=== PATIENT | female | born 1995 | race American Indian/Alaskan Native ===

== ENCOUNTER → 2018-02-15 16:00 | Outpatient (CLI) | payer OTHER, SELFPAY ==
[2018-02-18 14:12] LABS: HPV Reflexed? NOT INDICATED
--- OUTSIDE RECORDS SUMMARY | 2018-04-13 11:46 | XMS RPT_ITS ---
:1995 Author Organization OHIP Care Team Providers Name Role Phone Ladi Mota Attending Unavailable Ladi Mota Referring Unavailable Primay Care Physicia, No Primary Care Unavailable Dillan Reese Attending Unavailable No Doctor Assigned, Nodr Primary Care Unavailable No Doctor Assigned, Nodr Primary Care Unavailable Ana Mackey Admitting Unavailable AsbAna oviedo Attending Unavailable CHESTER SAM Attending Unavailable SELF, SELF Referring Unavailable SAM, CHESTER Fox Attending Unavailable SAM, CHESTER J Referring Unavailable SAM, CHESTER Ruddy Attending Unavailable SELF, SELF Referring Unavailable SAM, CHESTER J Attending Unavailable SELF, SELF Referring Unavailable PROBLEMS PROBLEMS DATE TYPE CONDITION / CODE ATTENDING STATUS SOURCE 02/16/2018 Unknown Z12.4 - Jerry Mota Encounter for [facility] screening for Hospital malignant Repository neoplasm of cervix / Z12.4(ICD-10) 12/27/2017 Admitting Depression / CHESTER SAM Active [employer] Diagnosis 32() J System ([place]) Repository 10/05/2017 Admitting Follow-up / FLACO CHESTER Active [employer] Diagnosis 145() [place] Rep[place] 09/09/2017 Admitting Establish Care / FLACO [place]STER Active [employer] Diagnosis 42() [place] Repository PROCEDURES PROCEDURES No Procedure Records FoundRESULTS RESULTS PAP I-G W/RFX Collected: 02/15/2018 Status: F Source: LILY HRHPV-APTIMA 4:00 PM [facility] REPOSITORY Order Comment: CYTOLOGY INFORMATION: - CLINICAL INFORMATION: - DATE LMP/MENOPAUSE: [id number] LMP - COLLECTION VIAL: Thin Prep Vial - [employer] DIRECTOR SOURCE: CERVICAL/ENDOCERVICAL - COLLECTION TECHNIQUE: BRUSH/SPATULA Specimen Comment: [id number] Specimen Comment: Source.............Cervix;Endocervix Specimen Comment: LMP / Prev Treat...[id number] Specimen Comment: No. of containers..01 ThinPrep Vial TYPE CODE TESTS RESULT OUT OF RANGE REFERENCE UNITS LAB L7400.0800 . Normal DIAGN Comment Result Comment: NEGATIVE FOR INTRAEPITHELIAL LESION AND MALIGNANCY. LAB L7400.0900 . Normal ADEQ Comment Result Comment: Satisfactory for evaluation. Endocervical and/or squamous metaplastic cells (endocervical component) are present. LAB L7400.1400 . Normal PERFORM Comment Result Comment: Ivet Obrien, Supervisory Calendar Control Clerk Blood Bank (ASCP) LAB L7400.2575 . Normal TEST METHOD Comment Result Comment: This liquid based ThinPrep(R) pap test was screened with the use of an image guided system. LAB L7400.2600 . Normal . COMM LAB L7400.2700 . Normal PAPSMR Comment Result Comment: The Pap smear is a screening test designed to aid in the detection of premalignant and malignant conditions of the uterine cervix. It is not a diagnostic procedure and should not be used as the sole means of detecting cervical cancer. Both false-positive and false-negative reports do occur. LAB L7400.2800 . Normal HPV RFLX Comment Result Comment: The HPV DNA reflex criteria were not met with this specimen result therefore, no HPV testing was performed. Performed at: [facility] [address] [id number] Occupational Therapist: Francisca Khoury MD, Phone: [phone] Performed By: #### L7400.0353 #### [facility] (refer to report for specific site) refer to report for address and phone number CBC(NO DIFF) Collected: 09/11/2017 Status: F Source: [place] 10:10 AM SYSTEM ([place]) REPOSITORY TYPE CODE TESTS RESULT OUT OF REFERENCE UNITS RANGE LAB WBC 3.6-11.0 /cmm WBC COUNT 7.5 LAB RBC 4.0-5.4 /cmm RBC COUNT 4.78 LAB HGB 12.0-16.0 G/DL HEMOGLOBIN 14.4 LAB HCT 36.0-48.0 % HEMATOCRIT 41.7 LAB MCV 80.0-100.0 FL MCV 87.1 LAB MCH 26.0-35.0 PG MCH 30.0 LAB MCHC 27.0-37.0 G/DL MCHC 34.4 LAB RDW 11.5-14.5 % RDW 12.7 LAB PLTC 130.0-400.0 /cmm PLATELET COUNT 315 LAB MPV 7.4-11.0 FL MPV 8.9 Performed By: #### CMPF, RTSH, HEMOG #### Testing performed at [facility] [address] [place] [address] CMP FASTING Collected: 09/11/2017 Status: F Source: [facility] 10:10 AM SYSTEM ([place]) REPOSITORY TYPE CODE TESTS RESULT OUT OF REFERENCE UNITS RANGE LAB GLF 70-100 MG/DL GLUCOSE 81 FASTING Result Comment: NORMAL <100 mg/dL PREDIABETES 101-126 mg/dL DIABETES 126 mg/dL or higher LAB BUN 7-20 MG/DL BLOOD UREA 11 NITROGEN LAB CRET 0.52-1.04 MG/DL CREATININE SERUM 0.6 LAB NA 136-145 MMOL/L SODIUM 138 LAB K 3.5-5.1 MMOL/L POTASSIUM 3.9 LAB CL 98-107 MMOL/L CHLORIDE 107 LAB CA 8.4-10.2 MG/DL CALCIUM 9.1 LAB TP 6.3-8.2 GM/DL TOTAL PROTEIN 7.3 LAB ALB 3.5-5.0 G/dl ALBUMIN 4.1 LAB TBIL 0.2-1.2 MG/DL BILIRUBIN TOTAL 0.5 LAB AST 15-41 IU/L AST 17 LAB ALKP 38-126 IU/L ALK 54 PHOSPHATASE LAB CO2 22-30 MMOL/L CO2 23 LAB AG 1.3-2.2 RATIO A:G RATIO 1.3 LAB ALT 14-54 IU/L ALT 14 LAB GFR ml/min/1.73s q.m EST. GFR,Non >60 LAB GFRB ml/min/1.73s q.m EST. GFR, >60 Iranian LAB GFRCOM GFR Information Average GFR for 20-29 years old = 116. Result Comment: Chronic Kidney disease, GFR = <60. Kidney failure, GFR = <15. The GFR estimate is not adjusted for extreme body surface area or acute process, nor has it been validated for women or ethnic groups other than and . Performed By: #### CMPF, RTSH, HEMOG #### Testing performed at [address] [address] TSH,REFLEX FREE T4 Collected: 09/11/2017 Status: F Source: [facility] 10:10 AM [place] ([place] REPOSITORY TYPE CODE TESTS RESULT OUT OF RANGE REFERENCE UNITS LAB RTSH 0.45-5.33 uIU/ML 1.913 TSH,REFLEX FREE T4 Performed By: #### CMPF, RTSH, HEMOG #### Testing performed at [address] [address] Observed: 09/09/2017 Status: F Source: [facility] URINE CULTURE 10:28 AM [place] ([place] REPOSITORY SPECIMEN DESCRIPTION URINE CLEAN CATCH UA DIPSTICK NITRITE NEGATIVE * Result Note: LEUKOCYTE POSITIVE * CULTURE NO PATHOGENS ISOLATED * Result Note: Testing performed at [place] [address] * REPORT STATUS 09/11/2017 * Result Note: FINAL * Performed By: #### AURNC #### Testing performed at [address] [address] [place] [address] ALLERGIES ALLERGIES DATE TYPE / CODE NAME / CODE REACTION SEVERITY SOURCE 04/18/2015 Drug mushroom/[id number] Swelling Unknown [facility] Allergy/416 188(RXNORM) [facility] 224557(SNOM Repository ED CT) Drug/388096 Augmentin HIVES Rastafarian 003(SNOMED [facility] CT) System Repository Drug/937374 No Known [facility] CT) System Repository ENCOUNTERS ENCOUNTERS ADMIT/DISCHARGE ACCOUNT NUMBER ADMITTING ENCOUNTER LOCATION SOURCE CLASS 02/15/2018 [id number] Ambulatory [facility] ding:LABSPEC Repository 12/27/2017 [id number] [facility] 10/30/2017/10/31/19 [id number] [place], Emergency Rastafarian Rastafarian 18 [facility] ding:[facility] EDRoom: Repository 10/30/2017 [id number] Ambulatory [address] [place] [address] Repository 10/05/2017 [id number] [facility] 09/11/2017 [id number] Ambulatory [address] [place] [address] ([place]) Repository 09/09/2017 [id number] Ambulatory [address] [place] [address] ([place]) Repository 04/13/2017/04/13/19 [id number] Ambulatory [address] ding:[facility] Repository IMRoom: Room 4 PAYERS PAYERS ENCOUNTER GUARANTOR PAYER SUBSCRIBER SOURCE [facility] Posey Castella [id number] Insurance:MEDICAL NIROSKYDOB: [facility] [place] Number: Repository [id number]: [phone] [id number] [phone] () Date:[id number] [address]IL: 02/15/2018 Secondary NOT GIVENUNK Lily Insurance:SELF PAY [facility] Number: Effective Repository Date:2018-02-15 10/30/2017 [facility] NIROSKYDOB: Insurance:Medical OSBORNDOB: [facility] Number: [id number] [facility] Repository [place], [place] Date:2017-10-[address] [place] [id number]: [id number] [id number]: Name:Medical MutualPO () [address] [place] [address] ()Tel: [phone]: [phone] 10/30/2017 [facility] NIROSKYDOB: Insurance:Medical NIROSKYDOB: [facility] [id number] Repository [place] Number: [place], [place] [id number] [place], [place] [id number]: Date:Plan Name:Health [id number]: (HP) (HP) 10/30/2017 [facility] Insurance:Medical NIROSKYDOB: [facility] [id number] Repository Number: [place] [id number] [place], [place] Date:Plan Name:Health [id number]: () 04/13/2017 [facility] OSBORNDOB: Insurance:1500 OSBORNDOB: [facility] [place] [id number] System [place] Number: Effective [address] Repository [place], [place] Date:2017-04-[address] [place] [id number]: [id number]: Name:CD:[id number] O () [address], [place] ()Tel: [phone]: [phone]
== END ==
PROVIDERS: Referring Provider Obstetrics & Gynecology; Visit Provider Obstetrics & Gynecology
DX: Z12.4 Encounter for screening for malignant neoplasm of cervix (principal)
CPT/HCPCS: 87624; 88175; G0145

== ENCOUNTER → 2018-06-14 14:58 | Outpatient (CLI) | payer OTHER, SELFPAY ==
[2015-04-18 20:05] VITALS: BMI 45.5
[2018-06-14 17:19] LABS: Chlamydia Trachomatis by PCR Negative (Negative); Neisserai gonorrhoeae by PCR Negative (Negative); Probe Check PASS; Sample Adequacy Control PASS; Specimen Processing Control PASS
== END ==
PROVIDERS: Visit Provider Obstetrics & Gynecology
DX: Z11.3 Encounter for screening for infections with a predominantly sexual mode of transmission (principal)
CPT/HCPCS: 87491; 87591

== ENCOUNTER → 2018-06-30 16:14 | Outpatient (CLI) | payer OTHER, SELFPAY ==
[2015-04-18 20:05] VITALS: BMI 45.5
[2018-06-30 17:51] LABS: Absolute Lymphocyte Count 2.36 X10^3/ul (0.83-4.51); Absolute Neutrophil Count 9.3 X10^3/uL (2.0-7.7); Basophil# 0.02 X10^3/uL; Basophil% 0.2 % (0-1); Eosinophil# 0.11 X10^3/uL; Eosinophils% 0.9 % (0-5); Hematocrit 39.1 % (37-47); Lymphocyte # 2.36 X10^3/ul (4.0); Lymphocyte % 18.9 % (19-41); Mean Corp Hgb Conc 33.2 g/gl (32-36); Mean Corpuscular Hgb 29.2 pg (27.0-32.0); Mean Corpuscular Volume 87.9 fL (81-99); Mean Platelet Vol. 10.6 fl (6.2-12.0); Monocyte# 0.68 X10^3/uL; Monocyte% 5.4 % (0-10); Neutrophil # 9.31 X10^3/uL (2.7-7.7); Neutrophil % 74.4 % (47-70); Platelet Count 297 K/mm3 (150-450); RBC Distribution Width CV 12.4 % (11.6-14.6); RBC Distribution Width SD 39.9 fl (35.1-43.9); Red Blood Count 4.45 M/mm3 (4.2-5.4); White Blood Count 12.5 K/mm3 (4.4-11.0)
[2018-06-30 17:56] LABS: Color, Urine Yellow (Yellow); Glucose, Dipstick Normal (Normal); Ketone-Dipstick Negative (Negative); Leukocyte Esterase-Dipstick Negative /ul (Negative); Nitrite-Dipstick Negative (Negative); Occult Blood-Urine Negative /ul (Negative); Protein-Dipstick Negative (Negative); Urine Bilirubin Dipstick Negative (Negative); Urine Clarity Clear (Clear); Urine Urobilinogen Normal (Normal); Urine pH 6.5 (5.0 - 8.0)
[2018-06-30 18:00] LABS: POSITIVE COUNT NO; POSITIVE DIFFERENTIAL NO; POSITIVE MORPHOLOGY NO
[2018-06-30 18:04] LABS: Amphetamine Urine VISTA NEGATIVE (<1000 ng/mL); Barbiturate Urine VISTA NEGATIVE (< 200 ng/mL); Benzodiazepine Urine VISTA NEGATIVE (< 200 ng/mL); Cocaine Urine VISTA NEGATIVE (< 300 ng/mL); Ecstacy Urine VISTA NEGATIVE (< 500 ng/mL); Methadone Urine VISTA NEGATIVE (< 300 ng/mL); PCP Urine VISTA NEGATIVE (< 25 ng/mL); THC Urine VISTA NEGATIVE (< 50 ng/mL); Vista UDS pH Range 5
[2018-06-30 18:08] LABS: Thyroid Stim Hormone (TSH) 2.87 uIU/mL (0.358-3.74)
[2018-06-30 19:45] LABS: HIV - WCH Non-Reactive (Nonreactive); Rubella IgG > 500.0 IU/mL
[2018-07-01 04:56] LABS: Prenatal RPR NONREACTIVE (NONREACTIVE)
[2018-07-02 15:28] LABS: HEPATITIS B SURFACE AG Negative (Negative); Hep C Antibodies <0.1 s/co ratio (0.0-0.9)
== END ==
PROVIDERS: Visit Provider Obstetrics & Gynecology
DX: Z34.81 Encounter for supervision of other normal pregnancy, first trimester (principal)
CPT/HCPCS: 36415; 80307; 81002; 84443; 85025; 86703; 86762; 86803; 87340

== ENCOUNTER → 2018-10-25 09:48 | Outpatient (CLI) | payer OTHER, SELFPAY ==
[2018-10-25 10:51] LABS: Hematocrit 39.3 % (37-47); Mean Corp Hgb Conc 33.1 g/dL (32-36); Mean Corpuscular Volume 87.5 fL (81-99); Mean Platelet Vol. 10.5 fl (6.2-12.0); Platelet Count 266 K/mm3 (150-450); RBC Distribution Width CV 12.9 % (11.6-14.6); RBC Distribution Width SD 41.1 fl (35.1-43.9); Red Blood Count 4.49 M/mm3 (4.2-5.4)
[2018-10-25 10:52] LABS: Glucose Challenge Gest 1H 50g 100 mg/dL (70-140)
== END ==
PROVIDERS: Visit Provider Obstetrics & Gynecology
DX: Z34.83 Encounter for supervision of other normal pregnancy, third trimester (principal)
CPT/HCPCS: 36415; 82950; 85027

== ENCOUNTER → 2018-12-23 16:27 | Outpatient (CLI) | payer OTHER, SELFPAY ==
[2015-04-18 20:05] VITALS: BMI 45.5
== END ==
PROVIDERS: Visit Provider Obstetrics & Gynecology
DX: Z36.85 Encounter for antenatal screening for Streptococcus B (principal)
CPT/HCPCS: 87081

== ENCOUNTER 2018-12-27 05:05 | Outpatient (CLI) | payer OTHER, SELFPAY ==
[2015-04-18 20:05] VITALS: BMI 45.5
[2018-12-27 05:42] VITALS: BMI 48.5
--- NOTE | 2018-12-28 07:45 | OB.TRI.HP_ITS ---
History of Present Illness Date of Service: 12/27/18 Was patient seen by the physician?: No Reason For Visit: Rule Out Labor Date of Service: 12/27/18 Final AUGUST: 01/15/19 Final AUGUST Source: US <20 weeks Gestational age: 37 Weeks and 3 Days History of Present Illness: Jelani Nagy RN, pt c/o contractions, cervix 2/50/-2 w/o international exchange coordinator time, BP 141/83; BOW intact; other vital signs stable Allergies amoxicillin Allergy (Verified 12/27/18 05:44) Hives mushroom Allergy (Verified 04/18/15 20:25) Swelling NST - FHR Rate Baby A Baseline: 125 Variability:: Moderate Accelerations:: 15 x 15 Decelerations:: None NST Reactive:: Yes FHR Category:: Category I Uterine Activity:: Q 2-3 minutes Impression/Plan Impression: 26yo at 37w2d gestation by L=9w2dUS Matt with no cervical change Reactive NST Plan: Recheck BP, if WNL may discharge home with labor precautions, FM counts, frequent rest periods, increase fluids
== END 2018-12-27 06:10 | disposition home or self-care (01) ==
LOC: WPOUT 05:36 → WP 05:37
PROVIDERS: Referring Provider Obstetrics & Gynecology; Visit Provider Obstetrics & Gynecology
DX: Z34.93 Encounter for supervision of normal pregnancy, unspecified, third trimester (principal); Z3A.37 37 weeks gestation of pregnancy
CPT/HCPCS: 59025; 59050; 99218; G0378

== ENCOUNTER 2019-01-05 14:00 | Outpatient (CLI) | payer OTHER, SELFPAY ==
[2019-01-05 14:38] VITALS: BMI 49.6
--- NOTE | 2019-01-06 10:50 | OB.TRI.NOTE ---
History of Present Illness Reason For Visit: R/O LABOR Date of Service: 01/05/19 Final AUGUST: 01/15/19 Final AUGUST Source: US <20 weeks Gestational age: 38 Weeks and 4 Days History of Present Illness: 38+ week intrauterine presents with some lower abdominal cramping. Allergies amoxicillin Allergy (Verified 01/05/19 14:40) Hives mushroom Allergy (Verified 01/05/19 14:40) Swelling NST - FHR Rate Baby A NST Reactive:: Yes FHR Category:: Category I Impression/Plan 38+ week intrauterine with false labor. No cervical change after observation. Patient discharged home with routine instructions to follow-up when contractions increase. Encouraged p.o. fluid.
== END 2019-01-05 15:30 | disposition home or self-care (01) ==
LOC: WPOUT 14:29 → OBT 14:30
PROVIDERS: Referring Provider Obstetrics & Gynecology; Visit Provider Obstetrics & Gynecology
DX: O47.1 False labor at or after 37 completed weeks of gestation (principal); Z3A.38 38 weeks gestation of pregnancy
CPT/HCPCS: 59025; 59050; 99218; G0378

== ENCOUNTER 2019-01-12 06:55 | Inpatient (IN) | payer OTHER, SELFPAY ==
[2019-01-12] MEDS: Lactated Ringers 1,000 ML 50 ML IV (07:30)
[2019-01-12 07:38] VITALS: BMI 50.1
[2019-01-12 08:00] LABS: Absolute Lymphocyte Count 2.04 X10^3/uL (0.83-4.51); Absolute Neutrophil Count 6.2 X10^3/uL (2.0-7.7); Basophil# 0.03 X10^3/uL; Basophil% 0.3 % (0-1); Eosinophils% 1.1 % (0-5); Hemoglobin 13.8 g/dL (12.0-15.0); Lymphocyte # 2.04 X10^3/ul (4.0); Lymphocyte % 22.1 % (19-41); Mean Corp Hgb Conc 32.9 g/dL (32-36); Mean Corpuscular Volume 85.4 fL (81-99); Monocyte# 0.77 X10^3/uL; Monocyte% 8.4 % (0-10); NRBC Flagged by Analyzer 0 % (0-5); Neutrophil # 6.24 X10^3/uL (2.7-7.7); Neutrophil % 67.8 % (47-70); Platelet Count 249 K/mm3 (150-450); RBC Distribution Width CV 13.6 % (11.6-14.6); RBC Distribution Width SD 41.9 fl (35.1-43.9); Red Blood Count 4.92 M/mm3 (4.2-5.4); White Blood Count 9.2 K/mm3 (4.4-11.0)
[2019-01-12] MEDS: Oxytocin 30 units/NS 500 ml 30 UNITS/500 ML IV.SOLN IV (08:14)
--- NOTE | 2019-01-12 10:45 | PCM.PN.BLA ---
Progress Note LABOR PROGRESS NOTE Contractions are irregular and mild to moderate. Denies headache, vision changes or upper abdominal pain. AVSS, BP 142/89 GEN - NAD, AAO x 3 FHR 135, moderate variability, + accelerations, no decelerations TOCO 1-2/10 min SVE 3/75/-2, moderate and midposition A/P: 24yo @ 39 4/7wga, IOL for macrosomia, Cat I FHR -Amniotomy performed with clear fluid -Continue pitocin as tolerated by mother and fetus
[2019-01-12] MEDS: Lactated Ringers 500 ML 999 ML IV (11:45)
[2019-01-12] MEDS: fentaNYL-bupivacaine (epidural) 100 ML BAG EPIDURAL (12:12)
[2019-01-12] MEDS: Ondansetron 4 MG/2 ML Vial IV (12:51)
[2019-01-12] MEDS: Oxytocin 30 units/NS 500 ml 30 UNITS/500 ML IV.SOLN 334 UNITS IV (15:20)
--- NOTE | 2019-01-12 15:34 | PCM.OPRPT ---
Vaginal Delivery Maternal Presentation: Elective Induction Method of Induction: Pitocin Amniotic Membrane Rupture Type: Artificial Rupture of Membrane time: 01/12/19 1030h Amniotic Fluid Description: Clear Final AUGUST: 01/15/19 Final AUGUST Source: US <20 weeks Gestational age: 39 Weeks and 4 Days Date of Procedure: 01/12/19 Pre-Operative Diagnosis: 39 4/7wga Post-Operative Diagnosis: 39 4/7wga Surgery/ Procedure Performed: Spontaneous Vaginal Delivery Anesthesiologist: Stephan Bhardwaj Type of Anesthesia: Epidural Description of Procedure: Patient was FD\+5 station on my arrival. She pushed once to deliver a vigorous male . was placed on the maternal abdomen and further attended by nursery personnel. The cord was doubly clamped and cut. The placenta delivered spontaneously and appeared intact on inspection. First degree perineal laceration was repaired with 3-0 Vicryl. An intrauterine exam was performed with retrieval of clot without hemorrhage. The fundus was firm. Sponge counts were correct x 2. Presentation: Vertex Placental Delivery Description: Spontaneous Placenta Disposition: [facility] Cord Vessel Description: 3 Vessels Nuchal Cord Compression: Without compression Cord Entanglement: None Estimated Blood Loss: 250 ml Infant A gender: Male (1 minute): 8 (5 minute): 9 Episiotomy Description: None Laceration: Midline, 1st degree Medications given after delivery: IV Pitocin Complications: None
[2019-01-12] MEDS: Ibuprofen 600 MG Tablet PO (17:31)
[2019-01-12 17:45] VITALS: BP 168/89; PULSE 94; RESP 18; TEMP 37.6
[2019-01-12 18:23] LABS: Hematocrit 40.7 % (37-47); Hemoglobin 13.2 g/dL (12.0-15.0); Mean Corp Hgb Conc 32.4 g/dL (32-36); Mean Corpuscular Hgb 27.8 pg (27.0-32.0); Mean Corpuscular Volume 85.7 fL (81-99); Mean Platelet Vol. 11.8 fl (6.2-12.0); Platelet Count 202 K/mm3 (150-450); RBC Distribution Width CV 13.6 % (11.6-14.6); RBC Distribution Width SD 41.5 fl (35.1-43.9); Red Blood Count 4.75 M/mm3 (4.2-5.4); White Blood Count 17.4 K/mm3 (4.4-11.0)
[2019-01-12 18:35] VITALS: BP 141/74; PULSE 96; RESP 16; TEMP 36.9
[2019-01-12 19:08] LABS: Uric Acid 8.2 mg/dL (2.6-6.0)
[2019-01-12 19:34] LABS: ALB/GLOB Ratio 0.8 RATIO (0.9-2.4); AST(SGOT) 20 U/L (15-37); Alanine Aminotransfer ALT/SGPT 12 U/L (13-56); Albumin, Serum 2.6 g/dL (3.2-5.0); Alkaline Phosphatase 126 U/L (45-117); Anion Gap 11 (5-15); BUN 9 mg/dL (7-18); Calcium,Total 8.7 mg/dL (8.5-10.1); Chloride 108 mmol/L (98-107); EST Glomerular Filtration Rate 129 mL/min (>60); Est Glom Filt Rate - Afr Amer 157 mL/min (>60); Estimated Creatinine Clearance 123.77 ml/min; Globulin 3.4 g/dL (2.2-4.2); Glucose 67 mg/dL (74-106); Sodium Level 139 mmol/L (136-145)
[2019-01-12] MEDS: Acetaminophen 500 MG Tablet 1000 MG PO (19:38)
[2019-01-12 20:56] VITALS: BP 138/86; PULSE 99; RESP 16; TEMP 35.9; O2SAT 97
[2019-01-13 00:45] VITALS: BP 141/83; PULSE 98; RESP 16; TEMP 36.4
[2019-01-13] MEDS: Ibuprofen 600 MG Tablet PO ×2 (01:44→12:25)
[2019-01-13 04:30] VITALS: BP 129/88; PULSE 88; RESP 18; TEMP 36.5
--- NOTE | 2019-01-13 06:29 | PCM.PN.OB ---
Subjective: Feels well, no complaints. MIld cramping relieved with Ibuprofen. nursing well. Denies heavy lochia. Objective: avss - Physical Exam Vitals/I&O's: Vital Signs Temp Pulse Resp BP Pulse Ox 97.7 F L 88 18 129/88 H 97 01/13/19 04:30 01/13/19 04:30 01/13/19 04:30 01/13/19 04:30 01/12/19 20:56 Oxygen Delivery Method Room Air Weight: 132.619 kg Body Mass Index (BMI) 50.1 Intake and Output for Last 24 Hours 01/11/19 01/12/19 01/13/19 23:59 23:59 23:59 Intake Total 1862.66 / 1862.66 Output Total 1025 / 1025 Balance 837.66 / 837.66 General: Alert, Oriented x3, Cooperative, No apparent distress HEENT: Atraumatic, Normocephalic Lungs: Clear to auscultation, Normal air movement Cardiovascular: Regular rate, Regular Rhythm, Normal S1, Normal S2 Abdomen: Soft, Non Tender, Non-Distended, - - Pannal edema, fundus firm and nontender Extremities: No Calf Tenderness, - - no pitting pedal edema Neurological: Neuro grossly intact Psych/Mental Status: Normal Affect, Appropriate, Alert and oriented to time, place, person, mood and affect Laboratory Results 01/12/19 07:30: WBC 9.2, RBC 4.92, Hgb 13.8, Hct 42.0, MCV 85.4, MCH 28.0, MCHC 32.9, RDW Std Deviation 41.9, RDW Coeff of Xavi 13.6, Plt Count 249, MPV 12.0, Immature Gran % (Auto) 0.300, Neut % (Auto) 67.8, Lymph % (Auto) 22.1, [place] % (Auto) 8.4, Eos % (Auto) 1.1, Baso % (Auto) 0.3, Absolute Neuts (auto) 6.2, Absolute Lymphs (auto) 2.04, Nucleated RBC % 0 01/12/19 07:30: Blood Type AB POSITIVE, Antibody Screen NEGATIVE 01/12/19 18:05: WBC 17.4 H, RBC 4.75, Hgb 13.2, Hct 40.7, MCV 85.7, MCH 27.8, MCHC 32.4, RDW Std Deviation 41.5, RDW Coeff of Xavi 13.6, Plt Count 202, MPV 11.8 01/12/19 18:05: Uric Acid 8.2 H 01/12/19 18:05: Sodium 139, Potassium 4.0, Chloride 108 H, Carbon Dioxide 20.0 L, Anion Gap 11, BUN 9, Creatinine 0.60, Estim Creat Clear Calc 123.77, Est GFR (MDRD) Af Amer 157, Est GFR (MDRD) Non-Af 129, BUN/Creatinine Ratio 15.0, Glucose 67 L, Calcium 8.7, Total Bilirubin 0.40, AST 20, ALT 12 L, Alkaline Phosphatase 126 H, Total Protein 6.0 L, Albumin 2.6 L, Globulin 3.4, Albumin/Globulin Ratio 0.8 L Current Medications Acetaminophen (Tylenol) 1,000 mg PO Q8H PRN PRN PRN Reason: Pain Score 1-3/10 Last Admin: 01/12/19 19:38 Dose: 1,000 mg Documented by: Bisacodyl (Dulcolax) 10 mg RECTAL UD PRN PRN Reason: If no BM Dibucaine (Dibucaine) 1 applic TOPICAL TID PRN PRN; Protocol PRN Reason: Discomfort Hydrocortisone (Hytone) 1 applic TOPICAL TID PRN PRN; Protocol PRN Reason: Discomfort Ibuprofen (Motrin) 600 mg PO Q6H PRN PRN PRN Reason: Pain Score 1-3/10 Last Admin: 01/13/19 01:44 Dose: 600 mg Documented by: Methylergonovine Maleate (Methergine) 0.2 mg IM X1 PRN PRN Reason: Excess bleeding/uterine atony Ondansetron HCl (Zofran) 4 mg IV Q4H PRN PRN PRN Reason: Nausea Multivit/Folic Acid/Iron (Prenatabs Fa) 1 tablet PO DAILY@1200 DUY Senna/Docusate Sodium (Senokot-S, Kennedi-Colace) 1 - 2 tablet PO DAILY PRN PRN PRN Reason: Constipation Simethicone (Mylicon) 80 mg PO PCHS PRN PRN Reason: Indigestion/Stomach pain Sodium Chloride () 5 - 15 ml IV UD PRN PRN Reason: SALINE FLUSH Medical Necessity - Tobacco Use Smoking Status: Former smoker Assessment/Plan 24yo PPD#1 s/p doing well. - AB pos, Rubella immune -Routine care -Plan for d/c later today
--- NOTE | 2019-01-13 06:33 | PCM.HP.OB ---
- Problem List (1) 39 weeks gestation of Status: Acute History Date of Admission: 01/12/19 Final AUGUST: 01/15/19 Final AUGUST Source: US <20 weeks Gestational age: 39 Weeks and 4 Days History of this : This is a 24 year-old, G [], P [], at 39 weeks gestational age. Medical History: Medical History (Last Updated 01/13/19 @ 06:38 by Ladi Mota MD) Depression F32.9 Psoriasis L40.9 Seasonal allergies J30.2 Allergies amoxicillin Allergy (Verified 01/05/19 14:40) Hives mushroom Allergy (Verified 01/05/19 14:40) Swelling Home Medications: Home Medications Vits [Prenatabs FA] 1 tablet PO DAILY 04/18/15 Ibuprofen [Motrin] 600 mg PO TID PRN #30 tab 01/12/19 Smoking Status: Former smoker Alcohol: None Number of Fetus(es): 1 NST - FHR Rate Baby A Baseline: 135 Variability:: Moderate Accelerations:: 15 x 15 Decelerations:: None NST Reactive:: Yes FHR Category:: Category I Uterine Activity:: 210 History Past Pregnancies: Past Pregnancies Delivery Date Name GA/Weeks Outcome Route Weight Gender Labor Length Anesthesia Delivery Location FOB [place] 38 IOL, gHTN 8lb4oz M 36 Epidural [facility] Itz 03/2017 6 SAB SAB Labs: Mom's Problem List Problem Status Onset Code 39 weeks gestation of Acute Z3A.39 Mom's Labs & Results 01/12/19 01/12/19 01/12/19 07:30 07:30 18:05 WBC 9.2 17.4 H RBC 4.92 4.75 Hgb 13.8 13.2 Hct 42.0 40.7 MCV 85.4 85.7 MCH 28.0 27.8 MCHC 32.9 32.4 RDW Std Deviation 41.9 41.5 RDW Coeff of Xavi 13.6 13.6 Plt Count 249 202 MPV 12.0 11.8 Immature Gran % (Auto) 0.300 Neut % (Auto) 67.8 Lymph % (Auto) 22.1 [place] % (Auto) 8.4 Eos % (Auto) 1.1 Baso % (Auto) 0.3 Absolute Neuts (auto) 6.2 Absolute Lymphs (auto) 2.04 Nucleated RBC % 0 Sodium Potassium Chloride Carbon Dioxide Anion Gap BUN Creatinine Estim Creat Clear Calc Est GFR (MDRD) Af Amer Est GFR (MDRD) Non-Af BUN/Creatinine Ratio Glucose Uric Acid Calcium Total Bilirubin AST ALT Alkaline Phosphatase Total Protein Albumin Globulin Albumin/Globulin Ratio Blood Type AB POSITIVE Antibody Screen NEGATIVE 01/12/19 01/12/19 18:05 18:05 WBC RBC Hgb Hct MCV MCH MCHC RDW Std Deviation RDW Coeff of Xavi Plt Count MPV Immature Gran % (Auto) Neut % (Auto) Lymph % (Auto) [place] % (Auto) Eos % (Auto) Baso % (Auto) Absolute Neuts (auto) Absolute Lymphs (auto) Nucleated RBC % Sodium 139 Potassium 4.0 Chloride 108 H Carbon Dioxide 20.0 L Anion Gap 11 BUN 9 Creatinine 0.60 Estim Creat Clear Calc 123.77 Est GFR (MDRD) Af Amer 157 Est GFR (MDRD) Non-Af 129 BUN/Creatinine Ratio 15.0 Glucose 67 L Uric Acid 8.2 H Calcium 8.7 Total Bilirubin 0.40 AST 20 ALT 12 L Alkaline Phosphatase 126 H Total Protein 6.0 L Albumin 2.6 L Globulin 3.4 Albumin/Globulin Ratio 0.8 L Blood Type Antibody Screen Course Did the patient receive Yes care? Labs Blood Type: AB RH: POSITIVE RPR/VDRL/Syphilis Nonreactive Rubella status Immune HbSAg Negative Date Done: 06/30/18 Chlamydia Negative Gonorrhea Negative HIV/AIDS Non-Reactive Group B Strep: Negative Current Obstetrical History Gestational Diabetes No Incompetent Cervix No Infertility No IUGR No Macrosomia Yes Hypertension/Pre-eclampsia No Placenta Previa/Abruption No PTL/PROM No Uterine anomaly No Oligohydramnios No Polyhydramnios No Multiple gestation No Past Medical History Asthma No Diabetes No Hypertension No Heart disease No Mitral valve prolapse No Neurologic/Seizure disorder/ No Migraines Kidney disease No Liver disease No Varicosities No Clotting disorders/Hx of DVT No Thyroid Dysfunction No Other medical diseases No Psychiatric disorders No Major trauma No Abnormal PAP smear No Sleep apnea No Mammogram in the last 2 years No Social History Marital Status: Alleged father Itz Hx Smoking Yes Smoking Status Former smoker Expected Infant Delivery Method: Spontaneous Vaginal Number of Visits: 11 Physical Exam Vitals: Vital Signs Temp Pulse Resp BP Pulse Ox 97.7 F L 88 18 129/88 H 97 01/13/19 04:30 01/13/19 04:30 01/13/19 04:30 01/13/19 04:30 01/12/19 20:56 General: Alert, Oriented x3, Cooperative, No apparent distress HEENT: Atraumatic, Normocephalic Cardiovascular: Regular rate, Regular Rhythm Lungs: Normal air movement Abdomen: Soft, Non Tender, Non-Distended, Gravid Extremities:: Other - b/l pedal nonpitting edema Neurological: Neuro grossly intact HEAD FILTER PRESS TENDER: Normal external genitalia Estimated gestational size: Appropriate for gestational size Presentation: Cephalic Cervix Dilation (cm): 2 Station: -3 Effacement (%): 75 Assessment/Plan All Active Problems 39 weeks gestation of (Acute) 24yo @ 39 4/7wga for scheduled IOL, Cat I FHR - macrosomia with EFW approx 4300g -Pitocin
[2019-01-13] MEDS: Acetaminophen 500 MG Tablet 1000 MG PO (06:47)
[2019-01-13 07:50] VITALS: BP 139/89; PULSE 88; RESP 16; TEMP 36.2
[2019-01-13] MEDS: Prenatal Vits Tablet 1 TABLET PO (12:25)
[2019-01-13 12:30] VITALS: BP 145/80; PULSE 86; RESP 18; TEMP 36.5
[2019-01-13 17:25] VITALS: BP 137/80; PULSE 80; RESP 18; TEMP 36.6
== END 2019-01-13 17:25 | disposition home or self-care (01) | DRG 807 ==
PROVIDERS: Admitting Provider Obstetrics & Gynecology; Referring Provider Obstetrics & Gynecology; Visit Provider Obstetrics & Gynecology
DX: O36.63X0 Maternal care for excessive fetal growth, third trimester, not applicable or unspecified (principal); O69.81X0 Labor and delivery complicated by cord around neck, without compression, not applicable or unspecified; O70.0 First degree perineal laceration during delivery; Z87.891 Personal history of nicotine dependence; Z3A.39 39 weeks gestation of pregnancy; Z37.0 Single live birth
CPT/HCPCS: 59025; 59050; 80053; 84550; 85025; 85027; 86850; 86900; 86901; 99218; J7120; G0378; J2405

== ENCOUNTER → 2023-12-30 | Outpatient (CLI) | payer BC, SELFPAY ==
[2023-12-30 12:24] LABS: Absolute Lymphocyte Count 1.77 X10^3/uL (0.83-4.51); Absolute Neutrophil Count 6.7 X10^3/uL (2.0-7.7); Basophil# 0.03 X10^3/uL; Basophil% 0.3 % (0-1); Eosinophil# 0.09 X10^3/uL; Hemoglobin 13.6 g/dL (12.0-15.0); Lymphocyte # 1.77 X10^3/ul (0.83-4.51); Lymphocyte % 19.3 % (19-41); Mean Corp Hgb Conc 33.2 g/dL (32-36); Mean Corpuscular Hgb 29.6 pg (27.0-32.0); Mean Corpuscular Volume 89.1 fL (81-99); Mean Platelet Vol. 10.8 fl (6.2-12.0); Monocyte# 0.57 X10^3/uL; Monocyte% 6.2 % (0-10); NRBC Flagged by Analyzer 0 % (0-5); Neutrophil # 6.67 X10^3/uL (2.7-7.7); Neutrophil % 72.9 % (47-70); Platelet Count 279 K/mm3 (150-450); RBC Distribution Width CV 12.3 % (11.6-14.6); RBC Distribution Width SD 40.3 fl (35.1-43.9); White Blood Count 9.2 K/mm3 (4.4-11.0)
[2023-12-30 12:44] LABS: Protein, Urine (Random) < 6.0 mg/dL (<11.9)
[2023-12-30 12:57] LABS: ALB/GLOB Ratio 0.8 RATIO (0.9-2.4); AST(SGOT) 12 U/L (15-37); Alanine Aminotransfer ALT/SGPT 15 U/L (13-56); Albumin, Serum 3.2 g/dL (3.2-5.0); Alkaline Phosphatase 51 U/L (45-117); Anion Gap 7 (5-15); BUN 9 mg/dL (7-18); BUN/Creat Ratio 13.8 RATIO (10-20); Calcium,Total 9.3 mg/dL (8.5-10.1); Chloride 109 mmol/L (98-107); Creatinine, Serum 0.65 mg/dL (0.55-1.02); EST Glomerular Filtration Rate 113 mL/min (>60); Est Glom Filt Rate - Afr Amer 137 mL/min (>60); Globulin 3.8 g/dL (2.2-4.2); Glucose 93 mg/dL (74-106); Potassium 4.1 mmol/L (3.5-5.1); Sodium Level 137 mmol/L (136-145); T4 Free Direct 0.88 ng/dL (0.76-1.46)
[2023-12-30 13:18] LABS: HIV - WCH Non-Reactive (Nonreactive); Hepatitis B Surface Antigen Non-Reactive (Nonreactive); Hepatitis C Antibody Non-Reactive (Nonreactive); Rubella IgG Reactive (Nonreactive); Syphilis Antibodies Non-reactive
[2023-12-30 13:34] LABS: Hemoglobin A1c 4.8 % (3.8-5.6)
[2023-12-31 20:08] LABS: Chlamydia By Nucleic Acid AMP Negative (Negative); Gonococcus By Nucleic Acid AMP Negative (Negative)
[2024-01-05 16:24] LABS: HPV Reflexed? NOT INDICATED
== END | disposition home or self-care (01) ==
PROVIDERS: Referring Provider Advanced Practice Midwife; Visit Provider Advanced Practice Midwife
DX: Z34.90 Encounter for supervision of normal pregnancy, unspecified, unspecified trimester (principal)
CPT/HCPCS: 36415; 80053; 81241; 82570; 83036; 84156; 84439; 84443; 85025; 86703; 86762; 86780; 86803; 86850; 86900; 86901; 87086; 87088; 87340; 87491; 87591; 88175; G0145

== ENCOUNTER → 2024-03-10 | Outpatient (CLI) | payer BC, SELFPAY ==
--- NOTE | 2024-03-10 12:13 | US_ITS ---
EXAM: US SECOND OR THIRD TRIMESTER , TRANSABDOMINAL CLINICAL INDICATION: anatomy/cervical length TECHNIQUE: Transabdominal obstetrical ultrasound of the maternal pelvis and a second or third trimester with image documentation. COMPARISON: No relevant prior studies available. FINDINGS: FETUS: HEART RATE: 153 bpm. PRESENTATION: Cephalic-variable. PLACENTA: Anterior-fundal. Grade 0. No placenta previa. No abruption. AMNIOTIC FLUID: Unremarkable. Largest vertical pocket 4.6 cm. ANATOMY: cord insertion appears unremarkable. Cerebellum and 4.7 mm mm cisterna magna, 6 mm lateral ventricle, lumbosacral spine, cervical-thoracic spine, three-vessel cord, four-chamber heart, renal fossa, stomach, bladder, profile appear unremarkable. BIOMETRICS GESTATIONAL AGE: AUGUST: 21 weeks 0 days. EFW: 417 g, 55th percentile. BPD: 20 weeks 6 days. HC: 21 weeks 3 days. AC: 21 weeks 5 days. FL: 20 weeks 6 days. MATERNAL: UTERUS: Unremarkable. No myometrial mass. CERVIX: Unremarkable as visualized. The cervix is closed. Estimated to be 5.6 cm in length on transvaginal exam. ADNEXA: Nonvisualized ovaries. FREE FLUID: None. US/OB Anatomy w/ Transvaginal IMPRESSION: Single live intrauterine . No acute abnormality. Symmetric measurements, consistent with 21 weeks 0 days. Electronically Signed: Sofie Larios MD at 1:40 EST ,
== END | disposition home or self-care (01) ==
LOC: US 12:13
PROVIDERS: Referring Provider Nurse Practitioner Women's Health; Visit Provider Nurse Practitioner Women's Health
DX: O09.92 Supervision of high risk pregnancy, unspecified, second trimester (principal); Z3A.21 21 weeks gestation of pregnancy
CPT/HCPCS: 76805; 76817

== ENCOUNTER → 2024-04-17 | Outpatient (CLI) | payer BC, SELFPAY ==
[2024-04-17 12:21] LABS: Absolute Neutrophil Count 7.2 X10^3/uL (2.0-7.7); Basophil# 0.03 X10^3/uL; Basophil% 0.3 % (0-1); Eosinophil# 0.08 X10^3/uL; Eosinophils% 0.9 % (0-5); Hematocrit 38.5 % (37-47); Hemoglobin 12.6 g/dL (12.0-15.0); Lymphocyte % 13.3 % (19-41); Mean Corp Hgb Conc 32.7 g/dL (32-36); Mean Corpuscular Hgb 29.2 pg (27.0-32.0); Mean Corpuscular Volume 89.3 fL (81-99); Monocyte# 0.48 X10^3/uL; Monocyte% 5.3 % (0-10); NRBC Flagged by Analyzer 0 % (0-5); Neutrophil # 7.15 X10^3/uL (2.7-7.7); Neutrophil % 79.6 % (47-70); Platelet Count 258 K/mm3 (150-450); RBC Distribution Width CV 13.2 % (11.6-14.6); RBC Distribution Width SD 43.4 fl (35.1-43.9); Red Blood Count 4.31 M/mm3 (4.2-5.4)
[2024-04-17 12:29] LABS: Glucose Challenge Gest 1H 50g 151 mg/dL (70-140)
[2024-04-17 12:59] LABS: HIV - WCH Non-Reactive (Nonreactive); Syphilis Antibodies Non-reactive
== END | disposition home or self-care (01) ==
LOC: BWCLAB 08:41
PROVIDERS: Referring Provider Obstetrics & Gynecology; Visit Provider Obstetrics & Gynecology
DX: O09.92 Supervision of high risk pregnancy, unspecified, second trimester (principal); Z13.1 Encounter for screening for diabetes mellitus; Z3A.00 Weeks of gestation of pregnancy not specified
CPT/HCPCS: 36415; 82950; 85025; 86703; 86780

== ENCOUNTER → 2024-04-25 | Outpatient (CLI) | payer BC, SELFPAY ==
[2024-04-25 07:48] LABS: Glucose GTT-Gestation. Fasting 79 mg/dL (<105)
[2024-04-25 08:52] LABS: Glucose GTT-Gestational 1 Hr 198 mg/dL (<190)
[2024-04-25 09:45] LABS: Glucose GTT-Gestational 2 Hr 166 mg/dL (<165)
[2024-04-25 10:51] LABS: Glucose GTT-Gestational 3 Hr 50 L (<145)
== END | disposition home or self-care (01) ==
LOC: LAB 06:44
PROVIDERS: Referring Provider Nurse Practitioner Women's Health; Visit Provider Nurse Practitioner Women's Health
DX: Z13.1 Encounter for screening for diabetes mellitus (principal)
CPT/HCPCS: 36415; 82951; 82952

== ENCOUNTER → 2024-05-23 | Outpatient (CLI) | payer BC, SELFPAY ==
--- NOTE | 2024-05-23 09:52 | US_ITS ---
PROCEDURE: OB LIMITED WITH BIOMETRICS REASON FOR EXAM: growth. COMPARISON: Comparison is made with prior study dated March 10, 2024 FINDINGS Number: 1 Position: Vertex Placental Position: Anterior and not low-lying. Placental Abnormalities: None. DIMENSIONS: Biparietal Diameter: 8.5 cm: 34 weeks and 0 days: 94 percentile/ Head Circumference: 30.7 cm: 34 weeks and 1 day: 80 percentile/ Abdominal Circumference: 29.8 cm: 33 weeks and 5 days: 94 percentile/ Femur Length: 6.11 cm: 31 weeks and 5 days: 35th percentile/ ESTIMATED WEIGHT: 2162 g plus/-324 g ESTIMATED WEIGHT PERCENTILE (24+ weeks): 86 ESTIMATED GESTATIONAL AGE: Baseline: 31 weeks and 5 days By Ultrasound: 31 weeks and 4 days ESTIMATED DATE OF DELIVERY: Baseline: July 20, 2024 By Ultrasound: July 21, 2024 BIOPHYSICAL ASSESSMENT: Amniotic Fluid Volume: Subjectively normal. Amniotic Fluid Index: 16.6 (8-24 cm normal range) Cardiac Motion: 137 beats per minute (average) Trunk and Limb Motion: Present. MATERNAL ANATOMY: Adnexa: Neither maternal ovary is successfully identified. US/OB Limited With Biometrics IMPRESSION: Single live intrauterine gestation with a mean gestational age of 31 weeks and 4 days. Reading Location: [facility]
== END | disposition home or self-care (01) ==
LOC: US 09:51
PROVIDERS: Referring Provider Obstetrics & Gynecology; Visit Provider Obstetrics & Gynecology
DX: O99.213 Obesity complicating pregnancy, third trimester (principal); Z3A.32 32 weeks gestation of pregnancy
CPT/HCPCS: 76816

== ENCOUNTER → 2024-06-12 | Outpatient (CLI) | payer BC, SELFPAY ==
--- NOTE | 2024-06-12 12:25 | US_ITS ---
EXAM: Biophysical Prof w/o nonstress CLINICAL HISTORY: well-being TECHNIQUE: Biophysical Prof w/o nonstress ultrasound FINDINGS: Single live intrauterine . age by LMP 34 weeks 4 days, AUGUST 07/20/2024. heart rate 132 beats per minute. Presentation cephalic. CHA 20 cm, largest pocket 7.4 cm. Anterior placenta is not low lying. Grade 2. Breathing movements: 2 out of 2 Gross body movements: 2/2 tone: 2/2 Amniotic fluid volume: 2/2 US/Biophysical Prof W/O Non Stres IMPRESSION: Single live intrauterine as above. Biophysical profile 8 out of a to nick of 8. Reading Location: [id number]
== END | disposition home or self-care (01) ==
PROVIDERS: Referring Provider Obstetrics & Gynecology; Visit Provider Obstetrics & Gynecology
DX: O99.213 Obesity complicating pregnancy, third trimester (principal); Z3A.34 34 weeks gestation of pregnancy
CPT/HCPCS: 76819

== ENCOUNTER 2024-06-19 12:15 | Outpatient (CLI) | payer BC, SELFPAY ==
[2024-06-19] VITALS (11 sets, daily range): BP systolic 132–141; BP diastolic 62–72; PULSE 68–94; RESP 18; TEMP 36.7; O2SAT 98–100; BMI 46.3
--- NOTE | 2024-06-19 12:26 | US_ITS ---
PROCEDURE: BIOPHYSICAL PROF W/O NON STRES 06/19/2024 REASON FOR EXAM: WELL BEING TECHNIQUE: Biophysical profile was obtained. COMPARISON: Comparison is made with prior study dated April 25, 2024. FINDINGS: position: Breech heart rate: 149 beats per minute: Amniotic fluid: Within normal limits. Largest fluid pocket: 5.8 cm x 6.2 cm Amniotic fluid index: 16.7 cm. Placenta location: Anterior and not low-lying. Placenta grade: 2 Biophysical profile: Breathing movements 0 Gross body movements: 2 tone: 2 amniotic fluid volume: 2 Total score: 6/8. US/Biophysical Prof W/O Non Stres IMPRESSION: Biophysical profile score: 6/8. Reading Location: [facility]
--- NOTE | 2024-06-19 14:37 | OB.TRI.PN ---
Progress Notes Date of Service: 06/19/24 Progress Note: Patient presents for triage evaluation secondary to NST after BPP 08/27 FHT: 135 Moderate variability reactive no decelerations category I tracing [place]ana: mild-moderate Contractions Assessment and plan: cervical exam done and 1/thick/posterior per nursing, encourage oral hydration, Reactive NST, reassuring maternal and status patient discharged to home to follow-up in office or return to if contractions worsen. See problem list details for additional plan information. Charges/Coding Multi Select Codes Urinary/Genital Urinary/Genital CPT Codes: 87544-44 non-stress test Interp Assessment & Plan (1) Gestational diabetes: COMMENT: nutrition consult, glucose testing fasting & 2 hr PP (2) Abnormal glucose level: COMMENT: 3 HR GTT-failed. (3) 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, antepartum: COMMENT: Pt has not had any clotting event that requires anticoagulation during this . She had a suboptimal management for PE so I do not think she had PE. daily ASA, lovenox X 6 wk pp If c section (4) Obesity affecting : QUALIFIERS: Trimester: second trimester Obesity type affecting : unspecified obesity Qualified Code(s): O99.212 - Obesity complicating , second trimester COMMENT: HgB A1C ordered, growth US 32, 36 weeks, bpp weely 34 weeks on (5) Request for sterilization: COMMENT: After this (6) Former smoker: COMMENT: Stopped 2 years ago (7) Supervision of high-risk : QUALIFIERS: Trimester: second trimester Qualified Code(s): O09.92 - Supervision of high risk , unspecified, second trimester COMMENT: PRR, , AUGUST 07/20/24, PC: Jillian, : Itz (8) : QUALIFIERS: Weeks of gestation: 34 weeks Qualified Code(s): Z3A.34 - 34 weeks gestation of COMMENT: Carrier neg. , NIPT low risk. Nl anatomy (9) H/O pre-eclampsia in prior , currently : COMMENT: with first , Pre-e baseline labs ordered-asa at 12 weeks (10) Ovarian cyst: QUALIFIERS: Laterality: unspecified laterality Qualified Code(s): N83.209 - Unspecified ovarian cyst, unspecified side COMMENT: on L ovary + Fibroids (11) Anxiety and depression: (12) Seasonal allergies: (13) High cholesterol: COMMENT: Stopped Statin in October - controlling with diet & exercise (14) NST (non-stress test) reactive: COMMENT: had BPP 08/27. now 10/29 d/c home
== END 2024-06-19 14:45 | disposition home or self-care (01) ==
LOC: OPUS 12:26 → WPOUT 13:27 → WP 13:27
PROVIDERS: Referring Provider Obstetrics & Gynecology; Visit Provider Advanced Practice Midwife
DX: O24.419 Gestational diabetes mellitus in pregnancy, unspecified control (principal); O99.113 Other diseases of the blood and blood-forming organs and certain disorders involving the immune mechanism complicating pregnancy, third trimester; D68.51 Activated protein C resistance; O99.213 Obesity complicating pregnancy, third trimester; O34.83 Maternal care for other abnormalities of pelvic organs, third trimester; N83.202 Unspecified ovarian cyst, left side; O99.283 Endocrine, nutritional and metabolic diseases complicating pregnancy, third trimester; E78.00 Pure hypercholesterolemia, unspecified; O99.343 Other mental disorders complicating pregnancy, third trimester; F32.A Depression, unspecified; F41.9 Anxiety disorder, unspecified; Z79.82 Long term (current) use of aspirin; Z3A.34 34 weeks gestation of pregnancy; Z87.59 Personal history of other complications of pregnancy, childbirth and the puerperium; Z87.891 Personal history of nicotine dependence
CPT/HCPCS: 59025; 59050; 76819; 99221; G0378

== ENCOUNTER → 2024-06-23 | Outpatient (CLI) | payer BC, SELFPAY | END | disposition home or self-care (01) | LOC: LABSPEC 11:13 | PROVIDERS: Referring Provider Advanced Practice Midwife; Visit Provider Advanced Practice Midwife | DX: O09.92 Supervision of high risk pregnancy, unspecified, second trimester (principal); Z3A.00 Weeks of gestation of pregnancy not specified | CPT/HCPCS: 87081 ==

== ENCOUNTER → 2024-06-27 | Outpatient (CLI) | payer BC, SELFPAY ==
--- NOTE | 2024-06-27 16:28 | US_ITS ---
PROCEDURE: BIOPHYSICAL PROF W/O NON STRES (USBIOWO), 06/27/2024 REASON FOR EXAM: WELL BEING. Reportedly 36 weeks 5 days with AUGUST 07/20/2024 by previously established dates TECHNIQUE: Grayscale and color/spectral doppler transabdominal pelvic ultrasound was performed with attention to the uterus and associated gestation. COMPARISON: 06/19/2024 FINDINGS: A single fetus is identified. Cardiac activity: Present, 147 bpm. position: Transverse. Amniotic Fluid Index: 19.9 (normal 5-25), deepest vertical pocket 6.7 (normal 2-8). Placenta: Anterior. A limited obstetrical ultrasound was performed to determine biophysical profile score: Breathing movement: 2 Gross Body movement: 2 Tone: 2 Qualitative Amniotic Fluid: 2 biometry: Biparietal diameter: 9.4 cm, corresponding to 38 weeks 1 day. Head circumference: 33.6 cm, corresponding to 38 weeks 4 days. Occipitofrontal diameter: 11.6 cm, corresponding gestational age not available. Abdominal circumference: 33.9 cm, corresponding to 37 weeks 6 days. Femur length: 6.8 cm, corresponding to 34 weeks 5 days. Composite gestational age: 37 weeks 3 days by today's measurements. Estimated Weight (EFW): 3,143 g +/- 471 g, 67th percentile based on previously established dates. Estimated delivery date (AUGUST): 07/14/2024 by today's measurements. Other: No significant visualized pelvic free fluid. Note borderline low normal femur length to abdominal circumference ratio of 19.92 (lower limit of normal is 20.0). US/Biophysical Prof W/O Non Stres IMPRESSION: 1. Single fetus in transverse positioning at 37 weeks 3 days with AUGUST by today's measurements. Correlate with clinical factors including previously established dates. 2. Estimated weight 3,143 g +/- 471 g, 67th percentile based on provided previously established dates. biometry as above. 3. Note borderline low normal femur length to abdominal circumference ratio of 19.92 (lower limit of normal is 20.0). 4. Additional description as above. Reading Location: [id number]
--- NOTE | 2024-06-27 16:28 | US_ITS ---
EXAM: OB LIMITED WITH BIOMETRICS 06/27/2024 CLINICAL HISTORY: growth COMPARISON: 05/23/2024 TECHNIQUE: Ob ultrasound limited with biometrics transabdominal imaging FINDINGS: Transabdominal imaging. Single live intrauterine with a transverse left presentation. cardiac activity 147 beats per minute. Cervical length is not visualized. Adnexa are not visualized. CHA 19.9 cm, maximum vertical pocket 6.7 cm. Anterior grade 2 placenta appears within limits, not low-lying. BPD: 9.4 cm, 38 weeks 1 day, 92% HC: 33.6 cm, 38 weeks 4 days, 68% AC: 33.9 cm, 37 weeks 6 days, 87% FL: 6.8 cm, 34 weeks 5 days, 7% FL/AC 20%, FL/BPD 72%, FL/HC 20% *, CI 81%, HC/AC 0.99 * FL/HC 19.92 %, range 20.00- 24.00%, 36 weeks 5 days * Estimated weight 3143 g +/-471 g, 67% Estimated age by current ultrasound 37 weeks 3 days, AUGUST 07/15/2024 age by LMP 36 weeks 5 days, AUGUST 07/20/2024 US/OB Limited With Biometrics IMPRESSION: Single live intrauterine with biometrics as above. * FL/HC 19.92 %, range 20.00- 24.00%, 36 weeks 5 days * Reading Location: [id number]
== END | disposition home or self-care (01) ==
LOC: US 16:26
PROVIDERS: Referring Provider Obstetrics & Gynecology; Visit Provider Obstetrics & Gynecology
DX: O99.213 Obesity complicating pregnancy, third trimester (principal); Z3A.36 36 weeks gestation of pregnancy
CPT/HCPCS: 76816; 76819

== ENCOUNTER → 2024-07-03 | Outpatient (CLI) | payer BC, SELFPAY ==
--- NOTE | 2024-07-03 12:13 | US_ITS ---
PROCEDURE: BIOPHYSICAL PROF W/O NON STRES 07/03/2024 REASON FOR EXAM: WELL BEING TECHNIQUE: High resolution obstetric ultrasound performed using a 2D transducer. Standard views obtained, including biometry, anatomy survey, and Doppler studies. COMPARISON: 06/27/2024. FINDINGS Single, live intrauterine gestation. Cephalic presentation. heart rate 139 beats per minute. Estimated age by LMP 37 weeks and 4 days with an estimated delivery date on 07/20/2024. Estimated age by previous ultrasound 38 weeks and 2 days with an estimated delivery date on 07/15/2024. Amniotic fluid index 17.7 cm. Largest amniotic fluid pocket 5.9 x 9.8 cm. Anterior placenta which is not low lying. Placenta grade 2. Biophysical profile : Breathing movements 2/2. Gross body movements 2/2. tone 2/2. Amniotic fluid volume 2/2. Biophysical profile score 8/8. US/Biophysical Prof W/O Non Stres IMPRESSION: Single, live intrauterine gestation. Biophysical profile score 8/8, normal values. Reading Location: [place] [id number]
== END | disposition home or self-care (01) ==
PROVIDERS: Referring Provider Obstetrics & Gynecology; Visit Provider Obstetrics & Gynecology
DX: O99.213 Obesity complicating pregnancy, third trimester (principal); Z3A.37 37 weeks gestation of pregnancy
CPT/HCPCS: 76819

== ENCOUNTER → 2024-07-10 | Outpatient (CLI) | payer BC, SELFPAY ==
--- NOTE | 2024-07-10 12:26 | US_ITS ---
PROCEDURE: BIOPHYSICAL PROF W/O NON STRES 07/10/2024 REASON FOR EXAM: WELL BEING TECHNIQUE: Biophysical profile was performed. COMPARISON: Comparison is made with prior study dated July 03, 2024. FINDINGS position: Cephalic heart rate: 150 beats per minute Amniotic fluid: Normal. Largest fluid pocket: 9.4 cm x 6.1 cm. Amniotic fluid index: 24 cm. Placenta location: Anterior and not low-lying. Placental grade: 2 Biophysical profile: Breathing movements: 2 Gross body movements: 2 tone: 2 Amniotic fluid volume: 2 Total score: 8/8 US/Biophysical Prof W/O Non Stres IMPRESSION: Normal biophysical profile. Reading Location: [facility]
== END | disposition home or self-care (01) ==
PROVIDERS: Referring Provider Obstetrics & Gynecology; Visit Provider Obstetrics & Gynecology
DX: O99.213 Obesity complicating pregnancy, third trimester (principal); Z3A.38 38 weeks gestation of pregnancy
CPT/HCPCS: 76819

== ENCOUNTER 2024-07-13 07:11 | Inpatient (IN) | payer BC, SELFPAY ==
[2024-07-13] VITALS (63 sets, daily range): BP systolic 111–144; BP diastolic 57–87; PULSE 72–180; RESP 15–20; TEMP 36.1–37.4; O2SAT 82–100; BMI 47.7
--- NOTE | 2024-07-13 08:21 | HP.PCM.OB_ITS ---
HPI - General General Date of Admission: 07/13/24 HPI Narrative YUSRA FUENTES, is a 29 F who presents for IOL secondary to GDM controlle don metformin, also has had unstable lie. no vb lof admits good fm Maternal Data Information AUGUST Calculator Estimated Delivery Date Method Current WG Current Estimate 07/20/24 LMP (Certain) 39w 0d PFSH PFSH Medical History (Updated 07/13/24 @ 08:[address] Stephanie Mtz MD) Gestational diabetes History of pulmonary embolism Depression Psoriasis Seasonal allergies 39 weeks gestation of Home Medications ?Medication ?Instructions ?Recorded ?Last Taken ?Type vits,calcium no.78-iron 1 tab PO DAILY pregna ncy 04/18/15 07/12/24 History fumarate-folic acid 29 mg-1 mg tablet (Prenatabs FA) aspirin 81 mg tablet,delayed 81 mg PO QDAY 1 03/26/23 07/12/24 History release (Adult Low Dose Aspirin) docusate sodium 100 mg capsule 200 mg PO QDAY PRN cons tipation 01/25/24 07/12/24 History (Colace) blood sugar diagnostic (Blood #120 ea 04/25/24 Unknown Rx Glucose Test strips) blood-glucose meter #1 ea 04/25/24 Unknown Rx lancets #200 ea 04/25/24 Unknown Rx metformin 500 mg tablet 500 mg PO QHS #30 tabs 06/12/24 07/12/24 Rx Allergy/AdvReac Type Severity Reaction Status Date / Time mushroom Allergy Swelling Verified 07/13/24 07:29 Family History Mother Heart disease Hypothyroidism Grandmother , great-grandma Breast cancer Social History adopted: No household members: spouse and children number of children: 2 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 current occupational exposures/hazards: No pets and animals: Yes (Not taking care litter box) pets and animals: cat(s) history of recent travel: Yes ([place] in Nov 2023) out of state: Yes out of country: No sexually active: Yes Smoking Status: Former smoker alcohol intake: never substance use type: does not use diet: other well-balanced diet: daily or most days caffeine: Yes eating out: 1-3 times/week during the past year weight has: other details: Lost 30lbs on [place], has gain about 15lbs back what type of physical activity do you participate in: walking frequency: 3-4 times per week duration: < 15 minutes/day angela/quaker: None seatbelt use: always do you feel safe at home: Yes additional 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 Date Name GA/Weeks Outcome Route Bth Weight Infant Gen Labor Lgth Anesthesia Del Locatn Provider FOB Unknown Chemical - 2018 04/06/15 [place] 38 live - full term 8lbs 14oz Male 36 epidural [facility] Svetlana Itz 01/12/19 [place] 39 live - full term 9lbs 4oz [facility] Delivery Date: 04/06/15 Last Updated by: Sujey Hong RN Gained 60lbs, Induced d/t early pre-e Delivery Date: 01/12/19 Last Updated by: Sujey Hong RN Induction d/t size Visit Details Expected Delivery Route/Plan Labor Preferences- CB/BF classes: [] labor support person: [] labor intervention preferences: [] pain management options preferred: [] cut cord/dad catch: [] : [] PP control planned: [] discussed possible routes of delivery and associated risks: [] special requests: [] Plans Covid status: [] Flu vaccine: [] Tdap vaccine: [] Rhogam: [] LARC form signed: [] Problem list reviewed and updated with the most current plan of care details and appropriate orders placed. Relevant counseling for the gestational age provided. Continue routine care and follow up unless otherwise noted in visit notes/problem list details OB Flowsheet Initial Weight: 245 lb Date -?-?-?-?-?-?-?-?-?-?-?-?- EGA Weight BP Urine Prot -?-?-?-?-?-?-?-?-?-?-?-?- Glucose FHR FuHt Pres Dilation -?-?--?-?-?-?-?-?-?-?-?-?- Effaced St Visit Note 12/30/23 -?-?-?-?-?-?-?-?-?-?-?-?- 11w 0d 245 lb 2 oz (+2 oz) 127/77 -?-?-?-?-?-?-?-?-?-?-?-?- 160 -?-?-?-?-?-?-?-?-?-?-?-?- KW- CRL cons wit h dates. accepts nipt. discussed hx PE with SM. plan to start lovenox 40 and hem consult KW- CRL cons with dates. acc epts nipt. discussed hx PE with SM. plan to start lovenox 40 and hem consult. plan asa at 12 weeks 01/24/24 -?-?-?-?-?-?-?-?-?-?-?-?- 14w 4d 243 lb (-2 lb) 122/82 Negative -?-?-?-?-?-?-?-?-?-?-?-?- Negative 160 -?-?-?-?-?-?-?-?-?-?-?-?- SM- no vb crmapi ng, respiratory symptoms has cold disuscsced now clinic eval if needed 02/28/24 -?-?-?-?-?-?-?-?-?-?-?-?- 19w 4d 253 lb 8 oz (+8 lb 8 oz) 139/84 Negative -?-?-?-?-?-?-?-?-?-?-?-?- Negative 152 -?-?-?-?-?-?-?-?-?-?-?-?- MH-NO VB. ?flutt ers. Nausea persists but vomiting improved. No anatomy US scheduled. Reordered. 03/20/24 -?-?-?-?-?-?-?-?-?-?-?-?- 22w 4d 260 lb 4 oz (+15 lb 4 oz) 122/70 Negative -?-?-?-?-?-?-?-?-?-?-?-?- Negative 145 -?-?-?-?-?-?-?-?-?-?-?-?- JV- anatomy scan reviewed and is normal. no complaints today other than gas. recommend gas-x. 04/17/24 -?-?-?-?-?-?-?-?-?-?-?-?- 26w 4d 264 lb 8 oz (+19 lb 8 oz) 126/79 Trace -?-?-?-?-?-?-?-?-?-?-?-?- Negative 140 28 -?-?-?-?-?-?-?-?-?-?-?-?- SM- no vb lof go od fm no regular ctx co pubic symphyses pain 05/15/24 -?-?-?-?-?-?-?-?-?-?-?-?- 30w 4d Negative -?-?-?-?-?-?-?-?-?-?-?-?- Negative 135 32 -?-?-?-?-?-?-?-?-?-?-?-?- KW- no vb/lof/ct x. good fm. Will get breast pump on WP when goes into labor. BS reviewed and WNL. Tdap and LARC today. 32 and 36 week US scheduled-desires BTO 6 weeks PP 05/29/24 -?-?-?-?-?-?-?-?-?-?-?-?- 32w 4d 267 lb (+22 lb) 138/85 Negative -?-?-?-?-?-?-?-?-?-?-?-?- Negative 145 34 -?-?-?-?-?-?-?-?-?-?-?-?- KW- no vb/lof/ct x. good fm. will send in BS numbers for review. KW- no vb/lof/ctx. good fm. will send in BS numbers for review.US reviewed and Tdap today 06/12/24 -?-?-?-?-?-?-?-?-?-?-?-?- 34w 4d 271 lb 6 oz (+26 lb 6 oz) 123/68 -?-?-?-?-?-?-?-?-?-?-?-?- 165 35 -?-?-?-?-?-?-?-?-?-?-?-?- JV- had 4 elevat ed fastings this week. starting metformin and adding on NSTs weekly 06/23/24 -?-?-?-?-?-?-?-?-?-?-?-?- 36w 1d 273 lb (+28 lb) 134/79 Negative -?-?-?-?-?-?-?-?-?-?-?-?- Negative 130 -?-?--?-?-?-?-?-?-?-?-?-?- KW- no vb/lof/ct x. good fm. Breech on last BPP and if still breech on (BPP/Growth) would like 37 week ECV. NST reactive. GBS today. BS doing ok. 05/28 elevated. will reassess next week. forgot to take metformin twice during the last 2 weeks. 06/30/24 -?-?-?-?-?-?-?-?-?-?-?-?- 37w 1d 274 lb 8 oz (+29 lb 8 oz) 132/83 -?-?-?-?-?-?-?-?-?-?-?-?- 140 Cephalic 1 -?-?-?-?-?-?-?-?-?-?-?-?- 50 -4 JV- cephal ic today. nst reactive. increasing metformin to 1000 hs. Plan 39 week IOL 07/07/24 -?-?-?-?-?-?-?-?-?-?-?-?- 38w 1d 276 lb 6 oz (+31 lb 6 oz) 128/79 Negative -?-?-?-?-?-?-?-?-?-?-?-?- Negative 130 -?-?-?-?-?-?-?-?-?-?-?-?- HALEY- BS eamon lerma. plan IOL 39 weeks NST FHR Rate Baby A Baseline: 130 Variability:: Moderate Accelerations:: 15 x 15 Decelerations:: None NST Reactive:: Yes FHR Category:: Category I Uterine Activity:: irregular ROS Constitutional Constitutional: Reports systems reviewed and no addt'l complaints, except as documented Eyes Eyes: Denies change in vision ENT HEENT: Reports systems reviewed and no addt'l complaints, except as documented; Denies headache(s) Cardiovascular Cardiovascular: Reports systems reviewed and no addt'l complaints, except as documented; Denies chest pain or dyspnea Respiratory/Chest Respiratory/Chest: Reports systems reviewed and no addt'l complaints, except as documented Gastrointestinal Gastrointestinal: Reports systems reviewed and no addt'l complaints, except as documented; Denies abdominal pain Genitourinary Genitourinary: Reports systems reviewed and no addt'l complaints, except as documented, contractions Details: present (irregular) and movement Details: present; Denies dysuria or genital lesions Musculoskeletal Musculoskeletal: Reports systems reviewed and no addt'l complaints, except as documented Neurologic Neurologic: Reports systems reviewed and no addt'l complaints, except as docu mented Endocrine Endocrinology: Reports systems reviewed and no addt'l complaints, except as documented Vital Signs Vital Signs Vital Signs: 07/13/24 07:25 07/13/24 07:25 07/13/24 07:25 Temperature Temperature Source Temporal Pulse Rate 97 Respiratory Rate Blood Pressure 130/79 H BP Systolic 130 BP Diastolic 79 07/13/24 07:25 07/13/24 07:25 Temperature 97.0 F L Temperature Source Pulse Rate Respiratory Rate 16 Blood Pressure BP Systolic BP Diastolic Weight Weight: 278 lb Body Mass Index (BMI) 47.7 Physical Exam Const alert, oriented x3, no apparent distress and healthy appearing HEENT normocephalic and moist oral mucous membranes Head and Scalp: atraumatic Neck full ROM, no lymphadenopathy, supple and thyroid normal General: trachea midline Lymph Lymphatic: no lymphadenopathy noted Chest inspection of chest normal Resp normal respiratory effort Cardio regular rate GI soft to palpation and non-tender GI Narrative: gravid Inspection: gravid external exam normal Manual OB Exam: estimated gestational size appropriate, presentation cephalic, dilated, effaced and station Extremity normal to inspection General Extremity: Negative for edema Skin no rashes or lesions noted Neuro no focal motor deficits and deep tendon reflexes 2+ bilaterally Motor Exam: strength 5/5 throughout and clonus absent Psych mental status grossly normal Labs Labs Labs: Blood Type AB POSITIVE Antibody Screen NEGATIVE Hct 38.5 % (37-47) Hgb 12.6 g/dL (12.0-15.0) Obstetrics Ultrasound Syphilis Total Ab Non-reactive VZV IgG Antibody 231 index (Immune >165) Rubella IgG Antibody Reactive (Nonreactive) Hep Bs Antigen Non-Reactive (Nonreactive) Hepatitis C Antibody Non-Reactive (Nonreactive) Hepatitis C Ab (EIA) <0.1 s/co ratio (0.0-0.9) Chlamydia DNA (EARL) Negative (Negative) N.gonorrhoeae DNA (EARL) Negative (Negative) HIV 1&2 Antibody Non-Reactive (Nonreactive) Glucose 1 Hr 50 gm 151 mg/dL (70-140) H Gest Glucose Tolerance MG/DL Group B Strep DNA Negative (Negative) Rhogam given: No Miscellaneous Test Assessment & Plan (1) Gestational diabetes: COMMENT: metformin (2) Abnormal glucose level: COMMENT: 3 HR GTT-failed. (3) 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, antepartum: COMMENT: Pt has not had any clotting event that requires anticoagulation during this . She had a suboptimal management for PE so I do not think she had PE. daily ASA, lovenox X 6 wk pp If c section (4) Obesity affecting : QUALIFIERS: Trimester: second trimester Obesity type affecting : unspecified obesity Qualified Code(s): O99.212 - Obesity complicating , second trimester COMMENT: HgB A1C ordered, growth US 32, 36 weeks, bpp weely 34 weeks on (5) Request for sterilization: COMMENT: After this (6) Former smoker: COMMENT: Stopped 2 years ago (7) Supervision of high-risk : QUALIFIERS: Trimester: second trimester Qualified Code(s): O09.92 - Supervision of high risk , unspecified, second trimester COMMENT: PRR, , AUGUST 07/20/24, PC: Jillian, : Itz (8) : QUALIFIERS: Weeks of gestation: 38 weeks Qualified Code(s): Z3A.38 - 38 weeks gestation of COMMENT: GBS neg, Carrier neg. , NIPT low risk. Nl anatomy (9) H/O pre-eclampsia in prior , currently : COMMENT: with first , Pre-e baseline labs ordered-asa at 12 weeks (10) Ovarian cyst: QUALIFIERS: Laterality: unspecified laterality Qualified Code(s): N83.209 - Unspecified ovarian cyst, unspecified side COMMENT: on L ovary + Fibroids (11) Anxiety and depression: (12) High cholesterol: COMMENT: Stopped Statin in October - controlling with diet & exercise (13) Seasonal allergies: (14) Encounter for induction of labor: PLAN: Plan Patient presents IOL, plan management for with [pitocin/AROM]. Pain management: [plans epidural]. GBS [negative]. Management of any complications: [none] I have reviewed the [facility] and made any clinically relevant updates.
[2024-07-13] MEDS: Lactated Ringers 1,000 ML 50 ML IV (08:30)
[2024-07-13] MEDS: 0.9% Normal Saline Single 100 ML IV.SOLN. INTRA-UTER (08:40)
[2024-07-13 08:46] LABS: Bedside Glucose 84 mg/dL (74-106)
[2024-07-13 09:23] LABS: Syphilis Antibodies Nonreactive (Nonreactive)
[2024-07-13] MEDS: Oxytocin 15 Units/NS 250ml 15 UNITS/250 ML IV.SOLN 2 UNITS IV (09:30)
[2024-07-13 09:57] LABS: Absolute Lymphocyte Count 1.34 X10^3/uL (0.83-4.51); Absolute Neutrophil Count 5.4 X10^3/uL (2.0-7.7); Basophil# 0.02 X10^3/uL; Basophil% 0.3 % (0-1); Eosinophils% 1.3 % (0-5); Hematocrit 37.5 % (37-47); Hemoglobin 12.5 g/dL (12.0-15.0); Lymphocyte # 1.34 X10^3/ul (0.83-4.51); Lymphocyte % 17.6 % (19-41); Mean Corp Hgb Conc 33.3 g/dL (32-36); Mean Corpuscular Hgb 28.9 pg (27.0-32.0); Mean Corpuscular Volume 86.8 fL (81-99); Mean Platelet Vol. 12.2 fl (6.2-12.0); Monocyte# 0.74 X10^3/uL; Monocyte% 9.7 % (0-10); NRBC Flagged by Analyzer 0 % (0-5); Neutrophil # 5.39 X10^3/uL (2.7-7.7); Neutrophil % 70.6 % (47-70); POSITIVE COUNT YES; RBC Distribution Width CV 12.9 % (11.6-14.6); RBC Distribution Width SD 40.3 fl (35.1-43.9); Red Blood Count 4.32 M/mm3 (4.2-5.4); White Blood Count 7.6 K/mm3 (4.4-11.0)
[2024-07-13 10:02] LABS: Bedside Glucose 88 mg/dL (74-106)
[2024-07-13 10:04] LABS: Differential Indicated SCAN CRITERIA MET
[2024-07-13 10:05] LABS: Platelet Estimate ADEQUATE (ADEQ)
[2024-07-13 10:39] LABS: Absolute Neutrophil Count 6.1 X10^3/uL (2.0-7.7); Basophil# 0.02 X10^3/uL; Basophil% 0.2 % (0-1); Eosinophil# 0.09 X10^3/uL; Eosinophils% 1.1 % (0-5); Hemoglobin 14.3 g/dL (12.0-15.0); Lymphocyte % 17.8 % (19-41); Mean Corp Hgb Conc 33.3 g/dL (32-36); Mean Corpuscular Hgb 28.9 pg (27.0-32.0); Mean Platelet Vol. 11.1 fl (6.2-12.0); Monocyte# 0.71 X10^3/uL; Monocyte% 8.4 % (0-10); NRBC Flagged by Analyzer 0 % (0-5); Neutrophil # 6.05 X10^3/uL (2.7-7.7); Platelet Count 276 K/mm3 (150-450); RBC Distribution Width SD 40.8 fl (35.1-43.9); Red Blood Count 4.94 M/mm3 (4.2-5.4); White Blood Count 8.4 K/mm3 (4.4-11.0)
[2024-07-13] MEDS: Lactated Ringers 1,000 ML 999 ML IV (12:10)
[2024-07-13] MEDS: fentaNYL-bupivacaine (epidural) 100 ML BAG EPIDURAL ×2 (13:34→16:56)
[2024-07-13 14:53] LABS: Bedside Glucose 80 mg/dL (74-106)
[2024-07-13 14:53] LABS: Bedside Glucose 81 mg/dL (74-106)
[2024-07-13 16:20] LABS: Bedside Glucose 64 mg/dL (74-106)
[2024-07-13 16:20] LABS: Bedside Glucose 107 mg/dL (74-106)
[2024-07-13] MEDS: Lactated Ringers 1,000 ML 200 ML IV (16:56)
[2024-07-13 17:03] LABS: Bedside Glucose 76 mg/dL (74-106)
[2024-07-13 18:10] LABS: Bedside Glucose 93 mg/dL (74-106)
[2024-07-13 19:00] LABS: Bedside Glucose 70 mg/dL (74-106)
[2024-07-13 20:11] LABS: Bedside Glucose 71 mg/dL (74-106)
--- NOTE | 2024-07-13 21:25 | EX.PCM.OBVAG ---
Assessment & Plan (1) Encounter for induction of labor: (2) Gestational diabetes: COMMENT: metformin (3) Abnormal glucose level: COMMENT: 3 HR GTT-failed. 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 She had a suboptimal management for PE so I do not think she had PE. daily ASA, lovenox X 6 wk pp If c section (5) Obesity affecting : QUALIFIERS: Trimester: second trimester Obesity type affecting : unspecified obesity Qualified Code(s): O99.212 - Obesity complicating , second trimester COMMENT: HgB A1C ordered, growth US 32, 36 weeks, bpp weely 34 weeks on (6) Request for sterilization: COMMENT: After this (7) Former smoker: COMMENT: Stopped 2 years ago (8) Supervision of high-risk : QUALIFIERS: Trimester: second trimester Qualified Code(s): O09.92 - Supervision of high risk , unspecified, second trimester COMMENT: PRR, , AUGUST 07/20/24, PC: Jillian, : Itz (9) : QUALIFIERS: Weeks of gestation: 38 weeks Qualified Code(s): Z3A.38 - 38 weeks gestation of COMMENT: GBS neg, Carrier neg. , NIPT low risk. Nl anatomy (10) H/O pre-eclampsia in prior , currently : COMMENT: with first , Pre-e baseline labs ordered-asa at 12 weeks (11) Vaginal delivery: COMMENT: SM IOL GDM girl Sarmiento Maternal Data Information AUGUST Calculator Estimated Delivery Date Method Current WG Current Estimate 07/20/24 LMP (Certain) 39w 0d Vaginal Delivery Maternal Presentation Maternal Presentation: see assessment and plan Vaginal Delivery Information Procedure Performed: Spontaneous Vaginal Delivery Surgeon/Practitioner: Stephanie Mtz Pre-Procedure Diagnosis: see assessment and plan Post-Procedure Diagnosis: same Type of anesthesia: Epidural Estimated Blood Loss: 200 Findings Description of procedure: Patient began pushing and delivered the head in the BIA presentation. The head was delivered atraumatically . The anterior and posterior shoulders delivered without complication followed by the rest of the and the infant was placed on the maternal abdomen. Delayed cord clamping was employed for approximately 60 seconds. Cord was clamped and cut and gentle traction was applied to the cord and the placenta delivered spontaneously immediately following it was noted to be intact with three-vessel cord. The perineum and vagina were inspected and noted to have no laceration. EBL was 200. Patient and tolerated delivery well. 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
--- NOTE | 2024-07-13 21:27 | PCM.DC ---
Discharge Instructions Diet Discharge Diet: No restrictions DC O2, CPAP, BIPAP needs Home O2 Discharge instructions: No Dressing / Incision Discharge Activity: Return to Normal Activity, May Not Drive (while taking narcotic pain medications.) and May Shower May resume sexual activity in: 4-6 weeks Dressing / Incision Call your doctor if your incision/area has: Continuous Slow Oozing, Sudden Increased Bleeding, Increased Pain/ Swelling, Increased Redness and Foul Smelling Discharge Follow Up Care Please Follow Up With: Stephanie Mtz MD When: Call [phone] to make an appointment with your doctor in 6 weeks. If you had elevated blood pressure or 4th degree laceration, you will need to be seen in 2 weeks. Test Results: Test results from this visit will be discussed in further detail at your follow-up appointment, if applicable. Discharge Plan Admission Admit Date/Time: 07/13/24 06:50 Attending Provider: Stephanie Mtz Primary Care Provider: Nancy Hill Discharge Orders/Prescriptions Prescriptions: No Action metformin 500 mg tablet 500 mg PO QHS Qty: 30 6RF aspirin [Adult Low Dose Aspirin] 81 mg tablet,delayed release (DR/EC) 81 mg PO QDAY docusate sodium [Colace] 100 mg capsule 200 mg PO QDAY PRN (Reason: constipation) Prenatabs FA 1 TABLET tablet 1 tab PO DAILY (DME) Blood Glucose Test Strip See Rx Instructions .MEDSUPPLY Qty: 120 5RF Rx Instructions: As directed-fasting & 2 hr post meals (DME) blood-glucose meter Misc See Rx Instructions .MEDSUPPLY Qty: 1 0RF Rx Instructions: As directed- Test fasting and 2 hours after meals (DME) lancets Misc See Rx Instructions .MEDSUPPLY Qty: 200 5RF Rx Instructions: As directed-fasting & 2 hr post meals Referrals / Follow Up: Nancy Hill, [employer] [Primary Care Provider] - Disposition Disposition (needs filled in before D/C Order can be placed): Home, Self Care
[2024-07-13] MEDS: Oxytocin 15 Units/NS 250ml 15 UNITS/250 ML IV.SOLN 83 UNITS IV (21:38)
[2024-07-13 22:20] LABS: Bedside Glucose 69 mg/dL (74-106)
[2024-07-13 22:27] LABS: Bedside Glucose 91 mg/dL (74-106)
[2024-07-14] VITALS (12 sets, daily range): BP systolic 130–136; BP diastolic 62–82; PULSE 68–98; RESP 15–16; TEMP 36.1–36.7; O2SAT 97–99
[2024-07-14] MEDS: Acetaminophen 500 MG Tablet 1000 MG PO (04:12)
--- NOTE | 2024-07-14 08:19 | PCM.PN.CNM ---
Subjective Subjective Patient doing well without complaints. Tolerating PO. Ambulating and voiding without difficulty. Feeding well. Denies chest pain, shortness of breath, calf pain/swelling, fevers, chills, lightheadedness. Objective Data Objective Data Vital Signs: Vital Signs Temp Pulse Resp BP Pulse Ox O2 Del Method 97.8 F 98 16 136/82 H 97 Room Air 07/14/24 03:48 07/14/24 03:48 07/14/24 03:48 07/14/24 03:48 07/14/24 03:48 07/14/24 03:48 Oxygen Delivery Method Room Air Weight: 278 lb Body Mass Index (BMI) 47.7 Intake & Output: Intake and Output for Last 24 Hours 07/12/24 07/13/24 07/14/24 23:59 23:59 23:59 Intake Total 3023.33 / 3023.33 250 / 250 Output Total 1300 / 1300 400 / 400 Balance 1723.33 / 1723.33 -150 / -150 Lab / Micro Data 07/13/24 10:30 Labs: Laboratory Results - last 24 hr 07/13/24 07:50: WBC 7.6, RBC 4.32, Hgb 12.5, Hct 37.5, MCV 86.8, MCH 28.9, MCHC 33.3, RDW Std Deviation 40.3, RDW Coeff of Xavi 12.9, Plt Count TNP, MPV 12.2 H, Immature Gran % (Auto) 0.500, Neut % (Auto) 70.6 H, Lymph % (Auto) 17.6 L, [place] % (Auto) 9.7, Eos % (Auto) 1.3, Baso % (Auto) 0.3, Absolute Neuts (auto) 5.4, Absolute Lymphs (auto) 1.34, Nucleated RBC % 0, Platelet Estimate ADEQUATE, Syphilis Total Ab Nonreactive, Blood Type AB POSITIVE, Antibody Screen NEGATIVE 07/13/24 08:28: POC Glucose 84 07/13/24 09:33: POC Glucose 88 07/13/24 10:30: WBC 8.4, RBC 4.94, Hgb 14.3, Hct 43.0, MCV 87.0, MCH 28.9, MCHC 33.3, RDW Std Deviation 40.8, RDW Coeff of Xavi 13.0, Plt Count 276, MPV 11.1, Immature Gran % (Auto) 0.500, Neut % (Auto) 72.0 H, Lymph % (Auto) 17.8 L, [place] % (Auto) 8.4, Eos % (Auto) 1.1, Baso % (Auto) 0.2, Absolute Neuts (auto) 6.1, Absolute Lymphs (auto) 1.50, Nucleated RBC % 0 07/13/24 13:12: POC Glucose 81 07/13/24 14:32: POC Glucose 80 07/13/24 15:37: POC Glucose 64 L 07/13/24 16:00: POC Glucose 107 H 07/13/24 16:44: POC Glucose 76 07/13/24 17:48: POC Glucose 93 07/13/24 18:40: POC Glucose 70 L 07/13/24 19:51: POC Glucose 71 L 07/13/24 20:43: POC Glucose 69 L 07/13/24 22:06: POC Glucose 91 Physical Exam Chest inspection of chest normal and inspection of breasts normal Resp normal respiratory effort and normal air movement GI normal to inspection, nondistended, normoactive bowel sounds Uterus Palpation: uterus fundus firm (below u) Extremity normal to inspection, full ROM and no calf tenderness Skin no rashes or lesions noted Psych mental status grossly normal Assessment & Plan (1) Vaginal delivery: COMMENT: SM IOL GDM girl Sarmiento PLAN: s/p PPD # 1 1. routine post delivery care 2. breast feeding- support given 3. rh positive 4. rubella immune 5. desires early d/c today if available
[2024-07-14] MEDS: Naproxen 500 MG Tablet PO (08:30)
[2024-07-14 09:32] LABS: Bedside Glucose 83 mg/dL (74-106)
== END 2024-07-14 21:43 | disposition home or self-care (01) | DRG 806 ==
PROVIDERS: Admitting Provider Obstetrics & Gynecology; Referring Provider Obstetrics & Gynecology; Visit Provider Obstetrics & Gynecology
DX: O24.415 Gestational diabetes mellitus in pregnancy, controlled by oral hypoglycemic drugs (principal); Z37.0 Single live birth; O99.12 Other diseases of the blood and blood-forming organs and certain disorders involving the immune mechanism complicating childbirth; D68.51 Activated protein C resistance; O99.214 Obesity complicating childbirth; E78.00 Pure hypercholesterolemia, unspecified; O99.284 Endocrine, nutritional and metabolic diseases complicating childbirth; O32.0XX0 Maternal care for unstable lie, not applicable or unspecified; Z30.2 Encounter for sterilization; Z3A.38 38 weeks gestation of pregnancy; Z79.82 Long term (current) use of aspirin; Z87.59 Personal history of other complications of pregnancy, childbirth and the puerperium; Z87.891 Personal history of nicotine dependence
CPT/HCPCS: 59025; 59050; 82962; 85025; 86780; 86850; 86900; 86901; 99221; G0378

== ENCOUNTER → 2024-08-24 | Outpatient (CLI) | payer BC, SELFPAY ==
--- OUTSIDE RECORDS SUMMARY | 2024-08-24 21:53 | XMS RPT_ITS | CCD ---
Author Organization [facility] Care Team Providers Care Rinkman Name Role Phone Dillan Reese Unavailable Unavailable No Doctor Assigned, Nodr Unavailable Unavail able Nancy Sam Primary Care Provider [phone] Nancy Sam Primary Care Provider Dillan Reese Unavailable Nancy Sam Unavailable Unavailable Kamlesh Meehan Unavailable Nancy Bassett Primary Care Provider RAFI Meehan Attending Unavailable Nancy Bassett Primary Care Provider Nancy Bassett Primary Care Provider Nancy Bassett Primary Care Provid er NANCY SAM Primary Care Unavailable KAMLESH MEEHAN Attending Unavailable Nancy Bassett Primary Care Provider NANCY SAM Referring Unavailable NANCY SAM Primary Care Unavailable NANCY SAM Attending Unavailable SELF, SELF Referring Unavailable NYDIA ZAZUETA Attending Unavailable NANCY SAM Primary Care Unavailable FANG, GWENDOLINE Attending Unavailable ARIADNA, GWENDOLINE Referring Unavailable NANCY SAM Primary Care Unavailable SELF, SELF Referring Unavailable NANCY SAM Primary Care Unavailable NANCY SAM Attending Unavailable NANCY SAM Primary Care Unavailable ROBYN YOUNG J Attending Unavailable Care Physician, No Primary Primary Care Provider Unavailable Care Physician, No Primary Referring Provider Un available Santa Quintero Attending Provider [place] [employer]IGN MARKETING MANAGER-C, Santa Referring Provider [phone] Nina Hathaway DO, Dr. Garg Attending Provider Bibi ROSENBERG, Dr. Brown Attending Provider [phone] Bibi ROSENBERG, Dr. Brown Referring Provider [phone] Sam CAMPAIGN MARKETING MANAGER-C, Nancy Primary Care Provider Unavai lazara Cespedes CNM, Lara Attending Provider [phone] Bibi ROSENBERG, Dr. Brown Other Provider [phone] Coy LAM, Lara Other Provider [phone] Care Physician, No Primary Primary Care Provider Unavailable [place] [employer]IGN MARKETING MANAGER-C, Santa Attending Provider Care Physician, No Primary Referring Provider Un available Sam CAMPAIGN MARKETING MANAGER-C, Nancy Referring Provider Unavailab megan LAM, Lara Referring Provider [phone] Care Physician, No Primary Primary Care Provider Unavailable [place] [employer]PAIGN MARKETING MANAGER-C, Santa Attending Provider [phone] Giovany CAMPAIGN MARKETING MANAGER-C, Santa Referring Provider [phone] Bibi ROSENBERG, Dr. Brown Admit Provider [phone] Jesse MCGILL, Delisa Attending Provider [phone] REFERRED, SELF Referring Unavailable LUCIANO SANTOS Attending Unavailable Sam, Nancy Primary Care Unavailable MarcalodonyStephanie Referring Unavailable MarcanthonyStephanie Attending Unavailable Sam, Nancy Primary Care Unavailable Lara Cespedes Attending Unavailable Lara Cespedes Referring Unavailable Care Physician, No Primary Referring Unava ilable Care Physician, No Primary Primary Care Unava ilable MarcanthonyStephanie Attending Unavailable Sam, Nancy Primary Care Unavailable Kyle Lizama Attending Unavailable Care Physician, No Primary Primary Care Unava ilable Lara Cespedes Attending Unavailable Lara Cespedes Referring Unavailable Sam, Nancy Primary Care Unavailable MarcanthonyStephanie Referring Unavailable MarcanthonyStephanie Attending Unavailable MarcanthonyStephanie Referring Unavailable Sam, Nancy Primary Care Unavailable Lara Cespedes Attending Unavailable Stephanie Mtz Consulting Unavailable Sam, Nancy Primary Care Unavailable Stephanie Mtz Admitting Unavailable MarcanthonyStephanie Referring Unavailable MarcanthonyStephanie Attending Unavailable Care Physician, No Primary Referring Unava ilable Care Physician, No Primary Primary Care Unava ilable Nina Hathaway, Britany Attending Unavailabl e Sam, Nancy Referring Unavailable Sam, Nancy Primary Care Unavailable Vande Velde, Britany Attending Unavailabl e Sam, Nancy Referring Unavailable Sam, Nancy Primary Care Unavailable Marcanthony, Stephanie Attending Unavailable Care Physician, No Primary Referring Unava ilable Care Physician, No Primary Primary Care Unava ilable Marcanthony, Stephanie Attending Unavailable Care Physician, No Primary Referring Unava ilable Care Physician, No Primary Primary Care Unava ilable [place] [employer]PA[employer] MARKETING MANAGER, Santa Attending Unavailable Marcanthony, Stephanie Referring Unavailable Sam, Nancy Primary Care Unavailable Marcanthony, Stephanie Attending Unavailable Marcanthony, Stephanie Referring Unavailable Sam, Nancy Primary Care Unavailable Marcanthony, Stephanie Attending Unavailable Sam, Nancy Primary Care Unavailable Giovany CAMPAIGN MARKETING MANAGER, Santa Attending Unavailable Giovany CAMPAIGN MARKETING MANAGER, Santa Referring Unavailable Marcanthony, Stephanie Referring Unavailable Care Physician, No Primary Primary Care Unava ilable Marcanthony, Stephanie Attending Unavailable Delisa Molina Attending Unavailable Sam, Nancy Primary Care Unavailable Marcanthony, Stephanie Admitting Unavailable Marcanthony, Stephanie Consulting Unavailable Marcanthony, Stephanie Referring Unavailable Marcanthony, Stephanie Attending Unavailable Sam, Nancy Primary Care Unavailable Lara Cespedes Attending Unavailable Marcanthony, Stephanie Consulting Unavailable Marcanthony, Stephanie Referring Unavailable Lara Cespedes Consulting Unavailable Care Physician, No Primary Referring Unava ilable Sam, Nancy Primary Care Unavailable Lara Cespedes Attending Unavailable Care Physician, No Primary Primary Care Unava ilable Marcus Guillermo Attending Unavailable Marcanthony, Stephanie Referring Unavailable Care Physician, No Primary Primary Care Unava ilable Giovany CAMPAIGN MARKETING MANAGER, Santa Attending Unavailable Giovany CAMPAIGN MARKETING MANAGER, Santa Referring Unavailable Sam, Nancy Referring Unavailable Sam, Nancy Primary Care Unavailable Lara Cespedes Attending Unavailable Care Physician, No Primary Referring Unava ilable Care Physician, No Primary Primary Care Unava ilable Lara Cespedes Attending Unavailable Care Physician, No Primary Referring Unava ilable Sam, Nancy Primary Care Unavailable Nina Hathaway, Britany Attending Unavailabl e Care Physician, No Primary Referring Unava ilable Sam, Nancy Primary Care Unavailable Lara Cespedes Attending Unavailable Care Physician, No Primary Primary Care Unava ilable Sujey Hong Attending Unavailable Sam, Nancy Referring Unavailable Sam, Nancy Primary Care Unavailable Stephanie Mtz Attending Unavailable Sam, Nancy Referring Unavailable Sam, Nancy Primary Care Unavailable Britany Davalos Attending Unavailabl e Sam, Nancy Primary Care Unavailable Stephanie Mtz Referring Unavailable Stephanie Mtz Attending Unavailable Allergies Allergy Classification Reported Allergen(s) Allergy Type Date of Onset Reaction(s) Facility (12 sources) Amoxicillin; Translations: [AMOXICILLIN] Drug Allergy 8 [facility] (14 sources) cultivated mushroom extract Drug Allergy 8 [facility] (2 sources) Amoxicillin / Clavulanate Drug Allergy Hives/Urticaria, [facility] (2 sources) Mushroom (edible) Hives/Urticaria, [facility] (5 sources) tetanus toxoid vaccine, inactivated Drug Allergy 8 [facility] (4 sources) Mushroom Propensity to adverse reactions to drug 8 [facility] (4 sources) Tetanus vaccine Propensity to adverse reactions to drug 8 [facility] (2 sources) Mushroom (edible); Translations: [MUSHROOM] Propensity to adverse reactions to food (disorder) 4 [facility] 2 Repository (4 sources) TETANUS TOXOID, ADSORBED; Translations: [TETANUS TOXOID, ADSORBED] Propensity to adverse reactions to drug (disorder) 4 Palpitations [facility] 2 Repository Medications Current Medications Medication Drug Class(es) Dates Sig (Normalized) Sig (Original) aspirin 81 mg delayed release oral tablet (14 sources) Platelet Aggregation Inhibitor, Nonsteroidal Anti-inflammatory Drug Start: 01-25-2024 Aspirin (Adult Low Dose Aspirin) 81 mg tablet,delayed release (DR/EC) Active 81 mg PO daily January 25, 2024 1:00am Start: 12-27-2018 End: 01-12-2019 take 81 mg by mouth once daily Aspirin Discontinued 81 mg PO DAILY December 27, 2018 12:00am January 12, 2019 8:56pm azithromycin 250 mg oral tablet (2 sources) Macrolide Antimicrobial Start: 06-01-2023 End: 06-06-2023 azithromycin (Zithromax) 250 mg tablet Indications: Eustachian tube dysfunction, left , Subacute rhinosinusitis Take 2 tablets (500 mg) on Day 1, followed by 1 tablet (250 mg) once daily on Days 2 through 5. 6 tablet 0 06/01/2023 06/06/2023 Active Start: 04-26-2022 End: 05-01-2022 Azithromycin (Zithromax Z-Pa k) 250 MG tablet Indications: Left acute otitis media , Acute upper respiratory infection Take 2 tablets (500 mg) on Day 1, then 1 tablet (250 mg) daily on Days 2-5 6 tablet 0 04/26/2022 05/01/2022 Active Blood-Glucose Meter misc (7 sources) Start: 04-25-2024 Blood-Glucose Meter misc Active 0 .MEDSUPPLY April 25, 2024 1:00am As directed- Test fasting and 2 hours after meals cefdinir 300 mg oral capsule (1 source) Cephalosporin Antibacterial Start: 11-27-2020 End: 12-03-2020 take 1 capsule by mouth twice daily cefdinir 300 mg oral capsule ; 1 cap(s) orally 2 times a day Quantity: 14 Refills: 0 Ordered: 27-Nov-2020 Kamlesh Meehan Start: 27-Nov-2020 End: 03-Dec-2020 Generic Substitution Allowed Comments: Finish all this medication unless otherwise directed by prescriber. Comment on above: Finish all this medi cation unless otherwise directed by prescriber. docusate sodium 100 mg oral capsule (9 sources) Start: 01-25-2024 take 2 capsules by mouth once daily as needed for constipation Docusate Sodium (Colace) 100 mg capsule Active 200 mg PO daily as needed for constipation January 25, 2024 1:00am Start: 01-25-2024 take 1 capsule by mo ut once daily as needed Docusate Sodium (Colace) 100 mg capsule Active 100 mg PO daily as needed January 25, 2024 1:00am Start: 11-26-2023 take 1 capsule by mo ut at bedtime Docusate 100 MG capsule Take 1 capsule by mouth at bedtime. 30 capsule 11/26/2023 Active Start: 11-26-2023 End: 11-26-2023 take 1 dose by mouth once 100 mg, Oral, ONCE, 1 dose, On Wed11/26/23 at 0300 fexofenadine hydrochloride 180 mg oral tablet (1 source) Histamine-1 Receptor Antagonist Start: 06-01-2023 End: 05-31-2024 take 1 tablet by mouth once daily fexofenadine (Dorota) 180 mg tablet Indications: Eustachian tube dysfunction, left , Subacute rhinosinusitis Take 1 tablet (180 mg) by mouth once daily. 30 tablet 0 06/01/2023 05/31/2024 Active fluticasone propionate 0.05 mg/actuat metered dose nasal spray (1 source) Corticosteroid Start: 03-19-2022 End: 04-02-2022 take 1 spray(s) nasal route once daily Flonase 50 mcg/inh nasal spray ; 1 spray(s) in each nostril once a day Quantity: 1 Refills: 0 Ordered: 19-Mar-2022 Kamlesh Meehan Start: 19-Mar-2022 End: 02-Apr-2022 Generic Substitution Allowed Comments: For the nose.It is very important that you take or use this exactly as directed. Do not skip doses or discontinue unless directed by your doctor. Comment on above: For the nose.It is v oren important that you take or use this exactly as directed. Do not skip doses or discontinue unless directed by your doctor. ipratropium bromide 0.042 mg/actuat metered dose nasal spray (1 source) Anticholinergic Start: 11-27-2020 End: 12-01-2020 ipratropium 42 mcg/inh (0.06%) nasal spray ; 2 spray(s) intranasally every 8 hours Quantity: 1 Refills: 0 Ordered: 27-Nov-2020 Kamlesh Meehan Start: 27-Nov-2020 End: 01-Dec-2020 Generic Substitution Allowed Comments: For the nose.It is very important that you take or use this exactly as directed. Do not skip doses or discontinue unless directed by your doctor. Comment on above: For the nose.It is v oren important that you take or use this exactly as directed. Do not skip doses or discontinue unless directed by your doctor. metFORMIN hydrochloride 500 mg oral tablet (6 sources) Biguanide Start: 06-12-2024 take 1 tablet by mouth at bedtime Metformin 500 mg tablet Active 500 mg PO AT BEDTIME June 12, 2024 12:00am PARAGARD INTRAUTERINE COPPER (2 sources) PARAGARD INTRAUTERINE COPPER 1 Device by Intrauterine route once. 0 Active predniSONE 10 mg oral tablet (1 source) Start: 03-19-2022 End: 03-25-2022 take 1 tablet by mouth once daily at mealtime predniSONE 10 mg oral tablet ; 3 tab(s) orally once a day in the morning with plenty of water for 7d Quantity: 21 Refills: 0 Ordered: 19-Mar-2022 Kamlesh Meehan Start: 19-Mar-2022 End: 25-Mar-2022 Generic Substitution Allowed Comments: It is very important that you take or use this exactly as directed. Do not skip doses or discontinue unless directed by your doctor.Obtain medical advice before taking any non-prescription drugs as some may affect the action of this medication.Take with food or milk. Comment on above: It is very important that you take or use this exactly as directed. Do not skip doses or discontinue unless directed by your doctor.Obtain medical advice before taking any non-prescription drugs as some may affect the action of this medication.Take with food or milk. Vit,[id number] ic (Prenatabs Fa) 1 TABLET tablet (7 sources) Start: 04-18-2015 take 1 tablet by mouth once daily Vit,[id number]-[id number]-Jgv ic (Prenatabs Fa) 1 TABLET tablet Active 1 {tbl} PO DAILY April 18, 2015 1:00am pseudoephedrine hydrochloride 30 mg oral tablet (1 source) alpha-Adrenergic Agonist Start: 06-01-2023 End: 05-31-2024 take 1 tablet by mouth every six hours for congestion pseudoephedrine (Sudafed) 30 mg tablet Indications: Eustachian tube dysfunction, left Take 1 tablet (30 mg) by mouth every 6 hours if needed for congestion. 30 tablet 0 06/01/2023 05/31/2024 Active rosuvastatin calcium 5 mg oral tablet (2 sources) HMG-CoA Reductase Inhibitor Start: 10-28-2023 take 1 tablet by mouth once daily Rosuvastatin 5 MG tablet Indications: Mixed hyperlipidemia Take 1 tablet by mouth daily. 90 tablet 10/28/2023 Active Start: 09-16-2023 take 1 tablet by baljinder once daily Rosuvastatin 5 MG tablet Indications: Mixed hyperlipidemia Take 1 tablet by mouth daily. 90 tablet 09/16/2023 Active Semaglutide-Weight Managemen t (Wegovy) 0.25 MG/0.5ML Solution Auto-injector (1 source) Start: 06-16-2021 Semaglutide-We ight Management (Wegovy) 0.25 MG/0.5ML Solution Auto-injector Indications: Adult BMI 40.0-44.9 kg/sq m Inject 0.25 mg under the skin once a week. 2 mL 0 06/16/2021 Active Semaglutide-Weight Managemen t (Wegovy) 1 MG/0.5ML Solution Auto-injector (1 source) Start: 09-13-2021 End: 10-11-2021 Semaglutide-Weight Managemen t (Wegovy) 1 MG/0.5ML Solution Auto-injector Indications: Adult BMI 40.0-44.9 kg/sq m Inject 1 mg under the skin once a week. 2 mL 0 09/13/2021 10/11/2021 Active Semaglutide-Weight Managemen t (Wegovy) 1.7 MG/0.75ML Solution Auto-injector (3 sources) Start: 11-28-2021 End: 12-26-2021 Semaglutide-Weight Managemen t (Wegovy) 1.7 MG/0.75ML Solution Auto-injector Indications: Adult BMI 40.0-44.9 kg/sq m Inject 1.7 mg under the skin once a week. 3 mL 0 11/28/2021 12/26/2021 Active Start: 11-10-2021 End: 11-28-2021 Semaglutide-Weight Managemen t (Wegovy) 1.7 MG/0.75ML Solution Auto-injector Indications: Adult BMI 40.0-44.9 kg/sq m Inject 1.7 mg under the skin once a week. 3 mL 0 11/10/2021 11/28/2021 Discontinued (Reorder) Start: 10-11-2021 End: 11-08-2021 Semaglutide-Weight Managemen t (Wegovy) 1.7 MG/0.75ML Solution Auto-injector Indications: Adult BMI 40.0-44.9 kg/sq m Inject 1.7 mg under the skin once a week. 3 mL 0 10/11/2021 11/08/2021 Active Wegovy (2.4 mg dose) subcuta neous solution (1 source) Wegovy (2.4 mg d ose) subcutaneous solution Quantity: 0 Refills: 0 Ordered: 19-Mar-2022 Mariluz Han Generic Substitution Allowed Completed/Discontinued Medications Medication Drug Class(es) Dates Sig (Normalized) Sig (Original) acetaminophen 325 mg oral tablet (1 source) Start: 11-25-2023 End: 11-25-2023 take 1 dose by mouth once 650 mg, Oral, ONCE, 1 dose, On Celia 11/25/23 at 2230 amoxicillin 500 mg oral capsule (1 source) Penicillin-class Antibacterial Start: 06-01-2023 End: 06-01-2023 take 1 capsule by mouth twice daily amoxicillin (Amoxil) 500 mg capsule Indications: Eustachian tube dysfunction, left , Subacute rhinosinusitis Take 1 capsule (500 mg) by mouth 2 times a day for 10 days. 20 capsule 0 06/01/2023 06/01/2023 Discontinued (Allergic response) 24 hr buPROPion hydrochloride 150 mg extended release oral tablet (19 sources) Aminoketone Start: 10-18-2023 End: 01-25-2024 take 1 tablet by mouth once daily in the morning Bupropion Hcl (Wellbutrin Xl) 150 mg tablet extended release 24 hr Discontinued 150 mg PO EVERY MORNING December 17, 2023 12:00am December 30, 2023 9:44am Start: 09-13-2023 End: 10-18-2023 take 1 tablet by mouth twice daily buPROPion 75 MG tablet Indications: Depression, unspecified depression type , Anxiety disorder, unspecified type Take 1 tablet by mouth 2 times daily. 60 tablet 09/13/2023 10/18/2023 Discontinued clobetasol propionate 0.5 mg/ml topical cream (4 sources) Corticosteroid Start: 06-16-2021 End: 09-08-2021 clobetasol 0.05 % Cream Indications: Eczema, unspecified type Apply thin layer twice daily as directed x 14 days, may repeat with each flare up. 30 g 1 06/16/2021 09/08/2021 Discontinued (Patient Preference) Start: 09-09-2017 clobetasol 0.0 5 % Cream Indications: Generalized psoriasis Apply thin layer twice daily as directed 1 Tube 1 09/09/2017 Active copper 313 mg drug implant (6 sources) Copper-containing Intrauterine Device PARAGARD INTRAUTERINE COPPER 1 Each by Intrauterine route once. 09/13/2023 Discontinued diclofenac sodium 75 mg delayed release oral tablet (2 sources) Nonsteroidal Anti-inflammatory Drug Start : 06-16 End: 09-08 take 1 tablet by mouth twice daily diclofenac EC [address] tablet Indications: Acute right-sided low back pain, unspecified whether sciatica present Take 1 tablet by mouth 2 times daily. 60 tablet 0 06/16/2021 09/08/2021 Discontinued (Therapy completed) Enoxaparin (Lovenox) 40 mg/0.4 mL syringe (7 sources) Start : 12-29 End: 02-27 Enoxaparin (Lovenox) 40 mg/0.4 mL syringe Discontinued 40 mg SC daily December 30, 2023 12:00am February 28, 2024 12:45pm escitalopram 20 mg oral tablet (1 source) Serotonin Reuptake Inhibitor Start : 12-27 End: 06-24 take 1 tablet by mouth once daily escitalopram 20 MG Tab tablet Indications: Mood disorder of depressed type Take 1 tablet by mouth daily. 90 tablet 1 12/27/2017 06/24/2018 Discontinued 12 hr guaiFENesin 600 mg extended release oral tablet (7 sources) Start : 01-24 End: 02-27 take 1 tablet by mouth every twelve hours as needed, then take 1 tablet by mouth every twelve hours as needed Guaifenesin (Mucinex) 600 mg tablet extended release 12hr Discontinued 600 mg PO Q12H as needed January 25, 2024 1:00am February 28, 2024 12:45pm ibuprofen 600 mg oral tablet (7 sources) Nonsteroidal Anti-inflammatory Drug Start : 01-12 End: 12-16 take 1 tablet by mouth three times daily as needed for pain Ibuprofen 600 MG tablet Discontinued 600 mg PO THREE TIMES A DAY as needed for Pain Or Fever January 12, 2019 8:55pm December 17, 2023 9:34am iohexol (OMNIPAQUE) 350 MG/ML injection 75 mL (1 source) Start : 11-25 End: 11-25 75 mL, Intravenous, ONCE, 1 dose, On Wed11/26/23 at 0215, Extravasation Risk, Radiology Procedure lisdexamfetamine dimesylate 70 mg oral capsule (1 source) Central Nervous System Stimulant Start : 05-15 End: 06-16 take 1 capsule by mouth once daily in the morning Lisdexamfetamine Dimesylate (Vyvanse) 70 MG capsule Indications: Binge eating Take 1 capsule by mouth daily every morning. 30 capsule 0 05/15/2021 06/16/2021 Discontinued (Ineffective) nitrofurantoin, macrocrystals 25 mg / nitrofurantoin, monohydrate 75 mg oral capsule (1 source) Nitrofuran Antibacterial Start : 04-24 End: 05-31 take 1 capsule by mouth every twelve hours nitrofurantoin, macrocrystal-monohyd rate, (Macrobid) 100 mg capsule Take 1 capsule by mouth every 12 hours for 5 days. 10 capsule 0 04/24/2023 06/01/2023 Discontinued (Med List Cleanup) Semaglutide-Weight Management (Wegovy) 0.5 MG/0.5ML Solution Auto-injector (1 source) Start : 08-12 End: 09-08 Semaglutide-Weight Management (Wegovy) 0.5 MG/0.5ML Solution Auto-injector Indications: Adult BMI 40.0-44.9 kg/sq m Inject 0.5 mg under the skin once a week. 4 mL 0 08/12/2021 09/08/2021 Discontinued (Dose adjustment (suppress cancel msg)) Semaglutide-Weight Management (Wegovy) 2.4 MG/0.75ML Solution Auto-injector (4 sources) Start : 05-22 End: 09-12 inject 2.4 mg by subcutaneous injection every week Semaglutide-Weight Management (Wegovy) 2.4 MG/0.75ML Solution Auto-injector Indications: BMI 36.0-36.9,adult Inject 2.4 mg under the skin once a week. 3 mL 2 05/22/2022 09/13/2023 Discontinued (Patient Preference) Start: 05-22-2022 inject 2.4 mg by sub cutaneous injection every week Semaglutide-Weight Management (Wegovy) 2.4 MG/0.75ML Solution Auto-injector Indications: BMI 36.0-36.9,adult Inject 2.4 mg under the skin once a week. 3 mL 2 05/22/2022 Active Start: 03-25-2022 inject 2.4 mg by sub cutaneous injection every week Semaglutide-Weight Management (Wegovy) 2.4 MG/0.75ML Solution Auto-injector Inject 2.4 mg under the skin once a week. 3 mL 2 03/25/2022 Active Start: 11-08-2021 End: 12-06-2021 Semaglutide-Weight Managemen t (Wegovy) 2.4 MG/0.75ML Solution Auto-injector Indications: Adult BMI 40.0-44.9 kg/sq m Inject 2.4 mg under the skin once a week. 30 mL 0 11/08/2021 12/06/2021 Active 250 ml sodium chloride 9 mg/ml injection (2 sources) Start: 11-25-2023 End: 11-26-2023 75 mL, Intravenous, ONCE, 1 dose, On Wed11/26/23 at 0215, Radiology Procedure tiZANidine 4 mg oral tablet (2 sources) Central alpha-2 Adrenergic Agonist Start: 06-16-2021 End: 09-08-2021 take 1 tablet by mouth three times daily tiZANidine 4 MG tablet Indications: Acute right-sided low back pain, unspecified whether sciatica present Take 1 tablet by mouth 3 times daily. 60 tablet 1 06/16/2021 09/08/2021 Discontinued (Therapy completed) 24 hr venlafaxine 75 mg extended release oral capsule (11 sources) Serotonin and Norepinephrine Reuptake Inhibitor Start: 05-22-2022 End: 09-13-2023 take 3 capsules by mouth once daily Venlafaxine 75 MG Cap SR 24HR capsule XR Indications: Anxiety , Depression, unspecified depression type Take 3 capsules by mouth daily. 270 capsule 1 05/22/2022 09/13/2023 Discontinued (Patient Preference) Start: 04-10-2021 End: 11-28-2021 take 1 capsule by mouth once daily venlafaxine 150 MG Cap SR 24HR capsule XR Indications: Anxiety , Depression, unspecified depression type Take 1 capsule by mouth daily. 90 capsule 0 11/28/2021 Active Effexor Quantity : 0 Refills: 0 Ordered: 27-Nov-2020 Marvin Pierre Generic Substitution Allowed Problems Active Problems Problem Classification Problem Date Documented Da te Episodic/Chronic Abdominal pain (3 sources) Lower abdominal pain; Translations: [Lower abdominal pain, unspecified] Onset: 11-25-2023 11-25-2023 Episodic Acute bronchitis (1 source) Acute bronchitis; Translations: [Acute bronchitis] 11-27-2020 Episodic Acute bronchitis (1 source) Acute bronchitis 11-27-2020 Allergic reactions (1 source) Eczema; Translations: [Dermatitis, unspecified] Episodic Anxiety disorders (20 sources) Anxiety; Translations: [Anxiety disorder, unspecified] Onset: 12-04-2019 Chronic Coagulation and hemorrhagic disorders (2 sources) Activated protein C resistance; Translations: [Activated protein C resistance] Onset: 06-30-2024 Chronic Contraceptive and procreative management (20 sources) Intrauterine contraceptive device in situ; Translations: [Presence of (intrauterine) contraceptive device] Onset: 02-25-2023 02-25-2023 Episodic Comment on above: After this Diabetes mellitus without complication (20 sources) Abnormal glucose level; Translations: [Other abnormal glucose] Onset: 06-30-2024 04-25-2024 Episodic Comment on above: 3 HR GTT-failed. Diabetes or abnormal glucose tolerance complicating ; childbirth; or the puerperium (20 sources) Gestational diabetes mellitus; Translations: [Gestational diabetes mellitus in , unspecified control] Onset: 07-07-2024 04-25-2024 Episodic Comment on above: nutrition consult, g lucose testing fasting & 2 hr PP metformin Disorders of lipid metabolism (20 sources) Raised low density lipoprotein cholesterol; Translations: [Pure hypercholesterolemia, unspecified] Onset: 06-07-2020 06-07-2020 Chronic Comment on above: Stopped Statin in [place] - controlling with diet & exercise Fever of unknown origin (3 sources) Fever; Translations: [Fever, unspecified] Onset: 11-25-2023 11-26-2023 Episodic Immunizations and screening for infectious disease (1 source) Encounter for immunization; Translations: [Encounter for immunization] Onset: 05-29-2024 Episodic Malaise and fatigue (6 sources) Fatigue; Translations: [Other fatigue] Onset: 09-13-2023 09-13-2023 Episodic Malposition; malpresentation (12 sources) Breech presentation; Translations: [Maternal care for breech presentation, not applicable or unspecified] Onset: 06-30-2024 06-23-2024 Episodic Comment on above: at last BPP. if stil l breech at 36 week US would like ECV. Mood disorders (13 sources) Depressive disorder; Translations: [Depression, unspecified depression type] Onset: 12-04-2019 Chronic Mood disorders (12 sources) Mood disorders; Translations: [Depression, unspecified] Onset: 06-16-2021 Resolved: 10-18-2023 06-16-2021 Other complications of (20 sources) Maternal obesity complicating , childbirth and the puerperium, antepartum; Translations: [Obesity complicating , unspecified trimester] 04-17-2024 Chronic Comment on above: HgB A1C ordered, ronal wth US 32, 36 weeks, bpp weely 34 weeks on Other complications of (2 sources) Obesity complicating , second trimester; Translations: [Obesity complicating , second trimester] Onset: 07-07-2024 Chronic Other complications of (1 source) Obesity complicating , third trimester; Translations: [Obesity complicating , third trimester] Onset: 07-13-2024 Chronic Other complications of (1 source) Obesity complicating , unspecified trimester; Translations: [Obesity complicating , unspecified trimester] Onset: 01-25-2024 Chronic Other complications of (20 sources) High risk ; Translations: [Supervision of high risk , unspecified, unspecified trimester] 02-28-2024 Episodic Comment on above: PRR, , AUGUST 07/20, PC: Jillian, : Itz Other complications of (20 sources) Heterozygous Factor V Leiden mutation; Translations: [Other diseases of the blood and blood-forming organs and certain disorders involving the immune mechanism complicating , first trimester] 02-28-2024 Episodic Comment on above: Pt has not had any c lotting event that requires anticoagulation during this .She had a suboptimal management for PE so I do not think she had PE.daily ASA, lovenox X 6 wk pp If c section Other complications of (20 sources) History of pre-eclampsia; Translations: [Supervision of with other poor reproductive or obstetric history, unspecified trimester] 12-30-2023 Episodic Comment on above: with first , Pre-e baseline labs ordered-asa at 12 weeks Other complications of (2 sources) Other diseases of the blood and blood-forming organs and certain disorders involving the immune mechanism complicating , first trimester; Translations: [Other diseases of the blood and blood-forming organs and certain disorders involving the immune mechanism complicating , first trimester] Onset: 06-30-2024 Episodic Other complications of (2 sources) Supervision of high risk , unspecified, second trimester; Translations: [Supervision of high risk , unspecified, second trimester] Onset: 06-30-2024 Episodic Other complications of (2 sources) Supervision of with other poor reproductive or obstetric history, unspecified trimester; Translations: [Supervision of with other poor reproductive or obstetric history, unspecified trimester] Onset: 06-30-2024 Episodic Other complications of (1 source) Other abnormal findings on screening of mother; Translations: [Other abnormal findings on screening of mother] Onset: 06-27-2024 Episodic Other gastrointestinal disorders (3 sources) Constipation; Translations: [Constipation, unspecified] Onset: 10-18-2023 10-18-2023 Episodic Other nutritional; endocrine; and metabolic disorders (2 sources) Morbid obesity; Translations: [Obesity, morbid, BMI 40.0-49.9] Onset: 10-05-2017 10-05-2017 Chronic Other nutritional; endocrine; and metabolic disorders (15 sources) Body mass index 40+ - severely obese; Translations: [Body mass index (BMI) 40.0-44.9, adult] Onset: 10-05-2017 Chronic Other nutritional; endocrine; and metabolic disorders (2 sources) Body mass index (BMI) 40.0-44.9, adult; Translations: [Body mass index (BMI) 40.0-44.9, adult] Onset: 09-15-2023 Chronic Other and delivery including normal (20 sources) ; Translations: [First trimester ] Onset: 11-25-2023 11-26-2023 Episodic Comment on above: Carrier neg. , NIPT low risk. Nl anatomy GBS neg, Carrier neg . , NIPT low risk. Nl anatomy SM IOL GDM girl Sarmiento Other screening for suspected conditions (not mental disorders or infectious disease) (20 sources) Raised TSH level; Translations: [Other specified abnormal findings of blood chemistry] Onset: 12-04-2019 Resolved: 06-07-2020 06-07-2020 Episodic Comment on above: had BPP 08/27. now 10/20 0 d/c home Other upper respiratory disease (20 sources) Seasonal allergy; Translations: [Other seasonal allergic rhinitis] 12-17-2023 Chronic Other upper respiratory disease (2 sources) Other seasonal allergic rhinitis; Translations: [Other seasonal allergic rhinitis] Onset: 06-30-2024 Chronic Other upper respiratory infections (7 sources) Acute upper respiratory infection; Translations: [Acute upper respiratory infection, unspecified] Onset: 06-01-2023 Episodic Otitis media and related conditions (6 sources) Acute non-suppurative otitis media - serous; Translations: [Acute serous otitis media] Onset: 06-01-2023 11-27-2020 Episodic Ovarian cyst (20 sources) Cyst of left ovary; Translations: [Unspecified ovarian cyst, left side] Onset: 11-25-2023 11-26-2023 Episodic Comment on above: on L ovary + Fibroid s Residual codes; unclassified (2 sources) Insomnia, unspecified; Translations: [Insomnia, unspecified] Onset: 09-13-2023 Episodic Residual codes; unclassified (7 sources) Gestation period, 39 weeks; Translations: [39 weeks gestation of ] 12-10-2023 Episodic Residual codes; unclassified (1 source) 38 weeks gestation of ; Translations: [38 weeks gestation of ] Onset: 07-23-2024 Episodic Residual codes; unclassified (1 source) 37 weeks gestation of ; Translations: [37 weeks gestation of ] Onset: 06-30-2024 Episodic Residual codes; unclassified (1 source) 36 weeks gestation of ; Translations: [36 weeks gestation of ] Onset: 06-23-2024 Episodic Residual codes; unclassified (1 source) 34 weeks gestation of ; Translations: [34 weeks gestation of ] Onset: 06-27-2024 Episodic Residual codes; unclassified (1 source) 32 weeks gestation of ; Translations: [32 weeks gestation of ] Onset: 05-29-2024 Episodic Screening and history of mental health and substance abuse codes (20 sources) Ex-smoker; Translations: [Personal history of nicotine dependence] Onset: 06-30-2024 12-17-2023 Episodic Comment on above: Stopped 2 years ago Spondylosis; intervertebral disc disorders; other back problems (1 source) Acute low back pain; Translations: [Acute right-sided low back pain, unspecified whether sciatica present] Episodic Thyroid disorders (18 sources) Hypothyroidism; Translations: [Hypothyroidism, unspecified] Onset: 03-20-2024 04-17-2024 Chronic Comment on above: nl labs 01/12. per P t - is borderline ... Thyroid baseline labs ordered Unclassified (2 sources) RUNNY NOSE COUGH CONGESTION 11-27-2020 Comment on above: RUNNY NOSE COUGH CON GESTION Unclassified (2 sources) SORE THROAT AND EAR PAIN 03-19-2022 Comment on above: SORE THROAT AND EAR PAIN Past or Other Problems Problem Classification Problem Date Documented Date Episodic/Chronic Other complications of (1 source) Supervision of high risk , unspecified, unspecified trimester; Translations: [Supervision of high risk , unspecified, unspecified trimester] Onset: 04-06-2024 Episodic Other nutritional; endocrine; and metabolic disorders (5 sources) Polyphagia; Translations: [Polyphagia] Onset: 06-01-2023 06-01-2023 Episodic Pulmonary heart disease (8 sources) H/O: pulmonary embolus; Translations: [Personal history of pulmonary embolism] Onset: 01-25-2024 01-25-2024 Episodic Comment on above: questionable whether she had this At age 15- diagnosed at and never had any follow up, took a pill for one month. per hemtaology they do not believe it was a PE and would nt recommend anticoagulation. recommend only anticoagulation based on her factor V status. Residual codes; unclassified (9 sources) Insomnia; Translations: [Insomnia, unspecified] Onset: 12-04-2019 Resolved: 07-19-2020 07-19-2020 Episodic Residual codes; unclassified (1 source) 30 weeks gestation of ; Translations: [30 weeks gestation of ] Onset: 05-15-2024 Episodic Residual codes; unclassified (1 source) 26 weeks gestation of ; Translations: [26 weeks gestation of ] Onset: 04-17-2024 Episodic Residual codes; unclassified (1 source) 22 weeks gestation of ; Translations: [22 weeks gestation of ] Onset: 03-20-2024 Episodic Residual codes; unclassified (1 source) 14 weeks gestation of ; Translations: [14 weeks gestation of ] Onset: 01-25-2024 Episodic Results Test Name Value Interpretation Reference Range Facility Bedside Glucoseon 07-14-2024 [facility] GLU 83 mg/dL Normal -[address] [place] [address] Comment on above: Result Comment: LORI GEMENT OF PATIENT CARE PER NURSING PROTOCOL Performed By: #### L 509.8002 #### [facility] [address] [place], [place], [id number] Gl[facility] measurement at [facility] deOrdered By: Stephanie Mtz on 07-14-2024 Bedside Glucose (Misc Panel) 83 mg/dL [address] [place] [address] Comment on above: MANAGEMENT OF PATIEN T CARE PER NURSING PROTOCOL Absolute neutrophil countOrd ered By: Stephanie Mtz on 07-13-2024 Neutrophils (Bld) [#/Vol] 6.1 10*3/uL 2.0-7.7 [facility] Basophil percentageOrdered B y: Stephanie Mtz on 07-13-2024 Basophils/100 WBC (Bld) 0.2 % 0-1 [facility] Bedside Glucoseon 07-13-2024 [facility] GLU 91 mg/dL Normal [address] [place] [address] Comment on above: Result Comment: LORI GEMENT OF PATIENT CARE PER NURSING PROTOCOL Performed By: #### L 501.080 ####[facility] [address] [place], [place], [id number] FINGERSTICK GLU 69 mg/dL Low -[address] [place] [address] Comment on above: Result Comment: LORI GEMENT OF PATIENT CARE PER NURSING PROTOCOL Performed By: #### L 501.080 #### [facility] [address] [place], [address] FINGERSTICK GLU 71 mg/dL Low 74-106 [facility] Comment on above: Result Comment: LORI GEMENT OF PATIENT CARE PER NURSING PROTOCOL Performed By: #### L 501.080 #### [facility] [address] [place], [address] FINGERSTICK GLU 70 mg/dL Low 74-106 [facility] Comment on above: Result Comment: LORI GEMENT OF PATIENT CARE PER NURSING PROTOCOL Performed By: #### L 501.080 #### [facility] [address] [place], [address] FINGERSTICK GLU 93 mg/dL Normal 74-106 [facility] Comment on above: Result Comment: LORI GEMENT OF PATIENT CARE PER NURSING PROTOCOL Performed By: #### L 509.8002 #### [facility] [address] [place], [address] FINGERSTICK GLU 76 mg/dL Normal 74-106 [facility] Comment on above: Result Comment: LORI GEMENT OF PATIENT CARE PER NURSING PROTOCOL Performed By: #### L 501.080 ####[facility] [address] [place], [address] FINGERSTICK GLU 64 mg/dL Low 74-106 [facility] Comment on above: Result Comment: LORI GEMENT OF PATIENT CARE PER NURSING PROTOCOL Performed By: #### L 501.080 #### [facility] [address] [place], [address] FINGERSTICK GLU 107 mg/dL High 74-106 [facility] Comment on above: Result Comment: LORI GEMENT OF PATIENT CARE PER NURSING PROTOCOL Performed By: #### L 509.8002 #### [facility] [address] [place], [address] FINGERSTICK GLU 81 mg/dL Normal 74-106 [facility] Comment on above: Result Comment: LORI GEMENT OF PATIENT CARE PER NURSING PROTOCOL Performed By: #### L 501.080 #### [facility] [address] [place], [address] FINGERSTICK GLU 80 mg/dL Normal 74-106 [facility] Comment on above: Result Comment: LORI GEMENT OF PATIENT CARE PER NURSING PROTOCOL Performed By: #### L 509.8002 #### [facility] [address] [place], [address] FINGERSTICK GLU 88 mg/dL Normal 74-106 [facility] Comment on above: Result Comment: LORI GEMENT OF PATIENT CARE PER NURSING PROTOCOL Performed By: #### L 501.080 #### [facility] [address] [place], [address] FINGERSTICK GLU 84 mg/dL Normal 74-106 [facility] Comment on above: Result Comment: LORI GEMENT OF PATIENT CARE PER NURSING PROTOCOL Performed By: #### L 501.080 #### [facility] [address] [place], [address] CBC W/Diff, Automatedon 04-2 -2024 Absolute Lymph 1.50 X10 3/uL Normal 0.83-4.51 [facility] Comment on above: Performed By: #### L 509.8002 #### [facility] [address] [place], [address] Absolute Neut 6.1 X10 3/uL Normal 2.0-7.7 [facility] Comment on above: Performed By: #### L 509.8002 #### [facility] [address] [place], [address] Basophils/100 WBC (Bld) 0.2 % Normal 0-1 [facility] Comment on above: Performed By: #### L 509.8002 #### [facility] [address] [place], [address] Eosinophils/100 WBC (Bld) 1.1 % Normal 0-5 [facility] Comment on above: Performed By: #### L 509.8002 #### [facility] [address] [place], [address] Erythrocyte distribution width (RBC) [Ratio] 13.0 % Normal 11.6-14.6 [facility] Comment on above: Performed By: #### L 509.8002 #### [facility] [address] [place], [address] Hematocrit (Bld) [Volume fraction] 43.0 % Normal 37-47 [facility] Comment on above: Performed By: #### L 509.8002 #### [facility] [address] [place], [address] Hemoglobin (Bld) [Mass/Vol] 14.3 g/dL Normal 12.0-15.0 [facility] Comment on above: Performed By: #### L 509.8002 #### [facility] [address] [place], [address] IG% 0.500 Normal 0.0-0.9 [facility] Comment on above: Result Comment: IG% - Immature Granulocytes (promyelocytes, myelocytes and metamyelocytes) > 1% indicates that a LEFT SHIFT is Present. Performed By: #### L 509.8002 #### [facility] [address] [place], [address] Lymphocytes/100 WBC (Bld) 17.8 % Low 19-41 [facility] Comment on above: Performed By: #### L 509.8002 #### [facility] [address] [place], [address] MCH (RBC) [Entitic mass] 28.9 pg Normal 27.0-32.0 [facility] Comment on above: Performed By: #### L 509.8002 #### [facility] [address] [place], [address] MCHC (RBC) [Mass/Vol] 33.3 g/dL Normal 32-36 [facility] Comment on above: Performed By: #### L 509.8002 #### [facility] [address] [place], [address] MCV (RBC) [Entitic vol] 87.0 fL Normal 81-99 [facility] Comment on above: Performed By: #### L 509.8002 #### [facility] [address] [place], [address] Monocytes/100 WBC (Bld) 8.4 % Normal 0-10 [facility] Comment on above: Performed By: #### L 509.8002 #### [facility] [address] [place], [address] Neutrophils/100 WBC (Bld) 72.0 % High 47-70 [facility] Comment on above: Performed By: #### L 509.8002 #### [facility] [address] [place], [address] Nucleated RBC (Bld) [#/Vol] 0 10*3/uL Normal 0-5 [facility] Comment on above: Performed By: #### L 509.8002 #### [facility] [address] [place], [address] Platelet mean volume (Bld) [Entitic vol] 11.1 fL Normal 6.2-12.0 [facility] Comment on above: Performed By: #### L 509.8002 #### [facility] [address] [place], [address] Platelets (Bld) [#/Vol] 276 10*3/uL Normal 150-450 [facility] Comment on above: Performed By: #### L 509.8002 #### [facility] [address] [place], [address] RBC (Bld) [#/Vol] 4.94 10*6/uL Normal 4.2-5.4 [facility] Comment on above: Performed By: #### L 509.8002 #### [facility] [address] [place], [address] RDW SD 40.8 fl Normal 35.1-43.9 [facility] Comment on above: Performed By: #### L 509.8002 #### [facility] [address] [place], [address] WBC (Bld) [#/Vol] 8.4 10*3/uL Normal 4.4-11.0 [facility] Comment on above: Performed By: #### L 509.8002 #### [facility] [address] [place], [address] PLT EST ADEQUATE Normal ADEQ [facility] Comment on above: Performed By: #### L 100.0100, BTS ####[facility] [address] [place], [address] Discharge Instructionon 06-[address] [facility] Medical Records Department [address] [place] [address] Instructions for Home/Discharge Instructions 07/13/242126 MR#: [id number] Acct: [id number] Name: YUSRA FUENTES Rep #: [id number] : 1995 29 From: Stephanie Mtz MD PCP: KULDIP Marroquin Status:ADM IN Discharge Instructions Diet Discharge Diet: No restrictions DC O2, CPAP, BIPAP needs Home O2 Discharge instructions: No Dressing / Incision Discharge Activity: Return to Normal Activity, May Not Drive (while taking narcotic pain medications.) and May Shower May resume sexual activity in: 4-6 weeks Dressing / Incision Call your doctor if your incision/area has: Continuous Slow Oozing, Sudden Increased Bleeding, Increased Pain/ Swelling, Increased Redness and Foul Smelling Discharge Follow Up Care Please Follow Up With: Stephanie Mtz MD When: Call [phone] to make an appointment with your doctor in 6 weeks. If you had elevated blood pressure or 4th degree laceration, you will need to be seen in 2 weeks. Test Results: Test results from this visit will be discussed in further detail at your follow-up appointment, if applicable. Discharge Plan Admission Admit Date/Time: 07/13/24 06:50 Attending Provider: Stephanie Mtz Primary Care Provider: Nancy Sam Discharge Orders/Prescriptions Prescriptions: No Action metformin 500 mg tablet 500 mg PO QHS Qty: 30 6RF aspirin [Adult Low Dose Aspirin] 81 mg tablet,delayed release (DR/EC) 81 mg PO QDAY docusate sodium [Colace] 100 mg capsule 200 mg PO QDAY PRN (Reason: constipation) Prenatabs FA 1 TABLET tablet 1 tab PO DAILY (DME) Blood Glucose Test Strip See Rx Instructions .MEDSUPPLY Qty: 120 5RF Rx Instructions: As directed-fasting 2 hr post meals (DME) blood-glucose meter Misc See Rx Instructions .MEDSUPPLY Qty: 1 0RF Rx Instructions: As directed- Test fasting and 2 hours after meals (DME) lancets Misc See Rx Instructions .MEDSUPPLY Qty: 200 5RF Rx Instructions: As directed-fasting 2 hr post meals Referrals / Follow Up: Nancy Sam, CAMPAIGN MARKETING MANAGER-C [Primary Care Provider] - Disposition Disposition (needs filled in before D/C Order can be placed): Home, Self Care 07/13/242133 Stephanie Mtz MD CC: CAMPAIGN MARKETING MANAGER-C Nancy Sam Signed Normal [facility] Eosinophil percentageOrdered By: Stephanie Mtz on 07-13-2024 Eosinophils/100 WBC (Bld) 1.1 % 0-5 [facility] Erythrocyte distribution wid th (RBC) [Ratio]Ordered By: Stephanie Mtz on 07-13-2024 Erythrocyte distribution width (RBC) [Entitic vol] 40.8 fL 35.1-43.9 [facility] Erythrocyte distribution wid th ratioOrdered By: Stephanie Mtz on 07-13-2024 Erythrocyte distribution width (RBC) [Ratio] 13.0 % 11.6-14.6 [facility] H AND P Exam - OB/GYNon 06-21 H&P Exam - ROAD TESTER [facility] Medical Records Department [address] [place] [address] H P Exam - ROAD TESTER 07/13/24 0821 MR#: [id number] Acct: [id number] Name: YUSRA FUENTES Rep #: [id number] : 1995 29 From: Stephanie Mtz MD PCP: Nancy Sam, CAMPAIGN MARKETING MANAGER-C Status:ADM IN Location: [id number] HPI - General General Date of Admission: 07/13/24 HPI Narrative YUSRA FUENTES, is a 29 F who presents for IOL secondary to GDM controlle don metformin, also has had unstable lie. no vb lof admits good fm Maternal Data Information AUGUST Calculator Estimated Delivery Date Method Current WG Current Estimate 07/20/24 LMP (Certain) 39w 0d PFSH PFSH Medical History (Updated 07/13/24 @ 08:[address] Stephanie Mtz MD) Gestational diabetes History of pulmonary embolism Depression Psoriasis Seasonal allergies 39 weeks gestation of Home Medications ???Medication ???Instructions ???Recorded ???Last Taken ???Type vits,calcium no.78-iron 1 tab PO DAILY 04/18/15 07/12/24 History fumarate-folic acid 29 mg-1 mg tablet (Prenatabs FA) aspirin 81 mg tablet,delayed 81 mg PO QDAY 01/25/24 0 07/12/24 History release (Adult Low Dose Aspirin) docusate sodium 100 mg capsule 200 mg PO QDAY PRN constipation 07/12/24 History (Colace) blood sugar diagnostic (Blood #120 ea 04/25/24 Unknown Rx Glucose Test strips) blood-glucose meter #1 ea 04/25/24 Unknown Rx lancets #200 ea 04/25/24 Unknown Rx metformin 500 mg tablet 500 mg PO QHS #30 tabs 0 06/12/24 07/12/24 Rx Allergy/AdvReac Type Severity Reaction Status Date / Time mushroom Allergy Swelling Verified 07/13/24 07:29 Family History Mother Heart disease Hypothyroidism Grandmother , great-grandma Breast cancer Social History adopted: No household members: spouse and children number of children: 2 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 current occupational exposures/hazards: No pets and animals: Yes (Not taking care litter box) pets and animals: cat(s) history of recent travel: Yes ([place] in Nov 2023) out of state: Yes out of country: No sexually active: Yes Smoking Status: Former smoker alcohol intake: never substance use type: does not use diet: other well-balanced diet: daily or most days caffeine: Yes eating out: 1-3 times/week during the past year weight has: other details: Lost 30lbs on [place], has gain about 15lbs back what type of physical activity do you participate in: walking frequency: 3-4 times per week duration: < 15 minutes/day angela/cheondoism: None seatbelt use: always do you feel safe at home: Yes 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 Date Name GA/Weeks Outcome Route Bth Weight Infant Gen Labor Lgth Anesthesia Del Locat Provider FOB Unknown Chemical - 2018 04/06/15 [place] 38 live - full term 8lbs 14oz Male 36 epidural [facility] [place]z 01/12/19 [place] 39 live - full term 9lbs 4oz Male 8 epidural [facility] S mer [facility] Delivery Date: 04/06/15 Last Updated by: Sujey Hong RN Gained 60lbs, Induced d/t early pre-e Delivery Date: 01/12/19 Last Updated by: Sujey Hong RN Induction d/t size Visit Details Expected Delivery Route/Plan Labor Preferences- CB/BF classes: [] labor support person: [] labor intervention preferences: [] pain management options preferred: [] cut cord/dad catch: [] : [] PP control planned: [] discussed possible routes of delivery and associated risks: [] special requests: [] Plans Covid status: [] Flu vaccine: [] Tdap vaccine: [] Rhogam: [] LARC form signed: [] Problem list reviewed and updated with the most current plan of care details and appropriate orders placed. Relevant counseling for the gestational age provided. Continue routine care and follow up unless otherwise noted in visit notes/problem list details OB Flowsheet Initial Weight: 245 lb Date -???-???-???-???-??? -???-???-???-???-??? -???-???- EGA Weight BP Urine Prot -???-???-???-???-??? -???-???-???-???-??? -???-???- Glucose FHR FuHt Pres Dilation -???-???-???-???-??? -???-???-???-???-??? -???-???- Effaced St Visit Note 12/30/23 -???-???-???-???-??? -???-???-???-???-??? -???-???- 11w 0d 245 lb 2 oz (+2 oz) 127/77 -???-???-???-???-??? -???-???-???-???-??? -???-?? (more content not included)... Normal [facility] Hematocrit Auto (Bld) [Volum e fraction]Ordered By: Stephanie Mtz on 07-13-2024 Hematocrit (Bld) [Volume fraction] 43.0 % 37-47 [facility] Hemoglobin measurementOrdere d By: Stephanie Mtz on 07-13-2024 Hemoglobin (Bld) [Mass/Vol] 14.3 g/dL 12.0-15.0 [facility] Immature granulocytes/100 WB C Auto (Bld)Ordered By: Stephanie Mtz on 07-13-2024 Immature granulocytes/100 WBC (Bld) 0.500 % 0.0-0.9 [facility] Comment on above: IG% - Immature Granu locytes (promyelocytes, myelocytes and metamyelocytes) > 1% indicates that a LEFT SHIFT is Present. Lymphocytes Auto (Unsp spec) [#/Vol]Ordered By: Stephanie Mtz on 07-13-2024 Lymphocytes (Bld) [#/Vol] 1.50 10*3/uL 0.83-4.51 [facility] Lymphocytes/100 WBC Auto (Un sp spec)Ordered By: Stephanie Mtz on 07-13-2024 Lymphocytes/100 WBC (Bld) 17.8 % Low 19-41 [facility] MCV (mean corpuscular volume ) determinationOrdered By: Stephanie Mtz on 07-13-2024 MCV (RBC) [Entitic vol] 87.0 fL 81-99 [facility] MR/OB.VAGDELIon 07-13-2024 [facility] Medical Records Department [address] [place] [address] OB Vaginal Delivery 07/13/242124 MR#: [id number] Acct: [id number] Name: YUSRA FUENTES Rep #: [id number] : 1995 29 From: Stephanie Mtz MD PCP: KULDIP Marroquin Status:ADM IN Location: [id number] Assessment Plan (1) Encounter for induction of labor: (2) Gestational diabetes: COMMENT: metformin (3) Abnormal glucose level: COMMENT: 3 HR GTT-failed. 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 She had a suboptimal management for PE so I do not think she had PE. daily ASA, lovenox X 6 wk pp If c section (5) Obesity affecting : QUALIFIERS: Trimester: second trimester Obesity type affecting : unspecified obesity Qualified Code(s): O99.212 - Obesity complicating , second trimester COMMENT: HgB A1C ordered, growth US 32, 36 weeks, bpp weely 34 weeks on (6) Request for sterilization: COMMENT: After this (7) Former smoker: COMMENT: Stopped 2 years ago (8) Supervision of high-risk : QUALIFIERS: Trimester: second trimester Qualified Code(s): O09.92 - Supervision of high risk , unspecified, second trimester COMMENT: PRR, , AUGUST 07/20/24, PC: Aletheaarvind Wrightnet, : Itz (9) : QUALIFIERS: Weeks of gestation: 38 weeks Qualified Code(s): Z3A.38 - 38 weeks gestation of COMMENT: GBS neg, Carrier neg. , NIPT low risk. Nl anatomy (10) H/O pre-eclampsia in prior , currently : COMMENT: with first , Pre-e baseline labs ordered-asa at 12 weeks (11) Vaginal delivery: COMMENT: SM IOL GDM girl Sarmiento Maternal Data Information AUGUST Calculator Estimated Delivery Date Method Current WG Current Estimate 07/20/24 LMP (Certain) 39w 0d Vaginal Delivery Maternal Presentation Maternal Presentation: see assessment and plan Vaginal Delivery Information Procedure Performed: Spontaneous Vaginal Delivery Surgeon/Practitioner : Stephanie Mtz Pre-Procedure Diagnosis: see assessment and plan Post-Procedure Diagnosis: same Type of anesthesia: Epidural Estimated Blood Loss: 200 Findings Description of procedure: Patient began pushing and delivered the head in the BIA presentation. The head was delivered atraumatically . The anterior and posterior shoulders delivered without complication followed by the rest of the and the infant was placed on the maternal abdomen. Delayed cord clamping was employed for approximately 60 seconds. Cord was clamped and cut and gentle traction was applied to the cord and the placenta delivered spontaneously immediately following it was noted to be intact with three-vessel cord. The perineum and vagina were inspected and noted to have no laceration. EBL was 200. Patient and tolerated delivery well. Presentation: Vertex Placental Delivery Description: Spontaneous Specimen collected: Yes Description of specimen(s) removed: placenta Ruching Machine Operator accounts receivable collector: No Post Vaginal Deli Medications given after delivery: Other (pitocin) Complication Complications: No Multi Select Codes Urinary/Genital Urinary/Genital CPT Codes: 98182 Vaginal Delivery [facility] 07/13/242125 Cosigner Signature (if applicable): CC: CAMPAIGN MARKETING MANAGERJn Sam; Dr. Stephanie Mtz MD Signed Normal [facility] Mean corpuscular hemoglobin (MCH) determinationOrdered By: Stephanie Mtz on 07-13-2024 MCH (RBC) [Entitic mass] 28.9 pg 27.0-32.0 [facility] Mean corpuscular hemoglobin concentration (MCHC) determinationOrdered By: Stephanie Mtz on 07-13-2024 MCHC (RBC) [Mass/Vol] 33.3 g/dL 32-36 [facility] Mean platelet volume determi nationOrdered By: Stephanie Mtz on 07-13-2024 Platelet mean volume (Bld) [Entitic vol] 11.1 fL 6.2-12.0 [facility] Monocyte percentageOrdered B y: Stephanie Mtz on 07-13-2024 Monocytes/100 WBC (Bld) 8.4 % 0-10 [facility] Neutrophil percentageOrdered By: Stephanie Mtz on 07-13-2024 Neutrophils/100 WBC (Bld) 72.0 % High 47-70 [facility] Nucleated red blood cell per centageOrdered By: Stephanie Mtz on 07-13-2024 Nucleated RBC/100 WBC (Bld) [Ratio] 0 % 0-5 [facility] Platelet countOrdered By: Yoselin Mtz on 07-13-2024 Platelets (Bld) [#/Vol] 276 10*3/uL 150-450 [facility] Platelets LM Ql (Bld)Ordered By: Stephanie Mtz on 07-13-2024 Platelet Estimate ADEQUATE ADEQ [facility] RBC Auto (Bld) [#/Vol]Ordere d By: Stephanie Mtz on 07-13-2024 RBC (Bld) [#/Vol] 4.94 10*6/uL 4.2-5.4 [facility] Syphilis Antibodieson 2024 Syphilis Abs Non-Reactive Normal Nonreactive [facility] Comment on above: Performed By: #### L 509.8002 #### [facility] [address] [place], [address] T. pallidum abOrdered By: Yoselin Mtz on 07-13-2024 Syphilis Total Antibody Non-Reactive Nonreactiv e [facility] Type AND Screenon 07-13-2024 ABO and Rh group Nom (Bld) Blood group AB Rh(D) positive Normal [facility] Comment on above: Order Comment: Labor Performed By: #### L 100.0100, BTS ####[facility] [id number] [place], [place], [id number] White blood cell (WBC) count Ordered By: Stephanie Mtz on 07-13-2024 WBC (Bld) [#/Vol] 8.4 10*3/uL 4.4-11.0 [facility] Biophysical Prof W/O Non Str eson 07-10-2024 Biophysical Prof W/O Non Stres [facility] Imaging Services [address] [place], [place] [id number] Biophysical Prof W/O Non Stres MR#: [id number] Acct: [id number] Name: YUSRA FUENTES Rep #: [id number] : 1995 F 29 From: Otis westbrook MD PCP: KULDIP Marroquin Status: REG CLI Study: Biophysical Prof W/O Non Stres Date of Exam: 0 07/10/24 Exam# [id number] Ordering Dr: Stephanie Mtz PROCEDURE: BIOPHYSICAL PROF W/O NON STRES 07/10/2024 REASON FOR EXAM: WELL BEING TECHNIQUE: Biophysical profile was performed. COMPARISON: Comparison is made with prior study dated July 03, 2024. FINDINGS position: Cephalic heart rate: 150 beats per minute Amniotic fluid: Normal. Largest fluid pocket: 9.4 cm x 6.1 cm. Amniotic fluid index: 24 cm. Placenta location: Anterior and not low-lying. Placental grade: 2 Biophysical profile: Breathing movements: 2 Gross body movements: 2 tone: 2 Amniotic fluid volume: 2 Total score: 8/8 US/Biophysical Prof W/O Non Stres IMPRESSION: Normal biophysical profile. Reading Location: [id number] CC: KULDIP Sam; Dr. Stephanie Mtz MD Med Admin: Signed Normal [facility] - Chemistry and C hemistry - challengeOrdered By: Stephanie Mtz on 07-07-2024 Glucose Ql (U) Negative [facility] - UrinalysisOrder ed By: Stephanie Mtz on 07-07-2024 Protein Ql (U) Negative [facility] Stranding Supervisor Office Visit Reporton 07-07-2024 Stranding Supervisor Office Visit Report [facility] [address], [address] [place] [address] OFFICE VISIT Date of Service: 07/07/24 MR#: [id number] Acct: [id number] Name: YUSRA FUENTES Rep #: [id number] : 1995 Provider: Dr. Stephanie luna MD Age/Sex: 29/F Location: [facility] Status: Signed Intake Vital Signs 06/12/24 09:24 06/30/24 09:51 07/07/24 12:53 Height 5 ft 4 in 5 ft 4 in 5 ft 4 in Weight: 276 lb 6 oz BMI 47.4 BP 128/79 H Intake Visit Reasons: 38 WK OB/NST Customer Service Professional Required: No Is patient in pain?: No Allergies mushroom Allergy (Verified 07/07/24 12:54) Swelling Medications ???Medication ???Instructions ???Recorded ???Confirmed ???Type vits,calcium no.78-iron 1 tab PO DAILY 04/18/15 07/07/24 History fumarate-folic acid 29 mg-1 mg tablet (Prenatabs FA) aspirin 81 mg tablet,delayed 81 mg PO QDAY 01/25/24 07/07/24 Hi story release (Adult Low Dose Aspirin) docusate sodium 100 mg capsule 200 mg PO QDAY PRN constipation 07/07/24 History (Colace) blood sugar diagnostic (Blood #120 ea 04/25/24 07/07/24 Rx Glucose Test strips) blood-glucose meter #1 ea 04/25/24 07/07/24 Rx lancets #200 ea 04/25/24 07/07/24 Rx metformin 500 mg tablet 500 mg PO QHS #30 tabs 06/12/24 Rx Last Menstrual Period: 10/14/23 Zika: Zika virus screening: Negative : No PFSH PFSH Medical History History of pulmonary embolism 39 weeks gestation of Depression Psoriasis Seasonal allergies Family History Mother Heart disease Hypothyroidism Grandmother , great-grandma Breast cancer Social History adopted: No household members: spouse and children number of children: 2 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 current occupational exposures/hazards: No pets and animals: Yes (Not taking care litter box) pets and animals: cat(s) history of recent travel: Yes ([place] in Nov 2023) out of state: Yes out of country: No sexually active: Yes Smoking Status: Former smoker alcohol intake: never substance use type: does not use diet: other well-balanced diet: daily or most days caffeine: Yes eating out: 1-3 times/week during the past year weight has: other details: Lost 30lbs on Wegovy, has gain about 15lbs back what type of physical activity do you participate in: walking frequency: 3-4 times per week duration: < 15 minutes/day angela/cheondoism: None seatbelt use: always do you feel safe at home: Yes 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 Date Name GA/Weeks Outcome Route Bth Weight Gen Labor Lgth Anesthesia Del Locatn Provider FOB Unknown Chemical - 2018 04/06/15 [place] 38 live - full term 8lbs 14oz Male 36 epidural [facility] Summer Svetlana Mobley 01/12/19 [place] 39 live - full term 9lbs 4oz Male 8 epidural [facility] S ummer Svetlana Mobley Delivery Date: 04/06/15 Last Updated by: Sujey Hong RN Gained 60lbs, Induced d/t early pre-e Delivery Date: 01/12/19 Last Updated by: Sujey Hong RN Induction d/t size HPI 38 WK OB/NST Details: YUSRA FUENTES is a 29 year old who presents for routine OB visit. OB Visit AUGUST Calculator Estimated Delivery Date Method Current WG Current Estimate 07/20/24 LMP (Certain) 38w 6d Expected Delivery Route/Plan Labor Preferences- CB/BF classes: [] labor support person: [] labor intervention preferences: [] pain management options preferred: [] cut cord/dad catch: [] : [] PP control planned: [] discussed possible routes of delivery and associated risks: [] special requests: [] Specific Issue/Plans Covid status: [] Flu vaccine: [] Tdap vaccine: [] Rhogam: [] LARC form signed: [] Problem list reviewed and updated with the most current plan of care details and appropriate orders placed. Relevant counseling for the gestational age provided. Continue routine care and follow up unless otherwise noted in visit notes/problem list details Initial Weight: 245 lb Date -???-???-???-???-??? -???-???-???-???-??? -???-???- EGA Weight BP Urine Prot -???-???-???-???-??? -???-???-???-???-??? -???-???- Glucose FHR FuHt Pres Dilation -???-???-???-???-??? -???-???-???-???-??? -???-???- Effaced St Visit Note 12/30/23 -???-???-?? (more content not included)... Normal [facility] Biophysical Prof W/O Willow Powell eson 07-03-2024 Biophysical Prof W/O Willow James [facility] Imaging Services [address] [place], [place] [id number] Biophysical Prof W/O Willow James MR#: [id number] Acct: [id number] Name: YUSRA FUENTES Rep #: [id number] : 1995 F 29 From: Audra lo MD PCP: KULDIP Marroquin Status: REG CLI Study: Biophysical Prof W/O Non Stres Date of Exam: 0 07/03/24 Exam# [id number] Ordering Dr: Stephanie Mtz PROCEDURE: BIOPHYSICAL PROF W/O NON STRES 07/03/2024 REASON FOR EXAM: WELL BEING TECHNIQUE: High resolution obstetric ultrasound performed using a 2D transducer. Standard views obtained, including biometry, anatomy survey, and Doppler studies. COMPARISON: 06/27/2024. FINDINGS Single, live intrauterine gestation. Cephalic presentation. heart rate 139 beats per minute. Estimated age by LMP 37 weeks and 4 days with an estimated delivery date on 07/20/2024. Estimated age by previous ultrasound 38 weeks and 2 days with an estimated delivery date on 07/15/2024. Amniotic fluid index 17.7 cm. Largest amniotic fluid pocket 5.9 x 9.8 cm. Anterior placenta which is not low lying. Placenta grade 2. Biophysical profile : Breathing movements 2/2. Gross body movements 2/2. tone 2/2. Amniotic fluid volume 2/2. Biophysical profile score 8/8. US/Biophysical Prof W/O Non Stres IMPRESSION: Single, live intrauterine gestation. Biophysical profile score 8/8, normal values. Reading Location: [place] [address] CC: KULDIP Sam; Dr. Stephanie Mtz MD Med Admin: Signed Normal [facility] Stranding Supervisor Office Visit Reporton 06-30-2024 Stranding Supervisor Office Visit Report [facility] [address], [address] [place] [address] OFFICE VISIT Date of Service: 06/30/24 MR#: [id number] Acct: [id number] Name: YUSRA FUENTES Rep #: [id number] : 1995 Provider: Dr. Britany Burns DO Age/Sex: 29/F Location: [facility] Status: Signed Intake Vital Signs 06/12/24 09:24 06/23/24 08:58 06/30/24 09:51 Height 5 ft 4 in 5 ft 4 in 5 ft 4 in Weight: 273 lb 274 lb 8 oz BMI 46.8 47.1 BP 134/79 H 132/83 H Intake Visit Reasons: 37 WK OB/NST Customer Service Professional Required: No Is patient in pain?: No Allergies mushroom Allergy (Verified 06/23/24 09:04) Swelling Medications ???Medication ???Instructions ???Recorded ???Confirmed ???Type vits,calcium no.78-iron 1 tab PO DAILY 04/18/15 06/30/24 History fumarate-folic acid 29 mg-1 mg tablet (Prenatabs FA) aspirin 81 mg tablet,delayed 81 mg PO QDAY 01/25/24 06/30/24 Hi story release (Adult Low Dose Aspirin) docusate sodium 100 mg capsule 200 mg PO QDAY PRN constipation 06/30/24 History (Colace) blood sugar diagnostic (Blood #120 ea 04/25/24 06/30/24 Rx Glucose Test strips) blood-glucose meter #1 ea 04/25/24 06/30/24 Rx lancets #200 ea 04/25/24 06/30/24 Rx metformin 500 mg tablet 500 mg PO QHS #30 tabs 06/12/24 Rx Last Menstrual Period: 10/14/23 Zika: Zika virus screening: Negative : No PFSH PFSH Medical History History of pulmonary embolism 39 weeks gestation of Depression Psoriasis Seasonal allergies Family History Mother Heart disease Hypothyroidism Grandmother , great-grandma Breast cancer Social History adopted: No household members: spouse and children number of children: 2 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 current occupational exposures/hazards: No pets and animals: Yes (Not taking care litter box) pets and animals: cat(s) history of recent travel: Yes ([place] in Nov 2023) out of state: Yes out of country: No sexually active: Yes Smoking Status: Former smoker alcohol intake: never substance use type: does not use diet: other well-balanced diet: daily or most days caffeine: Yes eating out: 1-3 times/week during the past year weight has: other details: Lost 30lbs on Wegovy, has gain about 15lbs back what type of physical activity do you participate in: walking frequency: 3-4 times per week duration: < 15 minutes/day angela/cheondoism: None seatbelt use: always do you feel safe at home: Yes 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 Date Name GA/Weeks Outcome Route Bth Weight Gen Labor Lgth Anesthesia Del Locatn Provider FOB Unknown Chemical - 2018 04/06/15 [place] 38 live - full term 8lbs 14oz Male 36 epidural [facility] Summer [facility] Itz 01/12/19 [place] 39 live - full term 9lbs 4oz Male 8 epidural [facility] Itz Delivery Date: 04/06/15 Last Updated by: Sujey Hong RN Gained 60lbs, Induced d/t early pre-e Delivery Date: 01/12/19 Last Updated by: Sujey Hong RN Induction d/t size HPI 37 WK OB/NST Details: YUSRA FUENTES is a 29 year old who presents for routine OB visit. OB Visit AUGUST Calculator Estimated Delivery Date Method Current WG Current Estimate 07/20/24 LMP (Certain) 37w 1d Expected Delivery Route/Plan Labor Preferences- CB/BF classes: [] labor support person: [] labor intervention preferences: [] pain management options preferred: [] cut cord/dad catch: [] : [] PP control planned: [] discussed possible routes of delivery and associated risks: [] special requests: [] Specific Issue/Plans Covid status: [] Flu vaccine: [] Tdap vaccine: [] Rhogam: [] LARC form signed: [] Problem list reviewed and updated with the most current plan of care details and appropriate orders placed. Relevant counseling for the gestational age provided. Continue routine care and follow up unless otherwise noted in visit notes/problem list details Initial Weight: 245 lb Date -???-???-???-???-??? -???-???-???-???-??? -???-???- EGA Weight BP Urine Prot -???-???-???-???-??? -???-???-???-???-??? -???-???- Glucose FHR FuHt Pres Dilation -???-???-???-???-??? -???-???-???-???-??? -???-???- Effaced St Visit No (more content not included)... Normal [facility] Biophysical Prof W/O Non Str eson 06-27-2024 Biophysical Prof W/O Non Stres [facility] Imaging Services [address] [place] [place], [place] [address] Biophysical Prof W/O Non Stres MR#: [id number] Acct: [id number] Name: YUSRA FUENTES Rep #: [id number] : 1995 F 29 From: Zeyad Agustin MD PCP: KULIDP Marroquin Status: [facility] Study: Biophysical Prof W/O Non Stres Date of Exam: 0 06/27/24 Exam# [id number] Ordering Dr: Stephanie Mtz PROCEDURE: BIOPHYSICAL PROF W/O NON STRES (USBIOWO), 06/27/2024 REASON FOR EXAM: WELL BEING. Reportedly 36 weeks 5 days with AUGUST 07/20/2024 by previously established dates TECHNIQUE: Grayscale and color/spectral doppler transabdominal pelvic ultrasound was performed with attention to the uterus and associated gestation. COMPARISON: 06/19/2024 FINDINGS: A single fetus is identified. Cardiac activity: Present, 147 bpm. position: Transverse. Amniotic Fluid Index: 19.9 (normal 5-25), deepest vertical pocket 6.7 (normal 2-8). Placenta: Anterior. A limited obstetrical ultrasound was performed to determine biophysical profile score: Breathing movement: 2 Gross Body movement: 2 Tone: 2 Qualitative Amniotic Fluid: 2 biometry: Biparietal diameter: 9.4 cm, corresponding to 38 weeks 1 day. Head circumference: 33.6 cm, corresponding to 38 weeks 4 days. Occipitofrontal diameter: 11.6 cm, corresponding gestational age not available. Abdominal circumference: 33.9 cm, corresponding to 37 weeks 6 days. Femur length: 6.8 cm, corresponding to 34 weeks 5 days. Composite gestational age: 37 weeks 3 days by today's measurements. Estimated Weight (EFW): 3,143 g +/- 471 g, 67th percentile based on previously established dates. Estimated delivery date (AUGUST): 07/14/2024 by today's measurements. Other: No significant visualized pelvic free fluid. Note borderline low normal femur length to abdominal circumference ratio of 19.92 (lower limit of normal is 20.0). US/Biophysical Prof W/O Non Stres IMPRESSION: 1. Single fetus in transverse positioning at 37 weeks 3 days with AUGUST 07/14/2024 by today's measurements. Correlate with clinical factors including previously established dates. 2. Estimated weight 3,143 g +/- 471 g, 67th percentile based on provided previously established dates. biometry as above. 3. Note borderline low normal femur length to abdominal circumference ratio of 19.92 (lower limit of normal is 20.0). 4. Additional description as above. Reading Location: [id number] CC: CAMPAIGN MARKETING MANAGERJn Sam; Dr. Stephanie Mtz MD Med Admin: Signed Normal [facility] OB Limited With Biometricson 06-27-2024 OB Limited With Biometrics [facility] Imaging Services [address] [place] [address] OB Limited With Biometrics MR#: [id number] Acct: [id number] Name: YUSRA FUENTES Rep #: [id number] : 1995 F 29 From: León Gallo MD PCP: Nancy Sam NP-C Status: DEP CLI Study: OB Limited With Biometrics Date of Exam: 06/27 Exam# [id number] Ordering Dr: Stephanie Mtz EXAM: OB LIMITED WITH BIOMETRICS 06/27/2024 CLINICAL HISTORY: growth COMPARISON: 05/23/2024 TECHNIQUE: Ob ultrasound limited with biometrics transabdominal imaging FINDINGS: Transabdominal imaging. Single live intrauterine with a transverse left presentation. cardiac activity 147 beats per minute. Cervical length is not visualized. Adnexa are not visualized. CHA 19.9 cm, maximum vertical pocket 6.7 cm. Anterior grade 2 placenta appears within limits, not low-lying. BPD: 9.4 cm, 38 weeks 1 day, 92% HC: 33.6 cm, 38 weeks 4 days, 68% AC: 33.9 cm, 37 weeks 6 days, 87% FL: 6.8 cm, 34 weeks 5 days, 7% FL/AC 20%, FL/BPD 72%, FL/HC 20% *, CI 81%, HC/AC 0.99 * FL/HC 19.92 %, range 20.00- 24.00%, 36 weeks 5 days * Estimated weight 3143 g +/-471 g, 67% Estimated age by current ultrasound 37 weeks 3 days, AUGUST 07/15/2024 age by LMP 36 weeks 5 days, AUGUST 07/20/2024 US/OB Limited With Biometrics IMPRESSION: Single live intrauterine with biometrics as above. * FL/HC 19.92 %, range 20.00- 24.00%, 36 weeks 5 days * Reading Location: [facility] CC: CAMPAIGN MARKETING MANAGER-C Nancy Sam; Dr. Stephanie Mtz MD Med Admin: Signed Normal [facility] Rule out Beta Strep (Grp. B) on 06-25-2024 RENALDO Group B Beta Streptococcus is not isolated. Normal [facility] Comment on above: Performed By: #### M 100.3362 ####[facility] [id number] [place], [address] Laboratory - Chemistry and C hemistry - challengeOrdered By: Lara Cespedes on 06-23-2024 Glucose Ql (U) Negative [facility] - UrinalysisOrder ed By: Lara Cespedes on 06-23-2024 Protein Ql (U) Negative [facility] Stranding Supervisor Office Visit Reporton 06-23-2024 Stranding Supervisor Office Visit Report [facility] [address] [place] [address], [address] [place], [place] [id number] OFFICE VISIT Date of Service: 06/23/24 MR#: [id number] Acct: [id number] Name: YUSRA FUENTES Rep #: [id number] : 1995 Provider: ARTEM Albert ams Age/Sex: 29/F Location: [facility] [place] Status: Signed Intake Vital Signs 06/12/24 09:24 06/19/24 13:56 06/23/24 08:58 Height 5 ft 4 in 5 ft 4 in 5 ft 4 in Weight: 273 lb BMI 46.8 BP 134/79 H Intake Visit Reasons: 35WK NST ONLY Customer Service Professional Required: No Is patient in pain?: No Allergies mushroom Allergy (Verified 06/23/24 09:04) Swelling Medications ???Medication ???Instructions ???Recorded ???Confirmed ???Type vits,calcium no.78-iron 1 tab PO DAILY 04/18/15 06/23/24 History fumarate-folic acid 29 mg-1 mg tablet (Prenatabs FA) aspirin 81 mg tablet,delayed 81 mg PO QDAY 01/25/24 06/23/24 Hi story release (Adult Low Dose Aspirin) docusate sodium 100 mg capsule 200 mg PO QDAY PRN constipation 06/23/24 History (Colace) blood sugar diagnostic (Blood #120 ea 04/25/24 06/23/24 Rx Glucose Test strips) blood-glucose meter #1 ea 04/25/24 06/23/24 Rx lancets #200 ea 04/25/24 06/23/24 Rx metformin 500 mg tablet 500 mg PO QHS #30 tabs 06/12/24 Rx Last Menstrual Period: 10/14/23 : No PFSH PFSH Medical History History of pulmonary embolism 39 weeks gestation of Depression Psoriasis Seasonal allergies Family History Mother Heart disease Hypothyroidism Grandmother , great-grandma Breast cancer Social History adopted: No household members: spouse and children number of children: 2 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 current occupational exposures/hazards: No pets and animals: Yes (Not taking care litter box) pets and animals: cat(s) history of recent travel: Yes ([place] in Nov 2023) out of state: Yes out of country: No sexually active: Yes Smoking Status: Former smoker alcohol intake: never substance use type: does not use diet: other well-balanced diet: daily or most days caffeine: Yes eating out: 1-3 times/week during the past year weight has: other details: Lost 30lbs on Wegovy, has gain about 15lbs back what type of physical activity do you participate in: walking frequency: 3-4 times per week duration: < 15 minutes/day angela/cheondoism: None seatbelt use: always do you feel safe at home: Yes 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 Date Name GA/Weeks Outcome Route Bth Weight Gen Labor Lgth Anesthesia Del Locatn Provider FOB Unknown Chemical - 2018 04/06/15 [place] 38 live - full term 8lbs 14oz Male 36 epidural [facility] Summer Svetlana Mobley 01/12/19 [place] 39 live - full term 9lbs 4oz Male 8 epidural [facility] S ummer Coral-Renan Mobley Delivery Date: 04/06/15 Last Updated by: Sujey Hong RN Gained 60lbs, Induced d/t early pre-e Delivery Date: 01/12/19 Last Updated by: Sujey Hong RN Induction d/t size HPI 35WK NST ONLY Details: YUSRA FUENTES is a 29 year old who presents for routine OB visit. OB Visit AUGUST Calculator Estimated Delivery Date Method Current WG Current Estimate 07/20/24 LMP (Certain) 36w 1d Expected Delivery Route/Plan Labor Preferences- CB/BF classes: [] labor support person: [] labor intervention preferences: [] pain management options preferred: [] cut cord/dad catch: [] : [] PP control planned: [] discussed possible routes of delivery and associated risks: [] special requests: [] Specific Issue/Plans Covid status: [] Flu vaccine: [] Tdap vaccine: [] Rhogam: [] LARC form signed: [] Problem list reviewed and updated with the most current plan of care details and appropriate orders placed. Relevant counseling for the gestational age provided. Continue routine care and follow up unless otherwise noted in visit notes/problem list details Initial Weight: 245 lb Date -???-???-???-???-??? -???-???-???-???-??? -???-???- EGA Weight BP Urine Prot -???-???-???-???-??? -???-???-???-???-??? -???-???- Glucose FHR FuHt Pres Dilation -???-???-???-???-??? -???-???-???-???-??? -???-???- Effaced St Visit Note 12/30/23 -???-???-???-???-??? -???-???-???-???-??? -???-???- 11w 0d 245 lb 2 (more content not included)... Normal [facility] Screening beta-hemolytic Str eptococcus cultureOrdered By: Lara Cespedes on 06-23-2024 Group B Streptococcus Culture Group B Beta Streptococcus is not isolated. [facility] Biophysical Prof W/O Non Str eson 06-19-2024 Biophysical Prof W/O Non Stres [facility] Imaging Services [address] [place] [address] Biophysical Prof W/O Non Stres MR#: [id number] Acct: [id number] Name: YUSRA FUENTES Rep #: [id number] : 1995 F 29 From: Otis westbrook MD PCP: Nancy Sam NP-C Status: REG CLI Study: Biophysical Prof W/O Non Stres Date of Exam: 0 06/19/24 Exam# [id number] Ordering Dr: Stephanie Mtz PROCEDURE: BIOPHYSICAL PROF W/O NON STRES 06/19/2024 REASON FOR EXAM: WELL BEING TECHNIQUE: Biophysical profile was obtained. COMPARISON: Comparison is made with prior study dated April 25, 2024. FINDINGS: position: Breech heart rate: 149 beats per minute: Amniotic fluid: Within normal limits. Largest fluid pocket: 5.8 cm x 6.2 cm Amniotic fluid index: 16.7 cm. Placenta location: Anterior and not low-lying. Placenta grade: 2 Biophysical profile: Breathing movements 0 Gross body movements: 2 tone: 2 amniotic fluid volume: 2 Total score: 6/8. US/Biophysical Prof W/O Non Stres IMPRESSION: Biophysical profile score: 6/8. Reading Location: [place] [address] CC: CAMPAIGN MARKETING MANAGER-C Nancy Sam; Dr. Stephanie Mtz MD Med Admin: Signed Normal [facility] OB Triage Progress Noteon OB Triage Progress Note [facility] Medical Records Department [address] [facility] [place] [address] OB Triage Progress Note 06/19/24 1437 MR#: [id number] Acct: [id number] Name: YUSRA FUENTES Rep #: [id number] : 1995 29 From: Lara Cespedes CNM PCP: KULDIP Marroquin Status:REG CLI Y DOS: Location: [place] [address] Progress Notes Date of Service: 06/19/24 Progress Note: Patient presents for triage evaluation secondary to NST after BPP 6/8 FHT: 135 Moderate variability reactive no decelerations category I tracing [place]: mild-moderate Contractions Assessment and plan: cervical exam done and 1/thick/posterior per nursing, encourage oral hydration, Reactive NST, reassuring maternal and status patient discharged to home to follow-up in office or return to if contractions worsen. See problem list details for additional plan information. Charges/Coding Multi Select Codes Urinary/Genital Urinary/Genital CPT Codes: 63593-47 non-stress test Interp Assessment Plan (1) Gestational diabetes: COMMENT: nutrition consult, glucose testing fasting 2 hr PP (2) Abnormal glucose level: COMMENT: 3 HR GTT-failed. (3) 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, antepartum: COMMENT: Pt has not had any clotting event that requires anticoagulation during this . She had a suboptimal management for PE so I do not think she had PE. daily ASA, lovenox X 6 wk pp If c section (4) Obesity affecting : QUALIFIERS: Trimester: second trimester Obesity type affecting : unspecified obesity Qualified Code(s): O99.212 - Obesity complicating , second trimester COMMENT: HgB A1C ordered, growth US 32, 36 weeks, bpp weely 34 weeks on (5) Request for sterilization: COMMENT: After this (6) Former smoker: COMMENT: Stopped 2 years ago (7) Supervision of high-risk : QUALIFIERS: Trimester: second trimester Qualified Code(s): O09.92 - Supervision of high risk , unspecified, second trimester COMMENT: PRR, , AUGUST 07/20/24, PC: Lora Hogan, : Itz (8) : QUALIFIERS: Weeks of gestation: 34 weeks Qualified Code(s): Z3A.34 - 34 weeks gestation of COMMENT: Carrier neg. , NIPT low risk. Nl anatomy (9) H/O pre-eclampsia in prior , currently : COMMENT: with first , Pre-e baseline labs ordered-asa at 12 weeks (10) Ovarian cyst: QUALIFIERS: Laterality: unspecified laterality Qualified Code(s): N83.209 - Unspecified ovarian cyst, unspecified side COMMENT: on L ovary + Fibroids (11) Anxiety and depression: (12) Seasonal allergies: (13) High cholesterol: COMMENT: Stopped Statin in October - controlling with diet exercise (14) NST (non-stress test) reactive: COMMENT: had BPP 08/27. now 10/29 d/c home 06/19/24 1441 Date Lara Cespedes CNM Cosigner Signature (if applicable): Date _ CC: ARTEM Cespedes; CAMPAIGN MARKETING MANAGER-C Nancy Sam Signed Normal [facility] Biophysical Prof W/O Non Str eson 06-12-2024 Biophysical Prof W/O Non Stres [facility] Imaging Services [address] [place] [address] Biophysical Prof W/O Non Stres MR#: [id number] Acct: [id number] Name: YUSRA FUENTES Rep #: [id number] : 1995 F 29 From: León Gallo MD PCP: KULDIP Marroquin Status: REG CLI Study: Biophysical Prof W/O Non Stres Date of Exam: 0 06/12/24 Exam# [id number] Ordering Dr: Stephanie Mtz EXAM: Biophysical Prof w/o nonstress CLINICAL HISTORY: well-being TECHNIQUE: Biophysical Prof w/o nonstress ultrasound FINDINGS: Single live intrauterine . age by LMP 34 weeks 4 days, AUGUST 07/20/2024. heart rate 132 beats per minute. Presentation cephalic. CHA 20 cm, largest pocket 7.4 cm. Anterior placenta is not low lying. Grade 2. Breathing movements: 2 out of 2 Gross body movements: 2/2 tone: 2/2 Amniotic fluid volume: 2/2 US/Biophysical Prof W/O Non Stres IMPRESSION: Single live intrauterine as above. Biophysical profile 8 out of a total of 8. Reading Location: [facility] CC: KULDIP Sam; Dr. Stephanie Mtz MD Med Admin: Signed Normal [facility] Stranding Supervisor Office Visit Reporton 06-12-2024 Stranding Supervisor Office Visit Report [facility] [address], [address] [place] [address] OFFICE VISIT Date of Service: 06/12/24 MR#: [id number] Acct: [id number] Name: YUSRA FUENTES Rep #: [id number] : 1995 Provider: Dr. Britany Burns DO Age/Sex: 29/F Location: [facility] [place] Status: Signed Intake Vital Signs 12/30/23 10:08 05/29/24 15:15 06/12/24 09:22 06/12/24 09:24 Height 5 ft 4 in 5 ft 4 in 5 ft 4 in 5 ft 4 in Weight: 271 lb 6 oz BMI 46.5 BP 123/68 H Intake Visit Reasons: 24 WK OB Customer Service Professional Required: No Is patient in pain?: No Allergies mushroom Allergy (Verified 06/12/24 09:22) Swelling Medications ???Medication ???Instructions ???Recorded ???Confirmed ???Type vits,calcium no.78-iron 1 tab PO DAILY 04/18/15 06/12/24 History fumarate-folic acid 29 mg-1 mg tablet (Prenatabs FA) aspirin 81 mg tablet,delayed 81 mg PO QDAY 01/25/24 06/12/24 Hi story release (Adult Low Dose Aspirin) docusate sodium 100 mg capsule 100 mg PO QDAY PRN 01/25/24 History (Colace) blood sugar diagnostic (Blood #120 ea 04/25/24 06/12/24 Rx Glucose Test strips) blood-glucose meter #1 ea 04/25/24 06/12/24 Rx lancets #200 ea 04/25/24 06/12/24 Rx metformin 500 mg tablet 500 mg PO QHS #30 tabs 06/12/24 Rx Last Menstrual Period: 10/14/23 Zika: Zika virus screening: Negative : No PFSH PFSH Medical History History of pulmonary embolism 39 weeks gestation of Depression Psoriasis Seasonal allergies Family History Mother Heart disease Hypothyroidism Grandmother , great-grandma Breast cancer Social History adopted: No household members: spouse and children number of children: 2 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 current occupational exposures/hazards: No pets and animals: Yes (Not taking care litter box) pets and animals: cat(s) history of recent travel: Yes ([place] in Nov 2023) out of state: Yes out of country: No sexually active: Yes Smoking Status: Former smoker alcohol intake: never substance use type: does not use diet: other well-balanced diet: daily or most days caffeine: Yes eating out: 1-3 times/week during the past year weight has: other details: Lost 30lbs on Wegovy, has gain about 15lbs back what type of physical activity do you participate in: walking frequency: 3-4 times per week duration: < 15 minutes/day angela/cheondoism: None seatbelt use: always do you feel safe at home: Yes 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 Date Name GA/Weeks Outcome Route Bth Weight Infant Gen Labor Lgth Anesthesia Del Locatn Provider FOB Unknown Chemical - 2018 04/06/15 [place] 38 live - full term 8lbs 14oz Male 36 epidural [facility] Summer Coral-Renan Mobley 01/12/19 [place] 39 live - full term 9lbs 4oz Male 8 epidural [facility] S ummer Coral-Renan Itz Delivery Date: 04/06/15 Last Updated by: Sujey Hong RN Gained 60lbs, Induced d/t early pre-e Delivery Date: 01/12/19 Last Updated by: Sujey Hong RN Induction d/t size HPI 24 WK OB Details: YUSRA FUENTES is a 29 year old who presents for routine OB visit. OB Visit AUGUST Calculator Estimated Delivery Date Method Current WG Current Estimate 07/20/24 LMP (Certain) 34w 4d Expected Delivery Route/Plan Labor Preferences- CB/BF classes: [] labor support person: [] labor intervention preferences: [] pain management options preferred: [] cut cord/dad catch: [] : [] PP control planned: [] discussed possible routes of delivery and associated risks: [] special requests: [] Specific Issue/Plans Covid status: [] Flu vaccine: [] Tdap vaccine: [] Rhogam: [] LARC form signed: [] Problem list reviewed and updated with the most current plan of care details and appropriate orders placed. Relevant counseling for the gestational age provided. Continue routine care and follow up unless otherwise noted in visit notes/problem list details Initial Weight: 245 lb Date -???-???-???-???-??? -???-???-???-???-??? -???-???- EGA Weight BP Urine Prot -???-???-???-???-??? -???-???-???-???-??? -???-???- Glucose FHR FuHt Pres Dilation -???-???-???-???-??? -???-???-???-???-??? -???-???- Effaced St Visit Note 12/30/23 (more content not included)... Normal [facility] - Chemistry and C hemistry - challengeOrdered By: Lara Cespedes on 05-29-2024 Glucose Ql (U) Negative [facility] - UrinalysisOrder ed By: Lara Cespedes on 05-29-2024 Protein Ql (U) Negative [facility] Stranding Supervisor Office Visit Reporton 05-29-2024 Stranding Supervisor Office Visit Report [facility] [address], [address] [place] [address] OFFICE VISIT Date of Service: 05/29/24 MR#: [id number] Acct: [id number] Name: EDGARDOAMBROSEYUSRA Rep #: [id number] : 1995 Provider: ARTEM Albert ams Age/Sex: 29/F Location: [facility] [place] Status: Signed with Addenda ADDENDUM by Sneha Banda on 05/29/24 at 1544 Office Procedure Documentation entered by Sneha Banda 05/29/24 15:44: Immunizations Adacel(Tdap Adolesn/Adult)(PF) 2 Lf-(2.5-5-3-5)-5 Lf/0.5 mL IM syringe Performing Provider: Lara Cespedes CNM Performing Location: [facility] Administered by: Sneha Banda on 05/29/24 15:44 Dose Route Admin Location Dispensed Lot Number Expiration Date NDC Man ufacturer 0.5 mL IM Left Deltoid 0.5 mL [id number] 04/21/26 95368-636-80 [employer]P [employer] VIS Given Date VIS Provided VIS Publication Date 05/29/24 Single Vaccine 20 Eligibility Eligibility Date Funding Source Not Applicable Date cc: * Signed Intake Vital Signs 12/30/23 10:08 03/20/24 08:53 05/15/24 13:00 05/29/24 15:15 Height 5 ft 4 in 5 ft 4 in 5 ft 4 in 5 ft 4 in Weight: 267 lb BMI 45.8 BP 138/85 H Intake Visit Reasons: 32 WK OB Chief Complaint: 32 wk OB Is patient in pain?: No Allergies mushroom Allergy (Verified 05/29/24 15:10) Swelling Medications ???Medication ???Instructions ???Recorded ???Confirmed ???Type vits,calcium no.78-iron 1 tab PO DAILY 04/18/15 05/29/24 History fumarate-folic acid 29 mg-1 mg tablet (Prenatabs FA) aspirin 81 mg tablet,delayed 81 mg PO QDAY 01/25/24 05/29/24 Hi story release (Adult Low Dose Aspirin) docusate sodium 100 mg capsule 100 mg PO QDAY PRN 01/25/24 History (Colace) blood sugar diagnostic (Blood #120 ea 04/25/24 05/29/24 Rx Glucose Test strips) blood-glucose meter #1 ea 04/25/24 05/29/24 Rx lancets #200 ea 04/25/24 05/29/24 Rx Last Menstrual Period: 10/14/23 : No PFSH PFSH Medical History History of pulmonary embolism 39 weeks gestation of Depression Psoriasis Seasonal allergies Family History Mother Heart disease Hypothyroidism Grandmother , great-grandma Breast cancer Social History adopted: No household members: spouse and children number of children: 2 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 current occupational exposures/hazards: No pets and animals: Yes (Not taking care litter box) pets and animals: cat(s) history of recent travel: Yes ([place] in Nov 2023) out of state: Yes out of country: No sexually active: Yes Smoking Status: Former smoker alcohol intake: never substance use type: does not use diet: other well-balanced diet: daily or most days caffeine: Yes eating out: 1-3 times/week during the past year weight has: other details: Lost 30lbs on Wegovy, has gain about 15lbs back what type of physical activity do you participate in: walking frequency: 3-4 times per week duration: < 15 minutes/day angela/cheondoism: None seatbelt use: always do you feel safe at home: Yes 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 Date Name GA/Weeks Outcome Route Bth Weight Gen Labor Lgth Anesthesia Del Locatn Provider FOB Unknown Chemical - 201704/06/15 [place] 38 live - full term 8lbs 14oz Male 36 epidural [facility] Summer Svetlana Mobley 01/12/19 [place] 39 live - full term 9lbs 4oz Male 8 epidural [facility] S ummer Svetlana Mobley Delivery Date: 04/06/15 Last Updated by: Sujey Hong RN Gained 60lbs, Induced d/t early pre-e Delivery Date: 01/12/19 Last Updated by: Sujey Hong RN Induction d/t size HPI 32 WK OB Details: YUSRA FUENTES is a 29 year old who presents for routine OB visit. OB Visit AUGUST Calculator Estimated Delivery Date Method Current WG Current Estimate 07/20/24 LMP (Certain) 32w 4d Expected Delivery Route/Plan Labor Preferences- CB/BF classes: [] labor support person: [] labor intervention preferences: [] pain management options preferred: [] cut cord/dad catch: [] : [] PP control planned: [] discussed possible routes of delivery and associated risks: [] special requests: [] Specific Issue/Plans Covid status: [] Fl (more content not included)... Normal [facility] OB Limited With Biometricson 05-23-2024 OB Limited With Biometrics [facility] Imaging Services [address] [place], [place] [id number] OB Limited With Biometrics MR#: [id number] Acct: [id number] Name: YUSRA FUENTES Rep #: [id number] : 1995 F 29 From: Otis westbrook MD PCP: KULDIP Marroquin Status: REG CLI Study: OB Limited With Biometrics Date of Exam: 05/23 Exam# [id number] Ordering Dr: Stephanie Mtz PROCEDURE: OB LIMITED WITH BIOMETRICS REASON FOR EXAM: growth. COMPARISON: Comparison is made with prior study dated March 10, 2024 FINDINGS Number: 1 Position: Vertex Placental Position: Anterior and not low-lying. Placental Abnormalities: None. DIMENSIONS: Biparietal Diameter: 8.5 cm: 34 weeks and 0 days: 94 percentile/ Head Circumference: 30.7 cm: 34 weeks and 1 day: 80 percentile/ Abdominal Circumference: 29.8 cm: 33 weeks and 5 days: 94 percentile/ Femur Length: 6.11 cm: 31 weeks and 5 days: 35th percentile/ ESTIMATED WEIGHT: 2162 g plus/-324 g ESTIMATED WEIGHT PERCENTILE (24+ weeks): 86 ESTIMATED GESTATIONAL AGE: Baseline: 31 weeks and 5 days By Ultrasound: 31 weeks and 4 days ESTIMATED DATE OF DELIVERY: Baseline: July 20, 2024 By Ultrasound: July 21, 2024 BIOPHYSICAL ASSESSMENT: Amniotic Fluid Volume: Subjectively normal. Amniotic Fluid Index: 16.6 (8-24 cm normal range) Cardiac Motion: 137 beats per minute (average) Trunk and Limb Motion: Present. MATERNAL ANATOMY: Adnexa: Neither maternal ovary is successfully identified. US/OB Limited With Biometrics IMPRESSION: Single live intrauterine gestation with a mean gestational age of 31 weeks and 4 days. Reading Location: [id number] CC: KULDIP Sam; Dr. Stephanie Mtz MD Med Admin: Signed Normal [facility] - Chemistry and C hemistry - challengeOrdered By: Lara Cespedes on 05-15-2024 Glucose Ql (U) Negative [facility] - UrinalysisOrder ed By: Lara Cespedes on 05-15-2024 Protein Ql (U) Negative [facility] Stranding Supervisor Office Visit Reporton 05-15-2024 Stranding Supervisor Office Visit Report [facility] [address], [address] [place] [address] OFFICE VISIT Date of Service: 05/15/24 MR#: [id number] Acct: [id number] Name: YUSRA FUENTES Rep #: [id number] : 1995 Provider: ARTEM Albert ams Age/Sex: 29/F Location: [facility] [place] Status: Signed Intake Vital Signs 12/30/23 10:08 04/17/24 08:26 05/15/24 13:00 Height 5 ft 4 in 5 ft 4 in 5 ft 4 in Weight: 264 lb 6 oz BMI 45.3 BP 133/78 H Intake Visit Reasons: 30 WK OB Customer Service Professional Required: No Allergies mushroom Allergy (Verified 05/15/24 12:59) Swelling Medications ???Medication ???Instructions ???Recorded ???Confirmed ???Type vits,calcium no.78-iron 1 tab PO DAILY 04/18/15 05/15/24 History fumarate-folic acid 29 mg-1 mg tablet (Prenatabs FA) aspirin 81 mg tablet,delayed 81 mg PO QDAY 01/25/24 05/15/24 Hi story release (Adult Low Dose Aspirin) docusate sodium 100 mg capsule 100 mg PO QDAY PRN 01/25/24 History (Colace) blood sugar diagnostic (Blood #120 ea 04/25/24 05/15/24 Rx Glucose Test strips) blood-glucose meter #1 ea 04/25/24 05/15/24 Rx lancets #200 ea 04/25/24 05/15/24 Rx Last Menstrual Period: 10/14/23 Zika: Zika virus screening: Negative : No PFSH PFSH Medical History History of pulmonary embolism 39 weeks gestation of Depression Psoriasis Seasonal allergies Family History Mother Heart disease Hypothyroidism Grandmother , great-grandma Breast cancer Social History adopted: No household members: spouse and children number of children: 2 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 current occupational exposures/hazards: No pets and animals: Yes (Not taking care litter box) pets and animals: cat(s) history of recent travel: Yes ([place] in Nov 2023) out of state: Yes out of country: No sexually active: Yes Smoking Status: Former smoker alcohol intake: never substance use type: does not use diet: other well-balanced diet: daily or most days caffeine: Yes eating out: 1-3 times/week during the past year weight has: other details: Lost 30lbs on Wegovy, has gain about 15lbs back what type of physical activity do you participate in: walking frequency: 3-4 times per week duration: < 15 minutes/day angela/cheondoism: None seatbelt use: always do you feel safe at home: Yes 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 Date Name GA/Weeks Outcome Route Bth Weight Infant Gen Labor Lgth Anesthesia Del Locatn Provider FOB Unknown Chemical - 2018 04/06/15 [place] 38 live - full term 8lbs 14oz Male 36 epidural [facility] Summer Moncada-Renan Itz 01/12/19 [place] 39 live - full term 9lbs 4oz Male 8 epidural [facility] S lelamer Moncada-Renannissa Mobley Delivery Date: 04/06/15 Last Updated by: Sujey Hong RN Gained 60lbs, Induced d/t early pre-e Delivery Date: 01/12/19 Last Updated by: Sujey Hong RN Induction d/t size HPI 30 WK OB Details: YUSRA FUENTES is a 29 year old who presents for routine OB visit. OB Visit AUGUST Calculator Estimated Delivery Date Method Current WG Current Estimate 07/20/24 LMP (Certain) 30w 4d Expected Delivery Route/Plan Labor Preferences- CB/BF classes: [] labor support person: [] labor intervention preferences: [] pain management options preferred: [] cut cord/dad catch: [] : [] PP control planned: [] discussed possible routes of delivery and associated risks: [] special requests: [] Specific Issue/Plans Covid status: [] Flu vaccine: [] Tdap vaccine: [] Rhogam: [] LARC form signed: [] Problem list reviewed and updated with the most current plan of care details and appropriate orders placed. Relevant counseling for the gestational age provided. Continue routine care and follow up unless otherwise noted in visit notes/problem list details Initial Weight: 245 lb Date -???-???-???-???-??? -???-???-???-???-??? -???-???- EGA Weight BP Urine Prot -???-???-???-???-??? -???-???-???-???-??? -???-???- Glucose FHR FuHt Pres Dilation -???-???-???-???-??? -???-???-???-???-??? -???-???- Effaced St Visit Note 12/30/23 -???-???-???-???-??? -???-???-???-???-??? -???-???- 11w 0d 245 lb 2 oz (+2 oz) 127/77 -???-???-???-???-??? -???-???-???-???-??? -???-???- 16 (more content not included)... Normal [facility] Gestational GTT 3HR 100gon 0 04-25-2024 3HR GTT- GEST. High [facility] Comment on above: Order Comment: Y Result Comment: FAST ING 79 Col: 04/25/24 0655 GLUCOSE TOLERANCE TEST FOR Reference Interval GESTATIONAL DIABETES Fasting <105 mg/dL 1 hour <190 mg/dl 2 hour <165 mg/dl 3 hour <145 mg/dl 1 HR GLU 198 H Col: 04/25/24 0757 2 HR GLU 166 H Col: 04/25/24 0855 3 HR GLU 50 Col: 04/25/24 0955 Performed By: #### L 501.080 #### [facility] [address] [place] [address]. [place], [place], [address] Glucose tolerance 3 hours ge stational panelOrdered By: Santa Adair on 04-25-2024 Gestational Glucose Tolerance Test See comment [facility] Comment on above: FASTING 79 Col: 02/0 07/14 0655GLUCOSE TOLERANCE TEST FOR Reference Interval GESTATIONAL DIABETES Fasting <105 mg/dL 1 hour <190 mg/dl 2 hour <165 mg/dl 3 hour <145 mg/dl 1 HR GLU 198 H Col: 04/25/24 0757 2 HR GLU 166 H Col: 04/25/24 0855 3 HR GLU 50 Col: 04/25/24 0955 Absolute neutrophil countOrd ered By: Stephanie Mtz on 04-17-2024 Neutrophils (Bld) [#/Vol] 7.2 10*3/uL 2.0-7.7 [facility] Basophil percentageOrdered B y: Stephanie Mtz on 04-17-2024 Basophils/100 WBC (Bld) 0.3 % 0-1 [facility] CBC W/Diff, Automatedon 01-2 Absolute Lymph 1.20 X10 3/uL Normal 0.83-4.51 [facility] Comment on above: Performed By: #### L 501.0250, L509.8000, L3890.6005, L100.0100 #### [facility] [address] [place], [address] Absolute Neut 7.2 X10 3/uL Normal 2.0-7.7 [facility] Comment on above: Performed By: #### L 501.0250, L509.8000, L3890.6005, L100.0100 #### [facility] [address] [place], [address] Basophils/100 WBC (Bld) 0.3 % Normal 0-1 [facility] Comment on above: Performed By: #### L 501.0250, L509.8000, L3890.6005, L100.0100 #### [facility] [address] [place], [address] Eosinophils/100 WBC (Bld) 0.9 % Normal 0-5 [facility] Comment on above: Performed By: #### L 501.0250, L509.8000, L3890.6005, L100.0100 #### [facility] [address] [place], [address] Erythrocyte distribution width (RBC) [Ratio] 13.2 % Normal 11.6-14.6 [facility] Comment on above: Performed By: #### L 501.0250, L509.8000, L3890.6005, L100.0100 #### [facility] [address] [place], [address] Hematocrit (Bld) [Volume fraction] 38.5 % Normal 37-47 [facility] Comment on above: Performed By: #### L 501.0250, L509.8000, L3890.6005, L100.0100 #### [facility] [address] [place], [address] Hemoglobin (Bld) [Mass/Vol] 12.6 g/dL Normal 12.0-15.0 [facility] Comment on above: Performed By: #### L 501.0250, L509.8000, L3890.6005, L100.0100 #### [facility] [address] [place], [address] IG% 0.600 Normal 0.0-0.9 [facility] Comment on above: Result Comment: IG% - Immature Granulocytes (promyelocytes, myelocytes and metamyelocytes) > 1% indicates that a LEFT SHIFT is Present. Performed By: #### L 501.0250, L509.8000, L3890.6005, L100.0100 #### [facility] [address] [place], [address] Lymphocytes/100 WBC (Bld) 13.3 % Low 19-41 [facility] Comment on above: Performed By: #### L 501.0250, L509.8000, L3890.6005, L100.0100 #### [facility] [address] [place], [address] MCH (RBC) [Entitic mass] 29.2 pg Normal 27.0-32.0 [facility] Comment on above: Performed By: #### L 501.0250, L509.8000, L3890.6005, L100.0100 #### [facility] [address] [place], [address] MCHC (RBC) [Mass/Vol] 32.7 g/dL Normal 32-36 [facility] Comment on above: Performed By: #### L 501.0250, L509.8000, L3890.6005, L100.0100 #### [facility] [address] [place], [address] MCV (RBC) [Entitic vol] 89.3 fL Normal 81-99 [facility] Comment on above: Performed By: #### L 501.0250, L509.8000, L3890.6005, L100.0100 #### [facility] [address] [place], [address] Monocytes/100 WBC (Bld) 5.3 % Normal 0-10 [facility] Comment on above: Performed By: #### L 501.0250, L509.8000, L3890.6005, L100.0100 #### [facility] [address] [place], [address] Neutrophils/100 WBC (Bld) 79.6 % High 47-70 [facility] Comment on above: Performed By: #### L 501.0250, L509.8000, L3890.6005, L100.0100 #### [facility] [address] [place], [address] Nucleated RBC (Bld) [#/Vol] 0 10*3/uL Normal 0-5 [facility] Comment on above: Performed By: #### L 501.0250, L509.8000, L3890.6005, L100.0100 #### [facility] [address] [place], [address] Platelet mean volume (Bld) [Entitic vol] 11.0 fL Normal 6.2-12.0 [facility] Comment on above: Performed By: #### L 501.0250, L509.8000, L3890.6005, L100.0100 #### [facility] [address] [place], [address] Platelets (Bld) [#/Vol] 258 10*3/uL Normal 150-450 [facility] Comment on above: Performed By: #### L 501.0250, L509.8000, L3890.6005, L100.0100 #### [facility] [address] [place], [address] RBC (Bld) [#/Vol] 4.31 10*6/uL Normal 4.2-5.4 [facility] Comment on above: Performed By: #### L 501.0250, L509.8000, L3890.6005, L100.0100 #### [facility] [address] [place], [address] RDW SD 43.4 fl Normal 35.1-43.9 [facility] Comment on above: Performed By: #### L 501.0250, L509.8000, L3890.6005, L100.0100 #### [facility] [address] [place], [address] WBC (Bld) [#/Vol] 9.0 10*3/uL Normal 4.4-11.0 [facility] Comment on above: Performed By: #### L 501.0250, L509.8000, L3890.6005, L100.0100 #### [facility] [address] [place], [address] Eosinophil percentageOrdered By: Stephanie Mtz on 04-17-2024 Eosinophils/100 WBC (Bld) 0.9 % 0-5 [facility] Erythrocyte distribution wid th ratioOrdered By: Stephanie Mtz on 04-17-2024 Erythrocyte distribution width (RBC) [Ratio] 13.2 % 11.6-14.6 [facility] Erythrocyte distribution wid th standard deviationOrdered By: Stephanie Mtz on 04-17-2024 Erythrocyte distribution width (RBC) [Entitic vol] 43.4 fL 35.1-43.9 [facility] Glucose 1 Hr post 50 g gluco se PO [Mass/Vol]Ordered By: Stephanie Mtz on 04-17-2024 Glucose [Mass/Vol] 151 mg/dL High 70-140 [facility] Glucose Challenge Gest 1H 50 lorri 04-17-2024 GLU GEST 50g 1H 151 mg/dL High 70-140 [facility] Comment on above: Performed By: #### L 501.0250, L509.8000, L3890.6005, L100.0100 #### [facility] [address] [place], [place], [address] HIV - WCHon 04-17-2024 HIV Non-Reactive Normal Nonreactive [facility] Comment on above: Performed By: #### L 501.0250, L509.8000, L3890.6005, L100.0100 #### [facility] [address] [place], [place], [address] HIV 1+2 Ab+HIV1 p24 Ag IA Ql Ordered By: Stephanie Mtz on 04-17-2024 HIV (1&2) Antibody Non-Reactive Nonreactive [facility] Hematocrit Auto (Bld) [Volum e fraction]Ordered By: Stephanie Mtz on 04-17-2024 Hematocrit (Bld) [Volume fraction] 38.5 % 37-47 [facility] Hemoglobin measurementOrdere d By: Stephanie Mtz on 04-17-2024 Hemoglobin (Bld) [Mass/Vol] 12.6 g/dL 12.0-15.0 [facility] Immature granulocytes/100 WB C Auto (Bld)Ordered By: Stephanie Mtz on 04-17-2024 Immature granulocytes/100 WBC (Bld) 0.600 % 0.0-0.9 [facility] Comment on above: IG% - Immature Granu locytes (promyelocytes, myelocytes and metamyelocytes) > 1% indicates that a LEFT SHIFT is Present. L509.8000on 04-17-2024 Syphilis Abs Non-Reactive Normal [facility] Comment on above: Performed By: #### L 501.0250, L509.8000, L3890.6005, L100.0100 #### [facility] [address] [place], [place], [address] Laboratory - Chemistry and C hemistry - challengeon 04-17-2024 Glucose Ql (U) Negative [facility] - Urinalysison Protein Ql (U) Trace [facility] Lymphocytes Auto (Unsp spec) [#/Vol]Ordered By: Stephanie Mtz on 04-17-2024 Lymphocytes (Bld) [#/Vol] 1.20 10*3/uL 0.83-4.51 [facility] Lymphocytes/100 WBC Auto (Un sp spec)Ordered By: Stephanie Mtz on 04-17-2024 Lymphocytes/100 WBC (Bld) 13.3 % Low 19-41 [facility] MCV (mean corpuscular volume ) determinationOrdered By: Stephanie Mtz on 04-17-2024 MCV (RBC) [Entitic vol] 89.3 fL 81-99 [facility] Mean corpuscular hemoglobin (MCH) determinationOrdered By: Stephanie Mtz on 04-17-2024 MCH (RBC) [Entitic mass] 29.2 pg 27.0-32.0 [facility] Mean corpuscular hemoglobin concentration (MCHC) determinationOrdered By: Stephanie Mtz on 04-17-2024 MCHC (RBC) [Mass/Vol] 32.7 g/dL 32-36 [facility] Mean platelet volume determi nationOrdered By: Stephanie Mtz on 04-17-2024 Platelet mean volume (Bld) [Entitic vol] 11.0 fL 6.2-12.0 [facility] Monocyte percentageOrdered B y: Stephanie Mtz on 04-17-2024 Monocytes/100 WBC (Bld) 5.3 % 0-10 [facility] Neutrophil percentageOrdered By: Stephanie Mtz on 04-17-2024 Neutrophils/100 WBC (Bld) 79.6 % High 47-70 [facility] Nucleated red blood cell per centageOrdered By: Stephanie Mtz on 04-17-2024 Nucleated RBC/100 WBC (Bld) [Ratio] 0 % 0-5 [facility] Stranding Supervisor Office Visit Reporton 04-17-2024 Stranding Supervisor Office Visit Report [facility] [address], [address] [place] [address] OFFICE VISIT Date of Service: 04/17/24 MR#: [id number] Acct: [id number] Name: YUSRA FUENTES Rep #: [id number] : 1995 Provider: Dr. Stephanie luna MD Age/Sex: 29/F Location: [facility] Status: Signed Intake Vital Signs 12/30/23 10:08 03/20/24 08:53 04/17/24 08:26 Height 5 ft 4 in 5 ft 4 in 5 ft 4 in Weight: 264 lb 8 oz BMI 45.3 BP 126/79 H Intake Visit Reasons: 26 WK OB Customer Service Professional Required: No Is patient in pain?: No Feel stressed/tense/nervo us/anxious/difficult y sleeping: not at all Allergies mushroom Allergy (Verified 04/17/24 08:26) Swelling Medications ???Medication ???Instructions ???Recorded ???Confirmed ???Type vits,calcium no.78-iron 1 tab PO DAILY 04/18/15 04/17/24 History fumarate-folic acid 29 mg-1 mg tablet (Prenatabs FA) aspirin 81 mg tablet,delayed 81 mg PO QDAY 01/25/24 04/17/24 History release (Adult Low Dose Aspirin) docusate sodium 100 mg capsule 100 mg PO QDAY PRN 01/25/24 04/17/24 History (Colace) Last Menstrual Period: 10/14/23 Zika: Zika virus screening: Negative : No PFSH PFSH Medical History History of pulmonary embolism 39 weeks gestation of Depression Psoriasis Seasonal allergies Family History Mother Heart disease Hypothyroidism Grandmother , great-grandma Breast cancer Social History adopted: No household members: spouse and children number of children: 2 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 current occupational exposures/hazards: No pets and animals: Yes (Not taking care litter box) pets and animals: cat(s) history of recent travel: Yes ([place] in Sept 2024) out of state: Yes out of country: No sexually active: Yes Smoking Status: Former smoker alcohol intake: never substance use type: does not use diet: other well-balanced diet: daily or most days caffeine: Yes eating out: 1-3 times/week during the past year weight has: other details: Lost 30lbs on Wegovy, has gain about 15lbs back what type of physical activity do you participate in: walking frequency: 3-4 times per week duration: < 15 minutes/day angela/cheondoism: None seatbelt use: always do you feel safe at home: Yes 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 Date Name GA/Weeks Outcome Route Bth Weight Gen Labor Lgth Anesthesia Del Locatn Provider FOB Unknown Chemical - 2018 04/06/15 [place] 38 live - full term 8lbs 14oz Male 36 epidural [facility] Summer [place]-Renan Itz 01/12/19 [place] 39 live - full term 9lbs 4oz Male 8 epidural [facility] S mer [place]-Renan Itz Delivery Date: 04/06/15 Last Updated by: Sujey Hong RN Gained 60lbs, Induced d/t early pre-e Delivery Date: 01/12/19 Last Updated by: Sujey Hong RN Induction d/t size HPI 26 WK OB Details: YUSRA FUENTES is a 29 year old who presents for routine OB visit. OB Visit AUGUST Calculator Estimated Delivery Date Method Current WG Current Estimate 07/20/24 LMP (Certain) 26w 4d Expected Delivery Route/Plan Labor Preferences- CB/BF classes: [] labor support person: [] labor intervention preferences: [] pain management options preferred: [] cut cord/dad catch: [] : [] PP control planned: [] discussed possible routes of delivery and associated risks: [] special requests: [] Specific Issue/Plans Covid status: [] Flu vaccine: [] Tdap vaccine: [] Rhogam: [] LARC form signed: [] Problem list reviewed and updated with the most current plan of care details and appropriate orders placed. Relevant counseling for the gestational age provided. Continue routine care and follow up unless otherwise noted in visit notes/problem list details Initial Weight: 245 lb Date -???-???-???-???-??? -???-???-???-???-??? -???-???- EGA Weight BP Urine Prot -???-???-???-???-??? -???-???-???-???-??? -???-???- Glucose FHR FuHt Pres Dilation -???-???-???-???-??? -???-???-???-???-??? -???-???- Effaced St Visit Note 12/30/23 -???-???-???-???-??? -???-???-???-???-??? -???-???- 11w 0d 245 lb 2 oz (+2 oz) 127/77 -???-???-???-???-??? -???-???-???-???-??? -???-???- 160 -???-???-???-???-??? -???-???-???-???-??? -???-???- KW- CRL cons with dates. a (more content not included)... Normal [facility] Platelet countOrdered By: Yoselin Mtz on 04-17-2024 Platelets (Bld) [#/Vol] 258 10*3/uL 150-450 [facility] RBC Auto (Bld) [#/Vol]Ordere d By: Stephanie Mtz on 04-17-2024 RBC (Bld) [#/Vol] 4.31 10*6/uL 4.2-5.4 [facility] Treponema sp Ab Ql (S)Ordere d By: Stephanie Mtz on 04-17-2024 Syphilis Total Antibody Non-Reactive [facility] White blood cell (WBC) count Ordered By: Stephanie Mtz on 04-17-2024 WBC (Bld) [#/Vol] 9.0 10*3/uL 4.4-11.0 [facility] - Chemistry and C hemistry - challengeOrdered By: Britany Hathaway on 03-20-2024 Glucose Ql (U) Negative [facility] - UrinalysisOrder ed By: Britany Hathaway on 03-20-2024 Protein Ql (U) Negative [facility] Stranding Supervisor Office Visit Reporton 03-20-2024 Stranding Supervisor Office Visit Report [facility] [address], [address] [place] [address] OFFICE VISIT Date of Service: 03/20/24 MR#: [id number] Acct: [id number] Name: YUSRA FUENTES Kalpesh Rep #: [id number] : 1995 Provider: Dr. Britany Burns DO Age/Sex: 29/F Location: [facility] Status: Signed Intake Vital Signs 12/30/23 10:08 02/28/24 11:41 03/20/24 08:53 03/20/24 08:53 Height 5 ft 4 in 5 ft 4 in 5 ft 4 in 5 ft 4 in Weight: 260 lb 4 oz BMI 44.6 BP 122/70 H Intake Visit Reasons: 22 WK OB Customer Service Professional Required: No Is patient in pain?: No Allergies mushroom Allergy (Verified 03/20/24 08:53) Swelling Medications ???Medication ???Instructions ???Recorded ???Confirmed ???Type vits,calcium no.78-iron 1 tab PO DAILY 04/18/15 03/20/24 History fumarate-folic acid 29 mg-1 mg tablet (Prenatabs FA) aspirin 81 mg tablet,delayed 81 mg PO QDAY 01/25/24 03/20/24 History release (Adult Low Dose Aspirin) docusate sodium 100 mg capsule 100 mg PO QDAY PRN 01/25/24 03/20/24 History (Colace) Last Menstrual Period: 10/14/23 Zika: Zika virus screening: Negative : No PFSH PFSH Medical History History of pulmonary embolism 39 weeks gestation of Depression Psoriasis Seasonal allergies Family History Mother Heart disease Hypothyroidism Grandmother , great-grandma Breast cancer Social History adopted: No household members: spouse and children number of children: 2 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 current occupational exposures/hazards: No pets and animals: Yes (Not taking care litter box) pets and animals: cat(s) history of recent travel: Yes ([place] in Nov 2023) out of state: Yes out of country: No sexually active: Yes Smoking Status: Former smoker alcohol intake: never substance use type: does not use diet: other well-balanced diet: daily or most days caffeine: Yes eating out: 1-3 times/week during the past year weight has: other details: Lost 30lbs on Wegov[place], has gain about 15lbs back what type of physical activity do you participate in: walking frequency: 3-4 times per week duration: < 15 minutes/day angela/cheondoism: None seatbelt use: always do you feel safe at home: Yes 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 Date Name GA/Weeks Outcome Route Bth Weight Gen Labor Lgth Anesthesia Del Locatn Provider FOB Unknown Chemical - 2018 04/06/15 [place] 38 live - full term 8lbs 14oz Male 36 epidural [facility] Summer Svetlana Mobley 01/12/19 [place] 39 live - full term 9lbs 4oz Male 8 epidural [facility] S ummer Svetlana Mobley Delivery Date: 04/06/15 Last Updated by: Sujey Hong RN Gained 60lbs, Induced d/t early pre-e Delivery Date: 01/12/19 Last Updated by: Sujey Hong RN Induction d/t size HPI 22 WK OB Details: YUSRA FUENTES is a 29 year old who presents for routine OB visit. OB Visit AUGUST Calculator Estimated Delivery Date Method Current WG Current Estimate 07/20/24 LMP (Certain) 22w 4d Expected Delivery Route/Plan Labor Preferences- CB/BF classes: [] labor support person: [] labor intervention preferences: [] pain management options preferred: [] cut cord/dad catch: [] : [] PP control planned: [] discussed possible routes of delivery and associated risks: [] special requests: [] Specific Issue/Plans Covid status: [] Flu vaccine: [] Tdap vaccine: [] Rhogam: [] LARC form signed: [] Problem list reviewed and updated with the most current plan of care details and appropriate orders placed. Relevant counseling for the gestational age provided. Continue routine care and follow up unless otherwise noted in visit notes/problem list details Initial Weight: Not Recorded Date -???-???-???-???-??? -???-???-???-???-??? -???-???- EGA Weight BP Urine Prot -???-???-???-???-??? -???-???-???-???-??? -???-???- Glucose FHR FuHt Pres Dilation -???-???-???-???-??? -???-???-???-???-??? -???-???- Effaced St Visit Note 12/30/23 -???-???-???-???-??? -???-???-???-???-??? -???-???- 11w 0d 245 lb 2 oz 127/77 -???-???-???-???-??? -???-???-???-???-??? -???-???- 160 -???-???-???-???-??? -???-???-???-???-??? -???-???- KW- CRL cons with dates. accepts nipt. discussed hx PE with p (more content not included)... Normal [facility] OB Anatomy w/ Transvaginalon 03-10-2024 OB Anatomy w/ Transvaginal [facility] [address] [place] [address] OB Anatomy w/ Transvaginal MR#: [id number] Acct: [id number] Name: YUSRA FUENTES Rep #: [id number] : 1995 F 29 From: Sofie Larios MD PCP: Care Physician,No Primary Status: REG CL Study: OB Anatomy w/ Transvaginal Date of Exam: 03/10 Exam# [id number] Ordering Dr: Santa Adair CAMPAIGN MARKETING MANAGER CAMPAIGN MARKETING MANAGER -C [id number] EXAM: US SECOND OR THIRD TRIMESTER , TRANSABDOMINAL CLINICAL INDICATION: anatomy/cervical length TECHNIQUE: Transabdominal obstetrical ultrasound of the maternal pelvis and a second or third trimester with image documentation. COMPARISON: No relevant prior studies available. FINDINGS: FETUS: HEART RATE: 153 bpm. PRESENTATION: Cephalic-variable. PLACENTA: Anterior-fundal. Grade 0. No placenta previa. No abruption. AMNIOTIC FLUID: Unremarkable. Largest vertical pocket 4.6 cm. ANATOMY: cord insertion appears unremarkable. Cerebellum and 4.7 mm mm cisterna magna, 6 mm lateral ventricle, lumbosacral spine, cervical-thoracic spine, three-vessel cord, four-chamber heart, renal fossa, stomach, bladder, profile appear unremarkable. BIOMETRICS GESTATIONAL AGE: AUGUST: 21 weeks 0 days. EFW: 417 g, 55th percentile. BPD: 20 weeks 6 days. HC: 21 weeks 3 days. AC: 21 weeks 5 days. FL: 20 weeks 6 days. MATERNAL: UTERUS: Unremarkable. No myometrial mass. CERVIX: Unremarkable as visualized. The cervix is closed. Estimated to be 5.6 cm in length on transvaginal exam. ADNEXA: Nonvisualized ovaries. FREE FLUID: None. US/OB Anatomy w/ Transvaginal IMPRESSION: Single live intrauterine . No acute abnormality. Symmetric measurements, consistent with 21 weeks 0 days. Electronically Signed: Sofie Larios MD at 1:40 EST , CC: KULDIP Adair; No Primary Care Physician Med Admin: Signed Normal [facility] - Chemistry and C hemistry - challengeon 02-28-2024 Glucose Ql (U) Negative [facility] - Urinalysison Protein Ql (U) Negative [facility] Stranding Supervisor Office Visit Reporton 02-28-2024 Stranding Supervisor Office Visit Report [facility] [address], [address] [place] [address] OFFICE VISIT Date of Service: 02/28/24 MR#: [id number] Acct: [id number] Name: YUSRA FUENTES Rep #: [id number] : 1995 Provider: KULDIP morley Age/Sex: 29/F Location: [facility] [place] Status: Signed Intake Vital Signs 12/30/23 08:54 12/30/23 10:08 01/25/24 13:13 02/28/24 11:39 02/28/24 11:41 Height 5 ft 4 in 5 ft 4 in 5 ft 4 in 5 ft 4 in 5 ft 4 in Weight: 253 lb 8 oz BMI 43.4 BP 139/84 H Intake Visit Reasons: 18 WK OB Customer Service Professional Required: No Is patient in pain?: No Allergies mushroom Allergy (Verified 02/28/24 11:39) Swelling Medications ???Medication ???Instructions ???Recorded ???Confirmed ???Type vits,calcium no.78-iron 1 tab PO DAILY 04/18/15 02/28/24 History fumarate-folic acid 29 mg-1 mg tablet (Prenatabs FA) aspirin 81 mg tablet,delayed 81 mg PO QDAY 01/25/24 02/28/24 History release (Adult Low Dose Aspirin) docusate sodium 100 mg capsule 100 mg PO QDAY PRN 01/25/24 02/28/24 History (Colace) Last Menstrual Period: 10/14/23 Zika: Zika virus screening: Negative : No PFSH PFSH Medical History History of pulmonary embolism 39 weeks gestation of Depression Psoriasis Seasonal allergies Family History Mother Heart disease Hypothyroidism Grandmother , great-grandma Breast cancer Social History adopted: No household members: spouse and children number of children: 2 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 current occupational exposures/hazards: No pets and animals: Yes (Not taking care litter box) pets and animals: cat(s) history of recent travel: Yes ([place] in Nov 2023) out of state: Yes out of country: No sexually active: Yes Smoking Status: Former smoker alcohol intake: never substance use type: does not use diet: other well-balanced diet: daily or most days caffeine: Yes eating out: 1-3 times/week during the past year weight has: other details: Lost 30lbs on Wegovy, has gain about 15lbs back what type of physical activity do you participate in: walking frequency: 3-4 times per week duration: < 15 minutes/day angela/cheondoism: None seatbelt use: always do you feel safe at home: Yes 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 Date Name GA/Weeks Outcome Route Bth Weight Infant Gen Labor Lgth Anesthesia Del Locatn Provider FOB Unknown Chemical - 201704/06/15 [place] 38 live - full term 8lbs 14oz Male 36 epidural [facility] Summer Svetlana Mobley 01/12/19 [place] 39 live - full term 9lbs 4oz Male 8 epidural [facility] S ummer Svetlana Mobley Delivery Date: 01/16/16 Last Updated by: Sujey Hong RN Gained 60lbs, Induced d/t early pre-e Delivery Date: 01/12/19 Last Updated by: Sujey Hong RN Induction d/t size HPI 18 WK OB Details: YUSRA FUENTES is a 29 year old who presents for routine OB visit. OB Visit AUGUST Calculator Estimated Delivery Date Method Current WG Current Estimate 07/20/24 LMP (Certain) 19w 4d Expected Delivery Route/Plan Labor Preferences- CB/BF classes: [] labor support person: [] labor intervention preferences: [] pain management options preferred: [] cut cord/dad catch: [] : [] PP control planned: [] discussed possible routes of delivery and associated risks: [] special requests: [] Specific Issue/Plans Covid status: [] Flu vaccine: [] Tdap vaccine: [] Rhogam: [] LARC form signed: [] Problem list reviewed and updated with the most current plan of care details and appropriate orders placed. Relevant counseling for the gestational age provided. Continue routine care and follow up unless otherwise noted in visit notes/problem list details Initial Weight: Not Recorded Date -???-???-???-???-??? -???-???-???-???-??? -???-???- EGA Weight BP Urine Prot -???-???-???-???-??? -???-???-???-???-??? -???-???- Glucose FHR FuHt Pres Dilation -???-???-???-???-??? -???-???-???-???-??? -???-???- Effaced St Visit Note 12/30/23 -???-???-???-???-??? -???-???-???-???-??? -???-???- 11w 0d 245 lb 2 oz 127/77 -???-???-???-???-??? -???-???-???-???-??? -???-???- 160 -???-???-???-???-??? -???-???-???-???-??? -???-???- KW- CRL cons with dates. accepts nipt. discusse (more content not included)... Normal [facility] Oncology Visit Reporton 110 Oncology Visit Report [facility] [address] 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 She reports that when she was 15, she went to [facility] with chest pain. She was evaluated in the ER, thought to have PE, she was started on some pills which she took for 1 month. She did not see any other doctor after that. Since then she has not had any clotting episode requiring anticoagulants. She has had 2 full-term pregnancies without any clotting problems. 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 current occupational exposures/hazards: No pets and animals: Yes (Not taking care litter box) pets and animals: cat(s) history of recent travel: Yes ([place] in Nov 2023) out of state: Yes out of country: No sexually active: Yes Smoking Status: Former smoker alcohol intake: never substance use type: does not use diet: other well-balanced diet: daily or most days caffeine: Yes eating out: 1-3 times/week during the past year weight has: other details: Lost 30lbs on Wegovy, has gain about 15lbs back what type of physical activity do you participate in: walking frequency: 3-4 times per week duration: < 15 minutes/day angela/cheondoism: None seatbelt use: always do you feel safe at home: Yes 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 Female Reproductive History Menstrual Ab spontaneous: 1 ROS Constitutional Constitutional: Reports systems reviewed and no addt'l complaints, except as documented Eyes Eyes: Reports systems reviewed and no addt'l complaints, except as documented ENT HEENT: Reports systems reviewed and no addt'l complaints, except as documented Cardiovascular Cardiovascular: Reports systems reviewed and no addt'l complaints, except as documented Respiratory/Chest Respiratory/Chest: Reports systems reviewed and no addt'l complaints, except as documented Gastrointestinal Gastrointestinal: Reports systems reviewed and no addt'l complaints, except as documented Genitourinary Genitourinary: Reports systems reviewed and no addt'l complaints, except as documented Musculoskeletal Musculoskeletal: Reports systems reviewed and no addt'l complaints, except as documented Integumentary Integumentary: Reports systems reviewed and no addt'l complaints, except as documented Neurologic Neurologic: Reports systems reviewed and no addt'l complaints, except as documented Psychiatric Psychiatric: Reports systems reviewed and no addt'l complaints, except as documented Endocrine Endocrinology: Reports systems reviewed and no addt'l complaints, except as documented Hematologic/Lymphati c Hematologic/Lymphati c: Reports systems reviewed and no addt'l complaints, except as documented Allergic/Immunologic Allergic/Immunologic : Reports systems reviewed and no addt'l complaints, except as documented Intake Vital Signs 12/30/23 10:08 01/24/24 15:24 01/25/24 13:08 01/25/24 13:12 01/25/24 13:13 Height 5 ft 4 in 5 ft 4 in 5 ft 4 in 5 ft 4 in 5 ft 4 in Weight: 111.385 kg 111.385 kg BMI 42.1 42.1 BP 124/82 H Blood Pressure Location Lt brachial Position Sitting Respiration 18 Pulse 86 Pulse Source Monitor Temp 98.6 F Temperature Source Temporal Artery Pulse Oximetry (%) 97 Oxygen Delivery Method room air Intake Is patient in pain?: Yes Allergies mushroom Allergy (Verified 01/25/24 13:05) Swelling Medications ???Medication ???Instructions ???Recorded ???Confirmed ???Type vits,calcium no.78-iron 1 tab PO DAILY 04/18/15 01/25/24 History fumarate-folic acid 29 mg-1 mg tablet (Prenatabs FA) enoxaparin 40 mg/0.4 mL 40 mg (0.4 mL) subcut QDAY #4 mL 12/30/23 01/25/24 Rx subcutaneous syringe (Lovenox) aspirin 81 mg tablet,delayed 81 mg PO QDAY 01/25/24 01/25/24 History release (Adult Low Dose Aspirin) docusat (more content not included)... Normal [facility] Stranding Supervisor Office Visit Reporton 01-24-2024 Stranding Supervisor Office Visit Report [facility] [address], [address] [place] [address] OFFICE VISIT Date of Service: 01/24/24 MR#: [id number] Acct: [id number] Name: YUSRA FUENTES Rep #: [id number] : 1995 Provider: Dr. Stephanie luna MD Age/Sex: 29/F Location: [facility] Status: Signed Intake Vital Signs 12/30/23 10:08 01/24/24 15:18 01/24/24 15:24 Height 5 ft 4 in 5 ft 4 in 5 ft 4 in Weight: 243 lb BMI 41.7 BP 122/82 H Intake Visit Reasons: 15wk OB Customer Service Professional Required: No Is patient in pain?: No Feel stressed/tense/nervo us/anxious/difficult y sleeping: not at all Allergies mushroom Allergy (Verified 01/24/24 15:18) Swelling Medications ???Medication ???Instructions ???Recorded ???Confirmed ???Type vits,calcium no.78-iron 1 tab PO DAILY 04/18/15 01/24/24 History fumarate-folic acid 29 mg-1 mg tablet (Prenatabs FA) bupropion HCl 150 mg 24 hr tablet, 150 mg PO QAM #30 tabs 12/30/23 01/24/24 Rx extended release (Wellbutrin XL) enoxaparin 40 mg/0.4 mL 40 mg (0.4 mL) subcut QDAY #4 mL 12/30/23 01/24/24 Rx subcutaneous syringe (Lovenox) Last Menstrual Period: 10/14/23 Zika: Zika virus screening: Negative : No Have you fallen in the past year?: No PFSH PFSH Medical History 39 weeks gestation of Depression Psoriasis Seasonal allergies Family History Mother Heart disease Hypothyroidism Social History adopted: No household members: spouse and children number of children: 2 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 current occupational exposures/hazards: No pets and animals: Yes (Not taking care litter box) pets and animals: cat(s) history of recent travel: Yes ([place] in Nov 2023) out of state: Yes out of country: No sexually active: Yes Smoking Status: Former smoker alcohol intake: never substance use type: does not use diet: other well-balanced diet: daily or most days caffeine: Yes eating out: 1-3 times/week during the past year weight has: other details: Lost 30lbs on Wegovy, has gain about 15lbs back what type of physical activity do you participate in: walking frequency: 3-4 times per week duration: < 15 minutes/day angela/cheondoism: None seatbelt use: always do you feel safe at home: Yes 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 Date Name GA/Weeks Outcome Route Bth Weight Infant Gen Labor Lgth Anesthesia Del Locatn Provider FOB Unknown Chemical - 2018 04/06/15 [place] 38 live - full term 8lbs 14oz Male 36 epidural [facility] Summer Svetlana Mobley 01/12/19 [place] 39 live - full term 9lbs 4oz Male 8 epidural [facility] S [place] Svetlana Mobley Delivery Date: 04/06/15 Last Updated by: Sujey Hong RN Gained 60lbs, Induced d/t early pre-e Delivery Date: 01/12/19 Last Updated by: Sujey Hong RN Induction d/t size HPI 15wk OB Details: YUSRA FUENTES is a 29 year old who presents for routine OB visit. OB Visit AUGUST Calculator Estimated Delivery Date Method Current WG Current Estimate 07/20/24 LMP (Certain) 14w 4d Expected Delivery Route/Plan Labor Preferences- CB/BF classes: [] labor support person: [] labor intervention preferences: [] pain management options preferred: [] cut cord/dad catch: [] : [] PP control planned: [] discussed possible routes of delivery and associated risks: [] special requests: [] Specific Issue/Plans Covid status: [] Flu vaccine: [] Tdap vaccine: [] Rhogam: [] LARC form signed: [] Problem list reviewed and updated with the most current plan of care details and appropriate orders placed. Relevant counseling for the gestational age provided. Continue routine care and follow up unless otherwise noted in visit notes/problem list details Initial Weight: Not Recorded Date -???-???-???-???-??? -???-???-???-???-??? -???-???- EGA Weight BP Urine Prot -???-???-???-???-??? -???-???-???-???-??? -???-???- Glucose FHR FuHt Pres Dilation -???-???-???-???-??? -???-???-???-???-??? -???-???- Effaced St Visit Note 12/30/23 -???-???-???-???-??? -???-???-???-???-??? -???-???- 11w 0d 245 lb 2 oz 127/77 -???-???-???-???-??? -???-???-???-???-??? -???-???- 160 -???-???-???-???-??? -???-???-???-???-??? -???-???- KW- CRL cons with dates. accepts nipt. discussed (more content not included)... Normal [facility] Fact V Leiden Mutationon FACTOR V LEIDEN Comment Abnormal . [facility] Comment on above: Result Comment: Resu lt: c.1601G>A (p.Ydm625Jen) - Detected, Heterozygous This result is associated with a 6- to 8-fold increased risk for venous thromboembolism. See Additional Clinical Information and Comments. Additional Clinical Information: Venous thromboembolism is a multifactorial disease influenced by genetic, environmental, and circumstantial risk factors. The c.1601G>A (p. [id number]) variant in the F5 gene, commonly referred to as Factor V Leiden, is a genetic risk factor for venous thromboembolism. Heterozygous carriers of this variant have a 6- to 8-fold increased risk for venous thromboembolism. Individuals homozygous for this variant (ie, with a copy of the variant on each chromosome) have an approximately 80-fold increased risk for venous thromboembolism. Individuals who carry both a c.*97G>A variant in the F2 gene and Factor V Leiden have an approximately 20-fold increased risk for venous thromboembolism. Risks are likely to be even higher in more complex genotype combinations involving the F2 c.*97G>A variant and Factor V Leiden (PMID: 87360718). Additional risk factors include but are not limited to: deficiency of protein C, protein S, or antithrombin III, age, male sex, personal or family history of deep vein thromboembolism, smoking, surgery, prolonged immobilization, malignant neoplasm, tamoxifen treatment, raloxifene treatment, oral contraceptive use, hormone replacement therapy, and . Management of thrombotic risk and thrombotic events should follow established guidelines and fit the clinical circumstance. This result cannot predict the occurrence or recurrence of a thrombotic event. Comment: Genetic counseling is recommended to discuss the potential clinical implications of positive results, as well as recommendations for testing family members. Genetic Coordinators are available for health care providers to discuss results at [phone]). Test Details: Variant Analyzed: c.1601G>A (p. [id number]), referred to as Factor V Leiden Methods/Limitations: DNA analysis of the F5 gene (NM_000130.5) was performed by PCR amplification followed by restriction enzyme analysis. The diagnostic sensitivity is >99%. Results must be combined with clinical information for the most accurate interpretation. Molecular-based testing is highly accurate, but as in any laboratory test, diagnostic errors may occur. False positive or false negative results may occur for reasons that include genetic variants, blood transfusions, bone marrow transplantation, somatic or tissue-specific mosaicism, mislabeled samples, or erroneous representation of family relationships. This test was developed and its performance characteristics determined by [facility]. It has not been cleared or approved by the Food and Drug Administration. References: Zenobia Tyler, Rose SMITH, Nguyễn R, Presley WW, Tru JH; ACMG Professional Practice and Guidelines Committee. Addendum: [place] [employer] consensus statement on factor V Leiden mutation testing. Bia Med. 2020May 24. doi: 10.1038/o85565-945-55544-e. PMID: 54394204. Thania ELDER. Factor V Leiden Thrombophilia. 1998August 02 (Updated 2017Mar 25). In: Neal MP, Maximus HH, Desire RA, et al., editors. Chalino(R) (Internet). [place] ([place]): [facility], [place]; 3896-5779. Available from: https://www.ncbi.nlm.nih.gov/books/PHM2646/ Grant Tyler, Rose SMITH, Vinayak X, Don B, Faheem EB, Ariadna P, Mejia CS; [employer] Laboratory Bulk Plant Manager Committee. Venous thromboembolism laboratory testing (factor V Leiden and factor II c.*97G>A), 2018 update: a technical standard of the [place] [employer] and [employer]omics (ACMG). Bia Med. 2018 Feb;20(12):1165-2728. doi: 10.1038/[id number]-b. Epub 2017Dec 24. PMID: 94564525. Performed By: #### L 509.8002 #### [facility] [address] [place], [place], [id number] Reviewed By Comment Normal . [facility] Comment on above: Result Comment: Tech nical Component performed at [facility] Professional Component performed by: Graffle Leobardo Hernandez, Ph.D., [facility] Director, Molecular Genetics [address] [place] [address] [place] [address] Performed at: - [facility] [address] [place], [place] [id number] Veterinary Radiologist: Ngozi Tomas [facility], Phone: [phone] Performed By: #### L 509.8002 #### [facility] [address] [place], [place], [id number] PAP I-G w/rfx hrHPV-Aptimaon 01-05-2024 ADEQ Comment Normal . [facility] Comment on above: Order Comment: Speci men Comment: [id number] Comment: Source.............CervixSpecimen Comment: LMP / Prev Treat...[id number] Comment: Other..............Specimen Comment: No. of containers..01 ThinPrep Vial Result Comment: Sati sfactory for evaluation. No endocervical component is identified. An endocervical component is not commonly seen in the patient. Performed By: #### M 100.2200, L7400.0353, L501.0900, L7000.1800 ####[facility] [address] [place], [place], [address] COMM . Normal . [facility] Comment on above: Order Comment: Speci men Comment: [id number] Comment: Source.............CervixSpecimen Comment: LMP / Prev Treat...[id number] Comment: Other..............Specimen Comment: No. of containers..01 ThinPrep Vial Performed By: #### M 100.2200, L7400.0353, L501.0900, L7000.1800 ####[facility] [address] [place], [place], [id number] COMMENT Comment Normal . [facility] Comment on above: Order Comment: Speci men Comment: [id number] Comment: Source.............CervixSpecimen Comment: LMP / Prev Treat...[id number] Comment: Other..............Specimen Comment: No. of containers..01 ThinPrep Vial Result Comment: This liquid based ThinPrep(R) pap test was screened with the use of an image guided system. Performed By: #### M 100.2200, L7400.0353, L501.0900, L7000.1800 ####[facility] [address] [place], [place], [id number] DIAG Comment Normal . [facility] Comment on above: Order Comment: Speci men Comment: [id number] Comment: Source.............CervixSpecimen Comment: LMP / Prev Treat...[id number] Comment: Other..............Specimen Comment: No. of containers..01 ThinPrep Vial Result Comment: NEGA TIVE FOR INTRAEPITHELIAL LESION OR MALIGNANCY. FUNGAL ORGANISMS MORPHOLOGICALLY CONSISTENT WITH DEB SPECIES ARE PRESENT. Performed By: #### M 100.2200, L7400.0353, L501.0900, L7000.1800 ####[facility] [address] [place], [place], [id number] HPV RFLX Comment Normal . [facility] Comment on above: Order Comment: Speci men Comment: [id number] Comment: Source.............CervixSpecimen Comment: LMP / Prev Treat...[id number] Comment: Other..............Specimen Comment: No. of containers..01 ThinPrep Vial Result Comment: The HPV DNA reflex criteria were not met with this specimen result therefore, no HPV testing was performed. Performed at: [address] [id number] Veterinary Radiologist: Francisca Khoury MD, Phone: [phone] Performed By: #### M 100.2200, L7400.0353, L501.0900, L7000.1800 ####[facility] [address] [place], [place], [id number] PAPSMR Comment Normal . [facility] Comment on above: Order Comment: Speci men Comment: [id number] Comment: Source.............CervixSpecimen Comment: LMP / Prev Treat...[id number] Comment: Other..............Specimen Comment: No. of containers..01 ThinPrep Vial Result Comment: The Pap smear is a screening test designed to aid in the detection of premalignant and malignant conditions of the uterine cervix. It is not a diagnostic procedure and should not be used as the sole means of detecting cervical cancer. Both false-positive and false-negative reports do occur. Performed By: #### M 100.2200, L7400.0353, L501.0900, L7000.1800 ####[facility] [address] [place], [place], [id number] PERFORM Comment Normal . [facility] Comment on above: Order Comment: Speci men Comment: [id number] Comment: Source.............CervixSpecimen Comment: LMP / Prev Treat...[id number] Comment: Other..............Specimen Comment: No. of containers..01 ThinPrep Vial Result Comment: Amilcar Lester, Paper Baling Machine Operator (ASCP) Performed By: #### M 100.2200, L7400.0353, L501.0900, L7000.1800 ####[facility] [address] [place], [place], [id number] Miscellaneous Lab Procedure 2on 01-01-2024 MISC LAB TEST 2 Normal [facility] Comment on above: Order Comment: antit hromin [id number] BLUE TOPS Result Comment: TEST RESULTS LIMITS Antithrombin III, Func/Immunol Antithrombin Activity 83 % 75-135 Direct Xa inhibitor anticoagulants such as rivaroxaban, apixaban and edoxaban will lead to spuriously elevated antithrombin activity levels possibly masking a deficiency. Antithrombin Antigen 71 Low % 72-124 This test was developed and its performance characteristics determined by [facility]. It has not been cleared or approved by the Food and Drug Administration. TESTING PERFORMED AT [facility]. ORIGINAL REPORT ON FILE IN LAB CONTAINS ADDITIONAL TEST SITE INFORMATION. Performed By: #### L 509.8002 #### [facility] [address] [place], [place], [id number] Urine Cultureon 01-01-2024 [facility] Mixed Gram Positive Organisms [place] Count 11,000-25,000 MIXC Mixed contaminants. Submit a new specimen if indicated. Normal [facility] Comment on above: Performed By: #### M 100.2200, L7400.0353, L501.0900, L7000.1800 ####[facility] [address] [place], [address] Chlamydia/GC EARL aptimaon CHLAMY,NUC ACID Negative Normal Negative [facility] Comment on above: Performed By: #### M 100.2200, L7400.0353, L501.0900, L7000.1800 ####[facility] [address] [place], [address] GC BY NUC ACID Negative Normal Negative [facility] Comment on above: Result Comment: Perf ormed at: =G - [facility] [address] [id number] Veterinary Radiologist: Francisca Khoury MD, Phone: [phone] Performed By: #### M 100.2200, L7400.0353, L501.0900, L7000.1800 ####[facility] [address], [address] CBC W/Diff, Automatedon 12-20 Absolute Lymph 1.77 X10 3/uL Normal 0.83-4.51 [facility] Comment on above: Performed By: #### L 501.080 #### [facility] [address] [place], [address] Absolute Neut 6.7 X10 3/uL Normal 2.0-7.7 [facility] Comment on above: Performed By: #### L 501.080 #### [facility] [address] [place], [address] Basophils/100 WBC (Bld) 0.3 % Normal 0-1 [facility] Comment on above: Performed By: #### L 501.080 #### [facility] [address] [place], [address] Eosinophils/100 WBC (Bld) 1.0 % Normal 0-5 [facility] Comment on above: Performed By: #### L 501.080 #### [facility] [facility] [address] [place], [address] Erythrocyte distribution width (RBC) [Ratio] 12.3 % Normal 11.6-14.6 [facility] Comment on above: Performed By: #### L 501.080 #### [facility] [address] [place], [address] Hematocrit (Bld) [Volume fraction] 41.0 % Normal 37-47 [facility] Comment on above: Performed By: #### L 501.080 #### [facility] [address] [place], [address] Hemoglobin (Bld) [Mass/Vol] 13.6 g/dL Normal 12.0-15.0 [facility] Comment on above: Performed By: #### L 501.080 #### [facility] [address] [place], [address] IG% 0.300 Normal 0.0-0.9 [facility] Comment on above: Result Comment: IG% - Immature Granulocytes (promyelocytes, myelocytes and metamyelocytes) > 1% indicates that a LEFT SHIFT is Present. Performed By: #### L 501.080 #### [facility] [address] [place], [address] Lymphocytes/100 WBC (Bld) 19.3 % Normal 19-41 [facility] Comment on above: Performed By: #### L 501.080 #### [facility] [address] [place], [address] MCH (RBC) [Entitic mass] 29.6 pg Normal 27.0-32.0 [facility] Comment on above: Performed By: #### L 501.080 #### [facility] [address] [place], [address] MCHC (RBC) [Mass/Vol] 33.2 g/dL Normal 32-36 [facility] Comment on above: Performed By: #### L 501.080 #### [facility] [address] [place], [address] MCV (RBC) [Entitic vol] 89.1 fL Normal 81-99 [facility] Comment on above: Performed By: #### L 501.080 #### [facility] [address] [place], [address] Monocytes/100 WBC (Bld) 6.2 % Normal 0-10 [facility] Comment on above: Performed By: #### L 501.080 #### [facility] [address] [place], [address] Neutrophils/100 WBC (Bld) 72.9 % High 47-70 [facility] Comment on above: Performed By: #### L 501.080 #### [facility] [address] [place], [address] Nucleated RBC (Bld) [#/Vol] 0 10*3/uL Normal 0-5 [facility] Comment on above: Performed By: #### L 501.080 #### [facility] [address] [place], [address] Platelet mean volume (Bld) [Entitic vol] 10.8 fL Normal 6.2-12.0 [facility] Comment on above: Performed By: #### L 501.080 #### [facility] [address] [place], [address] Platelets (Bld) [#/Vol] 279 10*3/uL Normal 150-450 [facility] Comment on above: Performed By: #### L 501.080 #### [facility] [address] [place], [address] RBC (Bld) [#/Vol] 4.60 10*6/uL Normal 4.2-5.4 [facility] Comment on above: Performed By: #### L 501.080 #### [facility] [address] [place], [address] RDW SD 40.3 fl Normal 35.1-43.9 [facility] Comment on above: Performed By: #### L 501.080 #### [facility] [address] [place], [address] WBC (Bld) [#/Vol] 9.2 10*3/uL Normal 4.4-11.0 [facility] Comment on above: Performed By: #### L 501.080 #### [facility] [address] [place], [address] Comprehensive Metabolic Prof [facility] 12-30-2023 Albumin [Mass/Vol] 3.2 g/dL Normal 3.2-5.0 [facility] Comment on above: Performed By: #### L 501.080 #### [facility] [address] [place], [address] Albumin/Globulin [Mass ratio] 0.8 {ratio} Low 0.9-2.4 [facility] Comment on above: Performed By: #### L 501.080 #### [facility] [address] [place], [address] ALK P 51 U/L Normal 45-117 [facility] Comment on above: Performed By: #### L 501.080 #### [facility] [address] [place], [address] ALT [Catalytic activity/Vol] 15 U/L Normal 13-56 [facility] Comment on above: Performed By: #### L 501.080 #### [facility] [address] [place], [address] AST [Catalytic activity/Vol] 12 U/L Low 15-37 [facility] Comment on above: Performed By: #### L 501.080 #### [facility] [address] [place], [address] Bilirubin [Mass/Vol] 0.20 mg/dL Normal 0.20-1.00 [facility] Comment on above: Result Comment: For patients on eltrombopag therapy, use of Dimension [place] TBIL is not recommended. Performed By: #### L 501.080 #### [facility] [address] [place], [address] BUN/CRE 13.8 RATIO Normal 10-20 [facility] Comment on above: Performed By: #### L 501.080 #### [facility] [address] [place], [address] CA,Total 9.3 mg/dL Normal 8.5-10.1 [facility] Comment on above: Performed By: #### L 501.080 #### [facility] [address] [place], [address] Chloride [Moles/Vol] 109 mmol/L High 98-107 [facility] Comment on above: Performed By: #### L 501.080 #### [facility] [address] [place], [address] CO2 [Moles/Vol] 21.0 mmol/L Normal 21.0-32.0 [facility] Comment on above: Performed By: #### L 501.080 #### [facility] [address] [place], [address] Creatinine [Mass/Vol] 0.65 mg/dL Normal 0.55-1.02 [facility] Comment on above: Result Comment: The validity of the calculated GFR GFRAA in patients over 70 years has not been determined. Clinical correlation is essential. Performed By: #### L 501.080 #### [facility] [address] [place], [address] EST GFR - AA 137 mL/min Normal >60 [facility] Comment on above: Result Comment: Afri can Latvian GFR Calc Performed By: #### L 501.080 #### [facility] [address] [place], [address] GAP 7 Normal 5-15 [facility] Comment on above: Performed By: #### L 501.080 #### [facility] [address] [place], [address] GFR/1.73 sq M.predicted among non-blacks MDRD (S/P/Bld) [Vol rate/Area] 113 mL/min/{1.73_m2} Normal >60 [facility] Comment on above: Result Comment: Non- GFR Calc Performed By: #### L 501.080 #### [facility] [address] [place], [address] Globulin (S) [Mass/Vol] 3.8 g/dL Normal 2.2-4.2 [facility] Comment on above: Performed By: #### L 501.080 #### [facility] [address] [place], [address] Glucose [Mass/Vol] 93 mg/dL Normal 74-106 [facility] Comment on above: Performed By: #### L 501.080 #### [facility] [address] [place], [address] Potassium [Moles/Vol] 4.1 mmol/L Normal 3.5-5.1 [facility] Comment on above: Performed By: #### L 501.080 #### [facility] [address] [place], [address] Sodium [Moles/Vol] 137 mmol/L Normal 136-145 [facility] Comment on above: Performed By: #### L 501.080 #### [facility] [address] [place], [address] T PROT 7.0 g/dL Normal 6.4-8.2 [facility] Comment on above: Performed By: #### L 501.080 #### [facility] [address] [place], [address] Urea nitrogen [Mass/Vol] 9 mg/dL Normal 7-18 [facility] Comment on above: Performed By: #### L 501.080 #### [facility] [address] [place], [address] HIV - WCHon 12-30-2023 HIV Non-Reactive Normal Nonreactive [facility] Comment on above: Order Comment: Reaso n for Exam: Performed By: #### L 501.080 #### [facility] [address] [place], [address] Hemoglobin A1con 12-30-2023 HbA1c (Bld) [Mass fraction] 4.8 % Normal 3.8-5.6 [facility] Comment on above: Result Comment: Norm al < 5.7 % Prediabetic 5.7 - 6.4 % Diabetic >or= 6.5 % Please note range changes. Performed By: #### L 488.8002 #### [facility] [address] [place], [address] Hepatitis B Surface Antigeno n 12-30-2023 HEP B Surf Ag Non-Reactive Normal Nonreactive [facility] Comment on above: Order Comment: Reaso n for Exam: Performed By: #### L 509.8002 #### [facility] [address] [place], [address] Hepatitis C Antibodyon 12-29 Hepatitis C AB Non-Reactive Normal Nonreactive [facility] Comment on above: Order Comment: Reaso n for Exam: Result Comment: Non Reactive: < 0.8 Equivocal: >/= 0.8 to < 1.0 Reactive: >/= 1.0 The CDC requires that a reactive/equivocal HCV antibody result be sent out for confirmation. HCV Quant by PCR testing. Performed By: #### L 509.8002 #### [facility] [address] [place], [address] L509.8000on 12-30-2023 Syphilis Abs Non-Reactive Normal [facility] Comment on above: Order Comment: Reaso n for Exam: Performed By: #### L 501.080 #### [facility] [address] [place], [address] NATERAon 12-30-2023 NATURA SEE SCANNED REPORT Normal [facility] Comment on above: Performed By: #### L 501.080 #### [facility] [address] [place], [address] Stranding Supervisor Office Visit Reporton 12-30-2023 Stranding Supervisor Office Visit Report [facility] [address], [address] [place] [address] OFFICE VISIT Date of Service: 12/30/23 MR#: [id number] Acct: [id number] Name: YUSRA FUENTES Kalpesh Rep #: [id number] : 1995 Provider: ARTEM Albert ams Age/Sex: 28/F Location: [facility] Status: Signed Intake Vital Signs 12/30/23 08:54 Height 5 ft 4 in Weight: 245 lb 2 oz BMI 42.0 BP 127/77 H Intake Visit Reasons: New OB, LMP 10/14/23, AUGUST 07/20/24 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 Service Professional Required: No Is patient in pain?: No Allergies mushroom Allergy (Verified 12/30/23 08:52) Swelling Medications ???Medication ???Instructions ???Recorded ???Confirmed ???Type vits,calcium no.78-iron 1 tab PO DAILY 04/18/15 12/30/23 History fumarate-folic acid 29 mg-1 mg tablet (Prenatabs FA) bupropion HCl 150 mg 24 hr tablet, 150 mg PO QAM #30 tabs 12/30/23 12/30/23 Rx extended release (Wellbutrin XL) enoxaparin 40 mg/0.4 mL 40 mg (0.4 mL) subcut QDAY #4 mL 12/30/23 12/30/23 Rx subcutaneous syringe (Lovenox) Last Menstrual Period: 10/14/23 Zika: Zika virus screening: Negative : No PFSH PFSH Medical History 39 weeks gestation of Depression Psoriasis Seasonal allergies Family History Mother Heart disease Hypothyroidism Social History adopted: No household members: spouse and children number of children: 2 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 current occupational exposures/hazards: No pets and animals: Yes (Not taking care litter box) pets and animals: cat(s) history of recent travel: Yes ([place] in Nov 2023) out of state: Yes out of country: No sexually active: Yes Smoking Status: Former smoker alcohol intake: never substance use type: does not use diet: other well-balanced diet: daily or most days caffeine: Yes eating out: 1-3 times/week during the past year weight has: other details: Lost 30lbs on [place], has gain about 15lbs back what type of physical activity do you participate in: walking frequency: 3-4 times per week duration: < 15 minutes/day angela/cheondoism: None seatbelt use: always do you feel safe at home: Yes 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 Date Name GA/Weeks Outcome Route Bth Weight Infant Gen Labor Lgth Anesthesia Del Locatn Provider FOB Unknown Chemical - 2018 04/06/15 [place] 38 live - full term 8lbs 14oz Male [facility] 01/12/19 [place] 39 live - full term 9lbs 4oz Male 8 epidural [facility] S sandra Mobley Delivery Date: 04/06/15 Last Updated by: Sujey Hong RN Gained 60lbs, Induced d/t early pre-e Delivery Date: 01/12/19 Last Updated by: Sujey Hong RN Induction d/t size HPI New OB, LMP 10/14/23, AUGUST 07/20/24 Details: YUSRA FUENTES is a 28 year old who presents for New OB visit. OB Visit AUGUST Calculator Estimated Delivery Date Method Current WG Current Estimate 07/20/24 LMP (Certain) 11w 0d Estimated Due Date: 07/20/24 Expected Delivery Route/Plan Labor Preferences- CB/BF classes: [] labor support person: [] labor intervention preferences: [] pain management options preferred: [] cut cord/dad catch: [] : [] PP control planned: [] discussed possible routes of delivery and associated risks: [] special requests: [] Specific Issue/Plans Covid status: [] Flu vaccine: [] Tdap vaccine: [] Rhogam: [] LARC form signed: [] Problem list reviewed and updated with the most current plan of care details and appropriate orders placed. Relevant counseling for the gestational age provided. Continue routine care and follow up unless otherwise noted in visit notes/problem list details Initial Weight: Not Recorded Date -???-???-???-???-??? -???-???-???-???-??? -???-???- EGA Weight BP Urine Prot -???-???-???-???-??? -???-???-???-???-??? -???-???- Glucose FHR FuHt Pres Dilation -???-???-???-???-??? -???-???-???-???-??? -???-???- Effaced St Visit Note 12/30/23 -???-???-???-???-??? -???-???-???-???-??? -???-???- 11w 0d 245 lb 2 oz 127/77 -???-???-???-???-??? -???-???-???-???-??? -???-???- 160 -???-???-???-???-??? -???-???-???-???-??? -???-???- KW- CRL cons with dates. accepts nipt. discussed hx PE with SM. plan to start lovenox 40 and hem consult KW- CRL cons with (more content not included)... Normal [facility] Protein+Creatinine Ratio,Uri neon 12-30-2023 PROT:CRE RATIO TNP Normal 0-200 [facility] Comment on above: Performed By: #### M 100.2200, L7400.0353, L501.0900, L7000.1800 ####[facility] [address] [place], [address] PROTEIN,UR.RAN. < 6.0 Normal <11.9 [facility] Comment on above: Performed By: #### M 100.2200, L7400.0353, L501.0900, L7000.1800 ####[facility] [address] [place], [address] UR CREAT 27.80 mg/dL Normal NO RANGE EST. [facility] Comment on above: Performed By: #### M 100.2200, L7400.0353, L501.0900, L7000.1800 ####[facility] [address] [place], [address] Rubella IgGon 12-30-2023 Rubella IgG Reactive Normal Nonreactive [facility] Comment on above: Order Comment: Reaso n for Exam: Result Comment: Anti body Results Interpretation of Immune Status Non Reactive Presumed Non-Immune Equivocal Equivocal Reactive Presumed Immune Performed By: #### L 501.080 #### [facility] [address] [place], [address] T4 Free Directon 12-30-2023 T4 FREE DIRECT 0.88 ng/dL Normal 0.76-1.46 [facility] Comment on above: Performed By: #### L 501.080 #### [facility] [address] [place], [address] Thyroid Stim Hormone (TSH)on 12-30-2023 TSH 3.240 uIU/mL Normal 0.358-3.740 [facility] Comment on above: Performed By: #### L 501.080 #### [facility] [address] [place], [address] Type AND Screenon 12-30-2023 Ab SCREEN GEL Negative Normal [facility] Comment on above: Order Comment: P Performed By: #### L 501.080 #### [facility] [address] [place], [address] CT ABDOMEN/PELVIS WITH CONTR Mateus 11-26-2023 CT ABDOMEN/PELVIS WITH CONTRAST EXAMINATION: CT ABDOMEN/PELVIS WITH CONTRAST, 11/26/2023 1:47 AM EDT HISTORY: RLQ abd pain, fever, ectopic ruled out COMPARISON: None. TECHNIQUE: CT scan of the abdomen and pelvis was performed with IV contrast. CT dose reduction technique was used, including Automated Exposure Control. FINDINGS: Lower thorax: Lung bases are clear. Liver: Normal. Spleen: Normal. STOMACH: Normal. Gallbladder and bile ducts: Normal. Bowel: No obstruction, free air, or ascites. No mucosal thickening. Appendix: Normal. Kidneys: Tiny right renal cyst. No evidence of pyelonephritis or hydronephrosis. Adrenal glands: Normal. Pancreas: Normal. Lymph nodes: No adenopathy. Vascular: Normal aorta and IVC. CT PELVIS: There is a 2.8 cm left ovarian cyst. Small uterine fundal fibroid. No pelvic adenopathy or ascites. Skeletal: No lytic or sclerotic lesions. IMPRESSION: 1. There are no acute findings. 2. There is a 2.8 cm left ovarian cyst Normal [facility] CT Abdomen and Pelvis W cont rast Miko 11-26-2023 IMPRESSION: 1. There are no acute findings. 2. There is a 2.8 cm left ovarian cyst RADIOLOGY EXAMINATION: CT ABDOMEN/PELVIS WITH CONTRAST, 11/26/2023 1:47 AM EDT HISTORY: RLQ abd pain, fever, ectopic ruled out COMPARISON: None. TECHNIQUE: CT scan of the abdomen and pelvis was performed with IV contrast. CT dose reduction technique was used, including Automated Exposure Control. FINDINGS: Lower thorax: Lung bases are clear. Liver: Normal. Spleen: Normal. STOMACH: Normal. Gallbladder and bile ducts: Normal. Bowel: No obstruction, free air, or ascites. No mucosal thickening. Appendix: Normal. Kidneys: Tiny right renal cyst. No evidence of pyelonephritis or hydronephrosis. Adrenal glands: Normal. Pancreas: Normal. Lymph nodes: No adenopathy. Vascular: Normal aorta and IVC. CT PELVIS: There is a 2.8 cm left ovarian cyst. Small uterine fundal fibroid. No pelvic adenopathy or ascites. Skeletal: No lytic or sclerotic lesions. RADIOLOGY Frank Pappas MD - 11/26/2023 EXAMINATION: CT ABDOMEN/PELVIS WITH CONTRAST, 11/26/2023 1:47 AM EDT HISTORY: RLQ abd pain, fever, ectopic ruled out COMPARISON: None. TECHNIQUE: CT scan of the abdomen and pelvis was performed with IV contrast. CT dose reduction technique was used, including Automated Exposure Control. FINDINGS: Lower thorax: Lung bases are clear. Liver: Normal. Spleen: Normal. STOMACH: Normal. Gallbladder and bile ducts: Normal. Bowel: No obstruction, free air, or ascites. No mucosal thickening. Appendix: Normal. Kidneys: Tiny right renal cyst. No evidence of pyelonephritis or hydronephrosis. Adrenal glands: Normal. Pancreas: Normal. Lymph nodes: No adenopathy. Vascular: Normal aorta and IVC. CT PELVIS: There is a 2.8 cm left ovarian cyst. Small uterine fundal fibroid. No pelvic adenopathy or ascites. Skeletal: No lytic or sclerotic lesions. IMPRESSION IMPRESSION: 1. There are no acute findings. 2. There is a 2.8 cm left ovarian cyst [facility] Radiology Study observation (narrative) [facility] [employer] [facility] CT Abdomen and Pelvis W cont rast IVOrdered By: Frank Pappas on 11-26-2023 [facility] Work Phone: Narrative [Interpretat ion] Study observation.general transvaginal 1st trimester USon 11-26-2023 IMPRESSION: Gestational sac with a yolk sac, pole and heartbeat. Gestational age is 6 weeks 1 day with estimated date of delivery of 07/22/2024. RADIOLOGY US OB TRANSVAGINAL/CERVICA L LENGTH HISTORY: Pain R/O Ectopic COMPARISONS: none TECHNIQUE: Transvaginal imaging the pelvis was performed. FINDINGS: UTERUS: Normal in size and echogenicity. The uterus measures 10.0 x 6.4 x 7.3 cm. MYOMETRIUM:Unremarka ble. ENDOMETRIUM: There is a gestational sac with a yolk sac, pole and a heartbeat 123 bpm. [place]-rump length is 0.47 cm yielding a gestational age of 6 weeks 1 day with estimated date of delivery of 07/22/2024. RIGHT OVARY: Within normal limits without suspicious masses or cyst. There is normal blood flow. The right ovary measures 1.4 x 2.2 x 1.7 cm. LEFT OVARY: There is a corpus luteum follicle in the left ovary measuring 2.4 x 2.1 x 2.5 cm. Normal vascular flow is present in the left ovary. The left ovary measures 3.0 x 4.2 x 3.2 cm. OTHER:There is no significant free fluid in the pelvis. RADIOLOGY Mabel Heath, DO - 11/26/2023 US OB TRANSVAGINAL/CERVICA L LENGTH HISTORY: Pain R/O Ectopic COMPARISONS: none TECHNIQUE: Transvaginal imaging the pelvis was performed. FINDINGS: UTERUS: Normal in size and echogenicity. The uterus measures 10.0 x 6.4 x 7.3 cm. MYOMETRIUM:Unremarka ble. ENDOMETRIUM: There is a gestational sac with a yolk sac, pole and a heartbeat 123 bpm. [place]-rump length is 0.47 cm yielding a gestational age of 6 weeks 1 day with estimated date of delivery of 07/22/2024. RIGHT OVARY: Within normal limits without suspicious masses or cyst. There is normal blood flow. The right ovary measures 1.4 x 2.2 x 1.7 cm. LEFT OVARY: There is a corpus luteum follicle in the left ovary measuring 2.4 x 2.1 x 2.5 cm. Normal vascular flow is present in the left ovary. The left ovary measures 3.0 x 4.2 x 3.2 cm. OTHER:There is no significant free fluid in the pelvis. IMPRESSION IMPRESSION: Gestational sac with a yolk sac, pole and heartbeat. Gestational age is 6 weeks 1 day with estimated date of delivery of 07/22/2024. [facility] Radiology Study observation (narrative) [facility] Narrative [Interpretat ion] Study observation.general transvaginal 1st trimester USOrdered By: Mabel Heath on 11-26-2023 [facility] Work Phone: US OB TRANSVAGINAL/CERVICAL LENGTHon 11-26-2023 US OB TRANSVAGINAL/CERVICAL LENGTH US OB TRANSVAGINAL/CERVICA L LENGTH HISTORY: Pain R/O Ectopic COMPARISONS: none TECHNIQUE: Transvaginal imaging the pelvis was performed. FINDINGS: UTERUS: Normal in size and echogenicity. The uterus measures 10.0 x 6.4 x 7.3 cm. MYOMETRIUM:Unremarka ble. ENDOMETRIUM: There is a gestational sac with a yolk sac, pole and a heartbeat 123 bpm. [place]-rump length is 0.47 cm yielding a gestational age of 6 weeks 1 day with estimated date of delivery of 07/22/2024. RIGHT OVARY: Within normal limits without suspicious masses or cyst. There is normal blood flow. The right ovary measures 1.4 x 2.2 x 1.7 cm. LEFT OVARY: There is a corpus luteum follicle in the left ovary measuring 2.4 x 2.1 x 2.5 cm. Normal vascular flow is present in the left ovary. The left ovary measures 3.0 x 4.2 x 3.2 cm. OTHER:There is no significant free fluid in the pelvis. IMPRESSION: Gestational sac with a yolk sac, pole and heartbeat. Gestational age is 6 weeks 1 day with estimated date of delivery of 07/22/2024. Normal [facility] BETA HCG, QUAL, BLOODon 09-0 HCG ( test) Ql Positive Abnormal NEGATIVE A Watson Brown BHCG,QUANTITATIVEon 11-25-19 24 BHCG,QUANTITATIVE 22216.00 MIU/ML Normal Av [facility] Comment on above: Result Comment: [facility] INTERPRETIVE RANGES: NON FEMALE 0-6 MIU/ML MALE ADULT 0-2 MIU/ML 0-1 WEEK 6-50 MIU/ML 1-2 WEEKS 40-300 MIU/ML 2-3 WEEKS 100-1,000 MIU/ML 3-4 WEEKS 500-6,000 MIU/ML 1-2 MONTHS 5,000-200,000 MIU/ML 2-3 MONTHS 10,000-100,000 MIU/ML 2ND TRIMESTER 3,000-50,000 MIU/ML 3RD TRIMESTER 1,000-50,000 MIU/ML If an hCG level is inconsistent with, or unsupported by, clinical evidence, results should be confirmed by an alternate hCG method. This method may include the qualitative hCG testing of urine. Performed By: #### B LC #### Testing performed at [address] [address] BLOOD CULTUREon 11-25-2023 Bacteria identified Cx Nom (Bld) SPECIMEN DESCRIPTION PERIPHERAL BLOOD DRAW CULTURE NO GROWTH 5 DAYS REPORT STATUS 12/01/2023 * Result Note: FINAL * Normal [facility] Comment on above: Performed By: #### B LC #### Testing performed at [address] [address] [address] Bacteria identified Cx Nom (Bld) SPECIMEN DESCRIPTION PERIPHERAL BLOOD DRAW CULTURE NO GROWTH 5 DAYS REPORT STATUS 12/01/2023 * Result Note: FINAL * Normal [facility] Comment on above: Performed By: #### B LC #### Testing performed at [address] [address] CBCon 11-25-2023 ABSOLUTE BAS 0.0 10*3/uL Normal 0.0-0.2 [facility] Comment on above: Performed By: #### B LC #### Testing performed at [address] [address] ABSOLUTE EOS 0.0 10*3/uL Normal 0.0-0.7 [facility] Comment on above: Performed By: #### B LC #### Testing performed at [address] [address] ABSOLUTE NEUTROPHIL COUNT 6.4 10*3/uL Normal 1.4-6.5 [facility] Comment on above: Performed By: #### B LC #### Testing performed at [address] [address] Basophils/100 WBC (Bld) 0.2 % Normal 0.0-2.0 [facility] Comment on above: Performed By: #### B LC #### Testing performed at [address] [address] DTYPE AUTO DIFF Normal [facility] Comment on above: Performed By: #### B LC #### Testing performed at [address] [address] Eosinophils/100 WBC (Bld) 0.5 % Normal 0.0-11.0 [facility] Comment on above: Performed By: #### B LC #### Testing performed at [address] [address] Lymphocytes (Bld) [#/Vol] 0.5 10*3/uL Low 1.2-3.4 [facility] Comment on above: Performed By: #### B LC #### Testing performed at [address] [address] Lymphocytes/100 WBC (Bld) 6.5 % Low 20.0-55.0 [facility] Comment on above: Performed By: #### B LC #### Testing performed at [address] [address] Monocytes (Bld) [#/Vol] 0.4 10*3/uL Normal 0.0-0.7 [facility] Comment on above: Performed By: #### B LC #### Testing performed at [address] [address] Monocytes/100 WBC (Bld) 5.8 % Normal 0.0-10.0 [facility] Comment on above: Performed By: #### B LC #### Testing performed at [address] [address] Neutrophils/100 WBC (Bld) 87.0 % High 37.0-75.0 [facility] Comment on above: Performed By: #### B LC #### Testing performed at [address] [address] Erythrocyte distribution width (RBC) [Ratio] 13.6 % Normal 11.5-14.5 [facility] Comment on above: Performed By: #### B LC #### Testing performed at [address] [address] Hematocrit (Bld) [Volume fraction] 41.0 % Normal 36.0-48.0 [facility] Comment on above: Performed By: #### B LC #### Testing performed at [address] [address] Hemoglobin (Bld) [Mass/Vol] 13.8 g/dL Normal 12.0-16.0 [facility] Comment on above: Performed By: #### B LC #### Testing performed at [address] [address] MCH (RBC) [Entitic mass] 30.0 pg Normal 26.0-35.0 [facility] Comment on above: Performed By: #### B LC #### Testing performed at [address] [address] MCHC (RBC) [Mass/Vol] 33.7 g/dL Normal 27.0-37.0 [facility] Comment on above: Performed By: #### B LC #### Testing performed at [address] [address] MCV (RBC) [Entitic vol] 89.2 fL Normal 80.0-100.0 [facility] Comment on above: Performed By: #### B LC #### Testing performed at [address] [address] Platelet mean volume (Bld) [Entitic vol] 8.7 fL Normal 7.4-11.0 [facility] Comment on above: Performed By: #### B LC #### Testing performed at [address] [address] Platelets (Bld) [#/Vol] 229 10*3/uL Normal 130-400 [facility] Comment on above: Performed By: #### B SINA #### Testing performed at [address] [address] RBC (Bld) [#/Vol] 4.60 10*6/uL Normal 4.0-5.4 [facility] Comment on above: Performed By: #### B SINA #### Testing performed at [address] [address] WBC (Bld) [#/Vol] 7.4 10*3/uL Normal 3.6-11.0 [facility] Comment on above: Performed By: #### B SINA #### Testing performed at [address] [address] CBC, EDIF, PLATELETon 2023 ABSOLUTE BASOPHIL COUNT 0.0 10*3/uL 0.0 - 0.2 10*3/uL [facility] Basophils/100 WBC (Bld) 0.2 % 0.0 - 2.0 % [facility] Differential cell count method Nom (Bld) AUTO DIFF % [facility] Eosinophils (Bld) [#/Vol] 0.0 10*3/uL 0.0 - 0.7 10*3/uL [facility] Eosinophils/100 WBC (Bld) 0.5 % 0.0 - 11.0 % [facility] Erythrocyte distribution width (RBC) [Ratio] 13.6 % 11.5 - 14.5 % [facility] Hematocrit (Bld) [Volume fraction] 41.0 % 36.0 - 48.0 % [facility] Hemoglobin (Bld) [Mass/Vol] 13.8 g/dL [facility] Interpretation and review of laboratory results Abnormal [facility] Lymphocytes (Bld) [#/Vol] 0.5 10*3/uL Low 1.2 - 3.4 10*3/uL [facility] Lymphocytes/100 WBC (Bld) 6.5 % Low 20.0 - 55.0 % [facility] MCH (RBC) [Entitic mass] 30.0 pg 26.0 - 35.0 PG [facility] MCHC (RBC) [Mass/Vol] 33.7 g/dL [facility] MCV (RBC) [Entitic vol] 89.2 fL A [facility] Monocytes (Bld) [#/Vol] 0.4 10*3/uL 0.0 - 0.7 10*3/uL [facility] Monocytes/100 WBC (Bld) 5.8 % 0.0 - 10.0 % [facility] Neutrophils (Bld) [#/Vol] 6.4 10*3/uL 1.4 - 6.5 10*3/uL [facility] Neutrophils/100 WBC (Bld) 87.0 % High 37.0 - 75.0 % [facility] Platelet mean volume (Bld) [Entitic vol] 8.7 fL [facility] Platelets (Bld) [#/Vol] 229 10*3/uL 130 - 400 10*3/uL [facility] RBC (Bld) [#/Vol] 4.60 10*6/uL 4.0 - 5.4 10*6/uL [facility] WBC (Bld) [#/Vol] 7.4 10*3/uL 3.6 - 11.0 10*3/uL [facility] CHEM 7 FASTINGon 11-24-2023 Chloride [Moles/Vol] 106 mmol/L Normal 98-107 [facility] Comment on above: Result Comment: Rosendo barnes note: Triglyceride levels of 600mg/dL or higher may positively bias chloride results by approximately 2.1 mmol Performed By: #### B LC #### Testing performed at [address] [address] CO2 [Moles/Vol] 22 mmol/L Normal 22-30 [facility] Comment on above: Performed By: #### B LC #### Testing performed at [address] [address] Creatinine [Mass/Vol] 0.60 mg/dL Low 0.70-1.20 [facility] Comment on above: Performed By: #### B LC #### Testing performed at [address] [address] EST. GFR, 152 ml/min/1.73sq.m Normal [facility] Comment on above: Performed By: #### B LC #### Testing performed at [address] [address] EST. GFR,Non 126 ml/min/1.73sq.m [facility] Comment on above: Performed By: #### B LC #### Testing performed at [address] [address] GFR Information Average GFR for 20-29 years old = 116. Normal [facility] Comment on above: Result Comment: [employer] kenroy Kidney disease, GFR = <60. Kidney failure, GFR = <15. The GFR estimate is not adjusted for extreme body surface area or acute process, nor has it been validated for women or ethnic groups other than and . Performed By: #### B LC #### Testing performed at [address] [address] Glucose [Mass/Vol] 104 mg/dL High 70-100 [facility] Comment on above: Result Comment: NORMAL <100 mg/dL PREDIABETES 101-126 mg/dL DIABETES 126 mg/dL or higher Performed By: #### B LC #### Testing performed at [address] [address] Potassium [Moles/Vol] 3.9 mmol/L Normal 3.5-5.1 [facility] Comment on above: Performed By: #### B LC #### Testing performed at [address] [address] Sodium [Moles/Vol] 136 mmol/L Low 137-145 [facility] Comment on above: Performed By: #### B LC #### Testing performed at [address] [address] Urea nitrogen [Mass/Vol] 11 mg/dL Normal 7-20 [facility] Comment on above: Performed By: #### B LC #### Testing performed at [address] [address] CHEM 7 (LYTES,BUN,CREA,GLUC) on 11-25-2023 Chloride [Moles/Vol] 106 mmol/L [facility] Comment on above: Please note: Triglyc eride levels of 600mg/dL or higher may positively bias chloride results by approximately 2.1 mmol CO2 [Moles/Vol] 22 mmol/L [facility] Creatinine [Mass/Vol] 0.60 mg/dL Low [facility] GFR COMMENT Average GFR for 20-29 years old = 116. [facility] Comment on above: Chronic Kidney disea se, GFR = <60. Kidney failure, GFR = <15. The GFR estimate is not adjusted for extreme body surface area or acute process, nor has it been validated for women or ethnic groups other than and . GFR/1.73 sq M.predicted among blacks MDRD (S/P/Bld) [Vol rate/Area] 152 mL/min/{1.73_m2} ml/min/1.73sq. m [facility] GFR/1.73 sq M.predicted among non-blacks MDRD (S/P/Bld) [Vol rate/Area] 126 mL/min/{1.73_m2} ml/min/1.73sq. m [facility] Glucose post fast [Mass/Vol] 104 mg/dL High [facility] Comment on above: NORMAL <100 mg/dL PREDIABETES 101-126 mg/dL DIABETES 126 mg/dL or higher Interpretation and review of laboratory results Abnormal [facility] Potassium [Moles/Vol] 3.9 mmol/L [facility] Sodium [Moles/Vol] 136 mmol/L Low [facility] Urea nitrogen [Mass/Vol] 11 mg/dL [facility] HCG ( test) [place] [address].00 m[IU]/mL MIU/ML [facility] Comment on above: [facility] INTERPRETIVE RANGES: NON FEMALE 0-6 MIU/ML MALE ADULT 0-2 MIU/ML 0-1 WEEK 6-50 MIU/ML 1-2 WEEKS 40-300 MIU/ML 2-3 WEEKS 100-1,000 MIU/ML 3-4 WEEKS 500-6,000 MIU/ML 1-2 MONTHS 5,000-200,000 MIU/ML 2-3 MONTHS 10,000-100,000 MIU/ML 2ND TRIMESTER 3,000-50,000 MIU/ML 3RD TRIMESTER 1,000-50,000 MIU/ML If an hCG level is inconsistent with, or unsupported by, clinical evidence, results should be confirmed by an alternate hCG method. This method may include the qualitative hCG testing of urine. [facility] Interpretation and review of laboratory results Abnormal [facility] HEPATIC FUNCTION PANELon Albumin [Mass/Vol] 4.3 g/dL [facility] ALP [Catalytic activity/Vol] 58 U/L [facility] ALT [Catalytic activity/Vol] 21 U/L NINF [facility] AST [Catalytic activity/Vol] 22 U/L [facility] Bilirubin [Mass/Vol] 0.5 mg/dL [facility] Bilirubin.direct [Mass/Vol] 0.1 mg/dL [facility] Protein [Mass/Vol] 7.1 g/dL [facility] INFLUENZA A AND B, PCRon FLUAV and FLUBV Ag IF Nom (Unsp spec) Negative NEGATIVE [facility] FLUBV Ag IA Ql (Unsp spec) Negative NEGATIVE [facility] Comment on above: TESTING PERFORMED BY [facility] LACTATE, BLOODon 11-25-2023 Lactate [Moles/Vol] 1.4 mmol/L 0.7 - 2. 0 mmol/L [facility] LACTATE,BLOODon 11-25-2023 Lactate [Moles/Vol] 1.4 mmol/L Normal 0.7-2.0 [facility] Comment on above: Performed By: #### E SR, HEMOG, B12, CREACT, LIP2, CMPF #### Testing performed at [address] [address] LIVER PANELon 11-25-2023 Albumin [Mass/Vol] 4.3 g/dL Normal 2.9-5.3 [facility] Comment on above: Performed By: #### B LC #### Testing performed at [address] [address] ALP [Catalytic activity/Vol] 58 U/L Normal 38-126 [facility] Comment on above: Performed By: #### B LC #### Testing performed at [address] [address] ALT [Catalytic activity/Vol] 21 U/L Normal <35 [facility] Comment on above: Performed By: #### B LC #### Testing performed at [address] [address] AST [Catalytic activity/Vol] 22 U/L Normal 14-36 [facility] Comment on above: Performed By: #### B LC #### Testing performed at [address] [address] Bilirubin [Mass/Vol] 0.5 mg/dL Normal 0.2-1.3 [facility] Comment on above: Performed By: #### B LC #### [place] [address] Bilirubin.indirect [Mass/Vol] 0.1 mg/dL Normal 0.0-0.4 [facility] Comment on above: Performed By: #### B LC #### [place] [address] Protein [Mass/Vol] 7.1 g/dL Normal 6.3-8.2 [facility] Comment on above: Performed By: #### B LC #### [place] [address] NOVEL CORONAVIRUSon 11-25-19 24 NARRATIVE This test was performed using isothermal [employer] and has been approved as Emergency Use Authorization (EUA) for the qualitative detection [id number] nucleic acid. Normal [facility] Comment on above: Performed By: #### B LC #### Testing performed at [address] [address] SARS-CoV-2 (COVID-19) RNA EARL+probe Ql (Unsp spec) Not detected Normal NOT DETECTED [facility] Comment on above: Result Comment: Nega tive results do not preclude SARS-CoV-2 infection and should not be used as the sole basis for treatment or other patient management decisions. Optimum specimen types and timing for peak viral levels during infections caused by SARS-CoV-2 has not been determined. The possibility of a false negative result should especially be considered if the patient's recent exposures or clinical presentation suggest that SARS-CoV-2 infection is probable, and diagnostic tests for other causes of illness (e.g., other respiratory illness) are negative. Collection of a new specimen and re-testing may be necessary if the patient is critically ill or clinically deteriorating. Performed By: #### B LC #### [place] [address] NOVEL CORONAVIRUS LAB 1 - NA SOPHARYNGEALon 11-25-2023 NARRATIVE -1 This test was performed using isothermal [employer] and has been approved as Emergency Use Authorization (EUA) for the qualitative detection [id number] nucleic acid. [facility] SARS-CoV-2 (COVID-19) RNA EARL+probe Ql (Unsp spec) Not detected NOT DETECTED [facility] Comment on above: Negative results do not preclude SARS-CoV-2 infection and should not be used as the sole basis for treatment or other patient management decisions. Optimum specimen types and timing for peak viral levels during infections caused by SARS-CoV-2 has not been determined. The possibility of a false negative result should especially be considered if the patient's recent exposures or clinical presentation suggest that SARS-CoV-2 infection is probable, and diagnostic tests for other causes of illness (e.g., other respiratory illness) are negative. Collection of a new specimen and re-testing may be necessary if the patient is critically ill or clinically deteriorating. [facility] No Panel Informationon 11-24 [facility] RAPID FLU Aon 11-25-2023 INFLUENZA A Negative Normal NEGATIVE [facility] Comment on above: Performed By: #### E SR, HEMOG, B12, CREACT, LIP2, CMPF #### [place] [address] INFLUENZA B Negative Normal NEGATIVE [facility] Comment on above: Result Comment: TEST ING PERFORMED BY [employer] Performed By: #### E SR, HEMOG, B12, CREACT, LIP2, CMPF #### Testing performed at [place] [id number] RAPID STREP A ANTIGENon S. pyogenes Ag Ql (Throat) Negative NEGATIVE [facility] Comment on above: STREP CULTURE TO FOL LOW TESTING PERFORMED BY [employer] RAPID STREP GROUP Aon 2023 S. pyogenes Ag IA Ql (Unsp spec) Negative Normal NEGATIVE [facility] Comment on above: Result Comment: STRE P CULTURE TO FOLLOW TESTING PERFORMED BY [employer] Performed By: #### B LC #### Testing performed at [address] [address] SERUM HCG QUALon 11-25-2023 SERUM BETA HCG,QUAL Positive Abnormal NEGATIVE [facility] Comment on above: Performed By: #### B LC #### Testing performed at [address] [address] THROAT CULTUREon 11-25-2023 Throat culture SPECIMEN DESCRIPTION THROAT SWAB CULTURE USUAL OROPHARYNGEAL YUNIOR * Result Note: Testing performed at [place], [place] [address] * REPORT STATUS 11/28/2023 * Result Note: FINAL * Normal [facility] Comment on above: Performed By: #### B SINA #### Testing performed at [address] [address] TYPE AND SCREEN CROSSMATCH C ONVERTIBLEon 11-25-2023 TYPE AND SCREEN CROSSMATCH CONVERTIBLE WORKUP EXPIRES 11/28/2023,2359 ABO/RH(D) AB POSITIVE ANTIBODY SCREEN NEGATIVE ARM BAND NUMBER [id number] Normal [facility] Comment on above: Performed By: #### E SR, HEMOG, B12, CREACT, LIP2, CMPF #### Testing performed at [address] [address] TYPE AND SCREEN - POSSIBLE T RANSFUSIONon 11-25-2023 ABO and Rh group Nom (Bld ) Positive [facility] ARM BAND NUMBER [id number] [facility] Blood group antibody screen Ql Negative [facility] EXPIRATION DATE 11/28/2023,2359 [facility] URINALYSIS, MACROon 11-25-19 24 Bilirubin Ql (U) Negative NEGATIVE [facility] Clarity (U) CLEAR CLEAR [facility] Color (U) YELLOW YELLOW [facility] Glucose Test strip (U) [Mass/Vol] Negative NEGATIVE mg/dl [facility] Hemoglobin Ql (U) Negative NEGATIVE [facility] Interpretation and review of laboratory results Abnormal [employer] [facility] Ketones (U) [Mass/Vol] Negative NEGATIVE mg/d l [facility] Leukocyte esterase Test strip Ql (U) Negative NEGATIVE [facility] Nitrite Ql (U) Negative NEGATIVE [facility] pH (U) 6.5 [pH] 5.0 - 7.0 [facility] Protein Ql (U) Negative NEGATIVE mg/dl [facility] Specific gravity (U) [Rel density] >1.030 High 1.010 - 1.025 [facility] Urobilinogen (U) [Mass/Vol] 0.2 mg/dL [facility] URINE MACROSCOPICon 11-25-19 24 Bilirubin Ql (U) Negative Normal NEGATIVE [facility] Comment on above: Performed By: #### U MAC #### Testing performed at [address] [address] Clarity (U) CLEAR Normal CLEAR [facility] Comment on above: Performed By: #### U MAC #### Testing performed at [address] [address] Color (U) YELLOW Normal YELLOW [facility] Comment on above: Performed By: #### U MAC #### Testing performed at [address] [address] Glucose Ql (U) Negative Normal NEGATIVE [facility] Comment on above: Performed By: #### U MAC #### Testing performed at [address] [address] pH (U) 6.5 [pH] Normal 5.0-7.0 [facility] Comment on above: Performed By: #### U MAC #### Testing performed at [address] [address] URINE HEMOGLOBIN Negative Normal NEGATIVE [facility] Comment on above: Performed By: #### U MAC #### Testing performed at [address] [place] [address] URINE KETONE Negative Normal NEGATIVE [facility] Comment on above: Performed By: #### U MAC #### Testing performed at [address] [address] URINE LEUKOTEST Negative Normal NEGATIVE [facility] Comment on above: Performed By: #### U MAC #### Testing performed at [address] [address] URINE NITRATES Negative Normal NEGATIVE [facility] Comment on above: Performed By: #### U MAC #### Testing performed at [address] [address] URINE SPEC GRAVITY >1.030 High 1.010-1.025 [facility] Comment on above: Performed By: #### U MAC #### Testing performed at [address] [address] URINE TOTAL PROTEIN Negative Normal NEGATIVE [facility] Comment on above: Performed By: #### U MAC #### Testing performed at [address] [address] Urobilinogen Qn (U) 0.2 {Sayra'U}/dL Normal 0.2-1.0 [facility] Comment on above: Performed By: #### U MAC #### Testing performed at [address] [address] 25 0H VITAMIN D LEVELon 08-21 25 0H VITAMIN D LEVEL 32.2 NG/ML Normal [facility] Comment on above: Result Comment: DEFICIENT <20 NG/ML INSUFFICIENT 20-<30 NG/ML SUFFICIENT 30-100 NG/ML POTENTIAL TOXICITY >100 NG/ML Performed By: #### E SR, HEMOG, B12, CREACT, LIP2, CMPF #### Testing performed at [address] [address] C REACTIVE PROTEINon 024 CRP [Mass/Vol] 6.8 mg/L Normal 0-10 [facility] Comment on above: Performed By: #### E SR, HEMOG, B12, CREACT, LIP2, CMPF #### Testing performed at [address] [place] [address] CBC(NO DIFF)on 09-15-2023 Erythrocyte distribution width (RBC) [Ratio] 12.7 % Normal 11.5-14.5 [facility] Comment on above: Performed By: #### E SR, HEMOG, B12, CREACT, LIP2, CMPF #### Testing performed at [address] [address] Hematocrit (Bld) [Volume fraction] 44.4 % Normal 36.0-48.0 [facility] Comment on above: Performed By: #### E SR, HEMOG, B12, CREACT, LIP2, CMPF #### Testing performed at [address] [address] Hemoglobin (Bld) [Mass/Vol] 14.9 g/dL Normal 12.0-16.0 [facility] Comment on above: Performed By: #### E SR, HEMOG, B12, CREACT, LIP2, CMPF #### Testing performed at [address] [address] MCH (RBC) [Entitic mass] 29.9 pg Normal 26.0-35.0 [facility] Comment on above: Performed By: #### E SR, HEMOG, B12, CREACT, LIP2, CMPF #### Testing performed at [address] [address] MCHC (RBC) [Mass/Vol] 33.6 g/dL Normal 27.0-37.0 [facility] Comment on above: Performed By: #### E SR, HEMOG, B12, CREACT, LIP2, CMPF #### Testing performed at [address] [address] MCV (RBC) [Entitic vol] 88.9 fL Normal 80.0-100.0 [facility] Comment on above: Performed By: #### E SR, HEMOG, B12, CREACT, LIP2, CMPF #### Testing performed at [address] [address] Platelet mean volume (Bld) [Entitic vol] 8.5 fL Normal 7.4-11.0 [facility] Comment on above: Performed By: #### E SR, HEMOG, B12, CREACT, LIP2, CMPF #### Testing performed at [address] [address] Platelets (Bld) [#/Vol] 331 10*3/uL Normal 130-400 [facility] Comment on above: Performed By: #### E SR, HEMOG, B12, CREACT, LIP2, CMPF #### Testing performed at [address] [address] RBC (Bld) [#/Vol] 4.99 10*6/uL Normal 4.0-5.4 [facility] Comment on above: Performed By: #### E SR, HEMOG, B12, CREACT, LIP2, CMPF #### Testing performed at [address] [address] WBC (Bld) [#/Vol] 6.4 10*3/uL Normal 3.6-11.0 [facility] Comment on above: Performed By: #### E SR, HEMOG, B12, CREACT, LIP2, CMPF #### Testing performed at [address] [address] CMP FASTINGon 09-15-2023 A:G RATIO 1.5 RATIO Normal [facility] Comment on above: Performed By: #### E SR, HEMOG, B12, CREACT, LIP2, CMPF #### Testing performed at [address] [address] ALBUMIN 4.8 G/dl Normal 3.5-5.0 [facility] Comment on above: Performed By: #### E SR, HEMOG, B12, CREACT, LIP2, CMPF #### Testing performed at [address] [address] ALP [Catalytic activity/Vol] 64 U/L Normal 38-126 [facility] Comment on above: Performed By: #### E SR, HEMOG, B12, CREACT, LIP2, CMPF #### Testing performed at [address] [address] ALT [Catalytic activity/Vol] 23 U/L Normal <35 [facility] Comment on above: Performed By: #### E SR, HEMOG, B12, CREACT, LIP2, CMPF #### Testing performed at [address] [address] AST [Catalytic activity/Vol] 24 U/L Normal 14-36 [facility] [facility] Comment on above: Performed By: #### E SR, HEMOG, B12, CREACT, LIP2, CMPF #### Testing performed at [address] [address] Bilirubin [Mass/Vol] 0.5 mg/dL Normal 0.2-1.3 [facility] Comment on above: Performed By: #### E SR, HEMOG, B12, CREACT, LIP2, CMPF #### [place] [address] Calcium [Mass/Vol] 9.3 mg/dL Normal 8.4-10.2 [facility] Comment on above: Performed By: #### E SR, HEMOG, B12, CREACT, LIP2, CMPF #### [place] [address] Chloride [Moles/Vol] 106 mmol/L Normal 98-107 [facility] Comment on above: Result Comment: Rosendo barnes note: Triglyceride levels of 600mg/dL or higher may positively bias chloride results by approximately 2.1 mmol Performed By: #### E SR, HEMOG, B12, CREACT, LIP2, CMPF #### [place] [address] CO2 [Moles/Vol] 27 mmol/L Normal 22-30 [facility] Comment on above: Performed By: #### E SR, HEMOG, B12, CREACT, LIP2, CMPF #### [place] [address] Creatinine [Mass/Vol] 0.71 mg/dL Normal 0.70-1.20 [facility] Comment on above: Performed By: #### E SR, HEMOG, B12, CREACT, LIP2, CMPF #### Testing performed at [address] [address] EST. GFR, 125 ml/min/1.73sq.m [facility] Comment on above: Performed By: #### E SR, HEMOG, B12, CREACT, LIP2, CMPF #### Testing performed at [address] [address] EST. GFR,Non 103 ml/min/1.73sq.m [facility] Comment on above: Performed By: #### E SR, HEMOG, B12, CREACT, LIP2, CMPF #### Testing performed at [address] [address] GFR Information Average GFR for 20-29 years old = 116. Normal [facility] Comment on above: Result Comment: Laundry Tub Maker kenroy Kidney disease, GFR = <60. Kidney failure, GFR = <15. The GFR estimate is not adjusted for extreme body surface area or acute process, nor has it been validated for women or ethnic groups other than and . Performed By: #### E SR, HEMOG, B12, CREACT, LIP2, CMPF #### Testing performed at [address] [address] Glucose [Mass/Vol] 89 mg/dL Normal 70-100 [facility] Comment on above: Result Comment: NORMAL <100 mg/dL PREDIABETES 101-126 mg/dL DIABETES 126 mg/dL or higher Performed By: #### E SR, HEMOG, B12, CREACT, LIP2, CMPF #### Testing performed at [address] [address] Potassium [Moles/Vol] 4.2 mmol/L Normal 3.5-5.1 [facility] Comment on above: Performed By: #### E SR, HEMOG, B12, CREACT, LIP2, CMPF #### Testing performed at [address] [address] Protein [Mass/Vol] 7.9 g/dL Normal 6.3-8.2 [facility] Comment on above: Performed By: #### E SR, HEMOG, B12, CREACT, LIP2, CMPF #### Testing performed at [address] [address] Sodium [Moles/Vol] 138 mmol/L Normal 137-145 [facility] Comment on above: Performed By: #### E SR, HEMOG, B12, CREACT, LIP2, CMPF #### Testing performed at [address] [address] Urea nitrogen [Mass/Vol] 14 mg/dL Normal 7-20 [facility] Comment on above: Performed By: #### E SR, HEMOG, B12, CREACT, LIP2, CMPF #### Testing performed at [address] [address] ESRon 09-15-2023 ESR (Bld) [Velocity] 5 mm/h Normal 0-15 [facility] Comment on above: Performed By: #### E SR, HEMOG, B12, CREACT, LIP2, CMPF #### Testing performed at [address] [address] LIPID PROFILEon 09-15-2023 Cholesterol [Mass/Vol] 240 mg/dL High 107-217 [facility] Comment on above: Performed By: #### E SR, HEMOG, B12, CREACT, LIP2, CMPF #### Testing performed at [address] [address] Cholesterol in HDL [Mass/Vol] 43 mg/dL Normal 33-75 [facility] Comment on above: Performed By: #### E SR, HEMOG, B12, CREACT, LIP2, CMPF #### Testing performed at [address] [address] Cholesterol in LDL [Mass/Vol] 163 mg/dL High <100 [facility] Comment on above: Performed By: #### E SR, HEMOG, B12, CREACT, LIP2, CMPF #### Testing performed at [address] [address] Cholesterol in VLDL [Mass/Vol] 34 mg/dL High 5-25 [facility] Comment on above: Performed By: #### E SR, HEMOG, B12, CREACT, LIP2, CMPF #### Testing performed at [address] [address] Cholesterol.total/Choles terol in HDL [Mass ratio] 5.58 {ratio} Normal [facility] Comment on above: Result Comment: RISK TOTAL/HDL RATIO MEN WOMEN 1/2 AVERAGE 3.43 3.27 AVERAGE 4.97 4.44 2X AVERAGE 9.55 7.05 3X AVERAGE 23.99 11.04 Performed By: #### E SR, HEMOG, B12, CREACT, LIP2, CMPF #### Testing performed at [address] [address] Triglyceride [Mass/Vol] 171 mg/dL High 0-150 [facility] Comment on above: Performed By: #### E SR, HEMOG, B12, CREACT, LIP2, CMPF #### Testing performed at [address] [address] TSH,REFLEX FREE T4on 024 TSH,REFLEX FREE T4 2.540 uIU/ML Normal 0.465-4.680 [facility] Comment on above: Performed By: #### E SR, HEMOG, B12, CREACT, LIP2, CMPF #### Testing performed at [address] [address] VITAMIN B12on 09-15-2023 Cobalamin (Vitamin B12) [Mass/Vol] 422 pg/mL Normal 239-931 [facility] Comment on above: Performed By: #### E SR, HEMOG, B12, CREACT, LIP2, CMPF #### Testing performed at [address] [address] HPVon 03-05-2023 HPV Negative [facility] Comment on above: Result Comment: Refe rence range: Negative (NOTE) This nucleic acid amplification test detects fourteen high-risk HPV types (16,18,31,33,35,39,45,51,52,56,58,59,66,68) without differentiation. No. of containers..01 ThinPrep Vial PERFORMED AT [facility] PAP IG,RFX HPV ASCUon 2022 . . Normal [facility] . Comment [facility] Comment on above: Result Comment: See below for HPV testing results. DIAGNOSIS: Comment [facility] Comment on above: Result Comment: (NOT E) EPITHELIAL CELL ABNORMALITY. ATYPICAL SQUAMOUS CELLS OF UNDETERMINED SIGNIFICANCE (ASC-US). ELECTRONICALLY SIGNED BY: Comment [facility] Comment on above: Result Comment: Roya Dodson MD, Pathologist NOTE: Comment [facility] Comment on above: Result Comment: (NOT E) The Pap smear is a screening test designed to aid in the detection of premalignant and malignant conditions of the uterine cervix. It is not a diagnostic procedure and should not be used as the sole means of detecting cervical cancer. Both false-positive and false-negative reports do occur. PATH PROVIDED ICD10: Comment [facility] Comment on above: Result Comment: R87. [id number] PERFORMED BY: Comment [facility] Comment on above: Result Comment: Noy Jordan, Paper Baling Machine Operator (ASCP) RECOMMENDATION: Comment Abnormal [facility] Comment on above: Result Comment: Sugg est follow up as clinically appropriate. SPECIMEN ADEQUACY: Comment Normal [facility] Comment on above: Result Comment: (NOT E) Satisfactory for evaluation. Endocervical and/or squamous metaplastic cells (endocervical component) are present. TEST METHODOLOGY: Comment [facility] Comment on above: Result Comment: (NOT E) This liquid based ThinPrep(R) pap test was screened with the use of an image guided system. PERFORMED AT [facility] IUD REMOVALon 02-25-2023 Karol Rosenthal MD 02/25/2023 3:27 PM IUD REMOVAL Date/Time: 02/25/2023 2:45 PM Performed by: Karol Rosenthal MD Authorized by: Karol Rosenthal MD Consent: The patient was given a verbal description of the intended procedure including the risks and benefits of the procedure. The patient was then able to provide written informed consent for the above procedure. The risks and benefits on the procedure were discussed. Procedure: Speculum was inserted and cervix was visualized. IUD strings were not visualized. Cyto brush was/were used to locate the IUD strings. Successful: yes The IUD was grasped and successfully removed. Were there complications: no IUD removal due to desire for fertility. IUD removal due to personal preference. Post-procedure: The patient tolerated the procedure well. The patient was advised to call for any fever, severe pain or heavy bleeding. She was advised to use over the counter analgesics as needed for mild to moderate pain. Comments: Post procedure instructions given [facility] Radiology Study observation (narrative) [facility] Provider Note - ED v3on 02-20 Provider Note - ED v3 Provider Note: Chart Review: HISTORY OF PRESENTING ILLNESS YUSRA is a 27 year old Female and was seen by me at 19-Mar-2022 14:59 for a chief complaint of ear pain. The historian is the patient. Triage Information: Most recent Vital Sign Value Date Presenting Symptoms: congestion, earache and sore throat.Located in the right and ear(s) area. Quality is aching and pressure. Context is Unknown. Duration is 1 week(s). The timing is gradual onset and constant. Modifying factors: Better with OTC medication (lidocaine drops APAP for pain).Pertinent history is (elevated BMI using wegovy). PAST MEDICAL HISTORY CURRENT OR FORMER SUBSTANCE USE: Alcohol Use: denies Drug Use: denies,Drug 2 Use: denies ALLERGIES/INTOLERANC ES: Allergy Allergen: Augmentin Type: Drug Reaction: Hives/Urticaria Allergen: Mushrooms Type: Food Reaction: Hives/Urticaria HEALTH HISTORY: No documented data. OUTPATIENT MEDICATIONS: Home Medications Review Status for Reconciliation: Complete Med Status: Patient Currently Takes Medications Drug Name: Effexor Instructions: null Drug Name: Wegovy (2.4 mg dose) subcutaneous solution Instructions: null Drug Name: predniSONE 10 mg oral tablet Instructions: 3 tab(s) orally once a day in the morning with plenty of water for 7d Drug Name: Flonase 50 mcg/inh nasal spray Instructions: 1 spray(s) in each nostril once a day SIGNIFICANT EVENTS: No documented data. ROAD TESTER: Last Menstrual Period: 05-Mar-2022 Is : no REVIEW OF SYSTEMS CONSTITUTIONAL: Negative for: chills, fever and malaise ENMTEars: POSITIVE for: pain Nose: POSITIVE for: congestion and discharge Throat/Neck: POSITIVE for: throat pain RESPIRATORY: POSITIVE for: cough GASTROINTESTINAL: Negative for: diarrhea, nausea and vomiting; MUSCULOSKELETAL: Negative for: pain NEUROLOGICAL: POSITIVE for: headache (frontal sinus right sided.); Negative for: dizziness; PHYSICAL EXAM CONSTITUTIONAL: Well appearing, well nourished, awake, alert, oriented to person, place, time/situation and in no apparent distress. HENMT: Head Examination: atraumatic Face: no signs of abnormality Ear: - BILATERAL TM's CLEAR (EAC b/l and TM normal no pre/post auricular LN no mastoid tenderness.) Nose: INFLAMMATION Mouth: normal mouth inspection Throat: normal pharynx EYES: Clear bilaterally, pupils equal, round and reactive to light. CARDIOVASCULAR: Normal rate, regular rhythm. Heart sounds S1, S2. No murmurs, rubs or gallops. RESPIRATORY: Breath sounds clear and equal bilaterally. MUSCULOSKELETAL: Spine appears normal, range of motion is not limited, no muscle or joint tenderness. NEUROLOGICAL: Alert and oriented, no focal deficits, no motor or sensory deficits. SKIN: Skin normal color for race, warm, dry and intact. No evidence of trauma. HEME/LYMPH: no cervical, supraclavicular, pre/post auricular, occipital lymphadenopathy. noted b/l NT & mildly enlarged 2cm submandibular LN CRITICAL CARE VITAL SIGNS: T PRBP SpO2O2(LPM) %FiO2 Method 19-Mar-2022 15:04:[id number] /84 [id number] MDM MDM/ED COURSE: 1) acute sinusitis with eustachian tube dysfunction: Patient be treated with prednisone and Flonase, encouraged to push fluids, use Tylenol and ibuprofen as needed for pain control, she is encouraged to use Mucinex [id number] for decongestant options. She agrees plan of care she was discharged. Centro Criteria: 0 points; 1% - 2.5% likelihood of strep; No further testing nor antibiotics.Differen tial Diagnosis: influenza, laryngitis, otitis externa, otitis media, pharyngitis, rhinitis, sinusitis and tonsillitis (eustachian tube dysfunction) Discussed Findings with: patient and family Data Reviewed: vital signs Conducted Detailed Discussion with Patient and/or Guardian Regarding: need for outpatient follow-up Special Observations: no evidence of discomfort and smiling DISPOSITION Diagnosis/Annotation : ED Dx Name:Acute sinusitis Code:J01.90 Name:Dysfunction of right eustachian tube Code:H69.81 Name:Acute pharyngitis Code:J02.9 Disposition: discharged CONSULT CRITICAL CARE TIME Is this a critically ill patient: no Electronic Signatures: Kamlesh Meehan (PAC) (Signed 19-Mar-2022 15:39) Authored: HPI, PMH, ROS, PE, Results/Vital Signs, MDM/ED Course, Clinical Impression, Attestation, Chart Review, Scores Last Updated: 19-Mar-2022 15:39 by Kamlesh Meehan (PAC) Normal [facility] Vital Signs Date Time Vital Sign Value Performing Clinician Facility 07-14-2024 21:32-0400 Body temperature 97.9 [degF] No Primary Care Physician [facility] 07-14-2024 21:32-0400 Diastolic blood pressure 82 mm[Hg] No Primary Care Physician [facility] 07-14-2024 21:32-0400 Heart rate 81 /min No Primary Care Physician [facility] 07-14-2024 21:32-0400 Respiratory rate 16 /min No Primary Care Physician [facility] 07-14-2024 21:32-0400 SaO2% (BldA) [Mass fraction] 99 % No Primary Care Physician [facility] 07-14-2024 21:32-0400 Systolic blood pressure 134 mm[Hg] No Primary Care Physician [facility] 07-13-2024 07:13-0400 Body height 162.56 cm No Primary Care Physician [facility] 07-13-2024 07:13-0400 Body mass index (BMI) [Ratio] 47.7 kg/m2 No Primary Care Physician [facility] 07-13-2024 07:13-0400 Body weight 126.09 kg No Primary Care Physician [facility] 07-07-2024 12:53-0400 Body mass index (BMI) [Ratio] 47.4 kg/m2 No Primary Care Physician [facility] 07-07-2024 12:53-0400 Body weight 125.36 kg No Primary Care Physician [facility] 07-07-2024 12:53-0400 Diastolic blood pressure 79 mm[Hg] No Primary Care Physician [facility] 07-07-2024 12:53-0400 Systolic blood pressure 128 mm[Hg] No Primary Care Physician [facility] 06-30-2024 09:51-0400 Body height 162.56 cm No Primary Care Physician [facility] 06-30-2024 09:51-0400 Body mass index (BMI) [Ratio] 47.1 kg/m2 No Primary Care Physician [facility] 06-30-2024 09:51-0400 Body weight 124.51 kg No Primary Care Physician [facility] 06-30-2024 09:51-0400 Diastolic blood pressure 83 mm[Hg] No Primary Care Physician [facility] 06-30-2024 09:51-0400 Systolic blood pressure 132 mm[Hg] No Primary Care Physician [facility] 06-23-2024 08:58-0400 Body height 162.56 cm No Primary Care Physician [facility] 06-23-2024 08:58-0400 Body mass index (BMI) [Ratio] 46.8 kg/m2 No Primary Care Physician [facility] 06-23-2024 08:58-0400 Body weight 123.83 kg No Primary Care Physician [facility] 06-23-2024 08:58-0400 Diastolic blood pressure 79 mm[Hg] No Primary Care Physician [facility] 06-23-2024 08:58-0400 Systolic blood pressure 134 mm[Hg] No Primary Care Physician [facility] 06-19-2024 14:21-0400 Diastolic blood pressure 72 mm[Hg] No Primary Care Physician [facility] 06-19-2024 14:21-0400 Heart rate 68 /min No Primary Care Physician [facility] 06-19-2024 14:21-0400 Systolic blood pressure 132 mm[Hg] No Primary Care Physician [facility] 06-19-2024 14:20-0400 SaO2% (BldA) [Mass fraction] 100 % No Primary Care Physician [facility] 06-19-2024 13:56-0400 Body height 162.56 cm No Primary Care Physician [facility] 06-19-2024 13:56-0400 Body mass index (BMI) [Ratio] 46.3 kg/m2 No Primary Care Physician [facility] 06-19-2024 13:56-0400 Body weight 122.46 kg No Primary Care Physician [facility] 06-19-2024 13:49-0400 Body temperature 98 [degF] No Primary Care Physician [facility] 06-19-2024 13:49-0400 Respiratory rate 18 /min No Primary Care Physician [facility] 06-12-2024 09:24-0400 Body height 162.56 cm No Primary Care Physician [facility] 06-12-2024 09:22-0400 Body mass index (BMI) [Ratio] 46.5 kg/m2 No Primary Care Physician [facility] 06-12-2024 09:22-0400 Body weight 123.09 kg No Primary Care Physician [facility] 06-12-2024 09:22-0400 Diastolic blood pressure 68 mm[Hg] No Primary Care Physician [facility] 06-12-2024 09:22-0400 Systolic blood pressure 123 mm[Hg] No Primary Care Physician [facility] 05-29-2024 15:15-0400 Body height 162.56 cm No Primary Care Physician [facility] 05-29-2024 15:15-0400 Body mass index (BMI) [Ratio] 45.8 kg/m2 No Primary Care Physician [facility] 05-29-2024 15:15-0400 Body weight 121.1 kg No Primary Care Physician [facility] 05-29-2024 15:15-0400 Diastolic blood pressure 85 mm[Hg] No Primary Care Physician [facility] 05-29-2024 15:15-0400 Systolic blood pressure 138 mm[Hg] No Primary Care Physician [facility] 04-17-2024 08:26-0500 Body mass index (BMI) [Ratio] 45.3 kg/m2 No Primary Care Physician [facility] 04-17-2024 08:26-0500 Body weight 119.97 kg No Primary Care Physician [facility] 04-17-2024 08:26-0500 Body weight 119.91 kg No Primary Care Physician [facility] 04-17-2024 08:26-0500 Diastolic blood pressure 79 mm[Hg] No Primary Care Physician [facility] 04-17-2024 08:26-0500 Diastolic blood pressure 78 mm[Hg] No Primary Care Physician [facility] 04-17-2024 08:26-0500 Systolic blood pressure 126 mm[Hg] No Primary Care Physician [facility] 04-17-2024 08:26-0500 Systolic blood pressure 133 mm[Hg] No Primary Care Physician [facility] 03-20-2024 08:53-0500 Body mass index (BMI) [Ratio] 44.6 kg/m2 No Primary Care Physician [facility] 03-20-2024 08:53-0500 Body weight 118.04 kg No Primary Care Physician [facility] 03-20-2024 08:53-0500 Diastolic blood pressure 70 mm[Hg] No Primary Care Physician [facility] 03-20-2024 08:53-0500 Systolic blood pressure 122 mm[Hg] No Primary Care Physician [facility] 02-28-2024 11:39-0500 Body mass index (BMI) [Ratio] 43.4 kg/m2 No Primary Care Physician [facility] 02-28-2024 11:39-0500 Body weight 114.98 kg No Primary Care Physician [facility] 02-28-2024 11:39-0500 Diastolic blood pressure 84 mm[Hg] No Primary Care Physician [facility] 02-28-2024 11:39-0500 Systolic blood pressure 139 mm[Hg] No Primary Care Physician [facility] 11-26-2023 02:23-0400 Body temperature 98.29 [degF] Robyn Marker DO Work Phone: [facility] 11-26-2023 02:23-0400 Diastolic blood pressure 58 mm[Hg] Robyn Marker DO Work Phone: [facility] 11-26-2023 02:23-0400 Heart rate 97 /min Robyn Marker DO Work Phone: [facility] 11-26-2023 02:23-0400 Respiratory rate 14 /min Robyn Marker DO Work Phone: [facility] 11-26-2023 02:23-0400 SaO2% (BldA) [Mass fraction] 99 % Robyn Marker DO Work Phone: [facility] 11-26-2023 02:23-0400 Systolic blood pressure 120 mm[Hg] Robyn Marker DO Work Phone: [facility] 11-25-2023 22:04-0400 Body height 162.6 cm Robyn Marker DO Work Phone: [facility] 11-25-2023 22:04-0400 Body mass index (BMI) [Ratio] 40.34 kg/m2 Robyn Marker DO Work Phone: [facility] 11-25-2023 22:04-0400 Body weight 106.59 kg Robyn Marker DO Work Phone: [facility] 10-18-2023 08:48-0400 Diastolic blood pressure 80 mm[Hg] Nydia Zazueta OPERATING SYSTEM DESIGNER-COURTESY CLERK Work Phone: [facility] 10-18-2023 08:48-0400 Systolic blood pressure 120 mm[Hg] Nydia Zazueta OPERATING SYSTEM DESIGNER-COURTESY CLERK Work Phone: [facility] 10-18-2023 08:29-0400 Body height 162.6 cm Nydia Zazueta APRN-COURTESY CLERK Work Phone: [facility] 10-18-2023 08:29-0400 Body mass index (BMI) [Ratio] 40.78 kg/m2 Nydia Zazueta OPERATING SYSTEM DESIGNER-COURTESY CLERK Work Phone: [facility] 10-18-2023 08:29-0400 Body temperature 97.2 [degF] Nydia Zazueta OPERATING SYSTEM DESIGNER-COURTESY CLERK Work Phone: [facility] 10-18-2023 08:29-0400 Body weight 107.78 kg Nydia Zazueta OPERATING SYSTEM DESIGNER-COURTESY CLERK Work Phone: [facility] 10-18-2023 08:29-0400 Heart rate 85 /min Nydia Zazueta APRN-COURTESY CLERK Work Phone: [facility] 10-18-2023 08:29-0400 Respiratory rate 14 /min Nydia Zazueta APRN-COURTESY CLERK Work Phone: [facility] 10-18-2023 08:29-0400 SaO2% (BldA) [Mass fraction] 97 % Nydia Zazueta APRN-COURTESY CLERK Work Phone: [facility] 09-13-2023 08:54-0400 Body height 162.6 cm Nancy Sam APRN-COURTESY CLERK Work Phone: [facility] 09-13-2023 08:54-0400 Body mass index (BMI) [Ratio] 40.96 kg/m2 Nancy Sam OPERATING SYSTEM DESIGNER-COURTESY CLERK Work Phone: [facility] 09-13-2023 08:54-0400 Body temperature 97.9 [degF] Nancy Sam OPERATING SYSTEM DESIGNER-COURTESY CLERK Work Phone: [facility] 09-13-2023 08:54-0400 Body weight 108.23 kg Nancy Sam OPERATING SYSTEM DESIGNER-COURTESY CLERK Work Phone: [facility] 09-13-2023 08:54-0400 Diastolic blood pressure 78 mm[Hg] Nancy Sam OPERATING SYSTEM DESIGNER-COURTESY CLERK Work Phone: [facility] 09-13-2023 08:54-0400 Heart rate 96 /min Nancy Sam OPERATING SYSTEM DESIGNER-COURTESY CLERK Work Phone: [facility] 09-13-2023 08:54-0400 SaO2% (BldA) [Mass fraction] 96 % Nancy Sam OPERATING SYSTEM DESIGNER-COURTESY CLERK Work Phone: [facility] 09-13-2023 08:54-0400 Systolic blood pressure 112 mm[Hg] Nancy Sam OPERATING SYSTEM DESIGNER-COURTESY CLERK Work Phone: [facility] 06-01-2023 15:54-0400 Body height 162.6 cm Kamlesh Zoran PA-C Work Phone: [facility] 06-01-2023 15:54-0400 Body mass index (BMI) [Ratio] 39.48 kg/m2 Kamlesh Zoran PA-C Work Phone: [facility] 06-01-2023 15:54-0400 Body temperature 98.4 [degF] Kamlesh Zoran PA-C Work Phone: [facility] 06-01-2023 15:54-0400 Body weight 104.33 kg Kamlesh Zoran PA-C Work Phone: [facility] 06-01-2023 15:54-0400 Diastolic blood pressure 90 mm[Hg] Kamlesh Zoran PA-C Work Phone: [facility] 06-01-2023 15:54-0400 Heart rate 84 /min Kamlesh Zoran PA-C Work Phone: [facility] 06-01-2023 15:54-0400 Respiratory rate 16 /min Kamlesh Zoran PA-C Work Phone: [facility] 06-01-2023 15:54-0400 SaO2% (BldA) [Mass fraction] 96 % Kamlesh Meehan PA-C Work Phone: [facility] 06-01-2023 15:54-0400 Systolic blood pressure 131 mm[Hg] Kamlesh Meehan PA-C Work Phone: [facility] 02-25-2023 15:01-0500 Body height 162.6 cm Karol Rosenthal MD Work Phone: [facility] 02-25-2023 15:01-0500 Body mass index (BMI) [Ratio] 38.62 kg/m2 Karol Rosenthal MD Work Phone: [facility] 02-25-2023 15:01-0500 Body weight 102.06 kg Karol Rosenthal MD Work Phone: [facility] 02-25-2023 15:01-0500 Diastolic blood pressure 82 mm[Hg] Karol Rosenthal MD Work Phone: [facility] 02-25-2023 15:01-0500 Heart rate 75 /min Karol Rosenthal MD Work Phone: [facility] 02-25-2023 15:01-0500 Systolic blood pressure 125 mm[Hg] Karol Rosenthal MD Work Phone: [facility] [facility] 04-26-2022 09:16-0500 Body height 162.6 cm Lelia Treviño APRN-COURTESY CLERK Work Phone: [facility] 04-26-2022 09:16-0500 Body mass index (BMI) [Ratio] 37.02 kg/m2 Lelia Treviño OPERATING SYSTEM DESIGNER-COURTESY CLERK Work Phone: [facility] 04-26-2022 09:16-0500 Body temperature 98.49 [degF] Lelia Treviño APRN-COURTESY CLERK Work Phone: [facility] 04-26-2022 09:16-0500 Body weight 97.84 kg Lelia Treviño OPERATING SYSTEM DESIGNER-COURTESY CLERK Work Phone: [facility] 04-26-2022 09:16-0500 Diastolic blood pressure 89 mm[Hg] Lelia Treviño OPERATING SYSTEM DESIGNER-COURTESY CLERK Work Phone: [facility] 04-26-2022 09:16-0500 Heart rate 111 /min Lelia Treviño OPERATING SYSTEM DESIGNER-COURTESY CLERK Work Phone: [facility] 04-26-2022 09:16-0500 Respiratory rate 18 /min Lelia Treviño OPERATING SYSTEM DESIGNER-COURTESY CLERK Work Phone: [facility] 04-26-2022 09:16-0500 SaO2% (BldA) [Mass fraction] 97 % Lelia Treviño OPERATING SYSTEM DESIGNER-COURTESY CLERK Work Phone: [facility] 04-26-2022 09:16-0500 Systolic blood pressure 132 mm[Hg] Lelia Treviño OPERATING SYSTEM DESIGNER-COURTESY CLERK Work Phone: [facility] 03-19-2022 17:04-0500 Body height 166.3 cm Dillan Tavallaee Other Phone: [facility] 03-19-2022 17:04-0500 Body temperature 97.34 [degF] Dillan Tavallaee Other Phone: [facility] 03-19-2022 17:04-0500 Diastolic blood pressure 84 mm[Hg] Dillan Tavallaee Other Phone: [facility] 03-19-2022 17:04-0500 Heart rate 82 /min Dillan Tavallaee Other Phone: [facility] 03-19-2022 17:04-0500 Respiratory rate 16 /min Dillan Tavallaee Other Phone: [facility] 03-19-2022 17:04-0500 SaO2% (BldA) [Mass fraction] 97 % Dillan Tavallaee Other Phone: [facility] 03-19-2022 17:04-0500 Systolic blood pressure 134 mm[Hg] Dillan Reese Other Phone: [facility] 11-28-2021 08:41-0400 Body height 162.6 cm Nancywally Sam OPERATING SYSTEM DESIGNER-COURTESY CLERK Work Phone: [facility] 11-28-2021 08:41-0400 Body mass index (BMI) [Ratio] 40.17 kg/m2 Nancywally Sam OPERATING SYSTEM DESIGNER-COURTESY CLERK Work Phone: [facility] 11-28-2021 08:41-0400 Body temperature 96.91 [degF] Nanycwally Sam OPERATING SYSTEM DESIGNER-COURTESY CLERK Work Phone: [facility] 11-28-2021 08:41-0400 Body weight 106.14 kg Nancywally Sam OPERATING SYSTEM DESIGNER-COURTESY CLERK Work Phone: [facility] 11-28-2021 08:41-0400 Diastolic blood pressure 70 mm[Hg] Nancywally Sam OPERATING SYSTEM DESIGNER-COURTESY CLERK Work Phone: [facility] 11-28-2021 08:41-0400 Heart rate 105 /min Nancywally Sam OPERATING SYSTEM DESIGNER-COURTESY CLERK Work Phone: [facility] 11-28-2021 08:41-0400 SaO2% (BldA) [Mass fraction] 97 % Nancywally Sam OPERATING SYSTEM DESIGNER-COURTESY CLERK Work Phone: [facility] 11-28-2021 08:41-0400 Systolic blood pressure 126 mm[Hg] Nancywally Sam OPERATING SYSTEM DESIGNER-COURTESY CLERK Work Phone: [facility] 09-08-2021 15:15-0400 Body mass index (BMI) [Ratio] 42.57 kg/m2 Nancywally Sam OPERATING SYSTEM DESIGNER-COURTESY CLERK Work Phone: [facility] 09-08-2021 15:15-0400 Body temperature 97.3 [degF] Nancywally Sam OPERATING SYSTEM DESIGNER-COURTESY CLERK Work Phone: [facility] 09-08-2021 15:15-0400 Body weight 112.49 kg Nancywally Sam OPERATING SYSTEM DESIGNER-COURTESY CLERK Work Phone: [facility] 09-08-2021 15:15-0400 Diastolic blood pressure 62 mm[Hg] Nancy Liz OPERATING SYSTEM DESIGNER-COURTESY CLERK Work Phone: [facility] 09-08-2021 15:15-0400 Heart rate 84 /min Nancywally Sam OPERATING SYSTEM DESIGNER-COURTESY CLERK Work Phone: [facility] 09-08-2021 15:15-0400 SaO2% (BldA) [Mass fraction] 97 % Nancywally Sam OPERATING SYSTEM DESIGNER-COURTESY CLERK Work Phone: [facility] 09-08-2021 15:15-0400 Systolic blood pressure 114 mm[Hg] Nancywally Sam OPERATING SYSTEM DESIGNER-COURTESY CLERK Work Phone: [facility] 06-16-2021 16:02-0400 Body mass index (BMI) [Ratio] 44.29 kg/m2 Nancywally Sam OPERATING SYSTEM DESIGNER-COURTESY CLERK Work Phone: [facility] 06-16-2021 16:02-0400 Body temperature 97.59 [degF] Nancy Sam OPERATING SYSTEM DESIGNER-COURTESY CLERK Work Phone: [facility] 06-16-2021 16:02-0400 Body weight 117.03 kg Nancywally Sam OPERATING SYSTEM DESIGNER-COURTESY CLERK Work Phone: [facility] 06-16-2021 16:02-0400 Diastolic blood pressure 72 mm[Hg] Nancywally Sam OPERATING SYSTEM DESIGNER-COURTESY CLERK Work Phone: [facility] 06-16-2021 16:02-0400 Heart rate 94 /min Nancywally Sam OPERATING SYSTEM DESIGNER-COURTESY CLERK Work Phone: [facility] 06-16-2021 16:02-0400 SaO2% (BldA) [Mass fraction] 96 % Nancywally Sam OPERATING SYSTEM DESIGNER-COURTESY CLERK Work Phone: [facility] 06-16-2021 16:02-0400 Systolic blood pressure 126 mm[Hg] Nancy Sam OPERATING SYSTEM DESIGNER-COURTESY CLERK Work Phone: [facility] 11-27-2020 18:47-0400 Body height 162.5 cm Dillan Tavallaee Other Phone: [facility] 11-27-2020 18:47-0400 Body temperature 98.78 [degF] Dillan Tavallaee Other Phone: [facility] 11-27-2020 18:47-0400 Diastolic blood pressure 96 mm[Hg] Dillan Tavallaee Other Phone: [facility] 11-27-2020 18:47-0400 Heart rate 104 /min Dillan Tavallaee Other Phone: [facility] 11-27-2020 18:47-0400 Respiratory rate 16 /min Dillan Tavallaee Other Phone: [facility] 11-27-2020 18:47-0400 SaO2% (BldA) [Mass fraction] 100 % Dillan Tavallaee Other Phone: [facility] 11-27-2020 18:47-0400 Systolic blood pressure 140 mm[Hg] Dillan Tavallaee Other Phone: [facility] Encounters Encounter Date Encounter Type Care Provider Facility Start: 08-24-2024 ambulatory Nancy Sam Facility: [facility] Start: 07-20-2024 End: 07-20-2024 ambulatory SELF REFERRED [facility] Start: 07-14-2024 ambulatory Nancy Sam Facility: [facility] Start: 07-14-2024 Non-patient / Non-visit Delisa arndt CNM -[facility] Start: 07-13-2024 Non-patient / Non-visit Dr. Yoselin Mtz MD -[facility] Start: 07-13-2024 End: 07-14-2024 Evaluation and management of inpatient Dr. Stephanie Mtz [facility] Work Phone: Start: 07-13-2024 ambulatory Delisa Galindo y:[facility] Start: 07-10-2024 End: 07-10-[address] Stephanie Mtz MD -[facility] Work Phone: Start: 07-10-2024 End: 07-10-2024 ambulatory Nancy Towson Facility:[facility] Start: 07-07-2024 End: 07-07-[address] Stephanie Mtz MD -[facility] Work Phone: Start: 07-07-2024 End: 07-07-2024 ambulatory Nancy Towson Facility:[facility] Start: 07-03-2024 End: 07-03-2024 ambulatory No Primary Care Physician [facility] Work Phone: Start: 07-03-2024 End: 07-03-[address] Stephanie Mtz MD -[facility] Work Phone: Start: 07-03-2024 ambulatory Nancy Towson Facility: [facility] Start: 07-03-2024 End: 07-03-2024 ambulatory [facility] Facility:[facility] Start: 06-30-2024 End: 06-30-[address] Britany Davalos DO -[facility] Work Phone: Start: 06-30-2024 End: 06-30-2024 ambulatory Nancy Towson Facility:[facility] Start: 06-27-2024 End: 06-27-2024 ambulatory No Primary Care Physician [facility] Work Phone: Start: 06-27-2024 End: 06-27-[address] Stephanie Mtz MD -Ultrasound, [facility] Work Phone: Start: 06-27-2024 End: 06-27-[facility] Start: 06-23-2024 End: 06-23-2024 ambulatory No Primary Care Physician [facility] Work Phone: Start: 06-23-2024 End: 06-23-2024 Patient encounter procedure Lara Cespedes CNM -Laboratory, Specimen Work Phone: Start: 06-23-2024 End: 06-23-2024 Patient encounter procedure Lara Cespedes CNM -[facility] Work Phone: Start: 06-23-2024 End: 06-23-2024 ambulatory Nancy Towson Facility:[facility] Start: 06-23-2024 End: 06-23-2024 ambulatory [facility] Facility:[facility] Start: 06-19-2024 ambulatory [facility] Facility: [facility] Start: 06-19-2024 Non-patient / Non-visit Lara Aldridge id CN -[facility] Start: 06-19-2024 End: 06-19-2024 Patient encounter procedure Lara Cespedes CNM -[facility] Work Phone: Start: 06-19-2024 End: 06-19-2024 ambulatory No Primary Care Physician [facility] Work Phone: Start: 06-12-2024 End: 06-12-2024 ambulatory No Primary Care Physician [facility] Work Phone: Start: 06-12-2024 End: 06-12-[address] Stephanie Mtz MD -[facility] Work Phone: Start: 06-12-2024 End: 06-12-[address] Britany Davalos DO -[facility] Work Phone: Start: 06-12-2024 End: 06-12-2024 ambulatory No Primary Care Physician Facility:[facility] Start: 06-12-2024 End: 06-12-2024 ambulatory Stephanie Mtz Facility:[facility] Start: 05-29-2024 End: 05-29-2024 Patient encounter procedure Lara Cespedes CNM -[facility] Work Phone: Start: 05-29-2024 End: 05-29-2024 ambulatory No Primary Care Physician Facility:[facility] Start: 05-23-2024 End: 05-23-2024 ambulatory No Primary Care Physician [facility] Work Phone: Start: 05-23-2024 End: 05-23-[address] Stephanie Mtz MD -Ultrasound, [facility] Work Phone: Start: 05-23-2024 End: 05-23-2024 ambulatory Stephanie Mtz Facility:[facility] Start: 05-15-2024 End: 05-15-2024 Patient encounter procedure Lara Cespedes CNM -[facility] Work Phone: Start: 05-15-2024 End: 05-15-2024 ambulatory No Primary Care Physician Facility:[facility] Start: 04-25-2024 End: 04-25-2024 Patient encounter procedure Santa Adair CAMPAIGN MARKETING MANAGER-C -Laboratory Work Phone: Start: 04-25-2024 End: 04-25-2024 ambulatory Nancy Sam Facility:[facility] Start: 04-17-2024 End: 04-17-[address] Stephanie Mtz MD -[facility] Work Phone: Start: 04-17-2024 End: 04-17-2024 ambulatory No Primary Care Physician Facility:[facility] Start: 04-17-2024 End: 04-17-2024 ambulatory Stephanie Mtz Facility:[facility] Start: 03-20-2024 End: 03-20-[address] Britany Davalos DO -[facility] Work Phone: Start: 03-20-2024 End: 03-20-2024 ambulatory No Primary Care Physician Facility:[facility] Start: 03-10-2024 End: 03-10-2024 Patient encounter procedure Santa Adair CAMPAIGN MARKETING MANAGER-C -Ultrasound, [facility] Work Phone: Start: 03-10-2024 End: 03-10-2024 ambulatory No Primary Care Physician Facility:[facility] Start: 02-28-2024 End: 02-28-2024 Patient encounter procedure Santa CHRISTIANSEN -[facility] Work Phone: Start: 02-28-2024 End: 02-28-2024 ambulatory No Primary Care Physician Facility:[facility] Start: 01-25-2024 End: 01-25-2024 ambulatory No Primary Care Physician Facility:[facility] Start: 01-24-2024 End: 01-24-2024 ambulatory No Primary Care Physician Facility:[facility] Start: 12-30-2023 End: 12-30-2023 ambulatory No Primary Care Physician Facility:[facility] Start: 12-30-2023 End: 12-30-2023 ambulatory No Primary Care Physician Facility:[facility] Start: 12-17-2023 ambulatory No Primary Car e Physician Facility:[facility] Start: 11-25-2023 End: 11-26-2023 Emergency department patient visit Robyn Ruddy Young DO Work Phone: [facility] Start: 10-18-2023 End: 10-18-2023 Office outpatient visit 25 minutes Nydia Zauzeta OPERATING SYSTEM DESIGNER-COURTESY CLERK Work Phone: [facility] Comment on above: Anxiety and depressi on (Primary Dx); Elevated LDL cholesterol level; Obesity, Class III, BMI 40-49.9 (morbid obesity); Constipation, unspecified constipation type Start: 10-18-2023 ambulatory SELF SELF [facility] Start: 09-15-2023 ambulatory NANCY SAM [facility] Start: 09-13-2023 End: 09-13-2023 Office outpatient visit 25 minutes Nancy Sam OPERATING SYSTEM DESIGNER-COURTESY CLERK Work Phone: [facility] Comment on above: Depression, unspecif ied depression type (Primary Dx); Other fatigue; Anxiety disorder, unspecified type; Insomnia, unspecified type; BMI 40.0-44.9, adult; Binge eating Start: 09-13-2023 ambulatory SELF SELF [facility] Start: 06-01-2023 End: 06-01-2023 ambulatory NANCYWALLY FLORES [facility] Start: 06-01-2023 End: 03-12-2024 Patient encounter procedure Kamlesh Meehan PA-C Work Phone: [facility] Comment on above: Eustachian tube dysf unction, left (Primary Dx); Acute pharyngitis, unspecified etiology; Subacute rhinosinusitis Start: 02-25-2023 End: 02-25-2023 Initial preventive medicine new pt age 18-39yrs Karol Rosenthal MD Work Phone: [facility] [employer] Comment on above: Well woman exam with routine gynecological exam (Primary Dx); Encounter for screening for cervical cancer; Encounter for breast cancer screening using non-mammogram modality; IUD (intrauterine device) in place; Encounter for IUD removal Start: 02-25-2023 End: 02-25-2023 Patient encounter procedure Karol Rosenthal MD Work Phone: [facility] Work Phone: Start: 02-25-2023 ambulatory [facility] Start: 02-25-2023 Encounter for gynecological examination (general) (routine) without abnormal findings [facility] Start: 04-26-2022 End: 04-26-2022 Office outpatient visit 15 minutes Lelia Treviño OPERATING SYSTEM DESIGNER-COURTESY CLERK Work Phone: [facility] Comment on above: Left acute otitis me sahil (Primary Dx); Acute upper respiratory infection Start: 03-19-2022 End: 03-19-2022 Emergency department patient visit Kamlesh Meehan [facility] Start: 11-28-2021 End: 11-28-2021 Office outpatient visit 25 minutes Nancy Sam OPERATING SYSTEM DESIGNER-COURTESY CLERK Work Phone: [facility] Comment on above: Adult BMI 40.0-44.9 kg/sq m; Anxiety; Depression, unspecified depression type Start: 09-08-2021 End: 09-08-2021 Office outpatient visit 15 minutes Nancy Sam OPERATING SYSTEM DESIGNER-COURTESY CLERK Work Phone: [facility] Comment on above: Adult BMI 40.0-44.9 kg/sq m (Primary Dx); Anxiety; Depression, unspecified depression type Start: 06-16-2021 End: 06-16-2021 Office outpatient visit 25 minutes Nancy Sam OPERATING SYSTEM DESIGNER-COURTESY CLERK Work Phone: [facility] Comment on above: Anxiety (Primary Dx) ; Depression, unspecified depression type; Adult BMI 40.0-44.9 kg/sq m; Acute right-sided low back pain, unspecified whether sciatica present; Eczema, unspecified type Start: 11-27-2020 End: 11-27-2020 Emergency department patient visit Kamlesh Meehan [facility] Start: 06-24-2018 End: 06-24-2018 Patient encounter procedure Nancy Sam Work Phone: [facility] Comment on above: , unspecifi ed gestational age (Primary Dx) Start: 06-24-2018 End: 06-24-2018 Telephone encounter Nancy Sam Work Phone: [facility] Comment on above: Appointment Start: 10-30-2017 Patient encounter Facil [id number] Start: 04-13-2017 End: 04-14-2017 Ambulatory Dillan Reese Facility:[facility] Internal Medicine Procedures Date Procedure Procedure Detail Performing Clinician Start: 07-10-2024 Ultrasonography for biophysical profile without non-stress testing No Primary Care Physician Start: 07-03-2024 Ultrasonography for biophysical profile without non-stress testing No Primary Care Physician Start: 06-27-2024 Ultrasonography for biophysical profile without non-stress testing No Primary Care Physician Start: 06-23-2024 Beta-hemolytic Strep tococcus culture No Primary Care Physician Start: 06-19-2024 Ultrasonography for biophysical profile without non-stress testing No Primary Care Physician Start: 06-12-2024 Ultrasonography for biophysical profile without non-stress testing No Primary Care Physician Start: 05-23-2024 Ultrasound scan for growth No Primary Care Physician Start: 03-10-2024 Ultrasonography in f irst trimester No Primary Care Physician Start: 11-26-2023 Ct abdomen & pelvis w/contrast material Robyn Young DO Work Phone: Start: 11-26-2023 Us preg uterus real time w/image dcmtn transvag Robyn Fox Marker DO Work Phone: Start: 11-25-2023 Urinalysis, reagent strip without microscopy Robyn Fox Marker DO Work Phone: Start: 11-25-2023 End: 11-25-2023 Culture bacterial blood aerobic w/id isolates Robyn Fox Marker DO Work Phone: Start: 11-25-2023 Albumin serum plasma /whole blood Robyn Fox Marker DO Work Phone: Start: 11-25-2023 Blood typing serologic abo Robyn Fox Marker DO Work Phone: Start: 11-25-2023 Complete blood count with white cell differential, automated Robyn Fox Marker DO Work Phone: Start: 02-25-2023 Removal intrauterine device iud Gwendoline Ariadna ROSENBERG Work Phone: Start: 05-18-2020 Lipid 1996 panel - S carolann or Plasma Kamlesh Meehan PA-C Work Phone: Plan of Treatment Date Care Activity Detail Author Start: 01-05-2044 Zoster Vaccines (1 of 2) Zoste r Vaccines (1 of 2) [facility] Start: 05-18-2025 Lipid panel Lipid Panel [facility] Start: 07-14-2024 Patient discharge [facility] Start: 07-13-2024 Documentation procedure [facility] Start: 07-13-2024 Administration of medication [facility] Start: 07-13-2024 Application of ice collar, cap or bag [facility] Start: 07-13-2024 Catheterization of vein [facility] Start: 07-13-2024 Introduction of urin elísa catheter [facility] Start: 07-13-2024 Measuring intake and output [facility] Start: 07-13-2024 Notification of physician [facility] Start: 07-13-2024 Procedure discontinued [facility] Start: 07-13-2024 Provision of activit y privileges [facility] Start: 07-13-2024 Vital signs measurements [facility] Start: 07-13-2024 End: 07-13-2024 [facility] Start: 07-13-2024 Admission procedure [facility] Start: 07-13-2024 Consultation [facility] Start: 06-27-2024 Biophysical pr ofile panel US [facility] Start: 06-27-2024 Ultrasonography for biophysical profile without non-stress testing Biophysical Prof W/O Non Stres [facility] Start: 06-27-2024 Ultrasound scan for growth [facility] Start: 06-19-2024 Nonstress test [facility] Start: 06-19-2024 Obstetric monitoring [facility] Start: 06-19-2024 Vital signs measurements [facility] Start: 06-19-2024 [facility] Start: 02-26-2024 Screening for malign ant neoplasm of cervix CERVICAL CANCER SCREENING DISCUSSION [facility] Start: 12-20-2023 End: 12-20-2023 Patient encounter procedure 12/20/2023 8:20 AM EDT Office Visit [facility] [address] [place] [address] Nydia Zazueta OPERATING SYSTEM DESIGNER-COURTESY CLERK [address] [place] [address] [facility] Start: 11-25-2023 End: 11-24-2024 US Pelvis transvaginal US PELVIC W TRANSVAGINAL Imaging Routine Lower abdominal pain Expected: 11/25/2023, Expires: 11/24/2024 [facility] Comment on above: Expected: 11/25/2023 , Expires: 11/24/2024 Start: 11-21-2023 COVID-19 VACCINE ( season) COVID-19 VACCINE ( season) [facility] Start: 11-21-2023 Influenza vaccination A [facility] Start: 10-14-2023 End: 10-14-2023 Patient encounter procedure 10/14/2023 1:50 PM EDT Office Visit [facility] [address] [place] [address] Nancy Sam, OPERATING SYSTEM DESIGNER-COURTESY CLERK [address] [place] [id number] [facility] Start: 09-13-2023 End: 09-12-2024 C-reactive protein C REACTIVE PROTEIN Lab Routine Other fatigue Expected: 09/13/2023, Expires: 09/12/2024 [facility] Comment on above: Expected: 09/13/2023 , Expires: 09/12/2024 Start: 09-13-2023 End: 09-12-2024 CBC,PLATELETS CBC,PLATELETS Lab Routine Other fatigue Expected: 09/13/2023, Expires: 09/12/2024 [facility] Comment on above: Expected: 09/13/2023 , Expires: 09/12/2024 Start: 09-13-2023 End: 09-12-2024 Comprehensive metabolic 2000 panel - Serum or Plasma COMPREHENSIVE METABOLIC PANEL Lab Routine Other fatigue Expected: 09/13/2023, Expires: 09/12/2024 [facility] Comment on above: Expected: 09/13/2023 , Expires: 09/12/2024 Start: 09-13-2023 End: 09-12-2024 Cyanocobalamin vitamin b-12 VITAMIN B12 Lab Routine Other fatigue Expected: 09/13/2023, Expires: 09/12/2024 [facility] Comment on above: Expected: 09/13/2023 , Expires: 09/12/2024 Start: 09-13-2023 End: 09-12-2024 LIPID PANEL W CALCULATED LDL LIPID PANEL W CALCULATED LDL Lab Routine Other fatigue BMI 40.0-44.9, adult Expected: 09/13/2023 (Approximate), Expires: 09/12/2024 [facility] Comment on above: Expected: 09/13/2023 (Approximate), Expires: 09/12/2024 Start: 09-13-2023 End: 09-12-2024 SEDIMENTATION RATE, AUTOMATED SEDIMENTATION RATE, AUTOMATED Lab Routine Other fatigue Expected: 09/13/2023, Expires: 09/12/2024 [facility] Comment on above: Expected: 09/13/2023 , Expires: 09/12/2024 Start: 09-13-2023 End: 09-12-2024 TSH W/FT4 REFLEX TSH W/FT4 REFLEX Lab Routine Other fatigue Depression, unspecified depression type Anxiety disorder, unspecified type Insomnia, unspecified type BMI 40.0-44.9, adult Expected: 09/13/2023, Expires: 09/12/2024 [facility] Comment on above: Expected: 09/13/2023 , Expires: 09/12/2024 Start: 09-13-2023 End: 09-12-2024 VITAMIN D (25-HYDROXY,TOTAL) VITAMIN D (25-HYDROXY,TOTAL) Lab Routine Other fatigue Expected: 09/13/2023, Expires: 09/12/2024 [facility] Comment on above: Expected: 09/13/2023 , Expires: 09/12/2024 Start: 11-20-2022 COVID-19 VACCINE () COVID-19 VACCINE () [facility] Start: 11-20-2022 COVID-19 Vaccine () COVID-19 Vaccine () [facility] Start: 11-20-2022 Influenza vaccination INFLUENZA VACC INE (#1) [facility] Start: 05-22-2022 End: 05-22-2022 Patient encounter procedure 05/22/2022 Office Visit Family Medicine Nancy Sam OPERATING SYSTEM DESIGNER-COURTESY CLERK [address] [place] [id number] [facility] Start: 11-28-2021 End: 11-28-2021 Patient encounter procedure 11/28/2021 Office Visit Family Medicine Nancy Sam, OPERATING SYSTEM DESIGNER-COURTESY CLERK [address] [place] [id number] [facility] Start: 11-20-2021 Influenza vaccination A [facility] Start: 09-08-2021 End: 09-08-2021 Patient encounter procedure 09/08/2021 Office Visit Family Medicine Nancy Sam, OPERATING SYSTEM DESIGNER-COURTESY CLERK [address] [place] [id number] [facility] Start: 11-20-2020 Influenza vaccination INFLUENZA VACC INE (#1) [facility] Start: 11-20-2018 Influenza vaccination INFLUENZ A VACCINE (Season Ended) [facility] Start: 01-05-2016 DTaP/Tdap/Td Vaccine s (1 - Tdap) DTaP/Tdap/Td Vaccines (1 - Tdap) [facility] Start: 05-18-2015 Varicella vaccination Varicell a Vaccines (1 of 2 - 2-dose childhood series) [facility] Start: 2015 Screening for malign ant neoplasm of cervix [facility] Start: 2013 Hepatitis B vaccination HEP B VACCINE (1 of 3 - 19+ 3-dose series) [facility] Start: 2013 Third diphtheria, te tanus and acellular pertussis (DTaP) vaccination TDAP (ADULT) [facility] Start: 01-05-2012 Hepatitis C screening Hepatitis C Sc reening [facility] Start: 01-05-2012 Tetanus vaccination TETANUS [facility] Start: 2010 Screening for Chlamy sahil trachomatis CHLAMYDIA SCREEN [facility] Start: 2009 HIV screening HIV SCREENING DISCUSSION [facility] Start: 2009 Vaccination for eliezer n papillomavirus HPV VACCINE ADOL (1 - Female 3-dose series) [facility] Start: 2007 HIV screening HIV SCREENING DISCUSSION [facility] Start: 01-05-2000 PNEUMOCOCCAL VACCINE SERIES (1 of 2 - PPSV23) PNEUMOCOCCAL VACCINE SERIES (1 of 2 - PPSV23) [facility] Start: 1999 COVID-19 VACCINE (#1) COVID-19 VACCI NE (#1) [facility] Start: 1999 COVID-19 VACCINE (1) COVID-19 VACCIN E (1) [facility] Start: 1994 COVID-19 VACCINE (#1) COVID-19 VACCI NE (#1) [facility] Start: 1994 GONORRHEA SCREEN GONORRHEA SCREEN [facility] Start: 1994 Hepatitis B Vaccines (1 of 3 - 3-dose series) Hepatitis B Vaccines (1 of 3 - 3-dose series) [facility] Start: 1994 Hepatitis C antibody , confirmatory test HEPATITIS C VIRUS SCREENING [facility] Start: 1994 Hepatitis C screening HEPATITI S C VIRUS SCREENING [facility] Start: 1994 HIV screening HIV Screening [facility] Start: 1994 Yearly Adult Physical Yearly Adult P hycal [facility] Bacteria identified in Blood by Culture [facility] Biophysical pr ofile panel US [facility] PAP IG, RFX HPV ASCU PAP IG, RFX HPV ASCU Cytology Routine 02/25/2023 3:10 PM EST [facility] Patient Education OB Triage: Ret urn to Hospital or Notify Physician if you Experience: [facility] Work Phone: Patient referral [facility] Work Phone: End: 11-25-2023 Throat culture [facility] Comment on above: One Time for 1 Occur rences starting 11/25/2023 until 11/25/2023 Ultrasound scan for growth [facility] Immunizations Immunization Date Immunization Notes Care Provider Fa [facility] 05-29-2024 tetanus toxoid, redu pipe diphtheria toxoid, and acellular pertussis vaccine, adsorbed No Primary Care Physician [facility] 02-21-2019 influenza, injectabl e, quadrivalent, preservative free Nancy Sam OPERATING SYSTEM DESIGNER-COURTESY CLERK Work Phone: [facility] 02-21-2019 influenza virus vaccine, unspecified formulation Nancy Liz OPERATING SYSTEM DESIGNER-COURTESY CLERK Work Phone: [facility] 04-20-2015 measles, mumps and rubella virus vaccine Nancy Sam OPERATING SYSTEM DESIGNER-COURTESY CLERK Work Phone: [facility] Payers Date Payer Category Payer Self-pay 2023 Unknown [id number] 2020 Unknown [id number] 2017 Unknown 2017 Unknown [employer] M [place] xxxxxxxxxxxx 2017-Present [id number] 1994 Unknown [id number] 2.840.1.157082.3.579.2.106 9 1994 Unknown [id number] 2.840.1.547951.3.579.2.124 3 1994 Unknown [id number] 2.840.1.110399.3.579.2.983 1994 Unknown [id number] 2.840.1.306603.3.579.2.983 1994 Unknown [id number] 2.840.1.346117.3.579.2.983 1994 Unknown [id number] 2.840.1.158699.3.579.2.983 1994 Unknown [id number] .840.1.997803.3.579.2.983 1994 Unknown [id number] 2.840.1.100143.3.579.2.479 Unknown [id number] Unknown [id number] 2.840.1.667247.3.579.2.462 Unknown [id number] 2840.1.042115.3.579.2.462 Unknown [id number] 840.1.814683.3.579.2.462 Unknown [id number] .840.1.221307.3.579.2.462 Unknown [id number] 2.840.1.771734.3.579.2.462 Unknown [id number] 2.840.1.183369.3.579.2.462 Unknown [id number] 2.840.1.886648.3.579.2.462 Unknown [id number] 2840.1.180696.3.579.2.462 Unknown [id number] 2.16.840.1.156630.3.579.2.462 Unknown [id number] 2.840.1.910032.3.579.2.462 Unknown [id number] 2.16.840.1.201847.3.579.2.462 Unknown [id number] 2.16840.1.990999.3.579.2.462 Unknown [id number] 2.840.1.115128.3.579.2.462 Unknown [id number] 2.840.1.782151.3.579.2.462 Unknown [id number] 2.840.1.826651.3.579.2.462 Unknown [id number] 2.840.1.199092.3.579.2.462 Unknown [id number] 2.840.1.800396.3.579.2.462 Unknown [id number] 2.840.1.535948.3.579.2.462 Unknown [id number] 2.840.1.749434.3.579.2.462 Unknown [id number] 2.840.1.469451.3.579.2.462 Unknown [id number] 2.840.1.152048.3.579.2.462 Unknown [id number] .840.1.076827.3.579.2.462 Unknown [id number] .840.1.229520.3.579.2.462 Unknown [id number] 2.840.1.246210.3.579.2.462 Unknown [id number] 2.840.1.071215.3.579.2.462 Unknown [id number] 2.840.1.152805.3.579.2.462 Unknown [id number] 2.16.840.1.741502.3.579.2.462 Unknown [id number] 2.16.840.1.674095.3.579.2.462 Unknown [id number] 2.16.840.1.459949.3.579.2.462 Unknown [id number] 2.16.840.1.991955.3.579.2.462 Unknown [id number] 2.16840.1.076577.3.579.2.462 Social History Date Type Detail Facility Start: 12-27-2017 End: 07-19-2020 Tobacco smoking status NEIS Current some day smoker [facility] Start: 09-09-2017 Tobacco Comment social [facility] Start: 09-09-2017 Alcohol Comment rare [facility] Start: 1994 Sex Assigned At Not on file [employer] Tobacco smoking consumption unknown [facility] End: 06-08-2021 History of tobacco use Cigar Smoker [facility] Start: 07-19-2020 End: 05-22-2022 Tobacco use and exposure Smokeless tobacco non-user [facility] Start: 06-16-2021 End: 02-25-2023 Alcohol intake Current drinker of alcohol (finding) [facility] Start: 07-19-2020 End: 05-22-2022 Tobacco Comment 2-3 times a week [facility] Start: 09-08-2021 End: 07-13-2024 Tobacco smoking status NHIS Ex-smoker [facility] End: 06-08-2021 History of tobacco use Current smoker [facility] Start: 02-25-2023 End: 10-18-2023 History of Social function [facility] Start: 02-25-2023 End: 10-18-2023 Tobacco use panel [facility] Adolescent depressio n screening assessment 13 [facility] Start: 08-31-2017 Gender identity Identifies as female gender (finding) [facility] Start: 06-01-2023 Tobacco smoking stat us NHIS Never smoked tobacco [facility] Work Phone: Start: 06-01-2023 Alcohol intake Ex-drinker (finding) [facility] Work Phone: Start: 05-22-2023 End: 06-01-2023 Exposure to SARS-CoV-2 (event) Not sure [facility] Start: 09-13-2023 End: 11-25-2023 Alcoholic beverage intake Lifetime non-drinker (finding) [facility] Start: 01-13-2019 None None [facility] Start: 06-04-2024 End: 07-14-2024 Sex Female (finding) [facility] Start: 1995 Sex Assigned At Female W [facility] Medical Equipment Procedure Code Equipment Code Equipment Origin al Text Equipment Identifier Dates Blood Sugar Diagnostic (Blood Glucose Test) strip Start: 04-25-2024 Lancets misc Start: 04-25-2024 Blood Sugar Diagnostic (Blood Glucose Test) strip Start: 04-25-2024 Lancets misc Start: 04-25-2024 Blood Sugar Diagnostic (Blood Glucose Test) strip Start: 04-25-2024 Lancets misc Start: 04-25-2024 Blood Sugar Diagnostic (Blood Glucose Test) strip Start: 04-25-2024 Lancets misc Start: 04-25-2024 Blood Sugar Diagnostic (Blood Glucose Test) strip Start: 04-25-2024 Lancets misc Start: 04-25-2024 Blood Sugar Diagnostic (Blood Glucose Test) strip Start: 04-25-2024 Lancets misc Start: 04-25-2024 Blood Sugar Diagnostic (Blood Glucose Test) strip Start: 04-25-2024 Lancets misc Start: 04-25-2024 Goals Date Patient Goal Desired Activity /State Clinical Notes 06-16-2021 to 07-14-2024 Note Date & Type Note Facility 07-14-2024 Progress note Note Date/Time July 14, 2024 8:[address] [facility] Medical Records Department [address] [place] [address] Progress Note - OBGYN 07/14/24818 MR#: [id number] Acct: [id number] Name: YUSRA FUENTES Rep #:[id number] : 1995 29 From: Delisa Molina CNM PCP: Nancy Sam, CAMPAIGN MARKETING MANAGER-C Status:ADM IN Location: [id number] Subjective Subjective Patient doing well without complaints. Tolerating PO. Ambulating and voiding without difficulty. Feeding well. Denies chest pain, shortness of breath, calf pain/swelling, fevers, chills, lightheadedness. Objective Data Objective Data Vital Signs: Vital Signs Temp Pulse Resp BP Pulse Ox O2 Del Method 97.8 F 98 16 136/82 H 97 Room Air 07/14/24 03:48 07/14/24 03:48 07/14/24 03:48 07/14/24 03:48 07/14/24 03:48 07/14/24 03:48 Oxygen Delivery Method Room Air Weight: 278 lb Body Mass Index (BMI) 47.7 Intake & Output: Intake and Output for Last 24 Hours 07/12/24 07/13/24 07/14/24 23:59 23:59 23:59 Intake Total 3023.33 / 3023.33 250 / 250 Output Total 1300 / 1300 400 / 400 Balance 1723.33 / 1723.33 -150 / -150 Lab / Micro Data 07/13/24 10:30 Labs: Laboratory Results - last 24 hr 07/13/24 07:50: WBC 7.6, RBC 4.32, Hgb 12.5, Hct 37.5, MCV 86.8, MCH 28.9, MCHC 33.3, RDW Std Deviation 40.3, RDW Coeff of Xavi 12.9, Plt Count TNP, MPV 12.2 H, Immature Gran % (Auto) 0.500, Neut % (Auto) 70.6 H, Lymph % (Auto) 17.6 L, Rogers % (Auto) 9.7, Eos % (Auto) 1.3, Baso % (Auto) 0.3, Absolute Neuts (auto) 5.4, Absolute Lymphs (auto) 1.34, Nucleated RBC % 0, Platelet Estimate ADEQUATE, Syphilis Total Ab Nonreactive, Blood Type AB POSITIVE, Antibody Screen NEGATIVE 07/13/24 08:28: POC Glucose 84 07/13/24 09:33: POC Glucose 88 07/13/24 10:30: WBC 8.4, RBC 4.94, Hgb 14.3, Hct 43.0, MCV 87.0, MCH 28.9, MCHC 33.3, RDW Std Deviation 40.8, RDW Coeff of Xavi 13.0, Plt Count 276, MPV 11.1, Immature Gran % (Auto) 0.500, Neut % (Auto) 72.0 H, Lymph % (Auto) 17.8 L, Rogers % (Auto) 8.4, Eos % (Auto) 1.1, Baso % (Auto) 0.2, Absolute Neuts (auto) 6.1, Absolute Lymphs (auto) 1.50, Nucleated RBC % 0 07/13/24 13:12: POC Glucose 81 07/13/24 14:32: POC Glucose 80 07/13/24 15:37: POC Glucose 64 L 07/13/24 16:00: POC Glucose 107 H 07/13/24 16:44: POC Glucose 76 07/13/24 17:48: POC Glucose 93 07/13/24 18:40: POC Glucose 70 L 07/13/24 19:51: POC Glucose 71 L 07/13/24 20:43: POC Glucose 69 L 07/13/24 22:06: POC Glucose 91 Physical Exam Chest inspection of chest normal and inspection of breasts normal Resp normal respiratory effort and normal air movement GI normal to inspection, nondistended, normoactive bowel sounds Uterus Palpation: uterus fundus firm (below u) Extremity normal to inspection, full ROM and no calf tenderness Skin no rashes or lesions noted Psych mental status grossly normal Assessment & Plan (1) Vaginal delivery: COMMENT: SM IOL GDM girl Sarmiento PLAN: s/p PPD # 1 1. routine post delivery care 2. breast feeding- support given 3. rh positive 4. rubella immune 5. desires early d/c today if available 07/14/24 0820 <Electronically signed by Delisa Molina CNM> Cosigner Signature (if applicable): CC: ~ Signed [facility] Work Phone: 1(742) 392-370504-25-2025 Progress note [facility] Medical Records Department [address] [place] [address] Progress Note - OBGYN 07/14/24 08 MR#: [id number] Acct: [id number] Name: ALFREDOCRISTIANYUSRA RIANA Rep #:[id number] : 1995 29 From: Delisa Molina CNM PCP: Nancy Sam, CAMPAIGN MARKETING MANAGER-C Status:ADM IN Location: [id number] Subjective Subjective Patient doing well without complaints. Tolerating PO. Ambulating and voiding without difficulty. Feeding well. Denies chest pain, shortness of breath, calf pain/swelling, fevers, chills, lightheadedness. Objective Data Objective Data Vital Signs: Vital Signs Temp Pulse Resp BP Pulse Ox O2 Del Method 97.8 F 98 16 136/82 H 97 Room Air 07/14/24 03:48 07/14/24 03:48 07/14/24 03:48 07/14/24 03:48 07/14/24 03:48 07/14/24 03:48 Oxygen Delivery Method Room Air Weight: 278 lb Body Mass Index (BMI) 47.7 Intake & Output: Intake and Output for Last 24 Hours 07/12/24 07/13/24 07/14/24 23:59 23:59 23:59 Intake Total 3023.33 / 3023.33 250 / 250 Output Total 1300 / 1300 400 / 400 Balance 1723.33 / 1723.33 -150 / -150 Lab / Micro Data 07/13/24 10:30 Labs: Laboratory Results - last 24 hr 07/13/24 07:50: WBC 7.6, RBC 4.32, Hgb 12.5, Hct 37.5, MCV 86.8, MCH 28.9, MCHC 33.3, RDW Std Deviation 40.3, RDW Coeff of Xavi 12.9, Plt Count TNP, MPV 12.2 H, Immature Gran % (Auto) 0.500, Neut % (Auto) 70.6 H, Lymph % (Auto) 17.6 L, Rogers % (Auto) 9.7, Eos % (Auto) 1.3, Baso % (Auto) 0.3, AbsoluteNeuts (auto) 5.4, Absolute Lymphs (auto) 1.34, Nucleated RBC % 0, Platelet Estimate ADEQUATE, Syphilis Total Ab Nonreactive, Blood Type AB POSITIVE, Antibody Screen NEGATIVE 07/13/24 08:28: POC Glucose 84 07/13/24 09:33: POC Glucose 88 07/13/24 10:30: WBC 8.4, RBC 4.94, Hgb 14.3, Hct 43.0, MCV 87.0, MCH 28.9, MCHC 33.3, RDW Std Deviation 40.8, RDW Coeff of Xavi 13.0, Plt Count 276, MPV 11.1, Immature Gran % (Auto) 0.500, Neut % (Auto) 72.0 H, Lymph % (Auto) 17.8 L, Rogers % (Auto) 8.4, Eos % (Auto) 1.1, Baso % (Auto) 0.2, Absolute Neuts (auto) 6.1, Absolute Lymphs (auto) 1.50, Nucleated RBC % 0 07/13/24 13:12: POC Glucose 81 07/13/24 14:32: POC Glucose 80 07/13/24 15:37: POC Glucose 64 L 07/13/24 16:00: POC Glucose 107 H 07/13/24 16:44: POC Glucose 76 07/13/24 17:48: POC Glucose 93 07/13/24 18:40: POC Glucose 70 L 07/13/24 19:51: POC Glucose 71 L 07/13/24 20:43: POC Glucose 69 L 07/13/24 22:06: POC Glucose 91 Physical Exam Chest inspection of chest normal and inspection of breasts normal Resp normal respiratory effort and normal air movement GI normal to inspection, nondistended, normoactive bowel sounds Uterus Palpation: uterus fundus firm (below u) Extremity normal to inspection, full ROM and no calf tenderness Skin no rashes or lesions noted Psych mental status grossly normal Assessment & Plan (1) Vaginal delivery: COMMENT: SM IOL GDM girl Sarmiento PLAN: s/p PPD # 1 1. routine post delivery care 2. breast feeding- support given 3. rh positive 4. rubella immune 5. desires early d/c today if available 07/14/24 0820 Cosigner Signature (if applicable): CC: ~ Signed [facility]04-24-2025 Discharge summary Author Stephanie Mtz [facility] Note Date/Time July 13, 2024 9:3 4pm [facility] Medical Records Department [address] [place] [address] Instructions for Home/Discharge Instructions 07/13/242126 MR#: [id number] Acct: [id number] Name: YUSRA FUENTES Rep #:[id number] : 1995 29 From: Stephanie burgos MD PCP: KULDIP Marroquin Status:ADM IN Discharge Instructions Diet Discharge Diet: No restrictions DC O2, CPAP, BIPAP needs Home O2 Discharge instructions: No Dressing / Incision Discharge Activity: Return to Normal Activity, May Not Drive (while taking narcotic pain medications.) and May Shower May resume sexual activity in: 4-6 weeks Dressing / Incision Call your doctor if your incision/area has: Continuous Slow Oozing, Sudden Increased Bleeding, Increased Pain/ Swelling, Increased Redness and Foul Smelling Discharge Follow Up Care Please Follow Up With: Stephanie Mtz MD When: Call [phone] to make an appointment with your doctor in 6 weeks. If you had elevated blood pressure or 4th degree laceration, you will need to be seen in 2 weeks. Test Results: Test results from this visit will be discussed in further detail at your follow- up appointment, if applicable. Discharge Plan Admission Admit Date/Time: 07/13/24 06:50 Attending Provider: Stephanie Mtz Primary Care Provider: Nancy Sam Discharge Orders/Prescriptions Prescriptions: No Action metformin 500 mg tablet 500 mg PO QHS Qty: 30 6RF aspirin [Adult Low Dose Aspirin] 81 mg tablet,delayed release (DR/EC) 81 mg PO QDAY docusate sodium [Colace] 100 mg capsule 200 mg PO QDAY PRN (Reason: constipation) Prenatabs FA 1 TABLET tablet 1 tab PO DAILY (DME) Blood Glucose Test Strip See Rx Instructions .MEDSUPPLY Qty: 120 5RF Rx Instructions: As directed-fasting & 2 hr post meals (DME) blood-glucose meter Misc See Rx Instructions .MEDSUPPLY Qty: 1 0RF Rx Instructions: As directed- Test fasting and 2 hours after meals (DME) lancets Misc See Rx Instructions .MEDSUPPLY Qty: 200 5RF Rx Instructions: As directed-fasting & 2 hr post meals Referrals / Follow Up: Nancy Sam NP-C [Primary Care Provider] - Disposition Disposition (needs filled in before D/C Order can be placed): Home, Self Care 07/13/242133<Electronically signed by Stephanie Mtz MD>Stephanie Mtz MD CC: CAMPAIGN MARKETING MANAGER-C Nancy Sam ~ Signed [facility] Work Phone: 1(666) 488-108704-24-2025 Discharge summary [facility] Medical Records Department [address] [place] [address] Instructions for Home/Discharge Instructions 07/13/242126 MR#: [id number] Acct: [id number] Name: YUSRA FUENETS Rep #:[id number] : 1995 29 From: Stephanie burgos MD PCP: KULDIP Marroquin Status:ADM IN Discharge Instructions Diet Discharge Diet: No restrictions DC O2, CPAP, BIPAP needs Home O2 Discharge instructions: No Dressing / Incision Discharge Activity: Return to Normal Activity, May Not Drive (while taking narcotic pain medications.) and May Shower May resume sexual activity in: 4-6 weeks Dressing / Incision Call your doctor if your incision/area has: Continuous Slow Oozing, Sudden Increased Bleeding, Increased Pain/ Swelling, Increased Redness and Foul Smelling Discharge Follow Up Care Please Follow Up With: Stephanie Mtz MD When: Call [phone] to make an appointment with your doctor in 6 weeks. If you had elevated blood pressure or 4th degree laceration, you will need to be seen in 2 weeks. Test Results: Test results from this visit will be discussed in further detail at your follow- up appointment, if applicable. Discharge Plan Admission Admit Date/Time: 07/13/24 06:50 Attending Provider: Stephanie Mtz Primary Care Provider: Nancy Sam Discharge Orders/Prescriptions Prescriptions: No Action metformin 500 mg tablet 500 mg PO QHS Qty: 30 6RF aspirin [Adult Low Dose Aspirin] 81 mg tablet,delayed release (DR/EC) 81 mg PO QDAY docusate sodium [Colace] 100 mg capsule 200 mg PO QDAY PRN (Reason: constipation) Prenatabs FA 1 TABLET tablet 1 tab PO DAILY (DME) Blood Glucose Test Strip See Rx Instructions .MEDSUPPLY Qty: 120 5RF Rx Instructions: As directed-fasting & 2 hr post meals (DME) blood-glucose meter Misc See Rx Instructions .MEDSUPPLY Qty: 1 0RF Rx Instructions: As directed- Test fasting and 2 hours after meals (DME) lancets Misc See Rx Instructions .MEDSUPPLY Qty: 200 5RF Rx Instructions: As directed-fasting & 2 hr post meals Referrals / Follow Up: Nancy Sam NP-C [Primary Care Provider] - Disposition Disposition (needs filled in before D/C Order can be placed): Home, Self Care 07/13/244Stephanie Mtz MD CC: CAMPAIGN MARKETING MANAGER-C Nancy Sam ~ Signed [facility]04-24-[address] [facility] Medical Records Department [address] [place] [address] OB Vaginal Delivery 07/13/242124 MR#: [id number] Acct: [id number] Name: YUSRA FUENTES Rep #:[id number] : 1995 29 From: Stephanie burgos MD PCP: KULDIP Marroquin Status:ADM IN Location: [id number] Assessment & Plan (1) Encounter for induction of labor: (2) Gestational diabetes: COMMENT: metformin (3) Abnormal glucose level: COMMENT: 3 HR GTT-failed. 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 She had a suboptimal management for PE so I do not think she had PE. daily ASA, lovenox X 6 wk pp If c section (5) Obesity affecting : QUALIFIERS: Trimester: second trimester Obesity type affecting : unspecified obesity Qualified Code(s): O99.212 - Obesity complicating , second trimester COMMENT: HgB A1C ordered, growth US 32, 36 weeks, bpp weely 34 weeks on (6) Request for sterilization: COMMENT: After this (7) Former smoker: COMMENT: Stopped 2 years ago (8) Supervision of high-risk : QUALIFIERS: Trimester: second trimester Qualified Code(s): O09.92- Supervision of high risk , unspecified, second trimester COMMENT: PRR, , AUGUST 07/20/24, PC: Jillian, : Itz (9) : QUALIFIERS: Weeks of gestation: 38 weeks Qualified Code(s): Z3A.38 - 38 weeks gestation of COMMENT: GBS neg, Carrier neg. , NIPT low risk. Nl anatomy (10) H/O pre-eclampsia in prior , currently : COMMENT: with first , Pre-e baseline labs ordered-asa at 12 weeks (11) Vaginal delivery: COMMENT: SM IOL GDM girl Sarmiento Maternal Data Information AUGUST Calculator Estimated Delivery Date Method Current WG Current Estimate 07/20/24 LMP (Certain) 39w 0d Vaginal Delivery Maternal Presentation Maternal Presentation: see assessment and plan Vaginal Delivery Information Procedure Performed: Spontaneous Vaginal Delivery Surgeon/Practitioner: Stephanie Mtz Pre-Procedure Diagnosis: see assessment and plan Post-Procedure Diagnosis: same Type of anesthesia: Epidural Estimated Blood Loss: 200 Findings Description of procedure: Patient began pushing and delivered the head in the BIA presentation. The head was delivered atraumatically . The anterior and posterior shoulders delivered without complication followed by the rest of the and the was placed on the maternal abdomen. Delayed cord clamping was employed for approximately 60 seconds. Cord was clamped and cut and gentle traction was applied to the cord and the placenta delivered spontaneously immediately following it was noted to be intact with three-vessel cord. The perineum and vagina were inspected and noted to have no laceration. EBL was 200. Patient and infant tolerated delivery well. 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 Stephanie Mtz MD~ Signed [facility]04-24-2025 History and physical note Author Stephanie Mtz [facility] Note Date/Time July 13, 2024 12: 57pm [facility] Medical Records Department [address] [place] [address] H&P Exam - ROAD TESTER 07/13/24 0821 MR#: [id number] Acct: [id number] Name: YUSRA FUENTES Rep #:[id number] : 1995 29 From: Stephanie burgos MD PCP: KULDIP Marroquin Status:ADM IN Location: [id number] HPI - General General Date of Admission: 07/13/24 HPI Narrative YUSRA FUENTES, is a 29 F who presents for IOL secondary to GDM controlle don metformin, also has had unstable lie. no vb lof admits good fm Maternal Data Information AUGUST Calculator Estimated Delivery Date Method Current WG Current Estimate 07/20/24 LMP (Certain) 39w 0d PFSH PFSH Medical History (Updated 07/13/24 @ 08:[address] Stephanie Mtz MD) Gestational diabetes History of pulmonary embolism Depression Psoriasis Seasonal allergies 39 weeks gestation of Home Medications ?Medication ?Instructions ?Recorded ?Last Taken ?Type vits,calcium no.78-iron 1 tab PO DAILY pregna ncy 04/18/15 07/12/24 History fumarate-folic acid 29 mg-1 mg tablet (Prenatabs FA) aspirin 81 mg tablet,delayed 81 mg PO QDAY 1 03/26/23 07/12/24 History release (Adult Low Dose Aspirin) docusate sodium 100 mg capsule 200 mg PO QDAY PRN cons tipation 01/25/24 07/12/24 History (Colace) blood sugar diagnostic (Blood #120 ea 04/25/24 Unknown Rx Glucose Test strips) blood-glucose meter #1 ea 04/25/24 Unknown Rx lancets #200 ea 04/25/24 Unknown Rx metformin 500 mg tablet 500 mg PO QHS #30 tabs 06/12/24 07/12/24 Rx Allergy/AdvReac Type Severity Reaction Status Date / Time mushroom Allergy Swelling Verified 07/13/24 07:29 Family History Mother Heart disease Hypothyroidism Grandmother , great-grandma Breast cancer Social History adopted: No household members: spouse and children number of children: 2 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 current occupational exposures/hazards: No pets and animals: Yes (Not taking care litter box) pets and animals: cat(s) history of recent travel: Yes ([place] in Nov 2023) out of state: Yes out of country: No sexually active: Yes Smoking Status: Former smoker alcohol intake: never substance use type: does not use diet: other well-balanced diet: daily or most days caffeine: Yes eating out: 1-3 times/week during the past year weight has: other details: Lost 30lbs on Wegovy, has gain about 15lbs back what type of physical activity do you participate in: walking frequency: 3-4 times per week duration: < 15 minutes/day angela/cheondoism: None seatbelt use: always do you feel safe at home: Yes 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 Date Name GA/Weeks Outcome Route Bth Weight Gen Labor Lgth Anesthesia Del Locatn Provider FOB Unknown Chemical - 2018 04/06/15 [place] 38 live - full term 8lbs 14oz Male 36 [facility] 01/12/19 [place] 39 live - full term 9lbs 4oz Male 8 ep idural [facility] Delivery Date: 04/06/15 Last Updated by: Sujey Hong RN Gained 60lbs, Induced d/t early pre-e Delivery Date: 01/12/19 Last Updated by: Sujey Hong RN Induction d/t size Visit Details Expected Delivery Route/Plan Labor Preferences- CB/BF classes: [] labor support person: [] labor intervention preferences: [] pain management options preferred: [] cut cord/dad catch: [] : [] PP control planned: [] discussed possible routes of delivery and associated risks: [] special requests: [] Plans Covid status: [] Flu vaccine: [] Tdap vaccine: [] Rhogam: [] LARC form signed: [] Problem list reviewed and updated with the most current plan of care details and appropriate orders placed. Relevant counseling for the gestational age provided. Continue routine care and follow up unless otherwise noted in visit notes/problem list details OB Flowsheet Initial Weight: 245 lb Date -?-?-?-?-?-?-?-?-?-?-?-?- EGA Weight BP Urine Prot -?-?-?-?-?-?-?-?-?-?-?-?- Glucose FHR FuHt Pres Dilation -?-?-?-?-?--?-?-?-?-?-?-?- Effaced St Visit Note 12/30/23 -?-?-?-?-?-?-?-?-?-?-?-?- 11w 0d 245 lb 2 oz (+2 oz) 127/77 -?-?-?-?-?-?-?-?-?-?-?-?- 160 -?-?-?-?-?-?-?-?-?-?-?-?- KW- CRL cons wit h dates. accepts nipt. discussed hx PE with SM. plan to start lovenox 40 and hem consult KW- CRL cons with dates. acc epts nipt. discussed hx PE with SM. plan to start lovenox 40 and hem consult. plan asa at 12 weeks 01/24/24 -?-?-?-?-?-?-?-?-?-?-?-?- 14w 4d 243 lb (-2 lb) 122/82 Negative -?-?-?-?-?-?-?-?-?-?-?-?- Negative 160 -?-?-?-?-?-?-?-?-?-?-?-?- SM- no vb crmapi ng, respiratory symptoms has cold disuscsced now clinic eval if needed 02/28/24 -?-?-?-?-?-?-?-?-?-?-?-?- 19w 4d 253 lb 8 oz (+8 lb 8 oz) 139/84 Negative -?-?-?-?-?-?-?-?-?-?-?-?- Negative 152 -?-?-?-?-?-?-?-?-?-?-?-?- MH-NO VB. ?flutt ers. Nausea persists but vomiting improved. No anatomy US scheduled. Reordered. 03/20/24 -?-?-?-?-?-?-?-?-?-?-?-?- 22w 4d 260 lb 4 oz (+15 lb 4 oz) 122/70 Negative -?-?-?-?-?-?-?-?-?-?-?-?- Negative 145 -?-?-?-?-?-?-?-?-?-?-?-?- JV- anatomy scan reviewed and is normal. no complaints today other than gas. recommend gas-x. 04/17/24 -?-?-?-?-?-?-?-?-?-?-?-?- 26w 4d 264 lb 8 oz (+19 lb 8 oz) 126/79 Trace -?-?-?-?-?-?-?-?-?-?-?-?- Negative 140 28 -?-?-?-?-?-?-?-?-?-?-?-?- SM- no vb lof go od fm no regular ctx co pubic symphyses pain 05/15/24 -?-?-?-?-?-?-?-?-?-?-?-?- 30w 4d Negative -?-?--?-?-?-?-?-?-?-?-?-?- Negative 135 32 -?-?-?-?-?-?-?-?-?-?-?-?- KW- no vb/lof/ct x. good fm. Will get breast pump on WP when goes into labor. BS reviewed and WNL. Tdap and LARC today. 32 and 36 week US scheduled-desires BTO 6 weeks PP 05/29/24 -?-?-?-?-?-?-?-?-?-?-?-?- 32w 4d 267 lb (+22 lb) 138/85 Negative -?-?-?-?-?-?-?-?-?-?-?-?- Negative 145 34 -?-?-?-?-?-?-?-?-?-?-?-?- KW- no vb/lof/ct x. good fm. will send in BS numbers for review. KW- no vb/lof/ctx. good fm. will send in BS numbers for review.US reviewed and Tdap today 06/12/24 -?-?-?-?-?-?-?-?-?-?-?-?- 34w 4d 271 lb 6 oz (+26 lb 6 oz) 123/68 -?-?-?-?-?-?-?-?-?-?-?-?- 165 35 -?-?-?-?-?-?-?-?-?-?-?-?- JV- had 4 elevat ed fastings this week. starting metformin and adding on NSTs weekly 06/23/24 -?-?-?-?-?-?-?-?-?-?-?-?- 36w 1d 273 lb (+28 lb) 134/79 Negative -?-?-?-?-?-?-?-?-?-?-?-?- Negative 130 -?-?-?-?-?--?-?-?-?-?-?-?- KW- no vb/lof/ct x. good fm. Breech on last BPP and if still breech on tu (BPP/Growth) would like 37 week ECV. NST reactive. GBS today. BS doing ok. 05/28 elevated. will reassess next week. forgot to take metformin twice during the last 2 weeks. 06/30/24 -?-?-?-?-?-?-?-?-?-?-?-?- 37w 1d 274 lb 8 oz (+29 lb 8 oz) 132/83 -?-?-?-?-?-?-?-?-?-?-?-?- 140 Cephalic 1 -?-?-?-?-?-?-?-?-?-?-?-?- 50 -4 JV- cephal ic today. nst reactive. increasing metformin to 1000 hs. Plan 39 week IOL 07/07/24 -?-?-?-?-?-?-?-?-?-?-?-?- 38w 1d 276 lb 6 oz (+31 lb 6 oz) 128/79 Negative -?-?-?-?-?-?-?-?-?-?-?-?- Negative 130 -?-?-?-?-?-?-?-?-?-?-?-?- - BS controlle d. plan IOL 39 weeks NST FHR Rate Baby A Baseline: 130 Variability:: Moderate Accelerations:: 15 x 15 Decelerations:: None NST Reactive:: Yes FHR Category:: Category I Uterine Activity:: irregular ROS Constitutional Constitutional: Reports systems reviewed and no addt'l complaints, except as documented Eyes Eyes: Denies change in vision ENT HEENT: Reports systems reviewed and no addt'l complaints, except as documented; Denies headache(s) Cardiovascular Cardiovascular: Reports systems reviewed and no addt'l complaints, except as documented; Denies chest pain or dyspnea Respiratory/Chest Respiratory/Chest: Reports systems reviewed and no addt'l complaints, except as documented Gastrointestinal Gastrointestinal: Reports systems reviewed and no addt'l complaints, except as documented; Denies abdominal pain Genitourinary Genitourinary: Reports systems reviewed and no addt'l complaints, except as documented, contractions Details: present (irregular) and movement Details: present; Denies dysuria or genital lesions Musculoskeletal Musculoskeletal: Reports systems reviewed and no addt'l complaints, except as documented Neurologic Neurologic: Reports systems reviewed and no addt'l complaints, except as documented Endocrine Endocrinology: Reports systems reviewed and no addt'l complaints, except as documented Vital Signs Vital Signs Vital Signs: 07/13/24 07:25 07/13/24 07:25 07/13/24 07:25 Temperature Temperature Source Temporal Pulse Rate 97 Respiratory Rate Blood Pressure 130/79 H BP Systolic 130 BP Diastolic 79 07/13/24 07:25 07/13/24 07:25 Temperature 97.0 F L Temperature Source Pulse Rate Respiratory Rate 16 Blood Pressure BP Systolic BP Diastolic Weight Weight: 278 lb Body Mass Index (BMI) 47.7 Physical Exam Const alert, oriented x3, no apparent distress and healthy appearing HEENT normocephalic and moist oral mucous membranes Head and Scalp: atraumatic Neck full ROM, no lymphadenopathy, supple and thyroid normal General: trachea midline Lymph Lymphatic: no lymphadenopathy noted Chest inspection of chest normal Resp normal respiratory effort Cardio regular rate GI soft to palpation and non-tender GI Narrative: gravid Inspection: gravid external exam normal Manual OB Exam: estimated gestational size appropriate, presentation cephalic, dilated, effaced and station Extremity normal to inspection General Extremity: Negative for edema Skin no rashes or lesions noted Neuro no focal motor deficits and deep tendon reflexes 2+ bilaterally Motor Exam: strength 5/5 throughout and clonus absent Psych mental status grossly normal Labs Labs Labs: Blood Type AB POSITIVE Antibody Screen NEGATIVE Hct 43.0 % (37-47) Hgb 14.3 g/dL (12.0-15.0) Obstetrics Ultrasound Syphilis Total Ab Nonreactive (Nonreactive) VZV IgG Antibody 231 index (Immune >165) Rubella IgG Antibody Reactive (Nonreactive) Hep Bs Antigen Non-Reactive (Nonreactive) Hepatitis C Antibody Non-Reactive (Nonreactive) Hepatitis C Ab (EIA) <0.1 s/co ratio (0.0-0.9) Chlamydia DNA (EARL) Negative (Negative) N.gonorrhoeae DNA (EARL) Negative (Negative) HIV 1&2 Antibody Non-Reactive (Nonreactive) Glucose 1 Hr 50 gm 151 mg/dL (70-140) H Gest Glucose Tolerance MG/DL Group B Strep DNA Negative (Negative) Rhogam given: No Miscellaneous Test Assessment & Plan (1) Gestational diabetes: COMMENT: metformin (2) Abnormal glucose level: COMMENT: 3 HR GTT-failed. (3) 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, antepartum: COMMENT: Pt has not had any clotting event that requires anticoagulation during this . She had a suboptimal management for PE so I do not think she had PE. daily ASA, lovenox X 6 wk pp If c section (4) Obesity affecting : QUALIFIERS: Obesity type affecting : unspecified obesity Trimester: second trimester Qualified Code(s): O99.212 - Obesity complicating , second trimester COMMENT: HgB A1C ordered, growth US 32, 36 weeks, bpp weely 34 weeks on (5) Request for sterilization: COMMENT: After this (6) Former smoker: COMMENT: Stopped 2 years ago (7) Supervision of high-risk : QUALIFIERS: Trimester: second trimester Qualified Code(s): O09.92 - Supervision of high risk , unspecified, second trimester COMMENT: PRR, , AUGUST 07/20/24, PC: Jillian, : Itz (8) : QUALIFIERS: Weeks of gestation: 38 weeks Qualified Code(s): Z3A.38 - 38 weeks gestation of COMMENT: GBS neg, Carrier neg. , NIPT low risk. Nl anatomy (9) H/O pre-eclampsia in prior , currently : COMMENT: with first , Pre-e baseline labs ordered-asa at 12 weeks (10) Ovarian cyst: QUALIFIERS: Laterality: unspecified laterality Qualified Code(s): N83.209 - Unspecified ovarian cyst, unspecified side COMMENT: on L ovary + Fibroids (11) Anxiety and depression: (12) High cholesterol: COMMENT: Stopped Statin in October - controlling with diet & exercise (13) Seasonal allergies: (14) Encounter for induction of labor: PLAN: Plan Patient presents IOL, plan management for with pit fb. Pain management: plans epidural. GBS negative. Management of any complications: monitor BS I have reviewed the [facility] and made any clinically relevant updates. 07/13/24 1257 <Electronically signed by Stephanie Mtz MD> Cosigner Signature (if applicable): CC: CAMPAIGN MARKETING MANAGER-C Nancy Sam; Dr. Stephanie Mtz MD~ Signed [facility] Work Phone: [phone] [phone] History and physical note [facility] Medical Records Department [address] [place] [address] H&P Exam - ROAD TESTER 07/13/24 0821 MR#: [id number] Acct: [id number] Name: YUSRA FUENTES Rep #:[id number] : 1995 29 From: Stephanie burgos MD PCP: KULDIP Marroquin Status:ADM IN Location: [id number] HPI - General General Date of Admission: 07/13/24 HPI Narrative YUSRA FUENTES, is a 29 F who presents for IOL secondary to GDM controlle don metformin, also has had unstable lie. no vb lof admits good fm Maternal Data Information AUGUST Calculator Estimated Delivery Date Method Current WG Current Estimate 07/20/24 LMP (Certain) 39w 0d [facility] Medical History (Updated 07/13/24 @ 08:[address] Stephanie Mtz MD) Gestational diabetes History of pulmonary embolism Depression Psoriasis Seasonal allergies 39 weeks gestation of Home Medications ?Medication ?Instructions ?Recorded ?Last Taken ?Type vits,calcium no.78-iron 1 tab PO DAILY pregna ncy 04/18/15 07/12/24 History fumarate-folic acid 29 mg-1 mg tablet (Prenatabs FA) aspirin 81 mg tablet,delayed 81 mg PO QDAY 1 03/26/23 07/12/24 History release (Adult Low Dose Aspirin) docusate sodium 100 mg capsule 200 mg PO QDAY PRN cons tipation 01/25/24 07/12/24 History (Colace) blood sugar diagnostic (Blood #120 ea 04/25/24 Unknown Rx Glucose Test strips) blood-glucose meter #1 ea 04/25/24 Unknown Rx lancets #200 ea 04/25/24 Unknown Rx metformin 500 mg tablet 500 mg PO QHS #30 tabs 06/12/24 07/12/24 Rx Allergy/AdvReac Type Severity Reaction Status Date / Time mushroom Allergy Swelling Verified 07/13/24 07:29 Family History Mother Heart disease Hypothyroidism Grandmother , great-grandma Breast cancer Social History adopted: No household members: spouse and children number of children: 2 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 current occupational exposures/hazards: No pets and animals: Yes (Not taking care litter box) pets and animals: cat(s) history of recent travel: Yes ([place] in Nov 2023) out of state: Yes out of country: No sexually active: Yes Smoking Status: Former smoker alcohol intake: never substance use type: does not use diet: other well-balanced diet: daily or most days caffeine: Yes eating out: 1-3 times/week during the past year weight has: other details: Lost 30lbs on Wegovy, has gain about 15lbs back what type of physical activity do you participate in: walking frequency: 3-4 times per week duration: < 15 minutes/day angela/cheondoism: None seatbelt use: always do you feel safe at home: Yes 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 Date Name GA/Weeks Outcome Route Bth Weight Infant Gen Labor Lgth Anesthesia Del Locatn Provider FOB Unknown Chemical - 2018 04/06/15 [place] 38 live - full term 8lbs 14oz Male 36 epidural [facility] 01/12/19 [place] 39 live - full term 9lbs 4oz Male 8 ep idural [facility] Delivery Date: 04/06/15 Last Updated by: Sujey Hong RN Gained 60lbs, Induced d/t early pre-e Delivery Date: 01/12/19 Last Updated by: Sujey Hong RN Induction d/t size Visit Details Expected Delivery Route/Plan Labor Preferences- CB/BF classes: [] labor support person: [] labor intervention preferences: [] pain management options preferred: [] cut cord/dad catch: [] : [] PP control planned: [] discussed possible routes of delivery and associated risks: [] special requests: [] Plans Covid status: [] Flu vaccine: [] Tdap vaccine: [] Rhogam: [] LARC form signed: [] Problem list reviewed and updated with the most current plan of care details and appropriate ordersplaced. Relevant counseling for the gestational age provided. Continue routine care and follow up unless otherwise noted in visit notes/problem list details OB Flowsheet Initial Weight: 245 lb Date -?-?-?-?-?-?-?-?-?-?-?-?- EGA Weight BP Urine Prot -?-?-?-?-?-?-?-?-?-?-?-?- Glucose FHR FuHt Pres Dilation -?-?-?-?-?--?-?-?-?-?-?-?- Effaced St Visit Note 12/30/23 -?-?-?-?-?-?-?-?-?-?-?-?- 11w 0d 245 lb 2 oz (+2 oz) 127/77 -?-?-?-?-?-?-?-?-?-?-?-?- 160 -?-?-?-?-?-?-?-?-?-?-?-?- KW- CRL cons wit h dates. accepts nipt. discussed hx PE with SM. plan to start lovenox 40 and hem consult KW- CRL cons with dates. acc epts nipt. discussed hx PE with SM. plan to start lovenox 40 and hem consult. plan asa at 12 weeks 01/24/24 -?-?-?-?-?-?-?-?-?-?-?-?- 14w 4d 243 lb (-2 lb) 122/82 Negative -?-?-?-?-?-?-?-?-?-?-?-?- Negative 160 -?-?-?-?-?-?-?-?-?-?-?-?- SM- no vb crmapi ng, respiratory symptoms has cold disuscsced now clinic eval if needed 02/28/24 -?-?-?-?-?-?-?-?-?-?-?-?- 19w 4d 253 lb 8 oz (+8 lb 8 oz) 139/84 Negative -?-?-?-?-?-?-?-?-?-?-?-?- Negative 152 -?-?-?-?-?-?-?-?-?-?-?-?- MH-NO VB. ?flutt ers. Nausea persists but vomiting improved. No anatomy US scheduled. Reordered. 03/20/24 -?-?-?-?-?-?-?-?-?-?-?-?- 22w 4d 260 lb 4 oz (+15 lb 4 oz) 122/70 Negative -?-?-?-?-?-?-?-?-?-?-?-?- Negative 145 -?-?-?-?-?-?-?-?-?-?-?-?- JV- anatomy scan reviewed and is normal. no complaints today other than gas. recommend gas-x. 04/17/24 -?-?-?-?-?-?-?-?-?-?-?-?- 26w 4d 264 lb 8 oz (+19 lb 8 oz) 126/79 Trace -?-?-?-?-?-?-?-?-?-?-?-?- Negative 140 28 -?-?-?-?-?-?-?-?-?-?-?-?- SM- no vb lof go od fm no regular ctx co pubic symphyses pain 05/15/24 -?-?-?-?-?-?-?-?-?-?-?-?- 30w 4d Negative -?-?--?-?-?-?-?-?-?-?-?-?- Negative 135 32 -?-?-?-?-?-?-?-?-?-?-?-?- KW- no vb/lof/ct x. good fm. Will get breast pump on WP when goes into labor. BS reviewed and WNL. Tdap and LARC today. 32 and 36 week US scheduled-desires BTO 6 weeks PP 05/29/24 -?-?-?-?-?-?-?-?-?-?-?-?- 32w 4d 267 lb (+22 lb) 138/85 Negative -?-?-?-?-?-?-?-?-?-?-?-?- Negative 145 34 -?-?-?-?-?-?-?-?-?-?-?-?- KW- no vb/lof/ct x. good fm. will send in BS numbers for review. KW- no vb/lof/ctx. good fm. will send in BS numbers for review.US reviewed and Tdap today 06/12/24 -?-?-?-?-?-?-?-?-?-?-?-?- 34w 4d 271 lb 6 oz (+26 lb 6 oz) 123/68 -?-?-?-?-?-?-?-?-?-?-?-?- 165 35 -?-?-?-?-?-?-?-?-?-?-?-?- JV- had 4 elevat ed fastings this week. starting metformin and adding on NSTs weekly 06/23/24 -?-?-?-?-?-?-?-?-?-?-?-?- 36w 1d 273 lb (+28 lb) 134/79 Negative -?-?-?-?-?-?-?-?-?-?-?-?- Negative 130 -?-?-?-?-?--?-?-?-?-?-?-?- KW- no vb/lof/ct x. good fm. Breech on last BPP and if still breech on (BPP/Growth) would like 37 week ECV. NST reactive. GBS today. BS doing ok. 05/28 elevated. will reassess next week. forgot to take metformin twice during the last 2 weeks. 06/30/24 -?-?-?-?-?-?-?-?-?-?-?-?- 37w 1d 274 lb 8 oz (+29 lb 8 oz) 132/83 -?-?-?-?-?-?-?-?-?-?-?-?- 140 Cephalic 1 -?-?-?-?-?-?-?-?-?-?-?-?- 50 -4 JV- cephal ic today. nst reactive. increasing metformin to 1000 hs. Plan 39 week IOL 07/07/24 -?-?-?-?-?-?-?-?-?-?-?-?- 38w 1d 276 lb 6 oz (+31 lb 6 oz) 128/79 Negative -?-?-?-?-?-?-?-?-?-?-?-?- Negative 130 -?-?-?-?-?-?-?-?-?-?-?-?- SM- BS controlle d. plan IOL 39 weeks NST FHR Rate Baby A Baseline: 130 Variability:: Moderate Accelerations:: 15 x 15 Decelerations:: None NST Reactive:: Yes FHR Category:: Category I Uterine Activity:: irregular ROS Constitutional Constitutional: Reports systems reviewed and no addt'l complaints, except as documented Eyes Eyes: Denies change in vision ENT HEENT: Reports systems reviewed and no addt'l complaints, except as documented; Denies headache(s) Cardiovascular Cardiovascular: Reports systems reviewed and no addt'l complaints, except as documented; Denies chest pain or dyspnea Respiratory/Chest Respiratory/Chest: Reports systems reviewed and no addt'l complaints, except as documented Gastrointestinal Gastrointestinal: Reports systems reviewed and no addt'l complaints, except as documented; Denies abdominal pain Genitourinary Genitourinary: Reports systems reviewed and no addt'l complaints, except as documented, contractions Details: present (irregular) and movement Details: present; Denies dysuria or genital lesions Musculoskeletal Musculoskeletal: Reports systems reviewed and no addt'l complaints, except as documented Neurologic Neurologic: Reports systems reviewed and no addt'l complaints, except as documented Endocrine Endocrinology: Reports systems reviewed and no addt'l complaints, except as documented Vital Signs Vital Signs Vital Signs: 07/13/24 07:25 07/13/24 07:25 07/13/24 07:25 Temperature Temperature Source Temporal Pulse Rate 97 Respiratory Rate Blood Pressure 130/79 H BP Systolic 130 BP Diastolic 79 07/13/24 07:07/13/24 07:25 Temperature 97.0 F L Temperature Source Pulse Rate Respiratory Rate 16 Blood Pressure BP Systolic BP Diastolic Weight Weight: 278 lb Body Mass Index (BMI) 47.7 Physical Exam Const alert, oriented x3, no apparent distress and healthy appearing HEENT normocephalic and moist oral mucous membranes Head and Scalp: atraumatic Neck full ROM, no lymphadenopathy, supple and thyroid normal General: trachea midline Lymph Lymphatic: no lymphadenopathy noted Chest inspection of chest normal Resp normal respiratory effort Cardio regular rate GI soft to palpation and non-tender GI Narrative: gravid Inspection: gravid external exam normal Manual OB Exam: estimated gestational size appropriate, presentation cephalic, dilated, effaced and station Extremity normal to inspection General Extremity: Negative for edema Skin no rashes or lesions noted Neuro no focal motor deficits and deep tendon reflexes 2+ bilaterally Motor Exam: strength 5/5 throughout and clonus absent Psych mental status grossly normal Labs Labs Labs: Blood Type AB POSITIVE Antibody Screen NEGATIVE Hct 43.0 % (37-47) Hgb 14.3 g/dL (12.0-15.0) Obstetrics Ultrasound Syphilis Total Ab Nonreactive (Nonreactive) VZV IgG Antibody 231 index (Immune >165) Rubella IgG Antibody Reactive (Nonreactive) Hep Bs Antigen Non-Reactive (Nonreactive) Hepatitis C Antibody Non-Reactive (Nonreactive) Hepatitis C Ab (EIA) <0.1 s/co ratio (0.0-0.9) Chlamydia DNA (EARL) Negative (Negative) N.gonorrhoeae DNA (EARL) Negative (Negative) HIV 1&2 Antibody Non-Reactive (Nonreactive) Glucose 1 Hr 50 gm 151 mg/dL (70-140) H Gest Glucose Tolerance MG/DL Group B Strep DNA Negative (Negative) Rhogam given: No Miscellaneous Test Assessment & Plan (1) Gestational diabetes: COMMENT: metformin (2) Abnormal glucose level: COMMENT: 3 HR GTT-failed. (3) 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, antepartum: COMMENT: Pt has not had any clotting event that requires anticoagulation during this . She had a suboptimal management for PE so I do not think she had PE. daily ASA, lovenox X 6 wk pp If c section (4) Obesity affecting : QUALIFIERS: Obesity type affecting : unspecified obesity Trimester: second trimester Qualified Code(s): O99.212 - Obesity complicating , second trimester COMMENT: HgB A1C ordered, growth US 32, 36 weeks, bpp weely 34 weeks on (5) Request for sterilization: COMMENT: After this (6) Former smoker: COMMENT: Stopped 2 years ago (7) Supervision of high-risk : QUALIFIERS: Trimester: second trimester Qualified Code(s): O09.92 - Supervision of high risk , unspecified, second trimester COMMENT: PRR, , AUGUST 07/20/24, PC: Jillian, : Itz (8) : QUALIFIERS: Weeks of gestation: 38 weeks Qualified Code(s): Z3A.38 - 38 weeks gestation of COMMENT: GBS neg, Carrier neg. , NIPT low risk. Nl anatomy (9) H/O pre-eclampsia in prior , currently : COMMENT: with first , Pre-e baseline labs ordered-asa at 12 weeks (10) Ovarian cyst: QUALIFIERS: Laterality: unspecified laterality Qualified Code(s): N83.209 - Unspecified ovarian cyst, unspecified side COMMENT: on L ovary + Fibroids (11) Anxiety and depression: (12) High cholesterol: COMMENT: Stopped Statin in October - controlling with diet & exercise (13) Seasonal allergies: (14) Encounter for induction of labor: PLAN: Plan Patient presents IOL, plan management for with pit fb. Pain management: plans epidural. GBS negative. Management of any complications: monitor BS I have reviewed the [facility] and made any clinically relevant updates. 04/24/25 [facility] Cosigner Signature (if applicable): CC: KULDIP Sam; Dr. Stephanie Mtz MD~ Signed [facility]04-15-2025 Radiology Diagnostic study note [facility] Imaging Services [address] [place], [place] [address] Biophysical Prof W/O Non Stres MR#: [id number] Acct: [id number] Name: YUSRA FUENTES Rep #: [id number] : 1995 F 29 From: Josh Moon MD PCP: KULDIP Marroquin Status: REG CL I Study:Biophysical Prof W/O Non Stres Date of Exam: 07/03/24 Exam# [id number] Ordering Dr: Stephanie Mahajan MD PROCEDURE: BIOPHYSICAL PROF W/O NON STRES 07/03/2024 REASON FOR EXAM: WELL BEING TECHNIQUE: High resolution obstetric ultrasound performed using a 2D transducer. Standard views obtained, including biometry, anatomy survey, and Doppler studies. COMPARISON: 06/27/2024. FINDINGS Single, live intrauterine gestation. Cephalic presentation. heart rate 139 beats per minute. Estimated age by LMP 37 weeks and 4 days with an estimated delivery date on 07/20/2024. Estimated age by previous ultrasound 38 weeks and 2 days with an estimateddelivery date on 07/15/2024. Amniotic fluid index 17.7 cm. Largest amniotic fluid pocket 5.9 x 9.8 cm. Anterior placenta which is not low lying. Placenta grade 2. Biophysical profile : Breathing movements 2/2. Gross body movements 2/2. tone 2/2. Amniotic fluid volume 2/2. Biophysical profile score 8/8. US/Biophysical Prof W/O Non Stres IMPRESSION: Single, live intrauterine gestation. Biophysical profile score 8/8, normal values. Reading Location: [place] [address] CC: KULDIP Sam; Dr. Stephanie Mtz MD ~ Med Admin: Signed [facility]04-09-2025 Radiology Diagnostic study note [facility] Imaging Services [address] [place] [address] Biophysical Prof W/O Non Stres MR#: [id number] Acct: [id number] Name: YUSRA FUENTES Rep #: [id number] : 1995 F 29 From: Chasity Agustin MD PCP: Nancy Sam NP-Corrine Status: REG CL I Study:Biophysical Prof W/O Non Stres Date of Exam: 06/27/24 Exam# [id number] Ordering Dr: Stephanie Mahajan MD PROCEDURE: BIOPHYSICAL PROF W/O NON STRES (USBIOWO), 06/27/2024 REASON FOR EXAM: WELL BEING. Reportedly 36 weeks 5 days with AUGUST 07/20/2024 by previously established dates TECHNIQUE: Grayscale and color/spectral doppler transabdominal pelvic ultrasound was performed with attention to the uterus and associated gestation. COMPARISON: 06/19/2024 FINDINGS: A single fetus is identified. Cardiac activity: Present, 147 bpm. position: Transverse. Amniotic Fluid Index: 19.9 (normal 5-25), deepest vertical pocket 6.7 (normal 2-8). Placenta: Anterior. A limited obstetrical ultrasound was performed to determine biophysical profile score: Breathing movement: 2 Gross Body movement: 2 Tone: 2 Qualitative Amniotic Fluid: 2 biometry: Biparietal diameter: 9.4 cm, corresponding to 38 weeks 1 day. Head circumference: 33.6 cm, corresponding to 38 weeks 4 days. Occipitofrontal diameter: 11.6 cm, corresponding gestational age not available. Abdominal circumference: 33.9 cm, corresponding to 37 weeks 6 days. Femur length: 6.8 cm, corresponding to 34 weeks 5 days. Composite gestational age: 37 weeks 3 days by today's measurements. Estimated Weight (EFW): 3,143 g +/- 471 g, 67th percentile based on previously established dates. Estimated delivery date (AUGUST): 07/14/2024 by today's measurements. Other: No significant visualized pelvic free fluid. Note borderline low normal femur length to abdominal circumference ratio of 19.92 (lower limit of normal is 20.0). US/Biophysical Prof W/O Non Stres IMPRESSION: 1. Single fetus in transverse positioning at 37 weeks 3 days with AUGUST 5by today's measurements. Correlate with clinical factors including previously established dates. 2. Estimated weight 3,143 g +/- 471 g, 67th percentile based on provided previously established dates. biometry as above. 3. Note borderline low normal femur length to abdominal circumference ratio of 19.92 (lower limit of normal is 20.0). 4. Additional description as above. Reading Location: [id number] CC: KULDIP Sam; Dr. Stephanie Mtz MD ~ Med Admin: Signed [facility]03-31-2025 Progress note [facility] Medical Records Department [address] [place] [address] OB Triage Progress Note 06/19/24 1437 MR#: [id number] Acct: [id number] Name: YUSRA FUENTES Rep #:[id number] : 1995 29 From: Lara Cespedes CNM PCP: KULDIP Marroquin Status:REG CL I Y DOS: Location: [place] [address] Progress Notes Date of Service: 06/19/24 Progress Note: Patient presents for triage evaluation secondary to NST after BPP 6/8 FHT: 135 Moderate variability reactive no decelerations category I tracing [place]: mild-moderate Contractions Assessment and plan: cervical exam done and 1/thick/posterior per nursing, encourage oral hydration, Reactive NST, reassuring maternal and status patient discharged to home to follow-up in office or return to if contractions worsen. See problem list details for additional plan information. Charges/Coding Multi Select Codes Urinary/Genital Urinary/Genital CPT Codes: 77949-15 non-stress test Interp Assessment & Plan (1) Gestational diabetes: COMMENT: nutrition consult, glucose testing fasting & 2 hr PP (2) Abnormal glucose level: COMMENT: 3 HR GTT-failed. (3) 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, antepartum: COMMENT: Pt has not had any clotting event that requires anticoagulation during this . She had a suboptimal management for PE so I do not think she had PE. daily ASA, lovenox X 6 wk pp If c section (4) Obesity affecting : QUALIFIERS: Trimester: second trimester Obesity type affecting : unspecified obesity Qualified Code(s): O99.212 - Obesity complicating , second trimester COMMENT: HgB A1C ordered, growth US 32, 36 weeks, bpp weely 34 weeks on (5) Request for sterilization: COMMENT: After this (6) Former smoker: COMMENT: Stopped 2 years ago (7) Supervision of high-risk : QUALIFIERS: Trimester: second trimester Qualified Code(s): O09.92- Supervision of high risk , unspecified, second trimester COMMENT: PRR, , AUGUST 07/20/24, PC: Jillian, : Itz (8) : QUALIFIERS: Weeks of gestation: 34 weeks Qualified Code(s): Z3A.34 - 34 weeks gestation of COMMENT: Carrier neg. , NIPT low risk. Nl anatomy (9) H/O pre-eclampsia in prior , currently : COMMENT: with first , Pre-e baseline labs ordered-asa at 12 weeks (10) Ovarian cyst: QUALIFIERS: Laterality: unspecified laterality Qualified Code(s):N83.209 - Unspecified ovarian cyst, unspecified side COMMENT: on L ovary + Fibroids (11) Anxiety and depression: (12) Seasonal allergies: (13) High cholesterol: COMMENT: Stopped Statin in October - controlling with diet & exercise (14) NST (non-stress test) reactive: COMMENT: had BPP 08/27. now 10/29 d/c home 06/19/24 1441 s CNM> Date _ Lara Cespedes CNM Cosigner Signature (if applicable): Date CC: ARTEM Cespedes; CAMPAIGN MARKETING MANAGER-C Nancy Sam ~ Signed [facility]03-31-2025 Radiology Diagnostic study note [facility] Imaging Services [address] [place] [address] Biophysical Prof W/O Non Stres MR#: [id number] Acct: [id number] Name: YUSRA FUENTES Rep #: [id number] : 1995 F 29 From: Humberto Sherman MD PCP: Nancy Sam NP-C Status: REG CL I Study:Biophysical Prof W/O Non Stres Date of Exam: 06/19/24 Exam# [id number] Ordering Dr: Stephanie Mahajan MD PROCEDURE: BIOPHYSICAL PROF W/O NON STRES 06/19/2024 REASON FOR EXAM: WELL BEING TECHNIQUE: Biophysical profile was obtained. COMPARISON: Comparison is made with prior study dated April 25, 2024. FINDINGS: position: Breech heart rate: 149 beats per minute: Amniotic fluid: Within normal limits. Largest fluid pocket: 5.8 cm x 6.2 cm Amniotic fluid index: 16.7 cm. Placenta location: Anterior and not low-lying. Placenta grade: 2 Biophysical profile: Breathing movements 0 Gross body movements: 2 tone: 2 amniotic fluid volume: 2 Total score: 6/8. US/Biophysical Prof W/O Non Stres IMPRESSION: Biophysical profile score: 6/8. Reading Location: [place] [address] CC: CAMPAIGN MARKETING MANAGER-C Nancy Sam; Dr. Stephanie Mtz MD ~ Med Admin: Signed [facility]03-26-2025 Radiology Diagnostic study note [facility] Imaging Services [address] [place] [address] Biophysical Prof W/O Non Stres MR#: [id number] Acct: [id number] Name: YUSRA FUENTES Rep #: [id number] : 1995 F 29 From: Renaldo Gallo MD PCP: BE MarroquinC Status: REG CL I Study:Biophysical Prof W/O Non Stres Date of Exam: 06/12/24 Exam# [id number] Ordering Dr: Stephanie Mahajan MD EXAM: Biophysical Prof w/o nonstress CLINICAL HISTORY: well-being TECHNIQUE: Biophysical Prof w/o nonstress ultrasound FINDINGS: Single live intrauterine . age by LMP 34 weeks 4 days, AUGUST 07/20/2024. heart rate 132 beats per minute. Presentation cephalic. CHA 20 cm, largest pocket 7.4 cm. Anterior placenta is not low lying. Grade 2. Breathing movements: 2 out of 2 Gross body movements: 2/2 tone: 2/2 Amniotic fluid volume: 2/2 US/Biophysical Prof W/O Non Stres IMPRESSION: Single live intrauterine as above. Biophysical profile 8 out of a total of 8. Reading Location: [id number] CC: KULDIP Sam; Dr. Stephanie Mtz MD ~ Med Admin: Signed [facility]03-04-2025 Radiology Diagnostic study note [facility] Imaging Services [address] [place] [address] [id number] OB Limited With Biometrics MR#: [id number] Acct: [id number] Name: YUSRA FUENTES Rep #: [id number] : 1995 F 29 From: Humberto Sherman MD PCP: KULDIP Marroquin Status: REG CL I Study:OB Limited With Biometrics Date of Exam : 05/23/24 Exam# [id number] Ordering Dr: Stephanie Mahajan MD PROCEDURE: OB LIMITED WITH BIOMETRICS REASON FOR EXAM: growth. COMPARISON: Comparison is made with prior study dated March 10, 2024 FINDINGS Number: 1 Position: Vertex Placental Position: Anterior and not low-lying. Placental Abnormalities: None. DIMENSIONS: Biparietal Diameter: 8.5 cm: 34 weeks and 0 days: 94 percentile/ Head Circumference: 30.7 cm: 34 weeks and 1 day: 80 percentile/ Abdominal Circumference: 29.8 cm: 33 weeks and 5 days: 94 percentile/ Femur Length: 6.11 cm: 31 weeks and 5 days: 35th percentile/ ESTIMATED WEIGHT: 2162 g plus/-324 g ESTIMATED WEIGHT PERCENTILE (24+ weeks): 86 ESTIMATED GESTATIONAL AGE: Baseline: 31 weeks and 5 days By Ultrasound: 31 weeks and 4 days ESTIMATED DATE OF DELIVERY: Baseline: July 20, 2024 By Ultrasound: July 21, 2024 BIOPHYSICAL ASSESSMENT: Amniotic Fluid Volume: Subjectively normal. Amniotic Fluid Index: 16.6 (8-24 cm normal range) Cardiac Motion: 137 beats per minute (average) Trunk and Limb Motion: Present. MATERNAL ANATOMY: Adnexa: Neither maternal ovary is successfully identified. US/OB Limited With Biometrics IMPRESSION: Single live intrauterine gestation with a mean gestational age of 31 weeks and 4days. Reading Location: [id number] CC: KULDIP Sam; Dr. Stephanie Mtz MD ~ Med Admin: Signed [facility]12-30-2024 Evaluation note* Diagnosis Onset Date Resolution Status Admit Date Anxiety and depression acute 2023 8:48am Former smoker acute March 202023 8:48am H/O pre-eclampsia in prior , currently acute 2023 8:48am 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, antepartum acute February 212023 8:48am High cholesterol acute March 20, 2024 8:48am Obesity affecting acute March 20, 2024 8:48am Ovarian cyst acute February 8:48am acute March 20, 2024 8:48am Request for sterilization acute March 20, 2024 8:48am Seasonal allergies acute [facility] 2023 8:48am Supervision of high-risk acute March 20, 2 024 8:48am Hypothyroidism resolved February 212023 8:48am Anxiety and depression acute 2024 8:23am Former smoker acute March 8:23am H/O pre-eclampsia in prior , currently acute [facility] 2024 8:23am 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, antepartum acute April 172024 8:23am High cholesterol acute April 17, 2024 8:23am Obesity affecting acute April 17, 2024 8:23am Ovarian cyst acute March 8:23am acute April 17, 2024 8:23am Request for sterilization acute April 17, 2024 8:23am Seasonal allergies acute 2024 8:23am Supervision of high-risk acute April 17 8:23am Abnormal glucose level acute Fe bruary 2024 12:50pm Anxiety and depression acute Fe bruary 2024 12:50pm Former smoker acute May 152024 12:50pm Gestational diabetes acute ua2024 12:50pm H/O pre-eclampsia in prior , currently acute Fe bruary 2024 12:50pm 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, antepartum acute April 232024 12:50pm High cholesterol acute May 15, 2024 12:50pm Obesity affecting acute May 15, 2024 12:50pm Ovarian cyst acute April 12:50pm acute May 15, 2024 12:50pm Request for sterilization acute May 15, 2024 12:50pm Seasonal allergies acute Februa 2024 12:50pm Supervision of high-risk acute May 15 12:50pm Abnormal glucose level acute [facility] 2024 3:03pm Anxiety and depression acute [facility] 2024 3:03pm Former smoker acute May 29, 2024 3:03pm Gestational diabetes acute 2024 3:03pm H/O pre-eclampsia in prior , currently acute [facility] 2024 3:03pm 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, antepartum acute May 3:03pm High cholesterol acute May 292024 3:03pm Obesity affecting acute May 29, 2024 3:03pm Ovarian cyst acute May 29, 2024 3:03pm acute May 29 3:03pm Request for sterilization acute May 29, 2024 3:03pm Seasonal allergies acute May 29, 2024 3:03pm Supervision of high-risk acute May 29, 2024 3:03pm Abnormal glucose level acute [facility] 2024 9:07am Anxiety and depression acute [facility] 2024 9:07am Former smoker acute June 12, 2024 9:07am Gestational diabetes acute [facility] 2024 9:07am H/O pre-eclampsia in prior , currently acute [facility] 2024 9:07am 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, antepartum acute May 9:07am High cholesterol acute June 122024 9:07am Obesity affecting acute June 12, 2024 9:07am Ovarian cyst acute June 12, 2024 9:07am acute June 12 9:07am Request for sterilization acute June 12, 2024 9:07am Seasonal allergies acute June 12, 2024 9:07am Supervision of high-risk acute June 12, 2024 9:07am Abnormal glucose level acute [facility] 2024 12:15pm Anxiety and depression acute [facility] 2024 12:15pm Former smoker acute June 19, 2024 12:15pm Gestational diabetes acute [facility] 2024 12:15pm H/O pre-eclampsia in prior , currently acute [facility] 2024 12:15pm 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, antepartum acute May 12:15pm High cholesterol acute June 192024 12:15pm NST (non-stress test) reactive acute June 19, 2024 12:15pm Obesity affecting acute June 19, 2024 12:15pm Ovarian cyst acute June 19, 2024 12:15pm acute June 19 12:15pm Request for sterilization acute June 19, 2024 12:15pm Seasonal allergies acute June 19, 2024 12:15pm Supervision of high-risk acute June 19, 2024 12:15pm Abnormal glucose level acute Ap r[facility] 2024 9:29am Anxiety and depression acute Ap r[facility] 2024 9:29am Breech presentation acute June 23, 2024 9:29am Former smoker acute June 23, 2024 9:29am Gestational diabetes acute [facility] 2024 9:29am H/O pre-eclampsia in prior , currently acute Ap ril 2024 9:29am 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, antepartum acute June 23, 2024 9:29am High cholesterol acute June 9:29am NST (non-stress test) reactive acute June 23, 2024 9:29am Obesity affecting acute June 23, 2024 9:29am Ovarian cyst acute June 23, 2 025 9:29am acute June 23 9:29am Request for sterilization acute June 23, 2024 9:29am Seasonal allergies acute June 23, 2024 9:29am Supervision of high-risk acute June 23, 2024 9:29am [facility] Work Phone: 1(894) 574-442012-30-2024 Evaluation note* Diagnosis Onset Date Resolution Status Admit Date Anxiety and depression acute 2023 8:48am Former smoker acute March 202023 8:48am H/O pre-eclampsia in prior , currently acute 2023 8:48am 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, antepartum acute February 212023 8:48am High cholesterol acute March 20, 2024 8:48am Obesity affecting acute March 20, 2024 8:48am Ovarian cyst acute February 8:48am acute March 20, 2024 8:48am Request for sterilization acute March 20, 2024 8:48am Seasonal allergies acute [facility] 2023 8:48am Supervision of high-risk acute March 20, 2 024 8:48am Hypothyroidism resolved February 212023 8:48am Anxiety and depression acute [facility] 2024 8:23am Former smoker acute March 8:23am H/O pre-eclampsia in prior , currently acute [facility] 2024 8:23am 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, antepartum acute April 172024 8:23am High cholesterol acute April 17, 2024 8:23am Obesity affecting acute April 17, 2024 8:23am Ovarian cyst acute March 8:23am acute April 17, 2024 8:23am Request for sterilization acute April 17, 2024 8:23am Seasonal allergies acute 2024 8:23am Supervision of high-risk acute April 17 8:23am Abnormal glucose level acute Fe bruary 2024 12:50pm Anxiety and depression acute Fe bruary 2024 12:50pm Former smoker acute May 152024 12:50pm Gestational diabetes acute ua2024 12:50pm H/O pre-eclampsia in prior , currently acute Fe bruary 2024 12:50pm 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, antepartum acute April 232024 12:50pm High cholesterol acute May 15, 2024 12:50pm Obesity affecting acute May 15, 2024 12:50pm Ovarian cyst acute April 12:50pm acute May 15, 2024 12:50pm Request for sterilization acute May 15, 2024 12:50pm Seasonal allergies acute [facility] 2024 12:50pm Supervision of high-risk acute May 15 12:50pm Abnormal glucose level acute [facility] 2024 3:03pm Anxiety and depression acute [facility] 2024 3:03pm Former smoker acute May 29, 2024 3:03pm Gestational diabetes acute 2024 3:03pm H/O pre-eclampsia in prior , currently acute [facility] 2024 3:03pm 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, antepartum acute May 3:03pm High cholesterol acute May 292024 3:03pm Obesity affecting acute May 29, 2024 3:03pm Ovarian cyst acute May 29, 2024 3:03pm acute May 29 3:03pm Request for sterilization acute May 29, 2024 3:03pm Seasonal allergies acute May 29, 2024 3:03pm Supervision of high-risk acute May 29, 2024 3:03pm Abnormal glucose level acute [facility] 2024 9:07am Anxiety and depression acute [facility] 2024 9:07am Former smoker acute June 12, 2024 9:07am Gestational diabetes acute [facility] 2024 9:07am H/O pre-eclampsia in prior , currently acute [facility] 2024 9:07am 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, antepartum acute May 9:07am High cholesterol acute June 122024 9:07am Obesity affecting acute June 12, 2024 9:07am Ovarian cyst acute June 12, 2024 9:07am acute June 12 9:07am Request for sterilization acute June 12, 2024 9:07am Seasonal allergies acute June 12, 2024 9:07am Supervision of high-risk acute June 12, 2024 9:07am Abnormal glucose level acute [facility] 2024 12:15pm Anxiety and depression acute [facility] 2024 12:15pm Former smoker acute June 19, 2024 12:15pm Gestational diabetes acute [facility] 2024 12:15pm H/O pre-eclampsia in prior , currently acute [facility] 2024 12:15pm 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, antepartum acute May 12:15pm High cholesterol acute June 192024 12:15pm NST (non-stress test) reactive acute June 19, 2024 12:15pm Obesity affecting acute June 19, 2024 12:15pm Ovarian cyst acute June 19, 2024 12:15pm acute June 19 12:15pm Request for sterilization acute June 19, 2024 12:15pm Seasonal allergies acute June 19, 2024 12:15pm Supervision of high-risk acute June 19, 2024 12:15pm Abnormal glucose level acute Ap ril 2024 9:29am Anxiety and depression acute Ap ril 2024 9:29am Breech presentation acute June 23, 2024 9:29am Former smoker acute June 23, 2024 9:29am Gestational diabetes acute [facility] 2024 9:29am H/O pre-eclampsia in prior , currently acute Ap ril 2024 9:29am 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, antepartum acute June 23, 2024 9:29am High cholesterol acute June 9:29am NST (non-stress test) reactive acute June 23, 2024 9:29am Obesity affecting acute June 23, 2024 9:29am Ovarian cyst acute June 23, 2 025 9:29am acute June 23 9:29am Request for sterilization acute June 23, 2024 9:29am Seasonal allergies acute June 23, 2024 9:29am Supervision of high-risk acute June 23, 2024 9:29am Abnormal glucose level acute Ap ril 2024 9:44am Anxiety and depression acute Ap ril 2024 9:44am Breech presentation acute June 30, 2024 9:44am Former smoker acute June 30, 2024 9:44am Gestational diabetes acute [facility] 2024 9:44am H/O pre-eclampsia in prior , currently acute Ap ril 2024 9:44am 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, antepartum acute June 9:44am High cholesterol acute June 302024 9:44am NST (non-stress test) reactive acute June 30, 2024 9:44am Obesity affecting acute June 30, 2024 9:44am Ovarian cyst acute June 30, 2024 9:44am acute June 30 9:44am Request for sterilization acute June 30, 2024 9:44am Seasonal allergies acute June 30, 2024 9:44am Supervision of high-risk acute June 30, 2024 9:44am [facility] Work Phone: 1([phone]) 123-279212-30-2024 Evaluation note* Diagnosis Onset Date Resolution Status Admit Date Anxiety and depression acute De cember 2023 8:48am Former smoker acute March 202023 8:48am H/O pre-eclampsia in prior , currently acute c[facility]2023 8:48am 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, antepartum acute February 212023 8:48am High cholesterol acute March 20, 2024 8:48am Obesity affecting acute March 20, 2024 8:48am Ovarian cyst acute February 8:48am acute March 20, 2024 8:48am Request for sterilization acute March 20, 2024 8:48am Seasonal allergies acute Decemb er 2023 8:48am Supervision of high-risk acute March 20, 2 024 8:48am Hypothyroidism resolved February 212023 8:48am Anxiety and depression acute [facility] 2024 8:23am Former smoker acute March 8:23am H/O pre-eclampsia in prior , currently acute [facility] 2024 8:23am 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, antepartum acute April 172024 8:23am High cholesterol acute April 17, 2024 8:23am Obesity affecting acute April 17, 2024 8:23am Ovarian cyst acute March 8:23am acute April 17, 2024 8:23am Request for sterilization acute April 17, 2024 8:23am Seasonal allergies acute Maruar y 2024 8:23am Supervision of high-risk acute April 17 8:23am Abnormal glucose level acute [facility] 2024 12:50pm Anxiety and depression acute [facility] 2024 12:50pm Former smoker acute May 152024 12:50pm Gestational diabetes acute [facility] 2024 12:50pm H/O pre-eclampsia in prior , currently acute [facility] 2024 12:50pm 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, antepartum acute April 232024 12:50pm High cholesterol acute May 15, 2024 12:50pm Obesity affecting acute May 15, 2024 12:50pm Ovarian cyst acute April 12:50pm acute May 15, 2024 12:50pm Request for sterilization acute May 15, 2024 12:50pm Seasonal allergies acute Februa ry 2024 12:50pm Supervision of high-risk acute May 15 12:50pm Abnormal glucose level acute [facility] 2024 3:03pm Anxiety and depression acute [facility] 2024 3:03pm Former smoker acute May 29, 2024 3:03pm Gestational diabetes acute [facility] 2024 3:03pm H/O pre-eclampsia in prior , currently acute [facility]2024 3:03pm 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, antepartum acute May 3:03pm High cholesterol acute May 292024 3:03pm Obesity affecting acute May 29, 2024 3:03pm Ovarian cyst acute May 29, 2024 3:03pm acute May 29 3:03pm Request for sterilization acute May 29, 2024 3:03pm Seasonal allergies acute May 29, 2024 3:03pm Supervision of high-risk acute May 29, 2024 3:03pm Abnormal glucose level acute [facility] 2024 9:07am Anxiety and depression acute [facility] [facility]24 9:07am Former smoker acute June 12, 2024 9:07am Gestational diabetes acute [facility] 2024 9:07am H/O pre-eclampsia in prior , currently acute [facility] 2024 9:07am 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, antepartum acute May 9:07am High cholesterol acute June 122024 9:07am Obesity affecting acute June 12, 2024 9:07am Ovarian cyst acute June 12, 2024 9:07am acute June 12 9:07am Request for sterilization acute June 12, 2024 9:07am Seasonal allergies acute June 12, 2024 9:07am Supervision of high-risk acute June 12, 2024 9:07am Abnormal glucose level acute [facility] 2024 12:15pm Anxiety and depression acute [facility] 2024 12:15pm Former smoker acute June 19, 2024 12:15pm Gestational diabetes acute [facility] 2024 12:15pm H/O pre-eclampsia in prior , currently acute [facility] 2024 12:15pm 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, antepartum acute May 12:15pm High cholesterol acute June 192024 12:15pm NST (non-stress test) reactive acute June 19, 2024 12:15pm Obesity affecting acute June 19, 2024 12:15pm Ovarian cyst acute June 19, 2024 12:15pm acute June 19 12:15pm Request for sterilization acute June 19, 2024 12:15pm Seasonal allergies acute June 19, 2024 12:15pm Supervision of high-risk acute June 19, 2024 12:15pm Abnormal glucose level acute [facility] 2024 9:29am Anxiety and depression acute [facility] 2024 9:29am Former smoker acute June 23, 2024 9:29am Gestational diabetes acute [facility] 2024 9:29am H/O pre-eclampsia in prior , currently acute [facility] 2024 9:29am 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, antepartum acute June 23, 2024 9:29am High cholesterol acute June 9:29am NST (non-stress test) reactive acute June 23, 2024 9:29am Obesity affecting acute June 23, 2024 9:29am Ovarian cyst acute June 23, 025 9:29am acute June 23 9:29am Request for sterilization acute June 23, 2024 9:29am Seasonal allergies acute June 23, 2024 9:29am Supervision of high-risk acute June 23, 2024 9:29am Breech presentation resolved June 23, 2024 9:29am Abnormal glucose level acute [facility] r[facility] 2024 9:44am Anxiety and depression acute [facility] 2024 9:44am Former smoker acute June 30, 2024 9:44am Gestational diabetes acute [facility] 2024 9:44am H/O pre-eclampsia in prior , currently acute [facility] 2024 9:44am 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, antepartum acute June 9:44am High cholesterol acute June 302024 9:44am NST (non-stress test) reactive acute June 30, 2024 9:44am Obesity affecting acute June 30, 2024 9:44am Ovarian cyst acute June 30, 2024 9:44am acute June 30 9:44am Request for sterilization acute June 30, 2024 9:44am Seasonal allergies acute June 30, 2024 9:44am Supervision of high-risk acute June 30, 2024 9:44am Breech presentation resolved June 30, 2024 9:44am Abnormal glucose level acute Ap r[facility] 2024 12:50pm Anxiety and depression acute [facility] 2024 12:50pm Former smoker acute July 07, 2024 12:50pm Gestational diabetes acute [facility] 2024 12:50pm H/O pre-eclampsia in prior , currently acute [facility] r[facility] 2024 12:50pm 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, antepartum acute June 12:50pm High cholesterol acute July 072024 12:50pm NST (non-stress test) reactive acute July 07, 2024 12:50pm Obesity affecting acute July 07, 2024 12:50pm Ovarian cyst acute July 07, 2024 12:50pm acute July 07 12:50pm Request for sterilization acute July 07, 2024 12:50pm Seasonal allergies acute July 07, 2024 12:50pm Supervision of high-risk acute July 07, 2024 12:50pm Abnormal glucose level acute Ap r[facility] 2024 7:11am Anxiety and depression acute Ap r[facility] 2024 7:11am Encounter for induction of labor acute July 13, 2024 7:11am Former smoker acute July 13, 2024 7:11am Gestational diabetes acute [facility] 2024 7:11am H/O pre-eclampsia in prior , currently acute Ap r[facility] 2024 7:11am 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, antepartum acute June 7:11am High cholesterol acute July 132024 7:11am Obesity affecting acute July 13, 2024 7:11am Ovarian cyst acute July 13, 2024 7:11am acute July 13 7:11am Request for sterilization acute July 13, 2024 7:11am Seasonal allergies acute July 13, 2024 7:11am Supervision of high-risk acute July 13, 2024 7:11am Vaginal delivery acute July 132024 7:11am [facility] Work Phone: 1(282) 143-304912-09-2024 Evaluation note* Diagnosis Onset Date Resolution Status Admit Date Anxiety and depression acute De cember 2023 11:54am Former smoker acute February 11:54am H/O pre-eclampsia in prior , currently acute 2023 11:54am 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, antepartum acute February 272023 11:54am High cholesterol acute February 28, 2024 11:54am Obesity affecting acute February 28, 2024 11:54am Ovarian cyst acute February 11:54am acute February 28, 2024 11:54am Request for sterilization acute February 28, 2024 11:54am Seasonal allergies acute [facility] 2023 11:54am Supervision of high-risk acute February 27 11:54am Hypothyroidism resolved February 272023 11:54am [place]xiety [place] [facility] [place] Former smoker acute March 202023 8:48am H/O pre-eclampsia in prior , currently acute 2023 8:48am 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, antepartum acute February 212023 8:48am High cholesterol acute March 20, 2024 8:48am Obesity affecting acute March 20, 2024 8:48am Ovarian cyst acute February 8:48am acute March 20, 2024 8:48am Request for sterilization acute March 20, 2024 8:48am Seasonal allergies acute [facility] 2023 8:48am Supervision of high-risk acute March 20, 024 8:48am Hypothyroidism resolved February 212023 8:48am Anxiety and depression acute [facility] 2024 8:23am Former smoker acute March 8:23am H/O pre-eclampsia in prior , currently acute [facility] 2024 8:23am 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, antepartum acute April 172024 8:23am High cholesterol acute April 17, 2024 8:23am Obesity affecting acute April 17, 2024 8:23am Ovarian cyst acute March 8:23am acute April 17, 2024 8:23am Request for sterilization acute April 17, 2024 8:23am Seasonal allergies acute Maruar 2024 8:23am Supervision of high-risk acute April 17 8:23am Abnormal glucose level acute Fe bruary 2024 12:50pm Anxiety and depression acute Fe bruary 2024 12:50pm Former smoker acute May 152024 12:50pm Gestational diabetes acute [facility] 2024 12:50pm H/O pre-eclampsia in prior , currently acute Fe b[facility] 2024 12:50pm 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, antepartum acute April 232024 12:50pm High cholesterol acute May 15, 2024 12:50pm Obesity affecting acute May 15, 2024 12:50pm Ovarian cyst acute April 12:50pm acute May 15, 2024 12:50pm Request for sterilization acute May 15, 2024 12:50pm Seasonal allergies acute Februa ry 2024 12:50pm Supervision of high-risk acute May 15 12:50pm Abnormal glucose level acute [facility] 2024 3:03pm Anxiety and depression acute [facility] 2024 3:03pm Former smoker acute May 29, 2024 3:03pm Gestational diabetes acute 2024 3:03pm H/O pre-eclampsia in prior , currently acute [facility] 2024 3:03pm 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, antepartum acute May 3:03pm High cholesterol acute May 292024 3:03pm Obesity affecting acute May 29, 2024 3:03pm Ovarian cyst acute May 29, 2024 3:03pm acute May 29 3:03pm Request for sterilization acute May 29, 2024 3:03pm Seasonal allergies acute May 29, 2024 3:03pm Supervision of high-risk acute May 29, 2024 3:03pm [facility] Work Phone: 1(459) 863-280212-09-2024 Evaluation note* Diagnosis Onset Date Resolution Status Admit Date Anxiety and depression acute De cember 2023 11:54am Former smoker acute February 11:54am H/O pre-eclampsia in prior , currently acute 2023 11:54am 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, antepartum acute February 272023 11:54am High cholesterol acute February 28, 2024 11:54am Obesity affecting acute February 28, 2024 11:54am Ovarian cyst acute February 11:54am acute February 28, 2024 11:54am Request for sterilization acute February 28, 2024 11:54am Seasonal allergies acute [facility] 2023 11:54am Supervision of high-risk acute February 27 11:54am Hypothyroidism resolved February 272023 11:54am Anxiety and depression acute 2023 8:48am Former smoker acute March 202023 8:48am H/O pre-eclampsia in prior , currently acute 2023 8:48am 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, antepartum acute February 212023 8:48am High cholesterol acute March 20, 2024 8:48am Obesity affecting acute March 20, 2024 8:48am Ovarian cyst acute February 8:48am acute March 20, 2024 8:48am Request for sterilization acute March 20, 2024 8:48am Seasonal allergies acute [facility] 2023 8:48am Supervision of high-risk acute March 20, 024 8:48am Hypothyroidism resolved February 212023 8:48am Anxiety and depression acute [facility] 2024 8:23am Former smoker acute March 8:23am H/O pre-eclampsia in prior , currently acute [facility] 2024 8:23am 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, antepartum acute April 172024 8:23am High cholesterol acute April 17, 2024 8:23am Obesity affecting acute April 17, 2024 8:23am Ovarian cyst acute March 8:23am acute April 17, 2024 8:23am Request for sterilization acute April 17, 2024 8:23am Seasonal allergies acute Januar 2024 8:23am Supervision of high-risk acute April 17 8:23am Abnormal glucose level acute Fe bruary 2024 12:50pm Anxiety and depression acute Fe bruary 2024 12:50pm Former smoker acute May 152024 12:50pm Gestational diabetes acute [facility] 2024 12:50pm H/O pre-eclampsia in prior , currently acute Fe [facility]ruary 2024 12:50pm 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, antepartum acute April 232024 12:50pm High cholesterol acute May 15, 2024 12:50pm Obesity affecting acute May 15, 2024 12:50pm Ovarian cyst acute April 12:50pm acute May 15, 2024 12:50pm Request for sterilization acute May 15, 2024 12:50pm Seasonal allergies acute [facility] 2024 12:50pm Supervision of high-risk acute May 15 12:50pm Abnormal glucose level acute [facility] 2024 3:03pm Anxiety and depression acute [facility] 2024 3:03pm Former smoker acute May 29, 2024 3:03pm Gestational diabetes acute 2024 3:03pm H/O pre-eclampsia in prior , currently acute [facility] 2024 3:03pm 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, antepartum acute May 3:03pm High cholesterol acute May 292024 3:03pm Obesity affecting acute May 29, 2024 3:03pm Ovarian cyst acute May 29, 2024 3:03pm acute May 29 3:03pm Request for sterilization acute May 29, 2024 3:03pm Seasonal allergies acute May 29, 2024 3:03pm Supervision of high-risk acute May 29, 2024 3:03pm Abnormal glucose level acute [facility] 2024 9:07am Anxiety and depression acute [facility] 2024 9:07am Former smoker acute June 12, 2024 9:07am Gestational diabetes acute [facility] 2024 9:07am H/O pre-eclampsia in prior , currently acute [facility] 2024 9:07am 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, antepartum acute May 9:07am High cholesterol acute June 122024 9:07am Obesity affecting acute June 12, 2024 9:07am Ovarian cyst acute June 12, 2024 9:07am acute June 12 9:07am Request for sterilization acute June 12, 2024 9:07am Seasonal allergies acute June 12, 2024 9:07am Supervision of high-risk acute June 12, 2024 9:07am [facility] Work Phone: 1(506) 203-507112-09-2024 Evaluation note* Diagnosis Onset Date Resolution Status Admit Date Anxiety and depression acute 2023 11:54am Former smoker acute February 11:54am H/O pre-eclampsia in prior , currently acute 2023 11:54am 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, antepartum acute February 272023 11:54am High cholesterol acute February 28, 2024 11:54am Obesity affecting acute February 28, 2024 11:54am Ovarian cyst acute February 11:54am acute February 28, 2024 11:54am Request for sterilization acute February 28, 2024 11:54am Seasonal allergies acute [facility] 2023 11:54am Supervision of high-risk acute February 27 11:54am Hypothyroidism resolved February 272023 11:54am Anxiety and depression acute 2023 8:48am Former smoker acute March 202023 8:48am H/O pre-eclampsia in prior , currently acute 2023 8:48am 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, antepartum acute February 212023 8:48am High cholesterol acute March 20, 2024 8:48am Obesity affecting acute March 20, 2024 8:48am Ovarian cyst acute February 8:48am acute March 20, 2024 8:48am Request for sterilization acute March 20, 2024 8:48am Seasonal allergies acute [facility] 2023 8:48am Supervision of high-risk acute March 20 024 8:48am Hypothyroidism resolved February 212023 8:48am Anxiety and depression acute [facility] 2024 8:23am Former smoker acute March 8:23am H/O pre-eclampsia in prior , currently acute [facility] 2024 8:23am 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, antepartum acute April 172024 8:23am High cholesterol acute April 17, 2024 8:23am Obesity affecting acute April 17, 2024 8:23am Ovarian cyst acute March 8:23am acute April 17, 2024 8:23am Request for sterilization acute April 17, 2024 8:23am Seasonal allergies acute Maruar 2024 8:23am Supervision of high-risk acute April 17 8:23am Abnormal glucose level acute [facility] 2024 12:50pm Anxiety and depression acute [facility] 2024 12:50pm Former smoker acute May 152024 12:50pm Gestational diabetes acute Febr ua2024 12:50pm H/O pre-eclampsia in prior , currently acute [facility] 2024 12:50pm 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, antepartum acute April 232024 12:50pm High cholesterol acute May 15, 2024 12:50pm Obesity affecting acute May 15, 2024 12:50pm Ovarian cyst acute April 12:50pm acute May 15, 2024 12:50pm Request for sterilization acute May 15, 2024 12:50pm Seasonal allergies acute [facility] 2024 12:50pm Supervision of high-risk acute May 15 12:50pm Abnormal glucose level acute [facility] 2024 3:03pm Anxiety and depression acute [facility] 2024 3:03pm Former smoker acute May 29, 2024 3:03pm Gestational diabetes acute [facility] 2024 3:03pm H/O pre-eclampsia in prior , currently acute [facility] 2024 3:03pm 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, antepartum acute May 3:03pm High cholesterol acute May 292024 3:03pm Obesity affecting acute May 29, 2024 3:03pm Ovarian cyst acute May 29, 2024 3:03pm acute May 29 3:03pm Request for sterilization acute May 29, 2024 3:03pm Seasonal allergies acute May 29, 2024 3:03pm Supervision of high-risk acute May 29, 2024 3:03pm Abnormal glucose level acute [facility] 2024 9:07am Anxiety and depression acute [facility] 2024 9:07am Former smoker acute June 12, 2024 9:07am Gestational diabetes acute [facility] 2024 9:07am H/O pre-eclampsia in prior , currently acute [facility] 2024 9:07am 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, antepartum acute May 9:07am High cholesterol acute June 122024 9:07am Obesity affecting acute June 12, 2024 9:07am Ovarian cyst acute June 12, 2024 9:07am acute June 12 9:07am Request for sterilization acute June 12, 2024 9:07am Seasonal allergies acute June 12, 2024 9:07am Supervision of high-risk acute June 12, 2024 9:07am Abnormal glucose level acute [facility] 2024 12:15pm Anxiety and depression acute [facility] 2024 12:15pm Former smoker acute June 19, 2024 12:15pm Gestational diabetes acute [facility] 2024 12:15pm H/O pre-eclampsia in prior , currently acute [facility] 2024 12:15pm 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, antepartum acute May 12:15pm High cholesterol acute June 192024 12:15pm NST (non-stress test) reactive acute June 19, 2024 12:15pm Obesity affecting acute June 19, 2024 12:15pm Ovarian cyst acute June 19, 2024 12:15pm acute June 19 12:15pm Request for sterilization acute June 19, 2024 12:15pm Seasonal allergies acute June 19, 2024 12:15pm Supervision of high-risk acute June 19, 2024 12:15pm [facility] Work Phone: 1(186) 958-143909-06-2024 Emergency department Note* Yin iWnters RN - 11/26/2023 3:02 AM EDT Written and verbal discharge instructions given to patient. Patient verbally understood discharge instructions. Confirmed correct pharmacy with patient. Patient left in stable condition. [facility]09-06-2024 Emergency department Note* Yin Winters RN - 11/26/2023 3:02 AM EDT Written and verbal discharge instructions given to patient. Patient verbally understood discharge instructions. Confirmed correct pharmacy with patient. Patient left in stable condition. * Robyn Young DO - 11/25/2023 10:30 PM EDT Emergency Department Report [facility] EMERGENCY DEPARTMENT Service Date:.11/26/23 PCP: Nancy Sam Chief Complaint: Chief Complaint Patient presents with Abdominal Pain Pt to ED with abd pain x 4 days, and started having a fever today. Pt is currently 7 weeks pregenant. Denies any bleeding or spotting. Rates abd pain 6/10 @ this time. Temp in triage was 100.7F oral.No meds taken for pain today. RON Fuentes is a 28 y.o. female presents to the ED today due to abdominal pain and fever that started today. This 28-year-old female has had 1 miscarriage presents for evaluation of right lower abdominal pain and left upper abdominal pain and concerned that she may have an ectopic . The patient states she was taken several home tests and started having abdominal pain 4days ago. She states she feels bloated in her stomach feels hard. She has a decreased appetite and has had some mild loose stools. She denies any chest pain but has pain in the epigastrium. She states she has had some diarrhea but feels like she has to pass gas that is not coming out. She was not having any vaginal bleeding dizziness or syncope. She has not had an ultrasound during this pregnancyyet. She was not scheduled until December for her 1st ultrasound in [place], [place]. She started developing a fever today. She denies any cough or urinary symptoms. She has not had anyvaginal discharge or bleeding. She does have 2 children at home and one of them does have a fever. Review of Systems: Review of Systems All other systems reviewed and are negative. Past Medical History: Past Medical History: Diagnosis Date Essential hypertension, benign with Irregular heart rhythm with Past Surgical History: No past surgical history on file. Allergies: Allergies Allergen Reactions Tetanus Toxoid Tetanus Toxoid, Adsorbed Palpitations Amoxicillin Hives Mushroom Extract Complex Hives Mushrooms-Food Medications: Patient's Medications New Prescriptions DOCUSATE 100 MG CAPSULE Take 1 capsule by mouth at bedtime. Previous Medications BUPROPION 150 MG TABLET XL Take 1 tablet by mouth daily every morning. ROSUVASTATIN 5 MG TABLET Take 1 tablet by mouth daily. Modified Medications No medications on file Discontinued Medications No medications on file Family History: Family History Problem Relation Age of Onset Lipid Disorder Mother Hypertension Mother Mental Illness Mother depression Thyroid Disease Mother hypothyroidism Hypertension Father Heart Disease - Other Father Mental Illness Father depression Other - Specify Father alcohol/drug abuse Mental Illness Sister depression Other - Specify Sister asthma Mental Illness Paternal Grandmother depression Other - Specify Paternal Grandmother migraines Social History: Social History Socioeconomic History Marital status: Spouse name: Not on file Number of children: Not on file Years of education: Not on file Highest education level: Not on file Occupational History Not on file Tobacco Use Smoking status: Former Types: Cigars Quit date: 06/08/2021 Years since quittin.4 Smokeless tobacco: Never Tobacco comments: 2-3 times a week Vaping Use Vaping status: Never Used Substance and Sexual Activity Alcohol use: Never Drug use: No Sexual activity: Yes Other Topics Concern Service Not Asked Blood Transfusions Not Asked Caffeine Concern Not Asked Occupational Exposure Not Asked Hobby Hazards Not Asked Sleep Concern Not Asked Stress Concern Not Asked Weight Concern Not Asked Special Diet Not Asked Back Care Not Asked Exercise Not Asked Bike Helmet Not Asked Seat Belt Not Asked Domestic Violence No Social History Narrative Not on file Social Determinants of Health Financial Resource Strain: Not on file Food Insecurity: Not on file Transportation Needs: Not on file Physical Activity: Not on file Stress: Not on file Social Connections: Not on file Intimate Partner Violence: Not on file Housing Stability: Not on file Physical Exam: Physical Exam Vitals (Vital signs are reviewed. The patient is febrile, tachycardic, blood pressure is mildly elevated at 1 40/81, she was not hypoxic with pulse ox of 99% on room air) reviewed. Constitutional: Appearance: She is well-developed. Comments: Uncomfortable appearing moderately overweight female, no respiratory distress HENT: Head: Normocephalic and atraumatic. Eyes: Extraocular Movements: Extraocular movements intact. Cardiovascular: Rate and Rhythm: Regular rhythm. Tachycardia present. Heart sounds: Normal heart sounds. Pulmonary: Effort: Pulmonary effort is normal. Breath sounds: Normal breath sounds. Abdominal: General: Bowel sounds are decreased. There is distension. Palpations: Abdomen is rigid. Tenderness: There is abdominal tenderness in the right lower quadrant and left upper quadrant. Hernia: No hernia is present. Comments: Abdomen is diffusely tender and firm to the touch. She was tender with voluntary guardingin the right lower quadrant and left upper quadrant. Skin: General: Skin is warm and dry. Capillary Refill: Capillary refill takes less than 2 seconds. Neurological: General: No focal deficit present. Mental Status: She is alert. Psychiatric: Mood and Affect: Mood normal. Vital Signs During ED Visit Patient Vitals for the past 24 hrs: BP Temp Temp src Pulse Resp SpO2 Height Weight 11/26/23 0223 120/58 98.3 F (36.8 C) -- 97 14 99 % -- -- 11/26/23 0006 135/65 98.8 F (37.1 C) -- 94 15 96 % -- -- 11/25/23 2204 149/81 100.7 F (38.2 C) Oral 110 18 99 % 1.626 m (5' 4) 106.6 kg (235 lb) Orders/Results: Orders Placed This Encounter [facility] - NASOPHARYNGEAL BLOOD CULTURE, PERIPHERAL 1ST SITE BLOOD CULTURE, PERIPHERAL 2ND SITE CULTURE THROAT US PELVIC W TRANSVAGINAL US OB TRANSVAGINAL/CERVICAL LENGTH CT ABDOMEN/PELVIS WITH CONTRAST CHEM 7 (LYTES,BUN,CREA,GLUC) HEPATIC FUNCTION PANEL CBC, EDIF, PLATELET BETA HCG, QUAL, BLOOD BETA HCG, QUANT, BLOOD RAPID STREP A ANTIGEN INFLUENZA A AND B, PCR LACTATE, BLOOD LACTATE, BLOOD TYPE AND SCREEN - POSSIBLE TRANSFUSION Sodium chloride 0.9% IV solution 1,000 mL Acetaminophen (TYLENOL) tablet 650 mg iohexol (OMNIPAQUE) 350 MG/ML injection 75 mL Sodium chloride 0.9% IV solution 75 mL Docusate (COLACE) capsule 100 mg Docusate 100 MG capsule URINALYSIS, MACRO Results for orders placed or performed during the hospital encounter of 11/25/23 [facility] - NASOPHARYNGEAL Specimen: NASOPHARYNGEAL; Fluid/Swab Result Value Ref Range SARS COV 2 RNA, QL REAL TIME RT PCR NOT DETECTED NOT DETECTED NARRATIVE -1 This test was performed using isothermal EAR[employer] and has been approved as Emergency Use Authorization (EUA) for the qualitative detection [id number] nucleic acid. CHEM 7 (LYTES,BUN,CREA,GLUC) Result Value Ref Range Glucose 104 (H) 70 - 100 MG/DL BUN 11 7 - 20 MG/DL CREATININE SERUM 0.60 (L) 0.70 - 1.20 MG/DL SODIUM 136 (L) 137 - 145 MMOL/L POTASSIUM 3.9 3.5 - 5.1 MMOL/L CHLORIDE 106 98 - 107 MMOL/L CARBON DIOXIDE (CO2) 22 22 - 30 MMOL/L ESTIMATED GFR, NON AMER 126 ml/min/1.73sq.m ESTIMATED GFR, 152 ml/min/1.73sq.m GFR COMMENT Average GFR for 20-29 years old = 116. HEPATIC FUNCTION PANEL Result Value Ref Range Albumin 4.3 2.9 - 5.3 G/DL BILIRUBIN, TOTAL 0.5 0.2 - 1.3 MG/DL ALKALINE PHOSPHATASE 58 38 - 126 IU/L AST 22 14 - 36 IU/L BILIRUBIN, DIRECT 0.1 0.0 - 0.4 MG/DL PROTEIN, TOTAL 7.1 6.3 - 8.2 GM/DL ALT 21 <35 IU/L CBC, EDIF, PLATELET Result Value Ref Range WBC (WHITE BLOOD COUNT) 7.4 3.6 - 11.0 10*3/uL RBC 4.60 4.0 - 5.4 10*6/uL HEMOGLOBIN (HGB) 13.8 12.0 - 16.0 G/DL HEMATOCRIT (HCT) 41.0 36.0 - 48.0 % MEAN CELL VOLUME 89.2 80.0 - 100.0 FL Mean Cell HGB 30.0 26.0 - 35.0 PG MEAN CELL HGB CONCENTRATION 33.7 27.0 - 37.0 G/DL RBC DISTRIBUTION 13.6 11.5 - 14.5 % PLATELET COUNT 229 130 - 400 10*3/uL MEAN PLATELET VOLUME 8.7 7.4 - 11.0 FL DIFFERENTIAL TYPE AUTO DIFF % NEUTROPHILS 87.0 (H) 37.0 - 75.0 % LYMPHOCYTE 6.5 (L) 20.0 - 55.0 % MONOCYTE % 5.8 0.0 - 10.0 % EOSINOPHIL % 0.5 0.0 - 11.0 % BASOPHIL % 0.2 0.0 - 2.0 % Absolute Neutrophil Count 6.4 1.4 - 6.5 10*3/uL LYMPHOCYTES, ABSOLUTE 0.5 (L) 1.2 - 3.4 10*3/uL MONOCYTES, ABSOLUTE 0.4 0.0 - 0.7 10*3/uL ABSOLUTE EOSINOPHIL COUNT 0.0 0.0 - 0.7 10*3/uL ABSOLUTE BASOPHIL COUNT 0.0 0.0 - 0.2 10*3/uL BETA HCG, QUAL, BLOOD Result Value Ref Range BETA HCG (QUAL), SERUM POSITIVE (A) NEGATIVE BETA HCG, QUANT, BLOOD Result Value Ref Range BETA HCG, QUANT, 13,576.00 MIU/ML RAPID STREP A ANTIGEN Result Value Ref Range RAPID STREP, GROUP A NEGATIVE NEGATIVE INFLUENZA A AND B, PCR Result Value Ref Range INFLUENZA A NEGATIVE NEGATIVE INFLUENZA B NEGATIVE NEGATIVE LACTATE, BLOOD Result Value Ref Range LACTATE 1.4 0.7 - 2.0 mmol/L TYPE AND SCREEN - POSSIBLE TRANSFUSION Result Value Ref Range EXPIRATION DATE 11/28/2023,1773 ABO/RH(D) AB POSITIVE ANTIBODY SCREEN NEGATIVE ARM BAND NUMBER [id number] URINALYSIS, MACRO Result Value Ref Range COLOR, URINE YELLOW YELLOW APPEARANCE, URINE CLEAR CLEAR Specific [place], Urine >1.030 (H) 1.010 - 1.025 PH URINE 6.5 5.0 - 7.0 Urine Protein NEGATIVE NEGATIVE mg/dl GLUCOSE, URINE NEGATIVE NEGATIVE mg/dl KETONES, URINE NEGATIVE NEGATIVE mg/dl BILIRUBIN, URINE NEGATIVE NEGATIVE BLOOD, URINE DIPSTICK NEGATIVE NEGATIVE NITRITES, URINE NEGATIVE NEGATIVE UROBILINOGEN, URINE 0.2 0.2 - 1.0 E.U./dL LEUKOCYTE ESTERASE, URINE NEGATIVE NEGATIVE Radiographic Imaging CT ABDOMEN/PELVIS WITH CONTRAST Final Result IMPRESSION: 1. There are no acute findings. 2. There is a 2.8 cm left ovarian cyst US OB TRANSVAGINAL/CERVICAL LENGTH Final Result IMPRESSION: Gestational sac with a yolk sac, pole and heartbeat. Gestational age is 6 weeks 1 day with estimated date of delivery of 07/22/2024. US PELVIC W TRANSVAGINAL (Results Pending) Procedures: Procedures Moderate Sedation Procedure: No ED Summary/MDM This 28-year-old female who has had 1 miscarriage presents for evaluation of 4 days of abdominal pain. The patient states she feels like she has a lot of gas in her abdomen and she can not pass the gas although she was belching somewhat. She has had a decreased appetite with mild nausea that she attributed to symptoms of and today developed a fever. Her one child does have a fever as well. She does not have any sore throat, runny nose or cough. She was concerned that she may havean ectopic . She does have diffuse abdominal tenderness and localizes to the right lower quadrant and left upper quadrant. No medications were taken prior to arrival. An IV was placed and she was medicated with IV fluids and Tylenol. Routine labs were ordered. She has a normal white count and hemoglobin. Her test is positive. Beta quantitative hCG is greater than 13,000. Type and screen was ordered. Urine is negative for infection. COVID-19 and influenza is negative. Electrolytes are normal. Ultrasound of the abdomen and pelvis shows an intrauterine without sign of ectopic . The results of all of these findings were discussed with her and in light of her right lower quadrant abdominal pain with voluntary guarding, decreased appetite and now fever I am concerned that she may have an appendicitis. She consented to a CT scan of the abdomen and pelvis despite the positive test to rule out appendicitis. CT scan of the abdomen and pelvis is negative for appendicitis and does not show any acute findings but does show a2.8 cm left ovarian cyst which is likely a corpus luteum cyst in light of her . The results of the CT scan were discussed with her. I discussed with her that she may have a viral syndrome aurora ecially in light of the fact that 1 of her children are sick currently. She will be given a dose ofColace prior to discharge and discharged home with a prescription for Colace with recommendation for close follow up with OBGYN. Clinical Impression: 1. Lower abdominal pain 2. First trimester 3. Fever, unspecified fever cause 4. Cyst of left ovary No follow-ups on file. New Prescriptions DOCUSATE 100 MG CAPSULE Take 1 capsule by mouth at bedtime. Discontinued Medications No medications on file An After Visit Summary was printed and given to the patient with above information. . . Robyn Young DO 11/26/23 0251 [facility] Discharge instructions* Discharge Instructions* Robyn Young DO - 11/26/2023 2:47 AM EDT Rest, drink plenty of fluids, use Tylenol for fever. Return emergency department for worsening abdominal pain, inability to tolerate your medications or any concerns. Please follow up closely with your OBGYN * Attachments The following attachments cannot be sent through Care Everywhere. * Fever: General Info ([place]) * Abdominal Pain ([place]) * : Abdominal Pain ([place]) documented in this [facility]09-05-2024 Physician Emergency department Note* Robyn Young DO - 11/25/2023 10:30 PM EDT Emergency Department Report [facility] EMERGENCY DEPARTMENT Service Date:.11/26/23 PCP: Nancy Sam Chief Complaint: Chief Complaint Patient presents with Abdominal Pain Pt to ED with abd pain x 4 days, and started having a fever today. Pt is currently 7 weeks pregenant. Denies any bleeding or spotting. Rates abd pain 08/29 @ this time. Temp in triage was 100.7F oral.No meds taken for pain today. HPI Yusra Fuentes is a 28 y.o. female presents to the ED today due to abdominal pain and fever that started today. This 28-year-old female has had 1 miscarriage presents for evaluation of right lower abdominal pain and left upper abdominal pain and concerned that she may have an ectopic . The patient states she was taken several home tests and started having abdominal pain 4days ago. She states she feels bloated in her stomach feels hard. She has a decreased appetite and has had some mild loose stools. She denies any chest pain but has pain in the epigastrium. She states she has had some diarrhea but feels like she has to pass gas that is not coming out. She was not having any vaginal bleeding dizziness or syncope. She has not had an ultrasound during this pregnancyyet. She was not scheduled until December for her 1st ultrasound in [place], [place]. She started developing a fever today. She denies any cough or urinary symptoms. She has not had anyvaginal discharge or bleeding. She does have 2 children at home and one of them does have a fever. Review of Systems: Review of Systems All other systems reviewed and are negative. Past Medical History: Past Medical History: Diagnosis Date Essential hypertension, benign with Irregular heart rhythm with Past Surgical History: No past surgical history on file. Allergies: Allergies Allergen Reactions Tetanus Toxoid Tetanus Toxoid, Adsorbed Palpitations Amoxicillin Hives Mushroom Extract Complex Hives Mushrooms-Food Medications: Patient's Medications New Prescriptions DOCUSATE 100 MG CAPSULE Take 1 capsule by mouth at bedtime. Previous Medications BUPROPION 150 MG TABLET XL Take 1 tablet by mouth daily every morning. ROSUVASTATIN 5 MG TABLET Take 1 tablet by mouth daily. Modified Medications No medications on file Discontinued Medications No medications on file Family History: Family History Problem Relation Age of Onset Lipid Disorder Mother Hypertension Mother Mental Illness Mother depression Thyroid Disease Mother hypothyroidism Hypertension Father Heart Disease - Other Father Mental Illness Father depression Other - Specify Father alcohol/drug abuse Mental Illness Sister depression Other - Specify Sister asthma Mental Illness Paternal Grandmother depression Other - Specify Paternal Grandmother migraines Social History: Social History Socioeconomic History Marital status: Spouse name: Not on file Number of children: Not on file Years of education: Not on file Highest education level: Not on file Occupational History Not on file Tobacco Use Smoking status: Former Types: Cigars Quit date: 06/08/2021 Years since quittin.4 Smokeless tobacco: Never Tobacco comments: 2-3 times a week Vaping Use Vaping status: Never Used Substance and Sexual Activity Alcohol use: Never Drug use: No Sexual activity: Yes Other Topics Concern Service Not Asked Blood Transfusions Not Asked Caffeine Concern Not Asked Occupational Exposure Not Asked Hobby Hazards Not Asked Sleep Concern Not Asked Stress Concern Not Asked Weight Concern Not Asked Special Diet Not Asked Back Care Not Asked Exercise Not Asked Bike Helmet Not Asked Seat Belt Not Asked Domestic Violence No Social History Narrative Not on file Social Determinants of Health Financial Resource Strain: Not on file Food Insecurity: Not on file Transportation Needs: Not on file Physical Activity: Not on file Stress: Not on file Social Connections: Not on file Intimate Partner Violence: Not on file Housing Stability: Not on file Physical Exam: Physical Exam Vitals (Vital signs are reviewed. The patient is febrile, tachycardic, blood pressure is mildly elevated at 1 40/81, she was not hypoxic with pulse ox of 99% on room air) reviewed. Constitutional: Appearance: She is well-developed. Comments: Uncomfortable appearing moderately overweight female, no respiratory distress HENT: Head: Normocephalic and atraumatic. Eyes: Extraocular Movements: Extraocular movements intact. Cardiovascular: Rate and Rhythm: Regular rhythm. Tachycardia present. Heart sounds: Normal heart sounds. Pulmonary: Effort: Pulmonary effort is normal. Breath sounds: Normal breath sounds. Abdominal: General: Bowel sounds are decreased. There is distension. Palpations: Abdomen is rigid. Tenderness: There is abdominal tenderness in the right lower quadrant and left upper quadrant. Hernia: No hernia is present. Comments: Abdomen is diffusely tender and firm to the touch. She was tender with voluntary guardingin the right lower quadrant and left upper quadrant. Skin: General: Skin is warm and dry. Capillary Refill: Capillary refill takes less than 2 seconds. Neurological: General: No focal deficit present. Mental Status: She is alert. Psychiatric: Mood and Affect: Mood normal. Vital Signs During ED Visit Patient Vitals for the past 24 hrs: BP Temp Temp src Pulse Resp SpO2 Height Weight 11/26/23 0223 120/58 98.3 F (36.8 C) -- 97 14 99 % -- -- 11/26/23 0006 135/65 98.8 F (37.1 C) -- 94 15 96 % -- -- 11/25/23 2204 149/81 100.7 F (38.2 C) Oral 110 18 99 % 1.626 m (5' 4) 106.6 kg (235 lb) Orders/Results: Orders Placed This Encounter [facility] - NASOPHARYNGEAL BLOOD CULTURE, PERIPHERAL 1ST SITE BLOOD CULTURE, PERIPHERAL 2ND SITE CULTURE THROAT US PELVIC W TRANSVAGINAL US OB TRANSVAGINAL/CERVICAL LENGTH CT ABDOMEN/PELVIS WITH CONTRAST CHEM 7 (LYTES,BUN,CREA,GLUC) HEPATIC FUNCTION PANEL CBC, EDIF, PLATELET BETA HCG, QUAL, BLOOD BETA HCG, QUANT, BLOOD RAPID STREP A ANTIGEN INFLUENZA A AND B, PCR LACTATE, BLOOD LACTATE, BLOOD TYPE AND SCREEN - POSSIBLE TRANSFUSION Sodium chloride 0.9% IV solution 1,000 mL Acetaminophen (TYLENOL) tablet 650 mg iohexol (OMNIPAQUE) 350 MG/ML injection 75 mL Sodium chloride 0.9% IV solution 75 mL Docusate (COLACE) capsule 100 mg Docusate 100 MG capsule URINALYSIS, MACRO Results for orders placed or performed during the hospital encounter of 11/25/23 [facility] - NASOPHARYNGEAL Specimen: NASOPHARYNGEAL; Fluid/Swab Result Value Ref Range SARS COV 2 RNA, QL REAL TIME RT PCR NOT DETECTED NOT DETECTED NARRATIVE -1 This test was performed using isothermal EARL and has been approved as Emergency Use Authorization (EUA) for the qualitative detection [id number] nucleic acid. CHEM 7 (LYTES,BUN,CREA,GLUC) Result Value Ref Range Glucose 104 (H) 70 - 100 MG/DL BUN 11 7 - 20 MG/DL CREATININE SERUM 0.60 (L) 0.70 - 1.20 MG/DL SODIUM 136 (L) 137 - 145 MMOL/L POTASSIUM 3.9 3.5 - 5.1 MMOL/L CHLORIDE 106 98 - 107 MMOL/L CARBON DIOXIDE (CO2) 22 22 - 30 MMOL/L ESTIMATED GFR, NON AMER 126 ml/min/1.73sq.m ESTIMATED GFR, 152 ml/min/1.73sq.m GFR COMMENT Average GFR for 20-29 years old = 116. HEPATIC FUNCTION PANEL Result Value Ref Range Albumin 4.3 2.9 - 5.3 G/DL BILIRUBIN, TOTAL 0.5 0.2 - 1.3 MG/DL ALKALINE PHOSPHATASE 58 38 - 126 IU/L AST 22 14 - 36 IU/L BILIRUBIN, DIRECT 0.1 0.0 - 0.4 MG/DL PROTEIN, TOTAL 7.1 6.3 - 8.2 GM/DL ALT 21 <35 IU/L CBC, EDIF, PLATELET Result Value Ref Range WBC (WHITE BLOOD COUNT) 7.4 3.6 - 11.0 10*3/uL RBC 4.60 4.0 - 5.4 10*6/uL HEMOGLOBIN (HGB) 13.8 12.0 - 16.0 G/DL HEMATOCRIT (HCT) 41.0 36.0 - 48.0 % MEAN CELL VOLUME 89.2 80.0 - 100.0 FL Mean Cell HGB 30.0 26.0 - 35.0 PG MEAN CELL HGB CONCENTRATION 33.7 27.0 - 37.0 G/DL RBC DISTRIBUTION 13.6 11.5 - 14.5 % PLATELET COUNT 229 130 - 400 10*3/uL MEAN PLATELET VOLUME 8.7 7.4 - 11.0 FL DIFFERENTIAL TYPE AUTO DIFF % NEUTROPHILS 87.0 (H) 37.0 - 75.0 % LYMPHOCYTE 6.5 (L) 20.0 - 55.0 % MONOCYTE % 5.8 0.0 - 10.0 % EOSINOPHIL % 0.5 0.0 - 11.0 % BASOPHIL % 0.2 0.0 - 2.0 % Absolute Neutrophil Count 6.4 1.4 - 6.5 10*3/uL LYMPHOCYTES, ABSOLUTE 0.5 (L) 1.2 - 3.4 10*3/uL MONOCYTES, ABSOLUTE 0.4 0.0 - 0.7 10*3/uL ABSOLUTE EOSINOPHIL COUNT 0.0 0.0 - 0.7 10*3/uL ABSOLUTE BASOPHIL COUNT 0.0 0.0 - 0.2 10*3/uL BETA HCG, QUAL, BLOOD Result Value Ref Range BETA HCG (QUAL), SERUM POSITIVE (A) NEGATIVE BETA HCG, QUANT, BLOOD Result Value Ref Range BETA HCG, QUANT, 13,576.00 MIU/ML RAPID STREP A ANTIGEN Result Value Ref Range RAPID STREP, GROUP A NEGATIVE NEGATIVE INFLUENZA A AND B, PCR Result Value Ref Range INFLUENZA A NEGATIVE NEGATIVE INFLUENZA B NEGATIVE NEGATIVE LACTATE, BLOOD Result Value Ref Range LACTATE 1.4 0.7 - 2.0 mmol/L TYPE AND SCREEN - POSSIBLE TRANSFUSION Result Value Ref Range EXPIRATION DATE 11/28/2023,2359 ABO/RH(D) AB POSITIVE ANTIBODY SCREEN NEGATIVE ARM BAND NUMBER [id number] URINALYSIS, MACRO Result Value Ref Range COLOR, URINE YELLOW YELLOW APPEARANCE, URINE CLEAR CLEAR Specific [place], Urine >1.030 (H) 1.010 - 1.025 PH URINE 6.5 5.0 - 7.0 Urine Protein NEGATIVE NEGATIVE mg/dl GLUCOSE, URINE NEGATIVE NEGATIVE mg/dl KETONES, URINE NEGATIVE NEGATIVE mg/dl BILIRUBIN, URINE NEGATIVE NEGATIVE BLOOD, URINE DIPSTICK NEGATIVE NEGATIVE NITRITES, URINE NEGATIVE NEGATIVE UROBILINOGEN, URINE 0.2 0.2 - 1.0 E.U./dL LEUKOCYTE ESTERASE, URINE NEGATIVE NEGATIVE Radiographic Imaging CT ABDOMEN/PELVIS WITH CONTRAST Final Result IMPRESSION: 1. There are no acute findings. 2. There is a 2.8 cm left ovarian cyst US OB TRANSVAGINAL/CERVICAL LENGTH Final Result IMPRESSION: Gestational sac with a yolk sac, pole and heartbeat. Gestational age is 6 weeks 1 day with estimated date of delivery of 07/22/2024. US PELVIC W TRANSVAGINAL (Results Pending) Procedures: Procedures Moderate Sedation Procedure: No ED Summary/MDM This 28-year-old female who has had 1 miscarriage presents for evaluation of 4 days of abdominal pain. The patient states she feels like she has a lot of gas in her abdomen and she can not pass the gas although she was belching somewhat. She has had a decreased appetite with mild nausea that she attributed to symptoms of and today developed a fever. Her one child does have a fever as well. She does not have any sore throat, runny nose or cough. She was concerned that she may havean ectopic . She does have diffuse abdominal tenderness and localizes to the right lower quadrant and left upper quadrant. No medications were taken prior to arrival. An IV was placed and she was medicated with IV fluids and Tylenol. Routine labs were ordered. She has a normal white count and hemoglobin. Her test is positive. Beta quantitative hCG is greater than 13,000. Type and screen was ordered. Urine is negative for infection. COVID-19 and influenza is negative. Electrolytes are normal. Ultrasound of the abdomen and pelvis shows an intrauterine without sign of ectopic . The results of all of these findings were discussed with her and in light of her right lower quadrant abdominal pain with voluntary guarding, decreased appetite and now fever I am concerned that she may have an appendicitis. She consented to a CT scan of the abdomen and pelvis despite the positive test to rule out appendicitis. CT scan of the abdomen and pelvis is negative for appendicitis and does not show any acute findings but does show a2.8 cm left ovarian cyst which is likely a corpus luteum cyst in light of her . The results of the CT scan were discussed with her. I discussed with her that she may have a viral syndrome aurora ecially in light of the fact that 1 of her children are sick currently. She will be given a dose ofColace prior to discharge and discharged home with a prescription for Colace with recommendation for close follow up with OBGYN. Clinical Impression: 1. Lower abdominal pain 2. First trimester 3. Fever, unspecified fever cause 4. Cyst of left ovary No follow-ups on file. New Prescriptions DOCUSATE 100 MG CAPSULE Take 1 capsule by mouth at bedtime. Discontinued Medications No medications on file An After Visit Summary was printed and given to the patient with above information. . . Robyn Young DO 11/26/23 0251 [facility] Evaluation + Plan note* Assessment & Plan Note - LISETTE Lopez - 10/18/2023 8:38 AM EDTAssociated Problem(s): Constipation Has 1-2 Bms a week. Educated regarding use of metamucil fiber supplementation daily. Drink 3-4 liters of water daily. [facility] Miscellaneous Notes* Assessment & Plan Note - LISETTE Lopez - 10/18/2023 8:38 AM EDTAssociated Problem(s): Constipation Has 1-2 Bms a week. Educated regarding use of metamucil fiber supplementation daily. Drink 3-4 liters of water daily. * Assessment & Plan Note - LISETTE Lopez - 10/18/2023 8:31 AM EDT Associated Problem(s): Obesity, Class III, BMI 40-49.9 (morbid obesity) BMI of 40.78 indicating morbid obesity. Recommend healthy diet/exercise. * Assessment & Plan Note - LISETTE Lopez - 10/18/2023 8:21 AM EDT Associated Problem(s): Elevated LDL cholesterol level Previous labs 09/15/2023 revealed lipid panel revealed elevated cholesterol 240, elevated triglycerides of 171, elevated LDL of 163. Continue Rosuvastatin 5mg at bedtime. Recommend high fiber/low fat diet. * Assessment & Plan Note - LISETTE Lopez - 10/18/2023 8:20 AM EDT Associated Problem(s): Anxiety and depression PHQ-9: score of 15. DAVION-7: score of 8. Patient reported difficulty with compliance of BID dosing of Wellbutrin. Switching from 75mg BID to 150mg XL for daily dosing of Wellbutrin. Will follow-up in 1-2 months to evaluate for further improvement in symptoms. [facility] Evaluation + Plan note * Assessment & Plan Note - LISETTE Lopez - 10/18/2023 8:31 AM EDT Associated Problem(s): Obesity, Class III, BMI 40-49.9 (morbid obesity) BMI of 40.78 indicating morbid obesity. Recommend healthy diet/exercise. [facility] History of Present illness Narrative* LISETTE Lopez - 10/18/2023 8:30 AM EDT Chief complaint: Presents for follow-up. HPI: Patient is a 28-year-old female who presents for follow-up. Patient is new to me. Patient's PCP is currently Nancy Sam CNP. Patient was previously evaluated by her PCP 09/13/2023 for anxiety/depression, binge eating disorder. Patient is currently taking Wellbutrin 75 mg b.i.d.. Patient had previous labs 09/15/2023 that revealed normal CBC, normal CMP, lipid panel revealed elevated cholesterol 240, elevated triglycerides of 171, elevated LDL of 163 and was started on Crestor, normal vitamin-D, normal TSH, normal B12, normal sed rate and CRP. PHQ-9: score of 15. DAVION-7: score of 8. During today's visit, patient reports she is doing well. Indicates she is having difficulty remembering to take Wellbutrin BID. Would like to switch to daily dosing. Feels depression/anxiety have improved with Wellbutrin. Is taking Rosuvastatin daily without myalgias. Is having 1-2 formed Bms a week for years. Denies black/bloody stools, nausea/vomiting, fevers/chills, and denies having any othercomplaints. Vital signs today: BP slightly elevated today at 140/60. BP rechecked personally at 120/80. Most Recent 10/19/21 - 10/18/23 BP 140/60 10/18/23 08:29 Pulse (Heart Rate) 85 10/18/23 08:29 Resp Rate 14 10/18/23 08:29 Temp 97.2 F (36.2 C) 10/18/23 08:29 Weight 107.8 kg (237 lb 9.6 oz) 10/18/23 08:29 Height 1.626 m (5' 4) 10/18/23 08:29 BMI (Calculated) 40.9 10/18/23 08:29 BSA (Calculated - sq m) 2.1 m2 10/18/23 08:29 O2 Sat (%) 97 % 10/18/23 08:29 Past History Information Past Medical History: Diagnosis Date Essential hypertension, benign with Irregular heart rhythm with No past surgical history on file. Social History Substance and Sexual Activity Sexual Activity Yes Social History Socioeconomic History Marital status: Spouse name: Not on file Number of children: Not on file Years of education: Not on file Highest education level: Not on file Occupational History Not on file Tobacco Use Smoking status: Former Types: Cigars Quit date: 06/08/2021 Years since quittin.3 Smokeless tobacco: Never Tobacco comments: 2-3 times a week Vaping Use Vaping status: Never Used Substance and Sexual Activity Alcohol use: Never Drug use: No Sexual activity: Yes Other Topics Concern Service Not Asked Blood Transfusions Not Asked Caffeine Concern Not Asked Occupational Exposure Not Asked Hobby Hazards Not Asked Sleep Concern Not Asked Stress Concern Not Asked Weight Concern Not Asked Special Diet Not Asked Back Care Not Asked Exercise Not Asked Bike Helmet Not Asked Seat Belt Not Asked Domestic Violence No Social History Narrative Not on file Social Determinants of Health Financial Resource Strain: Not on file Food Insecurity: Not on file Transportation Needs: Not on file Physical Activity: Not on file Stress: Not on file Social Connections: Not on file Intimate Partner Violence: Not on file Housing Stability: Not on file Immunization History Administered Date(s) Administered Influenza, injectable, quadrivalent, preservative free 02/21/2019 MMR Vaccine 04/20/2015 Atherosclerotic Cardiovascular Disease Risk Scoring The ASCVD Risk score (Ally ORTIZ, et al., 2019) failed to calculate for the following reasons: The 2019 ASCVD risk score is only valid for ages 40 to 79 Current Meds Current Outpatient Medications: buPROPion 75 MG tablet, Take 1 tablet by mouth 2 times daily., Disp: 60 tablet, Rfl: 0 Rosuvastatin 5 MG tablet, Take 1 tablet by mouth daily., Disp: 90 tablet, Rfl: 0 Allergies Allergies Allergen Reactions Tetanus Toxoid Tetanus Toxoid, Adsorbed Palpitations Amoxicillin Hives Mushroom Extract Complex Hives Mushrooms-Food Review of Systems Constitutional: Negative for chills and fever. Respiratory: Negative for cough and shortness of breath. Cardiovascular: Negative for chest pain. Gastrointestinal: Negative for abdominal pain, nausea and vomiting. Genitourinary: Negative for difficulty urinating. Musculoskeletal: Negative for arthralgias. Neurological: Negative for dizziness. Psychiatric/Behavioral: Negative for agitation. Physical Exam Physical Exam Constitutional: Appearance: Normal appearance. HENT: Head: Normocephalic and atraumatic. Cardiovascular: Rate and Rhythm: Normal rate and regular rhythm. Pulses: Normal pulses. Heart sounds: Normal heart sounds. Pulmonary: Effort: Pulmonary effort is normal. No respiratory distress. Breath sounds: Normal breath sounds. No wheezing or rales. Abdominal: General: Bowel sounds are normal. There is no distension. Palpations: Abdomen is soft. Tenderness: There is no abdominal tenderness. There is no guarding. Skin: General: Skin is warm and dry. Coloration: Skin is not jaundiced. Findings: No bruising. Neurological: Mental Status: She is alert and oriented to person, place, and time. Psychiatric: Behavior: Behavior normal. Plan and Assessment Anxiety and depression PHQ-9: score of 15. DAVION-7: score of 8. Patient reported difficulty with compliance of BID dosing of Wellbutrin. Switching from 75mg BID to 150mg XL for daily dosing of Wellbutrin. Will follow-up in 1-2 months to evaluate for further improvement in symptoms. Elevated LDL cholesterol level Previous labs 09/15/2023 revealed lipid panel revealed elevated cholesterol 240, elevated triglycerides of 171, elevated LDL of 163. Continue Rosuvastatin 5mg at bedtime. Recommend high fiber/low fat diet. Constipation Has 1-2 Bms a week. Educated regarding use of metamucil fiber supplementation daily. Drink 3-4 liters of water daily. Obesity, Class III, BMI 40-49.9 (morbid obesity) BMI of 40.78 indicating morbid obesity. Recommend healthy diet/exercise. LISETTE Lopez * Connie Pena - 10/18/2023 8:30 AM EDT ANXIETY: She Is taking her medication as ordered. She has noticed a decrease in symptoms and deniesside effects from medication. Symptoms present include: Feeling nervous, anxious, or on edge, Not being able to stop or control worrying, Being so restless that it's hard to sit still, Becoming easily annoyed or irritable, and Feeling afraid as if something awful might happen DAVION Score: 8 Depression: Her depression is improved. She is taking her medications as ordered. Symptoms present include: Little Interest or Pleasure in doing things, Feeling down, depressed, or hopeless, Trouble Falling asleep, staying asleep, or sleeping too much, Feeling tired or having little energy, Poor Appetite or Overeating, Feeling bad about themself, that they are a failure or have let others down, and Trouble concentrating on things PHQ-9 Score: 15 HYPERLIPIDEMIA She is taking medications as directed. Labs done outside of [facility]: No Her last lipid panel was done on 09/13/23, and her ratio of Total Cholesterol/HDL was 5.58. She is not having medication side effects. There is not a FH of IHD or stroke. Lab Results Component Value Date CHOLESTEROL 240 (H) 09/15/2023 TRIG 171 (H) 09/15/2023 HDL 43 09/15/2023 LDLCALC 163 (H) 09/15/2023 [facility] Evaluation + Plan note * Assessment & Plan Note - LISETTE Lopez - 10/18/2023 8:21 AM EDT Associated Problem(s): Elevated LDL cholesterol level Previous labs 09/15/2023 revealed lipid panel revealed elevated cholesterol 240, elevated triglycerides of 171, elevated LDL of 163. Continue Rosuvastatin 5mg at bedtime. Recommend high fiber/low fat diet. [facility]29[facility] Evaluation + Plan note* Assessment & Plan Note - LISETTE Lopez - 10/18/2023 8:20 AM EDTAssociated Problem(s): Anxiety and depression PHQ-9: score of 15. DAVION-7: score of 8. Patient reported difficulty with compliance of BID dosing of Wellbutrin. Switching from 75mg BID to 150mg XL for daily dosing of Wellbutrin. Will follow-up in 1-2 months to evaluate for further improvement in symptoms. [facility] History of Present illness Narrative* Dominga Ren LPN - 09/13/2023 8:50 AM EDT She is here wanting labs done and to restart medication for ANX and DEP. She is c/o fatigue, trouble sleeping, and weight gain. Her Mom has Hypothyroidism and she is concerned she has these symptoms. Anxiety: She has not noticed a decrease in symptomsSymptoms present include: .Feeling nervous, anxious, or on edge, Not being able to stop or control worrying, Worrying too much about different things, Trouble relaxing, Being so restless that it's hard to sit still, Becoming easily annoyed or irritable, and Feeling afraid as if something awful might happen DAVION Score: 14 Depression: Symptoms present include: Little Interest or Pleasure in doing things, Feeling down, depressed, or hopeless, Trouble Falling asleep, staying asleep, or sleeping too much, Feeling tired orhaving little energy, Poor Appetite or Overeating, Feeling bad about themself, that they are a failure or have let others down, Trouble concentrating on things, and Moving or speaking slowly, or being fidgety or restless PHQ-9 Score: 19 * Nancy Sam APRN-COURTESY CLERK - 09/13/2023 8:50 AM EDT Subjective History of Present Illness Chief Complaint Patient presents with Anxiety Depression Sleep Problem Fatigue Weight Gain Yusra Fuentes is a 28 year old female here wanting labs done and to restart medication for ANX and DEP (previously on venlafaxine 225 mg daily in 2022) She is going to counseling for her anxiety. She does c/o fatigue, trouble sleeping (some nights will sleep only 3-4 hours then taking naps t/o the day to get through the day) she has noted some weight gain since being off the wegovy (about 1 year) Her Mom has Hypothyroidism and she is concerned she has these symptoms. She has noticed change inhair texture, breakage. Anxiety: She has not noticed a decrease in symptomsSymptoms present include: .Feeling nervous, anxious, or on edge, Not being able to stop or control worrying, Worrying too much about different things, Trouble relaxing, Being so restless that it's hard to sit still, Becoming easily annoyed or irritable, and Feeling afraid as if something awful might happen DAVION Score: 14 Depression: Symptoms present include: Little Interest or Pleasure in doing things, Feeling down, depressed, or hopeless, Trouble Falling asleep, staying asleep, or sleeping too much, Feeling tired orhaving little energy, Poor Appetite or Overeating, Feeling bad about themself, that they are a failure or have let others down, Trouble concentrating on things, and Moving or speaking slowly, or being fidgety or restless PHQ-9 Score: 19 Objective Review of Systems Constitutional: Positive for fatigue. Negative for activity change. Musculoskeletal: Negative for arthralgias and myalgias. Psychiatric/Behavioral: Positive for dysphoric mood and sleep disturbance. The patient is nervous/anxious. Psych Review of Symptoms: Depressive Symptoms: Fatigue. Additional findings of pertinent systems reviewd as noted above in HPI Vitals: Blood pressure 112/78, pulse 96, temperature 97.9 F (36.6 C), temperature source Temporal, height 1.626 m (5' 4), weight 108.2 kg (238 lb 9.6 oz), SpO2 96%. Wt Readings from Last 3 Encounters: 09/13/23 108.2 kg (238 lb 9.6 oz) 02/25/23 102.1 kg (225 lb) 05/22/22 95.9 kg (211 lb 6.4 oz) Physical Exam Vitals and nursing note reviewed. Constitutional: General: She is not in acute distress. Appearance: Normal appearance. She is well-developed and well-groomed. She is morbidly obese. Neck: Thyroid: No thyromegaly. Vascular: No carotid bruit. Cardiovascular: Rate and Rhythm: Normal rate and regular rhythm. No extrasystoles are present. Heart sounds: Normal heart sounds. Pulmonary: Effort: Pulmonary effort is normal. Breath sounds: Normal breath sounds. Musculoskeletal: Cervical back: Normal range of motion and neck supple. Skin: General: Skin is warm and dry. Neurological: Mental Status: She is alert and oriented to person, place, and time. Psychiatric: Attention and Perception: Attention normal. Mood and Affect: Affect normal. Mood is anxious. Mood is not depressed. Speech: Speech normal. Behavior: Behavior is cooperative. Thought Content: Thought content normal. Thought content does not include homicidal or suicidal ideation. Comments: GAD7=14, PHQ9=19 Neurological Exam Mental Status Alert. Oriented to person, place, and time. Speech is normal. Assessment and Plan 1. Depression, unspecified depression type Will restart medication at this time. Pt interested in trial of bupropion. - TSH W/FT4 REFLEX; Future - buPROPion 75 MG tablet; Take 1 tablet by mouth 2 times daily. Dispense: 60 tablet; Refill: 0 2. Other fatigue - CBC,PLATELETS; Future - COMPREHENSIVE METABOLIC PANEL; Future - LIPID PANEL W CALCULATED LDL; Future - TSH W/FT4 REFLEX; Future - VITAMIN D (25-HYDROXY,TOTAL); Future - VITAMIN B12; Future - SEDIMENTATION RATE, AUTOMATED; Future - C REACTIVE PROTEIN; Future 3. Anxiety disorder, unspecified type Discussed bupropion effective for depression, not as much for anxiety. Would like to try and see how she does. She is in counseling for this as well. - TSH W/FT4 REFLEX; Future - buPROPion 75 MG tablet; Take 1 tablet by mouth 2 times daily. Dispense: 60 tablet; Refill: 0 4. Insomnia, unspecified type Has tried melatonin OTC w/o benefit. 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 - TSH W/FT4 REFLEX; Future 5. BMI 40.0-44.9, adult - LIPID PANEL W CALCULATED LDL; Future - TSH W/FT4 REFLEX; Future 6. Binge eating - buPROPion 75 MG tablet; Take 1 tablet by mouth 2 times daily. Dispense: 60 tablet; Refill: 0 Return to Clinic in 1 month for follow up Lab review Dep/Anx documented in this encounterC[facility] History of Present illness Narrative* Kamlesh Meehan PA-C - 06/01/2023 3:50 PM EDT [facility] NOTE: Name: Yusra Fuentes, 28 y.o. CSN:[id number] PCP: LISETTE Rangel ALL: Allergies Allergen Reactions Amoxicillin Hives Mushroom Hives Tetanus Toxoid, Adsorbed Unknown History: Chief Complaint: URI (Sore throat, fatigue, ear pain, congestion. Pt has been sick for about 3 weeks.) Encounter Date: 06/01/2023 16:04hrs HPI: The history was obtained from the patient. Yusra is a 28 y.o. female, who presents with a chief complaint of URI (Sore throat, fatigue, ear pain, congestion. Pt has been sick for about 3 weeks.) Has been using Mucinex with minimal improvement, denies any visual disturbance, denies any hearing disturbance but recently in the last 48 hours she has had progressive left ear pain that radiates down into the left neck. She has moderate intermittent sore throat pain as well which she is found some benefit with buat-kha-vmeasjc meds with nothing lingering or lasting. PMHx: Past Medical History: Diagnosis Date Binge eating Depression Hypertension Current Outpatient Medications Medication Sig Dispense Refill azithromycin (Zithromax) 250 mg tablet Take 2 tablets (500 mg) on Day 1, followed by 1 tablet (250 mg) once daily on Days 2 through 5. 6 tablet 0 fexofenadine (Dorota) 180 mg tablet Take 1 tablet (180 mg) by mouth once daily. 30 tablet 0 pseudoephedrine (Sudafed) 30 mg tablet Take 1 tablet (30 mg) by mouth every 6 hours if needed for congestion. 30 tablet 0 No current facility-administered medications for this visit. PMSx: No past surgical history on file. Fam Hx: No family history on file. SOC. Hx: Social History Socioeconomic History Marital status: Spouse name: Not on file Number of children: Not on file Years of education: Not on file Highest education level: Not on file Occupational History Not on file Tobacco Use Smoking status: Never Smokeless tobacco: Never Substance and Sexual Activity Alcohol use: Not Currently Drug use: Never Sexual activity: Not Currently Other Topics Concern Not on file Social History Narrative Not on file Social Determinants of Health Financial Resource Strain: Not on file Food Insecurity: Not on file Transportation Needs: Not on file Physical Activity: Not on file Stress: Not on file Social Connections: Not on file Intimate Partner Violence: Not on file Housing Stability: Not on file Vitals: 06/01/23 1554 BP: 131/90 Pulse: 84 Resp: 16 Temp: 36.9 C (98.4 F) SpO2: 96% 104 kg (230 lb) Physical Exam Constitutional: Appearance: Normal appearance. She is normal weight. HENT: Head: Normocephalic and atraumatic. Right Ear: Hearing, tympanic membrane, ear canal and external ear normal. No hemotympanum. Tympanicmembrane is not injected, erythematous, retracted or bulging. Left Ear: Hearing, tympanic membrane, ear canal and external ear normal. No hemotympanum. Tympanic membrane is not injected, perforated, erythematous, retracted or bulging. Nose: Congestion present. Mouth/Throat: Mouth: Mucous membranes are moist. No oral lesions. Dentition: No gum lesions. Tongue: No lesions. Pharynx: Uvula midline. Posterior oropharyngeal erythema present. No pharyngeal swelling, oropharyngeal exudate or uvula swelling. Tonsils: No tonsillar exudate or tonsillar abscesses. Eyes: Extraocular Movements: Extraocular movements intact. Cardiovascular: Rate and Rhythm: Normal rate and regular rhythm. Pulmonary: Effort: Pulmonary effort is normal. Breath sounds: Normal breath sounds. Abdominal: General: Abdomen is flat. Musculoskeletal: General: Normal range of motion. Cervical back: Normal range of motion and neck supple. Lymphadenopathy: Cervical: No cervical adenopathy. Skin: General: Skin is warm. Neurological: Mental Status: She is alert and oriented to person, place, and time. Psychiatric: Behavior: Behavior normal. LABORATORY @ RADIOLOGICAL IMAGING (if done): No results found for this or any previous visit (from the past 24 hour(s)). UC COURSE/MEDICAL DECISION MAKING: Yusra is a 28 y.o., who presents with a working diagnosis of 1. Eustachian tube dysfunction, left 2. Acute pharyngitis, unspecified etiology 3. Subacute rhinosinusitis with a differential to include: Influenza, parainfluenza, rhinovirus, adenovirus, metapneumovirus, coronavirus, COVID-19, postnasaldrip, strep pharyngitis, GERD, retropharyngeal abscess, tonsillitis, adenitis, seasonal allergies Eustachian tube is likely the cause of her ear pain, we discussed use of Dorota and nasal sprays to improve overall flow and improve decongestion, patient was encouraged to use warm liquids, given the persistence and lingering symptoms to begin Zithromax given allergy to PCN, discussed use of anti-inflammatory such as Tylenol or ibuprofen, she was agreeable plan discharge. Kamlesh Meehan PA-C Advanced Practice Provider [facility] documented in this encounterOhio[facility] Work Phone: [phone]) 637-934812-07-2023 History of Present illness Narrative* Rebeka Byrnes LPN - 02/25/2023 2:45 PM EST CAMPAIGN MARKETING MANAGER here for annual with pap. Last pap was about 3.5 yrs ago. Patient would like to have IUD removed. They are thinking about trying to conceive. * Karol Rosenthal MD - 02/25/2023 2:45 PM ESTAssociated Order(s): IUD REMOVAL Post-Procedure Diagnose(s): Encounter for IUD removal RON Fuentes is a 28 y.o. female who presents today for concerns including Annual Wet Primer Powder Blender Exam (Here for annual Wet Primer Powder Blender Exam. Desires and will like IUD removed). Does not do self breast awareness/exam No urinary symptoms nor pelvic pain reported at this time No other concerns reported at this time. LMP: Patient's last menstrual period was 02/03/2023 (approximate). No results found for: PAPSMEAR OB HISTORY: OB History Para Term AB Living 2 2 2 2 SAB IAB Ectopic Molar Multiple Live Births 2 # Outcome Date GA Lbr Ezequiel/2nd Weight Sex Delivery Anes PTL Lv 2 Term 01/12/19 39w0d M Vag-Spont JULIET 1 Term 04/20/15 38w0d M Vag-Spont JULIET HISTORY/ALLERGIES Allergies Allergen Reactions Tetanus Toxoid Amoxicillin Hives Mushroom Extract Complex Hives Mushrooms-Food Past Medical History: Diagnosis Date Essential hypertension, benign with Irregular heart rhythm with No past surgical history on file. Social History Tobacco Use Smoking status: Former Types: Cigars Quit date: 06/08/2021 Years since quittin.7 Smokeless tobacco: Never Tobacco comments: 2-3 times a week Vaping Use Vaping Use: Never used Substance Use Topics Alcohol use: Yes Comment: rare Drug use: No Family History Problem Relation Age of Onset Lipid Disorder Mother Hypertension Mother Mental Illness Mother depression Hypertension Father Heart Disease - Other Father Mental Illness Father depression Other - Specify Father alcohol/drug abuse Mental Illness Sister depression Other - Specify Sister asthma Mental Illness Paternal Grandmother depression Other - Specify Paternal Grandmother migraines Current Outpatient Medications: PARAGARD INTRAUTERINE COPPER, 1 Intra Uterine Device by Intrauterine route once. (Patient not taking: Reported on 02/25/2023), Disp: , Rfl: Semaglutide-Weight Management (Wegovy) 2.4 MG/0.75ML Solution Auto-injector, Inject 2.4 mg under the skin once a week., Disp: 3 mL, Rfl: 2 Venlafaxine 75 MG Cap SR 24HR capsule XR, Take 3 capsules by mouth daily., Disp: 270 capsule, Rfl: 1 ROS Review of Systems Constitutional: Negative. HENT: Negative. Eyes: Negative. Respiratory: Negative. Cardiovascular: Negative. Gastrointestinal: Negative. Genitourinary: Negative. Musculoskeletal: Negative. Skin: Negative. Neurological: Negative. Psychiatric/Behavioral: Negative. All other systems reviewed and are negative. EXAM BP 125/82 Pulse 75 Ht 5' 4 (1.626 m) Wt 225 lb (102.1 kg) BMI 38.62 kg/m Smoking Status Former Physical Exam Vitals and nursing note reviewed. Exam conducted with a office technology professor present. Constitutional: General: She is not in acute distress. Appearance: Normal appearance. She is obese. She is not ill-appearing. HENT: Head: Normocephalic and atraumatic. Cardiovascular: Rate and Rhythm: Normal rate and regular rhythm. Heart sounds: Normal heart sounds. Pulmonary: Effort: Pulmonary effort is normal. Breath sounds: Normal breath sounds. Chest: Chest wall: No mass. Breasts: Breasts are symmetrical. Right: Normal. Left: Normal. Abdominal: General: There is no distension. Palpations: Abdomen is soft. There is no mass. Tenderness: There is no abdominal tenderness. Genitourinary: General: Normal vulva. Exam position: Lithotomy position. Labia: Right: No rash, tenderness, lesion or injury. Left: No rash, tenderness, lesion or injury. Vagina: Normal. Cervix: Normal. Uterus: Normal. Comments: IUD string noted to e in place. Musculoskeletal: General: Normal range of motion. Cervical back: Normal range of motion. Lymphadenopathy: Upper Body: Right upper body: No axillary adenopathy. Left upper body: No axillary adenopathy. Skin: General: Skin is warm and dry. Neurological: General: No focal deficit present. Mental Status: She is alert and oriented to person, place, and time. Psychiatric: Mood and Affect: Mood normal. Behavior: Behavior normal. Diagnosis/Plan: Diagnoses and all orders for this visit: Well woman exam with routine gynecological exam - KAREN CYTOLOGY-DIABETES MANAGER, LIQUID BASED Encouraged annual Wet Primer Powder Blender Exams Encounter for screening for cervical cancer - KAREN CYTOLOGY-DIABETES MANAGER, LIQUID BASED We talked about the continuum of care in the screening of cervical cancer as per ASCCP guidelines. I shared with patient that the results will be back within a week and I will review them and releasethem to her on Mychart. If there are any abnormal results, she will hear from us and we will followthe algorithms set forth by the ASCCP guidelines. Encounter for breast cancer screening using non-mammogram modality CBE done today Did teaching on self breast awareness Encouraged monthly self breast exams and annual mammograms starting at age 40 IUD (intrauterine device) in place Comments: Inserted 3 years ago per patient Encounter for IUD removal IUD REMOVAL Date/Time: 02/25/2023 2:45 PM Performed by: Karol Rosenthal MD Authorized by: Karol Rosenthal MD Consent: The patient was given a verbal description of the intended procedure including the risks and benefits of the procedure. The patient was then able to provide written informed consent for the above procedure. The risks and benefits on the procedure were discussed. Procedure: Speculum was inserted and cervix was visualized. IUD strings were not visualized. Cyto brush was/were used to locate the IUD strings. Successful: yes The IUD was grasped and successfully removed. Were there complications: no IUD removal due to desire for fertility. IUD removal due to personal preference. Post-procedure: The patient tolerated the procedure well. The patient was advised to call for any fever, severe pain or heavy bleeding. She was advised to use over the counter analgesics as needed for mild to moderate pain. 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 Took covid this morning and was negative Sore Throat Sinus Pain Cough Patient presents with sinus congestion, productive cough, sore throat, left ear pain started 3-4 days ago. States left ear pain is worse and throbbing. Kept her awake at night. No recorded fevers. Taking [id number] medications. Negative home COVID19 test. No known exposures. History Allergies Allergen Reactions Tetanus Toxoid Amoxicillin Hives Mushroom Extract Complex Hives Mushrooms-Food Current Outpatient Medications Medication Sig PARAGARD INTRAUTERINE COPPER 1 Intra Uterine Device by Intrauterine route once. Semaglutide-Weight Management (Wegovy) 2.4 MG/0.75ML Solution Auto-injector Inject 2.4 mg under theskin once a week. venlafaxine 150 MG Cap SR 24HR capsule XR Take 1 capsule by mouth daily. Azithromycin (Zithromax Z-Calos) 250 MG tablet Take 2 tablets (500 mg) on Day 1, then 1 tablet (250 mg) daily on Days 2-5 Family History Problem Relation Age of Onset Lipid Disorder Mother Hypertension Mother Mental Illness Mother depression Hypertension Father Heart Disease - Other Father Mental Illness Father depression Other - Specify Father alcohol/drug abuse Mental Illness Sister depression Other - Specify Sister asthma Mental Illness Paternal Grandmother depression Other - Specify Paternal Grandmother migraines Past Medical History: Diagnosis Date Essential hypertension, benign with Irregular heart rhythm with No past surgical history on file. Social History Socioeconomic History Marital status: Spouse name: Not on file Number of children: Not on file Years of education: Not on file Highest education level: Not on file Occupational History Not on file Tobacco Use Smoking status: Former Types: Cigars Quit date: 06/08/2021 Years since quittin.8 Smokeless tobacco: Never Tobacco comments: 2-3 times a week Vaping Use Vaping Use: Never used Substance and Sexual Activity Alcohol use: Yes Comment: rare Drug use: No Sexual activity: Not on file Other Topics Concern Service Not Asked Blood Transfusions Not Asked Caffeine Concern Not Asked Occupational Exposure Not Asked Hobby Hazards Not Asked Sleep Concern Not Asked Stress Concern Not Asked Weight Concern Not Asked Special Diet Not Asked Back Care Not Asked Exercise Not Asked Bike Helmet Not Asked Seat Belt Not Asked Domestic Violence No Social History Narrative Not on file Social Determinants of Health Financial Resource Strain: Not on file Food Insecurity: Not on file Transportation Needs: Not on file Physical Activity: Not on file Stress: Not on file Social Connections: Not on file Intimate Partner Violence: Not on file Housing Stability: Not on file ROS Review of Systems 8 systems reviewed with patient, negative unless specifically mentioned in history of present illness PHYSICAL EXAM Visit Vitals BP 132/89 (BP Location: Left arm, BP Position: Sitting) Pulse 111 Temp 98.5 F (36.9 C) (Temporal) Resp 18 Ht 1.626 m (5' 4) Wt 97.8 kg (215 lb 11.2 oz) SpO2 97% BMI 37.02 kg/m Physical Exam Vitals and nursing note reviewed. Constitutional: General: She is not in acute distress. Appearance: Normal appearance. She is well-developed. She is ill-appearing. She is not diaphoretic. HENT: Head: Normocephalic. Right Ear: Tympanic membrane normal. Left Ear: Tympanic membrane is erythematous and bulging. Nose: Congestion present. Mouth/Throat: Mouth: Mucous membranes are moist. Pharynx: Oropharynx is clear. Eyes: Pupils: Pupils are equal, round, and reactive to light. Cardiovascular: Rate and Rhythm: Regular rhythm. Tachycardia present. Heart sounds: Normal heart sounds. Pulmonary: Effort: Pulmonary effort is normal. No respiratory distress. Breath sounds: Normal breath sounds. Abdominal: General: There is no distension. Musculoskeletal: Cervical back: Neck supple. Lymphadenopathy: Cervical: Cervical adenopathy present. Skin: General: Skin is warm and dry. Capillary Refill: Capillary refill takes less than 2 seconds. Neurological: General: No focal deficit present. Mental Status: She is alert and oriented to person, place, and time. Psychiatric: Mood and Affect: Mood normal. Behavior: Behavior normal. RESULTS No results found for this or any previous visit (from the past 1 hour(s)). ASSESSMENT/PLAN 1. Left acute otitis media 2. Acute upper respiratory infection Orders Placed This Encounter Azithromycin (Zithromax Z-Calso) 250 MG tablet Left AOM and acute URI treated with Zpak. Continue OTC meds. Work note given. If symptoms worsen patient was advised to follow up in our office, primary care provider or the Emergency Dept. Benefits, Risks, Contraindications, and Complications of recommended treatments were explained. The patient understands and agrees to proceed with plan. LISETTE Graham 04/26/2022 [facility] History of Present illness Narrative* Dominga Ren LPN - 11/28/2021 8:30 AM EDT Here for a 3 month fu. Obesity: She has lost weight in past month 14 lbs . She is not following the recommended dietary plan, and is not exercising regularly. She is taking medication to help with weight loss ( Wegovy ). She admits to having medication side effects. Has had constipation when increased to 1.7 mg dose. ANXIETY/DEPRESSION- Patient her for anxiety/depression. Patient current medications Venlafaxine 150 mg daily taking as prescribed. Denies side effects no.Substance abuse no. DAVION-7 Score today- 1 previous score 2 PHQ-9 Score today- 6 previous score 6 * LISETTE Elder - 11/28/2021 8:30 AM EDT History of Present Illness Chief Complaint Patient presents with Obesity Weight Management Session Anxiety Depression Here for a 3 month fu. Obesity: She has lost weight in past 3 month 14 lbs on the Wegovy 1.7 mg. Has had constipation whenincreased to 1.7 mg dose, relieved with OTC stool softener. ANXIETY/DEPRESSION- Patient her for anxiety/depression. Patient current medications Venlafaxine 150 mg daily taking as prescribed. Denies side effects no.Substance abuse no. DAVION-7 Score today- 1 previous score 2 PHQ-9 Score today- 6 previous score 6 Review of Systems Vitals: Blood pressure 126/70, pulse 105, temperature 96.9 F (36.1 C), temperature source Temporal,height 1.626 m (5' 4), weight 106.1 kg (234 lb), SpO2 97 %. Physical Exam Vitals and nursing note reviewed. Constitutional: General: She is not in acute distress. Appearance: Normal appearance. She is well-developed and well-groomed. She is morbidly obese. Cardiovascular: Rate and Rhythm: Regular rhythm. Tachycardia present. Comments: HR 105, regular Pulmonary: Effort: Pulmonary effort is normal. Breath sounds: Normal breath sounds. Skin: General: Skin is warm and dry. Neurological: Mental Status: She is alert and oriented to person, place, and time. Psychiatric: Attention and Perception: Attention normal. Mood and Affect: Mood normal. Mood is not anxious or depressed. Speech: Speech normal. Behavior: Behavior is not slowed. Behavior is cooperative. Thought Content: Thought content normal. Thought content does not include homicidal or suicidal ideation. Comments: DAVION-7 Score today- 1 previous score 2 PHQ-9 Score today- 6 previous score 6 Neurological Exam Mental Status Alert. Oriented to person, place, and time. Speech is normal. Assessment and Plan 1. Adult BMI 40.0-44.9 kg/sq m Improved as continues to lose weight with the Wegovy. Would like to continue current 1.7 mg dose, she will notify office in about 3 weeks if she is going to continue on 1.7mg or increase to the 2.4 mg (may need new PA at that time) - Semaglutide-Weight Management ([facility]) 1.7 MG/0.75ML Solution Auto-injector; Inject 1.7 mg under the skin once a week. Dispense: 3 mL; Refill: 0 2. Anxiety She had forgotten to take x several days and had w/d s/e of irritability, Discussed tapering down on down to wean when ready. Stable on current medication regimen. Will continue as prescribed. Questions answered. - venlafaxine 150 MG Cap SR 24HR capsule XR; Take 1 capsule by mouth daily. Dispense: 90 capsule; Refill: 0 3. Depression, unspecified depression type Improved on current medication regimen, will continue at current dose and follow up as directed. Questions answered. - venlafaxine 150 MG Cap SR 24HR capsule XR; Take 1 capsule by mouth daily. Dispense: 90 capsule; Refill: 0 Return to clinic in 6 months for routine follow up Dep/Anx MWL (on Wegovy) documented in [facility] History of Present illness Narrative* Dominga Ren LPN - 09/08/2021 3:10 PM EDT Here for a 3 month fu for MWL with Wegovy. Obesity: She has lost weight in past month 10lbs . She is not following the recommended dietary plan, and is not exercising regularly. She is taking medication to help with weight loss ( Wegovy ). She denies having medication side effects. * LISETTE Elder - 09/08/2021 3:10 PM EDT History of Present Illness Chief Complaint Patient presents with Obesity Weight Management Session Here for a 3 month fu for MWL with Wegovy. Previously did phentermine x 2 month (01/13/21-02/17/21)and one month Vyvanse 03/18/2021) which was ineffective after the first week. Started on Wegovy in late May at the 0.25mg dose then increased to .5 mg dose and is now ready totitrate up from there Obesity: She has lost weight in past month 10 lbs . She is not following the recommended dietary plan but is aware and mindful of eating less d/t feeling full faster and longer. She is not exercisingregularly. She is taking medication to help with weight loss ( Wegovy ). She denies having medication side effects. She is needing a refill sent to mail order for her venlafaxine as the automated system has things messed up. Review of Systems Constitutional: Positive for appetite change. Negative for activity change, fatigue and unexpected weight change (down 10 lbs with wegovy). Gastrointestinal: Negative for abdominal pain and nausea. Psychiatric/Behavioral: Negative for dysphoric mood (improved on venlafaxine). The patient is not nervous/anxious (doing well on venlafaxine). Vitals: Blood pressure 114/62, pulse 84, temperature 97.3 F (36.3 C), temperature source Temporal, weight 112.5 kg (248 lb), SpO2 97 %. Wt Readings from Last 3 Encounters: 09/08/21 112.5 kg (248 lb) 06/16/21 117 kg (258 lb) 03/18/21 114.7 kg (252 lb 12.8 oz) Physical Exam Vitals and nursing note reviewed. Constitutional: Appearance: Normal appearance. She is well-developed and well-groomed. She is morbidly obese. Cardiovascular: Rate and Rhythm: Normal rate. Pulmonary: Effort: Pulmonary effort is normal. Neurological: Mental Status: She is alert. Psychiatric: Attention and Perception: Attention normal. Mood and Affect: Mood and affect normal. Speech: Speech normal. Behavior: Behavior normal. Behavior is cooperative. Thought Content: Thought content normal. Comments: 90-day supply sent to mail order, will rescreen at 3 mo FU. Neurological Exam Mental Status Alert. Speech is normal. Assessment and Plan 1. Adult BMI 40.0-44.9 kg/sq m Doing well, tolerating medication. Weight down 10 lbs, will continue. Will plan to increase dose every 4 weeks over next 3 mo and follow up at that time. If at anytime is not tolerating the current months dose she will notify office. - Semaglutide-Weight Management (Wegovy) 1 MG/0.5ML Solution Auto-injector; Inject 1 mg under the skin once a week. Dispense: 2 mL; Refill: 0 - Semaglutide-Weight Management (Wegovy) 1.7 MG/0.75ML Solution Auto-injector; Inject 1.7 mg under the skin once a week. Dispense: 3 mL; Refill: 0 - Semaglutide-Weight Management (Wegovy) 2.4 MG/0.75ML Solution Auto-injector; Inject 2.4 mg under the skin once a week. Dispense: 30 mL; Refill: 0 Return to clinic in 3 months for follow up MWL (Wegovy) Dep/Anxiety (refill venlafaxine) documented in this encounterC[facility] History of Present illness Narrative* Dominga Ren LPN - 06/16/2021 3:50 PM EDT Here for a 3 month fu. Wants to discuss MWL. Too soon to restart Adipex. Last dispensed 02/17/2021. Obesity: She is interested in getting help to lose weight. She has not lost weight in past month. She is not following a reduced caloric diet, binge eats at night and is not exercising regularly. Workup for obesity done in past includes: none Has had a URI for several days. Tested neg for COVID today. Having middle back pain that radiates down to right butt cheek. Eczema on hands. Asking for RX for steroid cream. Binge eating: only took Vyvanse 70 mg for 30 days due to ineffectiveness. ANXIETY/DEPRESSION- Patient her for anxiety/depression. Patient current medications Venlafaxine 150 mg daily and takingas prescribed. Denies side effects none. DAVION-7 Score today- 6 previous score was 4 taken 5 months ago. PHQ-9 Score today- 2 previous score was 0 taken 5 months ago. * LISETTE Elder - 06/16/2021 3:50 PM EDT Images from the original note were not included. History of Present Illness Chief Complaint Patient presents with Anxiety Depression Eating Disorder Binge eating Nasal Congestion Back Pain middle Dry Skin Weight Management Session Wants to restart Adipex Obesity Yusra Fuentes is a 26 year old female here today for 3 mo follow up for binge eating, depression/anxiety. She would also like to discuss MWL options (Vyvanse unhelpful to her after one month, last fill of phentermine was 02/17/2022 making her eligible for consideration again in late August), URI symptoms, right side/middle back pain that radiate to right buttock, and refill on medication to treat eczema on hands. Obesity: She is interested in getting help to lose weight. She has not lost weight in past month. She is not following a reduced caloric diet, binge eats at night and is not exercising regularly. [place] to restart Adipex. Last dispensed 02/17/2021.Binge eating: only took Vyvanse 70 mg for 30 daysdue to ineffectiveness. Today we discussed the GLP-1 class as well as contrave and tompiramate. Will send in RX for wegovy to see if we can get it covered. Discussed dosing of this medication. Has had a URI for several days. Tested neg for COVID today. States entire family has this head cold she mainly has frontal sinus congestion, secretions are thin and clear now. Using homeopathic treatments at home including tea's, honey, and humidifier. Having right side middle back pain that radiates down to right butt cheek. Made worse with certain movements. Taking OTC motrin w/o benefit. Eczema on hands. Asking for RX for steroid cream. ANXIETY/DEPRESSION- Patient her for anxiety/depression. Patient current medications Venlafaxine 150 mg daily and takingas prescribed. Denies side effects none. Past Medical History: Diagnosis Date Essential hypertension, benign with Irregular heart rhythm with Outpatient Medications Prior to Visit Medication Sig Dispense Refill PARAGARD INTRAUTERINE COPPER 1 Device by Intrauterine route once. venlafaxine 150 MG Cap SR 24HR capsule XR Take 1 capsule by mouth daily. 90 capsule 0 Lisdexamfetamine Dimesylate (Vyvanse) 70 MG capsule Take 1 capsule by mouth daily every morning. 30capsule 0 No facility-administered medications prior to visit. Allergies Allergen Reactions Tetanus Toxoid Amoxicillin Hives Mushroom Extract Complex Hives Mushrooms-Food Review of Systems HENT: Positive for congestion, rhinorrhea and sinus pressure. Respiratory: Negative for cough and wheezing. Musculoskeletal: Positive for back pain. Skin: Positive for rash (eczema flare up on hands). Psychiatric/Behavioral: Negative for dysphoric mood. The patient is not nervous/anxious. Depression/anxiety currently controlled with venlafaxine Vitals: Blood pressure 126/72, pulse 94, temperature 97.6 F (36.4 C), temperature source Temporal, weight 117 kg (258 lb), SpO2 96 %. Wt Readings from Last 3 Encounters: 06/16/21 117 kg (258 lb) 03/18/21 114.7 kg (252 lb 12.8 oz) 02/17/21 114.8 kg (253 lb) Physical Exam Vitals and nursing note reviewed. Constitutional: General: She is not in acute distress. Appearance: She is well-developed. Neck: Thyroid: No thyromegaly. Cardiovascular: Rate and Rhythm: Normal rate and regular rhythm. Pulmonary: Effort: Pulmonary effort is normal. Musculoskeletal: Cervical back: Normal range of motion and neck supple. Skin: General: Skin is warm and dry. Neurological: Mental Status: She is alert and oriented to person, place, and time. Psychiatric: Mood and Affect: Mood is not anxious or depressed. Speech: Speech normal. Behavior: Behavior is not slowed. Thought Content: Thought content normal. Thought content does not include homicidal or suicidal ideation. Comments: DAVION-7 Score today- 6 previous score was 4 PHQ-9 Score today- 2 previous score was 0 Neurological Exam Mental Status Alert. Oriented to person, place, and time. Speech is normal. Media Information Assessment and Plan 1. Anxiety Stable on current medication regimen. Will continue as prescribed. Questions answered. - venlafaxine 150 MG Cap SR 24HR capsule XR; Take 1 capsule by mouth daily. Dispense: 90 capsule; Refill: 1 2. Depression, unspecified depression type Stable on current medication regimen. Will continue as prescribed. Questions answered. - venlafaxine 150 MG Cap SR 24HR capsule XR; Take 1 capsule by mouth daily. Dispense: 90 capsule; Refill: 1 3. Adult BMI 40.0-44.9 kg/sq m See note above about options discussed. Wegovy does require PA and we will submit for this today. Discussed dose titration with pt and advised if we get approved to obtain savings card on line and follow up in office in 3 mo. - Semaglutide-Weight Management (Wegovy) 0.25 MG/0.5ML Solution Auto-injector; Inject 0.25 mg underthe skin once a week. Dispense: 2 mL; Refill: 0 4. Acute right-sided low back pain, unspecified whether sciatica present - tiZANidine 4 MG tablet; Take 1 tablet by mouth 3 times daily. Dispense: 60 tablet; Refill: 1 - diclofenac EC [address] tablet; Take 1 tablet by mouth 2 times daily. Dispense: 60 tablet; Refill: 0 5. Eczema, unspecified type - clobetasol 0.05 % Cream; Apply thin layer twice daily as directed x 14 days, may repeat with eachflare up. Dispense: 30 g; Refill: 1 Return to clinic in 3 months for follow up MWL (if on wegovy, or will restart phentermine) documented in [facility] encounterC[facility]* Diagnosis Anxiety- Primary Anxiety state, unspecified Depression, unspecified depression type Adult BMI 40.0-44.9 kg/sq m Body Mass Index 40.0-44.9, adult Acute right-sided low back pain, unspecified whether sciatica present Eczema, unspecified type [facility] Diagnosis Adult BMI 40.0-44.9 kg/sq m- Primary Body Mass Index 40.0-44.9, adult Anxiety Anxiety state, unspecified Depression, unspecified depression type [facility]* Diagnosis Adult BMI 40.0-44.9 kg/sq m Body Mass Index 40.0-44.9, adult Anxiety Anxiety state, unspecified Depression, unspecified depression type [facility] Diagnosis Left acute otitis media- Primary Unspecified otitis media Acute upper respiratory infection Acute upper respiratory infections of unspecified site [facility]* Diagnosis Well woman exam with routine gynecological exam- Primary Routine gynecological examination Encounter for screening for cervical cancer Encounter for breast cancer screening using non-mammogram modality IUD (intrauterine device) in place Presence of intrauterine contraceptive device Encounter for IUD removal Encounter for removal of intrauterine contraceptive device [facility]* Diagnosis Eustachian tube dysfunction, left- Primary Acute pharyngitis, unspecified etiology Subacute rhinosinusitis documented [facility] Work Phone: Evaluation note* Diagnosis Depression, unspecified depression type- Primary Other fatigue Anxiety disorder, unspecified type Insomnia, unspecified type BMI 40.0-44.9, adult Body Mass Index 40.0-44.9, adult Binge eating Anorexia nervosa [facility]* Diagnosis Anxiety and depression- Primary Dysthymic disorder Elevated LDL cholesterol level Pure hypercholesterolemia Obesity, Class III, BMI 40-49.9 (morbid obesity) Morbid obesity Constipation, unspecified constipation type [facility]* Diagnosis Anxiety and depression- Primary Dysthymic disorder Elevated LDL cholesterol level Pure hypercholesterolemia Obesity, Class III, BMI 40-49.9 (morbid obesity) Morbid obesity Constipation, unspecified constipation type Lower abdominal pain- Primary Abdominal pain, other specified site First trimester Fever, unspecified fever cause Cyst of left ovary Other and unspecified ovarian cyst [facility]* Attachments The following attachments cannot be sent through Care Everywhere. * Otitis Media ([place]) documented in this encounterC[facility] HospitalProgress note Author Lara Cespedes [facility] Note Date/Time June 19, 2024 2:[address] [place] [address] Medical Records Department [address] [place] [id number] OB Triage Progress Note 06/19/24 1437 MR#: [id number] Acct: [id number] Name: YUSRA FUENTES Rep #:[id number] : 1995 29 From: Lara Cespedes CNM PCP: KULDIP Marroquin Status:REG CL I Y DOS: Location: [place] [address] Progress Notes Date of Service: 06/19/24 Progress Note: Patient presents for triage evaluation secondary to NST after BPP 08/27 FHT: 135 Moderate variability reactive no decelerations category I tracing [place]: mild-moderate Contractions Assessment and plan: cervical exam done and 1/thick/posterior per nursing, encourage oral hydration, Reactive NST, reassuring maternal and status patient discharged to home to follow-up in office or return to if contractions worsen. See problem list details for additional plan information. Charges/Coding Multi Select Codes Urinary/Genital Urinary/Genital CPT Codes: 91290-31 non-stress test Interp Assessment & Plan (1) Gestational diabetes: COMMENT: nutrition consult, glucose testing fasting & 2 hr PP (2) Abnormal glucose level: COMMENT: 3 HR GTT-failed. (3) 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, antepartum: COMMENT: Pt has not had any clotting event that requires anticoagulation during this . She had a suboptimal management for PE so I do not think she had PE. daily ASA, lovenox X 6 wk pp If c section (4) Obesity affecting : QUALIFIERS: Trimester: second trimester Obesity type affecting : unspecified obesity Qualified Code(s): O99.212 - Obesity complicating , second trimester COMMENT: HgB A1C ordered, growth US 32, 36 weeks, bpp weely 34 weeks on (5) Request for sterilization: COMMENT: After this (6) Former smoker: COMMENT: Stopped 2 years ago (7) Supervision of high-risk : QUALIFIERS: Trimester: second trimester Qualified Code(s): O09.92- Supervision of high risk , unspecified, second trimester COMMENT: PRR, , AUGUST 07/20/24, PC: Jillian, : Itz (8) : QUALIFIERS: Weeks of gestation: 34 weeks Qualified Code(s): Z3A.34 - 34 weeks gestation of COMMENT: Carrier neg. , NIPT low risk. Nl anatomy (9) H/O pre-eclampsia in prior , currently : COMMENT: with first , Pre-e baseline labs ordered-asa at 12 weeks (10) Ovarian cyst: QUALIFIERS: Laterality: unspecified laterality Qualified Code(s):N83.209 - Unspecified ovarian cyst, unspecified side COMMENT: on L ovary + Fibroids (11) Anxiety and depression: (12) Seasonal allergies: (13) High cholesterol: COMMENT: Stopped Statin in October - controlling with diet & exercise (14) NST (non-stress test) reactive: COMMENT: had BPP 08/27. now 10/29 d/c home 06/19/24 1441 <Electronically signed by Lara tyler CNM> Date _ Lara Cespedes CNM Cosigner Signature (if applicable): Date CC: ARTEM Cespedes; CAMPAIGN MARKETING MANAGER-C Nancy Sam ~ Signed [facility] Work Phone: Reason for referral (narrative)No reason for referral information availableWUniversity Hospitals [facility] Work Phone: Summary Purpose Family History No Family History Records Found Relationship Condition Age at Onset Recorded Date/T stephani mother Cardiac disease Unknown Hypothyroidism Unknown grandmother Malignant neoplasm of breast Unknown Advance Directives No Advanced Directives Records Found Advance Directive Response Recorded Date/ Time Living Will No December 29 10:08am Power of [place] No December 30, 2023 10:08am Advance Directive Response Recorded Date/ Time Living Will No December 29 10:08am Do you have a Healthcare Power of [place]? No December 30, 2023 10:08am Advance Directive Response Recorded Date/ Time Living Will No December 29 10:08am Do you have a Healthcare Power of [place]? No December 30, 2023 10:08am Do you have a Healthcare Power of [place]? No July 13, 2024 7:31am History of Present Illness * Nancy Sam APRN-CNP - 06/24/2018 4:23 PM EDT Pt left message today stating she stopped her escitalopram d/t newly . She will follow up with her OBGYN documented in this encounter Assessments Diagnosis , unspecified gestational age- Primary Reason for Referral Specialty Diagnoses / Procedures Referred By Ernst t Referred To Contact Diagnoses Adult BMI 40.0-44.9 kg/sq m Nancy Sam APRN-CNP [address] [place] [address] Referral ID Status Reason Start Date Expiration Date V isits Requested Visits Authorized [id number] Pending Review 1 1 Referral ID Status Reason Start Date Expiration Date Visits Re quested Visits Authorized [id number] Closed 1 1 Referral ID Status Reason Start Date Expiration Date Visits Re quested Visits Authorized [id number] Closed 1 1 Referral ID Status Reason Start Date Expiration Date V isits Requested Visits Authorized [id number] Pending Review 1 1 Specialty Diagnoses / Procedures Referred By Contac t Referred To Contact Procedures US OB TRANSVAGINAL/CERVICAL LENGTH Marker, Robyn Fox, DO [address] [place] [address] Referral ID Status Reason Start Date Expiration Date V isits Requested Visits Authorized [id number] New Request 11/25/2023 12/19/2024 1 1 Specialty Diagnoses / Procedures Referred By Contac t Referred To Contact Diagnoses Lower abdominal pain Procedures US PELVIC W TRANSVAGINAL Marker, Robyn Fox, DO [address] [place] [address] Referral ID Status Reason Start Date Expiration Date V isits Requested Visits Authorized [id number] New Request 11/25/2023 12/19/2024 1 1 Chief Complaint and Reason for Visit Chief Complaint Admit Date 18 WK OB February 28, 2024 1 1:54am CERVICAL LENGTH March 10, 2024 12:12pm 22 WK OB March 20, 2024 8:48am 26 WK OB April 17, 2024 8 :23am SCREEN FOR GESTATIONAL DB April 25, 2024 6:44am 30 WK OB May 15, 2024 12:50pm 32 WEEK GROWTH May 23, 2024 9:4 8am 32 WK OB May 29, 2024 3:0 3pm Reason for Visit Admit Date Anxiety and depression February 27 11:54am Former smoker February 28, 2024 1 1:54am H/O pre-eclampsia in prior , cu rrently February 28, 2024 11:54am 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, antepartum February 28, 2024 11:54am High cholesterol February 28, 2024 1 1:54am Obesity affecting February 11:54am Ovarian cyst February 28, 2024 1 1:54am February 28, 2024 1 1:54am Request for sterilization February 28, 2024 11:54am Seasonal allergies February 28, 2024 1 1:54am Supervision of high-risk Decem 2023 11:54am Hypothyroidism February 28, 2024 1 1:54am Anxiety and depression March 20 8:48am Former smoker March 20, 2024 8:48am H/O pre-eclampsia in prior , cu rrently March 20, 2024 8:48am 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, antepartum March 20, 2024 8:48am High cholesterol March 20, 2024 8:48am Obesity affecting February 8:48am Ovarian cyst March 20, 2024 8:48am March 20, 2024 8:48am Request for sterilization March 20, 2024 8:48am Seasonal allergies March 20, 2024 8:48am Supervision of high-risk Decem 2023 8:48am Hypothyroidism March 20, 2024 8:48am Anxiety and depression April 17 8:23am Former smoker April 17, 2024 8 :23am H/O pre-eclampsia in prior , cu rrently April 17, 2024 8:23am 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, antepartum April 17, 2024 8:23am High cholesterol April 17, 2024 8 :23am Obesity affecting March 8:23am Ovarian cyst April 17, 2024 8 :23am April 17, 2024 8 :23am Request for sterilization April 17, 2024 8:23am Seasonal allergies April 17, 2024 8 :23am Supervision of high-risk Janua 2024 8:23am Abnormal glucose level May 15 12:50pm Anxiety and depression May 15 12:50pm Former smoker May 15, 2024 12:50pm Gestational diabetes May 15, 2024 12:50pm H/O pre-eclampsia in prior , cu rrently May 15, 2024 12:50pm 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, antepartum May 15, 2024 12:50pm High cholesterol May 15, 2024 12:50pm Obesity affecting April 12:50pm Ovarian cyst May 15, 2024 12:50pm May 15, 2024 12:50pm Request for sterilization May 15, 2024 12:50pm Seasonal allergies May 15, 2024 12:50pm Supervision of high-risk Febru elías 2024 12:50pm Abnormal glucose level May 29, 2024 3:03pm Anxiety and depression May 29, 2024 3:03pm Former smoker May 29, 2024 3:0 3pm Gestational diabetes May 29, 2024 3: 03pm H/O pre-eclampsia in prior , cu rrently May 29, 2024 3:03pm 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, antepartum May 29, 2024 3:03pm High cholesterol May 29, 2024 3:0 3pm Obesity affecting May 29, 2024 3:03pm Ovarian cyst May 29, 2024 3:0 3pm May 29, 2024 3:0 3pm Request for sterilization May 29 3:03pm Seasonal allergies May 29, 2024 3:0 3pm Supervision of high-risk May 29, 2024 3:03pm Chief Complaint Admit Date 18 WK OB February 28, 2024 1 1:54am CERVICAL LENGTH March 10, 2024 12:12pm 22 WK OB March 20, 2024 8:48am 26 WK OB April 17, 2024 8 :23am SCREEN FOR GESTATIONAL DB April 25, 2024 6:44am 30 WK OB May 15, 2024 12:50pm 32 WEEK GROWTH May 23, 2024 9:4 8am 32 WK OB May 29, 2024 3:0 3pm 24 WK OB June 12, 2024 9:0 7am 34 WEEK WELL BEING June 12 11:58am Reason for Visit Admit Date Anxiety and depression February 27 11:54am Former smoker February 28, 2024 1 1:54am H/O pre-eclampsia in prior , cu rrently February 28, 2024 11:54am 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, antepartum February 28, 2024 11:54am High cholesterol February 28, 2024 1 1:54am Obesity affecting February 11:54am Ovarian cyst February 28, 2024 1 1:54am February 28, 2024 1 1:54am Request for sterilization February 28, 2024 11:54am Seasonal allergies February 28, 2024 1 1:54am Supervision of high-risk Decem 2023 11:54am Hypothyroidism February 28, 2024 1 1:54am Anxiety and depression March 20 8:48am Former smoker March 20, 2024 8:48am H/O pre-eclampsia in prior , cu rrently March 20, 2024 8:48am 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, antepartum March 20, 2024 8:48am High cholesterol March 20, 2024 8:48am Obesity affecting February 8:48am Ovarian cyst March 20, 2024 8:48am March 20, 2024 8:48am Request for sterilization March 20, 2024 8:48am Seasonal allergies March 20, 2024 8:48am Supervision of high-risk Decem 2023 8:48am Hypothyroidism March 20, 2024 8:48am Anxiety and depression April 17 8:23am Former smoker April 17, 2024 8 :23am H/O pre-eclampsia in prior , cu rrently April 17, 2024 8:23am 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, antepartum April 17, 2024 8:23am High cholesterol April 17, 2024 8 :23am Obesity affecting March 8:23am Ovarian cyst April 17, 2024 8 :23am April 17, 2024 8 :23am Request for sterilization April 17, 2024 8:23am Seasonal allergies April 17, 2024 8 :23am Supervision of high-risk Janua 2024 8:23am Abnormal glucose level May 15 12:50pm Anxiety and depression May 15 12:50pm Former smoker May 15, 2024 12:50pm Gestational diabetes May 15, 2024 12:50pm H/O pre-eclampsia in prior , cu rrently May 15, 2024 12:50pm 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, antepartum May 15, 2024 12:50pm High cholesterol May 15, 2024 12:50pm Obesity affecting April 12:50pm Ovarian cyst May 15, 2024 12:50pm May 15, 2024 12:50pm Request for sterilization May 15, 2024 12:50pm Seasonal allergies May 15, 2024 12:50pm Supervision of high-risk Febru elías 2024 12:50pm Abnormal glucose level May 29, 2024 3:03pm Anxiety and depression May 29, 2024 3:03pm Former smoker May 29, 2024 3:0 3pm Gestational diabetes May 29, 2024 3: 03pm H/O pre-eclampsia in prior , cu rrently May 29, 2024 3:03pm 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, antepartum May 29, 2024 3:03pm High cholesterol May 29, 2024 3:0 3pm Obesity affecting May 29, 2024 3:03pm Ovarian cyst May 29, 2024 3:0 3pm May 29, 2024 3:0 3pm Request for sterilization May 29 3:03pm Seasonal allergies May 29, 2024 3:0 3pm Supervision of high-risk May 29, 2024 3:03pm Abnormal glucose level June 12, 2024 9:07am Anxiety and depression June 12, 2024 9:07am Former smoker June 12, 2024 9:0 7am Gestational diabetes June 12, 2024 9: 07am H/O pre-eclampsia in prior , cu rrently June 12, 2024 9:07am 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, antepartum June 12, 2024 9:07am High cholesterol June 12, 2024 9:0 7am Obesity affecting June 12, 2024 9:07am Ovarian cyst June 12, 2024 9:0 7am June 12, 2024 9:0 7am Request for sterilization June 12 9:07am Seasonal allergies June 12, 2024 9:0 7am Supervision of high-risk June 12, 2024 9:07am Chief Complaint Admit Date 18 WK OB February 28, 2024 1 1:54am CERVICAL LENGTH March 10, 2024 12:12pm 22 WK OB March 20, 2024 8:48am 26 WK OB April 17, 2024 8 :23am SCREEN FOR GESTATIONAL DB April 25, 2024 6:44am 30 WK OB May 15, 2024 12:50pm 32 WEEK GROWTH May 23, 2024 9:4 8am 32 WK OB May 29, 2024 3:0 3pm 24 WK OB June 12, 2024 9:0 7am 34 WEEK WELL BEING June 12 11:58am 35 WEEK WELL BEING/NST June 19, 2024 12:15pm 35 WEEK WELL BEING/NST June 19, 2024 2:37pm Reason for Visit Admit Date Anxiety and depression February 27 11:54am Former smoker February 28, 2024 1 1:54am H/O pre-eclampsia in prior , cu rrently February 28, 2024 11:54am 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, antepartum February 28, 2024 11:54am High cholesterol February 28, 2024 1 1:54am Obesity affecting February 11:54am Ovarian cyst February 28, 2024 1 1:54am February 28, 2024 1 1:54am Request for sterilization February 28, 2024 11:54am Seasonal allergies February 28, 2024 1 1:54am Supervision of high-risk Decem 2023 11:54am Hypothyroidism February 28, 2024 1 1:54am Anxiety and depression March 20 8:48am Former smoker March 20, 2024 8:48am H/O pre-eclampsia in prior , cu rrently March 20, 2024 8:48am 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, antepartum March 20, 2024 8:48am High cholesterol March 20, 2024 8:48am Obesity affecting February 8:48am Ovarian cyst March 20, 2024 8:48am March 20, 2024 8:48am Request for sterilization March 20, 2024 8:48am Seasonal allergies March 20, 2024 8:48am Supervision of high-risk Decem 2023 8:48am Hypothyroidism March 20, 2024 8:48am Anxiety and depression April 17 8:23am Former smoker April 17, 2024 8 :23am H/O pre-eclampsia in prior , cu rrently April 17, 2024 8:23am 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, antepartum April 17, 2024 8:23am High cholesterol April 17, 2024 8 :23am Obesity affecting March 8:23am Ovarian cyst April 17, 2024 8 :23am April 17, 2024 8 :23am Request for sterilization April 17, 2024 8:23am Seasonal allergies April 17, 2024 8 :23am Supervision of high-risk Janua ry 2024 8:23am Abnormal glucose level May 15 12:50pm Anxiety and depression May 15 12:50pm Former smoker May 15, 2024 12:50pm Gestational diabetes May 15, 2024 12:50pm H/O pre-eclampsia in prior , cu rrently May 15, 2024 12:50pm 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, antepartum May 15, 2024 12:50pm High cholesterol May 15, 2024 12:50pm Obesity affecting April 12:50pm Ovarian cyst May 15, 2024 12:50pm May 15, 2024 12:50pm Request for sterilization May 15, 2024 12:50pm Seasonal allergies May 15, 2024 12:50pm Supervision of high-risk Febru elías 2024 12:50pm Abnormal glucose level May 29, 2024 3:03pm Anxiety and depression May 29, 2024 3:03pm Former smoker May 29, 2024 3:0 3pm Gestational diabetes May 29, 2024 3: 03pm H/O pre-eclampsia in prior , cu rrently May 29, 2024 3:03pm 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, antepartum May 29, 2024 3:03pm High cholesterol May 29, 2024 3:0 3pm Obesity affecting May 29, 2024 3:03pm Ovarian cyst May 29, 2024 3:0 3pm May 29, 2024 3:0 3pm Request for sterilization May 29 3:03pm Seasonal allergies May 29, 2024 3:0 3pm Supervision of high-risk May 29, 2024 3:03pm Abnormal glucose level June 12, 2024 9:07am Anxiety and depression June 12, 2024 9:07am Former smoker June 12, 2024 9:0 7am Gestational diabetes June 12, 2024 9: 07am H/O pre-eclampsia in prior , cu rrently June 12, 2024 9:07am 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, antepartum June 12, 2024 9:07am High cholesterol June 12, 2024 9:0 7am Obesity affecting June 12, 2024 9:07am Ovarian cyst June 12, 2024 9:0 7am June 12, 2024 9:0 7am Request for sterilization June 12 9:07am Seasonal allergies June 12, 2024 9:0 7am Supervision of high-risk June 12, 2024 9:07am Abnormal glucose level June 19, 2024 12:15pm Anxiety and depression June 19, 2024 12:15pm Former smoker June 19, 2024 12: 15pm Gestational diabetes June 19, 2024 12 :15pm H/O pre-eclampsia in prior , cu rrently June 19, 2024 12:15pm 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, antepartum June 19, 2024 12:15pm High cholesterol June 19, 2024 12: 15pm NST (non-stress test) reactive May 12:15pm Obesity affecting June 19, 2024 12:15pm Ovarian cyst June 19, 2024 12: 15pm June 19, 2024 12: 15pm Request for sterilization June 19 12:15pm Seasonal allergies June 19, 2024 12: 15pm Supervision of high-risk June 19, 2024 12:15pm Chief Complaint Admit Date CERVICAL LENGTH March 10, 2024 12:12pm 22 WK OB March 20, 2024 8:48am 26 WK OB April 17, 2024 8 :23am SCREEN FOR GESTATIONAL DB April 25, 2024 6:44am 30 WK OB May 15, 2024 12:50pm 32 WEEK GROWTH May 23, 2024 9:4 8am 32 WK OB May 29, 2024 3:0 3pm 24 WK OB June 12, 2024 9:0 7am 34 WEEK WELL BEING June 12 11:58am 35 WEEK WELL BEING/NST June 19, 2024 12:15pm 35 WEEK WELL BEING/NST June 19, 2024 2:37pm 35WK NST June 23, 2024 9:29 am 36 WEEK GROWTH June 27, 2024 4:25 pm Reason for Visit Admit Date Anxiety and depression March 20 8:48am Former smoker March 20, 2024 8:48am H/O pre-eclampsia in prior , cu rrently March 20, 2024 8:48am 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, antepartum March 20, 2024 8:48am High cholesterol March 20, 2024 8:48am Obesity affecting February 8:48am Ovarian cyst March 20, 2024 8:48am March 20, 2024 8:48am Request for sterilization March 20, 2024 8:48am Seasonal allergies March 20, 2024 8:48am Supervision of high-risk Dece 2023 8:48am Hypothyroidism March 20, 2024 8:48am Anxiety and depression April 17 8:23am Former smoker April 17, 2024 8 :23am H/O pre-eclampsia in prior , cu rrently April 17, 2024 8:23am 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, antepartum April 17, 2024 8:23am High cholesterol April 17, 2024 8 :23am Obesity affecting March 8:23am Ovarian cyst April 17, 2024 8 :23am April 17, 2024 8 :23am Request for sterilization April 17, 2024 8:23am Seasonal allergies April 17, 2024 8 :23am Supervision of high-risk Janua 2024 8:23am Abnormal glucose level May 15 12:50pm Anxiety and depression May 15 12:50pm Former smoker May 15, 2024 12:50pm Gestational diabetes May 15, 2024 12:50pm H/O pre-eclampsia in prior , cu rrently May 15, 2024 12:50pm 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, antepartum May 15, 2024 12:50pm High cholesterol May 15, 2024 12:50pm Obesity affecting April 12:50pm Ovarian cyst May 15, 2024 12:50pm May 15, 2024 12:50pm Request for sterilization May 15, 2024 12:50pm Seasonal allergies May 15, 2024 12:50pm Supervision of high-risk Febru elías 2024 12:50pm Abnormal glucose level May 29, 2024 3:03pm Anxiety and depression May 29, 2024 3:03pm Former smoker May 29, 2024 3:0 3pm Gestational diabetes May 29, 2024 3: 03pm H/O pre-eclampsia in prior , cu rrently May 29, 2024 3:03pm 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, antepartum May 29, 2024 3:03pm High cholesterol May 29, 2024 3:0 3pm Obesity affecting May 29, 2024 3:03pm Ovarian cyst May 29, 2024 3:0 3pm May 29, 2024 3:0 3pm Request for sterilization May 29 3:03pm Seasonal allergies May 29, 2024 3:0 3pm Supervision of high-risk May 29, 2024 3:03pm Abnormal glucose level June 12, 2024 9:07am Anxiety and depression June 12, 2024 9:07am Former smoker June 12, 2024 9:0 7am Gestational diabetes June 12, 2024 9: 07am H/O pre-eclampsia in prior , cu rrently June 12, 2024 9:07am 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, antepartum June 12, 2024 9:07am High cholesterol June 12, 2024 9:0 7am Obesity affecting June 12, 2024 9:07am Ovarian cyst June 12, 2024 9:0 7am June 12, 2024 9:0 7am Request for sterilization June 12 9:07am Seasonal allergies June 12, 2024 9:0 7am Supervision of high-risk June 12, 2024 9:07am Abnormal glucose level June 19, 2024 12:15pm Anxiety and depression June 19, 2024 12:15pm Former smoker June 19, 2024 12: 15pm Gestational diabetes June 19, 2024 12 :15pm H/O pre-eclampsia in prior , cu rrently June 19, 2024 12:15pm 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, antepartum June 19, 2024 12:15pm High cholesterol June 19, 2024 12: 15pm NST (non-stress test) reactive May 12:15pm Obesity affecting June 19, 2024 12:15pm Ovarian cyst June 19, 2024 12: 15pm June 19, 2024 12: 15pm Request for sterilization June 19 12:15pm Seasonal allergies June 19, 2024 12: 15pm Supervision of high-risk June 19, 2024 12:15pm Abnormal glucose level June 23, 2024 9 :29am Anxiety and depression June 23, 2024 9 :29am Breech presentation June 23, 2024 9:29 am Former smoker June 23, 2024 9:29 am Gestational diabetes June 23, 2024 9:2 9am H/O pre-eclampsia in prior , cu rrently June 23, 2024 9:29am 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, antepartum June 23, 2024 9:29am High cholesterol June 23, 2024 9:29 am NST (non-stress test) reactive June 9:29am Obesity affecting June 23, 025 9:29am Ovarian cyst June 23, 2024 9:29 am June 23, 2024 9:29 am Request for sterilization June 23 9:29am Seasonal allergies June 23, 2024 9:29 am Supervision of high-risk June 23, 2024 9:29am Chief Complaint Admit Date CERVICAL LENGTH March 10, 2024 12:12pm 22 WK OB March 20, 2024 8:48am 26 WK OB April 17, 2024 8 :23am SCREEN FOR GESTATIONAL DB April 25, 2024 6:44am 30 WK OB May 15, 2024 12:50pm 32 WEEK GROWTH May 23, 2024 9:4 8am 32 WK OB May 29, 2024 3:0 3pm 24 WK OB June 12, 2024 9:0 7am 34 WEEK WELL BEING June 12 11:58am 35 WEEK WELL BEING/NST June 19, 2024 12:15pm 35 WEEK WELL BEING/NST June 19, 2024 2:37pm 35WK NST June 23, 2024 9:29 am 36 WEEK GROWTH June 27, 2024 4:25 pm 37 WK OB/NST June 30, 2024 9:4 4am Reason for Visit Admit Date Anxiety and depression March 20 8:48am Former smoker March 20, 2024 8:48am H/O pre-eclampsia in prior , cu rrently March 20, 2024 8:48am 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, antepartum March 20, 2024 8:48am High cholesterol March 20, 2024 8:48am Obesity affecting February 8:48am Ovarian cyst March 20, 2024 8:48am March 20, 2024 8:48am Request for sterilization March 20, 2024 8:48am Seasonal allergies March 20, 2024 8:48am Supervision of high-risk Decem 2023 8:48am Hypothyroidism March 20, 2024 8:48am Anxiety and depression April 17 8:23am Former smoker April 17, 2024 8 :23am H/O pre-eclampsia in prior , cu rrently April 17, 2024 8:23am 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, antepartum April 17, 2024 8:23am High cholesterol April 17, 2024 8 :23am Obesity affecting March 8:23am Ovarian cyst April 17, 2024 8 :23am April 17, 2024 8 :23am Request for sterilization April 17, 2024 8:23am Seasonal allergies April 17, 2024 8 :23am Supervision of high-risk Janua 2024 8:23am Abnormal glucose level May 15 12:50pm Anxiety and depression May 15 12:50pm Former smoker May 15, 2024 12:50pm Gestational diabetes May 15, 2024 12:50pm H/O pre-eclampsia in prior , cu rrently May 15, 2024 12:50pm 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, antepartum May 15, 2024 12:50pm High cholesterol May 15, 2024 12:50pm Obesity affecting April 12:50pm Ovarian cyst May 15, 2024 12:50pm May 15, 2024 12:50pm Request for sterilization May 15, 2024 12:50pm Seasonal allergies May 15, 2024 12:50pm Supervision of high-risk Febru elías 2024 12:50pm Abnormal glucose level May 29, 2024 3:03pm Anxiety and depression May 29, 2024 3:03pm Former smoker May 29, 2024 3:0 3pm Gestational diabetes May 29, 2024 3: 03pm H/O pre-eclampsia in prior , cu rrently May 29, 2024 3:03pm 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, antepartum May 29, 2024 3:03pm High cholesterol May 29, 2024 3:0 3pm Obesity affecting May 29, 2024 3:03pm Ovarian cyst May 29, 2024 3:0 3pm May 29, 2024 3:0 3pm Request for sterilization May 29 3:03pm Seasonal allergies May 29, 2024 3:0 3pm Supervision of high-risk May 29, 2024 3:03pm Abnormal glucose level June 12, 2024 9:07am Anxiety and depression June 12, 2024 9:07am Former smoker June 12, 2024 9:0 7am Gestational diabetes June 12, 2024 9: 07am H/O pre-eclampsia in prior , cu rrently June 12, 2024 9:07am 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, antepartum June 12, 2024 9:07am High cholesterol June 12, 2024 9:0 7am Obesity affecting June 12, 2024 9:07am Ovarian cyst June 12, 2024 9:0 7am June 12, 2024 9:0 7am Request for sterilization June 12 9:07am Seasonal allergies June 12, 2024 9:0 7am Supervision of high-risk June 12, 2024 9:07am Abnormal glucose level June 19, 2024 12:15pm Anxiety and depression June 19, 2024 12:15pm Former smoker June 19, 2024 12: 15pm Gestational diabetes June 19, 2024 12 :15pm H/O pre-eclampsia in prior , cu rrently June 19, 2024 12:15pm 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, antepartum June 19, 2024 12:15pm High cholesterol June 19, 2024 12: 15pm NST (non-stress test) reactive May 12:15pm Obesity affecting June 19, 2024 12:15pm Ovarian cyst June 19, 2024 12: 15pm June 19, 2024 12: 15pm Request for sterilization June 19 12:15pm Seasonal allergies June 19, 2024 12: 15pm Supervision of high-risk June 19, 2024 12:15pm Abnormal glucose level June 23, 2024 9 :29am Anxiety and depression June 23, 2024 9 :29am Breech presentation June 23, 2024 9:29 am Former smoker June 23, 2024 9:29 am Gestational diabetes June 23, 2024 9:2 9am H/O pre-eclampsia in prior , cu rrently June 23, 2024 9:29am 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, antepartum June 23, 2024 9:29am High cholesterol June 23, 2024 9:29 am NST (non-stress test) reactive June 9:29am Obesity affecting June 23 025 9:29am Ovarian cyst June 23, 2024 9:29 am June 23, 2024 9:29 am Request for sterilization June 23 9:29am Seasonal allergies June 23, 2024 9:29 am Supervision of high-risk June 23, 2024 9:29am Abnormal glucose level June 30, 2024 9:44am Anxiety and depression June 30, 2024 9:44am Breech presentation June 30, 2024 9:4 4am Former smoker June 30, 2024 9:4 4am Gestational diabetes June 30, 2024 9: 44am H/O pre-eclampsia in prior , cu rrently June 30, 2024 9:44am 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, antepartum June 30, 2024 9:44am High cholesterol June 30, 2024 9:4 4am NST (non-stress test) reactive June 9:44am Obesity affecting June 30, 2024 9:44am Ovarian cyst June 30, 2024 9:4 4am June 30, 2024 9:4 4am Request for sterilization June 30 9:44am Seasonal allergies June 30, 2024 9:4 4am Supervision of high-risk June 30, 2024 9:44am Chief Complaint Admit Date CERVICAL LENGTH March 10, 2024 12:12pm 22 WK OB March 20, 2024 8:48am 26 WK OB April 17, 2024 8 :23am SCREEN FOR GESTATIONAL DB April 25, 2024 6:44am 30 WK OB May 15, 2024 12:50pm 32 WEEK GROWTH May 23, 2024 9:4 8am 32 WK OB May 29, 2024 3:0 3pm 24 WK OB June 12, 2024 9:0 7am 34 WEEK WELL BEING June 12 11:58am 35 WEEK WELL BEING/NST June 19, 2024 12:15pm 35 WEEK WELL BEING/NST June 19, 2024 2:37pm 35WK NST June 23, 2024 9:29 am 36 WEEK GROWTH June 27, 2024 4:25 pm 37 WK OB/NST June 30, 2024 9:4 4am 37 WEEK WELL BEING July 03 12:00pm Chief Complaint Admit Date 22 WK OB March 20, 2024 8:48am 26 WK OB April 17, 2024 8 :23am SCREEN FOR GESTATIONAL DB April 25, 2024 6:44am 30 WK OB May 15, 2024 12:50pm 32 WEEK GROWTH May 23, 2024 9:4 8am 32 WK OB May 29, 2024 3:0 3pm 24 WK OB June 12, 2024 9:0 7am 34 WEEK WELL BEING June 12 11:58am 35 WEEK WELL BEING/NST June 19, 2024 12:15pm 35 WEEK WELL BEING/NST June 19, 2024 2:37pm 35WK NST June 23, 2024 9:29 am 36 WEEK GROWTH June 27, 2024 4:25 pm 37 WK OB/NST June 30, 2024 9:4 4am 37 WEEK WELL BEING July 03 12:00pm 38 WK OB/NST July 07, 2024 12: 50pm 38 WEEKS WELL BEING July 10 11:51am VAGINAL DELIVERY July 13, 2024 7:1 1am INDUCTION July 13, 2024 8:2 1am VAGINAL DELIVERY July 14, 2024 8:1 9am Reason for Visit Admit Date Anxiety and depression March 20 8:48am Former smoker March 20, 2024 8:48am H/O pre-eclampsia in prior , cu rrently March 20, 2024 8:48am 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, antepartum March 20, 2024 8:48am High cholesterol March 20, 2024 8:48am Obesity affecting February 8:48am Ovarian cyst March 20, 2024 8:48am March 20, 2024 8:48am Request for sterilization March 20, 2024 8:48am Seasonal allergies March 20, 2024 8:48am Supervision of high-risk Decem 2023 8:48am Hypothyroidism March 20, 2024 8:48am Anxiety and depression April 17 8:23am Former smoker April 17, 2024 8 :23am H/O pre-eclampsia in prior , cu rrently April 17, 2024 8:23am 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, antepartum April 17, 2024 8:23am High cholesterol April 17, 2024 8 :23am Obesity affecting March 8:23am Ovarian cyst April 17, 2024 8 :23am April 17, 2024 8 :23am Request for sterilization April 17, 2024 8:23am Seasonal allergies April 17, 2024 8 :23am Supervision of high-risk Janua 2024 8:23am Abnormal glucose level May 15 12:50pm Anxiety and depression May 15 12:50pm Former smoker May 15, 2024 12:50pm Gestational diabetes May 15, 2024 12:50pm H/O pre-eclampsia in prior , cu rrently May 15, 2024 12:50pm 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, antepartum May 15, 2024 12:50pm High cholesterol May 15, 2024 12:50pm Obesity affecting April 12:50pm Ovarian cyst May 15, 2024 12:50pm May 15, 2024 12:50pm Request for sterilization May 15, 2024 12:50pm Seasonal allergies May 15, 2024 12:50pm Supervision of high-risk Febru elías 2024 12:50pm Abnormal glucose level May 29, 2024 3:03pm Anxiety and depression May 29, 2024 3:03pm Former smoker May 29, 2024 3:0 3pm Gestational diabetes May 29, 2024 3: 03pm H/O pre-eclampsia in prior , cu rrently May 29, 2024 3:03pm 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, antepartum May 29, 2024 3:03pm High cholesterol May 29, 2024 3:0 3pm Obesity affecting May 29, 2024 3:03pm Ovarian cyst May 29, 2024 3:0 3pm May 29, 2024 3:0 3pm Request for sterilization May 29 3:03pm Seasonal allergies May 29, 2024 3:0 3pm Supervision of high-risk May 29, 2024 3:03pm Abnormal glucose level June 12, 2024 9:07am Anxiety and depression June 12, 2024 9:07am Former smoker June 12, 2024 9:0 7am Gestational diabetes June 12, 2024 9: 07am H/O pre-eclampsia in prior , cu rrently June 12, 2024 9:07am 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, antepartum June 12, 2024 9:07am High cholesterol June 12, 2024 9:0 7am Obesity affecting June 12, 2024 9:07am Ovarian cyst June 12, 2024 9:0 7am June 12, 2024 9:0 7am Request for sterilization June 12 9:07am Seasonal allergies June 12, 2024 9:0 7am Supervision of high-risk June 12, 2024 9:07am Abnormal glucose level June 19, 2024 12:15pm Anxiety and depression June 19, 2024 12:15pm Former smoker June 19, 2024 12: 15pm Gestational diabetes June 19, 2024 12 :15pm H/O pre-eclampsia in prior , cu rrently June 19, 2024 12:15pm 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, antepartum June 19, 2024 12:15pm High cholesterol June 19, 2024 12: 15pm NST (non-stress test) reactive May 12:15pm Obesity affecting June 19, 2024 12:15pm Ovarian cyst June 19, 2024 12: 15pm June 19, 2024 12: 15pm Request for sterilization June 19 12:15pm Seasonal allergies June 19, 2024 12: 15pm Supervision of high-risk June 19, 2024 12:15pm Abnormal glucose level June 23, 2024 9 :29am Anxiety and depression June 23, 2024 9 :29am Former smoker June 23, 2024 9:29 am Gestational diabetes June 23, 2024 9:2 9am H/O pre-eclampsia in prior , cu rrently June 23, 2024 9:29am 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, antepartum June 23, 2024 9:29am High cholesterol June 23, 2024 9:29 am NST (non-stress test) reactive June 9:29am Obesity affecting June 23, 025 9:29am Ovarian cyst June 23, 2024 9:29 am June 23, 2024 9:29 am Request for sterilization June 23 9:29am Seasonal allergies June 23, 2024 9:29 am Supervision of high-risk June 23, 2024 9:29am Breech presentation June 23, 2024 9:29 am Abnormal glucose level June 30, 2024 9:44am Anxiety and depression June 30, 2024 9:44am Former smoker June 30, 2024 9:4 4am Gestational diabetes June 30, 2024 9: 44am H/O pre-eclampsia in prior , cu rrently June 30, 2024 9:44am 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, antepartum June 30, 2024 9:44am High cholesterol June 30, 2024 9:4 4am NST (non-stress test) reactive June 9:44am Obesity affecting June 30, 2024 9:44am Ovarian cyst June 30, 2024 9:4 4am June 30, 2024 9:4 4am Request for sterilization June 30 9:44am Seasonal allergies June 30, 2024 9:4 4am Supervision of high-risk June 30, 2024 9:44am Breech presentation June 30, 2024 9:4 4am Abnormal glucose level July 07, 2024 12:50pm Anxiety and depression July 07, 2024 12:50pm Former smoker July 07, 2024 12: 50pm Gestational diabetes July 07, 2024 12 :50pm H/O pre-eclampsia in prior , cu rrently July 07, 2024 12:50pm 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, antepartum July 07, 2024 12:50pm High cholesterol July 07, 2024 12: 50pm NST (non-stress test) reactive June 12:50pm Obesity affecting July 07, 2024 12:50pm Ovarian cyst July 07, 2024 12: 50pm July 07, 2024 12: 50pm Request for sterilization July 07 12:50pm Seasonal allergies July 07, 2024 12: 50pm Supervision of high-risk July 07, 2024 12:50pm Abnormal glucose level July 13, 2024 7:11am Anxiety and depression July 13, 2024 7:11am Encounter for induction of labor June [id number] 7:11am Former smoker July 13, 2024 7:1 1am Gestational diabetes July 13, 2024 7: 11am H/O pre-eclampsia in prior , cu rrently July 13, 2024 7:11am 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, antepartum July 13, 2024 7:11am High cholesterol July 13, 2024 7:1 1am Obesity affecting July 13, 2024 7:11am Ovarian cyst July 13, 2024 7:1 1am July 13, 2024 7:1 1am Request for sterilization July 13 7:11am Seasonal allergies July 13, 2024 7:1 1am Supervision of high-risk July 13, 2024 7:11am Vaginal delivery July 13, 2024 7:1 1am Additional Source Comments INFORMATION SOURCE (unrecogn ized section and content) DATE CREATED AUTHOR 09/13/2017 [facility] DATE CREATED AUTHOR AUTHOR'S ORGANIZ ATION 11/14/2017 [facility] DATE CREATED AUTHOR AUTHOR'S ORGANIZ ATION 03/20/2022 [facility] DATE CREATED AUTHOR AUTHOR'S ORGANIZ ATION 06/03/2023 [facility] DATE CREATED AUTHOR AUTHOR'S ORGANIZ ATION 12/01/2023 [facility] DATE CREATED AUTHOR AUTHOR'S ORGANIZ ATION 07/25/2024 [facility] DATE CREATED AUTHOR AUTHOR'S ORGANIZ ATION 08/19/2024 [facility] Reason for Visit (unrecogniz ed section and content) Reason Comments Appointment Reason Comments Anxiety Depression Eating Disorder Binge eating Nasal Congestion Back Pain middle Dry Skin Eczema Weight Management Session Wants to resta rt Adipex Obesity Reason Comments Obesity Weight Management Session Reason Comments Obesity Weight Management Session Anxiety Depression Reason Comments Ear Pain Symptoms started 3 d ays ago, 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 Desires and will like IUD removed Specialty Diagnoses / Procedures Referred By Ernst teixeira Referred To Contact ROAD TESTER Diagnoses Encounter to establish care System, Provider Not In Karol Rosenthal MD [address] [place] [address] Referral ID Status Reason Start Date Expiration Date Visits Re quested Visits Authorized [id number] Closed 02/10/2023 03/06/2024 1 1 Reason Comments URI Sore throat, fatigue , ear pain, congestion. Pt has been sick for about 3 weeks. Reason Comments Anxiety Depression Sleep Problem Fatigue Weight Gain Reason Comments Anxiety Depression Hyperlipidemia Reason Comments Abdominal Pain Pt to ED with abd pa in x 4 days, and started having a fever today. Pt is currently 7 weeks pregenant. Denies any bleeding or spotting. Rates abd pain 08/29 @ this time. Temp in triage was 100.7F oral. No meds taken for pain today. <item><item> Privacy Markings (unrecogniz ed section and content) Section Author: Queenie Bridges PROHIBITION ON REDISCLOSURE OF CONFIDENTIAL INFORMATION This notice accompanies a disclosure of information concerning a client made to you with the consent of such client. Section Author: Queenie Bridges PROHIBITION ON REDISCLOSURE OF CONFIDENTIAL INFORMATION This notice accompanies a disclosure of information concerning a client made to you with the consent of such client. Care Teams (unrecognized sec tion and content) Rinkman Relationship Specialty Start Date End Date Nancy Sam APRN-CNP PCP - General Certified Nurse Practitioner 09/06/17 Rinkman Relationship Specialty Start Date End Date Nancy Sam APRN-CNP PCP - General Certified Nurse Practitioner 09/06/17 Rinkman Relationship Specialty Start Date End Date Nancy Sam APRN-CNP PCP - General Certified Nurse Practitioner 09/06/17 Rinkman Relationship Specialty Start Date End Date Nancy Sam APRN-CNP PCP - General Certified Nurse Practitioner 09/06/17 Rinkman Relationship Specialty Start Date End Date Nancy Sam APRN-CNP PCP - General Certified Nurse Practitioner 09/06/17 Rinkman Relationship Specialty Start Date End Date Nancy Sam APRN-CNP [address] [place] [address] PCP - General 11/10/19 Rinkman Relationship Specialty Start Date End Date Nancy Sam APRN-CNP PCP - General Certified Nurse Practitioner 09/06/17 Rinkman Relationship Specialty Start Date End Date Nancy Sam APRN-CNP PCP - General Certified Nurse Practitioner 09/06/17 Rinkman Relationship Specialty Start Date End Date Nancy Sam APRN-CNP PCP - General Certified Nurse Practitioner 09/06/17 Team Status: Active Member Role Status Dates KULDIP Marroquin Primary Care Provider Active Team Status: Inactive Member Role Status Dates No Primary Care Physician Primary Care Provider Active Start: February 28, 2024 End: February 28, 2024 No Primary Care Physician Referring Provider Active Start: February 28, 2024 End: February 28, 2024 Santa Adair NP CAMPAIGN MARKETING MANAGERHonorioC Attending Provider Active Start: February 28, 2024 End: February 28, 2024 Team Status: Inactive Member Role Status Dates No Primary Care Physician Primary Care Provider Active Start: March 10, 2024 End: March 10, 2024 Santa Washougal CAMPAIGN MARKETING MANAGER, CAMPAIGN MARKETING MANAGER-C Attending Provider Active Start: March 10, 2024 End: March 10, 2024 Santa Adair CAMPAIGN MARKETING MANAGER, CAMPAIGN MARKETING MANAGER-C Referring Provider Active Start: March 10, 2024 End: March 10, 2024 Team Status: Inactive Member Role Status Dates No Primary Care Physician Primary Care Provider Active Start: March 20, 2024 End: March 20, 2024 No Primary Care Physician Referring Provider Active Start: March 20, 2024 End: March 20, 2024 Dr. Britany Davalos DO Attending Provider Activ e Start: March 20, 2024 End: March 20, 2024 Team Status: Inactive Member Role Status Dates No Primary Care Physician Primary Care Provider Active Start: April 17, 2024 End: April 17, 2024 No Primary Care Physician Referring Provider Active Start: April 17, 2024 End: April 17, 2024 Dr. Stephanie Mtz MD Attending Provider Active Start: April 17, 2024 End: April 17, 2024 Team Status: Inactive Member Role Status Dates No Primary Care Physician Primary Care Provider Active Start: April 17, 2024 End: April 17, 2024 Dr. Stephanie Mtz MD Attending Provider Active Start: April 17, 2024 End: April 17, 2024 Dr. Stephanie Mtz MD Referring Provider Active Start: April 17, 2024 End: April 17, 2024 Team Status: Inactive Member Role Status Dates Santa Adair CAMPAIGN MARKETING MANAGER, CAMPAIGN MARKETING MANAGER-C Attending Provider Active Start: April 25, 2024 End: April 25, 2024 Santa Adair CAMPAIGN MARKETING MANAGER, CAMPAIGN MARKETING MANAGER-C Referring Provider Active Start: April 25, 2024 End: April 25, 2024 Nancy Sam , CAMPAIGN MARKETING MANAGER-C Primary Care Provider Active Start: April 25, 2024 End: April 25, 2024 Team Status: Inactive Member Role Status Dates No Primary Care Physician Referring Provider Active Start: May 15, 2024 End: May 15, 2024 Lara Cespedes CNM Attending Provider Active S tart: May 15, 2024 End: May 15, 2024 Nancy Sam , CAMPAIGN MARKETING MANAGER-C Primary Care Provider Active Start: May 15, 2024 End: May 15, 2024 Team Status: Inactive Member Role Status Dates Dr. Stephanie Mtz MD Attending Provider Active Start: May 23, 2024 End: May 23, 2024 Dr. Stephanie Mtz MD Referring Provider Active Start: May 23, 2024 End: May 23, 2024 Nancy Sam , CAMPAIGN MARKETING MANAGER-C Primary Care Provider Active Start: May 23, 2024 End: May 23, 2024 Team Status: Inactive Member Role Status Dates No Primary Care Physician Referring Provider Active Start: May 29, 2024 End: May 29, 2024 Lara Cespedes CNM Attending Provider Active S tart: May 29, 2024 End: May 29, 2024 Nancywally Sam , CAMPAIGN MARKETING MANAGER-C Primary Care Provider Active Start: May 29, 2024 End: May 29, 2024 Team Status: Inactive Member Role Status Dates No Primary Care Physician Referring Provider Active Start: June 12, 2024 End: June 12, 2024 Dr. Britany Davalos DO Attending Provider Activ e Start: June 12, 2024 End: June 12, 2024 Nancywally Sam , CAMPAIGN MARKETING MANAGER-C Primary Care Provider Active Start: June 12, 2024 End: June 12, 2024 Team Status: Inactive Member Role Status Dates Dr. Stephanie Mtz MD Attending Provider Active Start: June 12, 2024 End: June 12, 2024 Dr. Stephanie Mtz MD Referring Provider Active Start: June 12, 2024 End: June 12, 2024 Nancy Sam , CAMPAIGN MARKETING MANAGER-C Primary Care Provider Active Start: June 12, 2024 End: June 12, 2024 Team Status: Inactive Member Role Status Dates Dr. Stephanie Mtz MD Referring Provider Active Start: June 19, 2024 End: June 19, 2024 Dr. Stephanie Mtz MD Other Provider Active Start: June 19, 2024 End: June 19, 2024 Nancy Sam , CAMPAIGN MARKETING MANAGER-C Primary Care Provider Active Start: June 19, 2024 End: June 19, 2024 Lara Cespedes CNM Attending Provider Active S tart: June 19, 2024 End: June 19, 2024 Team Status: Active Member Role Status Dates Dr. Stephanie Mtz MD Referring Provider Active Start: June 19, 2024 Dr. Stephanie Mtz MD Other Provider Active Start: June 19, 2024 Nancy Sam , CAMPAIGN MARKETING MANAGER-C Primary Care Provider Active Start: June 19, 2024 Lara Cespedes CNM Attending Provider Active S tart: June 19, 2024 Lara Cespedes CNM Other Provider Active Start : June 19, 2024 Team Status: Inactive Member Role Status Dates Nancywally Sam , CAMPAIGN MARKETING MANAGER-C Primary Care Provider Active Start: June 23, 2024 End: June 23, 2024 Nancy Sam , CAMPAIGN MARKETING MANAGER-C Referring Provider Active S tart: June 23, 2024 End: June 23, 2024 Lara Cespedes CNM Attending Provider Active S tart: June 23, 2024 End: June 23, 2024 Team Status: Inactive Member Role Status Dates Nancy Sam , CAMPAIGN MARKETING MANAGER-C Primary Care Provider Active Start: June 23, 2024 End: June 23, 2024 Lara Cespedes CNM Attending Provider Active S tart: June 23, 2024 End: June 23, 2024 Lara Cespedes CNM Referring Provider Active S tart: June 23, 2024 End: June 23, 2024 Team Status: Active Member Role Status Dates Dr. Stephanie Mtz MD Attending Provider Active Start: June 27, 2024 Dr. Stephanie Mtz MD Referring Provider Active Start: June 27, 2024 Nancy Sam , CAMPAIGN MARKETING MANAGER-C Primary Care Provider Active Start: June 27, 2024 Team Status: Inactive Member Role Status Dates Dr. Stephanie Mtz MD Attending Provider Active Start: June 27, 2024 End: June 27, 2024 Dr. Stephanie Mtz MD Referring Provider Active Start: June 27, 2024 End: June 27, 2024 Nancy Sam , CAMPAIGN MARKETING MANAGER-C Primary Care Provider Active Start: June 27, 2024 End: June 27, 2024 Team Status: Inactive Member Role Status Dates Nancy Sam , CAMPAIGN MARKETING MANAGER-C Primary Care Provider Active Start: June 30, 2024 End: June 30, 2024 Nancy Sam , CAMPAIGN MARKETING MANAGER-C Referring Provider Active S tart: June 30, 2024 End: June 30, 2024 Dr. Britany Davalos DO Attending Provider Activ e Start: June 30, 2024 End: June 30, 2024 Team Status: Inactive Member Role Status Dates Dr. Stephanie Mtz MD Attending Provider Active Start: July 03, 2024 End: July 03, 2024 Dr. Stephanie Mtz MD Referring Provider Active Start: July 03, 2024 End: July 03, 2024 Nancy Sam , CAMPAIGN MARKETING MANAGER-C Primary Care Provider Active Start: July 03, 2024 End: July 03, 2024 Team Status: Inactive Member Role Status Dates Nancy Sam , CAMPAIGN MARKETING MANAGER-C Primary Care Provider Active Start: July 07, 2024 End: July 07, 2024 Nancy Sam , CAMPAIGN MARKETING MANAGER-C Referring Provider Active S tart: July 07, 2024 End: July 07, 2024 Dr. Stephanie Mtz MD Attending Provider Active Start: July 07, 2024 End: July 07, 2024 Team Status: Inactive Member Role Status Dates Dr. Stephanie Mtz MD Attending Provider Active Start: July 10, 2024 End: July 10, 2024 Dr. Stephanie Mtz MD Referring Provider Active Start: July 10, 2024 End: July 10, 2024 Nancy Sam , CAMPAIGN MARKETING MANAGER-C Primary Care Provider Active Start: July 10, 2024 End: July 10, 2024 Team Status: Inactive Member Role Status Dates Nancy Sam , CAMPAIGN MARKETING MANAGER-C Primary Care Provider Active Start: July 13, 2024 End: July 14, 2024 Dr. Stephanie Mtz MD Admit Provider Active Start: July 13, 2024 End: July 14, 2024 Dr. Stephanie Mtz MD Attending Provider Active Start: July 13, 2024 End: July 14, 2024 Dr. Stephanie Mtz MD Referring Provider Active Start: July 13, 2024 End: July 14, 2024 Team Status: Active Member Role Status Dates Nancy Sam CAMPAIGN MARKETING MANAGER-C Primary Care Provider Active Start: July 13, 2024 Dr. Stephanie Mtz MD Admit Provider Active Start: July 13, 2024 Dr. Stephanie Mtz MD Attending Provider Active Start: July 13, 2024 Dr. Stephanie Mtz MD Referring Provider Active Start: July 13, 2024 Dr. Stephanie Mtz MD Other Provider Active Start: July 13, 2024 Team Status: Active Member Role Status Dates Nancy Sam , CAMPAIGN MARKETING MANAGER-C Primary Care Provider Active Start: July 14, 2024 Dr. Stephanie Mtz MD Admit Provider Active Start: July 14, 2024 Dr. Stephanie Mtz MD Referring Provider Active Start: July 14, 2024 Dr. Stephanie Mtz MD Other Provider Active Start: July 14, 2024 Delisa Molina CNM Attending Provider Active Start: July 14, 2024 Scheduled Active and Recently Administ ered Medications (unrecognized section and content) Medication Order 11/24/2023 11/25/2023 11/26/2023 Acetaminophen (TYLENOL) tablet 650 mg (COMPLETED) 650 mg, Oral, ONCE, 1 dose, On Celia 11/25/23 at 2230 0014 (Given - Provid er: Yin Winters RN) Docusate (COLACE) capsule 100 mg (COMPLETED) 100 mg, Oral, ONCE, 1 dose, On Wed11/26/23 at 0300 0254 (Given - Provid er: Yin Winters RN) iohexol (OMNIPAQUE) 350 MG/ML injection 75 mL (COMPLETED) 75 mL, Intravenous, ONCE, 1 dose, On Wed11/26/23 at 0215, Extravasation Risk, Radiology Procedure 0157 (Given - Radiol ogy - Provider: Robyn Delaney) Sodium chloride 0.9% IV solution 1,000 mL (COMPLETED) 1,000 mL, Intravenous, ONCE, 1 dose, On Celia 11/25/23 at 2230 0014 ($$New Bag$$ - Provider: Yin Winters RN)0232 (Rate/Dose Verify - Provider: Yin Winters RN)0300 (Stopped - Provider: Yin Winters RN) Sodium chloride 0.9% IV solution 75 mL (COMPLETED) 75 mL, Intravenous, ONCE, 1 dose, On Wed11/26/23 at 0215, Radiology Procedure 0157 ($$New Bag$$ - Provider: Robyn Delaney)0206 (Stopped - Provider: Yin Winters RN) Goals (unrecognized section and content) Goals may be documented in a n alternate sectionGoals may be documented in an alternate sectionGoals may be documented in an alternate sectionGoals may be documented in an alternate sectionGoals may be documented in an alternate sectionGoals may be documented in an alternate section FOR RECORDS PERTAINING TO PATIENTS WHO ARE OR HAVE BEEN ENROLLED IN A CHEMICAL DEPENDENCY/SUBSTANCEABUSE PROGRAM, SOME INFORMATION MAY BE OMITTED. This clinical summary was aggregated from multiple sources. Caution should be exercised in using it in the provision of clinical care. This summary normalizes information from multiple sources, and as a consequence, information in this document may materially change the coding, format and clinical context of patient data. In addition, data may be omitted in some cases. CLINICAL DECISIONS SHOULD BE BASED ON THE PRIMARY CLINICAL RECORDS. [facility]. provides no warranty or guarantee of the accuracy or completeness of information in this document.
== END | disposition home or self-care (01) ==
LOC: LABSPEC 15:23
PROVIDERS: Referring Provider Obstetrics & Gynecology; Visit Provider Obstetrics & Gynecology
DX: N89.8 Other specified noninflammatory disorders of vagina (principal)
CPT/HCPCS: 87070; 87205

== ENCOUNTER 2024-09-19 12:57 | Day surgery (SDC) | payer BC, SELFPAY ==
[2024-09-11 10:14] LABS: Hematocrit 40.9 % (37-47); Hemoglobin 13.4 g/dL (12.0-15.0); Immature Granulocytes Count 0.030 X10^3/uL (0.0-0.0); Mean Corp Hgb Conc 32.8 g/dL (32-36); Mean Corpuscular Volume 86.5 fL (81-99); Mean Platelet Vol. 10.3 fl (6.2-12.0); NRBC Flagged by Analyzer 0 % (0-5); Platelet Count 272 K/mm3 (150-450); RBC Distribution Width CV 13.7 % (11.6-14.6); RBC Distribution Width SD 43.5 fl (35.1-43.9); Red Blood Count 4.73 M/mm3 (4.2-5.4); White Blood Count 7.7 K/mm3 (4.4-11.0)
--- NOTE | 2024-09-18 12:59 | PCM.HP.BLA ---
History and Physical Date of Admission: 09/19/24 Intake Vital Signs 07/13/2506:13 08/24/2510:31 Height 5 ft 4 in 5 ft 4 in Weight: 252 lb 2 oz BMI 43.2 BP 119/74 Intake Visit Reasons: visit (obstetrics) Performance Improvement Manager Required: No Is patient in pain?: No Allergies mushroom Allergy (Verified 08/24/24 11:29) Swelling Medications ?Medication ?Instructions ?Recorded ?Confirmed ?Type vits,calcium no.78-iron 1 tab PO DAILY 04/18/15 08/24/24 History fumarate-folic acid 29 mg-1 mg tablet (Prenatabs FA) lactobacillus combination no.4 3 3,000 mmu cells PO QDAY 08/24/24 08/24/24 History billion cell capsule (Probiotic) : [facility] History Gestational diabetes History of pulmonary embolism Depression Psoriasis Seasonal allergies 39 weeks gestation of Family History Mother Heart disease HypothyroidismGrandmother , great-grandma Breast cancer Social History (Updated 08/24/24 @ 11:34 by Hilary Boyle) adopted: No household members: spouse and children number of children: 3 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 current occupational exposures/hazards: No pets and animals: Yes (Not taking care litter box) pets and animals: cat(s) history of recent travel: Yes ([place] in Nov 2023) out of state: Yes out of country: No sexually active: Yes Smoking Status: Former smoker alcohol intake: never substance use type: does not use diet: other well-balanced diet: daily or most days caffeine: Yes eating out: 1-3 times/week during the past year weight has: other details: Lost 30lbs on [place], has gain about 15lbs back what type of physical activity do you participate in: walking frequency: 3-4 times per week duration: < 15 minutes/day angela/buddhism: None seatbelt use: always do you feel safe at home: Yes additional 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 Date Name GA/Weeks Outcome Route Bth Weight Gen Labor Lgth Anesthesia Del Locatn Provider FOB Unknown Chemical - 2018 04/06/15 Braxten 38 live - full term 8lbs 14oz Male 36 epidural [facility] [place]-[facility]an Itz 01/12/19 Hood 39 live - full term 9lbs 4oz Male 8 epidural [facility] [place]-[facility] Itz 07/13/24 Sarmiento 39 live - full term 8lbs 11oz Female epidural [facility] Itz Delivery Date: 04/06/15 Last Updated by: Sujey Hong RN Gained 60lbs, Induced d/t early pre-e Delivery Date: 01/12/19 Last Updated by: Sujey Hong RN Induction d/t size Delivery Date: 07/13/24 Last Updated by: Sujey Hong RN See problem list for complications, and IOL SM GDM 39 Depression Screen PHQ-2/9 PHQ-2 Over the last 2 weeks, how often have you been bothered by any of the following problems? 1. Little interest or pleasure in doing things: not at all 2. Feeling down, depressed, or hopeless: not at all Total score: 0 Post HPI Routine Follow-Up: Details: YUSRA FUENTES is a 29 year old who presents for her post visit. ROS Const Reports system reviewed and no additional complaints, except as documented GI Reports system reviewed and no additional complaints, except as documented, Denies bloating, Denies constipation, Denies nausea and Denies vomiting Reports system reviewed and no additional complaints, except as documented, Denies abnormal vaginal bleeding, Denies pelvic pain, Denies sexual dysfunction, Denies urinary incontinence, Denies urinary hesitancy, Denies urinary urgency and Denies vaginal discharge Skin/Breast Reports system reviewed and no additional complaints, except as documented and Reports as per HPI Psych Reports as per HPI Exam Const General: cooperative, healthy appearing, comfortable and no acute distress HENMT Head: normal to inspection Neck Neck: normal visual inspection and no lymphadenopathy Thyroid: thyroid normal Chest Breast inspection: normal inspection of the breasts and normal inspection of the axillae Breast palpation: normal palpation of the breasts and normal palpation of the axillae Resp Effort & Inspection: normal respiratory effort GI Inspection: normal to inspection Palpation: soft, no hepatosplenomegaly and nontender General: bladder normal to palpation External Female Exam: normal external appearance and normal appearance of the urethra Urethra: normal appearance of the urethra Speculum Exam - Vagina: normal appearance of the vagina and normal vaginal discharge Speculum Exam - Cervix: normal appearance of the cervix Bimanual Exam- Vagina & Uterus: normal bimanual exam, uterine size normal, bladder normal to palpation, uterine shape normal and non-tender Bimanual Exam- Adnexa, other: normal adnexae and normal Pelvic Support: normal Skin General: no rashes or lesions noted Coding Level of Care Code No Charge Diagnoses Routine Follow-Up Z39.2 Assessment and Plan Assessment and Plan (1) Routine Follow-Up: Plan Cervical cancer screening: pap up to date Contraceptive plans: plan sterilization Complications: vaginal odor- red top sent Follow up for annual exams or sooner if indicated. After discussing the patient's diagnosis and treatment plan options, patient wishes to proceed with surgical management. I have discussed with the patient the risks, benefits, and alternatives of the procedure which include but are not limited to risks of anesthesia, bleeding, infection, possible damage to bowel, bladder, or surrounding vasculature which could lead to additional surgery to evaluate any complications. Patient agrees to procedure and wishes to proceed. ACOG/uptodate references given for additional information regarding procedure.
[2024-09-19] VITALS (9 sets, daily range): BP systolic 117–141; BP diastolic 68–76; PULSE 64–81; RESP 16; TEMP 36.1–36.9; O2SAT 95–99; BMI 42.7
[2024-09-19 13:25] LABS: Internal QC Validated? YES +Cl - CLEAR BKGD; Pregnancy, Urine Negative Negative; Record Kit Lot#,Urine Preg 0000947241
[2024-09-19] MEDS: Lactated Ringers 1,000 ML 999 ML IV (13:34)
--- NOTE | 2024-09-19 14:13 | PCM.PRE.AN2 ---
ASA Classification* ASA Classification ASA Classification: 3 Assessment & Plan Anesthesia* Anesthesia Assessment Anesthesia Assessment: Discussed sedation and/or anesthesia options, risks, benefits, and alternatives with patient/parents/legal guardian/POA. Questions invited. The patient/parents/legal guardian/POA seems to understand and agrees to proceed with anesthesia plan. Reviewed the physical assessment, medical history, allergy history and patient home medications list prior to surgery/procedure/anesthetic and documented any changes. Performed airway and anesthesia risk assessments. Anesthesia Type Anesthesia Type: General History Source History Obtained from:: Patient and Chart Anesthesia Focused Assessment* Temperature: 98.4 F Pulse Rate: 70 Blood Pressure: 117/69 Respiratory Rate: 16 Pulse Ox: 98 Oxygen Delivery Method: Room Air Airway Assessment Mouth opens: >3 cm Mallampati Score: II Teeth Condition: Intact and Chipped/Broken (bottom front tooth slightly chipped) Labs Anesthesia Preop lab: CBC WBC 7.7 K/mm3 (4.4-11.0) 09/11/24 09:44 09/11/24 RBC 4.73 M/mm3 (4.2-5.4) 09/11/24 09:44 09/11/24 Hgb 13.4 g/dL (12.0-15.0) 09/11/24 09:44 09/11/24 Hct 40.9 % (37-47) 09/11/24 09:44 09/11/24 Plt Count 272 K/mm3 (150-450) 09/11/24 09:44 09/11/24 CHEMISTRY Potassium 4.1 mmol/L (3.5-5.1) 12/30/23 09:46 12/30/23 Sodium 137 mmol/L (136-145) 12/30/23 09:46 12/30/23 BUN 9 mg/dL (7-18) 12/30/23 09:46 12/30/23 Creatinine 0.65 mg/dL (0.55-1.02) 12/30/23 09:46 12/30/23 Glucose 93 mg/dL (74-106) 12/30/23 09:46 12/30/23 POC Glucose 83 mg/dL (74-106) 07/14/24 08:39 07/14/24 TSH 3.240 uIU/mL (0.358-3.740) 12/30/23 09:46 12/30/23 COAG Urine Test Negative Negative 09/19/24 13:05 09/19/24 Pre-Assessment Diagnosis/Proposed Procedure Planned Operative Procedure(s): LAPAROSCOPIC SALPINGECTOMY CHARLES Anesthesia History Anesthesia History - veterinarian small animal: Anesthesia History - veterinarian small animal Hx Hospitalization No 09/05/24 15:18 Any Problems With Anesthesia No 09/05/24 15:18 Cholinesterase deficiency No 09/05/24 15:18 You/Your Family Experience No 09/05/24 15:18 fever (hyperthermia) with Relationship Recent Exposure to Contagious No 09/19/24 13:20 Disease Does patient have nerve No 09/05/24 15:18 stimulator Patient instructed to have device shut off --Does patient have Pacemaker No 09/19/24 13:20 or ICD? When Was Last Pacemaker Check QUESTION #4 FULL TEXT: You/Your Family Experience fever (hyperthermia) with Anesthesia Last Oral Intake Last Oral intake: Last Oral Intake NPO since 09:00 09/19/24 13:20 Meds taken in AM with sips of No 09/19/24 13:20 water? Meds patient instructed to take am of surgery Any additional information?: Yes Meds patient instructed to take am of surgery: clear liquid at 9am today, last food last night before 10pm PONV PONV - veterinarian small animal: PONV - veterinarian small animal Female Yes 09/05/24 15:18 HX of Motion Sickness No 09/05/24 15:18 HX of N/V After Surgery No 09/05/24 15:18 Non-Smoker Yes 09/05/24 15:18 Duration of Surgery greater Yes 09/05/24 15:18 than 60 minutes Number of Risk Factors 3 09/05/24 15:18 PONV Score Moderate Risk 09/05/24 15:18 Height & Weight Height & Weight: Anesthesia: Height & Weight Height 5 ft 4 in 09/19/24 13:20 Weight: 113 kg 09/19/24 13:20 Body Mass Index (BMI) 42.7 09/19/24 13:20 Respiratory Assessment Respiratory Assessment - veterinarian small animal: Respiratory Tract Infection Hx - veterinarian small animal Hx Respiratory Tract Infection No 09/05/24 15:18 STOP Sleep Apnea STOP Sleep Apnea - veterinarian small animal: STOP Sleep Apnea - veterinarian small animal Hx Hypertension No 09/05/24 15:18 Hx Sleep Apnea No 09/05/24 15:18 CPAP BIPAP Do you snore loudly (louder No 09/05/24 15:18 than talking or can be heard Do you often feel tired/ No 09/05/24 15:18 fatigued/ sleepy during daytime? Has anyone observed you stop No 09/05/24 15:18 breathing during sleep? STOP Results Negative 09/05/24 15:18 QUESTION #5 FULL TEXT : Do you snore loudly (louder than talking or can be heard through closed doors)? 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 Specify any problems Hx of Preganancy in last 3 No 09/05/24 15:18 Months Nurse Filling Out Transfusion [email or web address] 09/05/24 15:18 & Questions: Date: 09/05/24 09/05/24 15:18 Time: 15:21 09/05/24 15:18 Patient unable to answer at this time (ie. confused, unrespo /Reproduction History /Reproductive History - veterinarian small animal: /Reproductive Hx- veterinarian small animal Hx Now No 09/05/24 15:18 Gestational Age (in weeks): EDC: Hx Hx Para Hx Section SAB Yes 09/05/24 15:18 Active Medications Active Medications: Current Medications Generic Name Dose Route Start Last Admin Trade Name Freq PRN Reason Stop Dose Admin Lactated Ringer's 1,000 mls @ 999 mls/hr 09/19/24 14:30 09/19/24 13:34 IV 09/19/24 15:30 999 mls/hr .Q1H1M DUY Administration Lactated Ringer's 1,000 mls @ 15 mls/hr 09/19/24 13:15 IV .Q48H DUY PFSH Medical History Gestational diabetes History of pulmonary embolism Depression Psoriasis Seasonal allergies 39 weeks gestation of Home Medications ?Medication ?Instructions ?Recorded ?Last Taken ?Type vits,calcium no.78-iron 1 tab PO DAILY 04/18/15 07/12/24 History fumarate-folic acid 29 mg-1 mg tablet (Prenatabs FA) lactobacillus combination no.4 3 3,000 mmu cells PO QDAY 08/24/24 Unknown History billion cell capsule (Probiotic) Allergy/AdvReac Type Severity Reaction Status Date / Time mushroom Allergy Swelling Verified 09/05/24 15:16 adhesive tape AdvReac RASH Verified 09/05/24 15:24 Family History Mother Heart disease Hypothyroidism Grandmother , great-grandma Breast cancer Social History (Updated 08/24/24 @ 11:34 by Hilary Boyle) adopted: No household members: spouse and children number of children: 3 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 current occupational exposures/hazards: No pets and animals: Yes (Not taking care litter box) pets and animals: cat(s) history of recent travel: Yes ([place] in Nov 2023) out of state: Yes out of country: No sexually active: Yes Smoking Status: Former smoker alcohol intake: never substance use type: does not use diet: other well-balanced diet: daily or most days caffeine: Yes eating out: 1-3 times/week during the past year weight has: other details: Lost 30lbs on [place], has gain about 15lbs back what type of physical activity do you participate in: walking frequency: 3-4 times per week duration: < 15 minutes/day angela/restoration: None seatbelt use: always do you feel safe at home: Yes additional 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 Physical Exam Const alert and oriented x3 Neck full ROM Resp normal respiratory effort, normal air movement and clear to auscultation bilaterally Cardio regular rate and regular rhythm Extremity full ROM
--- NOTE | 2024-09-19 14:30 | FALS_PTH ---
PATIENT: YUSRA FUENTES [place] [facility] [id number] AGE/SX: 29/F ROOM: RE09/19/[address]: Dr. Stephanie Mtz MD : 1995 BED: DIS: 09/19/2024 SPEC #: [id number] RECD: 09/19/24 15:37 STATUS: ECHO REMukund #: [id number] ROBERT: 09/19/24 14:[address]: Stephanie Mtz DEPT: SURGICAL PATHOLOGY RECD BY: Parvez Bradley ENTERED: 09/20/24 10:37 SP TYPE: FALL TUBES OTHR DR: Nancy Hill, DREA-Corrine Tissues: A - Fallopian tube Procedures: Surgery Specimen Level II HEADER OPERATION: Laparoscopic, bilateral salpingectomy PRE-OP DIAGNOSIS: Patient desires sterilization TISSUE SUBMITTED: A- Bilateral fallopian tubes MICROSCOPIC DIAGNOSIS A. Bilateral fallopian tubes, sterilization, bilateral salpingectomy: Unremarkable fallopian tubes. MICROSCOPIC DESCRIPTION Slides are reviewed. GROSS DESCRIPTION A. Received in formalin labeled with the patient's name and date of . Designated as bilateral fallopian tubes are 2 undesignated, red-purple fimbriated fallopian tubes measuring 4.4 x 0.7 cm and 6.2 x 0.4 cm. Few paratubal cysts are identified, <0.1 cm to 0.3 cm. Cover Maker sections are submitted in 2 cassettes. DC 09/20/2024 CPT:[id number]
--- NOTE | 2024-09-19 15:28 | PCM.POST.ANE ---
Anesthesia: Postop Eval I Current Vital Signs Temperature: 97 F Pulse Rate: 76 Blood Pressure: 136/73 Respiratory Rate: 16 Pulse Ox: 95 Oxygen Delivery Method: Room Air Assessment Airway patent: Yes Spontaneous unlabored respirations: Yes Mental status: Awake and Calm nausea: No Vomiting: No Anesthesia Complication: No Fluid Hydration Crystalloid volume administer (ml): 900 Total IV fluid infused: 900 Progress Note Anesthesia document: Postop Eval 1 completed: Yes
--- NOTE | 2024-09-19 15:54 | DCINST_ITS ---
Discharge Instructions Diet Discharge Diet: No restrictions DC O2, CPAP, BIPAP needs Home O2 Discharge instructions: No Dressing / Incision Discharge Activity: Return to Normal Activity, May Not Drive ( while taking narcotic pain meds, when pain free), May Shower and May Take a Tub Bath (in 7 days) May resume sexual activity in: 1 week Weight Bearing Status: Full weight bearing Dressing / Incision Call your doctor if your incision/area has: Continuous Slow Oozing, Sudden Increased Bleeding, Increased Pain/ Swelling, Increased Redness and Foul Smelling Discharge Call your doctor if you observe: Fever of 101 or Higher, Using more than 1 pad per hour, Shortness of breath, Chest pain and Uncontrolled pain Suture Line Care: Avoid Pulling/Pushing and Avoid Pinching/Bending Remove Dressing in: 1 week (if present) Cleanse incision/area with: Soap & Water and Keep Dressing Clean & Dry Follow Up Care When: Call to make an appointment with your doctor for a fu/incision check in 1- 2 weeks. Test Results: Test results from this visit will be discussed in further detail at your follow- up appointment, if applicable. Discharge Plan Admission Attending Provider: Stephanie Mtz Primary Care Provider: Nancy Hill Instructions Print Language: Thai Discharge Orders/Prescriptions Prescriptions: No Action Probiotic 3 billion cell capsule 3,000 mmu cells PO QDAY Rx Instructions: administer with a meal Prenatabs FA 1 TABLET tablet 1 tab PO DAILY Referrals / Follow Up: Nancy Hill, DITCHING MACHINE OPERATING ENGINEER-C [Primary Care Provider] - Disposition Disposition (needs filled in before D/C Order can be placed): Home, Self Care
--- NOTE | 2024-09-19 15:54 | OP.PCM_ITS ---
Problems Associated Problem List Diagnoses (1) Sterilization: Multi Select Codes Urinary/Genital Urinary/Genital CPT Codes: 34841 Laproscopic BS/O Operative Report (Standard) Operative Information Date of Procedure: 09/19/24 Pre-Operative Diagnosis: see problem list Post-Operative Diagnosis: same Surgery/Procedure Performed: laparoscopic bilateral salpingectomy radio maintainer: Yes Trip Rider: Enoch Alberto Tasks completed by surgical physician assistant: Opening & closing, Altering tissue and Insert Trochanter Additional catering assistant?: No Type of Anesthesia: General RN Documented Start/Stop Times: Operation Date: 09/19/24 14:30 Case Time Into Pre-Op 09/19/24 13:02 Anesthesia Start 09/19/24 14:23 Into Room 09/19/24 14:23 Out of Pre-Op 09/19/24 14:23 Procedure Start 09/19/24 14:51 Procedure End 09/19/24 15:10 Anesthesia End 09/19/24 15:15 Out of Room 09/19/24 15:15 Into Recovery 09/19/24 15:20 Out of Recovery 09/19/24 15:52 Into Phase II Recovery 09/19/24 15:53 Procedure Start Time: 14:51 Procedure Stop Time: 15:10 Select all DRAINS/GRAFTS/IMPLANTS that apply: None Estimated Blood Loss: 25 Specimen collected: Yes Description of specimen(s) removed: tubes Description of surgery: Patient was taken in the operating room and was placed under general anesthesia was prepped and draped in normal sterile fashion in the dorsal lithotomy position. Bladder was drained of clear urine and SCDs were on preoperatively. Uterus was sounded and a uterine manipulator was placed after dilating. Attention was then paid to the abdominal portion of the procedure and the umbilicus was elevated with towel clamps and injected with Marcaine and after a 5 mm incision was made and the Veress needle was entered into the abdomen confirmed to be intra-abdominal with a low opening pressure of less than 5 mmHg. Abdomen was insufflated with CO2 gas and a 5 mm optical trocar was placed under direct visualization. suprapubic 5 mm port was placed under direct visualization. Uterus was well visualized and upon inspection of the pelvis normal anatomy was seen, the bilateral tubes were removed in entirety without complication. Excellent hemostasis was noted in the pelvis. Liver and upper abdomen were visualized notably within normal limits and no other gross abnormalities were seen in the abdomen. All instruments removed from the abdomen after gas was desufflated. Port sites were closed with 3-0 Monocryl Steri's and op sites were applied. All instruments removed from the vagina and patient was awoken and taken recovery in stable condition. Surgical Findings: nl uterus tubes ovaries Complications Complications: No
--- NOTE | 2024-09-19 18:16 | POSTOPAN2_ITS ---
Anesthesia Postop Eval I Sum Postop Eval Completion status Anesthesia document: Postop Eval 1 completed: Yes Anesthesia Postop Eval I Summary Anesthesia Postop Eval I Summary: Anesthesia Postop Eval I: Assessment Summary Airway patent Yes 09/19/24 15:29 REHABILITATION THERAPIST.SHOF Spontaneous unlabored Yes 09/19/24 15:29 REHABILITATION THERAPIST.SHOF respirations Mental status Awake,Calm 09/19/24 15:29 REHABILITATION THERAPIST.SHOF nausea No 09/19/24 15:29 REHABILITATION THERAPIST.SHOF Vomiting No 09/19/24 15:29 REHABILITATION THERAPIST.SHOF Anesthesia Postop Eval I: Fluid Summary Crystalloid volume administer 900 09/19/24 15:29 REHABILITATION THERAPIST.SHOF (ml) Colloids volume administered ( ml) Blood Product volume administered (ml) Total IV fluid infused 900 09/19/24 15:29 REHABILITATION THERAPIST.SHOF Anesthesia Postop Eval I: Summary Notes Anesthesia Complication No 09/19/24 15:29 REHABILITATION THERAPIST.SHOF Anesthesia Complication Comment: Post-operative progress note Anesthesia: Postop Eval II Evaluation Mental status: Awake and Calm Pain Level: 5 nausea: No Vomiting: No Complications Anesthesia Complication: No
--- NOTE | 2024-09-19 18:16 | PCM.POSTANE2 ---
Anesthesia Postop Eval I Sum Postop Eval Completion status Anesthesia document: Postop Eval 1 completed: Yes Anesthesia Postop Eval I Summary Anesthesia Postop Eval I Summary: Anesthesia Postop Eval I: Assessment Summary Airway patent Yes 09/19/24 15:29 DEVELOPER RELATIONS MANAGER.SHOF Spontaneous unlabored Yes 09/19/24 15:29 DEVELOPER RELATIONS MANAGER.SHOF respirations Mental status Awake,Calm 09/19/24 15:29 DEVELOPER RELATIONS MANAGER.SHOF nausea No 09/19/24 15:29 DEVELOPER RELATIONS MANAGER.SHOF Vomiting No 09/19/24 15:29 DEVELOPER RELATIONS MANAGER.SHOF Anesthesia Postop Eval I: Fluid Summary Crystalloid volume administer 900 09/19/24 15:29 DEVELOPER RELATIONS MANAGER.SHOF (ml) Colloids volume administered ( ml) Blood Product volume administered (ml) Total IV fluid infused 900 09/19/24 15:29 DEVELOPER RELATIONS MANAGER.SHOF Anesthesia Postop Eval I: Summary Notes Anesthesia Complication No 09/19/24 15:29 DEVELOPER RELATIONS MANAGER.SHOF Anesthesia Complication Comment: Post-operative progress note Anesthesia: Postop Eval II Evaluation Mental status: Awake and Calm Pain Level: 5 nausea: No Vomiting: No Complications Anesthesia Complication: No
--- OUTSIDE RECORDS SUMMARY | 2024-09-19 22:25 | XMS RPT_ITS | CCD ---
Author Organization [facility] Care Team Providers Care Peanut Salter Name Role Phone Dillan Reese Unavailable Unavailable No Doctor Assigned, Nodr Unavailable Unavail able Nancy Sam Primary Care Provider Nancy Sam Primary Care Provider [phone] Dillan Reese Unavailable Nancy Sam Unavailable Unavailable Kamlesh Meehan Unavailable Liz GRULLON-Nancy GONZALES Primary Care Provider RAFI Meehan Attending Unavailable Nancy Bassett Primary Care Provider Nancy Bassett Primary Care Provider Nancy aBssett Primary Care Provid er NANCY SAM Primary [...] Provider Un available Santa Quintero Attending Provider Giovany HAND STONER-C, Santa Referring Provider [phone] Dr. Britany Davalos DO Attending Provider Bibi ROSENBERG, Dr. Brown Attending Provider Dr. Stephanie Mtz MD Referring Provider [phone] Sam HAND STONER-C, Nancy Primary Care Provider Ben Cespedes CNM, Lara Attending Provider [phone] Bibi ROSENBERG, Dr. Brown Other Provider [phone] Coy MCGILL, Lara Other Provider [phone] Care Physician, No Primary Primary Care Provider Unavailable Giovany HAND STONER-C, Santa Attending Provider [phone] Care Physician, No Primary Referring Provider Un available Sam HAND STONER-C, Nancy Referring Provider Unavailab mgean Cespedes CNM, Lara Referring Provider [phone] Care Physician, No Primary Primary Care Provider Unavailable [place] HAND STONER-C, Santa Attending Provider [phone] Giovany HAND STONER-C, Santa Referring Provider [phone] Bibi ROSENBERG, Dr. Brown Admit Provider [phone] Jesse MCGILL, Delisa Attending Provider [phone] REFERRED, SELF Referring Unavailable LUCIANO SANTOS Attending Unavailable Care Physician, No Primary Referring Provider Un available Sam HAND STONER-C, Nancy Primary Care Provider Ben Mtz MD, Dr. Brown Attending Provider Dr. Stephanie Mtz MD Referring Provider Dr. Britany Davalos DO Attending Provider Sam, Nancy Primary Care Unavailable Stephanie Mtz Referring Unavailable Stephanie Mtz Attending Unavailable Sam, Nancy Primary Care Unavailable Stephanie Mtz Attending Unavailable Stephanie Mtz Referring Unavailable Sam, Nancy Primary Care Unavailable Sam, Nancy Referring Unavailable Britany Davalos Attending Unavailabl e Sam, Nancy Primary Care Unavailable Lara Cespedes Referring Unavailable Lara Cespedes Attending Unavailable Sam, Nancy Primary Care Unavailable Stephanie Mtz Attending Unavailable Marcanthony, Stephanie Referring Unavailable Sam, Nancy Primary Care Unavailable Marcanthony, Stephanie Admitting Unavailable Marcanthony, Stephanie Attending Unavailable Marcanthony, Stephanie Referring Unavailable Sam, Nancy Primary Care Unavailable Lara Cespedes Attending Unavailable Marcanthony, Stephanie Consulting Unavailable Marcanthony, Stephanie Referring Unavailable [place] HAND STONER, Santa Referring Unavailable Giovany HAND STONER, Santa Attending Unavailable Care Physician, No Primary Primary Care Unava ilable Care Physician, No Primary Referring Unava ilable Marcanthony, Stephanie Attending Unavailable Care Physician, No Primary Primary Care Unava ilable Sam, Nancy Primary Care Unavailable Lara Cespedes Attending Unavailable Care Physician, No Primary Referring Unava ilable Sam, Nancy Primary Care Unavailable Lara Cespedes Attending Unavailable Care Physician, No Primary Referring Unava ilable Sam, Nancy Primary Care Unavailable Marcanthony, Stephanie Attending Unavailable Marcanthony, Stephanie Referring Unavailable Sam, Nancy Primary Care Unavailable Marcanthony, Stephanie Attending Unavailable Marcanthony, Stephanie Referring Unavailable Marcanthony, Stephanie Referring Unavailable Marcanthony, Stephanie Attending Unavailable Care Physician, No Primary Primary Care Unava ilable Sam, Nancy Primary Care Unavailable Giovany HAND STONER, Santa Referring Unavailable Giovany HAND STONER, Santa Attending Unavailable Sam, Nancy Primary Care Unavailable Marcanthony, Stephanie Referring Unavailable Marcanthony, Stephanie Attending Unavailable Lara Cespedes Referring Unavailable Lara Cespedes Attending Unavailable Care Physician, No Primary Primary Care Unava ilable Lara Cespedes Attending Unavailable Care Physician, No Primary Primary Care Unava ilable Care Physician, No Primary Referring Unava ilable Sam, Nancy Primary Care Unavailable Sam, Nancy Referring Unavailable Lara Cespedes Attending Unavailable Sam, Nancy Primary Care Unavailable Sam, Nancy Referring Unavailable Marcanthony, Stephanie Attending Unavailable Sam, Nancy Primary Care Unavailable Sam, Nancy Referring Unavailable Marcanthony, Stephanie Attending Unavailable Sam, Nancy Primary Care Unavailable Britany Davalos Attending Unavailabl e Care Physician, No Primary Referring Unava ilable Sam, Nancy Primary Care Unavailable Kyle Lizama Attending Unavailable Giovany HAND STONER, Santa Attending Unavailable Care Physician, No Primary Referring Unava ilable Care Physician, No Primary Primary Care Unava ilable Britany Davalos Attending Unavailabl e Care Physician, No Primary Referring Unava ilable Care Physician, No Primary Primary Care Unava ilable Care Physician, No Primary Referring Unava ilable Care Physician, No Primary Primary Care Unava ilable Marcanthony, Stephanie Attending Unavailable Sam, Nancy Primary Care Unavailable Marcanthony, Stephanie Consulting Unavailable Marcanthony, Stephanie Admitting Unavailable Delisa Molina Attending Unavailable Marcanthony, Stephanie Referring Unavailable Care Physician, No Primary Primary Care Unava ilable Sujey Hong Attending Unavailable Sam, Nancy Primary Care Unavailable Sam, Nancy Referring Unavailable Nina Hathaway, Britany Attending Unavailabl e Sam, Nancy Primary Care Unavailable Marcanthony, Stephanie Consulting Unavailable Marcanthony, Stephanie Referring Unavailable Marcanthony, Stephanie Attending Unavailable Coy, Lara Attending Unavailable Marcanthony, Stephanie Consulting Unavailable Sam, Nancy Primary Care Unavailable Marcanthony, Stephanie Referring Unavailable Lara Cespedes Consulting Unavailable Marcanthony, Stephanie Attending Unavailable Marcanthony, Stephanie Referring Unavailable Marcus Guillermo Attending Unavailable Care Physician, No Primary Primary Care Unava ilable Sam, Nancy Primary Care Unavailable Marcanthony, Stephanie Referring Unavailable Marcanthony, Stephanie Attending Unavailable Sam HAND STONER-C, Nancy Primary Care Provider Unavai lable Care Physician, No Primary Referring Provider Un available Lara Cespedes CNM Attending Provider Allergies Allergy Classification Reported Allergen(s) Allergy Type Date of Onset Reaction(s) Facility (12 sources) Amoxicillin; Translations: [AMOXICILLIN] Drug Allergy 8 [facility] (17 sources) cultivated mushroom extract Drug Allergy 8 [facility] (2 sources) Amoxicillin / Clavulanate Drug Allergy Hives/Urticaria, [facility] (2 sources) Mushroom (edible) Hives/Urticaria, [facility] (5 sources) tetanus toxoid vaccine, inactivated Drug Allergy 8 [facility] (4 sources) Mushroom Propensity to adverse reactions to drug 8 [facility] (4 sources) Tetanus vaccine Propensity to adverse reactions to drug 8 [facility] (2 sources) Mushroom (edible); Translations: [MUSHROOM] Propensity to adverse reactions to food (disorder) 4 [facility] 2 Repository (4 sources) TETANUS TOXOID, ADSORBED; Translations: [TETANUS TOXOID, ADSORBED] Propensity to adverse reactions to drug (disorder) 4 Palpitations [facility] 2 Repository (2 sources) Adhesive Tape Drug allergy (disorder) 5 RASH [facility] Repository Comment on above: BANDAIDS Medications Current Medications Medication Drug Class(es) Dates Sig (Normalized) Sig (Original) acetaminophen 325 mg / oxyCODONE hydrochloride 5 mg oral tablet (1 source) Opioid Agonist Start: 09-19-2024 take 1 tablet by mouth every four hours as needed for pain Oxycodone-Acetamino phen (Percocet) 5-325 mg tablet Active 1 {tbl} PO Q4H as needed for pain 10 7 0 September 19, 2024 Status post surgical removal of both fallopian tubes Acquired absence of other genital organ(s) azithromycin 250 mg oral tablet (2 sources) [...] 2-5 6 tablet 0 04/26/2022 05/01/2022 Active cefdinir 300 mg oral capsule (1 source) [...] medi cation unless otherwise directed by prescriber. fexofenadine hydrochloride 180 mg oral tablet (1 [...] or discontinue unless directed by your doctor. Lactobacillus Combination No.4 (Probiotic) 3 billion cell capsule (3 sources) Start: 08-24-2024 take 3 capsules by mouth once daily Lactobacillus Combination No.4 (Probiotic) 3 billion cell capsule Active 3000 NMA PO daily August 24, 2024 12:00am administer with a meal naproxen 500 mg oral tablet (1 source) Nonsteroidal Anti-inflammatory Drug Start: 09-19-2024 take 1 tablet by mouth twice daily as needed for pain Naproxen 500 mg tablet Active 500 mg PO TWICE DAILY NEEDED as needed for Pain 30 September 19, 2024 12:00am PARAGARD INTRAUTERINE COPPER (2 sources) [...] of this medication.Take with food or milk. Vit,[id number] lic (Prenatabs Fa) 1 TABLET tablet (10 sources) Start: 04-18-2015 take 1 tablet by mouth once daily Vit,Ubiw32-Rolu-Fxc ic (Prenatabs Fa) 1 TABLET tablet Active 1 {tbl} PO DAILY April 18, 2015 1:00am Start: 04-18-2015 take 1 tablet by baljinder th once daily Vit,[id number]-Donwx (Prenatab s Fa) 1 TABLET tablet Active 1 {tbl} [...] Start: 09-16-2023 take 1 tablet by baljinder th once daily Rosuvastatin 5 MG tablet Indications: [...] solution Quantity: 0 Refills: 0 Ordered: 19-Mar-2022 aMriluz Han Generic Substitution Allowed Completed/Discontinued Medications Medication [...] capsule 0 06/01/2023 06/01/2023 Discontinued (Allergic response) aspirin 81 mg delayed release oral tablet (20 sources) Platelet Aggregation Inhibitor, Nonsteroidal Anti-inflammatory Drug Start: 01-25-2024 End: 08-24-2024 Aspirin (Adult Low Dose Aspirin) 81 mg tablet,delayed release (DR/EC) Discontinued 81 mg PO daily January 25, 2024 1:00am August 24, 2024 11:37am Start: 12-27-2018 End: 01-12-2019 take 81 mg by mouth once daily Aspirin Discontinued 81 mg PO DAILY December 27, 2018 12:00am January 12, 2019 8:56pm blood pressure Blood-Glucose Meter misc (10 sources) Start: 04-25-2024 End: 08-24-2024 Blood-Glucose Meter misc Dis continued 0 .MEDSUPPLY 1 0 April 25, 2024 1:00am August 24, 2024 11:37am As directed- Test fasting and 2 hours after meals Start: 04-25-2024 End: 08-24-2024 Blood-Glucose Meter misc Dis continued 0 .MEDSUPPLY 1 April 25, 2024 1:00am August 24, 2024 11:37am As directed- Test fasting and 2 hours after meals Start: 04-25-2024 Blood-Glucose Meter misc Active 0 .MEDSUPPLY 1 April 25, 2024 1:00am As directed- Test fasting and 2 hours after meals 24 hr buPROPion hydrochloride 150 mg extended release oral tablet (20 sources) Aminoketone Start: 10-18-2023 End: 01-25-2024 take [...] oral tablet (2 sources) Nonsteroidal Anti-inflammatory Drug Start: End: take 1 tablet by mouth twice daily diclofenac EC [address] tablet Indications: Acute right-sided low back pain, unspecified whether sciatica present Take 1 tablet by mouth 2 times daily. 60 tablet 0 06/16/2021 09/08/2021 Discontinued (Therapy completed) docusate sodium 100 mg oral capsule (12 sources) Start: End: take 2 capsules by mouth once daily as needed for constipation Docusate Sodium (Colace) 100 mg capsule Discontinued 200 mg PO daily as needed for constipation January 25, 2024 1:00am August 24, 2024 11:37am Start: 01-25-2024 take 1 capsule by mo [facility] once daily as needed Docusate Sodium (Colace) [...] ONCE, 1 dose, On Wed11/26/23 at 0300 Enoxaparin (Lovenox) 40 mg/0 .4 mL syringe (10 sources) Start: 12-30-2023 End: 02-28-2024 Enoxaparin (Lovenox) 40 mg/0 .4 mL syringe Discontinued 40 mg SC daily 06 27December 30, 2023 12:00am February 28, 2024 12:45pm History of pulmonary embolism Personal history of pulmonary embolism Start: 12-30-2023 End: 02-28-2024 Enoxaparin (Lovenox) 40 mg/0 .4 mL syringe Discontinued 40 mg SC daily December 30, 2023 12:00am February 28, 2024 12:45pm escitalopram 20 mg oral tablet (1 source) Serotonin Reuptake Inhibitor Start: 12-27-2017 End: 06-24-2018 take 1 tablet by mouth once daily escitalopram 20 MG Tab tablet Indications: Mood disorder of depressed type Take 1 tablet by mouth daily. 90 tablet 1 12/27/2017 06/24/2018 Discontinued 12 hr guaiFENesin 600 mg extended release oral tablet (10 sources) Start: 01-25-2024 End: 02-28-2024 take 1 tablet by mouth every twelve hours as needed, then take 1 tablet by mouth every twelve hours as needed Guaifenesin (Mucinex) 600 mg tablet extended release 12hr Discontinued 600 mg PO Q12H as needed January 25, 2024 1:00am February 28, 2024 12:45pm ibuprofen 600 mg oral tablet (10 sources) Nonsteroidal Anti-inflammatory Drug Start: 01-12-2019 End: 12-17-2023 take 1 tablet by mouth three times daily as needed for pain Ibuprofen 600 MG tablet Discontinued 600 mg PO THREE TIMES A DAY as needed for Pain Or Fever 30 0 January 12, 2019 8:55pm December 17, 2023 9:34am iohexol (OMNIPAQUE) 350 MG/ML injection 75 mL (1 source) Start: 11-26-2023 End: 11-26-2023 75 mL, Intravenous, ONCE, 1 dose, On Wed11/26/23 at 0215, Extravasation Risk, Radiology Procedure lisdexamfetamine dimesylate 70 mg oral capsule (1 source) Central Nervous System Stimulant Start: 05-15-2021 End: 06-16-2021 take 1 capsule by mouth once daily in the morning Lisdexamfetamine Dimesylate (Vyvanse) 70 MG capsule Indications: Binge eating Take 1 capsule by mouth daily every morning. 30 capsule 0 05/15/2021 06/16/2021 Discontinued (Ineffective) metFORMIN hydrochloride 500 mg oral tablet (9 sources) Biguanide Start: 06-12-2024 End: 08-24-2024 take 1 tablet by mouth at bedtime Metformin 500 mg tablet Discontinued 500 mg PO AT BEDTIME 30 6 June 12, 2024 12:00am August 24, 2024 11:37am metroNIDAZOLE (2 sources) Nitroimidazole Antimicrobial Start: 08-28-2024 End: 08-31-2024 Metronidazole 0.75 % (37.5mg/5 gram) gel Discontinued 1 NMA VAGINAL DAILY 70 3 0 August 28, 2024 12:00am August 30, 2024 12:00am August 31, 2024 12:10am Start: 08-28-2024 Metronidazole 0.75 % (37.5mg/5 gram) gel Active 1 NMA VAGINAL DAILY 70 3 August 28, 2024 12:00am August 30, 2024 12:00am nitrofurantoin, macrocrystals 25 mg / nitrofurantoin, monohydrate 75 mg oral capsule (1 source) Nitrofuran Antibacterial Start: 04-24-2023 End: 06-01-2023 take 1 capsule by mouth every twelve hours nitrofurantoin, macrocrystal-monohydrate, (Macrobid) 100 mg capsule Take 1 capsule by mouth every 12 hours for 5 days. 10 capsule 0 04/24/2023 06/01/2023 Discontinued (Med List Cleanup) Semaglutide-Weigh t Management (Wegovy) 0.5 MG/0.5ML Solution Auto-injector (1 source) Start: 08-12-2021 End: 09-08-2021 Semaglutide-Weight Management (Wegovy) 0.5 MG/0.5ML Solution Auto-injector Indications: Adult BMI 40.0-44.9 kg/sq m Inject 0.5 mg under the skin once a week. 4 mL 0 08/12/2021 09/08/2021 Discontinued (Dose adjustment (suppress cancel msg)) Semaglutide-Weigh t Management (Wegovy) 2.4 MG/0.75ML Solution Auto-injector (4 sources) Start: 05-22-2022 End: 09-13-2023 inject 2.4 mg by subcutaneous injection every [...] Translations: [Fever, unspecified] Onset: 11-25-2023 11-26-2023 Episodic Malaise and fatigue (6 sources) Fatigue; Translations: [Other fatigue] Onset: 09-13-2023 09-13-2023 Episodic Malposition; malpresentation (20 sources) Breech presentation; Translations: [Maternal care for [...] on above: PRR, , AUGUST 07/20, PC: Lora Avery Edison, : Itz Other complications of (20 sources) [...] screening of mother] Onset: 06-27-2024 Episodic Other female genital disorders (1 source) Other specified noninflammatory disorders of vagina; Translations: [Other specified noninflammatory disorders of vagina] Onset: 08-30-2024 Episodic Other gastrointestinal disorders (3 sources) Constipation; [...] 06-07-2020 Episodic Comment on above: had BPP /8. now 10/20 0 d/c home Other upper [...] above: on L ovary + Fibroid s Pulmonary heart disease (11 sources) H/O: pulmonary embolus; Translations: [Personal history [...] her factor V status. Residual codes; unclassified (2 sources) Insomnia, unspecified; Translations: [Insomnia, unspecified] Onset: 09-13-2023 Episodic Residual codes; unclassified (10 sources) Gestation period, 39 weeks; Translations: [39 [...] weeks gestation of ] Onset: 06-27-2024 Episodic Screening and history of mental health and substance abuse codes (20 sources) Ex-smoker; Translations: [Personal history of nicotine dependence] Onset: 06-30-2024 12-17-2023 Episodic Comment on above: Stopped 2 years ago Spondylosis; intervertebral disc disorders; other back problems (1 source) Acute low back pain; Translations: [Acute right-sided low back pain, unspecified whether sciatica present] Episodic Thyroid disorders (20 sources) Hypothyroidism; Translations: [Hypothyroidism, unspecified] Onset: 03-20-2024 [...] Other Problems Problem Classification Problem Date Documented Da te Episodic/Chronic Immunizations and screening for infectious disease (1 source) Encounter for immunization; Translations: [Encounter for immunization] Onset: 05-29-2024 Episodic Other complications of (1 source) Supervision of high risk , unspecified, unspecified trimester; Translations: [Supervision of high risk , unspecified, unspecified trimester] Onset: 04-06-2024 Episodic Other nutritional; endocrine; and metabolic disorders (5 sources) Polyphagia; Translations: [Polyphagia] Onset: 06-01-2023 06-01-2023 Episodic Residual codes; unclassified (9 sources) Insomnia; Translations: [Insomnia, unspecified] Onset: 12-04-2019 Resolved: 07-19-2020 07-19-2020 Episodic Residual codes; unclassified (1 source) 32 weeks gestation of ; Translations: [32 weeks gestation of ] Onset: 05-29-2024 Episodic Residual codes; unclassified (1 source) 30 [...] Test Name Value Interpretation Reference Range Facility Urine testOrdered By: Stephan Bhardwaj on 09-19-2024 HCG ( test) Ql (U) Negative [facility] Comment on above: Very dilute urine sp ecimens, as indicated by a low specificgravity, may not contain veterans service representative levels of hCG. If is still suspected, a first morning urinespecimen should be collected 48 hours later and tested. Absolute lymphocyte countOrd ered By: Stephanie Mtz on 09-11-2024 Lymphocytes Auto (Unsp spec) [#/Vol] 1.94 10*3/uL 0.83-4.51 [facility] Absolute neutrophil countOrd ered By: Stephanie Mtz on 09-11-2024 Neutrophils (Bld) [#/Vol] 4.9 10*3/uL 2.0-7.7 [facility] Automated lymphocyte count a s percentage of total leukocytesOrdered By: Stephanie Mtz on 09-11-2024 Lymphocytes/100 WBC Auto (Unsp spec) 25.2 % 19-41 [facility] Basophil percentageOrdered B y: Stephanie Mtz on 09-11-2024 Basophils/100 WBC (Bld) 0.4 % 0-1 [facility] CBC W/Diff, Automatedon 08-21 Absolute Lymph 1.94 X10 3/uL Normal 0.83-4.51 [facility] Comment on above: Performed By: #### L 501.0250, L509.8000, L3890.6005, L100.0100 #### [facility] [address] [place], [place], [address] Absolute Neut 4.9 X10 3/uL Normal 2.0-7.7 [facility] Comment on above: Performed By: #### L 501.0250, L509.8000, L3890.6005, L100.0100 #### [facility] [address] [place], [address] Basophils/100 WBC (Bld) 0.4 % Normal 0-1 [facility] Comment on above: Performed By: #### L 501.0250, L509.8000, L3890.6005, L100.0100 #### [facility] [address] [place], [address] Eosinophils/100 WBC (Bld) 2.2 % Normal 0-5 [facility] Comment on above: Performed By: #### L 501.0250, L509.8000, L3890.6005, L100.0100 #### [facility] [address] [place], [address] Erythrocyte distribution width (RBC) [Ratio] 13.7 % Normal 11.6-14.6 [facility] Comment on above: Performed By: #### L 501.0250, L509.8000, L3890.6005, L100.0100 #### [facility] [address] [place], [address] Hematocrit (Bld) [Volume fraction] 40.9 % Normal 37-47 [facility] Comment on above: Performed By: #### L 501.0250, L509.8000, L3890.6005, L100.0100 #### [facility] [address] [place], [address] Hemoglobin (Bld) [Mass/Vol] 13.4 g/dL Normal 12.0-15.0 [facility] Comment on above: Performed By: #### L 501.0250, L509.8000, L3890.6005, L100.0100 #### [facility] [address] [place], [address] IG% 0.400 Normal 0.0-0.9 [facility] Comment on above: Result Comment: IG% - Immature Granulocytes (promyelocytes, myelocytes and metamyelocytes) > 1% indicates that a LEFT SHIFT is Present. Performed By: #### L 501.0250, L509.8000, L3890.6005, L100.0100 #### [facility] [address] [place], [address] Lymphocytes/100 WBC (Bld) 25.2 % Normal 19-41 [facility] Comment on above: Performed By: #### L 501.0250, L509.8000, L3890.6005, L100.0100 #### [facility] [address] [place], [address] MCH (RBC) [Entitic mass] 28.3 pg Normal 27.0-32.0 [facility] Comment on above: Performed By: #### L 501.0250, L509.8000, L3890.6005, L100.0100 #### [facility] [address] [place], [address] MCHC (RBC) [Mass/Vol] 32.8 g/dL Normal 32-36 [facility] Comment on above: Performed By: #### L 501.0250, L509.8000, L3890.6005, L100.0100 #### [facility] [address] [place], [address] MCV (RBC) [Entitic vol] 86.5 fL Normal 81-99 [facility] Comment on above: Performed By: #### L 501.0250, L509.8000, L3890.6005, L100.0100 #### [facility] [address] [place], [address] Monocytes/100 WBC (Bld) 7.8 % Normal 0-10 [facility] Comment on above: Performed By: #### L 501.0250, L509.8000, [id number], L100.0100 #### [facility] [address] [place], [address] Neutrophils/100 WBC (Bld) 64.0 % Normal 47-70 [facility] Comment on above: Performed By: #### L 501.0250, L509.8000, L3890.6005, L100.0100 #### [facility] [address] [place], [address] Nucleated RBC (Bld) [#/Vol] 0 10*3/uL Normal 0-5 [facility] Comment on above: Performed By: #### L 501.0250, L509.8000, [id number], L100.0100 #### [facility] [address] [place], [address] Platelet mean volume (Bld) [Entitic vol] 10.3 fL Normal 6.2-12.0 [facility] Comment on above: Performed By: #### L 501.0250, L509.8000, L3890.6005, L100.0100 #### [facility] [address] [place], [address] Platelets (Bld) [#/Vol] 272 10*3/uL Normal 150-450 [facility] Comment on above: Performed By: #### L 501.0250, L509.8000, [id number], L100.0100 #### [facility] [address] [place], [address] RBC (Bld) [#/Vol] 4.73 10*6/uL Normal 4.2-5.4 [facility] Comment on above: Performed By: #### L 501.0250, L509.8000, [id number], L100.0100 #### [facility] [address] [place], [address] RDW SD 43.5 fl Normal 35.1-43.9 [facility] Comment on above: Performed By: #### L 501.0250, L509.8000, [id number], L100.0100 #### [facility] [address] [place], [address] WBC (Bld) [#/Vol] 7.7 10*3/uL Normal 4.4-11.0 [facility] Comment on above: Performed By: #### L 501.0250, L509.8000, [id number], L100.0100 #### [facility] [address] [place], [address] Eosinophil percentageOrdered By: Stephanie Mtz on 09-11-2024 Eosinophils/100 WBC (Bld) 2.2 % 0-5 [facility] Erythrocyte distribution wid th ratioOrdered By: Stephanie Mtz on 09-11-2024 Erythrocyte distribution width (RBC) [Ratio] 13.7 % 11.6-14.6 [facility] Erythrocyte distribution wid th standard deviationOrdered By: Stephanie Mtz on 09-11-2024 Erythrocyte distribution width (RBC) [Ratio] 43.5 fl 35.1-43.9 [facility] Hematocrit Auto (Bld) [Volum e fraction]Ordered By: Stephanie Mtz on 09-11-2024 Hematocrit (Bld) [Volume fraction] 40.9 % 37-47 [facility] Hemoglobin measurementOrdere d By: Stephanie Mtz on 09-11-2024 Hemoglobin (Bld) [Mass/Vol] 13.4 g/dL 12.0-15.0 [facility] Immature granulocytes/100 WB C Auto (Bld)Ordered By: Stephanie Mtz on 09-11-2024 Immature granulocytes/100 WBC (Bld) 0.400 % 0.0-0.9 [facility] Comment on above: IG% - Immature Granu locytes (promyelocytes, myelocytes and metamyelocytes) > 1% indicates that a LEFT SHIFT is Present. MCV (mean corpuscular volume ) determinationOrdered By: Stephanie Mtz on 09-11-2024 MCV (RBC) [Entitic vol] 86.5 fL 81-99 [facility] Mean corpuscular hemoglobin (MCH) determinationOrdered By: Stephanie Mtz on 09-11-2024 MCH (RBC) [Entitic mass] 28.3 pg 27.0-32.0 [facility] Mean corpuscular hemoglobin concentration (MCHC) determinationOrdered By: Stephanie Mtz on 09-11-2024 MCHC (RBC) [Mass/Vol] 32.8 g/dL 32-36 [facility] Mean platelet volume determi nationOrdered By: Stephanie Mtz on 09-11-2024 Platelet mean volume (Bld) [Entitic vol] 10.3 fL 6.2-12.0 [facility] Monocyte percentageOrdered B y: Stephanie Mtz on 09-11-2024 Monocytes/100 WBC (Bld) 7.8 % 0-10 [facility] Neutrophil percentageOrdered By: Stephanie Mtz on 09-11-2024 Neutrophils/100 WBC (Bld) 64.0 % 47-70 [facility] Nucleated red blood cell per centageOrdered By: Stephanie Mtz on 09-11-2024 Nucleated RBC/100 WBC (Bld) [Ratio] 0 % 0-5 [facility] Platelet countOrdered By: Yoselin Mtz on 09-11-2024 Platelets (Bld) [#/Vol] 272 10*3/uL 150-450 [facility] RBC Auto (Bld) [#/Vol]Ordere d By: Stephanie Mtz on 09-11-2024 RBC (Bld) [#/Vol] 4.73 10*6/uL 4.2-5.4 [facility] Type AND Screen - PAT ONLYon 09-11-2024 Ab SCREEN GEL Negative Normal [facility] Comment on above: Order Comment: Reaso n for Laboratory Test [id number] SALPINGECTOMY Performed By: #### L 501.0250, L509.8000, L3890.6005, L100.0100 #### [facility] [address] [place], [place], [id number] White blood cell (WBC) count Ordered By: Stephanie Mtz on 09-11-2024 WBC (Bld) [#/Vol] 7.7 10*3/uL 4.4-11.0 [facility] Genital Culture Comprehensiv caron 08-25-2024 VAC Reason for Exam: vaginal odor Normal vaginal yunior isolated. No yeast, Gardnerella, Neisseria or beta-hemolytic Streptococcus isolated. Normal [facility] Comment on above: Performed By: #### L 501.080 #### [facility] [address] [place], [place], [id number] Genital cultureOrdered By: Tenzin Mtz on 08-24-2024 Source specific culture Neisseria or beta-hemolytic Streptococcus isolated. [facility] Gram Stainon 08-24-2024 GS Reason for Exam: vaginal odor Gram Stain 2+ Gram positive cocci 3+ Gram variable heriberto 1+ Gram positive rods No Gram negative diplococci Score = 6 Interpretation: 0-3 Normal, 4-6 Intermediate, 7-10 Positive BV Normal [facility] Comment on above: Performed By: #### L 501.080 #### [facility] [address] [place], [place], [id number] Gram stainOrdered By: Stephanie Mtz on 08-24-2024 Microscopic observation Gram stain Nom (Unsp spec) [facility] Toll Ticket Clerk Office Visit Reporton 08-24-2024 Toll Ticket Clerk Office Visit Report [facility] [address], [address] [place] [address] OFFICE VISIT Date of Service: 08/24/24 MR#: [id number] Acct: [id number] Name: YUSRA FUENTES Rep #: [id number] : 1995 Provider: Dr. 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 Is patient in pain?: No Allergies mushroom Allergy (Verified 08/24/24 11:29) Swelling Medications ???Medication ???Instructions ???Recorded ???Confirmed ???Type vits,calcium no.78-iron 1 tab PO DAILY 04/18/15 08/24/24 History fumarate-folic acid 29 mg-1 mg tablet (Prenatabs FA) lactobacillus combination no.4 3 3,000 mmu cells PO QDAY 08/24/24 0 08/24/24 History billion cell capsule (Probiotic) : Yes PFSH Medical History Gestational diabetes History of pulmonary embolism Depression Psoriasis Seasonal allergies 39 weeks gestation of Family History Mother Heart disease Hypothyroidism Grandmother , great-grandma Breast cancer Social History (Updated 08/24/24 @ 11:34 by Hilary Boyle) adopted: No household members: spouse and children number of children: 3 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 Date Name GA/Weeks Outcome Route Bth Weight Infant Gen Labor Lgth Anesthesia Del Locatn Provider FOB Unknown Chemical - 2018 04/06/15 Braxten 38 live - full term 8lbs 14oz Male 36 epidural [facility] Summer Svetlana Itz 01/12/19 [place] 39 live - full term 9lbs 4oz Male 8 epidural [facility] S [facility]er Svetlana Itz 07/13/24 [place] 39 live - full term 8lbs 11oz Female epidural [facility] SM Itz Delivery Date: 04/06/15 Last Updated by: Sujey Hong RN Gained 60lbs, Induced d/t early pre-e Delivery Date: 01/12/19 Last Updated by: Sujey Hong RN Induction d/t size Delivery Date: 07/13/24 Last Updated by: Sujey Hong RN See problem list for complications, and IOL SM GDM 39 Depression Screen PHQ-2/9 PHQ-2 Over the last 2 weeks, how often have you been bothered by any of the following problems? 1. Little interest or pleasure in doing things: not at all 2. Feeling down, depressed, or hopeless: not at all Total score: 0 Post HPI Routine Follow-Up: Details: YUSRA FUENTES is a 29 year old who presents for her post visit. ROS Const Reports system reviewed and no additional complaints, except as documented GI Reports system reviewed and no additional complaints, except as documented, Denies bloating, Denies constipation, Denies nausea and Denies vomiting Reports system reviewed and no additional complaints, except as documented, Denies abnormal vaginal bleeding, Denies pelvic pain, Denies sexual dysfunction, Denies urinary incontinence, Denies urinary hesitancy, Denies urinary urgency and Denies vaginal discharge Skin/Breast Reports system reviewed and no additional complaints, except as documented and Reports as per HPI Psych Reports as per HPI Exam Const General: cooperative, healthy appearing, comfortable and no acute distress HENMT Head: normal to inspection Neck Neck: normal visual inspection and no lymphadenopathy Thyroid: thyroid normal Chest Breast inspection: normal inspection of the breasts and normal inspection of the axillae Breast palpation: normal palpation of the breasts and normal palpation of the axillae Resp (more content not included)... Normal [facility] Bedside Glucoseon 07-14-2024 FINGERSTICK GLU 83 mg/dL Normal 74-106 [facility] Comment on above: Result Comment: LORI GEMENT OF PATIENT CARE PER NURSING PROTOCOL Performed By: #### L 501.0250, L509.8000, L3890.6005, L100.0100 #### [facility] [address] [facility] [address] [facility] deOrdered By: Stephanie Mtz on 07-14-2024 Bedside Glucose (Misc Panel) 83 mg/dL [facility] Comment on above: MANAGEMENT OF PATIEN T CARE PER NURSING PROTOCOL Glucose [Mass/Vol] 83 mg/dL [facility] Comment on above: MANAGEMENT OF PATIEN T CARE PER NURSING PROTOCOL Absolute lymphocyte countOrd ered By: Stephanie Mtz on 07-13-2024 Lymphocytes Auto (Unsp spec) [#/Vol] 1.50 10*3/uL 0.83-4.51 [facility] Absolute neutrophil countOrd ered By: Stephanie Mtz on 07-13-2024 Neutrophils (Bld) [#/Vol] 6.1 10*3/uL 2.0-7.7 [facility] Automated lymphocyte count a s percentage of total leukocytesOrdered By: Stephanie Mtz on 07-13-2024 Lymphocytes/100 WBC Auto (Unsp spec) 17.8 % Low 19-41 [facility] Basophil percentageOrdered B y: Stephanie Mtz on 07-13-2024 Basophils/100 WBC (Bld) 0.2 % 0-1 [facility] Bedside Glucoseon 07-13-2024 FINGERSTICK GLU 91 mg/dL Normal -106 [facility] Comment on above: Result Comment: LORI GEMENT OF PATIENT CARE PER NURSING PROTOCOL Performed By: #### L 501.080 ####[facility] [address] [place], [address] FINGERSTICK GLU 69 mg/dL Low 74-106 [facility] Comment on above: Result Comment: LORI GEMENT OF PATIENT CARE PER NURSING PROTOCOL Performed By: #### L 501.080 ####[facility] [address] [place], [address] FINGERSTICK GLU 71 mg/dL Low 74-106 [facility] Comment on above: Result Comment: LORI GEMENT OF PATIENT CARE PER NURSING PROTOCOL Performed By: #### L 501.080 ####[facility] [address] [place], [address] FINGERSTICK GLU 70 mg/dL Low 74-106 [facility] Comment on above: Result Comment: LORI GEMENT OF PATIENT CARE PER NURSING PROTOCOL Performed By: #### L 501.080 #### [facility] [address] [place], [address] FINGERSTICK GLU 93 mg/dL Normal 74-106 [facility] Comment on above: Result Comment: LORI GEMENT OF PATIENT CARE PER NURSING PROTOCOL Performed By: #### L 501.080 ####[facility] [address] [place], [address] FINGERSTICK GLU 76 mg/dL Normal 74-106 [facility] Comment on above: Result Comment: LORI GEMENT OF PATIENT CARE PER NURSING PROTOCOL Performed By: #### L 501.0250, L509.8000, L3890.6005, L100.0100 #### [facility] [address] [place], [address] FINGERSTICK GLU 64 mg/dL Low 74-106 [facility] Comment on above: Result Comment: LORI GEMENT OF PATIENT CARE PER NURSING PROTOCOL Performed By: #### L 501.080 #### [facility] [address] [place], [address] FINGERSTICK GLU 107 mg/dL High 74-106 [facility] Comment on above: Result Comment: LORI GEMENT OF PATIENT CARE PER NURSING PROTOCOL Performed By: #### L 501.0250, L509.8000, L3890.6005, L100.0100 #### [facility] [address] [place], [address] FINGERSTICK GLU 80 mg/dL Normal 74-106 [facility] Comment on above: Result Comment: LORI GEMENT OF PATIENT CARE PER NURSING PROTOCOL Performed By: #### L 501.080 #### [facility] [address] [place], [address] FINGERSTICK GLU 81 mg/dL Normal 74-106 [facility] Comment on above: Result Comment: LORI GEMENT OF PATIENT CARE PER NURSING PROTOCOL Performed By: #### L 501.080 #### [facility] [address] [place], [address] FINGERSTICK GLU 88 mg/dL Normal 74-106 [facility] Comment on above: Result Comment: LORI GEMENT OF PATIENT CARE PER NURSING PROTOCOL Performed By: #### L 501.080 #### [facility] [address] [place], [address] FINGERSTICK GLU 84 mg/dL Normal 74-106 [facility] Comment on above: Result Comment: LORI GEMENT OF PATIENT CARE PER NURSING PROTOCOL Performed By: #### L 501.0250, L509.8000, L3890.6005, L100.0100 #### [facility] [address] [place], [address] CBC W/Diff, Automatedon 04-2 Absolute Lymph 1.50 X10 3/uL Normal 0.83-4.51 [facility] Comment on above: Performed By: #### L 501.0250, L509.8000, L3890.6005, L100.0100 #### [facility] [address] [place], [address] Absolute Neut 6.1 X10 3/uL Normal 2.0-7.7 [facility] Comment on above: Performed By: #### L 501.0250, L509.8000, L3890.6005, L100.0100 #### [facility] [address] [place], [address] Basophils/100 WBC (Bld) 0.2 % Normal 0-1 [facility] Comment on above: Performed By: #### L 501.0250, L509.8000, L3890.6005, L100.0100 #### [facility] [address] [place], [address] Eosinophils/100 WBC (Bld) 1.1 % Normal 0-5 [facility] Comment on above: Performed By: #### L 501.0250, L509.8000, L3890.6005, L100.0100 #### [facility] [address] [place], [address] Erythrocyte distribution width (RBC) [Ratio] 13.0 % Normal 11.6-14.6 [facility] Comment on above: Performed By: #### L 501.0250, L509.8000, L3890.6005, L100.0100 #### [facility] [address] [place], [address] Hematocrit (Bld) [Volume fraction] 43.0 % Normal 37-47 [facility] Comment on above: Performed By: #### L 501.0250, L509.8000, L3890.6005, L100.0100 #### [facility] [address] [place], [address] Hemoglobin (Bld) [Mass/Vol] 14.3 g/dL Normal 12.0-15.0 [facility] Comment on above: Performed By: #### L 501.0250, L509.8000, L3890.6005, L100.0100 #### [facility] [address] [place], [address] IG% 0.500 Normal 0.0-0.9 [facility] Comment on above: Result Comment: IG% - Immature Granulocytes (promyelocytes, myelocytes and metamyelocytes) > 1% indicates that a LEFT SHIFT is Present. Performed By: #### L 501.0250, L509.8000, L3890.6005, L100.0100 #### [facility] [address] [place], [address] Lymphocytes/100 WBC (Bld) 17.8 % Low 19-41 [facility] Comment on above: Performed By: #### L 501.0250, L509.8000, L3890.6005, L100.0100 #### [facility] [address] [place], [address] MCH (RBC) [Entitic mass] 28.9 pg Normal 27.0-32.0 [facility] Comment on above: Performed By: #### L 501.0250, L509.8000, L3890.6005, L100.0100 #### [facility] [address] [place], [address] MCHC (RBC) [Mass/Vol] 33.3 g/dL Normal 32-36 [facility] Comment on above: Performed By: #### L 501.0250, L509.8000, L3890.6005, L100.0100 #### [facility] [address] [place], [address] MCV (RBC) [Entitic vol] 87.0 fL Normal 81-99 [facility] Comment on above: Performed By: #### L 501.0250, L509.8000, L3890.6005, L100.0100 #### [facility] [address] [place], [address] Monocytes/100 WBC (Bld) 8.4 % Normal 0-10 [facility] Comment on above: Performed By: #### L 501.0250, L509.8000, L3890.6005, L100.0100 #### [facility] [address] [place], [address] Neutrophils/100 WBC (Bld) 72.0 % High 47-70 [facility] Comment on above: Performed By: #### L 501.0250, L509.8000, L3890.6005, L100.0100 #### [facility] [address] [place], [address] Nucleated RBC (Bld) [#/Vol] 0 10*3/uL Normal 0-5 [facility] Comment on above: Performed By: #### L 501.0250, L509.8000, L3890.6005, L100.0100 #### [facility] [address] [place], [address] Platelet mean volume (Bld) [Entitic vol] 11.1 fL Normal 6.2-12.0 [facility] Comment on above: Performed By: #### L 501.0250, L509.8000, L3890.6005, L100.0100 #### [facility] [address] [place], [address] Platelets (Bld) [#/Vol] 276 10*3/uL Normal 150-450 [facility] Comment on above: Performed By: #### L 501.0250, L509.8000, L3890.6005, L100.0100 #### [facility] [address] [place], [address] RBC (Bld) [#/Vol] 4.94 10*6/uL Normal 4.2-5.4 [facility] Comment on above: Performed By: #### L 501.0250, L509.8000, L3890.6005, L100.0100 #### [facility] [address] [place], [address] RDW SD 40.8 fl Normal 35.1-43.9 [facility] Comment on above: Performed By: #### L 501.0250, L509.8000, L3890.6005, L100.0100 #### [facility] [address] [place], [address] WBC (Bld) [#/Vol] 8.4 10*3/uL Normal 4.4-11.0 [facility] Comment on above: Performed By: #### L 501.0250, L509.8000, L3890.6005, L100.0100 #### [facility] [address] [place], [address] PLT EST ADEQUATE Normal ADEQ [facility] Comment on above: Performed By: #### L 100.0100, BTS ####[facility] [address] [place], [address] Discharge Instructionon - Discharge Instruction [facility] Medical Records Department [address] [place] [address] Instructions for Home/Discharge Instructions 07/13/242126 MR#: [id number] Acct: [id number] Name: YUSRA FUENTES Rep #: [id number] : 1995 29 From: Stephanie Mtz MD [...] Up With: Stephanie Mtz MD When: Call [phone] to make an appointment with your doctor [...] meals Referrals / Follow Up: Nancy Sam, HAND STONER-C [Primary Care Provider] - Disposition Disposition (needs filled in before D/C Order can be placed): Home, Self Care 07/13/242133 Stephanie Mtz MD CC: HAND STONER-C Nancy Sam Signed Normal [facility] Eosinophil percentageOrdered By: Stephanie Mtz on 07-13-2024 Eosinophils/100 WBC (Bld) 1.1 % 0-5 [facility] Erythrocyte distribution wid th (RBC) [Ratio]Ordered By: Stephanie Mtz on 07-13-2024 Erythrocyte distribution width (RBC) [Entitic vol] 40.8 fL 35.1-43.9 [facility] Erythrocyte distribution wid th ratioOrdered By: Stephanie Mtz on 07-13-2024 Erythrocyte distribution width (RBC) [Ratio] 13.0 % 11.6-14.6 [facility] Erythrocyte distribution wid th standard deviationOrdered By: Stephanie Mtz on 07-13-2024 Erythrocyte distribution width (RBC) [Ratio] 40.8 fl 35.1-43.9 [facility] H AND P Exam - OB/GYNon 06-21 H&P 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 - 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 [facility] Medical Records Department [address] [place] [address] H P Exam - 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 07/13/24820 MR#: [id number] Acct: [id number] Name: YUSRA FUENTES Rep #: [id number] : 1995 29 From: Stephanie Mtz MD PCP: KULDIP Marroquin Status:ADM IN [facility] HPI - General General Date of Admission: [...] children number of children: 2 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 Date Name GA/Weeks Outcome Route Bth Weight Gen Labor Lgth Anesthesia Del Locatn Provider FOB Unknown Chemical - 2018 04/06/15 Bra[place]en 38 live - full term 8lbs 14oz Male 36 epidural [facility] Summer Svetlana Mobley 01/12/19 [place] 39 live - full term 9lbs 4oz Male 8 epidural [facility] S [facility] Svetlana Mobley Delivery Date: 04/06/15 Last Updated [...] -???-???-???-???-??? -???-?? (more content not included)... Normal [facility] Hematocrit Auto (Bld) [Volum e fraction]Ordered By: Stephanie Mtz on 07-13-2024 Hematocrit (Bld) [Volume fraction] 43.0 % 37-47 [facility] Hemoglobin measurementOrdere d By: Stephanie Mtz on 07-13-2024 Hemoglobin (Bld) [Mass/Vol] 14.3 g/dL 12.0-15.0 [facility] Immature granulocytes/100 WB C Auto (Bld)Ordered By: Stephanie Mtz on 07-13-2024 Immature granulocytes/100 WBC (Bld) 0.500 % 0.0-0.9 [facility] Comment on above: IG% - Immature Granu locytes (promyelocytes, myelocytes and metamyelocytes) > 1% indicates that a LEFT SHIFT is Present. Lymphocytes Auto (Unsp spec) [#/Vol]Ordered By: Stephanie Mtz on 07-13-2024 Lymphocytes (Bld) [#/Vol] 1.50 10*3/uL 0.83-4.51 [facility] Lymphocytes/100 WBC Auto (Un sp spec)Ordered By: Stephanie Mtz on 07-13-2024 Lymphocytes/100 WBC (Bld) 17.8 % Low 19-41 [facility] MCV (mean corpuscular volume ) determinationOrdered By: Stephanie Mtz on 07-13-2024 MCV (RBC) [Entitic vol] 87.0 fL 81-99 [facility] MR/OB.VAGDELIon 07-13-2024 [facility] Medical Records Department [address] [place] [address] OB Vaginal Delivery 07/13/242124 MR#: [id number] Acct: [id number] Name: YUSRA FUENTES Rep #: [id number] : 1995 29 From: Stephanie Mtz MD PCP: Nancy Sam NP-C Status:ADM IN Location: [id number] Assessment Plan (1) Encounter for induction of [...] AUGUST 07/20/24, PC: Lora Hogan, : Itz (9) : QUALIFIERS: Weeks of [...] complication followed by the rest of the infant and the was placed on the maternal [...] collected: Yes Description of specimen(s) removed: placenta Lead Operator 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 Stephanie Mtz MD Signed Normal [facility] Mean corpuscular hemoglobin (MCH) determinationOrdered By: Stephanie Mtz on 07-13-2024 MCH (RBC) [Entitic mass] 28.9 pg 27.0-32.0 [facility] Mean corpuscular hemoglobin concentration (MCHC) determinationOrdered By: Stephanie Mtz on 07-13-2024 MCHC (RBC) [Mass/Vol] 33.3 g/dL 32-36 [facility] Mean platelet volume determi nationOrdered By: Stephanie Mtz on 07-13-2024 Platelet mean volume (Bld) [Entitic vol] 11.1 fL 6.2-12.0 [facility] Monocyte percentageOrdered B y: Stephanie Mtz on 07-13-2024 Monocytes/100 WBC (Bld) 8.4 % 0-10 [facility] Neutrophil percentageOrdered By: Stephanie Mtz on 07-13-2024 Neutrophils/100 WBC (Bld) 72.0 % High 47-70 [facility] Nucleated red blood cell per centageOrdered By: Stephanie Mtz on 07-13-2024 Nucleated RBC/100 WBC (Bld) [Ratio] 0 % 0-5 [facility] Platelet countOrdered By: Yoselin Mtz on 07-13-2024 Platelets (Bld) [#/Vol] 276 10*3/uL 150-450 [facility] Platelet estimateOrdered By: Stephanie Mtz on 07-13-2024 Platelets LM Ql (Bld) ADEQUATE ADEQ [facility] Platelets LM Ql (Bld)Ordered By: Stephanie Mtz on 07-13-2024 Platelet Estimate ADEQUATE [facility] RBC Auto (Bld) [#/Vol]Ordere d By: Stephanie Mtz on 07-13-2024 RBC (Bld) [#/Vol] 4.94 10*6/uL 4.2-5.4 [facility] Syphilis Antibodieson 2024 Syphilis Abs Non-Reactive Normal Nonreactive [facility] Comment on above: Performed By: #### L 501.080 #### [facility] Laboratory [facility] [place], [address] T. pallidum abOrdered By: Yoselin Mtz on 07-13-2024 Syphilis Total Antibody Non-Reactive Nonreactiv e [facility] Type AND Screenon 07-13-2024 ABO and Rh group Nom (Bld) Blood group AB Rh(D) positive Normal [facility] Comment on above: Order Comment: Labor Performed By: #### L 100.0100, BTS ####[facility] [id number] [place], [place], [address] White blood cell (WBC) count Ordered By: Stephanie Mtz on 07-13-2024 WBC (Bld) [#/Vol] 8.4 10*3/uL 4.4-11.0 [facility] Biophysical Prof W/O Non Str eson 07-10-2024 Biophysical Prof W/O Non Stres [facility] Imaging Services [address] [place], [place] [address] Biophysical Prof W/O Non Stres MR#: [id number] Acct: [id number] Name: YUSRA FUENTES Rep #: [id number] : 1995 F 29 From: Otis westbrook MD PCP: KULDIP Marroquin Status: REG CLI Study: Biophysical Prof W/O Non Stres Date of Exam: 0 07/10/24 Exam# [id number] Ordering Dr: Stephanie Mtz PROCEDURE: BIOPHYSICAL PROF [...] Stres IMPRESSION: Normal biophysical profile. Reading Location: [facility] CC: HAND STONER-Corrine Sam; Dr. Stephanie Mtz MD Hl7 Developer: Signed Normal [facility] Laboratory - Chemistry and C hemistry - challengeOrdered By: Stephanie Mtz on 07-07-2024 Glucose Ql (U) Negative [facility] Laboratory - UrinalysisOrder ed By: Stephanie Mtz on 07-07-2024 Protein Ql (U) Negative [facility] Toll Ticket Clerk Office Visit Reporton 07-07-2024 Toll Ticket Clerk Office Visit Report [facility]'s [address], [address] [place] [address] OFFICE VISIT Date of Service: 07/07/24 MR#: [id number] Acct: [id number] Name: YUSRA FUENTES Rep #: [id number] : 1995 Provider: Dr. 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 Date Name GA/Weeks Outcome Route Bth Weight Infant Gen Labor Lgth Anesthesia Del Locatn Provider FOB Unknown Chemical - 2018 04/06/15 Bra[place] 38 live - full term 8lbs 14oz Male 36 epidural [facility] Summer Svetlana Mobley 01/12/19 [place] 39 live - full term 9lbs 4oz Male 8 epidural [facility] S ummer Coral-Renan Mobley Delivery Date: 04/06/15 [...] 12/30/23 -???-???-?? (more content not included)... Normal [facility] Biophysical Prof W/O Non Str eson 07-03-2024 Biophysical Prof W/O Non Stres [facility] Imaging Services [address] [place] [address] Biophysical Prof W/O Non Stres MR#: [id number] Acct: [id number] Name: YUSRA FUENTES Rep #: [id number] : 1995 F 29 From: Audra lo MD PCP: Nancy Sam, HAND STONER-C Status: REG CLI Study: Biophysical Prof W/O Non Stres Date of Exam: 0 07/03/24 Exam# [id number] Ordering Dr: Stephanie Mtz PROCEDURE: BIOPHYSICAL PROF [...] profile score 8/8, normal values. Reading Location: [place] [address] CC: HAND STONER-C Nancy Sam; Dr. Stephanie Mtz MD Hl7 Developer: Signed Normal [facility] Toll Ticket Clerk Office Visit Reporton 06-30-2024 Toll Ticket Clerk Office Visit Report [facility] Women's [address], [address] [place] [address] OFFICE VISIT Date of Service: 06/30/24 MR#: [id number] Acct: [id number] Name: YUSRA FUENTES Rep #: [id number] : 1995 Provider: Dr. 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 Date Name GA/Weeks Outcome Route Bth Weight Gen Labor Lgth Anesthesia Del Locatn Provider FOB Unknown Chemical - 2018 04/06/15 Braxten 38 live - full term 8lbs 14oz Male 36 epidural [facility] Summer Coral-Renan Mobley 01/12/19 [place] 39 live - full term 9lbs 4oz Male 8 epidural [facility] S ummer Coral-Renan Mobley Delivery Date: 04/06/15 [...] Visit No (more content not included)... Normal [facility] Biophysical Prof W/O Non Str eson 06-27-2024 Biophysical Prof W/O Non Stres [facility] Imaging Services [address] [place], [place] [address] Biophysical Prof W/O Non Stres MR#: [id number] Acct: [id number] Name: YUSRA FUENTES Rep #: [id number] : 1995 F 29 From: Zeyad Agustin MD PCP: KULDIP Marroquin Status: REG CLI Study: Biophysical Prof W/O Non Stres Date of Exam: 0 06/27/24 Exam# [id number] Ordering Dr: Stephanie Mtz PROCEDURE: BIOPHYSICAL PROF [...] 4. Additional description as above. Reading Location: [facility] CC: DREA-C Nancy Sam; Dr. Stephanie Mtz MD Hl7 Developer: Signed Normal [facility] OB Limited With Biometricson 06-27-2024 OB Limited With Biometrics [facility] Imaging Services [address] [place] [address] OB Limited With Biometrics MR#: [id number] Acct: [id number] Name: YUSRA FUENTES Rep #: [id number] : 1995 F 29 From: León Gallo MD PCP: BE MarroquinC Status: [facility] CL Study: OB Limited With Biometrics Date of Exam: 06/27 Exam# [id number] Ordering Dr: Stephanie Mtz EXAM: OB LIMITED [...] 36 weeks 5 days * Reading Location: [facility] CC: KULDIP Sam; Dr. Stephanie Mtz MD Hl7 Developer: Signed Normal [facility] Rule out Beta Strep (Grp. B) on 06-25-2024 RENALDO Group B Beta Streptococcus is not isolated. Normal [facility] Comment on above: Performed By: #### M 514.7516 ####[facility] [address] [place], [address] Laboratory - Chemistry and C hemistry - challengeOrdered By: Lara Cespedes on 06-23-2024 Glucose Ql (U) Negative [facility] Laboratory - UrinalysisOrder ed By: Lara Cespedes on 06-23-2024 Protein Ql (U) Negative [facility] Toll Ticket Clerk Office Visit Reporton 06-23-2024 Toll Ticket Clerk Office Visit Report [facility]'s [address], [address] [place] [address] OFFICE VISIT Date of Service: 06/23/24 MR#: [id number] Acct: [id number] Name: YUSRA FUENTES Rep #: [id number] : 1995 Provider: ARTEM Albert ams Age/Sex: 29/F Location: [facility] Status: Signed Intake Vital Signs 06/12/24 09:24 06/19/24 13:56 06/23/24 08:58 Height 5 ft 4 in 5 ft 4 in 5 ft 4 in Weight: 273 lb BMI 46.8 BP 134/79 H Intake Visit Reasons: 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 Date Name GA/Weeks Outcome Route Bth Weight Gen Labor Lgth Anesthesia Del Locatn Provider FOB Unknown Chemical - 2018 04/06/15 Braxten 38 live - full term 8lbs 14oz Male 36 epidural [facility] Summer Coral-Renan Itz 01/12/19 [place] 39 live - full term 9lbs 4oz Male 8 epidural [facility] S [facility] [place]-Renan Itz Delivery Date: 04/06/15 Last Updated [...] lb 2 (more content not included)... Normal [facility] Screening beta-hemolytic Str eptococcus cultureOrdered By: Lara Cespedes on 06-23-2024 Beta-hemolytic Streptococcus culture Group B Beta Streptococcus is not isolated. [facility] Group B Streptococcus Culture Group B Beta Streptococcus is not isolated. [facility] Biophysical Prof W/O Willow Powell eson 06-19-2024 Biophysical Prof W/O Willow James [facility] Imaging Services [address] [place] [address] Biophysical Prof W/O Willow James MR#: [id number] Acct: [id number] Name: YUSRA FUENTES Rep #: [id number] : 1995 F 29 From: Otis westbrook MD PCP: KULDIP Marroquin Status: REG CLI Study: Biophysical Prof W/O Non Stres Date of Exam: 0 06/19/24 Exam# [id number] Ordering Dr: Stephanie Mtz PROCEDURE: BIOPHYSICAL PROF [...] IMPRESSION: Biophysical profile score: 6/8. Reading Location: [place] [address] CC: HAND STONER-C Nancy Sam; Dr. Stephanie Mtz MD Hl7 Developer: Signed [facility] OB Triage Progress Noteon OB Triage Progress Note [facility] Medical Records Department [address] [place] [address] OB Triage Progress Note 06/19/24 1437 MR#: [id number] Acct: [id number] Name: YUSRA FUENTES Rep #: [id number] : 1995 29 From: Lara Cespedes CNM PCP: KULDIP Marroquin Status:REG CLI Y DOS: Location: [place] [address] Progress Notes Date of Service: 06/19/24 Progress Note: Patient presents for triage evaluation secondary to NST after BPP 6/8 FHT: 135 Moderate variability reactive no decelerations category I tracing [place]: mild-moderate Contractions Assessment and plan: cervical exam done and 1/thick/posterior per nursing, encourage oral hydration, Reactive NST, reassuring maternal and status patient discharged to home to follow-up in office or return to if contractions worsen. See problem list details for additional plan information. Charges/Coding Multi Select Codes Urinary/Genital Urinary/Genital CPT Codes: 74508-19 non-stress test Interp Assessment Plan (1) Gestational [...] 10/29 d/c home 06/19/24 1441 Date Lara Alegre Signature (if applicable): Date _ CC: ARTEM Cespedes; KULDIP Sam Signed [facility] Biophysical Prof W/O Non Str eson 06-12-2024 Biophysical Prof W/O Non Stres [facility] Imaging Services [address] [place], [place] [address] Biophysical Prof W/O Non Stres MR#: [id number] Acct: [id number] Name: YUSRA FUENTES Rep #: [id number] : 1995 F 29 From: León Gallo MD PCP: KULDIP Marroquin Status: REG CLI Study: Biophysical Prof W/O Non Stres Date of Exam: 0 06/12/24 Exam# [id number] Ordering Dr: Stephanie Mtz EXAM: Biophysical Prof [...] of a total of 8. Reading Location: [facility] CC: KULDIP Sam; Dr. Stephanie Mtz MD Hl7 Developer: Signed [facility] Toll Ticket Clerk Office Visit Reporton 06-12-2024 Toll Ticket Clerk Office Visit Report [facility] Women's [address], [address] [place] [address] OFFICE VISIT Date of Service: 06/12/24 MR#: [id number] Acct: [id number] Name: YUSRA FUENTES Rep #: [id number] : 1995 Provider: Dr. 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 Date Name GA/Weeks Outcome Route Bth Weight Infant Gen Labor Lgth Anesthesia Del Locatn Provider FOB Unknown Chemical - 2018 04/06/15 Braxten 38 live - full term 8lbs 14oz Male 36 epidural [facility] Summer Coral-Renan Itz 01/12/19 [place] 39 live - full term 9lbs 4oz Male 8 epidural [facility] S ummer Coral-Renan Itz Delivery Date: 04/06/15 [...] Note 12/30/23 (more content not included)... Normal [facility] Laboratory - Chemistry and C hemistry - challengeOrdered By: Lara Cespedes on 05-29-2024 Glucose Ql (U) Negative [facility] Laboratory - UrinalysisOrder ed By: Lara Cespedes on 05-29-2024 Protein Ql (U) Negative [facility] Toll Ticket Clerk Office Visit Reporton 05-29-2024 Toll Ticket Clerk Office Visit Report [facility] Women's [address], [address] [place] [address] OFFICE VISIT Date of Service: 05/29/24 MR#: [id number] Acct: [id number] Name: YUSRA FUENTES Rep #: [id number] : 1995 Provider: ARTEM Albert ams Age/Sex: 29/F Location: [facility] Status: Signed with Addenda ADDENDUM by Sneha Banda on 05/29/24 at 1544 Office Procedure Documentation entered by Sneha Banda 05/29/24 15:44: Immunizations Adacel(Tdap Adolesn/Adult)(PF) 2 Lf-(2.5-5-3-5)-5 Lf/0.5 mL IM syringe Performing Provider: Lara Cespedes CNM Performing Location: [facility] Administered by: Sneha Banda on 05/29/24 15:44 Dose Route Admin Location Dispensed Lot Number Expiration Date NDC Man ufacturer 0.5 mL IM Left Deltoid 0.5 mL [id number] 04/21/26 71998-004-48 [employer]P [employer] VIS Given Date VIS Provided [...] children number of children: 2 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 Date Name GA/Weeks Outcome Route Bth Weight Gen Labor Lgth Anesthesia Del Locatn Provider FOB Unknown Chemical - 2018 04/06/15 Braxten 38 live - full term 8lbs 14oz Male 36 epidural [facility] Summer Svetlana Mobley 01/12/19 [place] 39 live - full term 9lbs 4oz Male 8 epidural [facility] S ummer Svetlana Mobley Delivery Date: 04/06/15 Last Updated by: Sujey Hong RN Gained 60lbs, Induced d/t early pre-e Delivery Date: 10/24/19 Last Updated by: Sujey Hong RN Induction [...] [] Fl (more content not included)... Normal [facility] OB Limited With Biometricson 05-23-2024 OB Limited With Biometrics [facility] Imaging Services [address] [place], [place] [address] OB Limited With Biometrics MR#: [id number] Acct: [id number] Name: YUSRA FUENTES Rep #: [id number] : 1995 F 29 From: Otis westbrook MD PCP: KULDIP Marroquin Status: REG CLI Study: OB Limited With Biometrics Date of Exam: 05/23 Exam# [id number] Ordering Dr: Stephanie Mtz PROCEDURE: OB LIMITED [...] 31 weeks and 4 days. Reading Location: [id number] CC: KULDIP Sam; Dr. Stephanie Mtz MD Hl7 Developer: Signed Normal [facility] Laboratory - Chemistry and C hemistry - challengeOrdered By: Lara Cespedes on 05-15-2024 Glucose Ql (U) Negative [facility] Laboratory - UrinalysisOrder ed By: Lara Cespedes on 05-15-2024 Protein Ql (U) Negative [facility] Toll Ticket Clerk Office Visit Reporton 05-15-2024 Toll Ticket Clerk Office Visit Report [facility]'s [address], [address] [place] [address] OFFICE VISIT Date of Service: 05/15/24 MR#: [id number] Acct: [id number] Name: YUSRA FUENTES Rep #: [id number] : 1995 Provider: ARTEM Albert ams Age/Sex: 29/F Location: [facility] Status: Signed Intake Vital Signs 12/30/23 10:08 04/17/24 08:26 05/15/24 13:00 Height 5 ft 4 in 5 ft 4 in 5 ft 4 in Weight: 264 lb 6 oz BMI 45.3 BP 133/78 H Intake Visit Reasons: 30 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 Date Name GA/Weeks Outcome Route Bth Weight Gen Labor Lgth Anesthesia Del Locatn Provider FOB Unknown Chemical - 201704/06/15 Braxten 38 live - full term 8lbs 14oz Male 36 epidural [facility] Summer Svetlana Mobley 01/12/19 [place] 39 live - full term 9lbs 4oz Male 8 epidural [facility] S lelamer Svetlana Mobley Delivery Date: 04/06/15 [...] -???-???- 16 (more content not included)... Normal [facility] Gestational GTT 3HR 100gon 0 04-25-2024 3HR GTT- GEST. High [facility] Comment on above: Order Comment: Y [...] Col: 04/25/24 0955 Performed By: #### L 501.0250, L509.8000, L3890.6005, L100.0100 #### [facility] Laboratory [address] [place] [address]. [place], [place], [id number] Glucose tolerance 3 hours ge stational panelOrdered By: Santa Adair on 04-25-2024 Gestational Glucose Tolerance Test See comment [facility] Comment on above: FASTING 79 Col: [...] 04-17-2024 Neutrophils (Bld) [#/Vol] 7.2 10*3/uL 2.0-7.7 [facility] Basophil percentageOrdered B y: Stephanie Mtz on 04-17-2024 Basophils/100 WBC (Bld) 0.3 % 0-1 [facility] CBC W/Diff, Automatedon 01-2 Absolute Lymph 1.20 X10 3/uL Normal 0.83-4.51 [facility] Comment on above: Performed By: #### L 501.0250, L509.8000, L3890.6005, L100.0100 #### [facility] Laboratory [address] [place], [address] Absolute Neut 7.2 X10 3/uL Normal 2.0-7.7 [facility] Comment on above: Performed By: #### L 501.0250, L509.8000, L3890.6005, L100.0100 #### [facility] Laboratory [address] [place], [address] Basophils/100 WBC (Bld) 0.3 % Normal 0-1 [facility] Comment on above: Performed By: #### L 501.0250, L509.8000, L3890.6005, L100.0100 #### [facility] [address] [place], [address] Eosinophils/100 WBC (Bld) 0.9 % Normal 0-5 [facility] Comment on above: Performed By: #### L 501.0250, L509.8000, L3890.6005, L100.0100 #### [facility] [address] [place], [address] Erythrocyte distribution width (RBC) [Ratio] 13.2 % Normal 11.6-14.6 [facility] Comment on above: Performed By: #### L 501.0250, L509.8000, L3890.6005, L100.0100 #### [facility] Laboratory [address] [place], [address] Hematocrit (Bld) [Volume fraction] 38.5 % Normal 37-47 [facility] Comment on above: Performed By: #### L 501.0250, L509.8000, L3890.6005, L100.0100 #### [facility] Laboratory [address] [place], [address] Hemoglobin (Bld) [Mass/Vol] 12.6 g/dL Normal 12.0-15.0 [facility] Comment on above: Performed By: #### L 501.0250, L509.8000, L3890.6005, L100.0100 #### [facility] [address] [place], [address] IG% 0.600 Normal 0.0-0.9 [facility] Comment on above: Result Comment: IG% - Immature Granulocytes (promyelocytes, myelocytes and metamyelocytes) > 1% indicates that a LEFT SHIFT is Present. Performed By: #### L 501.0250, L509.8000, L3890.6005, L100.0100 #### [facility] [address] [place], [address] Lymphocytes/100 WBC (Bld) 13.3 % Low 19-41 [facility] Comment on above: Performed By: #### L 501.0250, L509.8000, L3890.6005, L100.0100 #### [facility] [address] [place], [address] MCH (RBC) [Entitic mass] 29.2 pg Normal 27.0-32.0 [facility] Comment on above: Performed By: #### L 501.0250, L509.8000, L3890.6005, L100.0100 #### [facility] [address] [place], [address] MCHC (RBC) [Mass/Vol] 32.7 g/dL Normal 32-36 [facility] Comment on above: Performed By: #### L 501.0250, L509.8000, L3890.6005, L100.0100 #### [facility] [address] [place], [address] MCV (RBC) [Entitic vol] 89.3 fL Normal 81-99 [facility] Comment on above: Performed By: #### L 501.0250, L509.8000, L3890.6005, L100.0100 #### [facility] [address] [place], [address] Monocytes/100 WBC (Bld) 5.3 % Normal 0-10 [facility] Comment on above: Performed By: #### L 501.0250, L509.8000, L3890.6005, L100.0100 #### [facility] [address] [place], [address] Neutrophils/100 WBC (Bld) 79.6 % High 47-70 [facility] Comment on above: Performed By: #### L 501.0250, L509.8000, L3890.6005, L100.0100 #### [facility] [address] [place], [address] Nucleated RBC (Bld) [#/Vol] 0 10*3/uL Normal 0-5 [facility] Comment on above: Performed By: #### L 501.0250, L509.8000, L3890.6005, L100.0100 #### [facility] [address] [place], [address] Platelet mean volume (Bld) [Entitic vol] 11.0 fL Normal 6.2-12.0 [facility] Comment on above: Performed By: #### L 501.0250, L509.8000, L3890.6005, L100.0100 #### [facility] [address] [place], [address] Platelets (Bld) [#/Vol] 258 10*3/uL Normal 150-450 [facility] Comment on above: Performed By: #### L 501.0250, L509.8000, L3890.6005, L100.0100 #### [facility] [address] [place], [address] RBC (Bld) [#/Vol] 4.31 10*6/uL Normal 4.2-5.4 [facility] Comment on above: Performed By: #### L 501.0250, L509.8000, L3890.6005, L100.0100 #### [facility] [address] [place], [address] RDW SD 43.4 fl Normal 35.1-43.9 [facility] Comment on above: Performed By: #### L 501.0250, L509.8000, L3890.6005, L100.0100 #### [facility] [address] [place], [address] WBC (Bld) [#/Vol] 9.0 10*3/uL Normal 4.4-11.0 [facility] Comment on above: Performed By: #### L 501.0250, L509.8000, L3890.6005, L100.0100 #### [facility] [address] [place], [address] Eosinophil percentageOrdered By: Stephanie Mtz on 04-17-2024 Eosinophils/100 WBC (Bld) 0.9 % 0-5 [facility] Erythrocyte distribution wid th ratioOrdered By: Stephanie Mtz on 04-17-2024 Erythrocyte distribution width (RBC) [Ratio] 13.2 % 11.6-14.6 [facility] Erythrocyte distribution wid th standard deviationOrdered By: Stephanie Mtz on 04-17-2024 Erythrocyte distribution width (RBC) [Entitic vol] 43.4 fL 35.1-43.9 [facility] Glucose 1 Hr post 50 g gluco se PO [Mass/Vol]Ordered By: Stephanie Mtz on 04-17-2024 Glucose [Mass/Vol] 151 mg/dL High 70-140 [facility] Glucose Challenge Gest 1H 50 lorri 04-17-2024 GLU GEST 50g 1H 151 mg/dL High 70-140 [facility] Comment on above: Performed By: #### L 501.0250, L509.8000, L3890.6005, L100.0100 #### [facility] [address] [place], [address] HIV - WCHon 04-17-2024 HIV Non-Reactive Normal Nonreactive [facility] Comment on above: Performed By: #### L 501.0250, L509.8000, L3890.6005, L100.0100 #### [facility] [address] [place], [place], [address] HIV 1+2 Ab+HIV1 p24 Ag IA Ql Ordered By: Stephanie Mtz on 04-17-2024 HIV (1&2) Antibody Non-Reactive Nonreactive [facility] Hematocrit Auto (Bld) [Volum e fraction]Ordered By: Stephanie Mtz on 04-17-2024 Hematocrit (Bld) [Volume fraction] 38.5 % 37-47 [facility] Hemoglobin measurementOrdere d By: Stephanie Mtz on 04-17-2024 Hemoglobin (Bld) [Mass/Vol] 12.6 g/dL 12.0-15.0 [facility] Immature granulocytes/100 WB C Auto (Bld)Ordered By: Stephanie Mtz on 04-17-2024 Immature granulocytes/100 WBC (Bld) 0.600 % 0.0-0.9 [facility] Comment on above: IG% - Immature Granu locytes (promyelocytes, myelocytes and metamyelocytes) > 1% indicates that a LEFT SHIFT is Present. L509.8000on 04-17-2024 Syphilis Abs Non-Reactive Normal [facility] Comment on above: Performed By: #### L 501.0250, L509.8000, L3890.6005, L100.0100 #### [facility] [address] [place], [address] Laboratory - Chemistry and C hemistry - challengeon 04-17-2024 Glucose Ql (U) Negative [facility] - Urinalysison Protein Ql (U) Trace [facility] Lymphocytes Auto (Unsp spec) [#/Vol]Ordered By: Stephanie Mtz on 04-17-2024 Lymphocytes (Bld) [#/Vol] 1.20 10*3/uL 0.83-4.51 [facility] Lymphocytes/100 WBC Auto (Un sp spec)Ordered By: Stephanie Mtz on 04-17-2024 Lymphocytes/100 WBC (Bld) 13.3 % Low 19-41 [facility] MCV (mean corpuscular volume ) determinationOrdered By: Stephanie Mtz on 04-17-2024 MCV (RBC) [Entitic vol] 89.3 fL 81-99 [facility] Mean corpuscular hemoglobin (MCH) determinationOrdered By: Stephanie Mtz on 04-17-2024 MCH (RBC) [Entitic mass] 29.2 pg 27.0-32.0 [facility] Mean corpuscular hemoglobin concentration (MCHC) determinationOrdered By: Stephanie Mtz on 04-17-2024 MCHC (RBC) [Mass/Vol] 32.7 g/dL 32-36 [facility] Mean platelet volume determi nationOrdered By: Stephanie Mtz on 04-17-2024 Platelet mean volume (Bld) [Entitic vol] 11.0 fL 6.2-12.0 [facility] Monocyte percentageOrdered B y: Stephanie Mtz on 04-17-2024 Monocytes/100 WBC (Bld) 5.3 % 0-10 [facility] Neutrophil percentageOrdered By: Stephanie Mtz on 04-17-2024 Neutrophils/100 WBC (Bld) 79.6 % High 47-70 [facility] Nucleated red blood cell per centageOrdered By: Stephanie Mtz on 04-17-2024 Nucleated RBC/100 WBC (Bld) [Ratio] 0 % 0-5 [facility] Toll Ticket Clerk Office Visit Reporton 04-17-2024 Toll Ticket Clerk Office Visit Report [facility] [address], [address] [place] [address] OFFICE VISIT Date of Service: 04/17/24 MR#: [id number] Acct: [id number] Name: YUSRA FUENTES Rep #: [id number] : 1995 Provider: Dr. 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 Date Name GA/Weeks Outcome Route Bth Weight Gen Labor Lgth Anesthesia Del Locatn Provider FOB Unknown Chemical - 2018 04/06/15 Bra[place] 38 live - full term 8lbs 14oz Male 36 epidural [facility] Summer Moncada-Renan Itz 01/12/19 [place] 39 live - full term 9lbs 4oz Male 8 epidural [facility] S ummer Moncada-Renan Itz Delivery Date: 04/06/15 Last Updated [...] dates. a (more content not included)... Normal [facility] Platelet countOrdered By: Yoselin Mtz on 04-17-2024 Platelets (Bld) [#/Vol] 258 10*3/uL 150-450 [facility] RBC Auto (Bld) [#/Vol]Ordere d By: Stephanie Mtz on 04-17-2024 RBC (Bld) [#/Vol] 4.31 10*6/uL 4.2-5.4 [facility] Treponema sp Ab Ql (S)Ordere d By: Stephanie Mtz on 01-27-2025 Syphilis Total Antibody Non-Reactive [facility] White blood cell (WBC) count Ordered By: Stephanie Mtz on 04-17-2024 WBC (Bld) [#/Vol] 9.0 10*3/uL 4.4-11.0 [facility] Laboratory - Chemistry and C hemistry - challengeOrdered By: Britany Hathaway on 03-20-2024 Glucose Ql (U) Negative [facility] - UrinalysisOrder ed By: Britany Hathaway on 03-20-2024 Protein Ql (U) Negative [facility] Toll Ticket Clerk Office Visit Reporton 03-20-2024 Toll Ticket Clerk Office Visit Report [facility] [address], [address] [place] [address] OFFICE VISIT Date of Service: 03/20/24 MR#: [id number] Acct: [id number] Name: YUSRA FUENTES Rep #: [id number] : 1995 Provider: Dr. 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 Date Name GA/Weeks Outcome Route Bth Weight Gen Labor Lgth Anesthesia Del Locatn Provider FOB Unknown Chemical - 2018 04/06/15 Bra[place] 38 live - full term 8lbs 14oz Male 36 epidural [facility] Summer Svetlana Mobley 01/12/19 [place] 39 live - full term 9lbs 4oz Male 8 epidural [facility] S ummer Coral-Renan Mobley Delivery Date: 04/06/15 [...] with p (more content not included)... Normal [facility] OB Anatomy w/ Transvaginalon 03-10-2024 OB Anatomy w/ Transvaginal [facility] [address] [place] [address] OB Anatomy w/ Transvaginal MR#: [id number] Acct: [id number] Name: YUSRA FUENTES Rep #: [id number] : 1995 F 29 From: Sofie Larios MD PCP: Care Physician,No Primary Status: REG CLI Study: OB Anatomy w/ Transvaginal Date of Exam: 03/10 Exam# [id number] Ordering Dr: Santa Adair HAND STONER HAND STONER -C [id number] EXAM: US SECOND OR THIRD TRIMESTER , [...] CC: KULDIP Adair; No Primary Care Physician Hl7 Developer: Signed Normal [facility] - Chemistry and C hemistry - challengeon 02-28-2024 Glucose Ql (U) Negative [facility] - Urinalysison Protein Ql (U) Negative [facility] Toll Ticket Clerk Office Visit Reporton 02-28-2024 Toll Ticket Clerk Office Visit Report [facility] [address], [address] [place] [address] OFFICE VISIT Date of Service: 02/28/24 MR#: [id number] Acct: [id number] Name: YUSRA FUENTES Rep #: [id number] : 1995 Provider: KULDIP morley Age/Sex: 29/F Location: [facility] Status: Signed Intake Vital Signs 12/30/23 08:54 12/30/23 10:08 01/25/24 13:13 02/28/24 11:39 02/28/24 11:41 Height 5 ft 4 in 5 ft 4 in 5 ft 4 in 5 ft 4 in 5 ft 4 in Weight: 253 lb 8 oz BMI 43.4 BP 139/84 H Intake Visit Reasons: 18 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 Date Name GA/Weeks Outcome Route Bth Weight Infant Gen Labor Lgth Anesthesia Del Locatn Provider FOB Unknown Chemical - 2018 04/06/15 [place] 38 live - full term 8lbs 14oz Male 36 epidural [facility] Summer Svetlana Mobley 01/12/19 [place] 39 live - full term 9lbs 4oz Male 8 epidural [facility] S ummer Svetlana Mobley Delivery Date: 04/06/15 [...] nipt. discusse (more content not included)... Normal [facility] Oncology Visit Reporton 110 Oncology Visit Report [facility] [address] 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 She reports that when she was 15, she went to [facility] with chest pain. She was evaluated in the ER, thought to have PE, she was started on some pills which she took for 1 month. She did not see any other doctor after that. Since then she has not had any clotting episode requiring anticoagulants. She has had 2 full-term pregnancies without any clotting problems. 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 Normal [facility] Toll Ticket Clerk Office Visit Reporton 01-24-2024 Toll Ticket Clerk Office Visit Report [facility] [address], [address] [place] [address] OFFICE VISIT Date of Service: 01/24/24 MR#: [id number] Acct: [id number] Name: YUSRA FUENTES Rep #: [id number] : 1995 Provider: Dr. 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 Date Name GA/Weeks Outcome Route Bth Weight Gen Labor Lgth Anesthesia Del Locatn Provider FOB Unknown Chemical - 2018 04/06/15 Braxten 38 live - full term 8lbs 14oz Male 36 epidural [facility] Ladi Mobley 01/12/19 [place] 39 live - full term 9lbs 4oz Male 8 epidural [facility] S sandra Mobley Delivery Date: 04/06/15 Last [...] nipt. discussed (more content not included)... Normal [facility] Fact V Leiden Mutationon FACTOR V LEIDEN Comment Abnormal . [facility] Comment on above: Result Comment: Resu lt: c.1601G>A (p.Rdc971Uqq) - Detected, Heterozygous This result is associated with a 6- to 8-fold increased risk for venous thromboembolism. See Additional Clinical Information and Comments. Additional Clinical Information: Venous thromboembolism is a multifactorial disease influenced by genetic, environmental, and circumstantial risk factors. The c.1601G>A (p. Ebv723Hrb) variant in the F5 gene, commonly referred [...] c.*97G>A variant and Factor V Leiden (PMID: 42187616). Additional risk factors include but are not [...] health care providers to discuss results at [phone] ([phone]). Test Details: Variant Analyzed: c.1601G>A (p. Tca138Skk), referred to as Factor V Leiden Methods/Limitations: [...] developed and its performance characteristics determined by [facility]. It has not been cleared or approved by the Food and Drug Administration. References: Zenobia Tyler, Rose SMITH, Nguyễn R, Presley WW, Tru JH; ACMG Professional Practice and Guidelines Committee. Addendum: [employer] consensus statement on factor V Leiden mutation testing. Iba Med. 2020May 24. doi: 10.1038/n99173-384-42507-b. PMID: 24422557. Thania ELDER. Factor V Leiden Thrombophilia. 1998August 02 (Updated 2017Mar 25). In: Neal MP, Maximus HH, Desire RA, et al., editors. Chalino(R) (Internet). [place] ([place]): [facility]; 7206-1160. Available from: https://www.ncbi.nlm.nih.gov/books/LNG7778/ Grant Tyler, Rose SMITH, Vinayak X, Don B, Faheem EB, Ariadna P, Mejia CS; ACMG Laboratory Commercial Agent Committee. Venous thromboembolism laboratory testing (factor V Leiden and factor II c.*97G>A), 2018 update: a technical standard of the [employer] and Genomics (ACMG). Bia Med. 2017;20(12):7476-1142. doi: 10.1038/v19593-094-3910-y. Epub 2017Dec 24. PMID: 67640174. Performed By: #### L 501.0250, L509.8000, L3890.6005, L100.0100 #### [facility] [address] [place], [place], [address] Reviewed By Comment Normal . [facility] Comment on above: Result Comment: Tech nical Component performed at [facility] Professional Component performed by: Leaderz Leobardo Hernandez, Ph.D., [facility] Director, Molecular Genetics [address] [place] [address] [place] [address] Performed at: - [facility] [address] [place], [place] [id number] Per Diem Interpreter: Ngozi Tomas [facility], Phone: [phone] Performed By: #### L 501.0250, L509.8000, L3890.6005, L100.0100 #### [facility] [address] [place], [address] PAP I-G w/rfx hrHPV-Aptimaon 01-05-2024 ADEQ Comment Normal . [facility] Comment on above: Order Comment: Speci men Comment: [id number] Comment: Source.............CervixSpecimen Comment: LMP / Prev Treat...[id number] Comment: Other..............Specimen Comment: No. of containers..01 ThinPrep Vial Result Comment: Sati sfactory for evaluation. No endocervical component is identified. An endocervical component is not commonly seen in the patient. Performed By: #### L 7000.1800, M100.2200, L7400.0353, L501.0900 ####[facility] [address] [place], [place], [address] COMM . Normal . [facility] Comment on above: Order Comment: Speci men Comment: [id number] Comment: Source.............CervixSpecimen Comment: LMP / Prev Treat...[id number] Comment: Other..............Specimen Comment: No. of containers..01 ThinPrep Vial Performed By: #### L 7000.1800, M100.2200, L7400.0353, L501.0900 ####[facility] [address] [place], [place], [address] COMMENT Comment Normal . [facility] Comment on above: Order Comment: Speci men Comment: [id number] Comment: Source.............CervixSpecimen Comment: LMP / Prev Treat...[id number] Comment: Other..............Specimen Comment: No. of containers..01 ThinPrep Vial Result Comment: This liquid based ThinPrep(R) pap test was screened with the use of an image guided system. Performed By: #### L 7000.1800, M100.2200, L7400.0353, L501.0900 ####[facility] [address] [place], [place], [address] DIAG Comment Normal . [facility] Comment on above: Order Comment: Speci men Comment: [id number] Comment: Source.............CervixSpecimen Comment: LMP / Prev Treat...[id number] Comment: Other..............Specimen Comment: No. of containers..01 ThinPrep Vial Result Comment: NEGA TIVE FOR INTRAEPITHELIAL LESION OR MALIGNANCY. FUNGAL ORGANISMS MORPHOLOGICALLY CONSISTENT WITH DEB SPECIES ARE PRESENT. Performed By: #### L 7000.1800, M100.2200, L7400.0353, L501.0900 ####[facility] [address] [place], [address] HPV RFLX Comment Normal . [facility] Comment on above: Order Comment: Speci men Comment: [id number] Comment: Source.............CervixSpecimen Comment: LMP / Prev Treat...[id number] Comment: Other..............Specimen Comment: No. of containers..01 ThinPrep Vial Result Comment: The HPV DNA reflex criteria were not met with this specimen result therefore, no HPV testing was performed. Performed at: [address] [id number] Per Diem Interpreter: Francisca Khoury MD, Phone: [phone] Performed By: #### L 7000.1800, M100.2200, L7400.0353, L501.0900 ####[facility] [address] [place], [address] PAPSMR Comment Normal . [facility] Comment on above: Order Comment: Speci men Comment: [id number] Comment: Source.............CervixSpecimen Comment: LMP / Prev Treat...[id number] Comment: Other..............Specimen Comment: No. of containers..01 ThinPrep Vial Result Comment: The Pap smear is a screening test designed to aid in the detection of premalignant and malignant conditions of the uterine cervix. It is not a diagnostic procedure and should not be used as the sole means of detecting cervical cancer. Both false-positive and false-negative reports do occur. Performed By: #### L 7000.1800, M100.2200, L7400.0353, L501.0900 ####[facility] [address] [place], [address] PERFORM Comment Normal . [facility] Comment on above: Order Comment: Speci men Comment: [id number] Comment: Source.............CervixSpecimen Comment: LMP / Prev Treat...[id number] Comment: Other..............Specimen Comment: No. of containers..01 ThinPrep Vial Result Comment: Amilcar Lester, Social Service Agency Director (ASCP) Performed By: #### L 7000.1800, M100.2200, L7400.0353, L501.0900 ####[facility] [address] [place], [address] Miscellaneous Lab Procedure 2on 01-01-2024 [facility] TEST 2 Normal [facility] Comment on above: Order Comment: antit hromin [id number] BLUE TOPS Result Comment: TEST RESULTS LIMITS Antithrombin III, Func/Immunol Antithrombin Activity 83 % 75-135 Direct Xa inhibitor anticoagulants such as rivaroxaban, apixaban and edoxaban will lead to spuriously elevated antithrombin activity levels possibly masking a deficiency. Antithrombin Antigen 71 Low % 72-124 This test was developed and its performance characteristics determined by [facility]. It has not been cleared or approved by the Food and Drug Administration. TESTING PERFORMED AT [facility]. ORIGINAL REPORT ON FILE IN LAB CONTAINS ADDITIONAL TEST SITE INFORMATION. Performed By: #### L 501.0250, L509.8000, L3890.6005, L100.0100 #### [facility] [address] [place], [address] Urine Cultureon 01-01-2024 [facility] Mixed Gram Positive Organisms Jackson Count 11,000-25,000 MIXC Mixed contaminants. Submit a new specimen if indicated. Normal [facility] Comment on above: Performed By: #### L 7000.1800, M100.2200, L7400.0353, L501.0900 ####[facility] [address] [place], [address] Chlamydia/GC EARL aptimaon CHLAMY,NUC ACID Negative Normal Negative [facility] Comment on above: Performed By: #### L 7000.1800, M100.2200, L7400.0353, L501.0900 #### [facility] [address] [place], [address] GC BY NUC ACID Negative Normal Negative [facility] Comment on above: Result Comment: Perf ormed at: =G - [facility] [address] [id number] Per Diem Interpreter: Francisca Khoury MD, Phone: [phone] Performed By: #### L 7000.1800, M100.2200, L7400.0353, L501.0900 #### [facility] [address] [place], [address] CBC W/Diff, Automatedon 12-20 Absolute Lymph 1.77 X10 3/uL Normal 0.83-4.51 [facility] Comment on above: Performed By: #### L 501.0250, L509.8000, L3890.6005, L100.0100 #### [facility] [facility] [address] [place], [address] Absolute Neut 6.7 X10 3/uL Normal 2.0-7.7 [facility] Comment on above: Performed By: #### L 501.0250, L509.8000, L3890.6005, L100.0100 #### [facility] [address] [place], [address] Basophils/100 WBC (Bld) 0.3 % Normal 0-1 [facility] Comment on above: Performed By: #### L 501.0250, L509.8000, L3890.6005, L100.0100 #### [facility] [address] [place], [address] Eosinophils/100 WBC (Bld) 1.0 % Normal 0-5 [facility] Comment on above: Performed By: #### L 501.0250, L509.8000, L3890.6005, L100.0100 #### [facility] [address] [place], [address] Erythrocyte distribution width (RBC) [Ratio] 12.3 % Normal 11.6-14.6 [facility] Comment on above: Performed By: #### L 501.0250, L509.8000, L3890.6005, L100.0100 #### [facility] [address] [place], [address] Hematocrit (Bld) [Volume fraction] 41.0 % Normal 37-47 [facility] Comment on above: Performed By: #### L 501.0250, L509.8000, L3890.6005, L100.0100 #### [facility] [address] [place], [address] Hemoglobin (Bld) [Mass/Vol] 13.6 g/dL Normal 12.0-15.0 [facility] Comment on above: Performed By: #### L 501.0250, L509.8000, L3890.6005, L100.0100 #### [facility] [address] [place], [address] IG% 0.300 Normal 0.0-0.9 [facility] Comment on above: Result Comment: IG% - Immature Granulocytes (promyelocytes, myelocytes and metamyelocytes) > 1% indicates that a LEFT SHIFT is Present. Performed By: #### L 501.0250, L509.8000, L3890.6005, L100.0100 #### [facility] [address] [place], [address] Lymphocytes/100 WBC (Bld) 19.3 % Normal 19-41 [facility] Comment on above: Performed By: #### L 501.0250, L509.8000, L3890.6005, L100.0100 #### [facility] [address] [place], [address] MCH (RBC) [Entitic mass] 29.6 pg Normal 27.0-32.0 [facility] Comment on above: Performed By: #### L 501.0250, L509.8000, L3890.6005, L100.0100 #### [facility] [address] [place], [address] MCHC (RBC) [Mass/Vol] 33.2 g/dL Normal 32-36 [facility] Comment on above: Performed By: #### L 501.0250, L509.8000, L3890.6005, L100.0100 #### [facility] [address] [place], [address] MCV (RBC) [Entitic vol] 89.1 fL Normal 81-99 [facility] Comment on above: Performed By: #### L 501.0250, L509.8000, L3890.6005, L100.0100 #### [facility] [address] [place], [address] Monocytes/100 WBC (Bld) 6.2 % Normal 0-10 [facility] Comment on above: Performed By: #### L 501.0250, L509.8000, L3890.6005, L100.0100 #### [facility] [address] [place], [address] Neutrophils/100 WBC (Bld) 72.9 % High 47-70 [facility] Comment on above: Performed By: #### L 501.0250, L509.8000, L3890.6005, L100.0100 #### [facility] [address] [place], [address] Nucleated RBC (Bld) [#/Vol] 0 10*3/uL Normal 0-5 [facility] Comment on above: Performed By: #### L 501.0250, L509.8000, L3890.6005, L100.0100 #### [facility] [address] [place], [address] Platelet mean volume (Bld) [Entitic vol] 10.8 fL Normal 6.2-12.0 [facility] Comment on above: Performed By: #### L 501.0250, L509.8000, L3890.6005, L100.0100 #### [facility] [address] [place], [address] Platelets (Bld) [#/Vol] 279 10*3/uL Normal 150-450 [facility] Comment on above: Performed By: #### L 501.0250, L509.8000, L3890.6005, L100.0100 #### [facility] [address] [place], [address] RBC (Bld) [#/Vol] 4.60 10*6/uL Normal 4.2-5.4 [facility] Comment on above: Performed By: #### L 501.0250, L509.8000, L3890.6005, L100.0100 #### [facility] [address] [place], [address] RDW SD 40.3 fl Normal 35.1-43.9 [facility] Comment on above: Performed By: #### L 501.0250, L509.8000, L3890.6005, L100.0100 #### [facility] [address] [place], [address] WBC (Bld) [#/Vol] 9.2 10*3/uL Normal 4.4-11.0 [facility] Comment on above: Performed By: #### L 501.0250, L509.8000, L3890.6005, L100.0100 #### [facility] [address] [place], [address] Comprehensive Metabolic [facility] 12-30-2023 Albumin [Mass/Vol] 3.2 g/dL Normal 3.2-5.0 [facility] Comment on above: Performed By: #### L 501.0250, L509.8000, L3890.6005, L100.0100 #### [facility] [address] [place], [address] Albumin/Globulin [Mass ratio] 0.8 {ratio} Low 0.9-2.4 [facility] Comment on above: Performed By: #### L 501.0250, L509.8000, L3890.6005, L100.0100 #### [facility] [address] [place], [address] ALK P 51 U/L Normal 45-117 [facility] Comment on above: Performed By: #### L 501.0250, L509.8000, L3890.6005, L100.0100 #### [facility] [address] [place], [address] ALT [Catalytic activity/Vol] 15 U/L Normal 13-56 [facility] Comment on above: Performed By: #### L 501.0250, L509.8000, L3890.6005, L100.0100 #### [facility] [address] [place], [address] AST [Catalytic activity/Vol] 12 U/L Low 15-37 [facility] Comment on above: Performed By: #### L 501.0250, L509.8000, L3890.6005, L100.0100 #### [facility] [address] [place], [address] Bilirubin [Mass/Vol] 0.20 mg/dL Normal 0.20-1.00 [facility] Comment on above: Result Comment: For patients on eltrombopag therapy, use of Dimension [place] TBIL is not recommended. Performed By: #### L 501.0250, L509.8000, L3890.6005, L100.0100 #### [facility] [address] [place], [address] BUN/CRE 13.8 RATIO Normal 10-20 [facility] Comment on above: Performed By: #### L 501.0250, L509.8000, L3890.6005, L100.0100 #### [facility] [address] [place], [address] CA,Total 9.3 mg/dL Normal 8.5-10.1 [facility] Comment on above: Performed By: #### L 501.0250, L509.8000, L3890.6005, L100.0100 #### [facility] [address] [place], [address] Chloride [Moles/Vol] 109 mmol/L High 98-107 [facility] Comment on above: Performed By: #### L 501.0250, L509.8000, L3890.6005, L100.0100 #### [facility] [address] [place], [address] CO2 [Moles/Vol] 21.0 mmol/L Normal 21.0-32.0 [facility] Comment on above: Performed By: #### L 501.0250, L509.8000, L3890.6005, L100.0100 #### [facility] [address] [place], [address] Creatinine [Mass/Vol] 0.65 mg/dL Normal 0.55-1.02 [facility] Comment on above: Result Comment: The validity of the calculated GFR GFRAA in patients over 70 years has not been determined. Clinical correlation is essential. Performed By: #### L 501.0250, L509.8000, L3890.6005, L100.0100 #### [facility] [address] [place], [address] EST GFR - AA 137 mL/min Normal >60 [facility] Comment on above: Result Comment: Afri can Greek GFR Calc Performed By: #### L 501.0250, L509.8000, L3890.6005, L100.0100 #### [facility] [address] [place], [address] GAP 7 Normal 5-15 [facility] Comment on above: Performed By: #### L 501.0250, L509.8000, L3890.6005, L100.0100 #### [facility] [address] [place], [address] GFR/1.73 sq M.predicted among non-blacks MDRD (S/P/Bld) [Vol rate/Area] 113 mL/min/{1.73_m2} Normal >60 [facility] Comment on above: Result Comment: Non- GFR Calc Performed By: #### L 501.0250, L509.8000, L3890.6005, L100.0100 #### [facility] [address] [place], [address] Globulin (S) [Mass/Vol] 3.8 g/dL Normal 2.2-4.2 [facility] Comment on above: Performed By: #### L 501.0250, L509.8000, L3890.6005, L100.0100 #### [facility] [address] [place], [address] Glucose [Mass/Vol] 93 mg/dL Normal 74-106 [facility] Comment on above: Performed By: #### L 501.0250, L509.8000, L3890.6005, L100.0100 #### [facility] [address] [place], [address] Potassium [Moles/Vol] 4.1 mmol/L Normal 3.5-5.1 [facility] Comment on above: Performed By: #### L 501.0250, L509.8000, L3890.6005, L100.0100 #### [facility] [address] [place], [address] Sodium [Moles/Vol] 137 mmol/L Normal 136-145 [facility] Comment on above: Performed By: #### L 501.0250, L509.8000, L3890.6005, L100.0100 #### [facility] [address] [place], [address] T PROT 7.0 g/dL Normal 6.4-8.2 [facility] Comment on above: Performed By: #### L 501.0250, L509.8000, L3890.6005, L100.0100 #### [facility] [address] [place], [address] Urea nitrogen [Mass/Vol] 9 mg/dL Normal 7-18 [facility] Comment on above: Performed By: #### L 501.0250, L509.8000, L3890.6005, L100.0100 #### [facility] [address] [place], [address] HIV - Hon 12-30-2023 HIV Non-Reactive Normal Nonreactive [facility] Comment on above: Order Comment: Reaso n for Exam: Performed By: #### L 501.0250, L509.8000, L3890.6005, L100.0100 #### [facility] [address] [place], [address] Hemoglobin A1con 12-30-2023 HbA1c (Bld) [Mass fraction] 4.8 % Normal 3.8-5.6 [facility] Comment on above: Result Comment: Norm al < 5.7 % Prediabetic 5.7 - 6.4 % Diabetic >or= 6.5 % Please note range changes. Performed By: #### L 501.0250, L509.8000, L3890.6005, L100.0100 #### [facility] [address], [address] Hepatitis B Surface Antigeno n 12-30-2023 HEP B Surf Ag Non-Reactive Normal Nonreactive [facility] Comment on above: Order Comment: Reaso n for Exam: Performed By: #### L 501.0250, L509.8000, L3890.6005, L100.0100 #### [facility] [address] [place], [address] Hepatitis C Antibodyon 12-29 Hepatitis C AB Non-Reactive Normal Nonreactive [facility] Comment on above: Order Comment: Reaso n for Exam: Result Comment: Non Reactive: < 0.8 Equivocal: >/= 0.8 to < 1.0 Reactive: >/= 1.0 The CDC requires that a reactive/equivocal HCV antibody result be sent out for confirmation. HCV Quant by PCR testing. Performed By: #### L 501.0250, L509.8000, L3890.6005, L100.0100 #### [facility] [address] [place], [address] L509.8000on 12-30-2023 Syphilis Abs Non-Reactive Normal [facility] Comment on above: Order Comment: Reaso n for Exam: Performed By: #### L 501.0250, L509.8000, L3890.6005, L100.0100 #### [facility] [address] [place], [address] NATERAon 12-30-2023 NATFAZAL SEE SCANNED REPORT Normal [facility] Comment on above: Performed By: #### L 501.0250, L509.8000, L3890.6005, L100.0100 #### [facility] [address] 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 Date Name GA/Weeks Outcome Route Bth Weight Gen Labor Lgth Anesthesia Del Locatn Provider FOB Unknown Chemical - 2018 04/06/15 [place] 38 live - full term 8lbs 14oz Male 36 epidural [facility] Summer [place]an Itz 01/12/19 [place] 39 live - full term 9lbs 4oz Male 8 epidural [facility] S ummer [place]-Renan Itz Delivery Date: 04/06/15 Last Updated [...] cons with (more content not included)... Normal [facility] Protein+Creatinine Ratio,Uri neon 12-30-2023 PROT:CRE RATIO TNP Normal 0-200 [facility] Comment on above: Performed By: #### L 7000.1800, M100.2200, L7400.0353, L501.0900 #### [facility] [address] [place], [address] PROTEIN,UR.RAN. < 6.0 Normal <11.9 [facility] Comment on above: Performed By: #### L 7000.1800, M100.2200, L7400.0353, L501.0900 #### [facility] [address] [place], [address] UR CREAT 27.80 mg/dL Normal NO RANGE EST. [facility] Comment on above: Performed By: #### L 7000.1800, M100.2200, L7400.0353, L501.0900 #### [facility] [address] [place], [address] Rubella IgGon 12-30-2023 Rubella IgG Reactive Normal Nonreactive [facility] Comment on above: Order Comment: Reaso n for Exam: Result Comment: Anti body Results Interpretation of Immune Status Non Reactive Presumed Non-Immune Equivocal Equivocal Reactive Presumed Immune Performed By: #### L 501.0250, L509.8000, L3890.6005, L100.0100 #### [facility] [address] [place], [address] T4 Free Directon 12-30-2023 T4 FREE DIRECT 0.88 ng/dL Normal 0.76-1.46 [facility] Comment on above: Performed By: #### L 501.0250, L509.8000, L3890.6005, L100.0100 #### [facility] [address] [place], [address] Thyroid Stim Hormone (TSH)on 12-30-2023 TSH 3.240 uIU/mL Normal 0.358-3.740 [facility] Comment on above: Performed By: #### L 501.0250, L509.8000, L3890.6005, L100.0100 #### [facility] [address] [place], [address] Type AND Screenon 12-30-2023 Ab SCREEN GEL Negative Normal [facility] Comment on above: Order Comment: P Performed By: #### L 501.0250, L509.8000, L3890.6005, L100.0100 #### [facility] [address] [place], [address] CT ABDOMEN/PELVIS WITH CONTR [place] 11-26-2023 CT [...] a 2.8 cm left ovarian cyst Normal [facility] CT Abdomen and Pelvis W cont rast [...] is a 2.8 cm left ovarian cyst [facility] Radiology [facility] (narrative[facility] Abdomen and Pelvis W cont rast IVOrdered By: Frank Pappas on 11-26-2023 [facility] Work Phone: Narrative [Interpretat ion] Study observation.general [...] sac, pole and a heartbeat 123 bpm. [place]-rump length is 0.47 cm yielding a gestational [...] sac, pole and a heartbeat 123 bpm. [place]-rump length is 0.47 cm yielding a gestational [...] with estimated date of delivery of 07/22/2024. [facility] Radiology Study observation (narrative) [facility] Narrative [Interpretat ion] Study observation.general transvaginal 1st trimester USOrdered By: Mabel Heath on 11-26-2023 [facility] Work Phone: US OB TRANSVAGINAL/CERVICAL LENGTHon 11-26-2023 US OB TRANSVAGINAL/CERVICAL LENGTH US OB TRANSVAGINAL/CERVICA L LENGTH HISTORY: Pain R/O Ectopic COMPARISONS: none TECHNIQUE: Transvaginal imaging the pelvis was performed. FINDINGS: UTERUS: Normal in size and echogenicity. The uterus measures 10.0 x 6.4 x 7.3 cm. MYOMETRIUM:Unremarka ble. ENDOMETRIUM: There is a gestational sac with a yolk sac, pole and a heartbeat 123 bpm. [place]-rump length is 0.47 cm yielding a gestational [...] estimated date of delivery of 07/22/2024. Normal [facility] BETA HCG, QUAL, BLOODon 09-0 HCG ( test) Ql Positive Abnormal NEGATIVE [facility] BHCG,QUANTITATIVEon 11-25-19 24 BHCG,QUANTITATIVE [address]336.00 MIU/ML Normal [facility] Comment on above: Result Comment: [facility] INTERPRETIVE RANGES: NON FEMALE 0-6 MIU/ML MALE [...] #### B LC #### Testing performed at [address] [address] BLOOD CULTUREon 11-25-2023 Bacteria identified Cx Nom (Bld) SPECIMEN DESCRIPTION PERIPHERAL BLOOD DRAW CULTURE NO GROWTH 5 DAYS REPORT STATUS 12/01/2023 * Result Note: FINAL * Normal [facility] Comment on above: Performed By: #### B LC #### Testing performed at [address] [address] Bacteria identified Cx Nom (Bld) SPECIMEN DESCRIPTION PERIPHERAL BLOOD DRAW CULTURE NO GROWTH 5 DAYS REPORT STATUS 12/01/2023 * Result Note: FINAL * Normal [facility] Comment on above: Performed By: #### B LC #### Testing performed at [address] [address] CBCon 11-25-2023 ABSOLUTE BAS 0.0 10*3/uL Normal 0.0-0.2 [facility] Comment on above: Performed By: #### B LC #### Testing performed at [address] [address] ABSOLUTE EOS 0.0 10*3/uL Normal 0.0-0.7 [facility] Comment on above: Performed By: #### B LC #### Testing performed at [address] [address] ABSOLUTE NEUTROPHIL COUNT 6.4 10*3/uL Normal 1.4-6.5 [facility] Comment on above: Performed By: #### B LC #### Testing performed at [address] [address] Basophils/100 WBC (Bld) 0.2 % Normal 0.0-2.0 [facility] Comment on above: Performed By: #### B LC #### Testing performed at [address] [place] [address] DTYPE AUTO DIFF Normal [facility] Comment on above: Performed By: #### B LC #### Testing performed at [address] [address] Eosinophils/100 WBC (Bld) 0.5 % Normal 0.0-11.0 [facility] Comment on above: Performed By: #### B LC #### Testing performed at [address] [address] Lymphocytes (Bld) [#/Vol] 0.5 10*3/uL Low 1.2-3.4 [facility] Comment on above: Performed By: #### B LC #### Testing performed at [address] [address] Lymphocytes/100 WBC (Bld) 6.5 % Low 20.0-55.0 [facility] Comment on above: Performed By: #### B LC #### Testing performed at [address] [address] Monocytes (Bld) [#/Vol] 0.4 10*3/uL Normal 0.0-0.7 [facility] Comment on above: Performed By: #### B LC #### Testing performed at [address] [address] Monocytes/100 WBC (Bld) 5.8 % Normal 0.0-10.0 [facility] Comment on above: Performed By: #### B LC #### Testing performed at [address] [address] Neutrophils/100 WBC (Bld) 87.0 % High 37.0-75.0 [facility] Comment on above: Performed By: #### B LC #### Testing performed at [address] [address] Erythrocyte distribution width (RBC) [Ratio] 13.6 % Normal 11.5-14.5 [facility] Comment on above: Performed By: #### B LC #### Testing performed at [address] [address] Hematocrit (Bld) [Volume fraction] 41.0 % Normal 36.0-48.0 [facility] Comment on above: Performed By: #### B LC #### Testing performed at [address] [address] Hemoglobin (Bld) [Mass/Vol] 13.8 g/dL Normal 12.0-16.0 [facility] Comment on above: Performed By: #### B LC #### Testing performed at [address] [address] MCH (RBC) [Entitic mass] 30.0 pg Normal 26.0-35.0 [facility] Comment on above: Performed By: #### B LC #### Testing performed at [address] [address] MCHC (RBC) [Mass/Vol] 33.7 g/dL Normal 27.0-37.0 [facility] Comment on above: Performed By: #### B LC #### Testing performed at [address] [address] MCV (RBC) [Entitic vol] 89.2 fL Normal 80.0-100.0 [facility] Comment on above: Performed By: #### B LC #### Testing performed at [address] [address] Platelet mean volume (Bld) [Entitic vol] 8.7 fL Normal 7.4-11.0 [facility] Comment on above: Performed By: #### B LC #### Testing performed at [address] [address] Platelets (Bld) [#/Vol] 229 10*3/uL Normal 130-400 [facility] Comment on above: Performed By: #### B LC #### Testing performed at [address] [address] RBC (Bld) [#/Vol] 4.60 10*6/uL Normal 4.0-5.4 [facility] Comment on above: Performed By: #### B SINA #### Testing performed at [facility] [address] [place] [address] WBC (Bld) [#/Vol] 7.4 10*3/uL Normal 3.6-11.0 [facility] Comment on above: Performed By: #### B SINA #### Testing performed at [place] [address] [place] [address] CBC, EDIF, PLATELETon 2023 ABSOLUTE BASOPHIL COUNT 0.0 10*3/uL 0.0 - 0.2 10*3/uL [facility] Basophils/100 WBC (Bld) 0.2 % 0.0 - 2.0 % [facility] Differential cell count method Nom (Bld) AUTO DIFF % [facility] Eosinophils (Bld) [#/Vol] 0.0 10*3/uL 0.0 - 0.7 10*3/uL [facility] Eosinophils/100 WBC (Bld) 0.5 % 0.0 - 11.0 % [facility] Erythrocyte distribution width (RBC) [Ratio] 13.6 % 11.5 - 14.5 % [facility] Hematocrit (Bld) [Volume fraction] 41.0 % 36.0 - 48.0 % [facility] Hemoglobin (Bld) [Mass/Vol] 13.8 g/dL [facility] Interpretation and review of laboratory results Abnormal [facility] Lymphocytes (Bld) [#/Vol] 0.5 10*3/uL Low 1.2 - 3.4 10*3/uL [facility] Lymphocytes/100 WBC (Bld) 6.5 % Low 20.0 - 55.0 % [facility] MCH (RBC) [Entitic mass] 30.0 pg 26.0 - 35.0 PG [facility] MCHC (RBC) [Mass/Vol] 33.7 g/dL [facility] MCV (RBC) [Entitic vol] 89.2 fL A [facility] Monocytes (Bld) [#/Vol] 0.4 10*3/uL 0.0 - 0.7 10*3/uL [facility] Monocytes/100 WBC (Bld) 5.8 % 0.0 - 10.0 % [facility] Neutrophils (Bld) [#/Vol] 6.4 10*3/uL 1.4 - 6.5 10*3/uL [facility] Neutrophils/100 WBC (Bld) 87.0 % High 37.0 - 75.0 % [facility] Platelet mean volume (Bld) [Entitic vol] 8.7 fL [facility] Platelets (Bld) [#/Vol] 229 10*3/uL 130 - 400 10*3/uL [facility] RBC (Bld) [#/Vol] 4.60 10*6/uL 4.0 - 5.4 10*6/uL [facility] WBC (Bld) [#/Vol] 7.4 10*3/uL 3.6 - 11.0 10*3/uL [facility] CHEM 7 FASTINGon 11-25-2023 Chloride [Moles/Vol] 106 mmol/L Normal 98-107 [facility] Comment on above: Result Comment: Rosendo barnes note: Triglyceride levels of 600mg/dL or higher may positively bias chloride results by approximately 2.1 mmol Performed By: #### B LC #### Testing performed at [address] [address] CO2 [Moles/Vol] 22 mmol/L Normal 22-30 [facility] Comment on above: Performed By: #### B LC #### Testing performed at [address] [address] Creatinine [Mass/Vol] 0.60 mg/dL Low 0.70-1.20 [facility] Comment on above: Performed By: #### B LC #### Testing performed at [address] [address] EST. GFR, 152 ml/min/1.73sq.m [facility] Comment on above: Performed By: #### B LC #### Testing performed at [address] [address] EST. GFR,Non 126 ml/min/1.73sq.m [facility] Comment on above: Performed By: #### B LC #### Testing performed at [address] [address] GFR Information Average GFR for 20-29 years old = 116. Normal [facility] Comment on above: Result Comment: Motor Tester kenroy Kidney disease, GFR = <60. Kidney failure, GFR = <15. The GFR estimate is not adjusted for extreme body surface area or acute process, nor has it been validated for women or ethnic groups other than and . Performed By: #### B LC #### Testing performed at [address] [address] Glucose [Mass/Vol] 104 mg/dL High 70-100 [facility] Comment on above: Result Comment: NORMAL <100 mg/dL PREDIABETES 101-126 mg/dL DIABETES 126 mg/dL or higher Performed By: #### B LC #### Testing performed at [address] [address] Potassium [Moles/Vol] 3.9 mmol/L Normal 3.5-5.1 [facility] Comment on above: Performed By: #### B LC #### Testing performed at [address] [address] Sodium [Moles/Vol] 136 mmol/L Low 137-145 [facility] Comment on above: Performed By: #### B LC #### Testing performed at [address] [address] Urea nitrogen [Mass/Vol] 11 mg/dL Normal 7-20 [facility] Comment on above: Performed By: #### B LC #### Testing performed at [address] [address] CHEM 7 (LYTES,BUN,CREA,GLUC) on 11-25-2023 Chloride [Moles/Vol] 106 mmol/L [facility] [employer] Comment on above: Please note: Triglyc eride levels of 600mg/dL or higher may positively bias chloride results by approximately 2.1 mmol CO2 [Moles/Vol] 22 mmol/L [facility] Creatinine [Mass/Vol] 0.60 mg/dL Low [facility] GFR COMMENT Average GFR for 20-29 years old = 116. [facility] Comment on above: Chronic Kidney disea se, GFR = <60. Kidney failure, GFR = <15. The GFR estimate is not adjusted for extreme body surface area or acute process, nor has it been validated for women or ethnic groups other than and . GFR/1.73 sq M.predicted among blacks MDRD (S/P/Bld) [Vol rate/Area] 152 mL/min/{1.73_m2} ml/min/1.73sq. m [facility] GFR/1.73 sq M.predicted among non-blacks MDRD (S/P/Bld) [Vol rate/Area] 126 mL/min/{1.73_m2} ml/min/1.73sq. m [facility] Glucose post fast [Mass/Vol] 104 mg/dL High [facility] Comment on above: NORMAL <100 mg/dL PREDIABETES 101-126 mg/dL DIABETES 126 mg/dL or higher Interpretation and review of laboratory results Abnormal [facility] Potassium [Moles/Vol] 3.9 mmol/L [facility] Sodium [Moles/Vol] 136 mmol/L Low [facility] Urea nitrogen [Mass/Vol] 11 mg/dL [facility] HCG ( test) [place] [address].00 m[IU]/mL MIU/ML [facility] Comment on above: [facility] INTERPRETIVE RANGES: NON FEMALE 0-6 MIU/ML MALE [...] include the qualitative hCG testing of urine. [facility] Interpretation and review of laboratory results Abnormal [facility] HEPATIC FUNCTION PANELon Albumin [Mass/Vol] 4.3 g/dL [facility] ALP [Catalytic activity/Vol] 58 U/L [facility] ALT [Catalytic activity/Vol] 21 U/L NINF [facility] AST [Catalytic activity/Vol] 22 U/L [facility] Bilirubin [Mass/Vol] 0.5 mg/dL [facility] Bilirubin.direct [Mass/Vol] 0.1 mg/dL [facility] Protein [Mass/Vol] 7.1 g/dL [facility] INFLUENZA A AND B, PCRon FLUAV and FLUBV Ag IF Nom (Unsp spec) Negative NEGATIVE [facility] FLUBV Ag IA Ql (Unsp spec) Negative NEGATIVE [facility] Comment on above: TESTING PERFORMED BY EAR[employer] [facility] LACTATE, BLOODon 11-25-2023 Lactate [Moles/Vol] 1.4 mmol/L 0.7 - 2. 0 mmol/L [facility] LACTATE,BLOODon 11-25-2023 Lactate [Moles/Vol] 1.4 mmol/L Normal 0.7-2.0 [facility] Comment on above: Performed By: #### E SR, HEMOG, B12, CREACT, LIP2, CMPF #### Testing performed at [address] [address] LIVER PANELon 11-25-2023 Albumin [Mass/Vol] 4.3 g/dL Normal 2.9-5.3 [facility] Comment on above: Performed By: #### B LC #### Testing performed at [address] [address] ALP [Catalytic activity/Vol] 58 U/L Normal 38-126 [facility] Comment on above: Performed By: #### B LC #### Testing performed at [address] [address] ALT [Catalytic activity/Vol] 21 U/L Normal <35 [facility] Comment on above: Performed By: #### B LC #### Testing performed at [address] [address] AST [Catalytic activity/Vol] 22 U/L Normal 14-36 [facility] Comment on above: Performed By: #### B LC #### Testing performed at [address] [address] Bilirubin [Mass/Vol] 0.5 mg/dL Normal 0.2-1.3 [facility] Comment on above: Performed By: #### B LC #### Testing performed at [address] [address] Bilirubin.indirect [Mass/Vol] 0.1 mg/dL Normal 0.0-0.4 [facility] Comment on above: Performed By: #### B LC #### Testing performed at [address] [address] Protein [Mass/Vol] 7.1 g/dL Normal 6.3-8.2 [facility] Comment on above: Performed By: #### B LC #### [place] [address] NOVEL CORONAVIRUSon 11-25-19 24 NARRATIVE This test was performed using isothermal [employer] and has been approved as Emergency Use Authorization (EUA) for the qualitative detection [id number] nucleic acid. Normal [facility] Comment on above: Performed By: #### B LC #### Testing performed at [place] [id number] SARS-CoV-2 (COVID-19) RNA EARL+probe Ql (Unsp spec) Not detected Normal NOT DETECTED [facility] Comment on above: Result Comment: Nega tive [...] #### B LC #### Testing performed at [address] [address] NOVEL CORONAVIRUS LAB 1 - NA SOPHARYNGEALon 11-25-2023 NARRATIVE -1 This test was performed using isothermal [employer] and has been approved as Emergency Use Authorization (EUA) for the qualitative detection [id number] nucleic acid. [facility] SARS-CoV-2 (COVID-19) RNA EARL+probe Ql (Unsp spec) Not detected NOT DETECTED [facility] Comment on above: Negative results do not [...] patient is critically ill or clinically deteriorating. [facility] No Panel Informationon 11-24 [facility] RAPID FLU Aon 11-25-2023 INFLUENZA A Negative Normal NEGATIVE [facility] Comment on above: Performed By: #### E SR, HEMOG, B12, CREACT, LIP2, CMPF #### Testing performed at [address] [address] INFLUENZA B Negative Normal NEGATIVE [facility] Comment on above: Result Comment: TEST ING PERFORMED BY [employer] Performed By: #### E SR, HEMOG, B12, CREACT, LIP2, CMPF #### Testing performed at [address] [address] RAPID STREP A ANTIGENon S. pyogenes Ag Ql (Throat) Negative NEGATIVE [facility] Comment on above: STREP CULTURE TO FOL LOW TESTING PERFORMED BY [employer] [facility] RAPID STREP GROUP Aon 2023 S. pyogenes Ag IA Ql (Unsp spec) Negative Normal NEGATIVE [facility] Comment on above: Result Comment: STRE P CULTURE TO FOLLOW TESTING PERFORMED BY [employer] Performed By: #### B LC #### Testing performed at [address] [address] SERUM HCG QUALon 11-25-2023 SERUM BETA HCG,QUAL Positive Abnormal NEGATIVE [facility] Comment on above: Performed By: #### B LC #### Testing performed at [address] [address] THROAT CULTUREon 11-25-2023 Throat culture SPECIMEN DESCRIPTION THROAT SWAB CULTURE USUAL OROPHARYNGEAL YUNIOR * Result Note: Testing performed at [place], [place] [address] * REPORT STATUS 11/28/2023 * Result Note: FINAL * Normal [facility] Comment on above: Performed By: #### B LC #### Testing performed at [address] [address] TYPE AND SCREEN CROSSMATCH C ONVERTIBLEon 11-25-2023 TYPE AND SCREEN CROSSMATCH CONVERTIBLE WORKUP EXPIRES 11/28/2023,2358 ABO/RH(D) AB POSITIVE ANTIBODY SCREEN NEGATIVE ARM BAND NUMBER [id number] Normal [facility] Comment on above: Performed By: #### E SR, HEMOG, B12, CREACT, LIP2, CMPF #### Testing performed at [address] [address] TYPE AND SCREEN - POSSIBLE T RANSFUSIONon 11-25-2023 ABO and Rh group Nom (Bld ) Positive [facility] ARM BAND NUMBER [id number] [facility] Blood group antibody screen Ql Negative [facility] EXPIRATION DATE 11/28/2023,2358 [facility] URINALYSIS, MACROon 11-25-19 24 Bilirubin Ql (U) Negative NEGATIVE [facility] Clarity (U) CLEAR CLEAR [facility] Color (U) YELLOW YELLOW [facility] Glucose Test strip (U) [Mass/Vol] Negative NEGATIVE mg/dl [facility] Hemoglobin Ql (U) Negative NEGATIVE [facility] Interpretation and review of laboratory results Abnormal [facility] Ketones (U) [Mass/Vol] Negative NEGATIVE mg/d l [facility] Leukocyte esterase Test strip Ql (U) Negative NEGATIVE [facility] Nitrite Ql (U) Negative NEGATIVE [facility] pH (U) 6.5 [pH] 5.0 - 7.0 [facility] Protein Ql (U) Negative NEGATIVE mg/dl [facility] Specific gravity (U) [Rel density] >1.030 High 1.010 - 1.025 [facility] Urobilinogen (U) [Mass/Vol] 0.2 mg/dL [facility] URINE MACROSCOPICon 11-25-19 24 Bilirubin Ql (U) Negative Normal NEGATIVE [facility] Comment on above: Performed By: #### U MAC #### Testing performed at [address] [address] Clarity (U) CLEAR Normal CLEAR [facility] Comment on above: Performed By: #### U MAC #### Testing performed at [address] [address] Color (U) YELLOW Normal YELLOW [facility] Comment on above: Performed By: #### U MAC #### Testing performed at [address] [address] Glucose Ql (U) Negative Normal NEGATIVE [facility] Comment on above: Performed By: #### U MAC #### Testing performed at [address] [address] pH (U) 6.5 [pH] Normal 5.0-7.0 [facility] Comment on above: Performed By: #### U MAC #### Testing performed at [address] [address] URINE HEMOGLOBIN Negative Normal NEGATIVE [facility] Comment on above: Performed By: #### U MAC #### Testing performed at [address] [address] URINE KETONE Negative Normal NEGATIVE [facility] Comment on above: Performed By: #### U MAC #### Testing performed at [address] [place] [address] URINE LEUKOTEST Negative Normal NEGATIVE [facility] Comment on above: Performed By: #### U MAC #### Testing performed at [address] [address] URINE NITRATES Negative Normal NEGATIVE [facility] Comment on above: Performed By: #### U MAC #### Testing performed at [address] [address] URINE SPEC GRAVITY >1.030 High 1.010-1.025 [facility] Comment on above: Performed By: #### U MAC #### Testing performed at [address] [address] URINE TOTAL PROTEIN Negative Normal NEGATIVE [facility] Comment on above: Performed By: #### U MAC #### Testing performed at [address] [address] Urobilinogen Qn (U) 0.2 {Sayra'U}/dL Normal 0.2-1.0 [facility] Comment on above: Performed By: #### U MAC #### Testing performed at [address] [address] 25 0H VITAMIN D LEVELon 08-21 25 0H VITAMIN D LEVEL 32.2 NG/ML Normal [facility] Comment on above: Result Comment: DEFICIENT <20 NG/ML INSUFFICIENT 20-<30 NG/ML SUFFICIENT 30-100 NG/ML POTENTIAL TOXICITY >100 NG/ML Performed By: #### E SR, HEMOG, B12, CREACT, LIP2, CMPF #### Testing performed at [address] [address] C REACTIVE PROTEINon 024 CRP [Mass/Vol] 6.8 mg/L Normal 0-10 [facility] Comment on above: Performed By: #### E SR, HEMOG, B12, CREACT, LIP2, CMPF #### Testing performed at [address] [address] CBC(NO DIFF)on 09-15-2023 Erythrocyte distribution width (RBC) [Ratio] 12.7 % Normal 11.5-14.5 [facility] Comment on above: Performed By: #### E SR, HEMOG, B12, CREACT, LIP2, CMPF #### Testing performed at [address] [address] Hematocrit (Bld) [Volume fraction] 44.4 % Normal 36.0-48.0 [facility] Comment on above: Performed By: #### E SR, HEMOG, B12, CREACT, LIP2, CMPF #### Testing performed at [address] [address] Hemoglobin (Bld) [Mass/Vol] 14.9 g/dL Normal 12.0-16.0 [facility] Comment on above: Performed By: #### E SR, HEMOG, B12, CREACT, LIP2, CMPF #### Testing performed at [address] [address] MCH (RBC) [Entitic mass] 29.9 pg Normal 26.0-35.0 [facility] Comment on above: Performed By: #### E SR, HEMOG, B12, CREACT, LIP2, CMPF #### Testing performed at [address] [address] MCHC (RBC) [Mass/Vol] 33.6 g/dL Normal 27.0-37.0 [facility] Comment on above: Performed By: #### E SR, HEMOG, B12, CREACT, LIP2, CMPF #### Testing performed at [address] [address] MCV (RBC) [Entitic vol] 88.9 fL Normal 80.0-100.0 [facility] Comment on above: Performed By: #### E SR, HEMOG, B12, CREACT, LIP2, CMPF #### Testing performed at [address] [address] Platelet mean volume (Bld) [Entitic vol] 8.5 fL Normal 7.4-11.0 [facility] Comment on above: Performed By: #### E SR, HEMOG, B12, CREACT, LIP2, CMPF #### Testing performed at [address] [address] Platelets (Bld) [#/Vol] 331 10*3/uL Normal 130-400 [facility] Comment on above: Performed By: #### E SR, HEMOG, B12, CREACT, LIP2, CMPF #### Testing performed at [address] [address] RBC (Bld) [#/Vol] 4.99 10*6/uL Normal 4.0-5.4 [facility] Comment on above: Performed By: #### E SR, HEMOG, B12, CREACT, LIP2, CMPF #### Testing performed at [address] [address] WBC (Bld) [#/Vol] 6.4 10*3/uL Normal 3.6-11.0 [facility] Comment on above: Performed By: #### E SR, HEMOG, B12, CREACT, LIP2, CMPF #### Testing performed at [address] [address] CMP FASTINGon 09-15-2023 A:G RATIO 1.5 RATIO Normal [facility] Comment on above: Performed By: #### E SR, HEMOG, B12, CREACT, LIP2, CMPF #### Testing performed at [address] [address] ALBUMIN 4.8 G/dl Normal 3.5-5.0 [facility] Comment on above: Performed By: #### E SR, HEMOG, B12, CREACT, LIP2, CMPF #### Testing performed at [address] [address] ALP [Catalytic activity/Vol] 64 U/L Normal 38-126 [facility] Comment on above: Performed By: #### E SR, HEMOG, B12, CREACT, LIP2, CMPF #### Testing performed at [address] [address] ALT [Catalytic activity/Vol] 23 U/L Normal <35 [facility] Comment on above: Performed By: #### E SR, HEMOG, B12, CREACT, LIP2, CMPF #### Testing performed at [address] [address] AST [Catalytic activity/Vol] 24 U/L Normal 14-36 [facility] Comment on above: Performed By: #### E SR, HEMOG, B12, CREACT, LIP2, CMPF #### Testing performed at [address] [address] Bilirubin [Mass/Vol] 0.5 mg/dL Normal 0.2-1.3 [facility] Comment on above: Performed By: #### E SR, HEMOG, B12, CREACT, LIP2, CMPF #### Testing performed at [address] [address] Calcium [Mass/Vol] 9.3 mg/dL Normal 8.4-10.2 [facility] Comment on above: Performed By: #### E SR, HEMOG, B12, CREACT, LIP2, CMPF #### [place] [address] Chloride [Moles/Vol] 106 mmol/L Normal 98-107 [facility] Comment on above: Result Comment: Rosendo barnes note: Triglyceride levels of 600mg/dL or higher may positively bias chloride results by approximately 2.1 mmol Performed By: #### E SR, HEMOG, B12, CREACT, LIP2, CMPF #### [place] [address] CO2 [Moles/Vol] 27 mmol/L Normal 22-30 [facility] Comment on above: Performed By: #### E SR, HEMOG, B12, CREACT, LIP2, CMPF #### [place] [address] Creatinine [Mass/Vol] 0.71 mg/dL Normal 0.70-1.20 [facility] Comment on above: Performed By: #### E SR, HEMOG, B12, CREACT, LIP2, CMPF #### [place] [address] EST. GFR, 125 ml/min/1.73sq.m [facility] Comment on above: Performed By: #### E SR, HEMOG, B12, CREACT, LIP2, CMPF #### [place] [address] EST. GFR,Non 103 ml/min/1.73sq.m [facility] Comment on above: Performed By: #### E SR, HEMOG, B12, CREACT, LIP2, CMPF #### [place] [address] GFR Information Average GFR for 20-29 years old = 116. Normal [facility] Comment on above: Result Comment: Motor Tester kenroy Kidney disease, GFR = <60. Kidney failure, GFR = <15. The GFR estimate is not adjusted for extreme body surface area or acute process, nor has it been validated for women or ethnic groups other than and . Performed By: #### E SR, HEMOG, B12, CREACT, LIP2, CMPF #### Testing performed at [address] [address] Glucose [Mass/Vol] 89 mg/dL Normal 70-100 [facility] Comment on above: Result Comment: NORMAL <100 mg/dL PREDIABETES 101-126 mg/dL DIABETES 126 mg/dL or higher Performed By: #### E SR, HEMOG, B12, CREACT, LIP2, CMPF #### Testing performed at [address] [address] Potassium [Moles/Vol] 4.2 mmol/L Normal 3.5-5.1 [facility] Comment on above: Performed By: #### E SR, HEMOG, B12, CREACT, LIP2, CMPF #### Testing performed at [address] [address] Protein [Mass/Vol] 7.9 g/dL Normal 6.3-8.2 [facility] Comment on above: Performed By: #### E SR, HEMOG, B12, CREACT, LIP2, CMPF #### Testing performed at [address] [address] Sodium [Moles/Vol] 138 mmol/L Normal 137-145 [facility] Comment on above: Performed By: #### E SR, HEMOG, B12, CREACT, LIP2, CMPF #### Testing performed at [address] [address] Urea nitrogen [Mass/Vol] 14 mg/dL Normal 7-20 [facility] Comment on above: Performed By: #### E SR, HEMOG, B12, CREACT, LIP2, CMPF #### Testing performed at [address] [address] ESRon 09-15-2023 ESR (Bld) [Velocity] 5 mm/h Normal 0-15 [facility] Comment on above: Performed By: #### E SR, HEMOG, B12, CREACT, LIP2, CMPF #### Testing performed at [address] [address] LIPID PROFILEon 09-15-2023 Cholesterol [Mass/Vol] 240 mg/dL High 107-217 [facility] Comment on above: Performed By: #### E SR, HEMOG, B12, CREACT, LIP2, CMPF #### Testing performed at [address] [address] Cholesterol in HDL [Mass/Vol] 43 mg/dL Normal 33-75 [facility] Comment on above: Performed By: #### E SR, HEMOG, B12, CREACT, LIP2, CMPF #### Testing performed at [address] [address] Cholesterol in LDL [Mass/Vol] 163 mg/dL High <100 [facility] Comment on above: Performed By: #### E SR, HEMOG, B12, CREACT, LIP2, CMPF #### Testing performed at [address] [address] Cholesterol in VLDL [Mass/Vol] 34 mg/dL High 5-25 [facility] Comment on above: Performed By: #### E SR, HEMOG, B12, CREACT, LIP2, CMPF #### Testing performed at [address] [address] Cholesterol.total/Choles terol in HDL [Mass ratio] 5.58 {ratio} Normal [facility] Comment on above: Result Comment: RISK TOTAL/HDL RATIO MEN WOMEN 1/2 AVERAGE 3.43 3.27 AVERAGE 4.97 4.44 2X AVERAGE 9.55 7.05 3X AVERAGE 23.99 11.04 Performed By: #### E SR, HEMOG, B12, CREACT, LIP2, CMPF #### Testing performed at [address] [address] Triglyceride [Mass/Vol] 171 mg/dL High 0-150 [facility] Comment on above: Performed By: #### E SR, HEMOG, B12, CREACT, LIP2, CMPF #### Testing performed at [address] [address] TSH,REFLEX FREE T4on 024 TSH,REFLEX FREE T4 2.540 uIU/ML Normal 0.465-4.680 [facility] Comment on above: Performed By: #### E SR, HEMOG, B12, CREACT, LIP2, CMPF #### Testing performed at [address] [address] VITAMIN B12on 09-15-2023 Cobalamin (Vitamin B12) [Mass/Vol] 422 pg/mL Normal 239-931 [facility] Comment on above: Performed By: #### E SR, HEMOG, B12, CREACT, LIP2, CMPF #### Testing performed at [address] [address] HPVon 03-05-2023 HPV Negative Normal [facility] Comment on above: Result Comment: Refe rence range: Negative (NOTE) This nucleic acid amplification test detects fourteen high-risk HPV types (16,18,31,33,35,39,45,51,52,56,58,59,66,68) without differentiation. No. of containers..01 ThinPrep Vial PERFORMED AT [facility] PAP IG,RFX HPV ASCUon 2022 . . Normal [facility] . Comment [facility] Comment on above: Result Comment: See below for HPV testing results. DIAGNOSIS: Comment [facility] Comment on above: Result Comment: (NOT E) [...] reports do occur. PATH PROVIDED ICD10: Comment [facility] Comment on above: Result Comment: [id number] PERFORMED BY: Comment [facility] Comment on above: Result Comment: Noy Jordan, Social Service Agency Director (ASCP) RECOMMENDATION: Comment [facility] Comment on above: Result Comment: Sugg est follow up as clinically appropriate. SPECIMEN ADEQUACY: Comment [facility] Comment on above: Result Comment: (NOT E) Satisfactory for evaluation. Endocervical and/or squamous metaplastic cells (endocervical component) are present. TEST METHODOLOGY: Comment Normal [facility] Comment on above: Result Comment: (NOT E) This liquid based ThinPrep(R) pap test was screened with the use of an image guided system. PERFORMED AT [facility] IUD REMOVALon 02-25-2023 Karol Rosenthal MD 02/25/2023 [...] moderate pain. Comments: Post procedure instructions given [facility] Radiology Study observation (narrative) [facility] Provider Note - ED v3on 02-20 [...] a day SIGNIFICANT EVENTS: No documented data. 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 She agrees plan of care she was discharged. Centro Criteria: 0 points; 1% - 2.5% likelihood of strep; No further testing nor antibiotics.Roxy mora Diagnosis: influenza, laryngitis, otitis externa, otitis media, [...] Updated: 19-Mar-2022 15:39 by Kamlesh Meehan (PAC) [facility] Vital Signs Date Time Vital Sign Value Performing Clinician Lito coates 09-19-2024 15:51-0400 Body temperature 97.1 [degF] Dr. Stephanie Mtz MD Work Phone: [facility] 09-19-2024 15:51-0400 Diastolic blood pressure 70 mm[Hg] Dr. Stephanie Mtz MD Work Phone: [facility] 09-19-2024 15:51-0400 Heart rate 66 /min Dr. Stephanie Mtz MD Work Phone: [facility] 09-19-2024 15:51-0400 Respiratory rate 16 /min Dr. Stephanie Mtz MD Work Phone: [facility] 09-19-2024 15:51-0400 SaO2% (BldA) [Mass fraction] 99 % Dr. Stephanie Mtz MD Work Phone: [facility] 09-19-2024 15:51-0400 Systolic blood pressure 119 mm[Hg] Dr. Stephanie Mtz MD Work Phone: [facility] 09-19-2024 13:20-0400 Body height 162.[address] Stephanie Mtz MD Work Phone: [facility] 09-19-2024 13:20-0400 Body mass index (BMI) [Ratio] 42.7 kg/m2 Dr. Stephanie Mtz MD Work Phone: [facility] 09-19-2024 13:20-0400 Body weight [address] Stephanie Mtz MD Work Phone: [facility] [facility] 08-24-2024 11:31-0400 Body height 162.56 cm No Primary Care Physician [facility] 08-24-2024 11:31-0400 Body mass index (BMI) [Ratio] 43.2 kg/m2 No Primary Care Physician [facility] 08-24-2024 11:31-0400 Body weight 114.36 kg No Primary Care Physician [facility] 08-24-2024 11:31-0400 Diastolic blood pressure 74 mm[Hg] No Primary Care Physician [facility] 08-24-2024 11:31-0400 Systolic blood pressure 119 mm[Hg] No Primary Care Physician [facility] 07-14-2024 21:32-0400 Body temperature 97.9 [degF] No Primary Care Physician [facility] 07-14-2024 21:32-0400 Diastolic blood pressure 82 mm[Hg] No Primary Care Physician [facility] 07-14-2024 21:32-0400 Heart rate 81 /min No Primary Care Physician [facility] 07-14-2024 21:32-0400 Respiratory rate 16 /min No Primary Care Physician [facility] 07-14-2024 21:32-0400 SaO2% (BldA) [Mass fraction] 99 % No Primary Care Physician [facility] 07-14-2024 21:32-0400 Systolic blood pressure 134 mm[Hg] No Primary Care Physician [facility] 07-13-2024 07:13-0400 Body height 162.56 cm No Primary Care Physician [facility] 07-13-2024 07:13-0400 Body mass index (BMI) [Ratio] 47.7 kg/m2 No Primary Care Physician [facility] 07-13-2024 07:13-0400 Body weight 126.09 kg No Primary Care Physician [facility] 07-07-2024 12:53-0400 Body mass index (BMI) [Ratio] 47.4 kg/m2 No Primary Care Physician [facility] 07-07-2024 12:53-0400 Body weight 125.36 kg No Primary Care Physician [facility] 07-07-2024 12:53-0400 Diastolic blood pressure 79 mm[Hg] No Primary Care Physician [facility] 07-07-2024 12:53-0400 Systolic blood pressure 128 mm[Hg] No Primary Care Physician [facility] 06-30-2024 09:51-0400 Body height 162.56 cm No Primary Care Physician [facility] 06-30-2024 09:51-0400 Body mass index (BMI) [Ratio] 47.1 kg/m2 No Primary Care Physician [facility] 06-30-2024 09:51-0400 Body weight 124.51 kg No Primary Care Physician [facility] 06-30-2024 09:51-0400 Diastolic blood pressure 83 mm[Hg] No Primary Care Physician [facility] 06-30-2024 09:51-0400 Systolic blood pressure 132 mm[Hg] No Primary Care Physician [facility] 06-23-2024 08:58-0400 Body height 162.56 cm No Primary Care Physician [facility] 06-23-2024 08:58-0400 Body mass index (BMI) [Ratio] 46.8 kg/m2 No Primary Care Physician [facility] 06-23-2024 08:58-0400 Body weight 123.83 kg No Primary Care Physician [facility] 06-23-2024 08:58-0400 Diastolic blood pressure 79 mm[Hg] No Primary Care Physician [facility] 06-23-2024 08:58-0400 Systolic blood pressure 134 mm[Hg] No Primary Care Physician [facility] 06-19-2024 14:21-0400 Diastolic blood pressure 72 mm[Hg] No Primary Care Physician [facility] 06-19-2024 14:21-0400 Heart rate 68 /min No Primary Care Physician [facility] 06-19-2024 14:21-0400 Systolic blood pressure 132 mm[Hg] No Primary Care Physician [facility] 06-19-2024 14:20-0400 SaO2% (BldA) [Mass fraction] 100 % No Primary Care Physician [facility] 06-19-2024 13:56-0400 Body height 162.56 cm No Primary Care Physician [facility] 06-19-2024 13:56-0400 Body mass index (BMI) [Ratio] 46.3 kg/m2 No Primary Care Physician [facility] 06-19-2024 13:56-0400 Body weight 122.46 kg No Primary Care Physician [facility] 06-19-2024 13:49-0400 Body temperature 98 [degF] No Primary Care Physician [facility] 06-19-2024 13:49-0400 Respiratory rate 18 /min No Primary Care Physician [facility] 06-12-2024 09:24-0400 Body height 162.56 cm No Primary Care Physician [facility] 06-12-2024 09:22-0400 Body mass index (BMI) [Ratio] 46.5 kg/m2 No Primary Care Physician [facility] 06-12-2024 09:22-0400 Body weight 123.09 kg No Primary Care Physician [facility] 06-12-2024 09:22-0400 Diastolic blood pressure 68 mm[Hg] No Primary Care Physician [facility] 06-12-2024 09:22-0400 Systolic blood pressure 123 mm[Hg] No Primary Care Physician [facility] 05-29-2024 15:15-0400 Body height 162.56 cm No Primary Care Physician [facility] 05-29-2024 15:15-0400 Body mass index (BMI) [Ratio] 45.8 kg/m2 No Primary Care Physician [facility] 05-29-2024 15:15-0400 Body weight 121.1 kg No Primary Care Physician [facility] 05-29-2024 15:15-0400 Diastolic blood pressure 85 mm[Hg] No Primary Care Physician [facility] 05-29-2024 15:15-0400 Systolic blood pressure 138 mm[Hg] No Primary Care Physician [facility] 04-17-2024 08:26-0500 Body mass index (BMI) [Ratio] 45.3 kg/m2 No Primary Care Physician [facility] 04-17-2024 08:26-0500 Body weight 119.97 kg No Primary Care Physician [facility] 04-17-2024 08:26-0500 Body weight 119.91 kg No Primary Care Physician [facility] 04-17-2024 08:26-0500 Diastolic blood pressure 79 mm[Hg] No Primary Care Physician [facility] 04-17-2024 08:26-0500 Diastolic blood pressure 78 mm[Hg] No Primary Care Physician [facility] 04-17-2024 08:26-0500 Systolic blood pressure 126 mm[Hg] No Primary Care Physician [facility] 04-17-2024 08:26-0500 Systolic blood pressure 133 mm[Hg] No Primary Care Physician [facility] 03-20-2024 08:53-0500 Body mass index (BMI) [Ratio] 44.6 kg/m2 No Primary Care Physician [facility] 03-20-2024 08:53-0500 Body weight 118.04 kg No Primary Care Physician [facility] 03-20-2024 08:53-0500 Diastolic blood pressure 70 mm[Hg] No Primary Care Physician [facility] 03-20-2024 08:53-0500 Systolic blood pressure 122 mm[Hg] No Primary Care Physician [facility] 02-28-2024 11:39-0500 Body mass index (BMI) [Ratio] 43.4 kg/m2 No Primary Care Physician [facility] 02-28-2024 11:39-0500 Body weight 114.98 kg No Primary Care Physician [facility] 02-28-2024 11:39-0500 Diastolic blood pressure 84 mm[Hg] No Primary Care Physician [facility] 02-28-2024 11:39-0500 Systolic blood pressure 139 mm[Hg] No Primary Care Physician [facility] 11-26-2023 02:23-0400 Body temperature 98.29 [degF] Robyn Marker DO Work Phone: [facility] 11-26-2023 02:23-0400 Diastolic blood pressure 58 mm[Hg] Robyn Marker DO Work Phone: [facility] 11-26-2023 02:23-0400 Heart rate 97 /min Robyn Marker DO Work Phone: [facility] 11-26-2023 02:23-0400 Respiratory rate 14 /min Robyn Marker DO Work Phone: [facility] 11-26-2023 02:23-0400 SaO2% (BldA) [Mass fraction] 99 % Robyn Marker DO Work Phone: [facility] 11-26-2023 02:23-0400 Systolic blood pressure 120 mm[Hg] Robyn Marker DO Work Phone: [facility] 11-25-2023 22:04-0400 Body height 162.6 cm Robyn Marker DO Work Phone: [facility] 11-25-2023 22:04-0400 Body mass index (BMI) [Ratio] 40.34 kg/m2 Robyn Marker DO Work Phone: [facility] 11-25-2023 22:04-0400 Body weight 106.59 kg Robyn Marker DO Work Phone: [facility] 10-18-2023 08:48-0400 Diastolic blood pressure 80 mm[Hg] Nydia Zazueta FHA UNDERWRITER-SANITATION ASSOCIATE Work Phone: [facility] 10-18-2023 08:48-0400 Systolic blood pressure 120 mm[Hg] Nydia Zazueta FHA UNDERWRITER-SANITATION ASSOCIATE Work Phone: [facility] 10-18-2023 08:29-0400 Body height 162.6 cm Nydia Zazueta FHA UNDERWRITER-SANITATION ASSOCIATE Work Phone: [facility] 10-18-2023 08:29-0400 Body mass index (BMI) [Ratio] 40.78 kg/m2 Nydia Zazueta APRN-SANITATION ASSOCIATE Work Phone: [facility] 10-18-2023 08:29-0400 Body temperature 97.2 [degF] Nydia Zazueta APRN-SANITATION ASSOCIATE Work Phone: [employer] 10-18-2023 08:29-0400 Body weight 107.78 kg Nydia Zazueta APRN-SANITATION ASSOCIATE Work Phone: [employer] 10-18-2023 08:29-0400 Heart rate 85 /min Nydia Zazueta APRN-SANITATION ASSOCIATE Work Phone: [employer] 10-18-2023 08:29-0400 Respiratory rate 14 /min Nydia Zazueta APRN-SANITATION ASSOCIATE Work Phone: [facility] 10-18-2023 08:29-0400 SaO2% (BldA) [Mass fraction] 97 % Nydia Zazueta APRN-SANITATION ASSOCIATE Work Phone: [facility] 09-13-2023 08:54-0400 Body height 162.6 cm Nancy Sam APRN-SANITATION ASSOCIATE Work Phone: [employer] 09-13-2023 08:54-0400 Body mass index (BMI) [Ratio] 40.96 kg/m2 Nancy Sam FHA UNDERWRITER-SANITATION ASSOCIATE Work Phone: [employer] 09-13-2023 08:54-0400 Body temperature 97.9 [degF] Nancy Sam FHA UNDERWRITER-SANITATION ASSOCIATE Work Phone: [employer] 09-13-2023 08:54-0400 Body weight 108.23 kg Nancy Sam FHA UNDERWRITER-SANITATION ASSOCIATE Work Phone: [employer] 09-13-2023 08:54-0400 Diastolic blood pressure 78 mm[Hg] Nancy Sam FHA UNDERWRITER-SANITATION ASSOCIATE Work Phone: [facility] 09-13-2023 08:54-0400 Heart rate 96 /min Nancy Sam FHA UNDERWRITER-SANITATION ASSOCIATE Work Phone: [facility] 09-13-2023 08:54-0400 SaO2% (BldA) [Mass fraction] 96 % Nancy Sam FHA UNDERWRITER-SANITATION ASSOCIATE Work Phone: [facility] 09-13-2023 08:54-0400 Systolic blood pressure 112 mm[Hg] Nancy Sam FHA UNDERWRITER-SANITATION ASSOCIATE Work Phone: [facility] 06-01-2023 15:54-0400 Body height 162.6 cm Kamlesh Zoran PA-C Work Phone: [facility] 06-01-2023 15:54-0400 Body mass index (BMI) [Ratio] 39.48 kg/m2 Kamlesh Zoran PA-C Work Phone: [facility] 06-01-2023 15:54-0400 Body temperature 98.4 [degF] Kamlesh Zoran PA-C Work Phone: [facility] 06-01-2023 15:54-0400 Body weight 104.33 kg Kamlesh Zoran PA-C Work Phone: [facility] 06-01-2023 15:54-0400 Diastolic blood pressure 90 mm[Hg] Kamlesh Zoran PA-C Work Phone: [facility] 06-01-2023 15:54-0400 Heart rate 84 /min Kamlesh Zoran PA-C Work Phone: [facility] 06-01-2023 15:54-0400 Respiratory rate 16 /min Kamlesh Zoran PA-C Work Phone: [facility] 06-01-2023 15:54-0400 SaO2% (BldA) [Mass fraction] 96 % Kamlesh Zoran PA-C Work Phone: [facility] 06-01-2023 15:54-0400 Systolic blood pressure 131 mm[Hg] Kamlesh Meehan PA-C Work Phone: [facility] 02-25-2023 15:01-0500 Body height 162.6 cm Karol Rosenthal MD Work Phone: [facility] 02-25-2023 15:01-0500 Body mass index (BMI) [Ratio] 38.62 kg/m2 Karol Rosenthal MD Work Phone: [facility] 02-25-2023 15:01-0500 Body weight 102.06 kg Karol Rosenthal MD Work Phone: [facility] 02-25-2023 15:01-0500 Diastolic blood pressure 82 mm[Hg] Karol Rosenthal MD Work Phone: [facility] 02-25-2023 15:01-0500 Heart rate 75 /min Karol Rosenthal MD Work Phone: [facility] 02-25-2023 15:01-0500 Systolic blood pressure 125 mm[Hg] Karol Rosenthal MD Work Phone: [facility] 04-26-2022 09:16-0500 Body height 162.6 cm Lelia Treviño FHA UNDERWRITER-SANITATION ASSOCIATE Work Phone: [facility] 04-26-2022 09:16-0500 Body mass index (BMI) [Ratio] 37.02 kg/m2 Lelia Treviño FHA UNDERWRITER-SANITATION ASSOCIATE Work Phone: [facility] 04-26-2022 09:16-0500 Body temperature 98.49 [degF] Lelia Treviño FHA UNDERWRITER-SANITATION ASSOCIATE Work Phone: [facility] 04-26-2022 09:16-0500 Body weight 97.84 kg Lelia Treviño FHA UNDERWRITER-SANITATION ASSOCIATE Work Phone: [facility] 04-26-2022 09:16-0500 Diastolic blood pressure 89 mm[Hg] Lelia Treviño FHA UNDERWRITER-SANITATION ASSOCIATE Work Phone: [facility] 04-26-2022 09:16-0500 Heart rate 111 /min Lelia Treviño FHA UNDERWRITER-SANITATION ASSOCIATE Work Phone: [facility] 04-26-2022 09:16-0500 Respiratory rate 18 /min Lelia Treviño FHA UNDERWRITER-SANITATION ASSOCIATE Work Phone: [facility] 04-26-2022 09:16-0500 SaO2% (BldA) [Mass fraction] 97 % Lelia Treviño FHA UNDERWRITER-SANITATION ASSOCIATE Work Phone: [facility] 04-26-2022 09:16-0500 Systolic blood pressure 132 mm[Hg] Lelia Treviño FHA UNDERWRITER-SANITATION ASSOCIATE Work Phone: [facility] 03-19-2022 17:04-0500 Body height 166.3 cm Dillan Tavallaee Other Phone: [facility] 03-19-2022 17:04-0500 Body temperature 97.34 [degF] Dillan Tavallaee Other Phone: [facility] 03-19-2022 17:04-0500 Diastolic blood pressure 84 mm[Hg] Dillan Tavallaee Other Phone: [facility] 03-19-2022 17:04-0500 Heart rate 82 /min Dillan Tavallaee Other Phone: [facility] 03-19-2022 17:04-0500 Respiratory rate 16 /min Dillan Tavallaee Other Phone: [facility] 03-19-2022 17:04-0500 SaO2% (BldA) [Mass fraction] 97 % Dillan Tavallaee Other Phone: [facility] 03-19-2022 17:04-0500 Systolic blood pressure 134 mm[Hg] Dillan Tavallaee Other Phone: [facility] 11-28-2021 08:41-0400 Body height 162.6 cm Nancywally Sam FHA UNDERWRITER-SANITATION ASSOCIATE Work Phone: [facility] 11-28-2021 08:41-0400 Body mass index (BMI) [Ratio] 40.17 kg/m2 Nancy Sam FHA UNDERWRITER-SANITATION ASSOCIATE Work Phone: [facility] 11-28-2021 08:41-0400 Body temperature 96.91 [degF] Nancy Liz FHA UNDERWRITER-SANITATION ASSOCIATE Work Phone: [facility] 11-28-2021 08:41-0400 Body weight 106.14 kg Nancy Liz FHA UNDERWRITER-SANITATION ASSOCIATE Work Phone: [facility] 11-28-2021 08:41-0400 Diastolic blood pressure 70 mm[Hg] Nancywally Sam FHA UNDERWRITER-SANITATION ASSOCIATE Work Phone: [facility] 11-28-2021 08:41-0400 Heart rate 105 /min Nancywally Sam FHA UNDERWRITER-SANITATION ASSOCIATE Work Phone: [facility] 11-28-2021 08:41-0400 SaO2% (BldA) [Mass fraction] 97 % Nancywally Sam FHA UNDERWRITER-SANITATION ASSOCIATE Work Phone: [facility] 11-28-2021 08:41-0400 Systolic blood pressure 126 mm[Hg] Nancywally Sam FHA UNDERWRITER-SANITATION ASSOCIATE Work Phone: [facility] 09-08-2021 15:15-0400 Body mass index (BMI) [Ratio] 42.57 kg/m2 Nancy Sam FHA UNDERWRITER-SANITATION ASSOCIATE Work Phone: [facility] 09-08-2021 15:15-0400 Body temperature 97.3 [degF] Nancy Sam FHA UNDERWRITER-SANITATION ASSOCIATE Work Phone: [facility] 09-08-2021 15:15-0400 Body weight 112.49 kg Nancy Liz FHA UNDERWRITER-SANITATION ASSOCIATE Work Phone: [facility] 09-08-2021 15:15-0400 Diastolic blood pressure 62 mm[Hg] Nancywally Sam FHA UNDERWRITER-SANITATION ASSOCIATE Work Phone: [facility] 09-08-2021 15:15-0400 Heart rate 84 /min Nancywally Sam FHA UNDERWRITER-SANITATION ASSOCIATE Work Phone: [facility] 09-08-2021 15:15-0400 SaO2% (BldA) [Mass fraction] 97 % Nancywally Sam FHA UNDERWRITER-SANITATION ASSOCIATE Work Phone: [facility] 09-08-2021 15:15-0400 Systolic blood pressure 114 mm[Hg] Nancywally Sam FHA UNDERWRITER-SANITATION ASSOCIATE Work Phone: [facility] 06-16-2021 16:02-0400 Body mass index (BMI) [Ratio] 44.29 kg/m2 Nancywally Sam FHA UNDERWRITER-SANITATION ASSOCIATE Work Phone: [facility] 06-16-2021 16:02-0400 Body temperature 97.59 [degF] Nancywally Sam FHA UNDERWRITER-SANITATION ASSOCIATE Work Phone: [facility] 06-16-2021 16:02-0400 Body weight 117.03 kg Nancy Sam FHA UNDERWRITER-SANITATION ASSOCIATE Work Phone: [facility] 06-16-2021 16:02-0400 Diastolic blood pressure 72 mm[Hg] Nancywally Sam FHA UNDERWRITER-SANITATION ASSOCIATE Work Phone: [facility] 06-16-2021 16:02-0400 Heart rate 94 /min Nancywally Sam FHA UNDERWRITER-SANITATION ASSOCIATE Work Phone: [facility] 06-16-2021 16:02-0400 SaO2% (BldA) [Mass fraction] 96 % Nancy Sam FHA UNDERWRITER-SANITATION ASSOCIATE Work Phone: [facility] 06-16-2021 16:02-0400 Systolic blood pressure 126 mm[Hg] Nancywally Sam FHA UNDERWRITER-SANITATION ASSOCIATE Work Phone: [facility] 11-27-2020 18:47-0400 Body height 162.5 cm Dillan Tavallaee Other Phone: [facility] 11-27-2020 18:47-0400 Body temperature 98.78 [degF] Dillan Tavallaee Other Phone: [facility] 11-27-2020 18:47-0400 Diastolic blood pressure 96 mm[Hg] Dillan Tavallaee Other Phone: [facility] 11-27-2020 18:47-0400 Heart rate 104 /min Dillan Tavallaee Other Phone: [facility] 11-27-2020 18:47-0400 Respiratory rate 16 /min Dillan Tavallaee Other Phone: [facility] 11-27-2020 18:47-0400 SaO2% (BldA) [Mass fraction] 100 % Dillan Tavallaee Other Phone: [facility] 11-27-2020 18:47-0400 Systolic blood pressure 140 mm[Hg] Dillan Tavallaee Other Phone: [facility] Encounters Encounter Date Encounter Type Care Provider Facility Start: 09-19-2024 Non-patient / Non-visit Dr. Yoselin Mtz MD -[facility] Start: 09-19-2024 ambulatory [facility] Facility: [facility] Start: 09-19-2024 End: 09-19-2024 Admission to same day surgery center Dr[facility] Stephanie Mtz [facility] Start: 09-19-2024 End: 09-19-[address] Stephanie Mtz MD Work Phone: [facility] Start: 09-18-2024 Encounter for other preprocedural examination Stephanie Mtz [facility] Start: 09-18-2024 ambulatory [facility] Facility: [facility] Start: 09-18-2024 Non-patient / Non-visit Dr. Yoselin Mtz MD -[facility] Start: 08-24-2024 End: 08-24-2024 ambulatory No Primary Care Physician [facility] Work Phone: Start: 08-24-2024 End: 08-24-[address] Stephanie Mtz MD -Laboratory Specimen Work Phone: Start: 08-24-2024 End: 08-24-[address] Stephanie Mtz MD -[facility] Work Phone: Start: 08-24-2024 End: 08-24-2024 ambulatory No Primary Care Physician [facility] Work Phone: Start: 08-24-2024 End: 08-24-2024 ambulatory [facility] Facility:[facility] Start: 07-20-2024 End: 07-20-2024 ambulatory SELF REFERRED [facility]: [facility] Start: 07-14-2024 Non-patient / Non-visit Delisa arndt CNM -[facility] Start: 07-13-2024 Non-patient / Non-visit Dr. Yoselin Mtz MD -[facility] Start: 07-13-2024 End: 07-14-2024 Evaluation and management of inpatient Dr. Stephanie [facility] Work Phone: Start: 07-13-2024 ambulatory [place] Facility: [facility] Start: 07-10-2024 End: 07-10-[address] Stephanie Mtz MD -[facility] Work Phone: Start: 07-10-2024 End: 07-10-2024 ambulatory [facility] Facility:[facility] Start: 07-07-2024 End: 07-07-[address] Stephanie Mtz MD -[facility] Work Phone: Start: 07-07-2024 End: 07-07-2024 ambulatory [place] Facility:[facility] Start: 07-03-2024 End: 07-03-2024 ambulatory No Primary Care Physician [facility] Work Phone: Start: 07-03-2024 End: 07-03-[address] Stephanie Mtz MD -[facility] Work Phone: Start: 07-03-2024 ambulatory [place] Facility: [facility] Start: 07-03-2024 End: 07-03-2024 ambulatory [place] Facility:[facility] Start: 06-30-2024 End: 06-30-[address] Britany Davalos DO -[facility] Work Phone: Start: 06-30-2024 End: 06-30-2024 ambulatory [facility] Facility:[facility] Start: 06-27-2024 End: 06-27-2024 ambulatory No Primary Care Physician [facility] Work Phone: Start: 06-27-2024 End: 06-27-[address] Stephanie Mtz MD -Ultrasound, [facility] Work Phone: Start: 06-27-2024 End: 06-27-2024 ambulatory [facility] Facility:[facility] Start: 06-23-2024 End: 06-23-2024 ambulatory No Primary Care Physician [facility] Work Phone: Start: 06-23-2024 End: 06-23-2024 Patient encounter procedure Lara Cespedes CNM -Laboratory, Specimen Work Phone: Start: 06-23-2024 End: 06-23-2024 Patient encounter procedure Lara Cespedes CNM -[facility] Work Phone: Start: 06-23-2024 End: 06-23-2024 ambulatory [facility] Facility:[facility] Start: 06-23-2024 End: 06-23-2024 ambulatory [facility] Facility:[facility] Start: 06-19-2024 ambulatory Lara Cespedes Facility :[facility] Start: 06-19-2024 Non-patient / Non-visit Lara Albertjie [place] -[facility] Start: 06-19-2024 End: 06-19-2024 Patient encounter procedure Lara Cespedes CNM -[facility] Work Phone: Start: 06-19-2024 End: 06-19-2024 ambulatory No Primary Care Physician [facility] Work Phone: Start: 06-12-2024 End: 06-12-2024 ambulatory No Primary Care Physician [facility] Work Phone: Start: 06-12-2024 End: 06-12-[address] Stephanie Mtz MD -[facility] Work Phone: Start: 06-12-2024 End: 06-12-[address] Britany Davalos DO -[facility] Work Phone: Start: 06-12-2024 End: 06-12-2024 ambulatory Nancy Sam Facility:[facility] Start: 06-12-2024 End: 06-12-2024 ambulatory [place] Facility:[facility] Start: 05-29-2024 End: 05-29-2024 Patient encounter procedure Lara [place] -[facility] Work Phone: Start: 05-29-2024 End: 05-29-2024 ambulatory [place] Facility:[facility] Start: 05-23-2024 End: 05-23-2024 ambulatory No Primary Care Physician [facility] Work Phone: Start: 05-23-2024 End: 05-23-[address] Stephanie Mtz MD -Ultrasound, [facility] Work Phone: Start: 05-23-2024 End: 05-23-2024 ambulatory Nancy Sam Facility:[facility] Start: 05-15-2024 End: 05-15-2024 Patient encounter procedure Lara Cespedes CNM -[facility] Work Phone: Start: 05-15-2024 End: 05-15-2024 ambulatory Nancywally Sam Facility:[facility] Start: 04-25-2024 End: 04-25-2024 Patient encounter procedure [place] Adair HAND STONER-C -Laboratory Work Phone: Start: 04-25-2024 End: 04-25-2024 ambulatory Nancy Sam Facility:[facility] Start: 04-17-2024 End: 04-17-[address] Stephanie Mtz MD -[facility] Work Phone: Start: 04-17-2024 End: 04-17-2024 ambulatory No Primary Care Physician Facility:[facility] Start: 04-17-2024 End: 04-17-2024 ambulatory Stephanie Mtz Facility:[facility] Start: 03-20-2024 End: 03-20-[address] Britany Davalos DO -[facility] Work Phone: Start: 03-20-2024 End: 03-20-2024 ambulatory Britany Davalos Facility:[facility] Start: 03-10-2024 End: 03-10-2024 Patient encounter procedure Santa [place] HAND STONER-C -Ultrasound, [facility] Work Phone: Start: 03-10-2024 End: 03-10-2024 ambulatory Santa [place] HAND STONER Facility:[facility] Start: 02-28-2024 End: 02-28-2024 Patient encounter procedure Santa [place] HAND STONER-C -[facility] Work Phone: Start: 02-28-2024 End: 02-28-2024 ambulatory Santa Giov[place] HAND STONER Facility:[facility] Start: 01-25-2024 End: 01-25-2024 ambulatory Stephanie Mtz Facility:[facility] Start: 01-24-2024 End: 01-24-2024 ambulatory No Primary Care Physician Facility:[facility] Start: 12-30-2023 End: 12-30-2023 ambulatory Lara Cespedes Facility:[facility] Start: 12-30-2023 End: 12-30-2023 ambulatory Lara Cespedes Facility:[facility] Start: 12-17-2023 ambulatory No Primary Car e Physician Facility:[facility] Start: 11-25-2023 End: 11-26-2023 Emergency department patient visit Robyn Young DO Work Phone: [facility] Start: 10-18-2023 End: 10-18-2023 Office outpatient visit 25 minutes Nydia Zazueta FHA UNDERWRITER-SANITATION ASSOCIATE Work Phone: [facility] Comment on above: Anxiety and depressi on (Primary Dx); Elevated LDL cholesterol level; Obesity, Class III, BMI 40-49.9 (morbid obesity); Constipation, unspecified constipation type Start: 10-18-2023 ambulatory SELF [facility] Start: 09-15-2023 ambulatory NANCY J [facility] Start: 09-13-2023 End: 09-13-2023 Office outpatient visit 25 minutes Nancy Sam FHA UNDERWRITER-SANITATION ASSOCIATE Work Phone: [facility] Comment on above: Depression, unspecif ied depression type (Primary Dx); Other fatigue; Anxiety disorder, unspecified type; Insomnia, unspecified type; BMI 40.0-44.9, adult; Binge eating Start: 09-13-2023 ambulatory SELF [facility] Start: 06-01-2023 End: 06-01-2023 ambulatory NANCYWALLY FLORES [facility] Start: 06-01-2023 End: 06-01-2023 Patient encounter procedure Kamlesh Meehan PA-C Work Phone: [facility] Comment on above: Eustachian tube dysf unction, left (Primary Dx); Acute pharyngitis, unspecified etiology; Subacute rhinosinusitis Start: 02-25-2023 End: 02-25-2023 Initial preventive medicine new pt age 18-39yrs Karol Rosenthal MD Work Phone: [facility] 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: Well woman exam with routine gynecological exam (Primary Dx); Encounter for screening for cervical cancer; Encounter for breast cancer screening using non-mammogram modality; IUD (intrauterine device) in place; Encounter for IUD removal Start: 02-25-2023 End: 02-25-2023 Patient encounter procedure Karol Rosenthal MD Work Phone: [facility] Work Phone: Start: 02-25-2023 ambulatory [facility] Start: 02-25-2023 Encounter for gynecological examination (general) (routine) without abnormal findings [facility] Start: 04-26-2022 End: 04-26-2022 Office outpatient visit 15 minutes Lelia Treviño FHA UNDERWRITER-SANITATION ASSOCIATE Work Phone: [facility] Comment on above: Left acute otitis me sahil (Primary Dx); Acute upper respiratory infection Start: 03-19-2022 End: 03-19-2022 Emergency department patient visit Kamlesh Meehan [place] [id number] Start: 11-28-2021 End: 11-28-2021 Office outpatient visit 25 minutes Nancy Sam FHA UNDERWRITER-SANITATION ASSOCIATE Work Phone: [facility] Comment on above: Adult BMI 40.0-44.9 kg/sq m; Anxiety; Depression, unspecified depression type Start: 09-08-2021 End: 09-08-2021 Office outpatient visit 15 minutes Nancy Sam FHA UNDERWRITER-SANITATION ASSOCIATE Work Phone: [facility] Comment on above: Adult BMI 40.0-44.9 kg/sq m (Primary Dx); Anxiety; Depression, unspecified depression type Start: 06-16-2021 End: 06-16-2021 Office outpatient visit 25 minutes Nancy Sam FHA UNDERWRITER-SANITATION ASSOCIATE Work Phone: [facility] Comment on above: Anxiety (Primary Dx) ; Depression, unspecified depression type; Adult BMI 40.0-44.9 kg/sq m; Acute right-sided low back pain, unspecified whether sciatica present; Eczema, unspecified type Start: 11-27-2020 End: 11-27-2020 Emergency department patient visit Kamlesh Meehan [facility] Start: 06-24-2018 End: 06-24-2018 Patient encounter procedure Nancy Sam Work Phone: [facility] Comment on above: , unspecifi ed gestational age (Primary Dx) Start: 06-24-2018 End: 06-24-2018 Telephone encounter Nancy Sam Work Phone: [facility] Comment on above: Appointment Start: 10-30-2017 Patient encounter Facil [id number] Start: 04-13-2017 End: 04-14-2017 Ambulatory Dillanmaria guadalupe Blancospencer Facility:[facility] Internal Medicine Procedures Date Procedure Procedure Detail Performing Clinician Start: 09-19-[address] Stephanie Mtz MD Work Phone: Start: 08-24-2024 Gram stain microscopy No Primary Care Physician Start: 08-24-2024 Source specific culture No Primary Care Physician Start: 07-13-2024 Serologic test for syphilis No Primary Care Physician Start: 07-10-2024 Ultrasonography for biophysical profile without non-stress testing No Primary Care Physician Start: 07-03-2024 Ultrasonography for biophysical profile without non-stress testing No Primary Care Physician Start: 06-27-2024 Ultrasonography for biophysical profile without non-stress testing No Primary Care Physician Start: 06-23-2024 Beta-hemolytic Streptococcus culture No Primary Care Physician Start: 06-19-2024 Ultrasonography for biophysical profile without non-stress testing No Primary Care Physician Start: 06-12-2024 Ultrasonography for biophysical profile without non-stress testing No Primary Care Physician Start: 05-23-2024 Ultrasound scan for growth No Primary Care Physician Start: 03-10-2024 Ultrasonography in first trimester No Primary Care Physician Start: 11-26-2023 Ct abdomen & pelvis w/contrast material Robyn J Marker DO Work Phone: Start: 11-26-2023 Us preg uterus real time w/image dcmtn transvag Robyn J Marker DO Work Phone: Start: 11-25-2023 Urinalysis, reagent strip without microscopy Robyn J Marker DO Work Phone: Start: 11-25-2023 End: 11-25-2023 Culture bacterial blood aerobic w/id isolates Robyn J Marker DO Work Phone: Start: 11-25-2023 Albumin serum plasma/whole blood Robyn Young DO Work Phone: Start: 11-25-2023 Blood typing serologic abo Robyn last DO Work Phone: Start: 11-25-2023 Complete blood count with white cell differential, automated Robyn Young DO Work Phone: Start: 02-25-2023 Removal intrauterine device iud Karol Rosenthal MD Work Phone: Start: 05-18-2020 Lipid 1996 panel - Serum or Plasma Kamlesh Meehan PA-C Work Phone: H/O: surgery Status post bila teral salpingectomy Dr. Stephanie Mtz MD Work Phone: Plan of Treatment Date Care Activity Detail Author Start: 01-05-2044 Zoster Vaccines (1 of 2) Zoste r Vaccines (1 of 2) [facility] Start: 05-18-2025 Lipid panel Lipid Panel [facility] Start: 09-19-2024 Patient discharge [facility] Start: 09-19-2024 Ambulation without limitation [facility] Start: 09-19-2024 Medical regimen orde rs management [facility] Start: 09-19-2024 Medication education [facility] Start: 09-19-2024 Procedure discontinued [facility] Start: 09-19-2024 Taking patient vital signs [facility] Start: 09-19-2024 Vital signs measurements [facility] Start: 09-19-2024 [facility] Start: 07-14-2024 Patient discharge [facility] Start: 07-13-2024 Documentation procedure [facility] Start: 07-13-2024 Administration of medication [facility] Start: 07-13-2024 Application of ice collar, cap or bag [facility] Start: 07-13-2024 Catheterization of vein [facility] Start: 07-13-2024 Introduction of urin elías catheter [facility] Start: 07-13-2024 Measuring intake and output [facility] Start: 07-13-2024 Notification of physician [facility] Start: 07-13-2024 Procedure discontinued [facility] Start: 07-13-2024 Provision of activit y privileges [facility] Start: 07-13-2024 Vital signs measurements [facility] Start: 07-13-2024 End: 07-13-2024 [facility] Start: 07-13-2024 Admission procedure [facility] Start: 07-13-2024 Consultation [facility] Start: 06-27-2024 Biophysical pr ofile panel US [facility] Start: 06-27-2024 Ultrasonography for biophysical profile without non-stress testing Biophysical Prof W/O Non Stres [facility] Start: 06-27-2024 Ultrasound scan for growth [facility] Start: 06-19-2024 Nonstress test [facility] Start: 06-19-2024 Obstetric monitoring [facility] Start: 06-19-2024 Vital signs measurements [facility] Start: 06-19-2024 [facility] Start: 02-26-2024 Screening for malign ant neoplasm of cervix CERVICAL CANCER SCREENING DISCUSSION [facility] Start: 12-20-2023 End: 12-20-2023 Patient encounter procedure 12/20/2023 8:20 AM EDT Office Visit [facility] [address] [place] [phone] Nydia Zazueta, FHA UNDERWRITER-SANITATION ASSOCIATE [address] [place] [address] [facility] Start: 11-25-2023 End: 11-24-2024 US Pelvis transvaginal US PELVIC W TRANSVAGINAL Imaging Routine Lower abdominal pain Expected: 11/25/2023, Expires: 11/24/2024 [facility] Comment on above: Expected: 11/25/2023 , Expires: 11/24/2024 Start: 11-21-2023 COVID-19 VACCINE ( season) COVID-19 VACCINE () [facility] Start: 11-21-2023 Influenza vaccination [facility] [employer] Start: 10-14-2023 End: 10-14-2023 Patient encounter procedure 10/14/2023 1:50 PM EDT Office Visit [facility] [address] [place] [phone] Nancy Sam, FHA UNDERWRITER-SANITATION ASSOCIATE [address] [place] [phone] [facility] Start: 09-13-2023 End: 09-12-2024 C-reactive protein C REACTIVE PROTEIN Lab Routine Other fatigue Expected: 09/13/2023, Expires: 09/12/2024 [facility] Comment on above: Expected: 09/13/2023 , Expires: 09/12/2024 Start: 09-13-2023 End: 09-12-2024 CBC,PLATELETS CBC,PLATELETS Lab Routine Other fatigue Expected: 09/13/2023, Expires: 09/12/2024 [facility] Comment on above: Expected: 09/13/2023 , Expires: 09/12/2024 Start: 09-13-2023 End: 09-12-2024 Comprehensive metabolic 2000 panel - Serum or Plasma COMPREHENSIVE METABOLIC PANEL Lab Routine Other fatigue Expected: 09/13/2023, Expires: 09/12/2024 [facility] Comment on above: Expected: 09/13/2023 , Expires: 09/12/2024 Start: 09-13-2023 End: 09-12-2024 Cyanocobalamin vitamin b-12 VITAMIN B12 Lab Routine Other fatigue Expected: 09/13/2023, Expires: 09/12/2024 [facility] Comment on above: Expected: 09/13/2023 , Expires: 09/12/2024 Start: 09-13-2023 End: 09-12-2024 LIPID PANEL W CALCULATED LDL LIPID PANEL W CALCULATED LDL Lab Routine Other fatigue BMI 40.0-44.9, adult Expected: 09/13/2023 (Approximate), Expires: 09/12/2024 [facility] Comment on above: Expected: 09/13/2023 (Approximate), Expires: 09/12/2024 Start: 09-13-2023 End: 09-12-2024 SEDIMENTATION RATE, AUTOMATED SEDIMENTATION RATE, AUTOMATED Lab Routine Other fatigue Expected: 09/13/2023, Expires: 09/12/2024 [facility] Comment on above: Expected: 09/13/2023 , Expires: 09/12/2024 Start: 09-13-2023 End: 09-12-2024 TSH W/FT4 REFLEX TSH W/FT4 REFLEX Lab Routine Other fatigue Depression, unspecified depression type Anxiety disorder, unspecified type Insomnia, unspecified type BMI 40.0-44.9, adult Expected: 09/13/2023, Expires: 09/12/2024 [facility] Comment on above: Expected: 09/13/2023 , Expires: 09/12/2024 Start: 09-13-2023 End: 09-12-2024 VITAMIN D (25-HYDROXY,TOTAL) VITAMIN D (25-HYDROXY,TOTAL) Lab Routine Other fatigue Expected: 09/13/2023, Expires: 09/12/2024 [facility] Comment on above: Expected: 09/13/2023 , Expires: 09/12/2024 Start: 11-20-2022 COVID-19 VACCINE ( season) COVID-19 VACCINE () [facility] Start: 11-20-2022 COVID-19 Vaccine ( season) COVID-19 Vaccine () [facility] Start: 11-20-2022 Influenza vaccination INFLUENZA VACC INE (#1) [facility] Start: 05-22-2022 End: 05-22-2022 Patient encounter procedure 05/22/2022 Office Visit [facility] Nancy Sam, FHA UNDERWRITER-SANITATION ASSOCIATE [address] [place] [phone] [facility] Start: 11-28-2021 End: 11-28-2021 Patient encounter procedure 11/28/2021 Office Visit [facility] Medicine Nancy Sam, FHA UNDERWRITER-SANITATION ASSOCIATE [address] [place] [phone] [facility] Start: 11-20-2021 Influenza vaccination A [facility] Start: 09-08-2021 End: 09-08-2021 Patient encounter procedure 09/08/2021 Office Visit Family Medicine Nancy Sam, FHA UNDERWRITER-SANITATION ASSOCIATE [address] [place] [phone] [facility] Start: 11-20-2020 Influenza vaccination INFLUENZA VACC INE (#1) [facility] Start: 11-20-2018 Influenza vaccination INFLUENZ A VACCINE (Season Ended) [facility] Start: 01-05-2016 DTaP/Tdap/Td Vaccine s (1 - Tdap) DTaP/Tdap/Td Vaccines (1 - Tdap) [facility] Start: 05-18-2015 Varicella vaccination Varicell a Vaccines (1 of 2 - 2-dose childhood series) [facility] Start: 2015 Screening for malign ant neoplasm of cervix [facility] Start: 2013 Hepatitis B vaccination HEP B VACCINE (1 of 3 - 19+ 3-dose series) [facility] Start: 2013 Third diphtheria, te tanus and acellular pertussis (DTaP) vaccination TDAP (ADULT) [facility] Start: 01-05-2012 Hepatitis C screening Hepatitis C Sc reening [facility] Start: 01-05-2012 Tetanus vaccination TETANUS [facility] Start: 2010 Screening for Chlamy sahil trachomatis CHLAMYDIA SCREEN [facility] Start: 2009 HIV screening HIV SCREENING DISCUSSION [facility] Start: 2009 Vaccination for eliezer n papillomavirus HPV VACCINE ADOL (1 - Female 3-dose series) [facility] Start: 2007 HIV screening HIV SCREENING DISCUSSION [facility] Start: 01-05-2000 PNEUMOCOCCAL VACCINE SERIES (1 of 2 - PPSV23) PNEUMOCOCCAL VACCINE SERIES (1 of 2 - PPSV23) [facility] Start: 1999 COVID-19 VACCINE (#1) COVID-19 VACCI NE (#1) [facility] Start: 1999 COVID-19 VACCINE (1) COVID-19 VACCIN E (1) [facility] Start: 1994 COVID-19 VACCINE (#1) COVID-19 VACCI NE (#1) [facility] Start: 1994 GONORRHEA SCREEN GONORRHEA SCREEN [facility] Start: 1994 Hepatitis B Vaccines (1 of 3 - 3-dose series) Hepatitis B Vaccines (1 of 3 - 3-dose series) [facility] Start: 1994 Hepatitis C antibody , confirmatory test HEPATITIS C VIRUS SCREENING [facility] Start: 1994 Hepatitis C screening HEPATITI S C VIRUS SCREENING [facility] Start: 1994 HIV screening HIV Screening [facility] Start: 1994 [facility] Bacteria identified in Blood by Culture [facility] Biophysical pr ofile panel US [facility] PAP IG, RFX HPV ASCU PAP IG, RFX HPV ASCU Cytology Routine 02/25/2023 3:10 PM EST [facility] Patient Education OB Triage: Ret urn to Hospital or Notify Physician if you Experience: [facility] Work Phone: Patient referral [facility] Work Phone: End: 11-25-2023 Throat culture [facility] Comment on above: One Time for 1 Occur rences starting 11/25/2023 until 11/25/2023 Ultrasound scan for growth [facility] Immunizations Immunization Date Immunization Notes Care Provider Fa go 05-29-2024 tetanus toxoid, redu pipe diphtheria toxoid, and acellular pertussis vaccine, adsorbed No Primary Care Physician [facility] 02-21-2019 influenza, injectabl e, quadrivalent, preservative free Nancy Sam FHA UNDERWRITER-SANITATION ASSOCIATE Work Phone: [facility] 02-21-2019 influenza virus vaccine, unspecified formulation Nancy Sam FHA UNDERWRITER-SANITATION ASSOCIATE Work Phone: [facility] 04-20-2015 measles, mumps and rubella virus vaccine Nancy Sam FHA UNDERWRITER-SANITATION ASSOCIATE Work Phone: [facility] Payers Date Payer Category Payer Self-pay 2023 Unknown [id number] 2020 Unknown [id number] 2017 Unknown 2017 Unknown [employer] [place] xxxxxxxxxxxx 2017-Present [id number] 1994 Unknown [id number] 2.16.840.1.952875.3.579.2.106 9 1994 Unknown [id number] 2.16.840.1.438536.3.579.2.124 3 1994 Unknown [id number] 2.16.840.1.776802.3.579.2.983 1994 Unknown [id number] 2.16.840.1.209752.3.579.2.983 1994 Unknown [id number] 2.16.840.1.320731.3.579.2.983 1994 Unknown [id number] 2.16.840.1.045366.3.579.2.983 1994 Unknown [id number] 2.16.840.1.658330.3.579.2.983 1994 Unknown [id number] 2.16.840.1.564911.3.579.2.479 Unknown [id number] Unknown [id number] 2.16.840.1.262523.3.579.2.462 Unknown [id number] 2.16.840.1.801340.3.579.2.462 Unknown [id number] 2.16.840.1.083853.3.579.2.462 Unknown [id number] 2.16.840.1.913010.3.579.2.462 Unknown [id number] 2.16.840.1.367473.3.579.2.462 Unknown [id number] 2.16.840.1.933389.3.579.2.462 Unknown [id number] 2.16.840.1.109106.3.579.2.462 Unknown [id number] 2.16.840.1.399392.3.579.2.462 Unknown [id number] 2.16.840.1.474207.3.579.2.462 Unknown [id number] 2.16.840.1.822992.3.579.2.462 Unknown [id number] 2.16.840.1.683734.3.579.2.462 Unknown [id number] 2.16840.1.488716.3.579.2.462 Unknown [id number] 2.16840.1.579582.3.579.2.462 Unknown [id number] 2.16840.1.906916.3.579.2.462 Unknown [id number] 2.16840.1.794243.3.579.2.462 Unknown [id number] 2.16840.1.292812.3.579.2.462 Unknown [id number] 2.16840.1.900155.3.579.2.462 Unknown [id number] 2.16.840.1.268418.3.579.2.462 Unknown [id number] 2.840.1.841953.3.579.2.462 Unknown [id number] 2.16840.1.697922.3.579.2.462 Unknown [id number] 2.16.840.1.380144.3.579.2.462 Unknown [id number] 2.16.840.1.307342.3.579.2.462 Unknown [id number] 2.16.840.1.154287.3.579.2.462 Unknown [id number] 2.16840.1.532532.3.579.2.462 Unknown [id number] 2.16.840.1.780366.3.579.2.462 Unknown [id number] 2.16.840.1.420898.3.579.2.462 Unknown [id number] 2.16.840.1.909376.3.579.2.462 Unknown [id number] 2.16.840.1.911425.3.579.2.462 Unknown [id number] 2.16.840.1.635521.3.579.2.462 Unknown [id number] 2.16.840.1.209507.3.579.2.462 Unknown [id number] 2.16840.1.653663.3.579.2.462 Unknown [id number] 2.16.840.1.779492.3.579.2.462 Unknown [id number] 2.16840.1.783281.3.579.2.462 Unknown [id number] 2.16840.1.658960.3.579.2.462 Social History Date Type Detail Facility Start: 12-27-2017 End: 07-19-2020 Tobacco smoking status RIIS Current some day smoker [facility] Start: 09-09-2017 Tobacco Comment social [facility] Start: 09-09-2017 Alcohol Comment rare [facility] Start: 1995 Sex Assigned At Not on file A JENNIFER [employer] Tobacco smoking consumption unknown [facility] End: 06-08-2021 History of tobacco use Cigar Smoker [facility] Start: 07-19-2020 End: 05-22-2022 Tobacco use and exposure Smokeless tobacco non-user [facility] Start: 06-16-2021 End: 02-25-2023 Alcohol intake Current drinker of alcohol (finding) [facility] Start: 07-19-2020 End: 05-22-2022 Tobacco Comment 2-3 times a week [facility] Start: 09-08-2021 End: 09-05-2024 Tobacco smoking status NHIS Ex-smoker [facility] End: 06-08-2021 History of tobacco use Current smoker [facility] Start: 02-25-2023 End: 10-18-2023 History of Social function [facility] Start: 02-25-2023 End: 10-18-2023 Tobacco use panel [facility] Adolescent depressio n screening assessment 13 [facility] Start: 08-31-2017 Gender identity Identifies as female gender (finding) [facility] Start: 06-01-2023 Tobacco smoking status NHIS Never smoked tobacco [facility] Work Phone: Start: 06-01-2023 Alcohol intake Ex-drinker (finding) [facility] Work Phone: Start: 05-22-2023 End: 06-01-2023 Exposure to SARS-CoV-2 (event) Not sure [facility] Start: 09-13-2023 End: 11-25-2023 Alcoholic beverage intake Lifetime non-drinker (finding) [facility] Start: 01-13-2019 None None [facility] Start: 06-04-2024 End: 07-14-2024 Sex Female (finding) [facility] Start: 1995 Sex Assigned At Female W [facility] NEGATED: Highlighted row Not [facility] Medical Equipment Procedure Code Equipment Code Equipment [...] Diagnostic (Blood Glucose Test) strip Start: 04-25-2024 End: 08-24-2024 Lancets misc Start: 04-25-2024 End: 08-24-2024 Blood Sugar Diagnostic (Blood Glucose Test) strip Start: 04-25-2024 End: 08-24-2024 Lancets misc Start: 04-25-2024 End: 08-24-2024 Blood Sugar Diagnostic (Blood Glucose Test) strip Start: 04-25-2024 End: 08-24-2024 Lancets misc Start: 04-25-2024 End: 08-24-2024 Goals Date Patient Goal Desired Activity /State Mental Status Date Assessment Result Facility 09-19-2024 Cognitive function Level Of Cons ciousness Awake;Alert [facility] Work Phone: 09-19-2024 Cognitive function Voice/Name [facility] Work Phone: Clinical Notes 06-16-2021 to 09-19-2024 Note Date & Type Note Facility 09-19-2024 Discharge summary [facility] 09-19-2024 Procedure note [facility] 09-19-2024 Consult note Note Date/Time September 19, 2024 2:15pm [facility] Medical Records Department [address] [place] [address] Pre-Anesthesia Evaluation 09/19/24 1413 MR#: [id number] Acct: [id number] Name: YUSRA FUENTES Rep #:[id number] : 1995 29 From: Melvin Mcgee MD PCP: KULDIP Marroquin Status:REG SD C Y Race: N Location: [place] [address] ASA Classification* ASA Classification ASA Classification: 3 Assessment & Plan Anesthesia* Anesthesia Assessment Anesthesia Assessment: Discussed sedation and/or anesthesia options, risks, benefits, and alternatives with patient/parents/legal guardian/POA. Questions invited. The patient/parents/legal guardian/POA seems to understand and agrees to proceedwith anesthesia plan. Reviewed the physical assessment, medical history, allergy history and patient home medications list prior to surgery/procedure/anesthetic and documented any changes. Performed airway and anesthesia risk assessments. Anesthesia Type Anesthesia Type: General History Source History Obtained from:: Patient and Chart Anesthesia Focused Assessment* Temperature: 98.4 F Pulse Rate: 70 Blood Pressure: 117/69 Respiratory Rate: 16 Pulse Ox: 98 Oxygen Delivery Method: Room Air Airway Assessment Mouth opens: >3 cm Mallampati Score: II Teeth Condition: Intact and Chipped/Broken (bottom front tooth slightly chipped) Labs Anesthesia Preop lab: CBC WBC 7.7 K/mm3 (4.4-11.0) 09/11/24 09:44 09/11/24 RBC 4.73 M/mm3 (4.2-5.4) 09/11/24 09:44 09/11/24 Hgb 13.4 g/dL (12.0-15.0) 09/11/24 09:44 09/11/24 Hct 40.9 % (37-47) 09/11/24 09:44 09/11/24 Plt Count 272 K/mm3 (150-450) 09/11/24 09:44 09/11/24 CHEMISTRY Potassium 4.1 mmol/L (3.5-5.1) 12/30/23 09:46 12/30/23 Sodium 137 mmol/L (136-145) 12/30/23 09:46 12/30/23 BUN 9 mg/dL (7-18) 12/30/23 09:46 12/30/23 Creatinine 0.65 mg/dL (0.55-1.02) 12/30/23 09:46 12/30/23 Glucose 93 mg/dL (74-106) 12/30/23 09:46 12/30/23 POC Glucose 83 mg/dL (74-106) 07/14/24 08:39 07/14/24 TSH 3.240 uIU/mL (0.358-3.740) 12/30/23 09:46 12/20 COAG Urine Test Negative Negative 09/19/24 13:05 09/19/24 Pre-Assessment Diagnosis/Proposed Procedure Planned Operative Procedure(s): LAPAROSCOPIC SALPINGECTOMY CHARLES Anesthesia History 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 When Was Last Pacemaker Check QUESTION #4 FULL TEXT: You/Your Family Experience fever (hyperthermia) with Anesthesia Last Oral Intake Last Oral intake: Last Oral Intake NPO since 09:00 09/19/24 13:20 Meds taken in AM with sips of No 09/19/24 13:20 water? 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: PONV - roll forming machine set up operator Female Yes 09/05/24 15:18 HX of Motion Sickness No 09/05/24 15:18 HX of N/V After Surgery No 09/05/24 15:18 Non-Smoker Yes 09/05/24 15:18 Duration of Surgery greater Yes 09/05/24 15:18 than 60 minutes Number of Risk Factors 3 09/05/24 15:18 PONV Score Moderate Risk 09/05/24 15:18 Height & Weight Height & Weight: Anesthesia: Height & Weight Height 5 ft 4 in 09/19/24 13:20 Weight: 113 kg 09/19/24 13:20 Body Mass Index (BMI) 42.7 09/19/24 13:20 Respiratory Assessment Respiratory Assessment - roll forming machine set up operator: Respiratory Tract Infection Hx - roll forming machine set up operator Hx Respiratory Tract Infection No 09/05/24 15:18 STOP Sleep Apnea STOP Sleep Apnea - roll forming machine set up operator: STOP Sleep Apnea - roll forming machine set up operator Hx Hypertension No 09/05/24 15:18 Hx Sleep Apnea No 09/05/24 15:18 CPAP BIPAP Do you snore loudly (louder No 09/05/24 15:18 than talking or can be heard Do you often feel tired/ No 09/05/24 15:18 fatigued/ sleepy during daytime? Has anyone observed you stop No 09/05/24 15:18 breathing during sleep? STOP Results Negative 09/05/24 15:18 QUESTION #5 FULL TEXT : Do you snore loudly (louder than talking or can be heard through closed doors)? 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 Specify any problems Hx of Preganancy in last 3 No 09/05/24 15:18 Months Nurse Filling Out Transfusion [email or web address] 09/05/24 15:18 & Questions: Date: 09/05/24 09/05/24 15:18 Time: 15:21 09/05/24 15:18 Patient unable to answer at this time (ie. confused, unrespo /Reproduction History /Reproductive History - roll forming machine set up operator: /Reproductive Hx- roll forming machine set up operator Hx Now No 09/05/24 15:18 Gestational Age (in weeks): EDC: Hx Hx Para Hx Section SAB Yes 09/05/24 15:18 Active Medications Active Medications: Current Medications Generic Name Dose Route Start Last Admin Trade Name Freq PRN Reason Stop Dose Admin Lactated Ringer's 1,000 mls @ 999 mls/hr 09/19/24 14:30 09/19/24 13:34 IV 09/19/24 15:30 999 mls/hr .Q1H1M DUY Administration Lactated Ringer's 1,000 mls @ 15 mls/hr 09/19/24 13:15 IV .Q48H DUY PFSH Medical History Gestational diabetes History of pulmonary embolism Depression Psoriasis Seasonal allergies 39 weeks gestation of Home Medications ?Medication ?Instructions ?Recorded ?Last Taken ?Type vits,calcium no.78-iron 1 tab PO DAILY pregna ncy 04/18/07/12/24 History fumarate-folic acid 29 mg-1 mg tablet (Prenatabs FA) lactobacillus combination no.4 3 3,000 mmu cells PO QD AY 08/24/24 Unknown History billion cell capsule (Probiotic) Allergy/AdvReac Type Severity Reaction Status Date / Time mushroom Allergy Swelling Verified 09/05/24 15:16 adhesive tape AdvReac RASH Verified 09/05/24 15:24 Family History Mother Heart disease Hypothyroidism Grandmother , great-grandma Breast cancer Social History (Updated 08/24/24 @ 11:34 by Hilary Boyle) adopted: No household members: spouse and children number of children: 3 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 Physical Exam Const alert and oriented x3 Neck full ROM Resp normal respiratory effort, normal air movement and clear to auscultation bilaterally Cardio regular rate and regular rhythm Extremity full ROM 09/19/24 1415 <Electronically signed by Melvin Moore> Date _ Melvin Mcgee MD Cosigner Signature: Date CC: ~ Signed [facility] Work Phone: 1(133) 350-818907-01-2025 History and physical note Author Stephanie Mtz [facility] Note Date/Time September 19, 2024 1:40p m [facility] Medical Records Department [address] [place] [address] History & Physical Exam 09/18/24 1259 MR#: [id number] Acct: [id number] Name: YUSRA FUENTES Rep #:[id number] : 1995 29 From: Stephanie burgos MD PCP: KULDIP Marroquin Status:REG SD C Location: [place] [address] History and Physical Date of Admission: 09/19/24 Intake Vital Signs 07/13/2506:13 08/24/2510:31 Height 5 ft 4 in 5 ft 4 in Weight: 252 lb 2 oz BMI 43.2 BP 119/74 Intake Visit Reasons: visit (obstetrics) 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 Is patient in pain?: No Allergies mushroom Allergy (Verified 08/24/24 11:29) Swelling Medications ?Medication ?Instructions ?Recorded ?Confirmed ?Type vits,calcium no.78-iron 1 tab PO DAILY 04/18/15 History fumarate-folic acid 29 mg-1 mg tablet (Prenatabs FA) lactobacillus combination no.4 3 3,000 mmu cells PO QDAY 08/24/24 5 History billion cell capsule (Probiotic) : Yes PFSH Medical History Gestational diabetes History of pulmonary embolism Depression Psoriasis Seasonal allergies 39 weeks gestation of Family History Mother Heart disease HypothyroidismGrandmother , great-grandma Breast cancer Social History (Updated 08/24/24 @ 11:34 by Hilary Boyle) adopted: No household members: spouse and children number of children: 3 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 Date Name GA/Weeks Outcome Route Bth Weight Infant Gen Labor Lgth Anesthesia Del Locatn Provider FOB Unknown Chemical - 2018 04/06/15 [place] 38 live - full term 8lbs 14oz Male 36 epidural [facility] 01/12/19 [place] 39 live - full term 9lbs 4oz Male 8 epidural [facility] 07/13/24 [place] 39 live - full term 8lbs 11oz Female epidural [facility] Itz Delivery Date: 04/06/15 Last Updated by: Sujey Hong RN Gained 60lbs, Induced d/t early pre-e Delivery Date: 01/12/19 Last Updated by: Sujey Hong RN Induction d/t size Delivery Date: 07/13/24 Last Updated by: Sujey Hong RN See problem list for complications, and IOL SM GDM 39 Depression Screen PHQ-2/9 PHQ-2 Over the last 2 weeks, how often have you been bothered by any of the following problems? 1. Little interest or pleasure in doing things: not at all 2. Feeling down, depressed, or hopeless: not at all Total score: 0 Post HPI Routine Follow-Up: Details: YUSRA FUENTES is a 29 year old who presents for her post visit. ROS Const Reports system reviewed and no additional complaints, except as documented GI Reports system reviewed and no additional complaints, except as documented, Denies bloating, Denies constipation, Denies nausea and Denies vomiting Reports system reviewed and no additional complaints, except as documented, Denies abnormal vaginal bleeding, Denies pelvic pain, Denies sexual dysfunction,Denies urinary incontinence, Denies urinary hesitancy, Denies urinary urgency and Denies vaginal discharge Skin/Breast Reports system reviewed and no additional complaints, except as documented and Reports as per HPI Psych Reports as per HPI Exam Const General: cooperative, healthy appearing, comfortable and no acute distress HENMT Head: normal to inspection Neck Neck: normal visual inspection and no lymphadenopathy Thyroid: thyroid normal Chest Breast inspection: normal inspection of the breasts and normal inspection of theaxillae Breast palpation: normal palpation of the breasts and normal palpation of the axillae Resp Effort & Inspection: normal respiratory effort GI Inspection: normal to inspection Palpation: soft, no hepatosplenomegaly and nontender General: bladder normal to palpation External Female Exam: normal external appearance and normal appearance of the urethra Urethra: normal appearance of the urethra Speculum Exam - Vagina: normal appearance of the vagina and normal vaginal discharge Speculum Exam - Cervix: normal appearance of the cervix Bimanual Exam- Vagina & Uterus: normal bimanual exam, uterine size normal, bladder normal to palpation, uterine shape normal and non-tender Bimanual Exam- Adnexa, other: normal adnexae and normal Pelvic Support: normal Skin General: no rashes or lesions noted Coding Level of Care Code No Charge Diagnoses Routine Follow-Up Z39.2 Assessment and Plan Assessment and Plan (1) Routine Follow-Up: Plan Cervical cancer screening: pap up to date Contraceptive plans: plan sterilization Complications: vaginal odor- red top sent Follow up for annual exams or sooner if indicated. After discussing the patient's diagnosis and treatment plan options, patient wishes to proceed with surgical management. I have discussed with the patient the risks, benefits, and alternatives of the procedure which include but are notlimited to risks of anesthesia, bleeding, infection, possible damage to bowel, bladder, or surrounding vasculature which could lead to additional surgery to evaluate any complications. Patient agrees to procedure and wishes to proceed. ACOG/uptodate references given for additional information regarding procedure. 09/18/24 1300 <Electronically signed by Stephanie Mtz MD> Cosigner Signature (if applicable): CC: KULDIP Sam; Dr. Stephanie Mtz MD~ Signed ADDENDUM by Dr. Stephanie Mtz MD on 09/19/24 at 1340 Addendum UPDATE- I have seen the patient and performed any clinically relevant updates to the history and physical exam. Stephanie Mtz MD 09/19/24 1340<Electronically signed by Stephanie Mtz MD> Cosigner Signature (if applicable): cc: HAND STONERJn Sam; Dr. Stephanie Mtz MD ~* Signed [facility] Work Phone: 1(986) 254-125407-01-2025 Consult note [facility] Medical Records Department [address] [place] [address] Anesthesia Postop Eval I 09/19/24 1528 MR#: [id number] Acct: [id number] Name: YUSRA FUENTES Rep #:[id number] : 1995 29 From: Balwinder Yee CRNA PCP: KULDIP Marroquin Status:REG SD C Y Race: N Location: [place] [address] Anesthesia: Postop Eval I Current Vital Signs Temperature: 97 F Pulse Rate: 76 Blood Pressure: 136/73 Respiratory Rate: 16 Pulse Ox: 95 Oxygen Delivery Method: Room Air Assessment Airway patent: Yes Spontaneous unlabored respirations: Yes Mental status: Awake and Calm nausea: No Vomiting: No Anesthesia Complication: No Fluid Hydration Crystalloid volume administer (ml): 900 Total IV fluid infused: 900 Progress Note Anesthesia document: Postop Eval 1 completed: Yes 09/19/24 1529 an FISHER WEIR> Date _ Balwinder Yee FISHER WEIR Cosigner Signature: Date CC: ~ Signed [facility]07-01-2025 Consult note [facility] Medical Records Department [address] [place] [address] Pre-Anesthesia Evaluation 09/19/24 1413 MR#: [id number] Acct: [id number] Name: YUSRA FUENTES Rep #:[id number] : 1995 29 From: Melvin Mcgee MD PCP: Nancy Sam HAND STONER-C Status:REG SD C Y Race: N Location: [place] [address] ASA Classification* ASA Classification ASA Classification: 3 Assessment & Plan Anesthesia* Anesthesia Assessment Anesthesia Assessment: Discussed sedation and/or anesthesia options, risks, benefits, and alternatives with patient/parents/legal guardian/POA. Questions invited. The patient/parents/legal guardian/POA seems to understand and agrees to proceedwith anesthesia plan. Reviewed the physical assessment, medical history, allergy history and patient home medications list prior to surgery/procedure/anesthetic and documented any changes. Performed airway and anesthesia risk assessments. Anesthesia Type Anesthesia Type: General History Source History Obtained from:: Patient and Chart Anesthesia Focused Assessment* Temperature: 98.4 F Pulse Rate: 70 Blood Pressure: 117/69 Respiratory Rate: 16 Pulse Ox: 98 Oxygen Delivery Method: Room Air Airway Assessment Mouth opens: >3 cm Mallampati Score: II Teeth Condition: Intact and Chipped/Broken (bottom front tooth slightly chipped) Labs Anesthesia Preop lab: CBC WBC 7.7 K/mm3 (4.4-11.0) 09/11/24 09:44 09/11/24 RBC 4.73 M/mm3 (4.2-5.4) 09/11/24 09:44 09/11/24 Hgb 13.4 g/dL (12.0-15.0) 09/11/24 09:44 09/11/24 Hct 40.9 % (37-47) 09/11/24 09:44 09/11/24 Plt Count 272 K/mm3 (150-450) 09/11/24 09:44 09/11/24 CHEMISTRY Potassium 4.1 mmol/L (3.5-5.1) 12/30/23 09:46 12/30/23 Sodium 137 mmol/L (136-145) 12/30/23 09:46 12/30/23 BUN 9 mg/dL (7-18) 12/30/23 09:46 12/30/23 Creatinine 0.65 mg/dL (0.55-1.02) 12/30/23 09:46 12/30/23 Glucose 93 mg/dL (74-106) 12/30/23 09:46 12/30/23 POC Glucose 83 mg/dL (74-106) 07/14/24 08:39 07/14/24 TSH 3.240 uIU/mL (0.358-3.740) 12/30/23 09:46 12/20 COAG Urine Test Negative Negative 09/19/24 13:05 09/19/24 Pre-Assessment Diagnosis/Proposed Procedure Planned Operative Procedure(s): LAPAROSCOPIC SALPINGECTOMY CHARLES Anesthesia History 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 When Was Last Pacemaker Check QUESTION #4 FULL TEXT: You/Your Family Experience fever (hyperthermia) with Anesthesia Last Oral Intake Last Oral intake: Last Oral Intake NPO since 09:00 09/19/24 13:20 Meds taken in AM with sips of No 09/19/24 13:20 water? 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 Female Yes 09/05/24 15:18 HX of Motion Sickness No 09/05/24 15:18 HX of N/V After Surgery No 09/05/24 15:18 Non-Smoker Yes 09/05/24 15:18 Duration of Surgery greater Yes 09/05/24 15:18 than 60 minutes Number of Risk Factors 3 09/05/24 15:18 PONV Score Moderate Risk 09/05/24 15:18 Height & Weight Height & Weight: Anesthesia: Height & Weight Height 5 ft 4 in 09/19/24 13:20 Weight: 113 kg 09/19/24 13:20 Body Mass Index (BMI) 42.7 09/19/24 13:20 Respiratory Assessment Respiratory Assessment - roll forming machine set up operator: Respiratory Tract Infection Hx - roll forming machine set up operator Hx Respiratory Tract Infection No 09/05/24 15:18 STOP Sleep Apnea STOP Sleep Apnea - roll forming machine set up operator: STOP Sleep Apnea - roll forming machine set up operator Hx Hypertension No 09/05/24 15:18 Hx Sleep Apnea No 09/05/24 15:18 CPAP BIPAP Do you snore loudly (louder No 09/05/24 15:18 than talking or can be heard Do you often feel tired/ No 09/05/24 15:18 fatigued/ sleepy during daytime? Has anyone observed you stop No 09/05/24 15:18 breathing during sleep? STOP Results Negative 09/05/24 15:18 QUESTION #5 FULL TEXT : Do you snore loudly (louder than talking or can be heard through closeddoors)? 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 Specify any problems Hx of Preganancy in last 3 No 09/05/24 15:18 Months Nurse Filling Out Transfusion [email or web address] 09/05/24 15:18 & Questions: Date: 09/05/24 09/05/24 15:18 Time: 15:21 06/17/25 15:18 Patient unable to answer at this time (ie. confused, unrespo /Reproduction History /Reproductive History - roll forming machine set up operator: /Reproductive Hx- roll forming machine set up operator Hx Now No 09/05/24 15:18 Gestational Age (in weeks): EDC: Hx Hx Para Hx Section SAB Yes 09/05/24 15:18 Active Medications Active Medications: Current Medications Generic Name Dose Route Start Last Admin Trade Name Freq PRN Reason Stop Dose Admin Lactated Ringer's 1,000 mls @ 999 mls/hr 09/19/24 14:30 09/19/24 13:34 IV 09/19/24 15:30 999 mls/hr .Q1H1M DUY Administration Lactated Ringer's 1,000 mls @ 15 mls/hr 09/19/24 13:15 IV .Q48H DUY PFSH Medical History Gestational diabetes History of pulmonary embolism Depression Psoriasis Seasonal allergies 39 weeks gestation of Home Medications ?Medication ?Instructions ?Recorded ?Last Taken ?Type vits,calcium no.78-iron 1 tab PO DAILY pregna ncy 04/18/07/12/24 History fumarate-folic acid 29 mg-1 mg tablet (Prenatabs FA) lactobacillus combination no.4 3 3,000 mmu cells PO QD AY 08/24/24 Unknown History billion cell capsule (Probiotic) Allergy/AdvReac Type Severity Reaction Status Date / Time mushroom Allergy Swelling Verified 09/05/24 15:16 adhesive tape AdvReac RASH Verified 09/05/24 15:24 Family History Mother Heart disease Hypothyroidism Grandmother , great-grandma Breast cancer Social History (Updated 08/24/24 @ 11:34 by Hilary Boyle) adopted: No household members: spouse and children number of children: 3 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 Physical Exam Const alert and oriented x3 Neck full ROM Resp normal respiratory effort, normal air movement and clear to auscultation bilaterally Cardio regular rate and regular rhythm Extremity full ROM 09/19/24 1415 D> Date _ Melvin Mcgee MD Cosigner Signature: Date CC: ~ Signed [facility]07-01-2025 History and physical note [facility] Medical Records Department [address] [place] [address] History & Physical Exam 09/18/24 1259 MR#: [id number] Acct: [id number] Name: YUSRA FUENTES Rep #:[id number] : 1995 29 From: Stephanie burgos MD PCP: KULDIP Marroquin Status:REG SD C Location: [place] [address] History and Physical Date of Admission: 09/19/24 Intake Vital Signs 07/13/2506:13 08/24/2510:31 Height 5 ft 4 in 5 ft 4 in Weight: 252 lb 2 oz BMI 43.2 BP 119/74 Intake Visit Reasons: visit (obstetrics) 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 Is patient in pain?: No Allergies mushroom Allergy (Verified 08/24/24 11:29) Swelling Medications ?Medication ?Instructions ?Recorded ?Confirmed ?Type vits,calcium no.78-iron 1 tab PO DAILY 04/18/15 History fumarate-folic acid 29 mg-1 mg tablet (Prenatabs FA) lactobacillus combination no.4 3 3,000 mmu cells PO QDAY 08/24/24 5 History billion cell capsule (Probiotic) : Yes PFSH Medical History Gestational diabetes History of pulmonary embolism Depression Psoriasis Seasonal allergies 39 weeks gestation of Family History Mother Heart disease HypothyroidismGrandmother , great-grandma Breast cancer Social History (Updated 08/24/24 @ 11:34 by Hilary Boyle) adopted: No household members: spouse and children number of children: 3 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 Date Name GA/Weeks Outcome Route Bth Weight Gen Labor Lgth Anesthesia Del Locatn Provider FOB Unknown Chemical - 2018 04/06/15 [place] 38 live - full term 8lbs 14oz Male 36 epidural [facility] 01/12/19 [place] 39 live - full term 9lbs 4oz Male 8 epidural [facility] Ladi Mobley 07/13/24 [place] 39 live - full term 8lbs 11oz Female epidural [facility] SM Itz Delivery Date: 04/06/15 Last Updated by: Sujey Hong RN Gained 60lbs, Induced d/t early pre-e Delivery Date: 01/12/19 Last Updated by: Sujey Hong RN Induction d/t size Delivery Date: 07/13/24 Last Updated by: Sujey Hong RN See problem list for complications, and IOL SM GDM 39 Depression Screen PHQ-2/9 PHQ-2 Over the last 2 weeks, how often have you been bothered by any of the following problems? 1. Little interest or pleasure in doing things: not at all 2. Feeling down, depressed, or hopeless: not at all Total score: 0 Post HPI Routine Follow-Up: Details: YUSRA FUENTES is a 29 year old who presents for her post visit. ROS Const Reports system reviewed and no additional complaints, except as documented GI Reports system reviewed and no additional complaints, except as documented, Denies bloating, Deniesconstipation, Denies nausea and Denies vomiting Reports system reviewed and no additional complaints, except as documented, Denies abnormal vaginalbleeding, Denies pelvic pain, Denies sexual dysfunction,Denies urinary incontinence, Denies urinaryhesitancy, Denies urinary urgency and Denies vaginal discharge Skin/Breast Reports system reviewed and no additional complaints, except as documented and Reports as per HPI Psych Reports as per HPI Exam Const General: cooperative, healthy appearing, comfortable and no acute distress HENSD Head: normal to inspection Neck Neck: normal visual inspection and no lymphadenopathy Thyroid: thyroid normal Chest Breast inspection: normal inspection of the breasts and normal inspection of theaxillae Breast palpation: normal palpation of the breasts and normal palpation of the axillae Resp Effort & Inspection: normal respiratory effort GI Inspection: normal to inspection Palpation: soft, no hepatosplenomegaly and nontender General: bladder normal to palpation External Female Exam: normal external appearance and normal appearance of the urethra Urethra: normal appearance of the urethra Speculum Exam - Vagina: normal appearance of the vagina and normal vaginal discharge Speculum Exam - Cervix: normal appearance of the cervix Bimanual Exam- Vagina & Uterus: normal bimanual exam, uterine size normal, bladder normal to palpation, uterine shape normal and non-tender Bimanual Exam- Adnexa, other: normal adnexae and normal Pelvic Support: normal Skin General: no rashes or lesions noted Coding Level of Care Code No Charge Diagnoses Routine Follow-Up Z39.2 Assessment and Plan Assessment and Plan (1) Routine Follow-Up: Plan Cervical cancer screening: pap up to date Contraceptive plans: plan sterilization Complications: vaginal odor- red top sent Follow up for annual exams or sooner if indicated. After discussing the patient's diagnosis and treatment plan options, patient wishes to proceed withsurgical management. I have discussed with the patient the risks, benefits, and alternatives of theprocedure which include but are notlimited to risks of anesthesia, bleeding, infection, possible damage to bowel, bladder, or surrounding vasculature which could lead to additional surgery to evaluate any complications. Patient agrees to procedure and wishes to proceed. ACOG/uptodate references given for additional information regarding procedure. 09/18/24 1300 Cosigner Signature (if applicable): CC: KULDIP Sam; Dr. Stephanie Mtz MD~ Signed ADDENDUM by Dr. Stephanie Mtz MD on 09/19/24 at 1340 Addendum UPDATE- I have seen the patient and performed any clinically relevant updates to the history and physical exam. Stephanie Mtz MD 09/19/24 1340 Cosigner Signature (if applicable): cc: KULDIP Sam; Dr. Stephanie Mtz MD ~* Signed [facility]06-30-2025 [facility] Medical Records Department [address] [place] [address] History Physical Exam 09/18/24 1259 MR#: [id number] Acct: [id number] Name: YUSRA FUENTES Rep #: [id number] : 1995 29 From: Stephanie Mtz MD PCP: KULDIP Marroquin [place] [facility] [place] [facility] History and Physical Date of Admission: 09/19/24 Intake Vital Signs 07/13/2506:13 08/24/2510:31 Height 5 ft 4 in 5 ft 4 in Weight: 252 lb 2 oz BMI 43.2 BP 119/74 Intake Visit Reasons: visit (obstetrics) 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 Is patient in pain?: No Allergies mushroom Allergy (Verified 08/24/24 11:29) Swelling Medications ???Medication ???Instructions ???Recorded ???Confirmed ???Type vits,calcium no.78-iron 1 tab PO DAILY 04/18/15 08/24/24 History fumarate-folic acid 29 mg-1 mg tablet (Prenatabs FA) lactobacillus combination no.4 3 3,000 mmu cells PO QDAY 08/24/24 08/24/24 History billion cell capsule (Probiotic) : Yes PFSH Medical History Gestational diabetes History of pulmonary embolism Depression Psoriasis Seasonal allergies 39 weeks gestation of Family History Mother Heart disease HypothyroidismGrandmother , great-grandma Breast cancer Social History (Updated 08/24/24 @ 11:34 by Hilary Boyle) adopted: No household members: spouse and children number of children: 3 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 Date Name GA/Weeks Outcome Route Bth Weight Infant Gen Labor Lgth Anesthesia Del Locatn Provider FOB Unknown Chemical - 2018 04/06/15 [place] 38 live - full term 8lbs 14oz Male 36 epidur al [facility] Itz 01/12/19 [place] 39 live - full term 9lbs 4oz Male 8 epidura l [facility] Itz 07/13/24 [place] 39 live - full term 8lbs 11oz Female e pidural [facility] SM Itz Delivery Date: 04/06/15 Last Updated by: Sujey Hong RN Gained 60lbs, Induced d/t early pre-e Delivery Date: 01/12/19 Last Updated by: Sujey Hong RN Induction d/t size Delivery Date: 07/13/24 Last Updated by: Sujey Hong RN See problem list for complications, and IOL SM GDM 39 Depression Screen PHQ-2/9 PHQ-2 Over the last 2 weeks, how often have you been bothered by any of the following problems? 1. Little interest or pleasure in doing things: not at all 2. Feeling down, depressed, or hopeless: not at all Total score: 0 Post HPI Routine Follow-Up: Details: YUSRA FUENTES is a 29 year old who presents for her post visit. ROS Const Reports system reviewed and no additional complaints, except as documented GI Reports system reviewed and no additional complaints, except as documented, Denies bloating, Denies constipation, Denies nausea and Denies vomiting Reports system reviewed and no additional complaints, except as documented, Denies abnormal vaginal bleeding, Denies pelvic pain, Denies sexual dysfunction, Denies urinary incontinence, Denies urinary hesitancy, Denies urinary urgency and Denies vaginal discharge Skin/Breast Reports system reviewed and no additional complaints, except as documented and Reports as per HPI Psych Reports as per HPI Exam Const General: cooperative, healthy appearing, comfortable and no acute distress HENMT Head: normal to inspection Neck Neck: normal visual inspection and no lymphadenopathy Thyroid: thyroid normal Chest Breast inspection: normal inspection of the breasts and normal inspection of the axillae Breast palpation: normal palpation of the breasts and normal palpation of the (more content not included)...[facility]06-05-2025 Progress note [facility] [address], [address] [place] [address] OFFICE VISIT Date of Service: 08/24/24 MR#: [id number] Acct: [id number] Name: YUSRA FUENTES Rep #: [id number] : 1995 Provider: Dr. 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 Is patient in pain?: No Allergies mushroom Allergy (Verified 08/24/24 11:29) Swelling Medications ?Medication ?Instructions ?Recorded ?Confirmed ?Type vits,calcium no.78-iron 1 tab PO DAILY pregna ncy 04/18/15 08/24/24 History fumarate-folic acid 29 mg-1 mg tablet (Prenatabs FA) lactobacillus combination no.4 3 3,000 mmu cells PO QD AY 08/24/24 08/24/24 History billion cell capsule (Probiotic) : [facility] History Gestational diabetes History of pulmonary embolism Depression Psoriasis Seasonal allergies 39 weeks gestation of Family History Mother Heart disease Hypothyroidism Grandmother , great-grandma Breast cancer Social History (Updated 08/24/24 @ 11:34 by Hilary Boyle) adopted: No household members: spouse and children number of children: 3 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 Date Name GA/Weeks Outcome Route Bth Weight Infant Gen Labor Lgth Anesthesia Del Locatn Provider FOB Unknown Chemical - 2018 04/06/15 Bra[place] 38 live - full term 8lbs 14oz Male 36 epidural [facility] 01/12/19 [place] 39 live - full term 9lbs 4oz Male 8 ep idural [facility] 07/13/24 [place] 39 live - full term 8lbs 11oz Female epidural [facility] Itz Delivery Date: 04/06/15 Last Updated by: Sujey Hong RN Gained 60lbs, Induced d/t early pre-e Delivery Date: 01/12/19 Last Updated by: Sujey Hong RN Induction d/t size Delivery Date: 07/13/24 Last Updated by: Sujey Hong RN See problem list for complications, and IOL SM GDM 39 Depression Screen PHQ-2/9 PHQ-2 Over the last 2 weeks, how often have you been bothered by any of the following problems? 1. Little interest or pleasure in doing things: not at all 2. Feeling down, depressed, or hopeless: not at all Total score: 0 Post HPI Routine Follow-Up: Details: YUSRA FUENTES is a 29 year old who presents for her post visit. ROS Const Reports system reviewed and no additional complaints, except as documented GI Reports system reviewed and no additional complaints, except as documented, Denies bloating, Deniesconstipation, Denies nausea and Denies vomiting Reports system reviewed and no additional complaints, except as documented, Denies abnormal vaginalbleeding, Denies pelvic pain, Denies sexual dysfunction,Denies urinary incontinence, Denies urinaryhesitancy, Denies urinary urgency and Denies vaginal discharge Skin/Breast Reports system reviewed and no additional complaints, except as documented and Reports as per HPI Psych Reports as per HPI Exam Const General: cooperative, healthy appearing, comfortable and no acute distress HENMT Head: normal to inspection Neck Neck: normal visual inspection and no lymphadenopathy Thyroid: thyroid normal Chest Breast inspection: normal inspection of the breasts and normal inspection of theaxillae Breast palpation: normal palpation of the breasts and normal palpation of the axillae Resp Effort & Inspection: normal respiratory effort GI Inspection: normal to inspection Palpation: soft, no hepatosplenomegaly and nontender General: bladder normal to palpation External Female Exam: normal external appearance and normal appearance of the urethra Urethra: normal appearance of the urethra Speculum Exam - Vagina: normal appearance of the vagina and normal vaginal discharge Speculum Exam - Cervix: normal appearance of the cervix Bimanual Exam- Vagina & Uterus: normal bimanual exam, uterine size normal, bladder normal to palpation, uterine shape normal and non-tender Bimanual Exam- Adnexa, other: normal adnexae and normal Pelvic Support: normal Skin General: no rashes or lesions noted Coding Level of Care Code No Charge Diagnoses Routine Follow-Up Z39.2 Assessment and Plan Assessment and Plan (1) Routine Follow-Up: Plan Cervical cancer screening: pap up to date Contraceptive plans: plan sterilization Complications: vaginal odor- red top sent Follow up for annual exams or sooner if indicated. 08/24/24 1153 gabe ROSENBERG> Date _ Stephanie Lymanign Signature: Date (if applicable) CC: ~ [facility]04-25-2025 Progress note Author Delisa Molina [facility] Note Date/Time July 14, 2024 8:2 0am [facility] Medical Records Department [address] [place] [address] Progress Note - OBGYN 07/14/24 0819 MR#: [id number] Acct: [id number] Name: YUSRA FUENTES Rep #:[id number] : 1995 29 From: Delisa Molina CNM PCP: Nancy Sam HAND STONER-C Status:ADM IN Location: [place] [address] Subjective Subjective Patient doing well without complaints. [...] 70.6 H, Lymph % (Auto) 17.6 L, [place] % (Auto) 9.7, Eos % (Auto) 1.3, [...] 72.0 H, Lymph % (Auto) 17.8 L, [place] % (Auto) 8.4, Eos % (Auto) 1.1, [...] Cosigner Signature (if applicable): CC: ~ Signed [facility] Work Phone: 1(157) 469-205904-25-2025 Progress note [facility] Medical Records Department [address] [place] [address] Progress Note - OBGYN 07/14/24 0819 MR#: [id number] Acct: [id number] Name: YUSRA FUENTES Rep #:[id number] : 1995 29 From: Delisa Molina CNM PCP: Nancy Sam, HAND STONER-C Status:ADM IN Location: [address] Subjective Subjective Patient doing well without complaints. [...] 70.6 H, Lymph % (Auto) 17.6 L, [place] % (Auto) 9.7, Eos % (Auto) 1.3, [...] 72.0 H, Lymph % (Auto) 17.8 L, [place] % (Auto) 8.4, Eos % (Auto) 1.1, [...] Cosigner Signature (if applicable): CC: ~ Signed [facility]04-24-2025 Discharge summary Author Stephanie Mtz [facility] Note Date/Time July 13, 2024 9:3 4pm [facility] Medical Records Department [address] [place] [address] Instructions for Home/Discharge Instructions 07/13/242126 MR#: [id number] Acct: [id number] Name: YUSRA FUENTES Rep #:[id number] : 1995 29 From: Stephanie burgos MD PCP: BE MarroquinC Status:ADM IN Discharge Instructions Diet Discharge Diet: [...] Up With: Stephanie Mtz MD When: Call [phone] to make an appointment with your doctor [...] by Stephanie Mtz MD>Stephanie Mtz MD CC: KULDIP Sam ~ Signed [facility] Work Phone: 1(828) 866-946304-24-2025 Discharge summary [facility] Medical Records Department [address] [place] [address] Instructions for Home/Discharge Instructions 07/13/242126 MR#: [id number] Acct: [id number] Name: YUSRA FUENTES Rep #:[id number] : [...] Up With: Stephanie Mtz MD When: Call [phone] to make an appointment with your doctor [...] Order can be placed): Home, Self Care 07/13/242133Stephanie Mtz MD CC: KULDIP Sam ~ Signed [facility]04-24-2025 Procedure note [facility] Medical Records Department [address] [facility] [place] [address] OB Vaginal Delivery 07/13/242124 MR#: [id number] Acct: [id number] Name: YUSRA FUENTES Rep #:[id number] : 1995 29 From: Stephanie burgos MD PCP: KULDIP Marroquin Status:ADM IN Location: [id number] Assessment & Plan (1) Encounter for induction [...] complication followed by the rest of the infant and the infant was placed on the [...] collected: Yes Description of specimen(s) removed: placenta Lead 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 07/13/24 0821 MR#: [id number] Acct: [id number] Name: YUSRA FUENTES Rep #:[id number] : 1995 29 From: Stephanie burgos MD PCP: KULDIP Marroquin Status:ADM IN [facility] HPI - General General Date of Admission: [...] children number of children: 2 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 Date Name GA/Weeks Outcome Route Bth Weight Infant Gen Labor Lgth Anesthesia Del Locatn Provider FOB Unknown Chemical - 2018 04/06/15 [place] 38 live - full term 8lbs 14oz Male 36 [facility] 01/12/19 [place] 39 live - full term 9lbs 4oz Male 8 ep [facility] Delivery Date: 04/06/15 Last Updated by: [...] COMMENT: PRR, , AUGUST 07/20/24, PC: [employer], : Itz (8) : QUALIFIERS: Weeks of [...] complications: monitor BS I have reviewed the [facility] and made any clinically relevant updates. 07/13/24 1257 <Electronically signed by Stephanie Mtz MD> Cosigner Signature (if applicable): CC: BEC Nancy Sam; Dr. 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 Date Name GA/Weeks Outcome Route Bth Weight Gen Labor Lgth Anesthesia Del Locatn Provider FOB Unknown Chemical - 2018 04/06/15 Braxten 38 live - full term 8lbs 14oz Male 36 epidural [facility] 01/12/19 [place] 39 live - full term 9lbs 4oz [facility] Delivery Date: 04/06/15 Last Updated by: [...] oz) 139/84 Negative -?-?-?-?-?-?-?-?-?-?-?-?- Negative 152 -?-?-?-?-?-?-?-?-?-?-?-?- -NO VB. ?flutt ers. Nausea persists but vomiting [...] complications: monitor BS I have reviewed the [facility] and made any clinically relevant updates. 07/13/24 1257 Cosigner Signature (if applicable): CC: KULDIP Sam; Dr. Stephanie Mtz MD~ Signed [facility]04-15-2025 Radiology Diagnostic study note [facility] Imaging Services [address] [place], [place] [address] Biophysical Prof W/O Non Stres MR#: [id number] Acct: [id number] Name: YUSRA FUENTES Rep #: [id number] : 1995 F 29 From: Josh Moon MD PCP: KULDIP Marroquin Status: REG CL I Study:Biophysical Prof W/O Non Stres Date of Exam: 07/03/24 Exam# [id number] Ordering Dr: Stephanie Mahajan MD PROCEDURE: BIOPHYSICAL [...] profile score 8/8, normal values. Reading [facility] CC: KULDIP Sam; Dr. Stephanie Mtz MD ~ Hl7 Developer: Signed [facility]04-09-2025 Radiology Diagnostic study note [facility] Imaging Services [address] [place], [place] [address] Biophysical Prof W/O Non Stres MR#: [id number] Acct: [id number] Name: YUSRA FUENTES Rep #: [id number] : 1995 F 29 From: Chasity Agustin MD PCP: KULDIP Marroquin Status: REG CL I Study:Biophysical Prof W/O Non Stres Date of Exam: 06/27/24 Exam# [id number] Ordering Dr: Stephanie Mahajan MD PROCEDURE: BIOPHYSICAL [...] 4. Additional description as above. Reading Location: [facility] CC: HAND STONER-C Nancy Sam; Dr. Stephanie Mtz MD ~ Hl7 Developer: Signed [facility]03-31-2025 Progress note [facility] Medical Records Department [address] [place] [address] OB Triage Progress Note 06/19/24 1437 MR#: [id number] Acct: [id number] Name: YUSRA FUENTES Rep #:[id number] : 1995 29 From: Lara Cespedes CNM PCP: KULDIP Marroquin Status:REG CL I Y DOS: Location: [place] [address] Progress Notes Date of Service: 06/19/24 Progress Note: Patient presents for triage evaluation secondary to NST after BPP 8 FHT: 135 Moderate variability reactive no decelerations category I tracing [place]: mild-moderate Contractions Assessment and plan: cervical exam done and 1/thick/posterior per nursing, encourage oral hydration, Reactive NST, reassuring maternal and status patient discharged to home to follow-up in office or return to if contractions worsen. See problem list details for additional plan information. Charges/Coding Multi Select Codes Urinary/Genital Urinary/Genital CPT Codes: 20263-17 non-stress test Interp Assessment & Plan (1) [...] Signature (if applicable): Date CC: ARTEM Cespedes; KULDIP Sam ~ Signed [facility]03-31-2025 Radiology Diagnostic study note [facility] Imaging Services [address] [place], [place] [address] Biophysical Prof W/O Non Stres MR#: [id number] Acct: [id number] Name: YUSRA FUENTES Rep #: [id number] : 1995 F 29 From: Humberto Sherman MD PCP: KULDIP Marroquin Status: REG CL I Study:Biophysical Prof W/O Non Stres Date of Exam: 06/19/24 Exam# [id number] Ordering Dr: Stephanie Mahajan MD PROCEDURE: BIOPHYSICAL [...] IMPRESSION: Biophysical profile score: 6/8. Reading Location: [facility] CC: KULDIP Sam; Dr. Stephanie Mtz MD ~ Hl7 Developer: Signed [facility]03-26-2025 Radiology Diagnostic study note [facility] Imaging Services [address] [place], [place] [address] Biophysical Prof W/O Non Stres MR#: [id number] Acct: [id number] Name: YUSRA FUENTES Rep #: [id number] : 1995 F 29 From: Renaldo Gallo MD PCP: BE MarroquinC Status: REG CL I Study:Biophysical Prof W/O Non Stres Date of Exam: 06/12/24 Exam# [id number] Ordering Dr: Stephanie Mahajan MD EXAM: Biophysical [...] of a total of 8. Reading Location: [facility] CC: HAND STONER-C Nancy Sam; Dr. 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, antepartum acute May 3:03pm High cholesterol acute May 292024 3:03pm Ovarian cyst acute May 29, 2024 3:03pm Request for sterilization acute May 29, 2024 3:03pm Seasonal allergies acute May 29, 2024 3:03pm Abnormal glucose level inactive [facility] 2024 3:03pm Obesity affecting inactive May 29, 2024 3:03pm inactive May 29 3:03pm Supervision of high-risk inactive May 29, 2024 3:03pm Anxiety and depression acute [facility] 2024 9:07am Former smoker acute June 12, 2024 9:07am Gestational diabetes acute [facility] 2024 9:07am H/O pre-eclampsia in prior , currently acute [facility] 2024 9:07am 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, antepartum acute May 9:07am High cholesterol acute June 122024 9:07am Ovarian cyst acute June 12, 2024 9:07am Request for sterilization acute June 12, 2024 9:07am Seasonal allergies acute June 12, 2024 9:07am Abnormal glucose level inactive [facility] 2024 9:07am Obesity affecting inactive June 12, 2024 9:07am inactive June 12 9:07am Supervision of high-risk inactive June 12, 2024 9:07am Anxiety and depression acute [facility] 2024 12:15pm Former smoker acute June 19, 2024 12:15pm Gestational diabetes acute [facility] 2024 12:15pm H/O pre-eclampsia in prior , currently acute [facility] 2024 12:15pm 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, antepartum acute May 12:15pm High cholesterol acute June 192024 12:15pm Ovarian cyst acute June 19, 2024 12:15pm Request for sterilization acute June 19, 2024 12:15pm Seasonal allergies acute June 19, 2024 12:15pm Abnormal glucose level inactive [facility] 2024 12:15pm NST (non-stress test) reactive inact april June 19, 2024 12:15pm Obesity affecting inactive June 19, 2024 12:15pm inactive June 19 12:15pm Supervision of high-risk inactive June 19, 2024 12:15pm Anxiety and depression acute [facility] 2024 9:29am Former smoker acute June 23, 2024 9:29am Gestational diabetes acute [facility] 2024 9:29am H/O pre-eclampsia in prior , currently acute [facility] 2024 9:29am 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, antepartum acute June 23, 2024 9:29am High cholesterol acute June 9:29am Ovarian cyst acute June 23, 2 025 9:29am Request for sterilization acute June 23, 2024 9:29am Seasonal allergies acute June 23, 2024 9:29am Breech presentation resolved June 23, 2024 9:29am Abnormal glucose level inactive Ap ril 2024 9:29am NST (non-stress test) reactive inact april June 23, 2024 9:29am Obesity affecting inactive June 23, 2024 9:29am inactive June 23 9:29am Supervision of high-risk inactive June 23, 2024 9:29am Anxiety and depression acute [facility] 2024 9:44am Former smoker acute June 30, 2024 9:44am Gestational diabetes acute [facility] 2024 9:44am H/O pre-eclampsia in prior , currently acute [facility] r[facility] 2024 9:44am 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, antepartum acute June 9:44am High cholesterol acute June 302024 9:44am Ovarian cyst acute June 30, 2024 9:44am Request for sterilization acute June 30, 2024 9:44am Seasonal allergies acute June 30, 2024 9:44am Breech presentation resolved June 30, 2024 9:44am Abnormal glucose level inactive Ap ril 2024 9:44am NST (non-stress test) reactive inact april June 30, 2024 9:44am Obesity affecting inactive June 30, 2024 9:44am inactive June 30 9:44am Supervision of high-risk inactive June 30, 2024 9:44am Anxiety and depression acute Ap r[facility] 2024 12:50pm Former smoker acute July 07, 2024 12:50pm Gestational diabetes acute [facility] 2024 12:50pm H/O pre-eclampsia in prior , currently acute Ap ril 2024 12:50pm 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, antepartum acute June 12:50pm High cholesterol acute July 072024 12:50pm Ovarian cyst acute July 07, 2024 12:50pm Request for sterilization acute July 07, 2024 12:50pm Seasonal allergies acute July 07, 2024 12:50pm Abnormal glucose level inactive Ap ril 2024 12:50pm NST (non-stress test) reactive inact april July 07, 2024 12:50pm Obesity affecting inactive July 07, 2024 12:50pm inactive July 07 12:50pm Supervision of high-risk inactive July 07, 2024 12:50pm Anxiety and depression acute Ap r[facility] 2024 7:11am Former smoker acute July 13, 2024 7:11am Gestational diabetes acute [facility] 2024 7:11am H/O pre-eclampsia in prior , currently acute Ap ril 2024 7:11am 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, antepartum acute June 7:11am High cholesterol acute July 132024 7:11am Ovarian cyst acute July 13, 2024 7:11am Request for sterilization acute July 13, 2024 7:11am Seasonal allergies acute July 13, 2024 7:11am Vaginal delivery acute July 132024 7:11am Abnormal glucose level inactive Ap ril 2024 7:11am Obesity affecting inactive July 13, 2024 7:11am inactive July 13 7:11am Supervision of high-risk inactive July 13, 2024 7:11am Encounter for induction of labor deleted July 13, 2024 7:11am Routine Follow-Up noneact april August 24, 2024 11:26am Sterilization acute September 19, 2 025 12:57pm [facility] Work Phone: 1(571) 226-519303-04-2025 Radiology Diagnostic study note [facility] Imaging Services [address] [place], [place] [address] OB Limited With Biometrics MR#: [id number] Acct: [id number] Name: YUSRA FUENTES Rep #: [id number] : 1995 F 29 From: Humberto Sherman MD PCP: KULDIP Marroquin Status: REG CL I Study:OB Limited With Biometrics Date of Exam : 05/23/24 Exam# [id number] Ordering Dr: Stephanie Mahajan MD PROCEDURE: OB [...] of 31 weeks and 4days. Reading Location: [id number] CC: KULDIP Sam; Dr. Stephanie Mtz MD ~ Hl7 Developer: Signed [facility]02-24-2025 Evaluation note* Diagnosis Onset Date Resolution Status Admit Date Anxiety and depression acute Fe bruary 2024 12:50pm Former smoker acute May 152024 12:50pm Gestational diabetes acute [facility] 2024 12:50pm H/O pre-eclampsia in prior , currently acute Fe bruary 2024 12:50pm 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, antepartum acute April 232024 12:50pm High cholesterol acute May 15, 2024 12:50pm Ovarian cyst acute April 12:50pm Request for sterilization acute May 15, 2024 12:50pm Seasonal allergies acute Febr2024 12:50pm Abnormal glucose level inactive Fe bruary 2024 12:50pm Obesity affecting inactive May 15, 2024 12:50pm inactive May 15, 2024 12:50pm Supervision of high-risk inactive May 15, 12:50pm Anxiety and depression acute [facility] 2024 3:03pm Former smoker acute May 29, 2024 3:03pm Gestational diabetes acute [facility] 2024 3:03pm H/O pre-eclampsia in prior , currently acute [facility] 2024 3:03pm 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, antepartum acute May 3:03pm High cholesterol acute May 292024 3:03pm Ovarian cyst acute May 29, 2024 3:03pm Request for sterilization acute May 29, 2024 3:03pm Seasonal allergies acute May 29, 2024 3:03pm Abnormal glucose level inactive [facility] 2024 3:03pm Obesity affecting inactive May 29, 2024 3:03pm inactive May 29 3:03pm Supervision of high-risk inactive May 29, 2024 3:03pm Anxiety and depression acute [facility] 2024 9:07am Former smoker acute June 12, 2024 9:07am Gestational diabetes acute [facility] 2024 9:07am H/O pre-eclampsia in prior , currently acute [facility] 2024 9:07am 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, antepartum acute May 9:07am High cholesterol acute June 122024 9:07am Ovarian cyst acute June 12, 2024 9:07am Request for sterilization acute June 12, 2024 9:07am Seasonal allergies acute June 12, 2024 9:07am Abnormal glucose level inactive [facility] 2024 9:07am Obesity affecting inactive June 12, 2024 9:07am inactive June 12 9:07am Supervision of high-risk inactive June 12, 2024 9:07am Anxiety and depression acute [facility] 2024 12:15pm Former smoker acute June 19, 2024 12:15pm Gestational diabetes acute [facility] 2024 12:15pm H/O pre-eclampsia in prior , currently acute [facility] 2024 12:15pm 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, antepartum acute May 12:15pm High cholesterol acute June 192024 12:15pm Ovarian cyst acute June 19, 2024 12:15pm Request for sterilization acute June 19, 2024 12:15pm Seasonal allergies acute June 19, 2024 12:15pm Abnormal glucose level inactive [facility] 2024 12:15pm NST (non-stress test) reactive inactive June 19, 2024 12:15pm Obesity affecting inactive June 19, 2024 12:15pm inactive June 19 12:15pm Supervision of high-risk inactive June 19, 2024 12:15pm Anxiety and depression acute Ap r[facility] 2024 9:29am Former smoker acute June 23, 2024 9:29am Gestational diabetes acute [facility] 2024 9:29am H/O pre-eclampsia in prior , currently acute Ap ril 2024 9:29am 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, antepartum acute June 23, 2024 9:29am High cholesterol acute June 9:29am Ovarian cyst acute June 23, 2 025 9:29am Request for sterilization acute June 23, 2024 9:29am Seasonal allergies acute June 23, 2024 9:29am Breech presentation resolved June 23, 2024 9:29am Abnormal glucose level inactive Ap ril 2024 9:29am NST (non-stress test) reactive inactive June 23, 2024 9:29am Obesity affecting inactive June 23, 2024 9:29am inactive June 23 9:29am Supervision of high-risk inactive June 23, 2024 9:29am Anxiety and depression acute Ap r[facility] 2024 9:44am Former smoker acute June 30, 2024 9:44am Gestational diabetes acute [facility] 2024 9:44am H/O pre-eclampsia in prior , currently acute Ap r[facility] 2024 9:44am 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, antepartum acute June 9:44am High cholesterol acute June 302024 9:44am Ovarian cyst acute June 30, 2024 9:44am Request for sterilization acute June 30, 2024 9:44am Seasonal allergies acute June 30, 2024 9:44am Breech presentation resolved June 30, 2024 9:44am Abnormal glucose level inactive Ap ril 2024 9:44am NST (non-stress test) reactive inactive June 30, 2024 9:44am Obesity affecting inactive June 30, 2024 9:44am inactive June 30 9:44am Supervision of high-risk inactive June 30, 2024 9:44am Anxiety and depression acute Ap ril 2024 12:50pm Former smoker acute July 07, 2024 12:50pm Gestational diabetes acute [facility] 2024 12:50pm H/O pre-eclampsia in prior , currently acute Ap r[facility] 2024 12:50pm 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, antepartum acute June 12:50pm High cholesterol acute July 072024 12:50pm Ovarian cyst acute July 07, 2024 12:50pm Request for sterilization acute July 07, 2024 12:50pm Seasonal allergies acute July 07, 2024 12:50pm Abnormal glucose level inactive Ap ril 2024 12:50pm NST (non-stress test) reactive inactive July 07, 2024 12:50pm Obesity affecting inactive July 07, 2024 12:50pm inactive July 07 12:50pm Supervision of high-risk inactive July 07, 2024 12:50pm Anxiety and depression acute Ap ril 2024 7:11am Former smoker acute July 13, 2024 7:11am Gestational diabetes acute [facility] 2024 7:11am H/O pre-eclampsia in prior , currently acute Ap ril 2024 7:11am 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, antepartum acute June 7:11am High cholesterol acute July 132024 7:11am Ovarian cyst acute July 13, 2024 7:11am Request for sterilization acute July 13, 2024 7:11am Seasonal allergies acute July 13, 2024 7:11am Vaginal delivery acute July 132024 7:11am Abnormal glucose level inactive Ap 2024 7:11am Obesity affecting inactive July 13, 2024 7:11am inactive July 13 7:11am Supervision of high-risk inactive July 13, 2024 7:11am Encounter for induction of labor deleted July 13, 2024 7:11am Routine Follow-Up noneact april August 24, 2024 11:26am [place] [email or web address] [facility] Work Phone: 1(858) 691-964012-30-2024 Evaluation note* Diagnosis Onset Date Resolution Status Admit Date Anxiety and depression acute 2023 8:48am Former smoker acute March 202023 8:48am H/O pre-eclampsia in prior , currently 2023 8:48am 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, antepartum acute February 212023 8:48am High cholesterol acute March 20, 2024 8:48am Obesity affecting acute March 20, 2024 8:48am Ovarian cyst acute February 8:48am acute March 20, 2024 8:48am Request for sterilization acute March 20, 2024 8:48am Seasonal allergies acute [facility] 2023 8:48am Supervision of high-risk acute March 20, 024 8:48am Hypothyroidism resolved February 212023 8:48am Anxiety and depression acute [facility] 2024 8:23am Former smoker acute March 8:23am H/O pre-eclampsia in prior , currently acute [facility] 2024 8:23am Heterozygous factor V Leiden affecting [...] April 17 8:23am [facility] Former smoker acute May 152024 12:50pm Gestational diabetes acute [facility]2024 12:50pm H/O pre-eclampsia in prior , currently acute Fe [facility] 2024 12:50pm Heterozygous factor V Leiden affecting [...] May 15 12:50pm Abnormal glucose level acute [facility] 2024 3:03pm Anxiety and depression acute [facility] 2024 3:03pm Former smoker acute May 29, 2024 3:03pm Gestational diabetes acute [facility] 2024 3:03pm H/O pre-eclampsia in prior , currently acute [facility] 2024 3:03pm Heterozygous factor V Leiden [...] 29, 2024 3:03pm Abnormal glucose level acute [facility] 2024 9:07am Anxiety and depression acute [facility] 2024 9:07am Former smoker acute June 12, 2024 9:07am Gestational diabetes acute [facility] 2024 9:07am H/O pre-eclampsia in prior , currently acute [facility] 2024 9:07am Heterozygous factor V Leiden [...] 12, 2024 9:07am Abnormal glucose level acute [facility] 2024 12:15pm Anxiety and depression acute [facility] 2024 12:15pm Former smoker acute June 19, 2024 12:15pm Gestational diabetes acute [facility] 2024 12:15pm H/O pre-eclampsia in prior , currently acute [facility] 2024 12:15pm Heterozygous factor V Leiden [...] of high-risk acute June 23, 2024 9:29am [facility] Work Phone: 1(423) 976-329012-30-2024 Evaluation note* Diagnosis Onset Date Resolution Status [...] March 20, 2024 8:48am Seasonal allergies acute [facility] 2023 8:48am Supervision of high-risk acute March 20, 8:48am Hypothyroidism resolved February 212023 8:48am Anxiety and depression acute [facility] 2024 8:23am Former smoker acute March 8:23am H/O pre-eclampsia in prior , currently acute [facility] 2024 8:23am 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, antepartum acute April 172024 8:23am High cholesterol acute April 17, 2024 8:23am Obesity affecting acute April 17, 2024 8:23am Ovarian cyst acute March 8:23am acute April 17, 2024 8:23am Request for sterilization acute April 17, 2024 8:23am Seasonal allergies acute 2024 8:23am Supervision of high-risk acute April 17 8:23am Abnormal glucose level acute bruary 2024 12:50pm Anxiety and depression acute bruary 2024 12:50pm Former smoker acute May 152024 12:50pm Gestational diabetes acute [facility]br [facility]2024 12:50pm H/O pre-eclampsia in prior , currently acute [facility] 2024 12:50pm 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, antepartum acute April 232024 12:50pm High cholesterol acute May 15, 2024 12:50pm Obesity affecting acute May 15, 2024 12:50pm Ovarian cyst acute April 12:50pm acute May 15, 2024 12:50pm Request for sterilization acute May 15, 2024 12:50pm Seasonal allergies acute ua 2024 12:50pm Supervision of high-risk acute May 15 12:50pm Abnormal glucose level acute [facility] 2024 3:03pm Anxiety and depression acute [facility] 2024 3:03pm Former smoker acute May 29, 2024 3:03pm Gestational diabetes acute [facility] 2024 3:03pm H/O pre-eclampsia in prior , currently acute [facility] 2024 3:03pm Heterozygous factor V Leiden [...] 29, 2024 3:03pm Abnormal glucose level acute [facility] 2024 9:07am Anxiety and depression acute [facility] 2024 9:07am Former smoker acute June 12, 2024 9:07am Gestational diabetes acute [facility] 2024 9:07am H/O pre-eclampsia in prior , currently acute [facility] 2024 9:07am Heterozygous factor V Leiden [...] 12, 2024 9:07am Abnormal glucose level acute [facility] 2024 12:15pm Anxiety and depression acute [facility] 2024 12:15pm Former smoker acute June 19, 2024 12:15pm Gestational diabetes acute [facility] 2024 12:15pm H/O pre-eclampsia in prior , currently acute [facility] 2024 12:15pm Heterozygous factor V Leiden [...] of high-risk acute June 30, 2024 9:44am [facility] Work Phone: 1(403) 565-937512-30-2024 Evaluation note* Diagnosis Onset Date Resolution Status [...] February 212023 8:48am Anxiety and depression acute [facility] 2024 8:23am Former smoker acute March 8:23am H/O pre-eclampsia in prior , currently acute [facility] 2024 8:23am 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, antepartum acute April 172024 8:23am High cholesterol acute April 17, 2024 8:23am Obesity affecting acute April 17, 2024 8:23am Ovarian cyst acute March 8:23am acute April 17, 2024 8:23am Request for sterilization acute April 17, 2024 8:23am Seasonal allergies acute 2024 8:23am Supervision of high-risk acute April 17 8:23am Abnormal glucose level acute [facility] 2024 12:50pm Anxiety and depression acute [facility] 2024 12:50pm Former smoker acute May 152024 12:50pm Gestational diabetes acute [facility]2024 12:50pm H/O pre-eclampsia in prior , currently acute [facility] 2024 12:50pm Heterozygous factor V Leiden affecting [...] May 15 12:50pm Abnormal glucose level acute [facility] 2024 3:03pm Anxiety and depression acute [facility] 2024 3:03pm Former smoker acute May 29, 2024 3:03pm Gestational diabetes acute [facility] 2024 3:03pm H/O pre-eclampsia in prior , currently acute [facility] 2024 3:03pm Heterozygous factor V Leiden [...] 29, 2024 3:03pm Abnormal glucose level acute [facility] 2024 9:07am Anxiety and depression acute [facility] 2024 9:07am Former smoker acute June 12, 2024 9:07am Gestational diabetes acute [facility] 2024 9:07am H/O pre-eclampsia in prior , currently acute [facility] 2024 9:07am Heterozygous factor V Leiden [...] 12, 2024 9:07am Abnormal glucose level acute [facility] 2024 12:15pm Anxiety and depression acute [facility] 2024 12:15pm Former smoker acute June 19, 2024 12:15pm Gestational diabetes acute [facility] 2024 12:15pm H/O pre-eclampsia in prior , currently acute [facility] 2024 12:15pm Heterozygous factor V Leiden [...] 2024 9:29am Ovarian cyst acute June 23, 9:29am acute June 23 9:29am Request for [...] 7:11am Vaginal delivery acute July 132024 7:11am [facility] Work Phone: 1(878) 355-201012-09-2024 Evaluation note* Diagnosis Onset Date Resolution Status Admit Date Anxiety and depression acute De cember 2023 11:54am Former smoker acute February 11:54am H/O pre-eclampsia in prior , currently acute De cember 9th, 2024 11:54am 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, antepartum acute February 272023 11:54am High cholesterol acute February 28, 2024 11:54am Obesity affecting acute February 28, 2024 11:54am Ovarian cyst acute February 11:54am acute February 28, 2024 11:54am Request for sterilization acute February 28, 2024 11:54am Seasonal allergies acute [facility] 2023 11:54am Supervision of high-risk acute [...] March 20, 2024 8:48am Seasonal allergies acute [facility] 2023 8:48am Supervision of high-risk acute March 20, 024 8:48am Hypothyroidism resolved February 212023 8:48am Anxiety and depression acute [facility] 2024 8:23am Former smoker acute March 8:23am H/O pre-eclampsia in prior , currently acute [facility] 2024 8:23am Heterozygous factor V Leiden affecting [...] May 15 12:50pm Abnormal glucose level acute [facility] 2024 3:03pm Anxiety and depression acute [facility] 2024 3:03pm Former smoker acute May 29, 2024 3:03pm Gestational diabetes acute 2024 3:03pm H/O pre-eclampsia in prior , currently acute [facility] 2024 3:03pm 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, antepartum acute May 3:03pm High cholesterol acute May 292024 3:03pm Obesity affecting acute May 29, 2024 3:03pm Ovarian cyst acute May 29, 2024 3:03pm acute May 29 3:03pm Request for sterilization acute May 29, 2024 3:03pm Seasonal allergies acute May 29, 2024 3:03pm Supervision of high-risk acute May 29, 2024 3:03pm [facility] Work Phone: 1([phone]) 122-586612-09-2024 Evaluation note* Diagnosis Onset Date Resolution Status [...] February 28, 2024 11:54am Seasonal allergies acute [facility] 2023 11:54am Supervision of high-risk acute February 27 11:54am Hypothyroidism resolved February 272023 11:54am Anxiety and depression acute [facility] 8:48am Former smoker acute March 202023 8:48am [...] March 20, 2024 8:48am Seasonal allergies acute [facility] 2023 8:48am Supervision of high-risk acute March 20, 024 8:48am Hypothyroidism resolved February 212023 8:48am Anxiety and depression acute [facility] 2024 8:23am Former smoker acute March 8:23am H/O pre-eclampsia in prior , currently acute [facility] 2024 8:23am 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, antepartum acute April 172024 8:23am High cholesterol acute April 17, 2024 8:23am Obesity affecting acute April 17, 2024 8:23am Ovarian cyst acute March 8:23am acute April 17, 2024 8:23am Request for sterilization acute April 17, 2024 8:23am Seasonal allergies acute 2024 8:23am Supervision of high-risk acute April 17 8:23am Abnormal glucose level acute bruary 2024 12:50pm Anxiety and depression acute bruary 2024 12:50pm Former smoker acute May 152024 12:50pm Gestational diabetes acute Febr ua2024 12:50pm H/O pre-eclampsia in prior , currently acute [facility] 2024 12:50pm Heterozygous factor V Leiden affecting [...] May 15 12:50pm Abnormal glucose level acute [facility] 2024 3:03pm Anxiety and depression acute [facility] 2024 3:03pm Former smoker acute May 29, 2024 3:03pm Gestational diabetes acute [facility] 2024 3:03pm H/O pre-eclampsia in prior , currently acute [facility] 2024 3:03pm Heterozygous factor V Leiden [...] 29, 2024 3:03pm Abnormal glucose level acute [facility] 2024 9:07am Anxiety and depression acute [facility] 2024 9:07am Former smoker acute June 12, 2024 9:07am Gestational diabetes acute [facility] 2024 9:07am H/O pre-eclampsia in prior , currently acute [facility] 2024 9:07am 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, antepartum acute May 9:07am High cholesterol acute June 122024 9:07am Obesity affecting acute June 12, 2024 9:07am Ovarian cyst acute June 12, 2024 9:07am acute June 12 9:07am Request for sterilization acute June 12, 2024 9:07am Seasonal allergies acute June 12, 2024 9:07am Supervision of high-risk acute June 12, 2024 9:07am [facility] Work Phone: 1(669) 599-309812-09-2024 Evaluation note* Diagnosis Onset Date Resolution Status [...] February 28, 2024 11:54am Seasonal allergies acute [facility] er 2023 11:54am Supervision of high-risk acute [...] February 212023 8:48am Anxiety and depression acute [facility] 2024 8:23am Former smoker acute March 8:23am H/O pre-eclampsia in prior , currently acute [facility] 2024 8:23am 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, antepartum acute April 172024 8:23am High cholesterol acute April 17, 2024 8:23am Obesity affecting acute April 17, 2024 8:23am Ovarian cyst acute March 8:23am acute April 17, 2024 8:23am Request for sterilization acute April 17, 2024 8:23am Seasonal allergies acute 2024 8:23am Supervision of high-risk acute April 17 8:23am Abnormal glucose level acute [facility] 2024 12:50pm Anxiety and depression acute [facility] 2024 12:50pm Former smoker acute May 152024 12:50pm Gestational diabetes acute Febr 2024 12:50pm H/O pre-eclampsia in prior , currently acute [facility] 2024 12:50pm Heterozygous factor V Leiden affecting [...] May 15 12:50pm Abnormal glucose level acute [facility] 2024 3:03pm Anxiety and depression acute [facility] 2024 3:03pm Former smoker acute May 29, 2024 3:03pm Gestational diabetes acute [facility] 2024 3:03pm H/O pre-eclampsia in prior , currently acute [facility] 2024 3:03pm Heterozygous factor V Leiden [...] 29, 2024 3:03pm Abnormal glucose level acute [facility] 2024 9:07am Anxiety and depression acute [facility] 2024 9:07am Former smoker acute June 12, 2024 9:07am Gestational diabetes acute [facility] 2024 9:07am H/O pre-eclampsia in prior , currently acute [facility] 2024 9:07am Heterozygous factor V Leiden [...] 12, 2024 9:07am Abnormal glucose level acute [facility] 2024 12:15pm Anxiety and depression acute [facility] 2024 12:15pm Former smoker acute June 19, 2024 12:15pm Gestational diabetes acute [facility] 2024 12:15pm H/O pre-eclampsia in prior , currently acute [facility] 2024 12:15pm Heterozygous factor V Leiden [...] of high-risk acute June 19, 2024 12:15pm [facility] Work Phone: 1(233) 679-553809-06-2024 Emergency department Note* Yin Winters RN - 11/26/2023 3:02 AM EDT Written and verbal discharge instructions given to patient. Patient verbally understood discharge instructions. Confirmed correct pharmacy with patient. Patient left in stable condition. [facility]09-06-2024 Emergency department Note* Yin Winters RN - 11/26/2023 3:02 AM EDT Written and verbal discharge instructions given to patient. Patient verbally understood discharge instructions. Confirmed correct pharmacy with patient. Patient left in stable condition. * Robyn Young DO - 11/25/2023 10:30 PM EDT Emergency Department Report [facility] EMERGENCY DEPARTMENT Service Date:.11/26/23 PCP: Nancy Sam [...] until December for her 1st ultrasound in [place], [place]. She started developing a fever today. [...] Use Authorization (EUA) for the qualitative detection zyBOKD-CgT-4 nucleic acid. CHEM 7 (LYTES,BUN,CREA,GLUC) Result Value [...] POSITIVE ANTIBODY SCREEN NEGATIVE ARM BAND NUMBER [id number] URINALYSIS, MACRO Result Value Ref Range COLOR, URINE YELLOW YELLOW APPEARANCE, URINE CLEAR CLEAR Specific [place], Urine >1.030 (H) 1.010 - 1.025 PH [...] Young DO 11/26/23 0251 [facility] Discharge instructions* Discharge Instructions* Robyn Young DO - 11/26/2023 2:47 AM EDT Rest, drink plenty of fluids, use Tylenol for fever. Return emergency department for worsening abdominal pain, inability to tolerate your medications or any concerns. Please follow up closely with your OBGYN * Attachments The following attachments cannot be sent through Care Everywhere. * Fever: General Info (Citizen [place]) * Abdominal Pain ([place]) * : Abdominal Pain ([place]) [facility] Phys[facility] Emergency department Note* Robyn Young DO - 11/25/2023 10:30 PM EDT Emergency Department Report [facility] EMERGENCY DEPARTMENT Service Date:.11/26/23 PCP: Nancy Sam [...] until December for her 1st ultrasound in [place], [place]. She started developing a fever today. [...] Use Authorization (EUA) for the qualitative detection ybBHKB-EaV-3 nucleic acid. CHEM 7 (LYTES,BUN,CREA,GLUC) Result Value [...] TRANSFUSION Result Value Ref Range EXPIRATION DATE 11/28/2023,4544 ABO/RH(D) AB POSITIVE ANTIBODY SCREEN NEGATIVE ARM BAND NUMBER [id number] URINALYSIS, MACRO Result Value Ref Range COLOR, URINE YELLOW YELLOW APPEARANCE, URINE CLEAR CLEAR Specific [place], Urine >1.030 (H) 1.010 - 1.025 PH [...] . . Robyn Young DO 11/26/23 0251 [facility]07-29-2024 Evaluation + Plan note* Assessment & Plan Note - LISETTE Lopez - 10/18/2023 8:38 AM EDTAssociated Problem(s): Constipation Has 1-2 Bms a week. Educated regarding use of metamucil fiber supplementation daily. Drink 3-4 liters of water daily. [facility]07-29-2024 Miscellaneous Notes* Assessment & Plan Note - [...] further improvement in symptoms. documented in this encounterTr[facility] Evaluation + Plan note * Assessment & Plan Note - LISETTE Lopez - 10/18/2023 8:31 AM EDT Associated Problem(s): Obesity, Class III, BMI 40-49.9 (morbid obesity) BMI of 40.78 indicating morbid obesity. Recommend healthy diet/exercise. [facility]07-29-2024 History of Present illness Narrative* LISETTE Lopez [...] medications as directed. Labs done outside of [facility]: No Her last lipid panel was done on 09/13/23, and her ratio of Total Cholesterol/HDL was 5.58. She is not having medication side effects. There is not a FH of IHD or stroke. Lab Results Component Value Date CHOLESTEROL 240 (H) 09/15/2023 TRIG 171 (H) 09/15/2023 HDL 43 09/15/2023 LDLCALC 163 (H) 09/15/2023 documented in this encounterTr[facility] Evaluation + Plan note * Assessment & Plan Note - LISETTE Lopez - 10/18/2023 8:21 AM EDT Associated Problem(s): Elevated LDL cholesterol level Previous labs 09/15/2023 revealed lipid panel revealed elevated cholesterol 240, elevated triglycerides of 171, elevated LDL of 163. Continue Rosuvastatin 5mg at bedtime. Recommend high fiber/low fat diet. [facility]07-29-2024 Evaluation + Plan note* Assessment & Plan Note - LISETTE Lopez - 10/18/2023 8:20 AM EDTAssociated Problem(s): Anxiety and depression PHQ-9: score of 15. DAVION-7: score of 8. Patient reported difficulty with compliance of BID dosing of Wellbutrin. Switching from 75mg BID to 150mg XL for daily dosing of Wellbutrin. Will follow-up in 1-2 months to evaluate for further improvement in symptoms. T [facility]06-24-2024 History of Present illness Narrative* Dominga Ren [...] restless PHQ-9 Score: 19 * Nancy Sam APRN-SANITATION ASSOCIATE - 09/13/2023 8:50 AM EDT Subjective History [...] up Lab review Dep/Anx documented in this [facility]03-12-20[facility] History of Present illness Narrative* Kamlesh Meehan PA-C - 06/01/2023 3:50 PM EDT [facility] NOTE: Name: Yusra Fuentes, 28 y.o. CSN:[id number] PCP: LISETTE Rangel ALL: Allergies Allergen Reactions [...] which she is found some benefit with mywx-pkq-nmnghow meds with nothing lingering or lasting. PMHx: [...] previous visit (from the past 24 hour(s)). COURSE/MEDICAL DECISION MAKING: Yusra is a 28 [...] discharge. Kamlesh Meehan PA-C Advanced Practice Provider [facility] documented [facility] Work Phone: [phone]) 208-140112-07-2023 History of Present illness Narrative* Rebeka Byrnes LPN - 02/25/2023 2:45 PM EST HAND STONER here for annual with pap. Last pap was about 3.5 yrs ago. Patient would like to have IUD removed. They are thinking about trying to conceive. * Karol Rosenthal MD - 02/25/2023 2:45 PM ESTAssociated Order(s): IUD REMOVAL Post-Procedure Diagnose(s): Encounter for IUD removal RON Fuenets is a 28 y.o. female who presents today for concerns including Annual Engraver Pantograph Exam (Here for annual Engraver Pantograph Exam. Desires and will like IUD removed). [...] nursing note reviewed. Exam conducted with a cpas present. Constitutional: General: She is not in [...] exam with routine gynecological exam - KAREN CYTOLOGY-EXECUTIVE VICE PRESIDENT BUSINESS DEVELOPMENT, LIQUID BASED Encouraged annual Engraver Pantograph Exams Encounter for screening for cervical cancer - KAREN CYTOLOGY-EXECUTIVE VICE PRESIDENT BUSINESS DEVELOPMENT, LIQUID BASED We talked about the continuum [...] Karol Rosenthal MD 02/25/2023 documented [facility]Tr[facility] History of Present illness Narrative* Lelia Treviño, YADI-SANITATION ASSOCIATE - 04/26/2022 8:45 AM EST HPI Yusra Fuentes female 1995 presents to the [facility] with Chief Complaint Patient presents with Ear Pain Symptoms started 3 days ago, 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 Took covid this morning and was negative Sore Throat Sinus Pain Cough Patient presents with sinus congestion, productive cough, sore throat, left ear pain started 3-4 days ago. States left ear pain is worse and throbbing. Kept her awake at night. No recorded fevers. Taking yegi-jdk-ufdokdz medications. Negative home COVID19 test. No known [...] infection Orders Placed This Encounter Azithromycin (Zithromax Z-Calos) 250 MG tablet Left AOM and acute URI treated with Zpak. Continue OTC meds. Work note given. If symptoms worsen patient was advised to follow up in our office, primary care provider or the Emergency Dept. Benefits, Risks, Contraindications, and Complications of recommended treatments were explained. The patient understands and agrees to proceed with plan. LISETTE Graham 04/26/2022 documented in this encounterTr[facility] History of Present illness Narrative* Dominga Ren [...] PA at that time) - Semaglutide-Weight Management (Wegovy) 1.7 MG/0.75ML Solution [...] Dep/Anx MWL (on Wegovy) documented in this encounterTr[facility]22 History of Present illness Narrative* Dominga Ren [...] (Wegovy) Dep/Anxiety (refill venlafaxine) [facility] History of Present illness Narrative* Dominga [...] or will restart phentermine) documented in this [facility] Author Balwinder Yee [facility] Note Date/Time September 19, 2024 3:29p [facility] Medical Records Department [address] [place] [address] Anesthesia Postop Eval I 09/19/24 1528 MR#: [id number] Acct: [id number] Name: YUSRA FUENTES Rep #:[id number] : 1995 29 From: Balwinder Yee CRNA PCP: Nancy Sam HAND STONERHonorioC Status:REG SD C Y Race: N Location: [place] [address] Anesthesia: Postop Eval I Current Vital Signs Temperature: 97 F Pulse Rate: 76 Blood Pressure: 136/73 Respiratory Rate: 16 Pulse Ox: 95 Oxygen Delivery Method: Room Air Assessment Airway patent: Yes Spontaneous unlabored respirations: Yes Mental status: Awake and Calm nausea: No Vomiting: No Anesthesia Complication: No Fluid Hydration Crystalloid volume administer (ml): 900 Total IV fluid infused: 900 Progress Note Anesthesia document: Postop Eval 1 completed: Yes 09/19/24 1529 <Electronically signed by Balwinder bacon CRNA> Date _ Balwinder Yee CRNA Cosigner Signature: Date CC: ~ Signed [facility] Work Phone: Discharge summary Author Stephanie Mtz [facility] Note Date/Time September 19, 2024 4:52p m [facility] Medical Records Department [address] [place] [address] Instructions for Home/Discharge Instructions 09/19/24 1554 MR#: [id number] Acct: [id number] Name: YUSRA FUENTES Rep #:[id number] : 1995 29 From: Stephanie bugros MD PCP: KULDIP Marroquin Status:REG SD C Discharge Instructions Diet Discharge Diet: No restrictions DC O2, CPAP, BIPAP needs Home O2 Discharge instructions: No Dressing / Incision Discharge Activity: Return to Normal Activity, May Not Drive ( while taking narcotic pain meds, when pain free), May Shower and May Take a Tub Bath (in 7 days) May resume sexual activity in: 1 week Weight Bearing Status: Full weight bearing Dressing / Incision Call your doctor if your incision/area has: Continuous Slow Oozing, Sudden Increased Bleeding, Increased Pain/ Swelling, Increased Redness and Foul Smelling Discharge Call your doctor if you observe: Fever of 101 or Higher, Using more than 1 pad per hour, Shortness of breath, Chest pain and Uncontrolled pain Suture Line Care: Avoid Pulling/Pushing and Avoid Pinching/Bending Remove Dressing in: 1 week (if present) Cleanse incision/area with: Soap & Water and Keep Dressing Clean & Dry Follow Up Care When: Call to make an appointment with your doctor for a fu/incision check in 1- 2 weeks. Test Results: Test results from this visit will be discussed in further detail at your follow- up appointment, if applicable. Discharge Plan Admission Attending Provider: Stephanie Mtz Primary Care Provider: Nancy Sam Instructions Print Language: [place] Discharge Orders/Prescriptions Prescriptions: No Action Probiotic 3 billion cell capsule 3,000 mmu cells PO QDAY Rx Instructions: administer with a meal Prenatabs FA 1 TABLET tablet 1 tab PO DAILY Referrals / Follow Up: Nancy Sam NP-C [Primary Care Provider] - Disposition Disposition (needs filled in before D/C Order can be placed): Home, Self Care 09/19/24 1554<Electronically signed by Stephanie Mtz MD>Stephanie Mtz MD CC: HAND STONER-C Nancy Sam ~ Signed [facility] Work Phone: Evaluation note* Diagnosis Anxiety- Primary Anxiety state, unspecified Depression, unspecified depression type Adult BMI 40.0-44.9 kg/sq m Body Mass Index 40.0-44.9, adult Acute right-sided low back pain, unspecified whether sciatica present Eczema, unspecified type [facility] Diagnosis Adult BMI 40.0-44.9 kg/sq m- Primary Body Mass Index 40.0-44.9, adult Anxiety Anxiety state, unspecified Depression, unspecified depression type documented [facility]* Diagnosis Adult BMI 40.0-44.9 kg/sq m Body Mass Index 40.0-44.9, adult Anxiety Anxiety state, unspecified Depression, unspecified depression type documented [facility]* Diagnosis Left acute otitis media- Primary Unspecified otitis media Acute upper respiratory infection Acute upper respiratory infections of unspecified site documented [facility]* Diagnosis Well woman exam with routine gynecological exam- Primary Routine gynecological examination Encounter for screening for cervical cancer Encounter for breast cancer screening using non-mammogram modality IUD (intrauterine device) in place Presence of intrauterine contraceptive device Encounter for IUD removal Encounter for removal of intrauterine contraceptive device documented [facility] this encounter [facility]* Diagnosis Eustachian tube dysfunction, left- Primary Acute pharyngitis, unspecified etiology Subacute rhinosinusitis documented in this encounter [facility] Work Phone: Evaluation note* Diagnosis Depression, unspecified depression type- Primary Other fatigue Anxiety disorder, unspecified type Insomnia, unspecified type BMI 40.0-44.9, adult Body Mass Index 40.0-44.9, adult Binge eating Anorexia nervosa documented in this encounter [facility]* Diagnosis Anxiety and depression- Primary Dysthymic disorder Elevated LDL cholesterol level Pure hypercholesterolemia Obesity, Class III, BMI 40-49.9 (morbid obesity) Morbid obesity Constipation, unspecified constipation type documented [facility] encounter [facility]* Diagnosis Anxiety and depression- Primary Dysthymic disorder Elevated LDL cholesterol level Pure hypercholesterolemia Obesity, Class III, BMI 40-49.9 (morbid obesity) Morbid obesity Constipation, unspecified constipation type Lower abdominal pain- Primary Abdominal pain, other specified site First trimester Fever, unspecified fever cause Cyst of left ovary Other and unspecified ovarian cyst documented in this encounter [facility]* Attachments The following attachments cannot be sent through Care Everywhere. * Otitis Media ([place]) documented in [facility] encounterTr[facility] CampusProgress note Author Lara Cespedes [facility] Note Date/Time June 19, 2024 2:4 1pm [facility] Medical Records Department [address] [place] [address] OB Triage Progress Note 06/19/24 1437 MR#: [id number] Acct: [id number] Name: YUSRA FUENTES Rep #:[id number] : 1995 29 From: Lara Cespedes CNM PCP: BE MarroquinC Status:REG CL I Y DOS: Location: [place] [address] Progress Notes Date of Service: 06/19/24 Progress Note: Patient presents for triage evaluation secondary to NST after BPP 6/8 FHT: 135 Moderate variability reactive no decelerations category I tracing [place]: mild-moderate Contractions Assessment and plan: cervical exam done and 1/thick/posterior per nursing, encourage oral hydration, Reactive NST, reassuring maternal and status patient discharged to home to follow-up in office or return to if contractions worsen. See problem list details for additional plan information. Charges/Coding Multi Select Codes Urinary/Genital Urinary/Genital CPT Codes: 22106-41 non-stress test Interp Assessment & Plan (1) [...] COMMENT: PRR, , AUGUST 07/20/24, PC: [employer], : Itz (8) : QUALIFIERS: Weeks of [...] Signature (if applicable): Date CC: ARTEM Cespedes; KULDIP Sam ~ Signed [facility] Work Phone: Progress note Author Stephanie Mtz [facility] Note Date/Time August 24, 2024 11:[address] [facility] [address] [place] [address], [address] [place] [address] OFFICE VISIT Date of Service: 08/24/24 MR#: [id number] Acct: [id number] Name: YUSRA FUENTES Rep #: [id number] : 1995 Provider: Dr. 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 Is patient in pain?: No Allergies mushroom Allergy (Verified 08/24/24 11:29) Swelling Medications ?Medication ?Instructions ?Recorded ?Confirmed ?Type vits,calcium no.78-iron 1 tab PO DAILY pregna ncy 04/18/15 08/24/24 History fumarate-folic acid 29 mg-1 mg tablet (Prenatabs FA) lactobacillus combination no.4 3 3,000 mmu cells PO QD AY 08/24/24 08/24/24 History billion cell capsule (Probiotic) : Yes [facility] Medical History Gestational diabetes History of pulmonary embolism Depression Psoriasis Seasonal allergies 39 weeks gestation of Family History Mother Heart disease Hypothyroidism Grandmother , great-grandma Breast cancer Social History (Updated 08/24/24 @ 11:34 by Hilary Boyle) adopted: No household members: spouse and children number of children: 3 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 Date Name GA/Weeks Outcome Route Bth Weight Infant Gen Labor Lgth Anesthesia Del Locatn Provider FOB Unknown Chemical - 201704/06/15 [place] 38 live - full term 8lbs 14oz Male 36 epidural [facility] 01/12/19 [place] 39 live - full term 9lbs 4oz Male 8 ep idural [facility] Itz 07/13/24 [place] 39 live - full term 8lbs 11oz Female epidural [facility] Delivery Date: 04/06/15 Last Updated by: Sujey Hong RN Gained 60lbs, Induced d/t early pre-e Delivery Date: 01/12/19 Last Updated by: Sujey Hong RN Induction d/t size Delivery Date: 07/13/24 Last Updated by: Sujey Hong RN See problem list for complications, and IOL SM GDM 39 Depression Screen PHQ-2/9 PHQ-2 Over the last 2 weeks, how often have you been bothered by any of the following problems? 1. Little interest or pleasure in doing things: not at all 2. Feeling down, depressed, or hopeless: not at all Total score: 0 Post HPI Routine Follow-Up: Details: YUSRA FUENTES is a 29 year old who presents for her post visit. ROS Const Reports system reviewed and no additional complaints, except as documented GI Reports system reviewed and no additional complaints, except as documented, Denies bloating, Denies constipation, Denies nausea and Denies vomiting Reports system reviewed and no additional complaints, except as documented, Denies abnormal vaginal bleeding, Denies pelvic pain, Denies sexual dysfunction,Denies urinary incontinence, Denies urinary hesitancy, Denies urinary urgency and Denies vaginal discharge Skin/Breast Reports system reviewed and no additional complaints, except as documented and Reports as per HPI Psych Reports as per HPI Exam Const General: cooperative, healthy appearing, comfortable and no acute distress HENMT Head: normal to inspection Neck Neck: normal visual inspection and no lymphadenopathy Thyroid: thyroid normal Chest Breast inspection: normal inspection of the breasts and normal inspection of theaxillae Breast palpation: normal palpation of the breasts and normal palpation of the axillae Resp Effort & Inspection: normal respiratory effort GI Inspection: normal to inspection Palpation: soft, no hepatosplenomegaly and nontender General: bladder normal to palpation External Female Exam: normal external appearance and normal appearance of the urethra Urethra: normal appearance of the urethra Speculum Exam - Vagina: normal appearance of the vagina and normal vaginal discharge Speculum Exam - Cervix: normal appearance of the cervix Bimanual Exam- Vagina & Uterus: normal bimanual exam, uterine size normal, bladder normal to palpation, uterine shape normal and non-tender Bimanual Exam- Adnexa, other: normal adnexae and normal Pelvic Support: normal Skin General: no rashes or lesions noted Coding Level of Care Code No Charge Diagnoses Routine Follow-Up Z39.2 Assessment and Plan Assessment and Plan (1) Routine Follow-Up: Plan Cervical cancer screening: pap up to date Contraceptive plans: plan sterilization Complications: vaginal odor- red top sent Follow up for annual exams or sooner if indicated. 08/24/24 1153 <Electronically signed by Stephanie bernal MD> Date _ Stephanie Mtz MD [facility] Signature: Date (if applicable) CC: ~ [place] [facility] Work Phone: Reason for referral (narrative)No reason for referral information availableWTriHealth [facility] Work Phone: Summary Purpose Family History Relationship Condition Age at Onset Recorded Date/T stephani mother Cardiac disease Unknown Hypothyroidism Unknown grandmother Malignant neoplasm of breast Unknown Advance Directives Advance Directive Response Recorded Date/ Time Living Will No December 29 10:08am Power of Instrument Installer No December 30, 2023 10:08am Advance Directive Response Recorded Date/ Time Living Will No December 29 10:08am Do you have a Healthcare Power of Instrument Installer? No December 30, 2023 10:08am Advance Directive Response Recorded Date/ Time Living Will No December 29 10:08am Do you have a Healthcare Power of Instrument Installer? No December 30, 2023 10:08am Do you have a Healthcare Power of Instrument Installer? No July 13, 2024 7:31am Advance Directive Response Recorded Date/ Time Living Will No December 29 10:08am Do you have a Healthcare Power of Instrument Installer? No December 30, 2023 10:08am Do you have a Healthcare Power of Instrument Installer? No July 13, 2024 7:31am Do you have a Healthcare Power of Instrument Installer? No September 05, 2024 3:18pm History of Present Illness * Nancy Sam APRN-CNP - 06/24/2018 4:23 PM EDT Pt left message today stating she stopped her escitalopram d/t newly . She will follow up with her OBGYN documented in this encounter Assessments Diagnosis , unspecified gestational age- Primary Reason for Referral Specialty Diagnoses / Procedures Referred By Contac t Referred To Contact Diagnoses Adult BMI 40.0-44.9 kg/sq m Nancy Sam APRN-CHRISTIAN [address] [place] [address] Referral ID Status Reason Start Date Expiration Date V isits Requested Visits Authorized [id number] Pending Review 1 1 Referral ID Status Reason Start Date Expiration Date Visits Re quested Visits Authorized [id number] Closed 1 1 Referral ID Status Reason Start Date Expiration Date Visits Re quested Visits Authorized [id number] Closed 1 1 Referral ID Status Reason Start Date Expiration Date V isits Requested Visits Authorized [id number] Pending Review 1 1 Specialty Diagnoses / Procedures Referred By Contac t Referred To Contact Procedures US OB TRANSVAGINAL/CERVICAL LENGTH Marker, Robyn Fox DO [address] [place] [address] Referral ID Status Reason Start Date Expiration Date V isits Requested Visits Authorized [id number] New Request 11/25/2023 12/19/2024 1 1 Specialty Diagnoses / Procedures Referred By Ernst teixeira Referred To Contact Diagnoses Lower abdominal pain Procedures US PELVIC W TRANSVAGINAL Marker, Robyn Fox, DO [address] [place] [address] Referral ID Status Reason Start Date Expiration Date V isits Requested Visits Authorized [id number] New Request 11/25/2023 12/19/2024 1 1 Chief [...] pre-eclampsia in prior , cu rrently March 31st, 2025 12:15pm Heterozygous factor V Leiden affecting in [...] reactive June 9:29am Obesity affecting June 23 9:29am Ovarian cyst June 23, 2024 9:29 [...] Vaginal delivery July 13, 2024 7:1 1am Chief Complaint Admit Date 30 WK OB May 15, 2024 12:50pm [...] VAGINAL DELIVERY July 14, 2024 8:1 9am visit (obstetrics) August 24, 2024 11:26am Reason for Visit Admit Date Anxiety and depression May 15 12:50pm Former smoker May 15, 2024 12:50pm Gestational diabetes May 15, 2024 12:50pm H/O pre-eclampsia in prior , cu rrently May 15, 2024 12:50pm 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, antepartum May 15, 2024 12:50pm High cholesterol May 15, 2024 12:50pm Ovarian cyst May 15, 2024 12:50pm Request for sterilization May 15, 2024 12:50pm Seasonal allergies May 15, 2024 12:50pm Abnormal glucose level May 15 12:50pm Obesity affecting April 12:50pm May 15, 2024 12:50pm Supervision of high-risk Kriku elías 2024 12:50pm Anxiety and depression May 29, 2024 3:03pm Former smoker May 29, 2024 3:0 3pm Gestational diabetes May 29, 2024 3: 03pm H/O pre-eclampsia in prior , cu rrently May 29, 2024 3:03pm 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, antepartum May 29, 2024 3:03pm High cholesterol May 29, 2024 3:0 3pm Ovarian cyst May 29, 2024 3:0 3pm Request for sterilization May 29 3:03pm Seasonal allergies May 29, 2024 3:0 3pm Abnormal glucose level May 29, 2024 3:03pm Obesity affecting May 29, 2024 3:03pm May 29, 2024 3:0 3pm Supervision of high-risk May 29, 2024 3:03pm Anxiety and depression June 12, 2024 9:07am Former smoker June 12, 2024 9:0 7am Gestational diabetes June 12, 2024 9: 07am H/O pre-eclampsia in prior , cu rrently June 12, 2024 9:07am 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, antepartum June 12, 2024 9:07am High cholesterol June 12, 2024 9:0 7am Ovarian cyst June 12, 2024 9:0 7am Request for sterilization June 12 9:07am Seasonal allergies June 12, 2024 9:0 7am Abnormal glucose level June 12, 2024 9:07am Obesity affecting June 12, 2024 9:07am June 12, 2024 9:0 7am Supervision of high-risk June 12, 2024 9:07am Anxiety and depression June 19, 2024 12:15pm Former smoker June 19, 2024 12: 15pm Gestational diabetes June 19, 2024 12 :15pm H/O pre-eclampsia in prior , cu rrently June 19, 2024 12:15pm 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, antepartum June 19, 2024 12:15pm High cholesterol June 19, 2024 12: 15pm Ovarian cyst June 19, 2024 12: 15pm Request for sterilization June 19 12:15pm Seasonal allergies June 19, 2024 12: 15pm Abnormal glucose level June 19, 2024 12:15pm NST (non-stress test) reactive May 12:15pm Obesity affecting June 19, 2024 12:15pm June 19, 2024 12: 15pm Supervision of high-risk June 19, 2024 12:15pm Anxiety and depression June 23, 2024 9 :29am Former smoker June 23, 2024 9:29 am Gestational diabetes June 23, 2024 9:2 9am H/O pre-eclampsia in prior , cu rrently June 23, 2024 9:29am 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, antepartum June 23, 2024 9:29am High cholesterol June 23, 2024 9:29 am Ovarian cyst June 23, 2024 9:29 am Request for sterilization June 23 9:29am Seasonal allergies June 23, 2024 9:29 am Breech presentation June 23, 2024 9:29 am Abnormal glucose level June 23, 2024 9 :29am NST (non-stress test) reactive June 9:29am Obesity affecting June 23 9:29am June 23, 2024 9:29 am Supervision of high-risk June 23, 2024 9:29am Anxiety and depression June 30, 2024 9:44am Former smoker June 30, 2024 9:4 4am Gestational diabetes June 30, 2024 9: 44am H/O pre-eclampsia in prior , cu rrently June 30, 2024 9:44am 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, antepartum June 30, 2024 9:44am High cholesterol June 30, 2024 9:4 4am Ovarian cyst June 30, 2024 9:4 4am Request for sterilization June 30 9:44am Seasonal allergies June 30, 2024 9:4 4am Breech presentation June 30, 2024 9:4 4am Abnormal glucose level June 30, 2024 9:44am NST (non-stress test) reactive June 9:44am Obesity affecting June 30, 2024 9:44am June 30, 2024 9:4 4am Supervision of high-risk June 30, 2024 9:44am Anxiety and depression July 07, 2024 12:50pm Former smoker July 07, 2024 12: 50pm Gestational diabetes July 07, 2024 12 :50pm H/O pre-eclampsia in prior , cu rrently July 07, 2024 12:50pm 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, antepartum July 07, 2024 12:50pm High cholesterol July 07, 2024 12: 50pm Ovarian cyst July 07, 2024 12: 50pm Request for sterilization July 07 12:50pm Seasonal allergies July 07, 2024 12: 50pm Abnormal glucose level July 07, 2024 12:50pm NST (non-stress test) reactive June 12:50pm Obesity affecting July 07, 2024 12:50pm July 07, 2024 12: 50pm Supervision of high-risk July 07, 2024 12:50pm Anxiety and depression July 13, 2024 7:11am Former smoker July 13, 2024 7:1 1am Gestational diabetes July 13, 2024 7: 11am H/O pre-eclampsia in prior , cu rrently July 13, 2024 7:11am 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, antepartum July 13, 2024 7:11am High cholesterol July 13, 2024 7:1 1am Ovarian cyst July 13, 2024 7:1 1am Request for sterilization July 13 7:11am Seasonal allergies July 13, 2024 7:1 1am Vaginal delivery July 13, 2024 7:1 1am Abnormal glucose level July 13, 2024 7:11am Obesity affecting July 13, 2024 7:11am July 13, 2024 7:1 1am Supervision of high-risk July 13, 2024 7:11am Encounter for induction of labor June 212024 7:11am Routine Follow-Up August 24 11:26am Chief Complaint Admit Date 32 WEEK GROWTH May 23, 2024 9:4 [...] VAGINAL DELIVERY July 14, 2024 8:1 9am visit (obstetrics) August 24, 2024 11:26am Laparoscopic, bilateral Salpingectomy Ryanne ne 2024 12:59pm Laparoscopic, bilateral Salpingectomy Ryanne ly 2024 12:57pm Laparoscopic, bilateral Salpingectomy Ju ly 2024 3:54pm Reason for Visit Admit Date Anxiety and depression May 29, 2024 3:03pm Former smoker May 29, 2024 3:0 3pm Gestational diabetes May 29, 2024 3: 03pm H/O pre-eclampsia in prior , cu rrently May 29, 2024 3:03pm 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, antepartum May 29, 2024 3:03pm High cholesterol May 29, 2024 3:0 3pm Ovarian cyst May 29, 2024 3:0 3pm Request for sterilization May 29 3:03pm Seasonal allergies May 29, 2024 3:0 3pm Abnormal glucose level May 29, 2024 3:03pm Obesity affecting May 29, 2024 3:03pm May 29, 2024 3:0 3pm Supervision of high-risk May 29, 2024 3:03pm Anxiety and depression June 12, 2024 9:07am Former smoker June 12, 2024 9:0 7am Gestational diabetes June 12, 2024 9: 07am H/O pre-eclampsia in prior , cu rrently June 12, 2024 9:07am 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, antepartum June 12, 2024 9:07am High cholesterol June 12, 2024 9:0 7am Ovarian cyst June 12, 2024 9:0 7am Request for sterilization June 12 9:07am Seasonal allergies June 12, 2024 9:0 7am Abnormal glucose level June 12, 2024 9:07am Obesity affecting June 12, 2024 9:07am June 12, 2024 9:0 7am Supervision of high-risk June 12, 2024 9:07am Anxiety and depression June 19, 2024 12:15pm Former smoker June 19, 2024 12: 15pm Gestational diabetes June 19, 2024 12 :15pm H/O pre-eclampsia in prior , cu rrently June 19, 2024 12:15pm 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, antepartum June 19, 2024 12:15pm High cholesterol June 19, 2024 12: 15pm Ovarian cyst June 19, 2024 12: 15pm Request for sterilization June 19 12:15pm Seasonal allergies June 19, 2024 12: 15pm Abnormal glucose level June 19, 2024 12:15pm NST (non-stress test) reactive May 12:15pm Obesity affecting June 19, 2024 12:15pm June 19, 2024 12: 15pm Supervision of high-risk June 19, 2024 12:15pm Anxiety and depression June 23, 2024 9 :29am Former smoker June 23, 2024 9:29 am Gestational diabetes June 23, 2024 9:2 9am H/O pre-eclampsia in prior , cu rrently June 23, 2024 9:29am 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, antepartum June 23, 2024 9:29am High cholesterol June 23, 2024 9:29 am Ovarian cyst June 23, 2024 9:29 am Request for sterilization June 23 9:29am Seasonal allergies June 23, 2024 9:29 am Breech presentation June 23, 2024 9:29 am Abnormal glucose level June 23, 2024 9 :29am NST (non-stress test) reactive June 9:29am Obesity affecting June 23, 025 9:29am June 23, 2024 9:29 am Supervision of high-risk June 23, 2024 9:29am Anxiety and depression June 30, 2024 9:44am Former smoker June 30, 2024 9:4 4am Gestational diabetes June 30, 2024 9: 44am H/O pre-eclampsia in prior , cu rrently June 30, 2024 9:44am 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, antepartum June 30, 2024 9:44am High cholesterol June 30, 2024 9:4 4am Ovarian cyst June 30, 2024 9:4 4am Request for sterilization June 30 9:44am Seasonal allergies June 30, 2024 9:4 4am Breech presentation June 30, 2024 9:4 4am Abnormal glucose level June 30, 2024 9:44am NST (non-stress test) reactive June 9:44am Obesity affecting June 30, 2024 9:44am June 30, 2024 9:4 4am Supervision of high-risk June 30, 2024 9:44am Anxiety and depression July 07, 2024 12:50pm Former smoker July 07, 2024 12: 50pm Gestational diabetes July 07, 2024 12 :50pm H/O pre-eclampsia in prior , cu rrently July 07, 2024 12:50pm 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, antepartum July 07, 2024 12:50pm High cholesterol July 07, 2024 12: 50pm Ovarian cyst July 07, 2024 12: 50pm Request for sterilization July 07 12:50pm Seasonal allergies July 07, 2024 12: 50pm Abnormal glucose level July 07, 2024 12:50pm NST (non-stress test) reactive June 12:50pm Obesity affecting July 07, 2024 12:50pm July 07, 2024 12: 50pm Supervision of high-risk July 07, 2024 12:50pm Anxiety and depression July 13, 2024 7:11am Former smoker July 13, 2024 7:1 1am Gestational diabetes July 13, 2024 7: 11am H/O pre-eclampsia in prior , cu rrently July 13, 2024 7:11am 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, antepartum July 13, 2024 7:11am High cholesterol July 13, 2024 7:1 1am Ovarian cyst July 13, 2024 7:1 1am Request for sterilization July 13 7:11am Seasonal allergies July 13, 2024 7:1 1am Vaginal delivery July 13, 2024 7:1 1am Abnormal glucose level July 13, 2024 7:11am Obesity affecting July 13, 2024 7:11am July 13, 2024 7:1 1am Supervision of high-risk July 13, 2024 7:11am Encounter for induction of labor June 212024 7:11am Routine Follow-Up August 24 11:26am Sterilization September 19, 2024 12:57 pm Additional Source Comments INFORMATION SOURCE (unrecogn ized section and content) DATE CREATED AUTHOR 09/13/2017 [facility] DATE CREATED AUTHOR AUTHOR'S ORGANIZ ATION 11/14/2017 [facility] DATE CREATED AUTHOR AUTHOR'S ORGANIZ ATION 03/20/2022 [facility] DATE CREATED AUTHOR AUTHOR'S ORGANIZ ATION 06/03/2023 [facility] DATE CREATED AUTHOR AUTHOR'S ORGANIZ ATION 12/01/2023 [facility] DATE CREATED AUTHOR AUTHOR'S ORGANIZ ATION 07/25/2024 [facility] DATE CREATED AUTHOR AUTHOR'S ORGANIZ ATION 09/19/2024 [facility] Reason for Visit (unrecogniz ed section and content) Reason Comments Appointment Reason Comments Anxiety Depression Eating Disorder Binge eating Nasal Congestion Back Pain middle Dry Skin Eczema Weight Management Session Wants to resta rt Adipex Obesity Reason Comments Obesity Weight Management Session Reason Comments Obesity Weight Management Session Anxiety Depression Reason Comments Ear Pain Symptoms started 3 d ays ago, 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 Took covid this morning and was negative Sore Throat Sinus Pain Cough Reason Comments Annual Exam Here for annual Engraver Pantograph Exam. 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 Diagnoses Encounter to establish care System, Provider Not In Karol Rosenthal MD [address] [place] [address] Referral ID Status Reason Start Date Expiration Date Visits Re quested Visits Authorized [id number] Closed 02/10/2023 03/06/2024 1 1 Reason Comments [...] Care Teams (unrecognized sec tion and content) Peanut Salter Relationship Specialty Start Date End Date Nancy Sam APRN-CNP PCP - General Certified Nurse Practitioner 09/06/17 Peanut Salter Relationship Specialty Start Date End Date Nancy Sam APRN-CNP PCP - General Certified Nurse Practitioner 09/06/17 Peanut Salter Relationship Specialty Start Date End Date Nancy Sam APRN-CNP PCP - General Certified Nurse Practitioner 09/06/17 Peanut Salter Relationship Specialty Start Date End Date Nancy Sam APRNCHRISTIAN PCP - General Certified Nurse Practitioner 09/06/17 Peanut Salter Relationship Specialty Start Date End Date [facility] - General Certified Nurse Practitioner 09/06/17 Peanut Salter Relationship Specialty Start Date End Date [facility] [address] [place] [address] [phone] PCP - General 11/10/19 Peanut Salter Relationship Specialty Start Date End Date [facility] - General Certified Nurse Practitioner 09/06/17 Peanut Salter Relationship Specialty Start Date End Date [facility] - General Certified Nurse Practitioner 09/06/17 Peanut Salter Relationship Specialty Start Date End Date [facility] P[facility] - General Certified Nurse Practitioner 09/06/17 Team Status: Active Member Role Status Dates KULDIP Marroquin Primary Care Provider Active Team Status: Inactive Member Role Status Dates No Primary Care Physician Primary Care Provider Active Start: February 28, 2024 End: February 28, 2024 No Primary Care Physician Referring Provider Active Start: February 28, 2024 End: February 28, 2024 [place] HAND STONER, HAND STONER-C Attending Provider Active Start: February 28, 2024 End: February 28, 2024 Team Status: Inactive Member Role Status Dates No Primary Care Physician Primary Care Provider Active Start: March 10, 2024 End: March 10, 2024 [place] HAND STONER, HAND STONER-C Attending Provider Active Start: March 10, 2024 End: March 10, 2024 [place] HAND STONER, HAND STONER-C Referring Provider Active Start: March 10, 2024 [...] Inactive Member Role Status Dates [place] HAND STONER, HAND STONER-C Attending Provider Active Start: April 25, 2024 End: April 25, 2024 [place] HAND STONER, HAND STONER-C Referring Provider Active Start: April 25, 2024 End: April 25, 2024 Nancy Sam NP-C Primary Care Provider Active Start: April 25, 2024 End: April 25, 2024 Team Status: Inactive Member Role Status Dates No Primary Care Physician Referring Provider Active Start: May 15, 2024 End: May 15, 2024 Lara Cespedes CNM Attending Provider Active S tart: May 15, 2024 End: May 15, 2024 Nancy Sam , HAND STONER-C Primary Care Provider Active Start: May 15, 2024 End: May 15, 2024 Team Status: Inactive Member Role Status Dates Dr. Stephanie Mtz MD Attending Provider Active Start: May 23, 2024 End: May 23, 2024 Dr. Stephanie Mtz MD Referring Provider Active Start: May 23, 2024 End: May 23, 2024 Nancy Sam , HAND STONER-C Primary Care Provider Active Start: May 23, 2024 End: May 23, 2024 Team Status: Inactive Member Role Status Dates No Primary Care Physician Referring Provider Active Start: May 29, 2024 End: May 29, 2024 Lara Cespedes CNM Attending Provider Active S tart: May 29, 2024 End: May 29, 2024 Nancy Sam , HAND STONER-C Primary Care Provider Active Start: May 29, 2024 End: May 29, 2024 Team Status: Inactive Member Role Status Dates No Primary Care Physician Referring Provider Active Start: June 12, 2024 End: June 12, 2024 Dr. Britany Davalos DO Attending Provider Activ e Start: June 12, 2024 End: June 12, 2024 Nancy Sam , HAND STONER-C Primary Care Provider Active Start: June 12, 2024 End: June 12, 2024 Team Status: Inactive Member Role Status Dates Dr. Stephanie Mtz MD Attending Provider Active Start: June 12, 2024 End: June 12, 2024 Dr. Stephanie Mtz MD Referring Provider Active Start: June 12, 2024 End: June 12, 2024 Nancy Sam , HAND STONER-C Primary Care Provider Active Start: June 12, 2024 End: June 12, 2024 Team Status: Inactive Member Role Status Dates Dr. Stephanie Mtz MD Referring Provider Active Start: June 19, 2024 End: June 19, 2024 Dr. Stephanie Mtz MD Other Provider Active Start: June 19, 2024 End: June 19, 2024 Nancy Sam , HAND STONER-C Primary Care Provider Active Start: June 19, 2024 End: June 19, 2024 Lara Cespedes CNM Attending Provider Active S tart: June 19, 2024 End: June 19, 2024 Team Status: Active Member Role Status Dates Dr. Stephanie Mtz MD Referring Provider Active Start: June 19, 2024 Dr. Stephanie Mtz MD Other Provider Active Start: June 19, 2024 Nancy Sam , HAND STONER-C Primary Care Provider Active Start: June 19, 2024 Lara Cespedes CNM Attending Provider Active S tart: June 19, 2024 Lara Cespedes CNM Other Provider Active Start : June 19, 2024 Team Status: Inactive Member Role Status Dates Nancy Sam , HAND STONER-C Primary Care Provider Active Start: June 23, 2024 End: June 23, 2024 Nancy Sam HAND STONER-C Referring Provider Active S tart: June 23, 2024 End: June 23, 2024 Lara Cespedes CNM Attending Provider Active S tart: June 23, 2024 End: June 23, 2024 Team Status: Inactive Member Role Status Dates Nancy Sam HAND STONER-C Primary Care Provider Active Start: June 23, [...] Start: June 27, 2024 Nancy Sam , HAND STONER-C Primary Care Provider Active Start: June 27, 2024 Team Status: Inactive Member Role Status Dates Dr. Stephanie Mtz MD Attending Provider Active Start: June 27, 2024 End: June 27, 2024 Dr. Stephanie Mtz MD Referring Provider Active Start: June 27, 2024 End: June 27, 2024 Nancy Sam , HAND STONER-C Primary Care Provider Active Start: June 27, 2024 End: June 27, 2024 Team Status: Inactive Member Role Status Dates Nancy Sam , HAND STONER-C Primary Care Provider Active Start: June 30, 2024 End: June 30, 2024 Nancy Sam , HAND STONER-C Referring Provider Active S tart: June 30, [...] End: July 03, 2024 Nancy Sam , HAND STONER-C Primary Care Provider Active Start: July 03, 2024 End: July 03, 2024 Team Status: Inactive Member Role Status Dates Nancy Sam , HAND STONER-C Primary Care Provider Active Start: July 07, 2024 End: July 07, 2024 Nancy Sam , HAND STONER-C Referring Provider Active S tart: July 07, [...] End: July 10, 2024 Nancy Sam , HAND STONER-C Primary Care Provider Active Start: July 10, 2024 End: July 10, 2024 Team Status: Inactive Member Role Status Dates Nancy Sam , HAND STONER-C Primary Care Provider Active Start: July 13, [...] Member Role Status Dates Nancy Sam , HAND STONER-C Primary Care Provider Active Start: July 13, 2024 Dr. Stephanie Mtz MD Admit Provider Active Start: July 13, 2024 Dr. Stephanie Mtz MD Attending Provider Active Start: July 13, 2024 Dr. Stephanie Mtz MD Referring Provider Active Start: July 13, 2024 Dr. Stephanie Mtz MD Other Provider Active Start: July 13, 2024 Team Status: Active Member Role Status Dates Nancy Sam , HAND STONER-C Primary Care Provider Active Start: July 14, 2024 Dr. Stephanie Mtz MD Admit Provider Active Start: July 14, 2024 Dr. Stephanie Mtz MD Referring Provider Active Start: July 14, 2024 Dr. Stephanie Mtz MD Other Provider Active Start: July 14, 2024 Delisa Molina CNM Attending Provider Active Start: July 14, 2024 Team Status: Inactive Member Role Status Dates Nancywally Sam , HAND STONER-C Primary Care Provider Active Start: August 24, 2024 End: August 24, 2024 Nancywally Sam , HAND STONER-C Referring Provider Active S tart: August 24, 2024 End: August 24, 2024 Dr. Stephanie Mtz MD Attending Provider Active Start: August 24, 2024 End: August 24, 2024 Team Status: Inactive Member Role Status Dates Nancywally Sam , HAND STONER-C Primary Care Provider Active Start: August 24, 2024 End: August 24, 2024 Dr. Stephanie Mtz MD Attending Provider Active Start: August 24, 2024 End: August 24, 2024 Dr. Stephanie Mtz MD Referring Provider Active Start: August 24, 2024 End: August 24, 2024 Team Status: Active Member Role/Relationship Status Dates Nancywally Sam , HAND STONER-C Primary Care Provider Active Team Status: Inactive Member Role/Relationship Status Dates Dr. Stephanie Mtz MD Attending Provider Active Start: May 23, 2024 End: May 23, 2024 Dr. Stephanie Mtz MD Referring Provider Active Start: May 23, 2024 End: May 23, 2024 Nancy Sam , HAND STONER-C Primary Care Provider Active Start: May 23, 2024 End: May 23, 2024 Team Status: Inactive Member Role/Relationship Status Dates No Primary Care Physician Referring Provider Active Start: May 29, 2024 End: May 29, 2024 Lara Cespedes CNM Attending Provider Active S tart: May 29, 2024 End: May 29, 2024 Nancy Sam , HAND STONER-C Primary Care Provider Active Start: May 29, 2024 End: May 29, 2024 Team Status: Inactive Member Role/Relationship Status Dates No Primary Care Physician Referring Provider Active Start: June 12, 2024 End: June 12, 2024 Dr. Britany Davalos DO Attending Provider Activ e Start: June 12, 2024 End: June 12, 2024 Nancy Sam , HAND STONER-C Primary Care Provider Active Start: June 12, 2024 End: June 12, 2024 Team Status: Inactive Member Role/Relationship Status Dates Dr. Stephanie Mtz MD Attending Provider Active Start: June 12, 2024 End: June 12, 2024 Dr. Stephanie Mtz MD Referring Provider Active Start: June 12, 2024 End: June 12, 2024 Nancy Sam , [employer] Primary Care Provider Active Start: June 12, 2024 End: June 12, 2024 Team Status: Inactive Member Role/Relationship Status Dates Dr. Stephanie Mtz MD Referring Provider Active Start: June 19, 2024 End: June 19, 2024 Dr. Stephanie Mtz MD Other Provider Active Start: June 19, 2024 End: June 19, 2024 Nancy Sam , [employer] Primary Care Provider Active Start: June 19, 2024 End: June 19, 2024 Lara Cespedes CNM Attending Provider Active S tart: June 19, 2024 End: June 19, 2024 Team Status: Active Member Role/Relationship Status Dates Dr. Stephanie Mtz MD Referring Provider Active Start: June 19, 2024 Dr. Stephanie Mtz MD Other Provider Active Start: June 19, 2024 Nancy Sam , [employer] Primary Care Provider Active Start: June 19, 2024 Lara Cespedes CNM Attending Provider Active S tart: June 19, 2024 Lara Cespedes CNM Other Provider Active Start : June 19, 2024 Team Status: Inactive Member Role/Relationship Status Dates Nancy Sam [employer] Primary Care Provider Active Start: June 23, 2024 End: June 23, 2024 Nancy Sam , [employer] Referring Provider Active S tart: June 23, 2024 End: June 23, 2024 Lara Cespedes CNM Attending Provider Active S tart: June 23, 2024 End: June 23, 2024 Team Status: Inactive Member Role/Relationship Status Dates Nancy Sam , [employer] Primary Care Provider Active Start: June 23, 2024 End: June 23, 2024 Lara Cespedes CNM Attending Provider Active S tart: June 23, 2024 End: June 23, 2024 Lara eCspedes CNM Referring Provider Active S tart: June 23, 2024 End: June 23, 2024 Team Status: Inactive Member Role/Relationship Status Dates Dr. Stephanie Mtz MD Attending Provider Active Start: June 27, 2024 End: June 27, 2024 Dr. Stephanie Mtz MD Referring Provider Active Start: June 27, 2024 End: June 27, 2024 Nancy Sam , [employer] Primary Care Provider Active Start: June 27, 2024 End: June 27, 2024 Team Status: Inactive Member Role/Relationship Status Dates Nancywally Sam , [employer] Primary Care Provider Active Start: June 30, 2024 End: June 30, 2024 Nancywally Sam , [employer] Referring Provider Active S tart: June 30, 2024 End: June 30, 2024 Dr. Britany Davalos DO Attending Provider Activ e Start: June 30, 2024 End: June 30, 2024 Team Status: Inactive Member Role/Relationship Status Dates Dr. Stephanie Mtz MD Attending Provider Active Start: July 03, 2024 End: July 03, 2024 Dr. Stephanie Mtz MD Referring Provider Active Start: July 03, 2024 End: July 03, 2024 Nancywally Sam , [employer] Primary Care Provider Active Start: July 03, 2024 End: July 03, 2024 Team Status: Inactive Member Role/Relationship Status Dates Nancywally Sam , [employer] Primary Care Provider Active Start: July 07, 2024 End: July 07, 2024 Nancy Sam , [employer] Referring Provider Active S tart: July 07, 2024 End: July 07, 2024 Dr. Stephanie Mtz MD Attending Provider Active Start: July 07, 2024 End: July 07, 2024 Team Status: Inactive Member Role/Relationship Status Dates Dr. Stephanie Mtz MD Attending Provider Active Start: July 10, 2024 End: July 10, 2024 Dr. Stephanie Mtz MD Referring Provider Active Start: July 10, 2024 End: July 10, 2024 Nancy Sam , [employer] Primary Care Provider Active Start: July 10, 2024 End: July 10, 2024 Team Status: Inactive Member Role/Relationship Status Dates Nancy Sam , [employer] Primary Care Provider Active Start: July 13, 2024 End: July 14, 2024 Dr. Setphanie Mtz MD Admit Provider Active Start: July 13, 2024 End: July 14, 2024 Dr. Stephanie Mtz MD Attending Provider Active Start: July 13, 2024 End: July 14, 2024 Dr. Stephanie Mtz MD Referring Provider Active Start: July 13, 2024 End: July 14, 2024 Team Status: Active Member Role/Relationship Status Dates Nancywally Sam , [employer] Primary Care Provider Active Start: July 13, 2024 Dr. Stephanie Mtz MD Admit Provider Active Start: July 13, 2024 Dr. Stephanie Mtz MD Attending Provider Active Start: July 13, 2024 Dr. Stephanie Mtz MD Referring Provider Active Start: July 13, 2024 Dr. Stephanie Mtz MD Other Provider Active Start: July 13, 2024 Team Status: Active Member Role/Relationship Status Dates Nancywally Sam , [employer] Primary Care Provider Active Start: July 14, 2024 Dr. Stephanie Mtz MD Admit Provider Active Start: July 14, 2024 Dr. Stephanie Mtz MD Referring Provider Active Start: July 14, 2024 Dr. Stephanie Mtz MD Other Provider Active Start: July 14, 2024 Delisa Molina CNM Attending Provider Active Start: July 14, 2024 Team Status: Inactive Member Role/Relationship Status Dates Nancy Sam , [employer] Primary Care Provider Active Start: August 24, 2024 End: August 24, 2024 Nancy Sam , [employer] Referring Provider Active S tart: August 24, 2024 End: August 24, 2024 Dr. Stephanie Mtz MD Attending Provider Active Start: August 24, 2024 End: August 24, 2024 Team Status: Inactive Member Role/Relationship Status Dates Nancy Sam , [employer] Primary Care Provider Active Start: August 24, 2024 End: August 24, 2024 Dr. Stephanie Mtz MD Attending Provider Active Start: August 24, 2024 End: August 24, 2024 Dr. Stephanie Mtz MD Referring Provider Active Start: August 24, 2024 End: August 24, 2024 Team Status: Active Member Role/Relationship Status Dates Nancy Sam , [employer] Primary Care Provider Active Start: September 18, 2024 Dr. Stephanie Mtz MD Attending Provider Active Start: September 18, 2024 Dr. Stephanie Mtz MD Referring Provider Active Start: September 18, 2024 Dr. Stephanie Mtz MD Other Provider Active Start: September 18, 2024 Team Status: Inactive Member Role/Relationship Status Dates Nancy Sam [employer] Primary Care Provider Active Start: September 19, 2024 End: September 19, 2024 Dr. Stephanie Mtz MD Attending Provider Active Start: September 19, 2024 End: September 19, 2024 Dr. Stephanie Mtz MD Referring Provider Active Start: September 19, 2024 End: September 19, 2024 Team Status: Active Member Role/Relationship Status Dates Nancy Sam [employer] Primary Care Provider Active Start: September 19, 2024 Dr. Stephanie Mtz MD Attending Provider Active Start: September 19, 2024 Dr. Stephanie Mtz MD Referring Provider Active Start: September 19, 2024 Dr. Stephanie Mtz MD Other Provider Active Start: September 19, 2024 Scheduled Active and Recently Administ ered [...] BE BASED ON THE PRIMARY CLINICAL RECORDS. [facility] [employer] [facility]. provides no warranty or guarantee of the accuracy or completeness of information in this document.
== END 2024-09-19 16:52 | disposition home or self-care (01) ==
LOC: SDC 12:58 → AC 12:59
PROVIDERS: Anesthesiology; Referring Provider Obstetrics & Gynecology; Visit Provider Obstetrics & Gynecology
PROC: (CPT 58661; principal; 2024-09-19 14:15)
DX: Z30.2 Encounter for sterilization (principal); Z87.891 Personal history of nicotine dependence
CPT/HCPCS: 58661; 00840; 36415; 81025; 85025; 86850; 86900; 86901; 88302; J2405